=== PATIENT | female | born 1955 | race Caucasian/White ===

== ENCOUNTER 2017-07-09 14:01 | Emergency (ER) | payer OTHER ==
--- OUTSIDE RECORDS SUMMARY | 2017-07-09 14:03 | XMS REPORT | Clinical Summary ---
:1955 Author Organization [facility] Address [address] [place] [address] Phone Care Team Providers Name Role Phone Unavailable Primary Care Provider Unavailable Allergies Active Allergy Reactions Severity Noted Date Comments Cephalexin Other (See Comments) 07/28/2008 Cyclobenzaprine Hcl Other (See Comments) 07/28/2008 Loss of feeling in extremities Current Medications Prescription Sig. Disp. Refills Start Date End Date Status magnesium oxide Take 1 tablet 60 tablet 0 02/13/2017 Active (MAG-OX) 400 mg (400 mg total) by 8 tablet mouth 2 (two) times daily. blood-glucose Use as 1 each 0 02/13/2017 Active meter kit instructed. 8 metFORMIN Take 1 tablet 60 tablet 0 02/14/2017 Active (GLUCOPHAGE) 500 (500 mg total) by 8 MG tablet mouth 2 (two) times daily with breakfast and dinner. arformoterol Take 2 mLs (15 120 mL 0 02/13/2017 (BROVANA) 15 mcg total) by 8 mcg/2 mL nebulization 2 nebulizer (two) times daily solution for 30 days. budesonide Take 2 mLs (0.5 120 mL 0 02/13/2017 (PULMICORT) 0.5 mg total) by 8 mg/2 mL nebulizer nebulization 2 solution (two) times daily for 30 days. aspirin 81 MG EC Take 1 tablet (81 30 tablet 0 02/14/2017 tablet mg total) by 8 mouth daily for 30 days. furosemide Take 1 tablet (20 30 tablet 0 02/14/2017 (LASIX) 20 MG mg total) by 8 tablet mouth daily for 30 days. ipratropium-albut Take 3 mLs by 540 mL 0 02/13/2017 patricia (DUO-NEB) nebulization 8 0.5 mg-3 mg(2.5 every 4 (four) mg base)/3 mL hours for 30 nebulizer days. solution predniSONE Take 4 tablets 120 tablet 0 02/14/2017 (DELTASONE) 10 MG (40 mg total) by 8 tablet mouth daily for 30 days. insulin detemir 10 units every morning 4.5 mL 0 02/13/2017 Discontinued (LEVEMIR 5 units every evening. 7 FLEXTOUCH) 100 unit/mL (3 mL) InPn injection levoFLOXacin Take 1 tablet 10 tablet 0 02/14/2017 (LEVAQUIN) 500 MG (500 mg total) by 7 tablet mouth daily for 10 days. metoprolol Take 0.5 tablets 15 tablet 0 02/15/2017 (LOPRESSOR) 25 MG (12.5 mg total) 8 tablet by mouth daily for 30 days. Active Problems Problem Noted Date Acute hypercapnic respiratory failure ([facility]) 02/04/2017 Acute exacerbation of chronic obstructive pulmonary disease (COPD) ([facility]) 02/04 Acute diastolic CHF (congestive heart failure), NYHA class 4 ([facility]) 02/04/2017 Pleural effusion, right 02/04/2017 Community acquired pneumonia of right lower lobe of lung ([facility]) 02/04/2017 Severe protein-calorie malnutrition (Moe: less than 60% of standard 2016 weight) ([facility]) Encounters Date Type Specialty Care Team Description 02/04/2017 - Hospital Encounter Cardiology Duarte, Acute diastolic CHF 02/17/2017 Sander (congestive heart MD Aleta failure), NYHA class Arif, Sahar, 4 ([facility]);Acute MD exacerbation of josefa Alarcon MD pulmonary disease (COPD) ([facility]);Acute hypercapnic respiratory failure ([facility]);Community acquired pneumonia of right lower lobe of lung ([facility]);Pleural effusion, right;Severe protein-calorie malnutrition (Moe: less than 60% of standard weight) ([facility]) 02/04/2017 Orders Only General Internal Medicine after 07/08/2016 Social History Tobacco Use Types Packs/Day Years Used Date Never Assessed Sex Assigned at Date Recorded Not on file Last Filed Vital Signs Vital Sign Reading Time Taken Blood Pressure 111/66 02/17/2017 8:30 PM LIBRARIAN Pulse 80 02/17/2017 8:59 PM LIBRARIAN Temperature 36.8 C (98.2 F) 02/17/2017 8:30 PM LIBRARIAN Respiratory Rate 20 02/17/2017 8:59 PM LIBRARIAN Oxygen Saturation 97% 02/17/2017 8:59 PM LIBRARIAN Inhaled Oxygen Concentration - - Weight 37.1 kg (81 lb 14.4 oz) 02/17/2017 12:00 PM LIBRARIAN Height 165.1 cm (5' 5") 02/04/2017 6:00 PM LIBRARIAN Body Mass Index 13.63 02/17/2017 12:00 PM LIBRARIAN Plan of Treatment Not on file Results RHYTHM STRIP - SCAN (03/03/2017 2:01 PM)Only the most recent of2 resultswithin the time period is included.POC-Glucose meter (02/17/2017 8:29 PM)Only the most recent of37 resultswithin the time period is included. Component Value Ref Range POC-Glucose Meter 175 (H)Comment: TESTED AT [address] 70 - 110 mg/[place] [address] Specimen Performing Laboratory Blood [facility] [address] [address] CBC with platelet count + automated diff (02/17/2017 6:11 AM)Only the most recent of14 resultswithin the time period is included. Component Value Ref Range WBC 17.1 (H) 3.5 - 10.5 K/L RBC 3.96 3.93 - 5.22 M/L Hemoglobin 10.7 (L) 11.2 - 15.7 GM/DL Hematocrit 34.8 34.1 - 44.9 % MCV 87.9 79.4 - 94.8 fL MCH 27.0 25.6 - 32.2 pg MCHC 30.7 (L) 32.2 - 35.5 GM/DL RDW 15.6 (H) 11.7 - 14.4 % Platelets 334 150 - 450 K/CU MM MPV 11.1 9.4 - 12.3 fL nRBC 0 0 - 0 /100 WBC % Neutros 84 % % Lymphs 8 % % Monos 7 % % Eos 0 % % Baso 0 % # Neutros 14.26 (H) 1.56 - 6.13 K/L # Lymphs 1.43 1.18 - 3.74 K/L # Monos 1.10 (H) 0.24 - 0.36 K/L # Eos 0.05 0.04 - 0.36 K/L # Baso 0.01 0.01 - 0.08 K/L Immature Granulocytes-Relative 1 0 - 1 % Specimen Performing Laboratory Blood - Arm, [address] [address] CBC with platelet count + automated diff (02/17/2017 6:11 AM)Only the most recent of14 resultswithin the time period is included. Specimen Performing Laboratory Blood Narrative The following orders were created for panel order CBC with platelet count + automated diff. Procedure Abnormality Status --------- ------ CBC with platelet count ...[[id number]]AbnormalFinal result Please view results for these tests on the individual orders. Magnesium (02/17/2017 6:11 AM)Only the most recent of10 resultswithin the time period is included. Component Value Ref Range Magnesium 2.2 1.6 - 2.6 mg/dL Specimen Performing Laboratory Blood - Arm, [address] [address] Basic Metabolic Panel (02/17/2017 6:11 AM)Only the most recent of9 resultswithin the time period is included. Component Value Ref Range Sodium 133 (L) 136 - 145 meq/L Potassium 4.3 3.5 - 5.1 meq/L Chloride 91 (L) 98 - 107 meq/L CO2 34 (H) 22 - 29 meq/L BUN 19 7 - 21 mg/dL Creatinine 0.61 0.57 - 1.25 mg/dL Glucose 61 (L) 70 - 105 mg/dL Calcium 8.9 8.4 - 10.2 mg/dL EGFR 100Comment: ESTIMATED GFR IS NOT ACCURATE mL/min/1.73 sq m CREATININE CLEARANCE IN PREDICTING GLOMERULAR FILTRATION RATE. ESTIMATED GFR IS NOT APPLICABLE FOR DIALYSIS PATIENTS. Specimen Performing Laboratory Blood - Arm, Left [facility] [address] ECG 12 lead (02/15/2017 12:09 PM)Only the most recent of3 resultswithin the time period is included. Specimen Performing Laboratory GE MUSE Narrative Ventricular Rate 91 BPM Atrial Rate 91 BPM P-R Interval 94 ms QRS Duration 86 ms Q-T Interval 348 ms QTC Calculation(Bazett) 428 ms P [place] 39 degrees R [place] 21 degrees T [place] 65 degrees Sinus rhythm with short DE Moderate voltage criteria for LVH, may be normal variant When compared with ECG of 04-FEB-2017 21:46, Amplitude of the T waves has increased Confirmed by Julieta FREEMAN, KEVYN ([id number]) on 02/16/2017 8:24:59 AM Procedure Note Interface, External Ris In - 02/16/2017 8:25 AM LIBRARIAN Ventricular Rate 91 BPM Atrial Rate 91 BPM P-R Interval 94 ms QRS Duration 86 ms Q-T Interval 348 ms QTC Calculation(Bazett) 428 ms P [place] 39 degrees R [place] 21 degrees T [place] 65 degrees Sinus rhythm with short DE Moderate voltage criteria for LVH, may be normal variant When compared with ECG of 04-FEB-2017 21:46, Amplitude of the T waves has increased Confirmed by Julieta FREEMAN, KEVYN ([id number]) on 02/16/2017 8:24:59 AM Blood gas, arterial (02/13/2017 12:31 PM)Only the most recent of6 resultswithin the time period is included. Component Value Ref Range pH, Arterial 7.47 (H) 7.35 - 7.45 pCO2, Arterial 60 (H) 35 - 45 mmHg pO2, Arterial 79 (L) 80 - 90 mmHg O2 Sat, Arterial 96.2 96.0 - 97.0 % HCO3, Arterial 42 (HH) 21 - 29 mmol/L Base Excess, Arterial 15.6 (H) -2.0 - 3.0 mmol/L Patient Temperature 36.7 C FIO2 32.0 % Specimen Performing Laboratory Blood, Arterial - Arm, Left [facility] [address] [address] XR chest 1 view portable / bedside (02/11/2017 8:50 AM)Only the most recent of4 resultswithin the time period is included. Specimen Performing Laboratory GE RIS Narrative FINAL REPORT Chest one view INDICATION: Shortness of breath COMPARISON: 02/09/2017 IMPRESSION: There are low lung volumes with pulmonary vascular congestion and grossly stable perihilar and basilar opacities which could indicate atelectasis and mild edema. Pneumonitis should be excluded clinically. There is stable costophrenic angle blunting. The cardiomediastinal contours are stable. Postoperative, degenerative, and posttraumatic osseous changes are stable. No pneumothorax is seen. Signed: Reginald Mcclendon MD Report Verified Date/Time:02/11/2017 08:47:53 Reading Location: [facility] C0[facility] Neuro Reading Room Procedure Note Interface, External Ris In - 02/11/2017 8:51 AM LIBRARIAN FINAL REPORT Chest one view INDICATION: Shortness of breath COMPARISON: 02/09/2017 IMPRESSION: There are low lung volumes with pulmonary vascular congestion and grossly stable perihilar and basilar opacities which could indicate atelectasis and mild edema. Pneumonitis should be excluded clinically. There is stable costophrenic angle blunting. The cardiomediastinal contours are stable. Postoperative, degenerative, and posttraumatic osseous changes are stable. No pneumothorax is seen. Signed: Reginald Mcclendon MD Report Verified Date/Time: 02/11/2017 08:47:53 Reading Location: [facility] C0[facility] Neuro Reading Room Sputum Culture + Gram Stain (02/10/2017 11:29 AM) Component Value Ref Range Result 4+ Normal respiratory paul present Gram Stain Result 2+ WBCs Gram Stain Result 0-5 epithelial cells Gram Stain Result 4+ gram negative rods Gram Stain Result 4+ gram positive cocci in clusters Gram Stain Result 1+ yeast with pseudohyphae Specimen Performing Laboratory Sputum - Expectorated [facility] [address] [address] Manual Differential (02/10/2017 10:22 AM) Component Value Ref Range % Neutros (manual) 89 % % Lymphs (manual) 2 % % Monos (manual) 6 % % Bands (manual) 3 0 - 10 % # Neutros (manual) 24.21 (H) 1.80 - 8.00 K/L # Lymphs (manual) 0.54 (L) 1.48 - 4.50 K/L # Monos (manual) 1.63 (H) 0.00 - 1.30 K/L # Bands (manual) 0.8 0.0 - 0.8 K/L Total Counted 100 Bands plus Segmented Neutrophils 25.02 WBC Morphology Normal Platelet Morphology Normal RBC Morphology Normal Specimen Performing Laboratory Blood [address] [address] Lactic acid, venous, whole blood (02/10/2017 10:14 AM) Component Value Ref Range Lactate, Venous 1.8 0.5 - 2.2 mmol/L Specimen Performing Laboratory Blood - Arm, Left [address] [address] Narrative Effective 07/15/2015: Units/Reference Range Change New: 0.5-2.2 mmol/LPrevious: 5-20 mg/dL Hemoglobin A1c (02/08/2017 5:07 AM) Component Value Ref Range Hemoglobin A1C 5.8 4.3 - 6.1 % Specimen Performing Laboratory Blood [address] [address] Comprehensive metabolic panel (02/08/2017 5:07 AM)Only the most recent of5 resultswithin the time period is included. Component Value Ref Range Protein, Total 6.0 6.0 - 8.3 gm/dL Albumin 3.2 (L) 3.5 - 5.0 g/dL Alkaline Phosphatase 97 40 - 150 U/L Total Bilirubin 0.3 0.2 - 1.2 mg/dL Sodium 139 136 - 145 meq/L Potassium 4.7 3.5 - 5.1 meq/L Chloride 96 (L) 98 - 107 meq/L CO2 37 (H) 22 - 29 meq/L BUN 12 7 - 21 mg/dL Creatinine 0.54 (L) 0.57 - 1.25 mg/dL Glucose 172 (H) 70 - 105 mg/dL Calcium 8.7 8.4 - 10.2 mg/dL AST 33 5 - 34 U/L ALT 33 6 - 55 U/L EGFR 115Comment: ESTIMATED GFR IS NOT ACCURATE mL/min/1.73 sq m CREATININE CLEARANCE IN PREDICTING GLOMERULAR FILTRATION RATE. ESTIMATED GFR IS NOT APPLICABLE FOR DIALYSIS PATIENTS. Specimen Performing Laboratory Blood [facility] [address] [place] [address], [place] [address] US thoracentesis (02/07/2017 5:40 PM) Specimen Performing Laboratory GE RIS Narrative FINAL REPORT Procedure: Ultrasound-guided right thoracentesis, 02/07/2017 HISTORY: Right pleural effusion Anesthesia: 1% lidocaine Modality: Ultrasound Approach: Right posterior lateral chest TECHNIQUE: After obtaining written informed consent this procedure was performed without untoward effect. The chest was scanned and the maximum pocket of fluid was identified in the posterolateral aspect right hemithorax. Only a small effusion was demonstrated. The skin overlying this site was prepped and anesthetized and a 5 Cuban needle/catheter was inserted into the right pleural space. Four 25 cc of yellowish fluid were removed. A chest x-ray was ordered. CONCLUSION: Ultrasound-guided thoracentesis Signed: Dell Pacheco MD Report Verified Date/Time:02/07/2017 18:23:13 Reading Location: [address] Ultrasound Reading Room Procedure Note Interface, External Ris In - 02/07/2017 6:25 PM LIBRARIAN FINAL REPORT Procedure: Ultrasound-guided right thoracentesis, 02/07/2017 HISTORY: Right pleural effusion Anesthesia: 1% lidocaine Modality: Ultrasound Approach: Right posterior lateral chest TECHNIQUE: After obtaining written informed consent this procedure was performed without untoward effect. The chest was scanned and the maximum pocket of fluid was identified in the posterolateral aspect right hemithorax. Only a small effusion was demonstrated. The skin overlying this site was prepped and anesthetized and a 5 Cuban needle/catheter was inserted into the right pleural space. Four 25 cc of yellowish fluid were removed. A chest x-ray was ordered. CONCLUSION: Ultrasound-guided thoracentesis Signed: Dell Pacheco MD Report Verified Date/Time: 02/07/2017 18:23:13 Reading Location: [facility] P006 Ultrasound Reading Room Body fluid culture + gram stain (02/07/2017 5:15 PM) Component Value Ref Range Result No growth Gram Stain Result <1+ WBCs Gram Stain Result No organisms seen Specimen Performing Laboratory Body Fluid - Pleural, [address] [address] Body fluid cell count with differential (02/07/2017 5:15 PM) Component Value Ref Range Appearance Slightly Cloudy (A) Clear Color Yellow (A) Colorless, Straw RBCs 1000 (H) <=1 /cu mm Adjusted WBC Count 620 (H) <=5 /cu mm Lining Cells 74 (H) <=1 /cu mm % Segs 21 % % Lymphs 30 % % Monos 49 % % Eos 0 % % Baso 0 % Container Body Fluid EDTA Tube Specimen Performing Laboratory Body Fluid - Pleural, [address] [address] Protein, body fluid (02/07/2017 5:15 PM) Component Value Ref Range Protein, Fluid 1.8 Light's criteria identifies effusions if one or more are present: Pleural to serum protein ratio of more than 0.5; Pleural to Serum LDH of more than 0.6; Pleural LDH of more than two third of upper serum reference limit g/dL Specimen Performing Laboratory Body Fluid - Pleural, [address] [address] Narrative Absence of reference range indicates that normals have not been defined. Assay performance has not been validated for this type of specimen. Lactate dehydrogenase (LDH), body fluid (02/07/2017 5:15 PM) Component Value Ref Range LDH, Fluid <90 Light's criteria identifies effusions if one or more are present: Pleural to serum protein ratio of more than 0.5; Pleural to serum LDH ratio of more than 0.6; Pleural LDH more than two third of upper serum reference limit U/L Specimen Performing Laboratory Body Fluid - Pleural, [address] [address] Narrative Absence of reference range indicates that normals have not been defined. Assay performance has not been validated for this type of specimen. PT/aPTT (02/07/2017 11:22 AM) Component Value Ref Range Protime 13.4 11.7 - 14.7 seconds INR 1.0 <=5.9 PTT 25.9 22.5 - 36.0 seconds Specimen Performing Laboratory Blood - Arm, [address] [address] Narrative RECOMMENDED COUMADIN/WARFARIN INR THERAPY RANGES STANDARD DOSE: 2.0 - 3.0 Includes: PROPHYLAXIS for venous thrombosis, systemic embolization; TREATMENT for venous thrombosis and/or pulmonary embolus. HIGH RISK: Target INR is 2.5-3.5 for patients with mechanical heart valves. Lactate dehydrogenase (LDH) (02/07/2017 11:22 AM) Component Value Ref Range LDH 296 (H) 125 - 220 U/L Specimen Performing Laboratory Blood - Arm, [address] [address] Lipid panel (02/07/2017 3:22 AM) Component Value Ref Range Triglycerides 101 mg/dL Cholesterol 134 mg/dL HDL 52 mg/dL LDL Calculated 62 mg/dL Specimen Performing Laboratory Blood - Arm, [address] [address] Narrative Triglyceride Reference Range: Low Risk <150 [id number] High Risk 200-499 Very High Risk>=500 Cholesterol Reference Range: Low Risk <200 [id number] High Risk>240 HDL Cholesterol Reference Range: Low Risk >=60 High Risk <40 LDL Cholesterol Reference Range: Optimal<100 Near [id number] [id number] [id number] Very High >=190 CT chest without IV contrast (02/06/2017 10:03 PM) Specimen Performing Laboratory GE RIS Narrative FINAL REPORT INDICATION: 62-year-old female with hypoxia. COMPARISON: Chest radiograph February 04, 2017 TECHNIQUE: Chest CT exam WITHOUT intravenous contrast. The exam was performed according to our department dose-optimization protocol, which includes automated exposure control, adjustments of mA and kV according to patient size. Iterative reconstructions are also sometimes employed. FINDINGS: There is a moderate low-density layering right pleural effusion with associated partial collapse of the right basilar segments. There is no pneumonia, pulmonary edema, or left pleural effusion. Central airways are clear. No mediastinal or hilar lymphadenopathy is demonstrated. Mildly patulous esophagus is noted. Thyroid gland unremarkable. There is mild enlargement of the left atrium. There is no coronary artery calcification and there is mild calcified plaque of the aortic arch. Main pulmonary artery and thoracic aorta are normal in caliber. No pericardial effusion. Partial imaging of the upper abdomen is notable for a IVC filter. Osseous structures are notable for scoliosis and several contiguous compression deformities of the thoracolumbar junction resulting in severe kyphosis. No suspicious osseous lesion demonstrated. IMPRESSION: Moderate right pleural effusion with partial collapse of the right basilar segments. No pneumonia, pulmonary edema, or left pleural effusion. Mild cardiomegaly. Scoliosis and severe kyphosis at the thoracolumbar junction. Signed: Jh Sepulveda MD Report Verified Date/Time:02/06/2017 23:24:50 Reading Location: [address] Consult Reading Room Procedure Note Interface, External Ris In - 02/06/2017 11:27 PM LIBRARIAN FINAL REPORT INDICATION: 62-year-old female with hypoxia. COMPARISON: Chest radiograph February 04, 2017 TECHNIQUE: Chest CT exam WITHOUT intravenous contrast. The exam was performed according to our department dose-optimization protocol, which includes automated exposure control, adjustments of mA and kV according to patient size. Iterative reconstructions are also sometimes employed. FINDINGS: There is a moderate low-density layering right pleural effusion with associated partial collapse of the right basilar segments. There is no pneumonia, pulmonary edema, or left pleural effusion. Central airways are clear. No mediastinal or hilar lymphadenopathy is demonstrated. Mildly patulous esophagus is noted. Thyroid gland unremarkable. There is mild enlargement of the left atrium. There is no coronary artery calcification and there is mild calcified plaque of the aortic arch. Main pulmonary artery and thoracic aorta are normal in caliber. No pericardial effusion. Partial imaging of the upper abdomen is notable for a IVC filter. Osseous structures are notable for scoliosis and several contiguous compression deformities of the thoracolumbar junction resulting in severe kyphosis. No suspicious osseous lesion demonstrated. IMPRESSION: Moderate right pleural effusion with partial collapse of the right basilar segments. No pneumonia, pulmonary edema, or left pleural effusion. Mild cardiomegaly. Scoliosis and severe kyphosis at the thoracolumbar junction. Signed: Jh Sepulveda MD Report Verified Date/Time: 02/06/2017 23:24:50 Reading Location: [address] Consult Reading Room /Free T4 If Indicated (02/06/2017 6:44 PM) Component Value Ref Range TSH 0.47 0.35 - 4.94 uIU/mL Specimen Performing Laboratory Blood - Arm, [address] [address] Troponin I (02/06/2017 12:50 PM)Only the most recent of4 resultswithin the time period is included. Component Value Ref Range Troponin I 0.08 (H) 0.00 - 0.03 ng/mL Specimen Performing Laboratory Blood [address] [address] Narrative Troponin I (TnI) levels must be interpreted in the context of the presenting symptoms and the clinical findings. Elevated TnI levels indicate myocardial damage, but are not specific for ischemic heart disease. Elevated TnI levels are seen in patients with other cardiac conditions (including myocarditis and congestive heart failure), and slight TnI elevations occur in patients with other conditions, including sepsis, renal failure, acidosis, acute neurological disease, and persistent tachyarrhythmia. Vancomycin level, trough (02/06/2017 8:41 AM) Component Value Ref Range Vancomycin Tr 8.6 (L) 10.0 - 20.0 ug/mL Specimen Performing Laboratory Blood [address] [address] Hepatitis C PCR, Quantitative (02/06/2017 5:45 AM) Component Value Ref Range HCV PCR, Quantitative HCV RNA not detected HCV RNA not detected Specimen Performing Laboratory Blood - Arm, [address] [address] Narrative This test uses a Real-Time Polymerase Chain Reaction (RT-PCR) methodology and was performed using ANN Ampliprep/ANN TaqMan HCV test kit version 2.0 ( [employer]). Reportable range for this assay is 15 - 100,000,000 IU per mL (1.18 - 8.00 Log IU/mL). This test uses a Real-Time Polymerase Chain Reaction (RT-PCR) methodology and was performed using ANN Ampliprep/ANN TaqMan HCV test kit version 2.0 ( [employer] Reportable range for this assay is 15 - 100,000,000 IU per mL (1.18 - 8.00 Log IU/mL). ECHOCARDIOGRAM REPORT - SCAN (02/05/2017 5:20 PM)2D Echo W/Doppler(CW/PW/Color ) (02/05/2017 10:40 AM) Component Value Ref Range Ejection Fraction Specimen Performing Laboratory [facility] ECHO HEARTLAB S[facility]NEY CPACS Narrative Transthoracic Echocardiography Report (TTE) Demographics Patient Name ALEE KOO Date of Study 02/05/2017 Cailin [id number] GenderFemale Visit Number [id number] Race Unknown [id number] Number [id number] Number Date of Birth1955 Referring Physician Age62 year(s) Director Of Outpatient Services Freddy Fowler [facility] AnalystIzomary Casper InterpretingPhysician [place] Procedure Type of Study TTE procedure:2DECHO W DOPPLER(CW/PW/COLOR) (JES) Indications:Shortness of breath. Clinical History HGB 10.1 HCT 32.9 % COPD Congestive Heart Failure Pleural effusion Pneumonia Height: 65 inches Weight: 42.64 kg (94 lbs) BSA: 1.44 m^2 BMI: 15.64 kg/m^2 HR: 90 bpm BP: 114/73 mmHg Summary 1. All of the LV segments contract normally . LVEF by Nichole's method of disk assessment is normal (>60%) 2. Estimated peak systolic PA pressure is 35-40 mmHg . 3. The right ventricular chamber size and systolic function are within normal limits. 4. Normal LA pressure at rest but LA volume is dilated. Previous Study No prior exam available for comparison. Signature Findings Left Ventricle No evidence of LV hypertrophy. Increased ( cardiac index 3.5-4.0 L/min/m2) cardiac output state at rest is noted. All of the LV segments contract normally . Global LV systolic function normal . LVEF by Nichole's method of disk assessment is normal (>60%) . The LVEF was measured using Nichole's bi-plane method of disk . The left ventricle is chamber size (by vol index) is normal (female - LVED vol - 29-61ml/m2 ). Normal diastolic function. Left AtriumLA size is severely enlarged (>48 ml/m2 ) . Right VentricleThe right ventricular chamber size and systolic function are within normal limits. Right Atrium RA cavity size is normal . Aortic Valve Normal AoV structure and function. No evidence of aortic regurgitation. Mitral Valve Mild MV leaflet thickening. No evidence of mitral regurgitation. Tricuspid ValveMild TV leaflet thickening. Mild tricuspid regurgitation. Estimated peak systolic PA pressure is 35-40 mmHg . Pulmonic Valve Normal PV structure and function. AortaAortic root size (SInus of Valsalva diameter) is normal . PericardiumA trivial pericardial effusion is present . IVC/SVC/PA/PV/PleuralThe estimated RA pressure by IVC dynamics 5-10mmHg . Chambers/Structures Left Atrium LA Volume: 79.52 ml LA Area: 24.32 cm^ 2 LA Vol. Index: 55 ml/m^2 Left Ventricle LV Septum Diastolic: 0.93 cm LV PW Diastolic: 0.75 cm LVEDV Nichole's:79.93 ml LVESV Nichole's:27.68 ml LVEF Nichole's: 65.4 % LVEDVI: 56 ml/m^2 LVOT Diameter: 1.7 cm LVESVI: 19 ml/m^2 Right Atrium RA Vol. (Sngl Plane): 35.34 ml Right Ventricle TAPSE: 2.4 cm Aorta Ao Root S of Fatimah.: 2.83 cm Doppler/Quantitative Measurements Mitral Valve MV Peak E-Wave: 0.82 m/sMV Peak A-Wave: 0.55 m /s E/A Ratio: 1.5 Peak Gradient: 2.69 mmHg Deceleration Time: 162 msec MV Alfredo. Peak: Tissue Doppler E' Lateral Velocity: 0.16 m/s E/E': 5.05 LVOT Peak Velocity: 1.41 m/s Peak Gradient: 7.96 mmHg Mean Velocity: 1.02 m/s Mean Gradient: 4.65 mmHg LVOT Diameter: 1.7 cm LVOT VTI: 27.63 cm LVOT Area: 2.27 cm^2LVOT SV:62.68 ml LVOT CO: 5.64 l/min LVOT CI: 3.92 l/min/m^2 Tricuspid Valve TR Velocity: 2.84 m/s TR Gradient: 32.24 mmHg Procedure Note Interface, External Ris In - 02/05/2017 4:54 PM LIBRARIAN Transthoracic Echocardiography Report (TTE) Demographics Patient Name ALEE KOO Date of Study 02/05/2017 L Gender Female Visit Number [id number] Race Unknown Room Number 1051 Number Date of 1955 Referring Physician Age 62 year(s) Director Of Outpatient Services Freddy Fowler [facility] Line [employer] Tower Juan Casper Interpreting Physician S[place] Oliver[place] Procedure Type of Study TTE procedure:2DECHO W DOPPLER(CW/PW/COLOR) (JES) Indications:Shortness of breath. Clinical History HGB 10.1 HCT 32.9 % COPD Congestive Heart Failure Pleural effusion Pneumonia Height: 65 inches Weight: 42.64 kg (94 lbs) BSA: 1.44 m^2 BMI: 15.64 kg/m^2 HR: 90 bpm BP: 114/73 mmHg Summary 1. All of the LV segments contract normally . LVEF by Nichole's method of disk assessment is normal (>60%) 2. Estimated peak systolic PA pressure is 35-40 mmHg . 3. The right ventricular chamber size and systolic function are within normal limits. 4. Normal LA pressure at rest but LA volume is dilated. Previous Study No prior exam available for comparison. Signature Findings Left Ventricle No evidence of LV hypertrophy. Increased (cardiac index 3.5-4.0 L/min/m2) cardiac output state at rest is noted. All of the LV segments contract normally . Global LV systolic function normal . LVEF by Nichole's method of disk assessment is normal (>60%) . The LVEF was measured using Nichole's bi-plane method of disk . The left ventricle is chamber size (by vol index) is normal (female - LVED vol - 29-61ml/m2). Normal diastolic function. Left Atrium LA size is severely enlarged (>48 ml/m2) . Right Ventricle The right ventricular chamber size and systolic function are within normal limits. Right Atrium RA cavity size is normal . Aortic Valve Normal AoV structure and function. No evidence of aortic regurgitation. Mitral Valve Mild MV leaflet thickening. No evidence of mitral regurgitation. Tricuspid Valve Mild TV leaflet thickening. Mild tricuspid regurgitation. Estimated peak systolic PA pressure is 35-40 mmHg . Pulmonic Valve Normal PV structure and function. Aorta Aortic root size (SInus of Valsalva diameter) is normal . Pericardium A trivial pericardial effusion is present . IVC/SVC/PA/PV/Pleural The estimated RA pressure by IVC dynamics 5-10mmHg . Chambers/Structures Left Atrium LA Volume: 79.52 ml LA Area: 24.32 cm^2 LA Vol. Index: 55 ml/m^2 Left Ventricle LV Septum Diastolic: 0.93 cm LV PW Diastolic: 0.75 cm LVEDV Nichole's:79.93 ml LVESV Nichole's:27.68 ml LVEF Nichole's: 65.4 % LVEDVI: 56 ml/m^2 LVOT Diameter: 1.7 cm LVESVI: 19 ml/m^2 Right Atrium RA Vol. (Sngl Plane): 35.34 ml Right Ventricle TAPSE: 2.4 cm Aorta Ao Root S of Fatimah.: 2.83 cm Doppler/Quantitative Measurements Mitral Valve MV Peak E-Wave: 0.82 m/s MV Peak A-Wave: 0.55 m/s E/A Ratio: 1.5 Peak Gradient: 2.69 mmHg Deceleration Time: 162 msec MV Alfredo. Peak: Tissue Doppler E' Lateral Velocity: 0.16 m/s E/E': 5.05 LVOT Peak Velocity: 1.41 m/s Peak Gradient: 7.96 mmHg Mean Velocity: 1.02 m/s Mean Gradient: 4.65 mmHg LVOT Diameter: 1.7 cm LVOT VTI: 27.63 cm LVOT Area: 2.27 cm^2 LVOT SV:62.68 ml LVOT CO: 5.64 l/min LVOT CI: 3.92 l/min/m^2 Tricuspid Valve TR Velocity: 2.84 m/s TR Gradient: 32.24 mmHg PERIPHERAL VASCULAR REPORT - SCAN (02/05/2017 7:20 AM)Procalcitonin (2016 4:34 AM) Component Value Ref Range Procalcitonin 0.26 (H) <0.05 ng/mL Specimen Performing Laboratory Blood - Arm, [facility] [address] [place] [address] Narrative SEPSIS RISK (ng/mL) Low:0.05-0.50 Intermediate: 0.51-2.00 High: >=2.01 Blood culture (02/05/2017 4:33 AM)Only the most recent of2 resultswithin the time period is included. Component Value Ref Range Result No growth in 5 days Specimen Performing Laboratory Blood - Arm, [facility] [address] [place] [address] Venous doppler legs bilateral (02/04/2017 10:30 PM) Component Value Ref Range Ejection Fraction Specimen Performing Laboratory [facility] Imp[facility] Right Impression 1. There is no deep venous obstruction in the common femoral, profunda femoral, femoral, popliteal, posterior tibial or peroneal veins where visualized. 2. There is no superficial venous obstruction in the great saphenous vein where visualized. Left Impression 1. There is no deep venous obstruction in the common femoral, profunda femoral, femoral, popliteal, posterior tibial or peroneal veins where visualized. 2. There is no superficial venous obstruction in the great saphenous vein where visualized. Conclusions Summary Venous duplex imaging and compression of the bilateral lower extremities were performed. The veins were technically difficult to visualize due to edema and patient body habitus. The bilateral venous systems were patent and compressible with no evidence of thrombus where visualized. The venous Doppler waveforms were pulsatile indicating possible elevated right heart filling pressure. Signature Velocities are measured in cm/s ; Diameters are measured in cm Narrative PV LAB - Lower Extremities DVT Study Demographics Patient ALEE Bazzi Date of Study 02/04/2017 Age 62 Visit [id number] Gender Female Date of 01/30 Number Referring Sander Room Number 7104 Physician Aleta Duarte Director Of Outpatient Services Kasandra Aden T InterpretingAdam Schmid Physician , BRENDA Procedure Type of Study: Veins: Lower Extremities DVT Study, VENOUS DOPPLER LEG, BILATERAL. Indications for Study:History of deep vein thrombosis and Leg Edema. Patient Status:JES. Study Location:Portable. Technical Quality:Adequate visualization. Risk Factors History of Disease + +----+ + !Diagnosis !Date!Comments ! + +----+ + !History/Risk Factors: !!CHF, COPD, pancreatitis and smoker. ! + +----+ + Procedure Note Interface, External Ris In - 02/05/2017 5:52 AM LIBRARIAN PV LAB - Lower Extremities DVT Study Demographics Patient Name ALEE KOO Date of Study 02/04/2017 Age 62 Visit Number [id number] Gender Female Date of 1955 Number Referring Sander Room Number [id number] Physician Aleta Duarte Director Of Outpatient Services Kasandra Aden T Interpreting Adam Schmid, Physician , RPVI Procedure Type of Study: Veins: Lower Extremities DVT Study, VENOUS DOPPLER LEG, BILATERAL. Indications for Study:History of deep vein thrombosis and Leg Edema. Patient Status:JES. Study Location:Portable. Technical Quality:Adequate visualization. Risk Factors History of Disease + +----+ + !Diagnosis !Date!Comments ! + +----+ + !History/Risk Factors: ! !CHF, COPD, pancreatitis and smoker. ! + +----+ + Impressions Right Impression 1. There is no deep venous obstruction in the common femoral, profunda femoral, femoral, popliteal, posterior tibial or peroneal veins where visualized. 2. There is no superficial venous obstruction in the great saphenous vein where visualized. Left Impression 1. There is no deep venous obstruction in the common femoral, profunda femoral, femoral, popliteal, posterior tibial or peroneal veins where visualized. 2. There is no superficial venous obstruction in the great saphenous vein where visualized. Conclusions Summary Venous duplex imaging and compression of the bilateral lower extremities were performed. The veins were technically difficult to visualize due to edema and patient body habitus. The bilateral venous systems were patent and compressible with no evidence of thrombus where visualized. The venous Doppler waveforms were pulsatile indicating possible elevated right heart filling pressure. Signature Velocities are measured in cm/s ; Diameters are measured in cm Rapid Influenza A&B Screen (02/04/2017 10:09 PM) Component Value Ref Range Rapid Influenza A Antigen Negative Negative, Inconclusive Rapid influenza B Antigen Negative Negative, Inconclusive Specimen Performing Laboratory Nasal - Nasopharyngeal Swab [address] [address] Respiratory Panel [facility] (02/04/2017 10:07 PM) Component Value Ref Range Human Metapneumovirus Not detected Not detected, Inconclusive Rhinovirus Not detected Not detected, Inconclusive Influenza A Not detected Not detected, Inconclusive Influenza A subtype H1 Not detected Not detected, Inconclusive Influenza A Subtype H3 Not detected Not detected, Inconclusive Influenza A Subtype H1-2009 Not detected Not detected, Inconclusive Influenza B Not detected Not detected, Inconclusive Respiratory Syncytial Virus Not detected Not detected, Inconclusive Parainfluenza Virus 1 Not detected Not detected, Inconclusive Parainfluenza Virus 2 Not detected Not detected, Inconclusive Parainfluenza virus 3 Not detected Not detected, Inconclusive Parainfluenza Virus 4 Not detected Not detected, Inconclusive Adenovirus Not detected Not detected, Inconclusive Coronavirus 229E Not detected Not detected, Inconclusive Coronavirus HKU1 Not detected Not detected, Inconclusive Coronavirus NL63 Not detected Not detected, Inconclusive Coronavirus OC43 Not detected Not detected, Inconclusive Bordetella Pertussis Not detected Not detected, Inconclusive Chlamydophila Pneumoniae Not detected Not detected, Inconclusive Mycoplasma Pneumoniae Not detected Not detected, Inconclusive Specimen Performing Laboratory Nasopharyngeal - Nasopharynx, [address] [address] HIV-1 Antigen with HIV-1/2 Antibody (02/04/2017 9:40 PM) Component Value Ref Range HIV-1 Antigen with HIV 1&2 Antibody Nonreactive Nonreactive Specimen Performing Laboratory Blood - Arm, [address] [address] Hepatitis C antibody (02/04/2017 9:40 PM) Component Value Ref Range Hepatitis C Ab Equivocal (A) Nonreactive Specimen Performing Laboratory Blood - Arm, [address] [address] Hepatitis B core antibody, total (02/04/2017 9:40 PM) Component Value Ref Range Hep B Core Total Ab Nonreactive Nonreactive Specimen Performing Laboratory Blood - Arm, [address] [address] Prothrombin time/INR (02/04/2017 9:33 PM) Component Value Ref Range Protime 14.3 11.7 - 14.7 seconds INR 1.1 <=5.9 Specimen Performing Laboratory Blood - Arm, [address] [address] Narrative RECOMMENDED COUMADIN/WARFARIN INR THERAPY RANGES STANDARD DOSE: 2.0 - 3.0 Includes: PROPHYLAXIS for venous thrombosis, systemic embolization; TREATMENT for venous thrombosis and/or pulmonary embolus. HIGH RISK: Target INR is 2.5-3.5 for patients with mechanical heart valves. Phosphorus (02/04/2017 9:33 PM) Component Value Ref Range Phosphorus 3.4 2.3 - 4.7 mg/dL Specimen Performing Laboratory Blood - Arm, [address] [address] B-type Natriuretic Factor (BNP) (02/04/2017 9:33 PM) Component Value Ref Range BNP 364 (H) 0 - 100 pg/mL Specimen Performing Laboratory Blood - Arm, [address] [address] Urine culture (02/04/2017 9:13 PM) Component Value Ref Range Result Result >100,000 col/mL Susan glabrata (A) Specimen Performing Laboratory Urine - Urine, [address] [address] Urinalysis w/Microscopic (02/04/2017 9:12 PM) Component Value Ref Range Color, UA Yellow Clarity, UA Clear Specific [place], UA 1.019 1.001 - 1.035 pH, UA 5.0 5.0 - 8.0 Protein, UA 10 mg/dL (A) Negative Glucose, UA Negative Negative Ketones, UA 80 mg/dL (A) Negative Bilirubin, UA Negative Negative Blood, UA Negative Negative Nitrite, UA Negative Negative Leukocytes, UA Small (A) Negative Urobilinogen, UA 0.2 0.2 - 1.0 mg/dL RBC, UA 1 /HPF WBC, UA 9 /HPF Bacteria, UA Rare Mucus Rare Squam Epithel, UA 1 /HPF Casts 2 /LPF Crystals, Urine Rare Specimen Source Urine, [place] Specimen Performing Laboratory Urine - Urine, [address] [address] after 07/08/2016
--- OUTSIDE RECORDS SUMMARY | 2017-07-09 14:05 | XMS REPORT ---
:1955 [facility] [address] [place] [id number] Care Team Providers Name Role Phone LINO ROSALESGENEVALICHA Unavailable Unavailable Problems This patient has no known problems. Allergies, Adverse Reactions, Alerts This patient has no known allergies or adverse reactions. Medications This patient has no known medications. Results Test Description Test Time Test Comments Text Results Atomic Results Result Comments POCT-GLUCOSE METER 2017-02-17 20:48:00 Test Item Value Reference Range Comments POC-GLUCOSE METER (BEAKER) (test 175 mg/dL 70-110 TESTED AT [facility] [address] [place] [address] znhq=1393) [facility] [address] POCT-GLUCOSE [id number] 08:27:00 Test Item Value Reference Range Comments POC-GLUCOSE METER (BEAKER) 83 mg/dL 70-110 TESTED AT [address] (test kgum=4767) [facility] [address] CBC W/PLT COUNT & AUTO [id number] 07:16:00 Test Item Value Reference Range Comments WHITE BLOOD CELL COUNT (BEAKER) (test fjmn=919) 17.1 K/ L 3.5-10.5 RED BLOOD CELL COUNT (BEAKER) (test cqxe=406) 3.96 M/ L 3.93-5.22 HEMOGLOBIN (BEAKER) (test lpac=077) 10.7 GM/DL 11.2-15.7 HEMATOCRIT (BEAKER) (test ytti=426) 34.8 % 34.1-44.9 MEAN CORPUSCULAR VOLUME (BEAKER) (test wcjc=974) 87.9 fL 79.4-94.8 MEAN CORPUSCULAR HEMOGLOBIN (BEAKER) (test 27.0 pg 25.6-32.2 tqdm=883) MEAN CORPUSCULAR HEMOGLOBIN CONC (BEAKER) (test 30.7 GM/DL 32.2-35.5 ceez=789) RED CELL DISTRIBUTION WIDTH (BEAKER) (test 15.6 % 11.7-14.4 hzjz=215) PLATELET COUNT (BEAKER) (test dakj=419) 334 K/CU MM 150-450 MEAN PLATELET VOLUME (BEAKER) (test ouqq=845) 11.1 fL 9.4-12.3 NUCLEATED RED BLOOD CELLS (BEAKER) (test 0 /100 WBC 0-0 bvmu=987) NEUTROPHILS RELATIVE PERCENT (BEAKER) (test 84 % fmhn=945) LYMPHOCYTES RELATIVE PERCENT (BEAKER) (test 8 % uesh=300) MONOCYTES RELATIVE PERCENT (BEAKER) (test 7 % jfif=328) EOSINOPHILS RELATIVE PERCENT (BEAKER) (test 0 % zhtr=362) BASOPHILS RELATIVE PERCENT (BEAKER) (test 0 % lbum=574) NEUTROPHILS ABSOLUTE COUNT (BEAKER) (test 14.26 K/ L 1.56-6.13 zewp=206) LYMPHOCYTES ABSOLUTE COUNT (BEAKER) (test 1.43 K/ L 1.18-3.74 gifx=118) MONOCYTES ABSOLUTE COUNT (BEAKER) (test 1.10 K/ L 0.24-0.36 lwck=693) EOSINOPHILS ABSOLUTE COUNT (BEAKER) (test 0.05 K/ L 0.04-0.36 hmqq=271) BASOPHILS ABSOLUTE COUNT (BEAKER) (test 0.01 K/ L 0.01-0.08 ysso=579) IMMATURE GRANULOCYTES-RELATIVE PERCENT (BEAKER) 1 % 0-1 (test gdch=6988) [id number] 07:00:00 Test Item Value Reference Range Comments MAGNESIUM (BEAKER) (test toxb=018) 2.2 mg/dL 1.6-2.6 BASIC METABOLIC [id number] 07:00:00 Test Item Value Reference Range Comments SODIUM (BEAKER) (test 133 meq/L 136-145 wbbi=525) POTASSIUM (BEAKER) (test 4.3 meq/L 3.5-5.1 jqkn=787) CHLORIDE (BEAKER) (test 91 meq/L 98-107 kild=779) CO2 (BEAKER) (test 34 meq/L 22-29 qfta=179) BLOOD UREA NITROGEN 19 mg/dL 7-21 (BEAKER) (test dkwc=495) CREATININE (BEAKER) (test 0.61 mg/dL 0.57-1.25 asan=090) GLUCOSE RANDOM (BEAKER) 61 mg/dL 70-105 (test wdsw=526) CALCIUM (BEAKER) (test 8.9 mg/dL 8.4-10.2 cgcp=998) EGFR (BEAKER) (test 100 mL/min/1.73 sq m ESTIMATED GFR IS NOT evue=4444) ACCURATE CREATININE CLEARANCE IN PREDICTING GLOMERULAR FILTRATION RATE. ESTIMATED GFR IS NOT APPLICABLE FOR DIALYSIS PATIENTS. POCT-GLUCOSE [id number] 20:42:00 Test Item Value Reference Range Comments POC-GLUCOSE METER (BEAKER) 183 mg/dL 70-110 TESTED AT [address] (test rrkf=1534) [facility] [address] POCT-GLUCOSE [id number] 11:38:00 Test Item Value Reference Range Comments POC-GLUCOSE METER (BEAKER) 130 mg/dL 70-110 TESTED AT [address] (test calx=6948) [place] [id number] POCT-GLUCOSE [id number] 08:08:00 Test Item Value Reference Range Comments POC-GLUCOSE METER (BEAKER) 67 mg/dL 70-110 Will Repeat Test/TESTED AT (test risq=8334) [address] [address] [id number] 06:51:00 Test Item Value Reference Range Comments MAGNESIUM (BEAKER) (test kyov=866) 2.0 mg/dL 1.6-2.6 BASIC METABOLIC [id number] 06:51:00 Test Item Value Reference Range Comments SODIUM (BEAKER) (test 134 meq/L 136-145 vomd=256) POTASSIUM (BEAKER) (test 4.4 meq/L 3.5-5.1 wdou=781) CHLORIDE (BEAKER) (test 92 meq/L 98-107 ewpx=285) CO2 (BEAKER) (test 34 meq/L 22-29 rbof=366) BLOOD UREA NITROGEN 17 mg/dL 7-21 (BEAKER) (test snyp=065) CREATININE (BEAKER) (test 0.56 mg/dL 0.57-1.25 alsz=602) GLUCOSE RANDOM (BEAKER) 66 mg/dL 70-105 (test xhfc=515) CALCIUM (BEAKER) (test 8.8 mg/dL 8.4-10.2 sfib=649) EGFR (BEAKER) (test 110 mL/min/1.73 sq m ESTIMATED GFR IS NOT mskq=4377) ACCURATE CREATININE CLEARANCE IN PREDICTING GLOMERULAR FILTRATION RATE. ESTIMATED GFR IS NOT APPLICABLE FOR DIALYSIS PATIENTS. CBC W/PLT COUNT & AUTO [id number] 06:00:00 Test Item Value Reference Range Comments WHITE BLOOD CELL COUNT (BEAKER) (test rbps=437) 17.0 K/ L 3.5-10.5 RED BLOOD CELL COUNT (BEAKER) (test qzqh=814) 4.16 M/ L 3.93-5.22 HEMOGLOBIN (BEAKER) (test wtaj=530) 11.1 GM/DL 11.2-15.7 HEMATOCRIT (BEAKER) (test zedo=015) 36.3 % 34.1-44.9 MEAN CORPUSCULAR VOLUME (BEAKER) (test flml=054) 87.3 fL 79.4-94.8 MEAN CORPUSCULAR HEMOGLOBIN (BEAKER) (test 26.7 pg 25.6-32.2 fasi=579) MEAN CORPUSCULAR HEMOGLOBIN CONC (BEAKER) (test 30.6 GM/DL 32.2-35.5 fsjg=280) RED CELL DISTRIBUTION WIDTH (BEAKER) (test 15.6 % 11.7-14.4 zvcd=312) PLATELET COUNT (BEAKER) (test ffxs=171) 293 K/CU MM 150-450 MEAN PLATELET VOLUME (BEAKER) (test lidx=960) 11.7 fL 9.4-12.3 NUCLEATED RED BLOOD CELLS (BEAKER) (test 0 /100 WBC 0-0 ssvk=821) NEUTROPHILS RELATIVE PERCENT (BEAKER) (test 81 % kxdw=188) LYMPHOCYTES RELATIVE PERCENT (BEAKER) (test 9 % qsie=173) MONOCYTES RELATIVE PERCENT (BEAKER) (test 8 % wemu=876) EOSINOPHILS RELATIVE PERCENT (BEAKER) (test 1 % sbed=490) BASOPHILS RELATIVE PERCENT (BEAKER) (test 0 % jrfl=312) NEUTROPHILS ABSOLUTE COUNT (BEAKER) (test 13.77 K/ L 1.56-6.13 zrtq=731) LYMPHOCYTES ABSOLUTE COUNT (BEAKER) (test 1.51 K/ L 1.18-3.74 egmt=442) MONOCYTES ABSOLUTE COUNT (BEAKER) (test 1.35 K/ L 0.24-0.36 qfzd=859) EOSINOPHILS ABSOLUTE COUNT (BEAKER) (test 0.08 K/ L 0.04-0.36 fwok=814) BASOPHILS ABSOLUTE COUNT (BEAKER) (test 0.04 K/ L 0.01-0.08 lghc=044) IMMATURE GRANULOCYTES-RELATIVE PERCENT (BEAKER) 1 % 0-1 (test ievx=8985) POCT-GLUCOSE [id number] 21:21:00 Test Item Value Reference Range Comments POC-GLUCOSE METER (BEAKER) 177 mg/dL 70-110 TESTED AT [address] (test ovwf=9928) [facility] [address] POCT-GLUCOSE [id number] 17:52:00 Test Item Value Reference Range Comments POC-GLUCOSE METER (BEAKER) 191 mg/dL 70-110 TESTED AT [address] (test hiyr=6669) [facility] [address] POCT-GLUCOSE [id number] 11:46:00 Test Item Value Reference Range Comments POC-GLUCOSE METER (BEAKER) 145 mg/dL 70-110 TESTED AT [address] (test ehtf=8358) [facility] [address] POCT-GLUCOSE [id number] 07:59:00 Test Item Value Reference Range Comments POC-GLUCOSE METER (BEAKER) 89 mg/dL 70-110 TESTED AT [address] (test iwrq=4185) [facility] [address] [id number] 04:29:00 Test Item Value Reference Range Comments MAGNESIUM (BEAKER) (test mcpf=115) 2.1 mg/dL 1.6-2.6 BASIC METABOLIC [id number] 04:29:00 Test Item Value Reference Range Comments SODIUM (BEAKER) (test 134 meq/L 136-145 rkvi=039) POTASSIUM (BEAKER) (test 4.7 meq/L 3.5-5.1 geei=584) CHLORIDE (BEAKER) (test 91 meq/L 98-107 vbpo=989) CO2 (BEAKER) (test 36 meq/L 22-29 cmdv=456) BLOOD UREA NITROGEN 14 mg/dL 7-21 (BEAKER) (test kegt=488) CREATININE (BEAKER) (test 0.56 mg/dL 0.57-1.25 ydjv=400) GLUCOSE RANDOM (BEAKER) 138 mg/dL 70-105 (test stdu=528) CALCIUM (BEAKER) (test 8.3 mg/dL 8.4-10.2 hbzo=723) EGFR (BEAKER) (test 110 mL/min/1.73 sq m ESTIMATED GFR IS NOT ucce=7311) ACCURATE CREATININE CLEARANCE IN PREDICTING GLOMERULAR FILTRATION RATE. ESTIMATED GFR IS NOT APPLICABLE FOR DIALYSIS PATIENTS. CBC W/PLT COUNT & AUTO [id number] 04:18:00 Test Item Value Reference Range Comments WHITE BLOOD CELL COUNT (BEAKER) (test ahgj=475) 14.1 K/ L 3.5-10.5 RED BLOOD CELL COUNT (BEAKER) (test yodl=235) 4.06 M/ L 3.93-5.22 HEMOGLOBIN (BEAKER) (test ozkm=499) 11.1 GM/DL 11.2-15.7 HEMATOCRIT (BEAKER) (test klsv=795) 35.9 % 34.1-44.9 MEAN CORPUSCULAR VOLUME (BEAKER) (test fohd=415) 88.4 fL 79.4-94.8 MEAN CORPUSCULAR HEMOGLOBIN (BEAKER) (test 27.3 pg 25.6-32.2 czrs=250) MEAN CORPUSCULAR HEMOGLOBIN CONC (BEAKER) (test 30.9 GM/DL 32.2-35.5 twow=030) RED CELL DISTRIBUTION WIDTH (BEAKER) (test 15.5 % 11.7-14.4 wbjo=543) PLATELET COUNT (BEAKER) (test ovep=863) 309 K/CU MM 150-450 MEAN PLATELET VOLUME (BEAKER) (test keba=050) 10.7 fL 9.4-12.3 NUCLEATED RED BLOOD CELLS (BEAKER) (test 0 /100 WBC 0-0 qhwg=440) NEUTROPHILS RELATIVE PERCENT (BEAKER) (test 89 % rtys=871) LYMPHOCYTES RELATIVE PERCENT (BEAKER) (test 5 % xfxs=124) MONOCYTES RELATIVE PERCENT (BEAKER) (test 5 % dcdw=268) EOSINOPHILS RELATIVE PERCENT (BEAKER) (test 0 % lkoh=568) BASOPHILS RELATIVE PERCENT (BEAKER) (test 0 % tdtp=473) NEUTROPHILS ABSOLUTE COUNT (BEAKER) (test 12.50 K/ L 1.56-6.13 xycn=689) LYMPHOCYTES ABSOLUTE COUNT (BEAKER) (test 0.68 K/ L 1.18-3.74 eltv=390) MONOCYTES ABSOLUTE COUNT (BEAKER) (test 0.74 K/ L 0.24-0.36 qzxl=404) EOSINOPHILS ABSOLUTE COUNT (BEAKER) (test 0.00 K/ L 0.04-0.36 gvpq=534) BASOPHILS ABSOLUTE COUNT (BEAKER) (test 0.01 K/ L 0.01-0.08 jwfn=312) IMMATURE GRANULOCYTES-RELATIVE PERCENT (BEAKER) 1 % 0-1 (test xgec=4166) POCT-GLUCOSE [id number] 21:24:00 Test Item Value Reference Range Comments POC-GLUCOSE METER (BEAKER) 257 mg/dL 70-110 TESTED AT [address] (test nmij=0445) [place] [address] POCT-GLUCOSE [id number] 17:18:00 Test Item Value Reference Range Comments POC-GLUCOSE METER (BEAKER) 171 mg/dL 70-110 TESTED AT [address] (test gemr=3662) [place] [id number] POCT-GLUCOSE [id number] 12:43:00 Test Item Value Reference Range Comments POC-GLUCOSE METER (BEAKER) 178 mg/dL 70-110 TESTED AT [address] (test tvzy=4555) [place] [id number] CBC W/PLT COUNT & AUTO [id number] 09:33:00 Test Item Value Reference Range Comments WHITE BLOOD CELL COUNT (BEAKER) (test ynan=198) 15.2 K/ L 3.5-10.5 RED BLOOD CELL COUNT (BEAKER) (test pove=894) 4.36 M/ L 3.93-5.22 HEMOGLOBIN (BEAKER) (test lmlh=876) 11.8 GM/DL 11.2-15.7 HEMATOCRIT (BEAKER) (test lubx=926) 37.6 % 34.1-44.9 MEAN CORPUSCULAR VOLUME (BEAKER) (test ztro=263) 86.2 fL 79.4-94.8 MEAN CORPUSCULAR HEMOGLOBIN (BEAKER) (test 27.1 pg 25.6-32.2 lbpz=148) MEAN CORPUSCULAR HEMOGLOBIN CONC (BEAKER) (test 31.4 GM/DL 32.2-35.5 grvy=999) RED CELL DISTRIBUTION WIDTH (BEAKER) (test 15.6 % 11.7-14.4 ooep=567) PLATELET COUNT (BEAKER) (test iukq=006) 289 K/CU MM 150-450 MEAN PLATELET VOLUME (BEAKER) (test ldas=258) 12.1 fL 9.4-12.3 NUCLEATED RED BLOOD CELLS (BEAKER) (test 0 /100 WBC 0-0 ucnu=627) NEUTROPHILS RELATIVE PERCENT (BEAKER) (test 78 % vrji=486) LYMPHOCYTES RELATIVE PERCENT (BEAKER) (test 10 % zqer=904) MONOCYTES RELATIVE PERCENT (BEAKER) (test 10 % wzzo=248) EOSINOPHILS RELATIVE PERCENT (BEAKER) (test 1 % qftf=519) BASOPHILS RELATIVE PERCENT (BEAKER) (test 0 % uymv=425) NEUTROPHILS ABSOLUTE COUNT (BEAKER) (test 11.75 K/ L 1.56-6.13 ufur=090) LYMPHOCYTES ABSOLUTE COUNT (BEAKER) (test 1.54 K/ L 1.18-3.74 gpdw=946) MONOCYTES ABSOLUTE COUNT (BEAKER) (test 1.56 K/ L 0.24-0.36 mswv=722) EOSINOPHILS ABSOLUTE COUNT (BEAKER) (test 0.08 K/ L 0.04-0.36 ieou=531) BASOPHILS ABSOLUTE COUNT (BEAKER) (test 0.03 K/ L 0.01-0.08 gkmd=397) IMMATURE GRANULOCYTES-RELATIVE PERCENT (BEAKER) 1 % 0-1 (test nhoc=8059) POCT-GLUCOSE [id number] 07:00:00 Test Item Value Reference Range Comments POC-GLUCOSE METER (BEAKER) 101 mg/dL 70-110 TESTED AT [facility] [address] [facility] (test yivm=1704) [facility] [address] [id number] 05:09:00 Test Item Value Reference Range Comments MAGNESIUM (BEAKER) (test 2.3 mg/dL 1.6-2.6 Specimen slightly hemolyzed wwcb=248) BASIC METABOLIC [id number] 05:09:00 Test Item Value Reference Range Comments SODIUM (BEAKER) (test 134 meq/L 136-145 akyy=048) POTASSIUM (BEAKER) (test 5.1 meq/L 3.5-5.1 Specimen slightly ynni=574) hemolyzed CHLORIDE (BEAKER) (test 96 meq/L 98-107 wvcn=416) CO2 (BEAKER) (test 33 meq/L 22-29 pcew=945) BLOOD UREA NITROGEN 13 mg/dL 7-21 (BEAKER) (test xaxr=169) CREATININE (BEAKER) (test 0.48 mg/dL 0.57-1.25 Specimen slightly ueyc=449) hemolyzed GLUCOSE RANDOM (BEAKER) 73 mg/dL 70-105 (test unem=083) CALCIUM (BEAKER) (test 8.3 mg/dL 8.4-10.2 jvrp=125) EGFR (BEAKER) (test 131 mL/min/1.73 sq m ESTIMATED GFR IS NOT dymk=4351) ACCURATE CREATININE CLEARANCE IN PREDICTING GLOMERULAR FILTRATION RATE. ESTIMATED GFR IS NOT APPLICABLE FOR DIALYSIS PATIENTS. POCT-GLUCOSE [id number] 21:25:00 Test Item Value Reference Range Comments POC-GLUCOSE METER (BEAKER) 334 mg/dL 70-110 Will Repeat Test/TESTED AT (test iccs=6909) [address] [address] BLOOD GAS, [id number] 12:45:00 Test Item Value Reference Range Comments PH ARTERIAL (BEAKER) (test vbvq=526) 7.47 7.35-7.45 PCO2 ARTERIAL (BEAKER) (test qpgv=129) 60 mmHg 35-45 PO2 ARTERIAL (BEAKER) (test jubh=601) 79 mmHg 80-90 O2 SATURATION ARTERIAL (BEAKER) (test czkn=914) 96.2 % 96.0-97.0 HCO3 ARTERIAL (BEAKER) (test ndqs=104) 42 mmol/L 21-29 BASE EXCESS ARTERIAL (BEAKER) (test oqpg=410) 15.6 mmol/L -2.0-3.0 PATIENT TEMPERATURE (BEAKER) (test nucq=7695) 36.7 C FIO2 (BEAKER) (test rhal=2395) 32.0 % POCT-GLUCOSE [id number] 11:48:00 Test Item Value Reference Range Comments POC-GLUCOSE METER (BEAKER) 140 mg/dL 70-110 TESTED AT [address] (test lkyd=1477) [facility] [address] BASIC METABOLIC [id number] 09:02:00 Test Item Value Reference Range Comments SODIUM (BEAKER) (test 135 meq/L 136-145 mjms=077) POTASSIUM (BEAKER) (test 3.4 meq/L 3.5-5.1 hfuz=370) CHLORIDE (BEAKER) (test 89 meq/L 98-107 edrc=945) CO2 (BEAKER) (test 43 meq/L 22-29 defc=871) BLOOD UREA NITROGEN 15 mg/dL 7-21 (BEAKER) (test imwn=433) CREATININE (BEAKER) (test 0.48 mg/dL 0.57-1.25 dxyl=694) GLUCOSE RANDOM (BEAKER) 77 mg/dL 70-105 (test ymzr=626) CALCIUM (BEAKER) (test 8.1 mg/dL 8.4-10.2 kwgd=997) EGFR (BEAKER) (test 131 mL/min/1.73 sq m ESTIMATED GFR IS NOT ogcd=2944) ACCURATE CREATININE CLEARANCE IN PREDICTING GLOMERULAR FILTRATION RATE. ESTIMATED GFR IS NOT APPLICABLE FOR DIALYSIS PATIENTS. POCT-GLUCOSE [id number] 06:50:00 Test Item Value Reference Range Comments POC-GLUCOSE METER (BEAKER) 92 mg/dL 70-110 TESTED AT [facility] [address] [facility] (test ecwv=9507) [facility] [address] CBC W/PLT COUNT & AUTO [id number] 04:12:00 Test Item Value Reference Range Comments WHITE BLOOD CELL COUNT (BEAKER) (test tkle=221) 11.7 K/ L 3.5-10.5 RED BLOOD CELL COUNT (BEAKER) (test kjqu=818) 3.67 M/ L 3.93-5.22 HEMOGLOBIN (BEAKER) (test vttw=381) 9.9 GM/DL 11.2-15.7 HEMATOCRIT (BEAKER) (test dtfu=443) 32.5 % 34.1-44.9 MEAN CORPUSCULAR VOLUME (BEAKER) (test fsin=850) 88.6 fL 79.4-94.8 MEAN CORPUSCULAR HEMOGLOBIN (BEAKER) (test 27.0 pg 25.6-32.2 ymfn=405) MEAN CORPUSCULAR HEMOGLOBIN CONC (BEAKER) (test 30.5 GM/DL 32.2-35.5 wpwr=082) RED CELL DISTRIBUTION WIDTH (BEAKER) (test 15.2 % 11.7-14.4 zywb=947) PLATELET COUNT (BEAKER) (test tcnc=339) 263 K/CU MM 150-450 MEAN PLATELET VOLUME (BEAKER) (test vpkb=444) 10.4 fL 9.4-12.3 NUCLEATED RED BLOOD CELLS (BEAKER) (test 0 /100 WBC 0-0 vnxa=774) NEUTROPHILS RELATIVE PERCENT (BEAKER) (test 78 % gfcj=106) LYMPHOCYTES RELATIVE PERCENT (BEAKER) (test 11 % jqux=935) MONOCYTES RELATIVE PERCENT (BEAKER) (test 10 % zeni=743) EOSINOPHILS RELATIVE PERCENT (BEAKER) (test 0 % bxnj=495) BASOPHILS RELATIVE PERCENT (BEAKER) (test 0 % tkwu=553) NEUTROPHILS ABSOLUTE COUNT (BEAKER) (test 9.19 K/ L 1.56-6.13 tant=414) LYMPHOCYTES ABSOLUTE COUNT (BEAKER) (test 1.26 K/ L 1.18-3.74 elte=394) MONOCYTES ABSOLUTE COUNT (BEAKER) (test 1.15 K/ L 0.24-0.36 ezds=592) EOSINOPHILS ABSOLUTE COUNT (BEAKER) (test 0.02 K/ L 0.04-0.36 ismu=442) BASOPHILS ABSOLUTE COUNT (BEAKER) (test 0.01 K/ L 0.01-0.08 tzmi=880) IMMATURE GRANULOCYTES-RELATIVE PERCENT (BEAKER) 1 % 0-1 (test rsok=5328) POCT-GLUCOSE [id number] 21:22:00 Test Item Value Reference Range Comments POC-GLUCOSE METER (BEAKER) 198 mg/dL 70-110 TESTED AT [address] (test brgg=0998) [place] [address] POCT-GLUCOSE [id number] 16:57:00 Test Item Value Reference Range Comments POC-GLUCOSE METER (BEAKER) 297 mg/dL 70-110 TESTED AT [facility] [address] [facility] (test haew=0362) [place] [id number] SPUTUM CULTURE + GRAM [id number] 13:17:00 Test Item Value Reference Range Comments CULTURE (BEAKER) (test 4+ Normal respiratory paul pjep=2551) present GRAM STAIN RESULT (BEAKER) 2+ WBCs (test ovzg=5058) GRAM STAIN RESULT (BEAKER) 0-5 epithelial cells (test qwty=48388) GRAM STAIN RESULT (BEAKER) 4+ gram negative rods (test xczt=13656) GRAM STAIN RESULT (BEAKER) 4+ gram positive cocci in (test ihlr=609039) clusters GRAM STAIN RESULT (BEAKER) 1+ yeast with pseudohyphae (test iyjt=797016) CBC W/PLT COUNT & AUTO [id number] 12:07:00 Test Item Value Reference Range Comments WHITE BLOOD CELL COUNT (BEAKER) (test uygb=177) 16.8 K/ L 3.5-10.5 RED BLOOD CELL COUNT (BEAKER) (test lmbd=696) 4.39 M/ L 3.93-5.22 HEMOGLOBIN (BEAKER) (test jtxp=931) 12.0 GM/DL 11.2-15.7 HEMATOCRIT (BEAKER) (test koey=625) 39.3 % 34.1-44.9 MEAN CORPUSCULAR VOLUME (BEAKER) (test eras=414) 89.5 fL 79.4-94.8 MEAN CORPUSCULAR HEMOGLOBIN (BEAKER) (test 27.3 pg 25.6-32.2 vrzs=617) MEAN CORPUSCULAR HEMOGLOBIN CONC (BEAKER) (test 30.5 GM/DL 32.2-35.5 ktmd=592) RED CELL DISTRIBUTION WIDTH (BEAKER) (test 15.3 % 11.7-14.4 wsln=339) PLATELET COUNT (BEAKER) (test jpde=152) 312 K/CU MM 150-450 MEAN PLATELET VOLUME (BEAKER) (test yamt=462) 10.9 fL 9.4-12.3 NUCLEATED RED BLOOD CELLS (BEAKER) (test 0 /100 WBC 0-0 zfbx=774) NEUTROPHILS RELATIVE PERCENT (BEAKER) (test 89 % psxp=325) LYMPHOCYTES RELATIVE PERCENT (BEAKER) (test 3 % swct=147) MONOCYTES RELATIVE PERCENT (BEAKER) (test 7 % skpy=552) EOSINOPHILS RELATIVE PERCENT (BEAKER) (test 0 % niaj=236) BASOPHILS RELATIVE PERCENT (BEAKER) (test 0 % kxqz=094) NEUTROPHILS ABSOLUTE COUNT (BEAKER) (test 15.01 K/ L 1.56-6.13 ijvf=384) LYMPHOCYTES ABSOLUTE COUNT (BEAKER) (test 0.56 K/ L 1.18-3.74 mcum=224) MONOCYTES ABSOLUTE COUNT (BEAKER) (test 1.11 K/ L 0.24-0.36 ncbt=348) EOSINOPHILS ABSOLUTE COUNT (BEAKER) (test 0.00 K/ L 0.04-0.36 vrto=560) BASOPHILS ABSOLUTE COUNT (BEAKER) (test 0.02 K/ L 0.01-0.08 ynuv=504) IMMATURE GRANULOCYTES-RELATIVE PERCENT (BEAKER) 1 % 0-1 (test wuzb=9931) POCT-GLUCOSE [id number] 11:54:00 Test Item Value Reference Range Comments POC-GLUCOSE METER (BEAKER) 179 mg/dL 70-110 TESTED AT [address] (test lmao=0474) [place] [address] BASIC METABOLIC [id number] 04:52:00 Test Item Value Reference Range Comments SODIUM (BEAKER) (test 137 meq/L 136-145 qxtd=112) POTASSIUM (BEAKER) (test 3.8 meq/L 3.5-5.1 ugie=262) CHLORIDE (BEAKER) (test 93 meq/L 98-107 ewsi=558) CO2 (BEAKER) (test 36 meq/L 22-29 jzlg=133) BLOOD UREA NITROGEN 17 mg/dL 7-21 (BEAKER) (test opgb=281) CREATININE (BEAKER) (test 0.54 mg/dL 0.57-1.25 ishd=512) GLUCOSE RANDOM (BEAKER) 103 mg/dL 70-105 (test gjnc=553) CALCIUM (BEAKER) (test 8.5 mg/dL 8.4-10.2 ypkc=006) EGFR (BEAKER) (test 115 mL/min/1.73 sq m ESTIMATED GFR IS NOT tbac=6395) ACCURATE CREATININE CLEARANCE IN PREDICTING GLOMERULAR FILTRATION RATE. ESTIMATED GFR IS NOT APPLICABLE FOR DIALYSIS PATIENTS. POCT-GLUCOSE [id number] 21:10:00 Test Item Value Reference Range Comments POC-GLUCOSE METER (BEAKER) 289 mg/dL 70-110 TESTED AT [address] (test qjay=2865) [place] [address] CBC W/PLT COUNT & AUTO [id number] 15:29:00 Test Item Value Reference Range Comments WHITE BLOOD CELL COUNT (BEAKER) (test krwz=445) 20.2 K/ L 3.5-10.5 RED BLOOD CELL COUNT (BEAKER) (test jses=017) 4.70 M/ L 3.93-5.22 HEMOGLOBIN (BEAKER) (test rasd=072) 12.6 GM/DL 11.2-15.7 HEMATOCRIT (BEAKER) (test rmmf=521) 43.3 % 34.1-44.9 MEAN CORPUSCULAR VOLUME (BEAKER) (test wyne=904) 92.1 fL 79.4-94.8 MEAN CORPUSCULAR HEMOGLOBIN (BEAKER) (test 26.8 pg 25.6-32.2 vciz=288) MEAN CORPUSCULAR HEMOGLOBIN CONC (BEAKER) (test 29.1 GM/DL 32.2-35.5 hipk=620) RED CELL DISTRIBUTION WIDTH (BEAKER) (test 15.2 % 11.7-14.4 uzta=677) PLATELET COUNT (BEAKER) (test jwgw=139) 301 K/CU MM 150-450 MEAN PLATELET VOLUME (BEAKER) (test ejrg=155) 11.0 fL 9.4-12.3 NUCLEATED RED BLOOD CELLS (BEAKER) (test 0 /100 WBC 0-0 cqje=026) NEUTROPHILS RELATIVE PERCENT (BEAKER) (test 95 % lyms=033) LYMPHOCYTES RELATIVE PERCENT (BEAKER) (test 2 % xflk=999) MONOCYTES RELATIVE PERCENT (BEAKER) (test 2 % sbqy=291) EOSINOPHILS RELATIVE PERCENT (BEAKER) (test 0 % tucf=852) BASOPHILS RELATIVE PERCENT (BEAKER) (test 0 % xsui=082) NEUTROPHILS ABSOLUTE COUNT (BEAKER) (test 19.18 K/ L 1.56-6.13 aweb=467) LYMPHOCYTES ABSOLUTE COUNT (BEAKER) (test 0.40 K/ L 1.18-3.74 tdtm=905) MONOCYTES ABSOLUTE COUNT (BEAKER) (test 0.37 K/ L 0.24-0.36 dkbd=497) EOSINOPHILS ABSOLUTE COUNT (BEAKER) (test 0.00 K/ L 0.04-0.36 ywjk=798) BASOPHILS ABSOLUTE COUNT (BEAKER) (test 0.04 K/ L 0.01-0.08 sgbz=095) IMMATURE GRANULOCYTES-RELATIVE PERCENT (BEAKER) 1 % 0-1 (test mwag=9232) POCT-GLUCOSE [id number] 13:19:00 Test Item Value Reference Range Comments POC-GLUCOSE METER (BEAKER) 198 mg/dL 70-110 TESTED AT [facility] [address] (test binz=9247) [facility] [address] BODY FLUID CULTURE + GRAM [id number] 11:22:00 Test Item Value Reference Range Comments CULTURE (BEAKER) (test lhwk=3279) No growth GRAM STAIN RESULT (BEAKER) (test <1+ WBCs uvvt=6198) GRAM STAIN RESULT (BEAKER) (test No organisms seen yfot=20176) RAD, CHEST, 1 VIEW, NON [id number] 08:47:00Reason for exam:->sobShould this be performed at the bedside?->YesFINAL REPORT Chest one view INDICATION: Shortness of breath COMPARISON: 02/09/2017 IMPRESSION : There are low lung volumes with pulmonary vascular congestion and grossly stable perihilar and basilar opacities which could indicate atelectasis and mild edema. Pneumonitis should be excluded clinically. There is stable costophrenic angle blunting. The cardiomediastinal contours are stable. Postoperative, degenerative, and posttraumatic osseous changes are stable. No pneumothorax isseen. Signed: Reginald Mcclendon MDReport Verified Date/Time: 02/11/2017 08:47:53 Reading Location: [address] Neuro Reading Room BASIC METABOLIC [id number] 07:36:00 Test Item Value Reference Range Comments SODIUM (BEAKER) (test 138 meq/L 136-145 rmvm=307) POTASSIUM (BEAKER) (test 3.7 meq/L 3.5-5.1 kkef=018) CHLORIDE (BEAKER) (test 96 meq/L 98-107 bpes=517) CO2 (BEAKER) (test 33 meq/L 22-29 zmds=495) BLOOD UREA NITROGEN 18 mg/dL 7-21 (BEAKER) (test knrc=005) CREATININE (BEAKER) (test 0.61 mg/dL 0.57-1.25 xygl=455) GLUCOSE RANDOM (BEAKER) 247 mg/dL 70-105 (test hvtx=235) CALCIUM (BEAKER) (test 8.4 mg/dL 8.4-10.2 ejev=022) EGFR (BEAKER) (test 100 mL/min/1.73 sq m ESTIMATED GFR IS NOT hkdm=4551) ACCURATE CREATININE CLEARANCE IN PREDICTING GLOMERULAR FILTRATION RATE. ESTIMATED GFR IS NOT APPLICABLE FOR DIALYSIS PATIENTS. POCT-GLUCOSE [id number] 22:00:00 Test Item Value Reference Range Comments POC-GLUCOSE METER (BEAKER) 366 mg/dL 70-110 Will Repeat Test/TESTED AT (test eoya=8674) [facility] [address] [facility] [address] (MANUAL DIFFERENTIAL)2017-02-10 19:58:00 Test Item Value Reference Range Comments NEUTROPHILS - REL (DIFF) (BEAKER) (test 89 % vbvh=8436) LYMPHOCYTES - REL (DIFF) (BEAKER) (test 2 % fgmq=7375) MONOCYTES - REL (DIFF) (BEAKER) (test opzb=7979) 6 % BANDS - REL (DIFF) (BEAKER) (test cjvd=2105) 3 % 0-10 NEUTROPHILS - ABS (DIFF) (BEAKER) (test 24.21 K/ L 1.80-8.00 olrl=4584) LYMPHOCYTES - ABS (DIFF) (BEAKER) (test 0.54 K/ L 1.48-4.50 niea=5986) MONOCYTES - ABS (DIFF) (BEAKER) (test ljzk=5144) 1.63 K/ L 0.00-1.30 BANDS-ABS (DIFF) (BEAKER) (test nmst=1415) 0.8 K/ L 0.0-0.8 TOTAL COUNTED (BEAKER) (test ocut=5296) 100 BANDS + SEGMENTED NEUTROPHILS (BEAKER) (test 25.02 kecd=7215) WBC MORPHOLOGY (BEAKER) (test irqm=698) Normal PLT MORPHOLOGY (BEAKER) (test rblx=597) Normal RBC MORPHOLOGY (BEAKER) (test voen=540) Normal CBC W/PLT COUNT & AUTO [id number] 19:57:00 Test Item Value Reference Range Comments WHITE BLOOD CELL COUNT (BEAKER) (test ucjk=741) 27.2 K/ L 3.5-10.5 RED BLOOD CELL COUNT (BEAKER) (test vnbj=455) 4.46 M/ L 3.93-5.22 HEMOGLOBIN (BEAKER) (test iuln=613) 12.1 GM/DL 11.2-15.7 HEMATOCRIT (BEAKER) (test nvov=962) 42.9 % 34.1-44.9 MEAN CORPUSCULAR VOLUME (BEAKER) (test trke=566) 96.2 fL 79.4-94.8 MEAN CORPUSCULAR HEMOGLOBIN (BEAKER) (test 27.1 pg 25.6-32.2 utuy=488) MEAN CORPUSCULAR HEMOGLOBIN CONC (BEAKER) (test 28.2 GM/DL 32.2-35.5 klbn=124) RED CELL DISTRIBUTION WIDTH (BEAKER) (test 15.6 % 11.7-14.4 ldus=900) PLATELET COUNT (BEAKER) (test dkyk=086) 318 K/CU MM 150-450 MEAN PLATELET VOLUME (BEAKER) (test nhdf=211) 11.0 fL 9.4-12.3 NUCLEATED RED BLOOD CELLS (BEAKER) (test 0 /100 WBC 0-0 iapj=641) IMMATURE GRANULOCYTES-RELATIVE PERCENT (BEAKER) 1 % 0-1 (test qxnc=2257) POCT-GLUCOSE [id number] 17:32:00 Test Item Value Reference Range Comments POC-GLUCOSE METER (BEAKER) 213 mg/dL 70-110 TESTED AT [facility] [address] [facility] (test gdyg=5366) [facility] [address] BLOOD GAS, [id number] 14:31:00 Test Item Value Reference Range Comments PH ARTERIAL (BEAKER) (test yvtk=599) 7.31 7.35-7.45 PCO2 ARTERIAL (BEAKER) (test zwhs=519) 70 mmHg 35-45 PO2 ARTERIAL (BEAKER) (test gadd=219) 50 mmHg 80-90 O2 SATURATION ARTERIAL (BEAKER) (test bexg=464) 78.5 % 96.0-97.0 HCO3 ARTERIAL (BEAKER) (test qios=785) 34 mmol/L 21-29 BASE EXCESS ARTERIAL (BEAKER) (test cazk=613) 6.2 mmol/L -2.0-3.0 PATIENT TEMPERATURE (BEAKER) (test znyb=4166) 37.5 C FIO2 (BEAKER) (test yvuz=3286) 21.0 % BLOOD GAS, [id number] 12:37:00 Test Item Value Reference Range Comments PH ARTERIAL (BEAKER) (test java=903) 7.27 7.35-7.45 PCO2 ARTERIAL (BEAKER) (test ftmv=909) 76 mmHg 35-45 PO2 ARTERIAL (BEAKER) (test tvev=912) 123 mmHg 80-90 O2 SATURATION ARTERIAL (BEAKER) (test ebcm=089) 97.7 % 96.0-97.0 HCO3 ARTERIAL (BEAKER) (test dkhr=813) 34 mmol/L 21-29 BASE EXCESS ARTERIAL (BEAKER) (test utrj=973) 5.2 mmol/L -2.0-3.0 PATIENT TEMPERATURE (BEAKER) (test zhgg=6668) 37.5 C FIO2 (BEAKER) (test orug=6781) 36.0 % LACTIC ACID, VENOUS, WHOLE [id number] 10:45:00 Test Item Value Reference Range Comments LACTATE BLOOD VENOUS (2) (BEAKER) (test 1.8 mmol/L 0.5-2.2 qjqs=9557) Effective 07/15/2015: Units/Reference Range ChangeNew: 0.5-2.2 mmol/L Previous: 5 -20 mg/dLBLOOD GAS, [id number] 10:40:00 Test Item Value Reference Range Comments PH ARTERIAL (BEAKER) (test vswk=468) 7.19 7.35-7.45 PCO2 ARTERIAL (BEAKER) (test ydlu=368) 93 mmHg 35-45 PO2 ARTERIAL (BEAKER) (test mkpg=167) 56 mmHg 80-90 O2 SATURATION ARTERIAL (BEAKER) (test racy=577) 78.6 % 96.0-97.0 HCO3 ARTERIAL (BEAKER) (test ztef=452) 34 mmol/L 21-29 BASE EXCESS ARTERIAL (BEAKER) (test snki=286) 3.8 mmol/L -2.0-3.0 PATIENT TEMPERATURE (BEAKER) (test bauk=3362) 37.5 C FIO2 (BEAKER) (test ujqo=9092) 21.0 % BLOOD [id number] 10:00:00 Test Item Value Reference Range Comments CULTURE (BEAKER) (test rkhr=4776) No growth in 5 days POCT-GLUCOSE [id number] 08:06:00 Test Item Value Reference Range Comments POC-GLUCOSE METER (BEAKER) 297 mg/dL 70-110 TESTED AT [address] (test ptvu=5939) [place] [id number] BASIC METABOLIC [id number] 05:28:00 Test Item Value Reference Range Comments SODIUM (BEAKER) (test 136 meq/L 136-145 ajnu=825) POTASSIUM (BEAKER) (test 4.4 meq/L 3.5-5.1 gkpe=003) CHLORIDE (BEAKER) (test 98 meq/L 98-107 tzwk=530) CO2 (BEAKER) (test 30 meq/L 22-29 orxn=130) BLOOD UREA NITROGEN 23 mg/dL 7-21 (BEAKER) (test pjyp=601) CREATININE (BEAKER) (test 0.82 mg/dL 0.57-1.25 mitj=602) GLUCOSE RANDOM (BEAKER) 388 mg/dL 70-105 (test wtev=114) CALCIUM (BEAKER) (test 8.6 mg/dL 8.4-10.2 ovuv=909) EGFR (BEAKER) (test 71 mL/min/1.73 sq m ESTIMATED GFR IS NOT eoxc=8880) ACCURATE CREATININE CLEARANCE IN PREDICTING GLOMERULAR FILTRATION RATE. ESTIMATED GFR IS NOT APPLICABLE FOR DIALYSIS PATIENTS. BLOOD [id number] 05:02:00 Test Item Value Reference Range Comments CULTURE (BEAKER) (test rxos=3553) No growth in 5 days POCT-GLUCOSE [id number] 21:15:00 Test Item Value Reference Range Comments POC-GLUCOSE METER (BEAKER) 174 mg/dL 70-110 TESTED AT [address] (test qhvu=8293) [place] [id number] POCT-GLUCOSE [id number] 18:38:00 Test Item Value Reference Range Comments POC-GLUCOSE METER (BEAKER) 202 mg/dL 70-110 TESTED AT [address] (test tlmy=9762) [facility] [address] RAD, CHEST, 1 VIEW, NON [id number] 15:27:00Reason for exam:->CoughShould this be performed at the bedside?->YesFINAL REPORT TECHNIQUE: Frontal chest radiograph dated 02/09/2017 CLINICAL HISTORY: Cough COMPARISON STUDY: Chest radiograph dated 02/07/2017 IMPRESSION:Lung volumes are low. There are bilateral pleural effusions with compressive atelectasis. Focal lucency seen in the region ofthe right paratracheal stripe is secondary to projection. No pneumothorax. Cardiac silhouette cannotbe properly due to projection. Orthopedic hardware is seen in the lower thoracic/lumbar spine. Multiple old bilateral rib fractures are present. Signed: Cindy Valdovinos MDReport Verified Date/Time:02/09/2017 15:27:55 Reading Location: [facility] Radiology Reading Room POCT-GLUCOSE [id number] 12:21:00 Test Item Value Reference Range Comments POC-GLUCOSE METER (BEAKER) 185 mg/dL 70-110 TESTED AT [facility] [address] [facility] (test ngfi=5041) [facility] [address] POCT-GLUCOSE [id number] 07:52:00 Test Item Value Reference Range Comments POC-GLUCOSE METER (BEAKER) 176 mg/dL 70-110 TESTED AT [address] (test nyyv=5702) [place] [id number] BASIC METABOLIC [id number] 05:59:00 Test Item Value Reference Range Comments SODIUM (BEAKER) (test 137 meq/L 136-145 vrif=292) POTASSIUM (BEAKER) (test 4.4 meq/L 3.5-5.1 imuq=711) CHLORIDE (BEAKER) (test 93 meq/L 98-107 zluc=575) CO2 (BEAKER) (test 40 meq/L 22-29 arsv=436) BLOOD UREA NITROGEN 16 mg/dL 7-21 (BEAKER) (test unye=287) CREATININE (BEAKER) (test 0.50 mg/dL 0.57-1.25 nyea=414) GLUCOSE RANDOM (BEAKER) 181 mg/dL 70-105 (test dzju=105) CALCIUM (BEAKER) (test 8.1 mg/dL 8.4-10.2 bgdi=848) EGFR (BEAKER) (test 125 mL/min/1.73 sq m ESTIMATED GFR IS NOT kuhg=5651) ACCURATE CREATININE CLEARANCE IN PREDICTING GLOMERULAR FILTRATION RATE. ESTIMATED GFR IS NOT APPLICABLE FOR DIALYSIS PATIENTS. [id number] 05:04:00 Test Item Value Reference Range Comments MAGNESIUM (BEAKER) (test eslg=489) 2.1 mg/dL 1.6-2.6 CBC W/PLT COUNT & AUTO [id number] 04:50:00 Test Item Value Reference Range Comments WHITE BLOOD CELL COUNT (BEAKER) (test vgqc=581) 10.6 K/ L 3.5-10.5 RED BLOOD CELL COUNT (BEAKER) (test eyuy=176) 3.44 M/ L 3.93-5.22 HEMOGLOBIN (BEAKER) (test ankx=560) 9.3 GM/DL 11.2-15.7 HEMATOCRIT (BEAKER) (test qixv=955) 31.9 % 34.1-44.9 MEAN CORPUSCULAR VOLUME (BEAKER) (test losx=453) 92.7 fL 79.4-94.8 MEAN CORPUSCULAR HEMOGLOBIN (BEAKER) (test 27.0 pg 25.6-32.2 eptb=617) MEAN CORPUSCULAR HEMOGLOBIN CONC (BEAKER) (test 29.2 GM/DL 32.2-35.5 akoo=229) RED CELL DISTRIBUTION WIDTH (BEAKER) (test 15.4 % 11.7-14.4 ncpe=782) PLATELET COUNT (BEAKER) (test ljuk=721) 156 K/CU MM 150-450 MEAN PLATELET VOLUME (BEAKER) (test phvw=932) 12.0 fL 9.4-12.3 NUCLEATED RED BLOOD CELLS (BEAKER) (test 0 /100 WBC 0-0 kzdf=016) NEUTROPHILS RELATIVE PERCENT (BEAKER) (test 90 % rjwd=839) LYMPHOCYTES RELATIVE PERCENT (BEAKER) (test 5 % xoeu=286) MONOCYTES RELATIVE PERCENT (BEAKER) (test 4 % arjd=481) EOSINOPHILS RELATIVE PERCENT (BEAKER) (test 0 % zzxb=797) BASOPHILS RELATIVE PERCENT (BEAKER) (test 0 % lxff=119) NEUTROPHILS ABSOLUTE COUNT (BEAKER) (test 9.52 K/ L 1.56-6.13 hgpw=828) LYMPHOCYTES ABSOLUTE COUNT (BEAKER) (test 0.48 K/ L 1.18-3.74 ttrf=218) MONOCYTES ABSOLUTE COUNT (BEAKER) (test 0.46 K/ L 0.24-0.36 muzg=849) EOSINOPHILS ABSOLUTE COUNT (BEAKER) (test 0.00 K/ L 0.04-0.36 whfg=131) BASOPHILS ABSOLUTE COUNT (BEAKER) (test 0.01 K/ L 0.01-0.08 xidp=875) IMMATURE GRANULOCYTES-RELATIVE PERCENT (BEAKER) 1 % 0-1 (test lhgm=4576) POCT-GLUCOSE [id number] 20:33:00 Test Item Value Reference Range Comments POC-GLUCOSE METER (BEAKER) 200 mg/dL 70-110 TESTED AT [address] (test sphn=2495) [place] [address] POCT-GLUCOSE [id number] 19:24:00 Test Item Value Reference Range Comments POC-GLUCOSE METER (BEAKER) 237 mg/dL 70-110 TESTED AT [address] (test jcgb=2502) [place] [address] POCT-GLUCOSE [id number] 11:09:00 Test Item Value Reference Range Comments POC-GLUCOSE METER (BEAKER) 301 mg/dL 70-110 TESTED AT [address] (test ltgb=4321) [place] [address] HEMOGLOBIN [id number] 10:56:00 Test Item Value Reference Range Comments HEMOGLOBIN A1C (BEAKER) (test ksqm=681) 5.8 % 4.3-6.1 POCT-GLUCOSE [id number] 07:55:00 Test Item Value Reference Range Comments POC-GLUCOSE METER (BEAKER) 216 mg/dL 70-110 TESTED AT [address] (test gtuc=3234) [place] [address] HEPATITIS C PCR, [id number] 05:55:00 Test Item Value Reference Range Comments HCV RESULT COMPONENT (AKER) HCV RNA not detected HCV RNA not detected (test vsxp=7509) This test uses a Real-Time Polymerase Chain Reaction (RT-PCR) methodology and was performed using ANN Ampliprep/ANN TaqMan HCV test kit version 2.0 ( [employer]).Reportable range for this assay is 15 - 100,000, 000 IU per mL (1.18 - 8.00 Log IU/mL).This test uses a Real-Time Polymerase Chain Reaction (RT-PCR) methodology and was performed using ANN Ampliprep/ ANN TaqMan HCV test kit version 2.0 ([employer]) .Reportable range for this assay is 15 - 100,000,000 IU per mL (1.18 - 8.00 Log IU/mL).[id number] 05:50:00 Test Item Value Reference Range Comments MAGNESIUM (BEAKER) (test szpg=557) 2.0 mg/dL 1.6-2.6 COMPREHENSIVE METABOLIC [id number] 05:50:00 Test Item Value Reference Range Comments TOTAL PROTEIN (BEAKER) 6.0 gm/dL 6.0-8.3 (test nkpx=651) ALBUMIN (BEAKER) (test 3.2 g/dL 3.5-5.0 soab=2246) ALKALINE PHOSPHATASE 97 U/L 40-150 (BEAKER) (test fyzn=722) BILIRUBIN TOTAL (BEAKER) 0.3 mg/dL 0.2-1.2 (test irlt=497) SODIUM (BEAKER) (test 139 meq/L 136-145 jcds=272) POTASSIUM (BEAKER) (test 4.7 meq/L 3.5-5.1 tnqi=939) CHLORIDE (BEAKER) (test 96 meq/L 98-107 vxoh=854) CO2 (BEAKER) (test 37 meq/L 22-29 iqzf=200) BLOOD UREA NITROGEN 12 mg/dL 7-21 (BEAKER) (test bemq=304) CREATININE (BEAKER) (test 0.54 mg/dL 0.57-1.25 sdha=517) GLUCOSE RANDOM (BEAKER) 172 mg/dL 70-105 (test wwhj=656) CALCIUM (BEAKER) (test 8.7 mg/dL 8.4-10.2 grrz=839) AST (SGOT) (BEAKER) (test 33 U/L 5-34 dzsx=636) ALT (SGPT) (BEAKER) (test 33 U/L 6-55 eoku=305) EGFR (BEAKER) (test 115 mL/min/1.73 sq ESTIMATED GFR IS NOT upaq=6507) m ACCURATE CREATININE CLEARANCE IN PREDICTING GLOMERULAR FILTRATION RATE. ESTIMATED GFR IS NOT APPLICABLE FOR DIALYSIS PATIENTS. CBC W/PLT COUNT & AUTO [id number] 05:32:00 Test Item Value Reference Range Comments WHITE BLOOD CELL COUNT (BEAKER) (test zlwp=634) 17.0 K/ L 3.5-10.5 RED BLOOD CELL COUNT (BEAKER) (test zqph=606) 3.42 M/ L 3.93-5.22 HEMOGLOBIN (BEAKER) (test kqgq=876) 9.4 GM/DL 11.2-15.7 HEMATOCRIT (BEAKER) (test rxsi=820) 32.0 % 34.1-44.9 MEAN CORPUSCULAR VOLUME (BEAKER) (test fqnu=203) 93.6 fL 79.4-94.8 MEAN CORPUSCULAR HEMOGLOBIN (BEAKER) (test 27.5 pg 25.6-32.2 qpsg=067) MEAN CORPUSCULAR HEMOGLOBIN CONC (BEAKER) (test 29.4 GM/DL 32.2-35.5 kqkk=620) RED CELL DISTRIBUTION WIDTH (BEAKER) (test 15.6 % 11.7-14.4 kxlo=365) PLATELET COUNT (BEAKER) (test zcbz=246) 169 K/CU MM 150-450 MEAN PLATELET VOLUME (BEAKER) (test wdia=211) 11.0 fL 9.4-12.3 NUCLEATED RED BLOOD CELLS (BEAKER) (test 0 /100 WBC 0-0 pyrc=350) NEUTROPHILS RELATIVE PERCENT (BEAKER) (test 91 % kqsx=256) LYMPHOCYTES RELATIVE PERCENT (BEAKER) (test 4 % qcpc=374) MONOCYTES RELATIVE PERCENT (BEAKER) (test 5 % wfnb=990) EOSINOPHILS RELATIVE PERCENT (BEAKER) (test 0 % feyi=455) BASOPHILS RELATIVE PERCENT (BEAKER) (test 0 % ucnx=458) NEUTROPHILS ABSOLUTE COUNT (BEAKER) (test 15.41 K/ L 1.56-6.13 euas=886) LYMPHOCYTES ABSOLUTE COUNT (BEAKER) (test 0.60 K/ L 1.18-3.74 foke=974) MONOCYTES ABSOLUTE COUNT (BEAKER) (test 0.78 K/ L 0.24-0.36 yjyx=190) EOSINOPHILS ABSOLUTE COUNT (BEAKER) (test 0.00 K/ L 0.04-0.36 uslq=066) BASOPHILS ABSOLUTE COUNT (BEAKER) (test 0.01 K/ L 0.01-0.08 fxfm=622) IMMATURE GRANULOCYTES-RELATIVE PERCENT (BEAKER) 1 % 0-1 (test cqea=3818) POCT-GLUCOSE [id number] 22:20:00 Test Item Value Reference Range Comments POC-GLUCOSE METER (BEAKER) 323 mg/dL 70-110 Notified GUS PRATT/TESTED AT [facility] (test qlbo=7912) [address] [facility] [address] BODY FLUID CELL COUNT WITH [id number] 21:00:00 Test Item Value Reference Range Comments APPEARANCE FLUID (BEAKER) (test qfjc=523) Slightly Cloudy Clear COLOR FLUID (BEAKER) (test qttq=010) Yellow Colorless, Straw RBC FLUID (BEAKER) (test hcky=208) 1000 /cu mm <=1 ADJUSTED WBC FLUID (BEAKER) (test 620 /cu mm <=5 qixl=3193) LINING CELLS (BEAKER) (test fpci=2627) 74 /cu mm <=1 NEUTROPHILS FLUID (BEAKER) (test eaxw=9059) 21 % LYMPHS FLUID (BEAKER) (test eiai=333) 30 % MONO/MACROPHAGE FLUID (BEAKER) (test 49 % evuf=956) EOSINOPHILS FLUID (BEAKER) (test zqyw=228) 0 % BASO FLUID (BEAKER) (test vaue=145) 0 % CONTAINER BODY FLUID (BEAKER) (test EDTA Tube miur=7531) POCT-GLUCOSE [id number] 20:51:00 Test Item Value Reference Range Comments POC-GLUCOSE METER (BEAKER) 343 mg/dL 70-110 Notified GUS PRATT/TESTED AT [facility] (test rifv=6759) [address] [facility] [address] RAD, CHEST, 1 VIEW, NON [id number] 20:12:00Reason for exam:->right pleural effusion s/p thoracentesis Should this be performed at the bedside?-> YesFINAL REPORT History: Status post right thoracentesis. Comparison: 02/04/2017 Findings: A single view of the chest is submitted. The examination is limited by low lung volumes. There is no evidence of post thoracentesis pneumothorax. A right pleural effusion has decreased in size. The cardiac silhouette is within normal limits for size. The aorta is elongated. There is central pulmonary vascular congestion. Bilateral pulmonary opacities may reflect accommodation of atelectasis and edema but pneumonitis should be excluded clinically. There is no acute bony abnormality. Cervical fusion hardware is in place. Signed: Jalen Simms MDReport Verified Date/Time: 02/07/2017 20:12:46 Reading Location: [address] Reading Room LACTATE DEHYDROGENASE (LDH), BODY [id number] 19:12:00 Test Item Value Reference Range Comments LACTATE DEHYDROGENASE FLUID < U/L Light's criteria identifies (BEAKER) (test vlrz=486) effusions if one or more are pre Absence of reference range indicates that normals have not been defined.Assay performance has not been validated for this type of specimen.PROTEIN, BODY [id number] 19:12:00 Test Item Value Reference Range Comments PROTEIN FLUID (BEAKER) (test 1.8 g/dL Light's criteria identifies ftlb=721) effusions if one or more are pre Absence of reference range indicates that normals have not been defined.Assay performance has not been validated for this type of specimen.POCT-GLUCOSE [id number] 18:28:00 Test Item Value Reference Range Comments POC-GLUCOSE METER (BEAKER) 272 mg/dL 70-110 TESTED AT [address] (test gfwg=5956) [place] [address] U/S, [id number] 18:23:00Laterality?->RightReason for exam:-> Diagnostic and therapeutic thorcaentesisFINAL REPORT Procedure: Ultrasound-guided right thoracentesis, 02/07/2017 HISTORY: [...] was prepped and anesthetized and a 5 Burmese needle/catheter was inserted into the right pleural space. Four 25 cc of yellowish fluid were removed. A chest x-ray was ordered. CONCLUSION: Ultrasound-guided thoracentesis Signed: Dell Pacheco [facility] Verified Date/Time: 02/07/2017 18:23:13 Reading Location : [facility] [id number] Ultrasound Reading Room URINE [id number] 15:17:00 Test Item Value Reference Range Comments CULTURE (BEAKER) (test >100,000 col/mL Susan jkar=7637) glabrata LACTATE DEHYDROGENASE (LDH)2017-02-07 14:18:00 Test Item Value Reference Range Comments LACTATE DEHYDROGENASE (BEAKER) (test iuuj=354) 296 U/L 125-220 [id number] 11:54:00 Test Item Value Reference Range Comments PROTIME (BEAKER) (test ojzl=989) 13.4 seconds 11.7-14.7 INR (BEAKER) (test tmqm=537) 1.0 <=5.9 PARTIAL THROMBOPLASTIN TIME (BEAKER) (test 25.9 seconds 22.5-36.0 qlvo=614) RECOMMENDED COUMADIN/WARFARIN INR THERAPY RANGESSTANDARD DOSE: 2.0 - 3.0 Includes: PROPHYLAXIS forvenous thrombosis, systemic embolization; TREATMENT for venous thrombosis and/or pulmonary embolus.HIGH RISK: Target INR is 2.5-3.5 for patients with mechanical heart valves.[id number] 05:39:00 Test Item Value Reference Range Comments MAGNESIUM (BEAKER) (test ddes=527) 1.9 mg/dL 1.6-2.6 COMPREHENSIVE METABOLIC [id number] 05:39:00 Test Item Value Reference Range Comments TOTAL PROTEIN (BEAKER) 6.6 gm/dL 6.0-8.3 (test bxsy=043) ALBUMIN (BEAKER) (test 3.5 g/dL 3.5-5.0 oytd=4088) ALKALINE PHOSPHATASE 111 U/L 40-150 (BEAKER) (test wbex=215) BILIRUBIN TOTAL (BEAKER) < mg/dL 0.2-1.2 (test atwf=053) SODIUM (BEAKER) (test 137 meq/L 136-145 pvom=009) POTASSIUM (BEAKER) (test 3.8 meq/L 3.5-5.1 ultu=937) CHLORIDE (BEAKER) (test 99 meq/L 98-107 tzin=664) CO2 (BEAKER) (test 31 meq/L 22-29 vkpf=992) BLOOD UREA NITROGEN 11 mg/dL 7-21 (BEAKER) (test zyik=222) CREATININE (BEAKER) (test 0.61 mg/dL 0.57-1.25 adjb=075) GLUCOSE RANDOM (BEAKER) 221 mg/dL 70-105 (test lmos=924) CALCIUM (BEAKER) (test 8.5 mg/dL 8.4-10.2 ytnd=819) AST (SGOT) (BEAKER) (test 12 U/L 5-34 qqcu=761) ALT (SGPT) (BEAKER) (test 24 U/L 6-55 zifx=064) EGFR (BEAKER) (test 100 mL/min/1.73 sq ESTIMATED GFR IS NOT cnkc=2037) m ACCURATE CREATININE CLEARANCE IN PREDICTING GLOMERULAR FILTRATION RATE. ESTIMATED GFR IS NOT APPLICABLE FOR DIALYSIS PATIENTS. LIPID [id number] 05:39:00 Test Item Value Reference Range Comments TRIGLYCERIDES (BEAKER) (test phyg=550) 101 mg/dL CHOLESTEROL (BEAKER) (test tpib=746) 134 mg/dL HDL CHOLESTEROL (BEAKER) (test lkww=336) 52 mg/dL LDL CHOLESTEROL CALCULATED (BEAKER) (test 62 mg/dL miyv=423) Triglyceride Reference Range: Low Risk <150 Borderline 150- 199 High Risk 200-499 Very High Risk >=500Cholesterol Reference Range: Low Risk <200 Borderline 200-239 High Risk > 240HDL Cholesterol Reference Range: Low Risk >=60 High Risk <40LDL Cholesterol Reference Range: Optimal <100 Near Optimal 100-129 Borderline 130-159 High 160-189 Very High >=190CBC W/PLT COUNT & AUTO [id number] 04:29:00 Test Item Value Reference Range Comments WHITE BLOOD CELL COUNT (BEAKER) (test ouzq=342) 11.2 K/ L 3.5-10.5 RED BLOOD CELL COUNT (BEAKER) (test pwaq=984) 3.72 M/ L 3.93-5.22 HEMOGLOBIN (BEAKER) (test tles=257) 10.1 GM/DL 11.2-15.7 HEMATOCRIT (BEAKER) (test iyga=638) 33.8 % 34.1-44.9 MEAN CORPUSCULAR VOLUME (BEAKER) (test lwrr=304) 90.9 fL 79.4-94.8 MEAN CORPUSCULAR HEMOGLOBIN (BEAKER) (test 27.2 pg 25.6-32.2 xsry=738) MEAN CORPUSCULAR HEMOGLOBIN CONC (BEAKER) (test 29.9 GM/DL 32.2-35.5 bwuc=528) RED CELL DISTRIBUTION WIDTH (BEAKER) (test 15.7 % 11.7-14.4 dabf=691) PLATELET COUNT (BEAKER) (test qrkf=721) 238 K/CU MM 150-450 MEAN PLATELET VOLUME (BEAKER) (test lnba=379) 11.1 fL 9.4-12.3 NUCLEATED RED BLOOD CELLS (BEAKER) (test 0 /100 WBC 0-0 uunf=230) NEUTROPHILS RELATIVE PERCENT (BEAKER) (test 87 % ohtr=160) LYMPHOCYTES RELATIVE PERCENT (BEAKER) (test 6 % wkqz=785) MONOCYTES RELATIVE PERCENT (BEAKER) (test 5 % buwz=764) EOSINOPHILS RELATIVE PERCENT (BEAKER) (test 0 % plks=936) BASOPHILS RELATIVE PERCENT (BEAKER) (test 0 % boix=863) NEUTROPHILS ABSOLUTE COUNT (BEAKER) (test 9.80 K/ L 1.56-6.13 deau=555) LYMPHOCYTES ABSOLUTE COUNT (BEAKER) (test 0.72 K/ L 1.18-3.74 rmnz=704) MONOCYTES ABSOLUTE COUNT (BEAKER) (test 0.57 K/ L 0.24-0.36 niqf=154) EOSINOPHILS ABSOLUTE COUNT (BEAKER) (test 0.00 K/ L 0.04-0.36 ytoo=561) BASOPHILS ABSOLUTE COUNT (BEAKER) (test 0.00 K/ L 0.01-0.08 uarb=566) IMMATURE GRANULOCYTES-RELATIVE PERCENT (BEAKER) 1 % 0-1 (test prxi=4604) CT, CHEST, WITHOUT [id number] 23:24:00FINAL REPORT INDICATION: 62-year-old female with hypoxia. COMPARISON:Chest radiograph February 04, 2017 TECHNIQUE: Chest CT exam WITHOUT intravenous contrast. The exam was performed according to our department dose-optimization protocol, which includes automated exposure control, adjustments of mA and kV according to patient size. Iterative reconstructions are also sometimes employed. FINDINGS:There is a moderate low-density layering right pleural effusion with associated partial collapse of the right basilar segments. There is no pneumonia, pulmonary edema, or left pleural effusion. Central airways are clear. No mediastinal or hilar lymphadenopathy is demonstrated. Mildly patulous esophagus is noted. Thyroid gland unremarkable. There is mild enlargement of the left atrium.There is no coronary artery calcification and there is mild calcified plaque of the aortic arch. Main pulmonary artery and thoracic aorta are normal in caliber. No pericardial effusion. Partial imagingof the upper abdomen is notable for a IVC filter. Osseous structures are notable for scoliosis and several contiguous compression deformities of the thoracolumbar junction resulting in severe kyphosis.No suspicious osseous lesion demonstrated. IMPRESSION: Moderate right pleural effusion with partial collapse of the right basilar segments. No pneumonia, pulmonary edema, or left pleural effusion. Mildcardiomegaly. Scoliosis and severe kyphosis at the thoracolumbar junction. Signed: Jh Galicia MDReport Verified Date/Time: 02/06/2017 23: 24:50 Reading Location: [id number] Consult Reading Room TSH/FREE T4 IF [id number] 19:48:00 Test Item Value Reference Range Comments THYROID STIMULATING HORMONE (BEAKER) (test 0.47 uIU/mL 0.35-4.94 cbgt=828) RESPIRATORY PANEL [id number] 14:57:00 Test Item Value Reference Range Comments HUMAN METAPNEUMOVIRUS (BEAKER) (test Not detected Not detected, Inconclusive porj=8089) RHINOVIRUS (BEAKER) (test sset=2539) Not detected Not detected, Inconclusive INFLUENZA A (BEAKER) (test Not detected Not detected, Inconclusive unul=0439) INFLUENZA A SUBTYPE H1 (BEAKER) Not detected Not detected, Inconclusive (test tksx=8133) INFLUENZA A SUBTYPE H3 (BEAKER) Not detected Not detected, Inconclusive (test ykcb=9441) INFLUENZA A SUBTYPE H1-2009 (BEAKER) Not detected Not detected, Inconclusive (test wgqi=9964) INFLUENZA B (BEAKER) (test Not detected Not detected, Inconclusive jiby=7388) RESPIRATORY SYNCYTIAL VIRUS (BEAKER) Not detected Not detected, Inconclusive (test swzz=4441) PARAINFLUENZA VIRUS 1 (BEAKER) (test Not detected Not detected, Inconclusive jwwv=3001) PARAINFLUENZA VIRUS 2 (BEAKER) (test Not detected Not detected, Inconclusive xeha=9654) PARAINFLUENZA VIRUS 3 (BEAKER) (test Not detected Not detected, Inconclusive boql=6878) PARAINFLUENZA VIRUS 4 (BEAKER) (test Not detected Not detected, Inconclusive wjlv=9602) ADENOVIRUS (BEAKER) (test liqi=9215) Not detected Not detected, Inconclusive CORONAVIRUS 229E (BEAKER) (test Not detected Not detected, Inconclusive ydpx=1967) CORONAVIRUS HKU1 (BEAKER) (test Not detected Not detected, Inconclusive wpwn=5791) CORONAVIRUS NL63 (BEAKER) (test Not detected Not detected, Inconclusive wpsy=7174) CORONAVIRUS OC43 (BEAKER) (test Not detected Not detected, Inconclusive hgwe=9966) BORDETELLA PERTUSSIS (BEAKER) (test Not detected Not detected, Inconclusive oqtb=2478) CHLAMYDOPHILA PNEUMONIAE (BEAKER) Not detected Not detected, Inconclusive (test rehw=7127) MYCOPLASMA PNEUMONIAE (BEAKER) (test Not detected Not detected, Inconclusive pltk=3004) TROPONIN [id number] 13:31:00 Test Item Value Reference Range Comments TROPONIN I (BEAKER) (test tdst=527) 0.08 ng/mL 0.00-0.03 Troponin I (TnI) levels must be interpreted [...] failure, acidosis, acute neurological disease, and persistent tachyarrhythmia.VANCOMYCIN LEVEL, [id number] 09:30 :00 Test Item Value Reference Range Comments VANCOMYCIN TROUGH (BEAKER) (test glzq=135) 8.6 ug/mL 10.0-20.0 [id number] 07:03:00 Test Item Value Reference Range Comments MAGNESIUM (BEAKER) (test jnqz=381) 1.7 mg/dL 1.6-2.6 COMPREHENSIVE METABOLIC [id number] 07:03:00 Test Item Value Reference Range Comments TOTAL PROTEIN (BEAKER) 5.6 gm/dL 6.0-8.3 (test ejpc=532) ALBUMIN (BEAKER) (test 3.0 g/dL 3.5-5.0 cqmo=7940) ALKALINE PHOSPHATASE 106 U/L 40-150 (BEAKER) (test zxdw=266) BILIRUBIN TOTAL (BEAKER) < mg/dL 0.2-1.2 (test wabw=677) SODIUM (BEAKER) (test 136 meq/L 136-145 cuao=620) POTASSIUM (BEAKER) (test 3.8 meq/L 3.5-5.1 enhb=163) CHLORIDE (BEAKER) (test 96 meq/L 98-107 lnsc=260) CO2 (BEAKER) (test 33 meq/L 22-29 pfny=170) BLOOD UREA NITROGEN 13 mg/dL 7-21 (BEAKER) (test jidi=742) CREATININE (BEAKER) (test 0.56 mg/dL 0.57-1.25 fqle=229) GLUCOSE RANDOM (BEAKER) 250 mg/dL 70-105 (test yyxt=192) CALCIUM (BEAKER) (test 8.3 mg/dL 8.4-10.2 xewc=156) AST (SGOT) (BEAKER) (test 12 U/L 5-34 zbxf=719) ALT (SGPT) (BEAKER) (test 24 U/L 6-55 zwrq=951) EGFR (BEAKER) (test 110 mL/min/1.73 sq ESTIMATED GFR IS NOT bfsu=5772) m ACCURATE CREATININE CLEARANCE IN PREDICTING GLOMERULAR FILTRATION RATE. ESTIMATED GFR IS NOT APPLICABLE FOR DIALYSIS PATIENTS. TROPONIN [id number] 07:00:00 Test Item Value Reference Range Comments TROPONIN I (BEAKER) (test shot=030) 0.10 ng/mL 0.00-0.03 Troponin I (TnI) levels must be interpreted [...] failure, acidosis, acute neurological disease, and persistent tachyarrhythmia.TROPONIN [id number] 07:00:00 Test Item Value Reference Range Comments TROPONIN I (BEAKER) (test nczl=550) 0.09 ng/mL 0.00-0.03 Troponin I (TnI) levels must be interpreted [...] failure, acidosis, acute neurological disease, and persistent tachyarrhythmia.CBC W/PLT COUNT & AUTO [id number] 06:20:00 Test Item Value Reference Range Comments WHITE BLOOD CELL COUNT (BEAKER) (test kyke=242) 10.2 K/ L 3.5-10.5 RED BLOOD CELL COUNT (BEAKER) (test zewx=228) 3.35 M/ L 3.93-5.22 HEMOGLOBIN (BEAKER) (test tamc=814) 9.2 GM/DL 11.2-15.7 HEMATOCRIT (BEAKER) (test ejbj=679) 29.6 % 34.1-44.9 MEAN CORPUSCULAR VOLUME (BEAKER) (test skzm=968) 88.4 fL 79.4-94.8 MEAN CORPUSCULAR HEMOGLOBIN (BEAKER) (test 27.5 pg 25.6-32.2 hqlx=170) MEAN CORPUSCULAR HEMOGLOBIN CONC (BEAKER) (test 31.1 GM/DL 32.2-35.5 wwdi=327) RED CELL DISTRIBUTION WIDTH (BEAKER) (test 16.1 % 11.7-14.4 npiw=010) PLATELET COUNT (BEAKER) (test umot=601) 185 K/CU MM 150-450 MEAN PLATELET VOLUME (BEAKER) (test hzac=664) 11.0 fL 9.4-12.3 NUCLEATED RED BLOOD CELLS (BEAKER) (test 0 /100 WBC 0-0 vpnh=834) NEUTROPHILS RELATIVE PERCENT (BEAKER) (test 91 % omhg=930) LYMPHOCYTES RELATIVE PERCENT (BEAKER) (test 4 % sogf=204) MONOCYTES RELATIVE PERCENT (BEAKER) (test 4 % yabl=071) EOSINOPHILS RELATIVE PERCENT (BEAKER) (test 0 % xdzt=055) BASOPHILS RELATIVE PERCENT (BEAKER) (test 0 % ujjw=528) NEUTROPHILS ABSOLUTE COUNT (BEAKER) (test 9.34 K/ L 1.56-6.13 acjz=681) LYMPHOCYTES ABSOLUTE COUNT (BEAKER) (test 0.37 K/ L 1.18-3.74 glsm=707) MONOCYTES ABSOLUTE COUNT (BEAKER) (test 0.45 K/ L 0.24-0.36 tzhg=511) EOSINOPHILS ABSOLUTE COUNT (BEAKER) (test 0.00 K/ L 0.04-0.36 ewpy=493) BASOPHILS ABSOLUTE COUNT (BEAKER) (test 0.01 K/ L 0.01-0.08 awyc=132) IMMATURE GRANULOCYTES-RELATIVE PERCENT (BEAKER) 1 % 0-1 (test rdfh=4988) [id number] 13:17:00 Test Item Value Reference Range Comments PROCALCITONIN (BEAKER) (test atpb=4461) 0.26 ng/mL <0.05 SEPSIS RISK (ng/mL)Low: 0.05-0.50Intermediate: 0.51-2.00High: & gt;=2.01POCT-GLUCOSE [id number] 11:40:00 Test Item Value Reference Range Comments POC-GLUCOSE METER (BEAKER) 162 mg/dL 70-110 TESTED AT [address] (test ygpo=4023) [place] [id number] POCT-GLUCOSE [id number] 07:20:00 Test Item Value Reference Range Comments POC-GLUCOSE METER (BEAKER) 97 mg/dL 70-110 TESTED AT [address] (test twht=4077) [facility] [id number] CBC W/PLT COUNT & AUTO [id number] 06:11:00 Test Item Value Reference Range Comments WHITE BLOOD CELL COUNT (BEAKER) (test ggcg=581) 7.2 K/ L 3.5-10.5 RED BLOOD CELL COUNT (BEAKER) (test bhwg=602) 3.77 M/ L 3.93-5.22 HEMOGLOBIN (BEAKER) (test egob=042) 10.1 GM/DL 11.2-15.7 HEMATOCRIT (BEAKER) (test yrcl=439) 32.9 % 34.1-44.9 MEAN CORPUSCULAR VOLUME (BEAKER) (test dpek=231) 87.3 fL 79.4-94.8 MEAN CORPUSCULAR HEMOGLOBIN (BEAKER) (test 26.8 pg 25.6-32.2 fcwd=612) MEAN CORPUSCULAR HEMOGLOBIN CONC (BEAKER) (test 30.7 GM/DL 32.2-35.5 vokp=469) RED CELL DISTRIBUTION WIDTH (BEAKER) (test 16.2 % 11.7-14.4 ndac=819) PLATELET COUNT (BEAKER) (test chdx=426) 222 K/CU MM 150-450 MEAN PLATELET VOLUME (BEAKER) (test wfpa=637) 11.1 fL 9.4-12.3 NUCLEATED RED BLOOD CELLS (BEAKER) (test 0 /100 WBC 0-0 jglg=448) NEUTROPHILS RELATIVE PERCENT (BEAKER) (test 90 % hatq=826) LYMPHOCYTES RELATIVE PERCENT (BEAKER) (test 7 % gyzy=786) MONOCYTES RELATIVE PERCENT (BEAKER) (test 2 % aljo=548) EOSINOPHILS RELATIVE PERCENT (BEAKER) (test 0 % jvep=059) BASOPHILS RELATIVE PERCENT (BEAKER) (test 0 % itpi=082) NEUTROPHILS ABSOLUTE COUNT (BEAKER) (test 6.45 K/ L 1.56-6.13 fhjh=435) LYMPHOCYTES ABSOLUTE COUNT (BEAKER) (test 0.53 K/ L 1.18-3.74 vlaj=389) MONOCYTES ABSOLUTE COUNT (BEAKER) (test 0.16 K/ L 0.24-0.36 vljo=594) EOSINOPHILS ABSOLUTE COUNT (BEAKER) (test 0.00 K/ L 0.04-0.36 pcrs=679) BASOPHILS ABSOLUTE COUNT (BEAKER) (test 0.01 K/ L 0.01-0.08 tygm=277) IMMATURE GRANULOCYTES-RELATIVE PERCENT (BEAKER) 1 % 0-1 (test mojr=8602) [id number] 05:50:00 Test Item Value Reference Range Comments MAGNESIUM (BEAKER) (test xygh=328) 1.4 mg/dL 1.6-2.6 COMPREHENSIVE METABOLIC [id number] 05:50:00 Test Item Value Reference Range Comments TOTAL PROTEIN (BEAKER) 5.8 gm/dL 6.0-8.3 (test zvhe=655) ALBUMIN (BEAKER) (test 2.9 g/dL 3.5-5.0 ocft=8035) ALKALINE PHOSPHATASE 130 U/L 40-150 (BEAKER) (test usbz=354) BILIRUBIN TOTAL (BEAKER) 0.4 mg/dL 0.2-1.2 (test zjag=019) SODIUM (BEAKER) (test 138 meq/L 136-145 bcnq=994) POTASSIUM (BEAKER) (test 3.0 meq/L 3.5-5.1 frug=407) CHLORIDE (BEAKER) (test 93 meq/L 98-107 nhif=604) CO2 (BEAKER) (test 32 meq/L 22-29 wbrd=827) BLOOD UREA NITROGEN 19 mg/dL 7-21 (BEAKER) (test yswc=430) CREATININE (BEAKER) (test 0.63 mg/dL 0.57-1.25 luih=614) GLUCOSE RANDOM (BEAKER) 104 mg/dL 70-105 (test rfvo=873) CALCIUM (BEAKER) (test 8.3 mg/dL 8.4-10.2 lhrj=425) AST (SGOT) (BEAKER) (test 25 U/L 5-34 ukgz=091) ALT (SGPT) (BEAKER) (test 29 U/L 6-55 bwpa=698) EGFR (BEAKER) (test 96 mL/min/1.73 sq m ESTIMATED GFR IS NOT puae=6749) ACCURATE CREATININE CLEARANCE IN PREDICTING GLOMERULAR FILTRATION RATE. ESTIMATED GFR IS NOT APPLICABLE FOR DIALYSIS PATIENTS. BLOOD GAS, [id number] 05:06:00 Test Item Value Reference Range Comments PH ARTERIAL (BEAKER) (test qkbr=459) 7.48 7.35-7.45 PCO2 ARTERIAL (BEAKER) (test rrdr=180) 49 mmHg 35-45 PO2 ARTERIAL (BEAKER) (test rpmo=285) 77 mmHg 80-90 O2 SATURATION ARTERIAL (BEAKER) (test cadk=691) 96.0 % 96.0-97.0 HCO3 ARTERIAL (BEAKER) (test yjtv=143) 36 mmol/L 21-29 BASE EXCESS ARTERIAL (BEAKER) (test gpjy=695) 10.7 mmol/L -2.0-3.0 PATIENT TEMPERATURE (BEAKER) (test ymvi=2131) 37.0 C FIO2 (BEAKER) (test imub=8958) 24.0 % HEPATITIS C [id number] 01:28:00 Test Item Value Reference Range Comments HEPATITIS C ANTIBODY (BEAKER) (test yuse=012) Equivocal Nonreactive RAPID INFLUENZA A&B [id number] 22:53:00 Test Item Value Reference Range Comments RAPID INFLUENZA A AG (BEAKER) (test Negative Negative, Inconclusive osby=5711) RAPID INFLUENZA B AG (BEAKER) (test Negative Negative, Inconclusive nrvy=5581) URINALYSIS W/ [id number] 22:38:00 Test Item Value Reference Range Comments COLOR (BEAKER) (test lmrr=121) Yellow CLARITY (BEAKER) (test dtij=723) Clear SPECIFIC GRAVITY UA (BEAKER) (test vhep=506) 1.019 1.001-1.035 PH UA (BEAKER) (test dllg=935) 5.0 5.0-8.0 PROTEIN UA (BEAKER) (test zqmv=761) 10 mg/dL Negative GLUCOSE UA (BEAKER) (test qftc=715) Negative Negative KETONES UA (BEAKER) (test hwkt=438) 80 mg/dL Negative BILIRUBIN UA (BEAKER) (test fklc=588) Negative Negative BLOOD UA (BEAKER) (test qivw=292) Negative Negative NITRITE UA (BEAKER) (test anfd=422) Negative Negative LEUKOCYTE ESTERASE UA (BEAKER) (test uhvw=866) Small Negative UROBILINOGEN UA (BEAKER) (test scbi=682) 0.2 mg/dL 0.2-1.0 RBC UA (BEAKER) (test hwpu=515) 1 /HPF WBC UA (BEAKER) (test bqof=075) 9 /HPF BACTERIA (BEAKER) (test zvcy=890) Rare MUCUS (BEAKER) (test ilna=6061) Rare SQUAMOUS EPITHELIAL (BEAKER) (test qivk=417) 1 /HPF CASTS (BEAKER) (test uknf=8121) 2 /LPF CRYSTALS, URINE (BEAKER) (test bdsa=5453) Rare SOURCE(BEAKER) (test fssa=2705) Urine, [place] HEPATITIS B CORE ANTIBODY, [id number] 22:36:00 Test Item Value Reference Range Comments HEPATITIS B CORE TOTAL ANTIBODY (BEAKER) (test Nonreactive Nonreactive mapf=458) HIV-1 ANTIGEN WITH HIV-1/2 [id number] 22:36:00 Test Item Value Reference Range Comments HIV-1 ANTIGEN WITH HIV 1\T\2 ANTIBODY (2) Nonreactive Nonreactive (BEAKER) (test euik=3827) PROTHROMBIN [id number] 22:34:00 Test Item Value Reference Range Comments PROTIME (BEAKER) (test xitv=425) 14.3 seconds 11.7-14.7 INR (BEAKER) (test ckbd=115) 1.1 <=5.9 RECOMMENDED COUMADIN/WARFARIN INR THERAPY RANGESSTANDARD DOSE: 2.0 - 3.0 Includes: PROPHYLAXIS forvenous thrombosis, systemic embolization; TREATMENT for venous thrombosis and/or pulmonary embolus.HIGH RISK: Target INR is 2.5-3.5 for patients with mechanical heart valves.TROPONIN [id number] 22:24:00 Test Item Value Reference Range Comments TROPONIN I (BEAKER) (test yfes=107) 0.19 ng/mL 0.00-0.03 Troponin I (TnI) levels must be interpreted [...] failure, acidosis, acute neurological disease, and persistent tachyarrhythmia.B-TYPE NATRIURETIC FACTOR (BNP) 22:21:00 Test Item Value Reference Range Comments B-TYPE NATRIURETIC PEPTIDE (BEAKER) (test 364 pg/mL 0-100 adtb=336) [id number] 22:14:00 Test Item Value Reference Range Comments PHOSPHORUS (BEAKER) (test fskc=179) 3.4 mg/dL 2.3-4.7 [id number] 22:14:00 Test Item Value Reference Range Comments MAGNESIUM (BEAKER) (test angf=742) 1.7 mg/dL 1.6-2.6 COMPREHENSIVE METABOLIC [id number] 22:14:00 Test Item Value Reference Range Comments TOTAL PROTEIN (BEAKER) 5.5 gm/dL 6.0-8.3 (test qajt=025) ALBUMIN (BEAKER) (test 2.9 g/dL 3.5-5.0 jrsj=0814) ALKALINE PHOSPHATASE 134 U/L 40-150 (BEAKER) (test qrsc=458) BILIRUBIN TOTAL (BEAKER) 0.4 mg/dL 0.2-1.2 (test gsua=179) SODIUM (BEAKER) (test 138 meq/L 136-145 akkc=958) POTASSIUM (BEAKER) (test 3.6 meq/L 3.5-5.1 qvba=975) CHLORIDE (BEAKER) (test 97 meq/L 98-107 aoja=261) CO2 (BEAKER) (test 31 meq/L 22-29 xafn=595) BLOOD UREA NITROGEN 20 mg/dL 7-21 (BEAKER) (test wvlv=781) CREATININE (BEAKER) (test 0.58 mg/dL 0.57-1.25 rdst=382) GLUCOSE RANDOM (BEAKER) 75 mg/dL 70-105 (test pqfa=751) CALCIUM (BEAKER) (test 8.3 mg/dL 8.4-10.2 ctuy=609) AST (SGOT) (BEAKER) (test 31 U/L 5-34 bmhv=961) ALT (SGPT) (BEAKER) (test 30 U/L 6-55 xhbm=140) EGFR (BEAKER) (test 106 mL/min/1.73 sq ESTIMATED GFR IS NOT shov=9462) m ACCURATE CREATININE CLEARANCE IN PREDICTING GLOMERULAR FILTRATION RATE. ESTIMATED GFR IS NOT APPLICABLE FOR DIALYSIS PATIENTS. CBC W/PLT COUNT & AUTO [id number] 22:11:00 Test Item Value Reference Range Comments WHITE BLOOD CELL COUNT (BEAKER) (test zbuc=030) 6.6 K/ L 3.5-10.5 RED BLOOD CELL COUNT (BEAKER) (test tbqz=126) 3.51 M/ L 3.93-5.22 HEMOGLOBIN (BEAKER) (test wtbm=764) 9.7 GM/DL 11.2-15.7 HEMATOCRIT (BEAKER) (test vlpz=825) 31.6 % 34.1-44.9 MEAN CORPUSCULAR VOLUME (BEAKER) (test mcne=596) 90.0 fL 79.4-94.8 MEAN CORPUSCULAR HEMOGLOBIN (BEAKER) (test 27.6 pg 25.6-32.2 xqdc=350) MEAN CORPUSCULAR HEMOGLOBIN CONC (BEAKER) (test 30.7 GM/DL 32.2-35.5 shbs=976) RED CELL DISTRIBUTION WIDTH (BEAKER) (test 16.0 % 11.7-14.4 gaca=630) PLATELET COUNT (BEAKER) (test hbro=679) 197 K/CU MM 150-450 MEAN PLATELET VOLUME (BEAKER) (test kedp=852) 11.0 fL 9.4-12.3 NUCLEATED RED BLOOD CELLS (BEAKER) (test 0 /100 WBC 0-0 ijze=177) NEUTROPHILS RELATIVE PERCENT (BEAKER) (test 92 % puar=769) LYMPHOCYTES RELATIVE PERCENT (BEAKER) (test 6 % pmps=918) MONOCYTES RELATIVE PERCENT (BEAKER) (test 1 % ikth=806) EOSINOPHILS RELATIVE PERCENT (BEAKER) (test 0 % ecfk=088) BASOPHILS RELATIVE PERCENT (BEAKER) (test 0 % ipgp=079) NEUTROPHILS ABSOLUTE COUNT (BEAKER) (test 6.08 K/ L 1.56-6.13 opsx=897) LYMPHOCYTES ABSOLUTE COUNT (BEAKER) (test 0.40 K/ L 1.18-3.74 hpfj=924) MONOCYTES ABSOLUTE COUNT (BEAKER) (test 0.08 K/ L 0.24-0.36 zjhp=832) EOSINOPHILS ABSOLUTE COUNT (BEAKER) (test 0.00 K/ L 0.04-0.36 mhvb=884) BASOPHILS ABSOLUTE COUNT (BEAKER) (test 0.01 K/ L 0.01-0.08 wxfb=265) IMMATURE GRANULOCYTES-RELATIVE PERCENT (BEAKER) 1 % 0-1 (test ivwm=8528) BLOOD GAS, [id number] 20:15:00 Test Item Value Reference Range Comments PH ARTERIAL (BEAKER) (test rwqt=301) 7.40 7.35-7.45 PCO2 ARTERIAL (BEAKER) (test mkil=526) 58 mmHg 35-45 PO2 ARTERIAL (BEAKER) (test zkit=828) 89 mmHg 80-90 O2 SATURATION ARTERIAL (BEAKER) (test gjgg=598) 96.6 % 96.0-97.0 HCO3 ARTERIAL (BEAKER) (test gtch=159) 35 mmol/L 21-29 BASE EXCESS ARTERIAL (BEAKER) (test jobx=612) 8.7 mmol/L -2.0-3.0 PATIENT TEMPERATURE (BEAKER) (test yxzx=2392) 37.0 C FIO2 (BEAKER) (test psej=9608) 24.0 % RAD, CHEST, 1 VIEW, NON [id number] 19:30:00Post-intubationReason for exam:-& gt;transfer from OSH, intubated/respiratory failureShould this be performed at the bedside?->YesFINAL REPORT History: Intubated, respiratory failure, transferred from outside hospital. Comparison: 04/22/2010 Findings: A single view of the chest is submitted. No endotrachealtube is identified on the examination. The above given history suggests the patient has been intubated. Please correlate. The cardiac silhouette is within normal limits for size. There is central pulmonary vascular congestion and bilateral interstitial opacification is centered on the perihilar lungsand is consistent with pulmonary edema. A moderate right pleural effusion is present. Bibasilar pulmonary opacities may reflect a combination of atelectasis, effusion and edema but pneumonitis should be excluded clinically. There is no pneumothorax or acute bony abnormality. An IVC filter is in place. Hardware is noted in the cervical and lumbar spine. There are several chronic right rib fracture deformities. Signed: Jalen Simms MDReport Verified Date/Time: 02/04/2017 19: 30:53 Reading Location:[address] Reading Room
--- NOTE | 2017-07-09 16:13 | ER ---
Nurse's Notes [facility] Name: Alee Humphrey Age: 62 yrs Sex: Female : 1955 Arrival Date: 07/09/2017 Time: 14:04 Bed 23 Private MD: Carmen Ahuja Diagnosis: Unspecified systolic (congestive) heart failure Presentation: 07/09 14:24 Presenting complaint: Patient states: Bilateral lower leg pain and swelling x 5 days, hb worse today. Transition of care: patient was not received from another setting of care. Onset of symptoms is unknown. Initial Sepsis Screen: Does the patient meet any 2 criteria? No. Patient's initial sepsis screen is negative. Does the patient have a suspected source of infection? No. Patient's initial sepsis screen is negative. Care prior to arrival: None. 14:24 Method Of Arrival: Wheelchair hb 14:24 Acuity: FARHAT 3 hb Triage Assessment: 15:09 General: Appears in no apparent distress. slender, Behavior is calm, cooperative. Pain: rk2 Complains of pain in right leg. Neuro: Level of Consciousness is alert, obeys commands, Oriented to person, place, time, situation. Respiratory: Airway is patent Respiratory effort is even, unlabored, Respiratory pattern is regular, symmetrical, Breath sounds are clear in left posterior upper lobe, right posterior upper lobe and right posterior middle lobe Breath sounds are diminished in left posterior lower lobe and right posterior lower lobe. GI: No deficits noted. No signs and/or symptoms were reported involving the gastrointestinal system. Derm: Skin is pink, warm \T\ dry. Musculoskeletal: Mild swelling noted right foot. Historical: - Allergies: 14:26 Cephalexin Monohydrate; hb 14:26 cyclobenzaprine HCl (Vomiting); hb 14:26 Keflex (Vomiting); hb - Home Meds: 14:26 Albuterol Inhl for Chronic Obstructive Pulmonary Disease [Active]; baclofen 10 mg Oral hb tab 1 tab every 6 hrs PRN for pain [Active]; clonazepam 1 mg Oral tab at bedtime [Active]; collagenase clostridium histolyticum (bulk) miscellaneous [Active]; cyanocobalamin (vitamin B-12) Oral [Active]; zexicc-czrlfrli-funvehb Oral [Active]; methadone 10 mg Oral tab 4 times a day PRN for pain [Active]; tiotropium bromide inhalation [Active]; - PMHx: 14:26 Anxiety; CHF; chronic back pain; COPD; Depression; Pancreatitis; hb - Immunization history:: Adult Immunizations up to date. - Social history:: Smoking status: Patient uses tobacco products, smokes one-half pack cigarettes per day. Screenin:08 Abuse screen: Denies threats or abuse. Nutritional screening: No deficits noted. rk2 Tuberculosis screening: No symptoms or risk factors identified. Fall Risk None identified. Assessment: 16:02 General: Appears in no apparent distress. uncomfortable, slender, well groomed, well tl3 developed, well nourished, Behavior is calm, cooperative, appropriate for age. Pain: Complains of pain in right posterior lower lobe and left posterior lower lobe and right posterior middle lobe and right posterior upper lobe and left posterior upper lobe and right leg. Neuro: Level of Consciousness is awake, alert, obeys commands, Oriented to person, place, time, situation, Appropriate for age. Cardiovascular: Heart tones S1 S2 present Capillary refill is > 3 seconds in bilateral toes. Respiratory: Airway is patent Trachea midline Respiratory effort is even, unlabored, Respiratory pattern is regular, symmetrical, Breath sounds are clear bilaterally. GI: No signs and/or symptoms were reported involving the gastrointestinal system. : No signs and/or symptoms were reported regarding the genitourinary system. EENT: No signs and/or symptoms were reported regarding the EENT system. Derm: Skin is fragile, with poor turgor Skin is dusky, red, Skin temperature is warm to bilateral legs. Vital Signs: 14:23 BP 138 / 83; Pulse 91; Resp 20; Temp 99(TE); Pulse Ox 96% on R/A; Weight 40.37 kg; hb Height 5 ft. 5 in. (165.10 cm); Pain 6/10; 14:58 BP 126 / 86; Pulse 89; Resp 20; Temp 99; Pulse Ox 92% ; Pain 6/10; tt1 16:19 BP 102 / 67; Pulse 87; Resp 20; Pulse Ox 98% ; Pain 0/10; tt1 14:23 Body Mass Index 14.81 (40.37 kg, 165.10 cm) hb ED Course: 14:04 Patient arrived in ED. mr 14:04 Carmen Ahuja MD is Private Physician. mr 14:24 Triage completed. hb 14:26 Arm band placed on right wrist. hb 14:45 [facility] snw 14:45 Julio Cesar Arevalo MD is Attending Physician. snw 15:08 Patient has correct armband on for positive identification. Bed in low position. Call rk2 light in reach. Pulse ox on. 15:36 X-ray completed. Patient tolerated procedure well. jr1 15:36 Loly Marin, RN is Primary Nurse. tl3 15:37 Chest Pa And Lat (2 Views) XRAY In Process Unspecified. EDMS 15:37 Patient moved to radiology via wheelchair. tl3 16:02 No provider procedures requiring assistance completed. Patient did not have IV access tl3 during this emergency room visit. 16:12 Carmen Ahuja MD is Referral Physician. snw Administered Medications: 16:35 Drug: LaSIX 20 mg Route: PO; tl3 17:00 Follow up: Response: No adverse reaction; Medication administered at discharge. tl3 Outcome: 16:12 Discharge ordered by MD. snw 16:57 Discharged to home ambulatory. tl3 16:57 Condition: good 16:57 Discharge instructions given to patient, Instructed on discharge instructions, follow up and referral plans. medication usage, Demonstrated understanding of instructions, follow-up care, medications, Prescriptions given X 1. 16:58 Patient left the ED. tl3 Signatures: Dispatcher [employer] [facility] Crista Dixon FNP-C [employer]-Csn Bety Segura Jennifer jr1 Leydi Bhakta tt1 Caroline Schwarz RN RN Laura Burr RN RN rk2 Loly Marin, RN RN tl3
--- NOTE | 2017-07-09 16:13 | EDPHYS ---
Physician Documentation [facility] Name: Alee Humphrey Age: 62 yrs Sex: Female : 1955 Arrival Date: 07/09/2017 Time: 14:04 Bed 23 Private MD: Carmen Ahuja ED Physician Julio Cesar Arevalo HPI: 07/09 15:07 This 62 yrs old Female presents to ER via Wheelchair with complaints of Leg snw Swelling. 15:07 Pt states bilateral legs (right greater than left) have been swelling x 4 days. Feel snw tight today. Onset: The symptoms/episode began/occurred gradually, 4 day(s) ago, and became worse and became persistent. Severity of symptoms: At their worst the symptoms were moderate. The patient has not experienced similar symptoms in the past. It is unknown whether or not the patient has recently seen a physician. Historical: - Allergies: 14:26 Cephalexin Monohydrate; hb 14:26 cyclobenzaprine HCl (Vomiting); hb 14:26 Keflex (Vomiting); hb - Home Meds: 14:26 Albuterol Inhl for Chronic Obstructive Pulmonary Disease [Active]; baclofen 10 mg Oral hb tab 1 tab every 6 hrs PRN for pain [Active]; clonazepam 1 mg Oral tab at bedtime [Active]; collagenase clostridium histolyticum (bulk) miscellaneous [Active]; cyanocobalamin (vitamin B-12) Oral [Active]; smunnd-macbxopb-cybdota Oral [Active]; methadone 10 mg Oral tab 4 times a day PRN for pain [Active]; tiotropium bromide inhalation [Active]; - PMHx: 14:26 Anxiety; CHF; chronic back pain; COPD; Depression; Pancreatitis; hb - Immunization history:: Adult Immunizations up to date. - Social history:: Smoking status: Patient uses tobacco products, smokes one-half pack cigarettes per day. ROS: 15:07 Constitutional: Negative for fever, chills, and weight loss, Eyes: Negative for injury, snw pain, redness, and discharge, ENT: Negative for injury, pain, and discharge, Neck: Negative for injury, pain, and swelling, Cardiovascular: Negative for chest pain, palpitations, and edema, Respiratory: Negative for shortness of breath, cough, wheezing, and pleuritic chest pain, Abdomen/GI: Negative for abdominal pain, nausea, vomiting, diarrhea, and constipation, Back: Negative for injury and pain, : Negative for injury, bleeding, discharge, and swelling, MS/Extremity: Negative for injury and deformity, + bilateral leg swelling Skin: Negative for injury, rash, and discoloration, Neuro: Negative for headache, weakness, numbness, tingling, and seizure. Exam: 15:07 Head/Face: Normocephalic, atraumatic. Eyes: Pupils equal round and reactive to light, snw extra-ocular motions intact. Lids and lashes normal. Conjunctiva and sclera are non-icteric and not injected. Cornea within normal limits. Periorbital areas with no swelling, redness, or edema. ENT: Nares patent. No nasal discharge, no septal abnormalities noted. Tympanic membranes are normal and external auditory canals are clear. Oropharynx with no redness, swelling, or masses, exudates, or evidence of obstruction, uvula midline. Mucous membranes moist. Neck: Trachea midline, no thyromegaly or masses palpated, and no cervical lymphadenopathy. Supple, full range of motion without nuchal rigidity, or vertebral point tenderness. No Meningismus. Chest/axilla: Normal chest wall appearance and motion. Nontender with no deformity. No lesions are appreciated. Cardiovascular: Regular rate and rhythm with a normal S1 and S2. No gallops, murmurs, or rubs. Normal PMI, no JVD. No pulse deficits. Respiratory: Lungs have equal breath sounds bilaterally, clear to auscultation and percussion. No rales, rhonchi or wheezes noted. No increased work of breathing, no retractions or nasal flaring. Abdomen/GI: Soft, non-tender, with normal bowel sounds. No distension or tympany. No guarding or rebound. No evidence of tenderness throughout. Back: No spinal tenderness. No costovertebral tenderness. Full range of motion. 15:07 MS/ Extremity: Pulses equal, no cyanosis. Neurovascular intact. Full, normal range of motion. Neuro: Awake and alert, GCS 15, oriented to person, place, time, and situation. Cranial nerves II-XII grossly intact. Motor strength 5/5 in all extremities. Sensory grossly intact. Cerebellar exam normal. Normal gait. 15:07 Constitutional: The patient appears alert, awake. 15:07 Constitutional: The patient appears comfortable, well hydrated, Syndromic, possibly Arellano's type habitus 15:07 Skin: lower legs with sclerotic, tight skin. Vital Signs: 14:23 BP 138 / 83; Pulse 91; Resp 20; Temp 99(TE); Pulse Ox 96% on R/A; Weight 40.37 kg; hb Height 5 ft. 5 in. (165.10 cm); Pain 6/10; 14:58 BP 126 / 86; Pulse 89; Resp 20; Temp 99; Pulse Ox 92% ; Pain 6/10; tt1 16:19 BP 102 / 67; Pulse 87; Resp 20; Pulse Ox 98% ; Pain 0/10; tt1 14:23 Body Mass Index 14.81 (40.37 kg, 165.10 cm) hb MDM: 14:52 Patient medically screened. snw 16:14 Data reviewed: vital signs, EMS record. Data interpreted: Pulse oximetry: on room air snw is 92 %. Interpretation: acceptable. Counseling: I had a detailed discussion with the patient and/or guardian regarding: the historical points, exam findings, and any diagnostic results supporting the discharge/admit diagnosis, radiology results, the need for outpatient follow up, to return to the emergency department if symptoms worsen or persist or if there are any questions or concerns that arise at home. Special discussion: Based on the history and exam findings, there is no indication for further emergent testing or inpatient evaluation. I discussed with the patient/guardian the need to see the primary care provider for further evaluation of the symptoms. 07/09 14:53 Order name: Chest Pa And Lat (2 Views) XRAY; Complete Time: 16:38 snw Administered Medications: 16:35 Drug: LaSIX 20 mg Route: PO; tl3 17:00 Follow up: Response: No adverse reaction; Medication administered at discharge. tl3 Disposition: 07/10 12:45 Co-signature as Attending Physician, Julio Cesar Arevalo MD. Disposition: 07/09/17 16:12 Discharged to Home. Impression: Unspecified systolic (congestive) heart failure. - Condition is Stable. - Discharge Instructions: Heart Failure, Form - Daily Weight Record. - Prescriptions for Hydrochlorothiazide 12.5 mg Oral Tablet - take 1 tablet by ORAL route once daily; 30 tablet. - Medication Reconciliation Form, Thank You Letter, Antibiotic Education, Prescription Opioid Use form. - Follow up: Carmen Ahuja MD; When: Tomorrow; Reason: Recheck today's complaints, Continuance of care, Re-evaluation by your physician. Follow up: Emergency Department; When: As needed; Reason: Worsening of condition. Signatures: Dispatcher [employer] EDMS Crista Dixon, BAG PATCHER-C BAG PATCHER-Csnw Caroline Schwarz, RN RN Julio Cesar Arevalo MD MD Loly Marin RN RN tl3
[2017-07-09] MEDS ORDERED: FUROSEMIDE 20 MG TABLET ONE (16:32)
--- NOTE | 2017-07-09 16:34 | RAD REPORT ---
EXAM DESCRIPTION: RAD - Chest Pa And Lat (2 Views) - 07/09/2017 3:39 pm CLINICAL HISTORY: COPD, leg pain and swelling COMPARISON: March 2017 TECHNIQUE: PA and lateral views of the chest were obtained. FINDINGS: The lungs are fibrotic as a baseline. The fibrotic pattern is stable with no peripheral ma ss, consolidation or failure. Heart size is normal and central vasculature is within normal limits. No pleural effusion or pneumothorax seen. Extensive postsurgical changes are noted in the lumbar s pine. Patient has a very pronounced kyphosis at the thoracolumbar junction with diffuse osteopenia as well as a 50% wedge compression deformity. A lateral view from 2014 shows is to be a stable presenta tion. No aortic abnormality. IMPRESSION: Fibrotic lung change not substantially different from comparison. The above detailed findings are not substantially different from comparison study.
[2017-07-09 17:10] VITALS: TEMP 99
[2017-07-09 17:13] VITALS: BP 102/67; O2SAT 98
== END 2017-07-09 16:58 | disposition home or self-care (01) ==
LOC: ER 14:01
DX: I50.20 Unspecified systolic (congestive) heart failure (principal); J44.9 Chronic obstructive pulmonary disease, unspecified; F32.9 Major depressive disorder, single episode, unspecified; F17.210 Nicotine dependence, cigarettes, uncomplicated; Z88.1 Allergy status to other antibiotic agents; Z88.3 Allergy status to other anti-infective agents; Z88.8 Allergy status to other drugs, medicaments and biological substances
CPT/HCPCS: 71046; 99284

== ENCOUNTER 2017-09-05 22:00 | Emergency (ER) | payer OTHER ==
--- OUTSIDE RECORDS SUMMARY | 2017-09-05 22:03 | XMS REPORT | Clinical Summary ---
:1955 Author Organization [facility] Address [address] [place] [address] Phone Care Team Providers Name Role Phone [...] Problem Noted Date Acute hypercapnic respiratory failure ([facility]) 02/04/2017 Acute exacerbation of chronic obstructive pulmonary disease (COPD) ([facility]) 02/04 Acute diastolic CHF (congestive heart failure), NYHA class 4 ([facility]) 02/04/2017 Pleural effusion, right 02/04/2017 Community acquired pneumonia of right lower lobe of lung ([facility]) 02/04/2017 Severe protein-calorie malnutrition (Moe: less than 60% of standard 2016 weight) ([facility]) Encounters Date Type Specialty Care Team Description 02/04/2017 - Hospital Encounter Cardiology Minal [place] Acute diastolic CHF 02/17/2017 Stacey River MD (congestive heart AriSamuel rodríguez MD failure), NYHA class Bety Alarcon, 4 ([facility]);Acute MD exacerbation of chronic obstructive pulmonary disease (COPD) ([facility]);Acute hypercapnic respiratory failure ([facility]);Community acquired pneumonia of right lower lobe of lung ([facility]);Pleural effusion, right;Severe protein-calorie malnutrition (Moe: less than 60% of standard weight) ([facility]) 02/04/2017 Orders Only General Internal Medicine after 09/04/2016 Social History Tobacco Use Types Packs/Day Years Used Date Never Assessed Sex Assigned at Date Recorded Not on file Last Filed Vital Signs Vital Sign Reading Time Taken Blood Pressure 111/66 02/17/2017 8:30 PM SKIN FITTER Pulse 80 02/17/2017 8:59 PM SKIN FITTER Temperature 36.8 C (98.2 F) 02/17/2017 8:30 PM SKIN FITTER Respiratory Rate 20 02/17/2017 8:59 PM SKIN FITTER Oxygen Saturation 97% 02/17/2017 8:59 PM SKIN FITTER Inhaled Oxygen Concentration - - Weight 37.1 kg (81 lb 14.4 oz) 02/17/2017 12:00 PM SKIN FITTER Height 165.1 cm (5' 5") 02/04/2017 6:00 PM SKIN FITTER Body Mass Index 13.63 02/17/2017 12:00 PM SKIN FITTER Plan of Treatment Not on file Results RHYTHM STRIP - SCAN (03/03/2017 2:01 PM)Only the most recent of2 resultswithin the time period is included.POC-Glucose meter (02/17/2017 8:29 PM)Only the most recent of37 resultswithin the time period is included. Component Value Ref Range POC-Glucose Meter 175 (H)Comment: TESTED AT [address] 70 - 110 mg/[place] [address] Specimen Performing Laboratory Blood [facility] [address] [address] CBC with platelet count + automated diff [...] % Specimen Performing Laboratory Blood - Arm, [address] [address] CBC with platelet count + automated diff (02/17/2017 6:11 AM)Only the most recent of14 resultswithin the time period is included. Specimen Performing Laboratory Blood Narrative The following orders were created for panel order CBC with platelet count + automated diff. Procedure Abnormality Status --------- ------ CBC with platelet count ...[[id number]]AbnormalFinal result Please view results for these tests on the individual orders. Magnesium (02/17/2017 6:11 AM)Only the most recent of10 resultswithin the time period is included. Component Value Ref Range Magnesium 2.2 1.6 - 2.6 mg/dL Specimen Performing Laboratory Blood - Arm, [address] [address] Basic Metabolic Panel (02/17/2017 6:11 AM)Only the [...] PATIENTS. Specimen Performing Laboratory Blood - Arm, [address] [place] [address] ECG 12 lead (02/15/2017 12:09 PM)Only the most recent of3 resultswithin the time period is included. Specimen Performing Laboratory GE MUSE Narrative Ventricular Rate 91 BPM Atrial Rate 91 BPM P-R Interval 94 ms QRS Duration 86 ms Q-T Interval 348 ms QTC Calculation(Bazett) 428 ms P Wever 39 degrees R Wever 21 degrees T Wever 65 degrees Sinus rhythm with short AK Moderate voltage criteria for LVH, may be normal variant When compared with ECG of 04-FEB-2017 21:46, Amplitude of the T waves has increased Confirmed by Julieta FREEMAN, KEVYN ([id number]) on 02/16/2017 8:24:59 AM Procedure Note Interface, External Ris In - 02/16/2017 8:25 AM SKIN FITTER Ventricular Rate 91 BPM Atrial Rate 91 BPM P-R Interval 94 ms QRS Duration 86 ms Q-T Interval 348 ms QTC Calculation(Bazett) 428 ms P Wever 39 degrees R Wever 21 degrees T Wever 65 degrees Sinus rhythm with short AK Moderate voltage criteria for LVH, may be [...] Laboratory Blood, Arterial - Arm, Left [facility] [address] [address] XR chest 1 view portable / bedside [...] MD Report Verified Date/Time:02/11/2017 08:47:53 Reading [facility] Neuro Reading Room Procedure Note Interface, External Ris In - 02/11/2017 8:51 AM SKIN FITTER FINAL REPORT Chest one view INDICATION: Shortness [...] Report Verified Date/Time: 02/11/2017 08:47:53 Reading Location: [facility] Neuro Reading Room Sputum Culture + Gram Stain (02/10/2017 11:29 AM) Component Value Ref Range Result 4+ Normal respiratory paul present Gram Stain Result 2+ WBCs Gram Stain Result 0-5 epithelial cells Gram Stain Result 4+ gram negative rods Gram Stain Result 4+ gram positive cocci in clusters Gram Stain Result 1+ yeast with pseudohyphae Specimen Performing Laboratory Sputum - Expectorated [facility] [address] [address] Manual Differential (02/10/2017 10:22 AM) Component Value [...] RBC Morphology Normal Specimen Performing Laboratory Blood [address] [address] Lactic acid, venous, whole blood (02/10/2017 10:14 AM) Component Value Ref Range Lactate, Venous 1.8 0.5 - 2.2 mmol/L Specimen Performing Laboratory Blood - Arm, Left [address] [address] Narrative Effective 07/15/2015: Units/Reference Range Change New: 0.5-2.2 mmol/LPrevious: 5-20 mg/dL Hemoglobin A1c (02/08/2017 5:07 AM) Component Value Ref Range Hemoglobin A1C 5.8 4.3 - 6.1 % Specimen Performing Laboratory Blood [address] [address] Comprehensive metabolic panel (02/08/2017 5:07 AM)Only the [...] DIALYSIS PATIENTS. Specimen Performing Laboratory Blood [facility] [address] [place] [address] US thoracentesis (02/07/2017 5:40 PM) Specimen Performing [...] was prepped and anesthetized and a 5 Bermudian needle/catheter was inserted into the right pleural space. Four 25 cc of yellowish fluid were removed. A chest x-ray was ordered. CONCLUSION: Ultrasound-guided thoracentesis Signed: Dell Pacheco MD Report Verified Date/Time:02/07/2017 18:23:13 Reading Location: [address] Ultrasound Reading Room Procedure Note Interface, External Ris In - 02/07/2017 6:25 PM SKIN FITTER FINAL REPORT Procedure: Ultrasound-guided right thoracentesis, 02/07/2017 [...] was prepped and anesthetized and a 5 Bermudian needle/catheter was inserted into the right pleural space. Four 25 cc of yellowish fluid were removed. A chest x-ray was ordered. CONCLUSION: Ultrasound-guided thoracentesis Signed: Dell Pacheco MD Report Verified Date/Time: 02/07/2017 18:23:13 Reading Location: [facility] B1 P006 Ultrasound Reading Room Body fluid culture + gram stain (02/07/2017 5:15 PM) Component Value Ref Range Result No growth Gram Stain Result <1+ WBCs Gram Stain Result No organisms seen Specimen Performing Laboratory Body Fluid - Pleural, [address] [address] Body fluid cell count with differential (02/07/2017 [...] Specimen Performing Laboratory Body Fluid - Pleural, [address] [address] Protein, body fluid (02/07/2017 5:15 PM) Component Value Ref Range Protein, Fluid 1.8 Light's criteria identifies effusions if one or more are present: Pleural to serum protein ratio of more than 0.5; Pleural to Serum LDH of more than 0.6; Pleural LDH of more than two third of upper serum reference limit g/dL Specimen Performing Laboratory Body Fluid - Pleural, [address] [address] Narrative Absence of reference range indicates that [...] Specimen Performing Laboratory Body Fluid - Pleural, [address] [address] Narrative Absence of reference range indicates that normals have not been defined. Assay performance has not been validated for this type of specimen. PT/aPTT (02/07/2017 11:22 AM) Component Value Ref Range Protime 13.4 11.7 - 14.7 seconds INR 1.0 <=5.9 PTT 25.9 22.5 - 36.0 seconds Specimen Performing Laboratory Blood - Arm, [address] [address] Narrative RECOMMENDED COUMADIN/WARFARIN INR THERAPY RANGES STANDARD DOSE: 2.0 - 3.0 Includes: PROPHYLAXIS for venous thrombosis, systemic embolization; TREATMENT for venous thrombosis and/or pulmonary embolus. HIGH RISK: Target INR is 2.5-3.5 for patients with mechanical heart valves. Lactate dehydrogenase (LDH) (02/07/2017 11:22 AM) Component Value Ref Range LDH 296 (H) 125 - 220 U/L Specimen Performing Laboratory Blood - Arm, [address] [address] Lipid panel (02/07/2017 3:22 AM) Component Value Ref Range Triglycerides 101 mg/dL Cholesterol 134 mg/dL HDL 52 mg/dL LDL Calculated 62 mg/dL Specimen Performing Laboratory Blood - Arm, [address] [address] Narrative Triglyceride Reference Range: Low Risk <150 [id number] High Risk 200-499 Very High Risk>=500 Cholesterol Reference Range: Low Risk <200 [id number] High Risk>240 HDL Cholesterol Reference Range: Low Risk >=60 High Risk <40 LDL Cholesterol Reference Range: Optimal<100 Near [id number] Kppyrffgmh094-099 Etge034-910 Very High >=190 CT chest without IV contrast (02/06/2017 10:03 PM) Specimen Performing Laboratory [place] Narrative FINAL REPORT INDICATION: 62-year-old female with [...] MD Report Verified Date/Time:02/06/2017 23:24:50 Reading Location: [address] Consult Reading Room Procedure Note Interface, External Ris In - 02/06/2017 11:27 PM SKIN FITTER FINAL REPORT INDICATION: 62-year-old female with hypoxia. [...] Report Verified Date/Time: 02/06/2017 23:24:50 Reading Location: [facility] B1 [id number] Consult Reading Room /Free T4 If Indicated (02/06/2017 6:44 PM) Component Value Ref Range TSH 0.47 0.35 - 4.94 uIU/mL Specimen Performing Laboratory Blood - Arm, [address] [address] Troponin I (02/06/2017 12:50 PM)Only the most recent of4 resultswithin the time period is included. Component Value Ref Range Troponin I 0.08 (H) 0.00 - 0.03 ng/mL Specimen [place] [address] Narrative Troponin I (TnI) levels must be [...] - 20.0 ug/mL Specimen Performing Laboratory Blood [address] [address] Hepatitis C PCR, Quantitative (02/06/2017 5:45 AM) Component Value Ref Range HCV PCR, Quantitative HCV RNA not detected HCV RNA not detected Specimen Performing Laboratory Blood - Arm, [address] [address] Narrative This test uses a Real-Time Polymerase Chain Reaction (RT-PCR) methodology and was performed using ANN Ampliprep/ANN TaqMan HCV test kit version 2.0 ( [employer] Reportable range for this assay is 15 - 100,000,000 IU per mL (1.18 - 8.00 Log IU/mL). This test uses a Real-Time Polymerase Chain Reaction (RT-PCR) methodology and was performed using ANN Ampliprep/ANN TaqMan HCV test kit version 2.0 ( [employer] Reportable range for this assay is 15 - 100,000,000 IU per mL (1.18 - 8.00 Log IU/mL). ECHOCARDIOGRAM REPORT - SCAN (02/05/2017 5:20 PM)2D Echo W/Doppler(CW/PW/Color ) (02/05/2017 10:40 AM) Component Value Ref Range Ejection Fraction Specimen Performing Laboratory [facility] ECHO HEARTLAB [facility] Narrative Transthoracic Echocardiography Report (TTE) Demographics Patient Name ALEE KOO Date of Study 02/05/2017 Cailin [id number] GenderFemale Visit Number [id number] Race Unknown [id number] Number 1051 Number Date of Birth1955 Referring Physician Age62 year(s) Transportation Security Officer Freddy Fowler [facility] AnalystIzomary Casper InterpretingPhysician SANTA Olivera Procedure [...] Left AtriumLA size is severely enlarged (>48 ml/m2) . 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 Component Value Ref Range Result No growth in 5 days Specimen Performing Laboratory Blood - Arm, [facility] [address] [place] [address] Venous doppler legs bilateral (02/04/2017 10:30 PM) Component Value Ref Range Ejection Fraction Specimen Performing Laboratory [facility] ECHO HE[facility]LAB [facility] Impressions Right Impression 1. There is no [...] Date of Study 02/04/2017 Age 62 Visit [id number] Gender Female Date of 01/30 Number [facility] Number 7104 Physician Aleta [place] Transportation Security Officer Kasandra Aden T InterpretingAdam Schmid Physician , [...] External Ris In - 02/05/2017 5:52 AM SKIN FITTER PV LAB - Lower Extremities DVT Study Demographics Patient Name ALEE KOO Date of Study 02/04/2017 Age 62 Visit Number [id number] Gender Female Date of 1955 Number Referring Sander Room Number 7104 Physician Aleta [place] Transportation Security Officer Kasandra Aden RVT Interpreting Adam Schmid, Physician , RPVI Procedure [...] Specimen Performing Laboratory Nasal - Nasopharyngeal Swab [address] [address] Respiratory Panel [facility] (02/04/2017 10:07 PM) Component Value Ref [...] Inconclusive Specimen Performing Laboratory Nasopharyngeal - Nasopharynx, [address] [address] HIV-1 Antigen with HIV-1/2 Antibody (02/04/2017 9:40 PM) Component Value Ref Range HIV-1 Antigen with HIV 1&2 Antibody Nonreactive Nonreactive Specimen Performing Laboratory Blood - Arm, [address] [address] Hepatitis C antibody (02/04/2017 9:40 PM) Component Value Ref Range Hepatitis C Ab Equivocal (A) Nonreactive Specimen Performing Laboratory Blood - Arm, [address] [address] Hepatitis B core antibody, total (02/04/2017 9:40 PM) Component Value Ref Range Hep B Core Total Ab Nonreactive Nonreactive Specimen Performing Laboratory Blood - Arm, [address] [address] Prothrombin time/INR (02/04/2017 9:33 PM) Component Value Ref Range Protime 14.3 11.7 - 14.7 seconds INR 1.1 <=5.9 Specimen Performing Laboratory Blood - Arm, [address] [address] Narrative RECOMMENDED COUMADIN/WARFARIN INR THERAPY RANGES STANDARD DOSE: 2.0 - 3.0 Includes: PROPHYLAXIS for venous thrombosis, systemic embolization; TREATMENT for venous thrombosis and/or pulmonary embolus. HIGH RISK: Target INR is 2.5-3.5 for patients with mechanical heart valves. Phosphorus (02/04/2017 9:33 PM) Component Value Ref Range Phosphorus 3.4 2.3 - 4.7 mg/dL Specimen Performing Laboratory Blood - Arm, [address] [address] B-type Natriuretic Factor (BNP) (02/04/2017 9:33 PM) Component Value Ref Range BNP 364 (H) 0 - 100 pg/mL Specimen Performing Laboratory Blood - Arm, [address] [address] Urine culture (02/04/2017 9:13 PM) Component Value Ref Range Result Result >100,000 col/mL Susan glabrata (A) Specimen Performing Laboratory Urine - Urine, [address] [address] Urinalysis w/Microscopic (02/04/2017 9:12 PM) Component Value Ref Range Color, UA Yellow Clarity, UA Clear Specific [place], UA 1.019 1.001 - 1.035 pH, UA [...] Solorio Specimen Performing Laboratory Urine - Urine, [address] [address] after 09/04/2016
--- OUTSIDE RECORDS SUMMARY | 2017-09-05 22:04 | XMS REPORT ---
:1955 [facility] Wiliam Gotti [address] [place] [id number] Care Team Providers Name Role Phone LYNN ROSALESVannaLISA HUYNH Unavailable Unavailable Problems This patient has no known problems. Allergies, Adverse Reactions, Alerts This patient has no known allergies or adverse reactions. Medications This patient has no known medications. Results Test Description Test Time Test Comments Text Results Atomic Results Result Comments POCT-GLUCOSE METER 2017-02-17 20:48:00 Test Item Value Reference Range Comments POC-GLUCOSE METER (BEAKER) (test 175 mg/dL 70-110 TESTED AT [facility] [address] [place] [address] sjmb=5003) [facility] [address] POCT-GLUCOSE [id number] 08:27:00 Test Item Value Reference Range Comments POC-GLUCOSE METER (BEAKER) 83 mg/dL 70-110 TESTED AT [address] (test fgpi=8281) [facility] [address] CBC W/PLT COUNT & AUTO [id number] 07:16:00 Test Item Value Reference Range Comments WHITE BLOOD CELL COUNT (BEAKER) (test rcvo=805) 17.1 K/ L 3.5-10.5 RED BLOOD CELL COUNT (BEAKER) (test embh=673) 3.96 M/ L 3.93-5.22 HEMOGLOBIN (BEAKER) (test xpky=469) 10.7 GM/DL 11.2-15.7 HEMATOCRIT (BEAKER) (test nkwq=592) 34.8 % 34.1-44.9 MEAN CORPUSCULAR VOLUME (BEAKER) (test okaj=708) 87.9 fL 79.4-94.8 MEAN CORPUSCULAR HEMOGLOBIN (BEAKER) (test 27.0 pg 25.6-32.2 gzim=441) MEAN CORPUSCULAR HEMOGLOBIN CONC (BEAKER) (test 30.7 GM/DL 32.2-35.5 huhd=675) RED CELL DISTRIBUTION WIDTH (BEAKER) (test 15.6 % 11.7-14.4 sofa=922) PLATELET COUNT (BEAKER) (test idaj=741) 334 K/CU MM 150-450 MEAN PLATELET VOLUME (BEAKER) (test hbpa=364) 11.1 fL 9.4-12.3 NUCLEATED RED BLOOD CELLS (BEAKER) (test 0 /100 WBC 0-0 zzle=191) NEUTROPHILS RELATIVE PERCENT (BEAKER) (test 84 % taje=211) LYMPHOCYTES RELATIVE PERCENT (BEAKER) (test 8 % pkue=661) MONOCYTES RELATIVE PERCENT (BEAKER) (test 7 % dfjq=916) EOSINOPHILS RELATIVE PERCENT (BEAKER) (test 0 % fhny=057) BASOPHILS RELATIVE PERCENT (BEAKER) (test 0 % fjlq=720) NEUTROPHILS ABSOLUTE COUNT (BEAKER) (test 14.26 K/ L 1.56-6.13 eyhr=502) LYMPHOCYTES ABSOLUTE COUNT (BEAKER) (test 1.43 K/ L 1.18-3.74 hwxm=204) MONOCYTES ABSOLUTE COUNT (BEAKER) (test 1.10 K/ L 0.24-0.36 aqmh=865) EOSINOPHILS ABSOLUTE COUNT (BEAKER) (test 0.05 K/ L 0.04-0.36 vdnx=878) BASOPHILS ABSOLUTE COUNT (BEAKER) (test 0.01 K/ L 0.01-0.08 snpn=879) IMMATURE GRANULOCYTES-RELATIVE PERCENT (BEAKER) 1 % 0-1 (test zpxd=4251) [id number] 07:00:00 Test Item Value Reference Range Comments MAGNESIUM (BEAKER) (test samj=391) 2.2 mg/dL 1.6-2.6 BASIC METABOLIC [id number] 07:00:00 Test Item Value Reference Range Comments SODIUM (BEAKER) (test 133 meq/L 136-145 vysu=308) POTASSIUM (BEAKER) (test 4.3 meq/L 3.5-5.1 xpso=542) CHLORIDE (BEAKER) (test 91 meq/L 98-107 kfon=216) CO2 (BEAKER) (test 34 meq/L 22-29 aksu=811) BLOOD UREA NITROGEN 19 mg/dL 7-21 (BEAKER) (test rpsw=819) CREATININE (BEAKER) (test 0.61 mg/dL 0.57-1.25 bbpr=751) GLUCOSE RANDOM (BEAKER) 61 mg/dL 70-105 (test moim=797) CALCIUM (BEAKER) (test 8.9 mg/dL 8.4-10.2 rkqp=448) EGFR (BEAKER) (test 100 mL/min/1.73 sq m ESTIMATED GFR IS NOT sqdo=8902) ACCURATE CREATININE CLEARANCE IN PREDICTING GLOMERULAR FILTRATION RATE. ESTIMATED GFR IS NOT APPLICABLE FOR DIALYSIS PATIENTS. POCT-GLUCOSE [id number] 20:42:00 Test Item Value Reference Range Comments POC-GLUCOSE METER (BEAKER) 183 mg/dL 70-110 TESTED AT [address] (test cpdj=0109) [facility] [address] POCT-GLUCOSE [id number] 11:38:00 Test Item Value Reference Range Comments POC-GLUCOSE METER (BEAKER) 130 mg/dL 70-110 TESTED AT [address] (test oyoe=1839) [place] [id number] POCT-GLUCOSE [id number] 08:08:00 Test Item Value Reference Range Comments POC-GLUCOSE METER (BEAKER) 67 mg/dL 70-110 Will Repeat Test/TESTED AT (test wsjr=2940) [address] [address] [id number] 06:51:00 Test Item Value Reference Range Comments MAGNESIUM (BEAKER) (test ddyl=533) 2.0 mg/dL 1.6-2.6 BASIC METABOLIC [id number] 06:51:00 Test Item Value Reference Range Comments SODIUM (BEAKER) (test 134 meq/L 136-145 xukc=157) POTASSIUM (BEAKER) (test 4.4 meq/L 3.5-5.1 pvmk=321) CHLORIDE (BEAKER) (test 92 meq/L 98-107 cxjm=971) CO2 (BEAKER) (test 34 meq/L 22-29 ubyk=641) BLOOD UREA NITROGEN 17 mg/dL 7-21 (BEAKER) (test ofhs=820) CREATININE (BEAKER) (test 0.56 mg/dL 0.57-1.25 madr=321) GLUCOSE RANDOM (BEAKER) 66 mg/dL 70-105 (test nrlo=553) CALCIUM (BEAKER) (test 8.8 mg/dL 8.4-10.2 zhlu=535) EGFR (BEAKER) (test 110 mL/min/1.73 sq m ESTIMATED GFR IS NOT sgov=0224) ACCURATE CREATININE CLEARANCE IN PREDICTING GLOMERULAR FILTRATION RATE. ESTIMATED GFR IS NOT APPLICABLE FOR DIALYSIS PATIENTS. CBC W/PLT COUNT & AUTO [id number] 06:00:00 Test Item Value Reference Range Comments WHITE BLOOD CELL COUNT (BEAKER) (test xhbh=922) 17.0 K/ L 3.5-10.5 RED BLOOD CELL COUNT (BEAKER) (test ezpk=701) 4.16 M/ L 3.93-5.22 HEMOGLOBIN (BEAKER) (test rlwp=421) 11.1 GM/DL 11.2-15.7 HEMATOCRIT (BEAKER) (test gcym=333) 36.3 % 34.1-44.9 MEAN CORPUSCULAR VOLUME (BEAKER) (test tzlg=064) 87.3 fL 79.4-94.8 MEAN CORPUSCULAR HEMOGLOBIN (BEAKER) (test 26.7 pg 25.6-32.2 gknw=427) MEAN CORPUSCULAR HEMOGLOBIN CONC (BEAKER) (test 30.6 GM/DL 32.2-35.5 wzaf=481) RED CELL DISTRIBUTION WIDTH (BEAKER) (test 15.6 % 11.7-14.4 eazr=073) PLATELET COUNT (BEAKER) (test tlty=144) 293 K/CU MM 150-450 MEAN PLATELET VOLUME (BEAKER) (test wkst=048) 11.7 fL 9.4-12.3 NUCLEATED RED BLOOD CELLS (BEAKER) (test 0 /100 WBC 0-0 fvep=800) NEUTROPHILS RELATIVE PERCENT (BEAKER) (test 81 % nwye=950) LYMPHOCYTES RELATIVE PERCENT (BEAKER) (test 9 % jhoo=879) MONOCYTES RELATIVE PERCENT (BEAKER) (test 8 % zssq=597) EOSINOPHILS RELATIVE PERCENT (BEAKER) (test 1 % jmph=441) BASOPHILS RELATIVE PERCENT (BEAKER) (test 0 % ypat=265) NEUTROPHILS ABSOLUTE COUNT (BEAKER) (test 13.77 K/ L 1.56-6.13 dsnr=997) LYMPHOCYTES ABSOLUTE COUNT (BEAKER) (test 1.51 K/ L 1.18-3.74 uans=388) MONOCYTES ABSOLUTE COUNT (BEAKER) (test 1.35 K/ L 0.24-0.36 dpee=154) EOSINOPHILS ABSOLUTE COUNT (BEAKER) (test 0.08 K/ L 0.04-0.36 svbu=042) BASOPHILS ABSOLUTE COUNT (BEAKER) (test 0.04 K/ L 0.01-0.08 hopm=721) IMMATURE GRANULOCYTES-RELATIVE PERCENT (BEAKER) 1 % 0-1 (test wrnd=4976) POCT-GLUCOSE [id number] 21:21:00 Test Item Value Reference Range Comments POC-GLUCOSE METER (BEAKER) 177 mg/dL 70-110 TESTED AT [address] (test yals=7915) [facility] [address] POCT-GLUCOSE [id number] 17:52:00 Test Item Value Reference Range Comments POC-GLUCOSE METER (BEAKER) 191 mg/dL 70-110 TESTED AT [address] (test yiyb=2588) [facility] [address] POCT-GLUCOSE [id number] 11:46:00 Test Item Value Reference Range Comments POC-GLUCOSE METER (BEAKER) 145 mg/dL 70-110 TESTED AT [address] (test cquy=8248) [facility] [address] POCT-GLUCOSE [id number] 07:59:00 Test Item Value Reference Range Comments POC-GLUCOSE METER (BEAKER) 89 mg/dL 70-110 TESTED AT [address] (test nwtm=3554) [facility] [address] [id number] 04:29:00 Test Item Value Reference Range Comments MAGNESIUM (BEAKER) (test jgxy=961) 2.1 mg/dL 1.6-2.6 BASIC METABOLIC [id number] 04:29:00 Test Item Value Reference Range Comments SODIUM (BEAKER) (test 134 meq/L 136-145 llgp=069) POTASSIUM (BEAKER) (test 4.7 meq/L 3.5-5.1 zine=093) CHLORIDE (BEAKER) (test 91 meq/L 98-107 ejcx=650) CO2 (BEAKER) (test 36 meq/L 22-29 ulfo=309) BLOOD UREA NITROGEN 14 mg/dL 7-21 (BEAKER) (test zxse=686) CREATININE (BEAKER) (test 0.56 mg/dL 0.57-1.25 fvaj=414) GLUCOSE RANDOM (BEAKER) 138 mg/dL 70-105 (test ewtg=779) CALCIUM (BEAKER) (test 8.3 mg/dL 8.4-10.2 jhxd=022) EGFR (BEAKER) (test 110 mL/min/1.73 sq m ESTIMATED GFR IS NOT fgeq=5719) ACCURATE CREATININE CLEARANCE IN PREDICTING GLOMERULAR FILTRATION RATE. ESTIMATED GFR IS NOT APPLICABLE FOR DIALYSIS PATIENTS. CBC W/PLT COUNT & AUTO [id number] 04:18:00 Test Item Value Reference Range Comments WHITE BLOOD CELL COUNT (BEAKER) (test jryw=670) 14.1 K/ L 3.5-10.5 RED BLOOD CELL COUNT (BEAKER) (test yqzz=011) 4.06 M/ L 3.93-5.22 HEMOGLOBIN (BEAKER) (test fzuq=611) 11.1 GM/DL 11.2-15.7 HEMATOCRIT (BEAKER) (test hecm=166) 35.9 % 34.1-44.9 MEAN CORPUSCULAR VOLUME (BEAKER) (test qsli=243) 88.4 fL 79.4-94.8 MEAN CORPUSCULAR HEMOGLOBIN (BEAKER) (test 27.3 pg 25.6-32.2 sfma=674) MEAN CORPUSCULAR HEMOGLOBIN CONC (BEAKER) (test 30.9 GM/DL 32.2-35.5 ammn=921) RED CELL DISTRIBUTION WIDTH (BEAKER) (test 15.5 % 11.7-14.4 cqtn=136) PLATELET COUNT (BEAKER) (test ngti=825) 309 K/CU MM 150-450 MEAN PLATELET VOLUME (BEAKER) (test mswt=049) 10.7 fL 9.4-12.3 NUCLEATED RED BLOOD CELLS (BEAKER) (test 0 /100 WBC 0-0 cfgn=874) NEUTROPHILS RELATIVE PERCENT (BEAKER) (test 89 % rupj=991) LYMPHOCYTES RELATIVE PERCENT (BEAKER) (test 5 % iboc=964) MONOCYTES RELATIVE PERCENT (BEAKER) (test 5 % vooy=194) EOSINOPHILS RELATIVE PERCENT (BEAKER) (test 0 % kqpu=123) BASOPHILS RELATIVE PERCENT (BEAKER) (test 0 % qekj=224) NEUTROPHILS ABSOLUTE COUNT (BEAKER) (test 12.50 K/ L 1.56-6.13 avxk=159) LYMPHOCYTES ABSOLUTE COUNT (BEAKER) (test 0.68 K/ L 1.18-3.74 wksm=251) MONOCYTES ABSOLUTE COUNT (BEAKER) (test 0.74 K/ L 0.24-0.36 xtmq=875) EOSINOPHILS ABSOLUTE COUNT (BEAKER) (test 0.00 K/ L 0.04-0.36 bujg=228) BASOPHILS ABSOLUTE COUNT (BEAKER) (test 0.01 K/ L 0.01-0.08 ouvl=424) IMMATURE GRANULOCYTES-RELATIVE PERCENT (BEAKER) 1 % 0-1 (test yedp=4209) POCT-GLUCOSE [id number] 21:24:00 Test Item Value Reference Range Comments POC-GLUCOSE METER (BEAKER) 257 mg/dL 70-110 TESTED AT [address] (test uhji=5889) [place] [address] POCT-GLUCOSE [id number] 17:18:00 Test Item Value Reference Range Comments POC-GLUCOSE METER (BEAKER) 171 mg/dL 70-110 TESTED AT [address] (test qrli=9878) [place] [address] POCT-GLUCOSE [id number] 12:43:00 Test Item Value Reference Range Comments POC-GLUCOSE METER (BEAKER) 178 mg/dL 70-110 TESTED AT [address] (test lzei=1827) [place] [address] CBC W/PLT COUNT & AUTO [id number] 09:33:00 Test Item Value Reference Range Comments WHITE BLOOD CELL COUNT (BEAKER) (test dzzd=615) 15.2 K/ L 3.5-10.5 RED BLOOD CELL COUNT (BEAKER) (test fenr=398) 4.36 M/ L 3.93-5.22 HEMOGLOBIN (BEAKER) (test khcs=616) 11.8 GM/DL 11.2-15.7 HEMATOCRIT (BEAKER) (test eyxe=460) 37.6 % 34.1-44.9 MEAN CORPUSCULAR VOLUME (BEAKER) (test ieyn=268) 86.2 fL 79.4-94.8 MEAN CORPUSCULAR HEMOGLOBIN (BEAKER) (test 27.1 pg 25.6-32.2 hukj=276) MEAN CORPUSCULAR HEMOGLOBIN CONC (BEAKER) (test 31.4 GM/DL 32.2-35.5 afzu=327) RED CELL DISTRIBUTION WIDTH (BEAKER) (test 15.6 % 11.7-14.4 dxby=736) PLATELET COUNT (BEAKER) (test suhw=420) 289 K/CU MM 150-450 MEAN PLATELET VOLUME (BEAKER) (test btgl=120) 12.1 fL 9.4-12.3 NUCLEATED RED BLOOD CELLS (BEAKER) (test 0 /100 WBC 0-0 wycr=687) NEUTROPHILS RELATIVE PERCENT (BEAKER) (test 78 % etxk=393) LYMPHOCYTES RELATIVE PERCENT (BEAKER) (test 10 % ykmc=236) MONOCYTES RELATIVE PERCENT (BEAKER) (test 10 % kobb=294) EOSINOPHILS RELATIVE PERCENT (BEAKER) (test 1 % zsoc=573) BASOPHILS RELATIVE PERCENT (BEAKER) (test 0 % dstb=491) NEUTROPHILS ABSOLUTE COUNT (BEAKER) (test 11.75 K/ L 1.56-6.13 axtg=421) LYMPHOCYTES ABSOLUTE COUNT (BEAKER) (test 1.54 K/ L 1.18-3.74 zygb=165) MONOCYTES ABSOLUTE COUNT (BEAKER) (test 1.56 K/ L 0.24-0.36 speu=958) EOSINOPHILS ABSOLUTE COUNT (BEAKER) (test 0.08 K/ L 0.04-0.36 fwoc=896) BASOPHILS ABSOLUTE COUNT (BEAKER) (test 0.03 K/ L 0.01-0.08 rrix=567) IMMATURE GRANULOCYTES-RELATIVE PERCENT (BEAKER) 1 % 0-1 (test bxmx=5228) POCT-GLUCOSE [id number] 07:00:00 Test Item Value Reference Range Comments POC-GLUCOSE METER (BEAKER) 101 mg/dL 70-110 TESTED AT [facility] [address] [facility] (test tfqv=2374) [facility] [address] [id number] 05:09:00 Test Item Value Reference Range Comments MAGNESIUM (BEAKER) (test 2.3 mg/dL 1.6-2.6 Specimen slightly hemolyzed bdxn=946) BASIC METABOLIC [id number] 05:09:00 Test Item Value Reference Range Comments SODIUM (BEAKER) (test 134 meq/L 136-145 cmmj=958) POTASSIUM (BEAKER) (test 5.1 meq/L 3.5-5.1 Specimen slightly fzzp=805) hemolyzed CHLORIDE (BEAKER) (test 96 meq/L 98-107 gjzc=820) CO2 (BEAKER) (test 33 meq/L 22-29 wqph=870) BLOOD UREA NITROGEN 13 mg/dL 7-21 (BEAKER) (test lvtk=422) CREATININE (BEAKER) (test 0.48 mg/dL 0.57-1.25 Specimen slightly jxxr=700) hemolyzed GLUCOSE RANDOM (BEAKER) 73 mg/dL 70-105 (test uuvb=958) CALCIUM (BEAKER) (test 8.3 mg/dL 8.4-10.2 xyee=946) EGFR (BEAKER) (test 131 mL/min/1.73 sq m ESTIMATED GFR IS NOT npxe=6251) ACCURATE CREATININE CLEARANCE IN PREDICTING GLOMERULAR FILTRATION RATE. ESTIMATED GFR IS NOT APPLICABLE FOR DIALYSIS PATIENTS. POCT-GLUCOSE [id number] 21:25:00 Test Item Value Reference Range Comments POC-GLUCOSE METER (BEAKER) 334 mg/dL 70-110 Will Repeat Test/TESTED AT (test tmsb=3658) [address] [address] BLOOD GAS, [id number] 12:45:00 Test Item Value Reference Range Comments PH ARTERIAL (BEAKER) (test jxih=968) 7.47 7.35-7.45 PCO2 ARTERIAL (BEAKER) (test qtsu=301) 60 mmHg 35-45 PO2 ARTERIAL (BEAKER) (test pmhy=959) 79 mmHg 80-90 O2 SATURATION ARTERIAL (BEAKER) (test gtgt=693) 96.2 % 96.0-97.0 HCO3 ARTERIAL (BEAKER) (test wous=643) 42 mmol/L 21-29 BASE EXCESS ARTERIAL (BEAKER) (test hjfd=370) 15.6 mmol/L -2.0-3.0 PATIENT TEMPERATURE (BEAKER) (test aohr=4522) 36.7 C FIO2 (BEAKER) (test scpc=7935) 32.0 % POCT-GLUCOSE [id number] 11:48:00 Test Item Value Reference Range Comments POC-GLUCOSE METER (BEAKER) 140 mg/dL 70-110 TESTED AT [address] (test ixwy=9431) [facility] [address] BASIC METABOLIC [id number] 09:02:00 Test Item Value Reference Range Comments SODIUM (BEAKER) (test 135 meq/L 136-145 oqgs=763) POTASSIUM (BEAKER) (test 3.4 meq/L 3.5-5.1 jvqx=448) CHLORIDE (BEAKER) (test 89 meq/L 98-107 ezbg=815) CO2 (BEAKER) (test 43 meq/L 22-29 jzrm=749) BLOOD UREA NITROGEN 15 mg/dL 7-21 (BEAKER) (test sdif=536) CREATININE (BEAKER) (test 0.48 mg/dL 0.57-1.25 xzst=950) GLUCOSE RANDOM (BEAKER) 77 mg/dL 70-105 (test rnxh=485) CALCIUM (BEAKER) (test 8.1 mg/dL 8.4-10.2 pyhr=036) EGFR (BEAKER) (test 131 mL/min/1.73 sq m ESTIMATED GFR IS NOT ztos=5965) ACCURATE CREATININE CLEARANCE IN PREDICTING GLOMERULAR FILTRATION RATE. ESTIMATED GFR IS NOT APPLICABLE FOR DIALYSIS PATIENTS. POCT-GLUCOSE [id number] 06:50:00 Test Item Value Reference Range Comments POC-GLUCOSE METER (BEAKER) 92 mg/dL 70-110 TESTED AT [facility] [address] [facility] (test zjfz=0172) [facility] [address] CBC W/PLT COUNT & AUTO [id number] 04:12:00 Test Item Value Reference Range Comments WHITE BLOOD CELL COUNT (BEAKER) (test evui=780) 11.7 K/ L 3.5-10.5 RED BLOOD CELL COUNT (BEAKER) (test qgyp=324) 3.67 M/ L 3.93-5.22 HEMOGLOBIN (BEAKER) (test apdn=375) 9.9 GM/DL 11.2-15.7 HEMATOCRIT (BEAKER) (test jkre=718) 32.5 % 34.1-44.9 MEAN CORPUSCULAR VOLUME (BEAKER) (test eewg=571) 88.6 fL 79.4-94.8 MEAN CORPUSCULAR HEMOGLOBIN (BEAKER) (test 27.0 pg 25.6-32.2 vwvn=298) MEAN CORPUSCULAR HEMOGLOBIN CONC (BEAKER) (test 30.5 GM/DL 32.2-35.5 voti=092) RED CELL DISTRIBUTION WIDTH (BEAKER) (test 15.2 % 11.7-14.4 cksq=098) PLATELET COUNT (BEAKER) (test qaxb=562) 263 K/CU MM 150-450 MEAN PLATELET VOLUME (BEAKER) (test zxaj=533) 10.4 fL 9.4-12.3 NUCLEATED RED BLOOD CELLS (BEAKER) (test 0 /100 WBC 0-0 pwlr=633) NEUTROPHILS RELATIVE PERCENT (BEAKER) (test 78 % hgke=384) LYMPHOCYTES RELATIVE PERCENT (BEAKER) (test 11 % whib=598) MONOCYTES RELATIVE PERCENT (BEAKER) (test 10 % akeo=537) EOSINOPHILS RELATIVE PERCENT (BEAKER) (test 0 % cvih=310) BASOPHILS RELATIVE PERCENT (BEAKER) (test 0 % lvee=716) NEUTROPHILS ABSOLUTE COUNT (BEAKER) (test 9.19 K/ L 1.56-6.13 ggay=228) LYMPHOCYTES ABSOLUTE COUNT (BEAKER) (test 1.26 K/ L 1.18-3.74 zrmx=793) MONOCYTES ABSOLUTE COUNT (BEAKER) (test 1.15 K/ L 0.24-0.36 wqbd=179) EOSINOPHILS ABSOLUTE COUNT (BEAKER) (test 0.02 K/ L 0.04-0.36 dnok=517) BASOPHILS ABSOLUTE COUNT (BEAKER) (test 0.01 K/ L 0.01-0.08 zqlp=962) IMMATURE GRANULOCYTES-RELATIVE PERCENT (BEAKER) 1 % 0-1 (test hmry=8639) POCT-GLUCOSE [id number] 21:22:00 Test Item Value Reference Range Comments POC-GLUCOSE METER (BEAKER) 198 mg/dL 70-110 TESTED AT [address] (test wjhn=5219) [place] [address] POCT-GLUCOSE [id number] 16:57:00 Test Item Value Reference Range Comments POC-GLUCOSE METER (BEAKER) 297 mg/dL 70-110 TESTED AT [facility] [address] [facility] (test yyit=3978) [place] [id number] SPUTUM CULTURE + GRAM [id number] 13:17:00 Test Item Value Reference Range Comments CULTURE (BEAKER) (test 4+ Normal respiratory paul llvo=0214) present GRAM STAIN RESULT (BEAKER) 2+ WBCs (test kwnp=4949) GRAM STAIN RESULT (BEAKER) 0-5 epithelial cells (test bgxv=36210) GRAM STAIN RESULT (BEAKER) 4+ gram negative rods (test zhbb=41257) GRAM STAIN RESULT (BEAKER) 4+ gram positive cocci in (test zkrq=103754) clusters GRAM STAIN RESULT (BEAKER) 1+ yeast with pseudohyphae (test rxgy=537178) CBC W/PLT COUNT & AUTO [id number] 12:07:00 Test Item Value Reference Range Comments WHITE BLOOD CELL COUNT (BEAKER) (test ynmj=350) 16.8 K/ L 3.5-10.5 RED BLOOD CELL COUNT (BEAKER) (test oivz=837) 4.39 M/ L 3.93-5.22 HEMOGLOBIN (BEAKER) (test cosp=138) 12.0 GM/DL 11.2-15.7 HEMATOCRIT (BEAKER) (test nskk=684) 39.3 % 34.1-44.9 MEAN CORPUSCULAR VOLUME (BEAKER) (test ppdi=388) 89.5 fL 79.4-94.8 MEAN CORPUSCULAR HEMOGLOBIN (BEAKER) (test 27.3 pg 25.6-32.2 vmwp=073) MEAN CORPUSCULAR HEMOGLOBIN CONC (BEAKER) (test 30.5 GM/DL 32.2-35.5 nals=271) RED CELL DISTRIBUTION WIDTH (BEAKER) (test 15.3 % 11.7-14.4 szwa=496) PLATELET COUNT (BEAKER) (test hzlt=799) 312 K/CU MM 150-450 MEAN PLATELET VOLUME (BEAKER) (test fdez=943) 10.9 fL 9.4-12.3 NUCLEATED RED BLOOD CELLS (BEAKER) (test 0 /100 WBC 0-0 nssj=714) NEUTROPHILS RELATIVE PERCENT (BEAKER) (test 89 % ocak=878) LYMPHOCYTES RELATIVE PERCENT (BEAKER) (test 3 % qjdt=228) MONOCYTES RELATIVE PERCENT (BEAKER) (test 7 % xwcr=995) EOSINOPHILS RELATIVE PERCENT (BEAKER) (test 0 % mcvi=807) BASOPHILS RELATIVE PERCENT (BEAKER) (test 0 % hcqr=327) NEUTROPHILS ABSOLUTE COUNT (BEAKER) (test 15.01 K/ L 1.56-6.13 sklf=999) LYMPHOCYTES ABSOLUTE COUNT (BEAKER) (test 0.56 K/ L 1.18-3.74 ipat=134) MONOCYTES ABSOLUTE COUNT (BEAKER) (test 1.11 K/ L 0.24-0.36 ahpi=872) EOSINOPHILS ABSOLUTE COUNT (BEAKER) (test 0.00 K/ L 0.04-0.36 xxyl=240) BASOPHILS ABSOLUTE COUNT (BEAKER) (test 0.02 K/ L 0.01-0.08 oalr=972) IMMATURE GRANULOCYTES-RELATIVE PERCENT (BEAKER) 1 % 0-1 (test gtce=8243) POCT-GLUCOSE [id number] 11:54:00 Test Item Value Reference Range Comments POC-GLUCOSE METER (BEAKER) 179 mg/dL 70-110 TESTED AT [address] (test cbuf=8967) [place] [address] BASIC METABOLIC [id number] 04:52:00 Test Item Value Reference Range Comments SODIUM (BEAKER) (test 137 meq/L 136-145 zyqh=180) POTASSIUM (BEAKER) (test 3.8 meq/L 3.5-5.1 mngz=677) CHLORIDE (BEAKER) (test 93 meq/L 98-107 dthb=704) CO2 (BEAKER) (test 36 meq/L 22-29 ddzh=396) BLOOD UREA NITROGEN 17 mg/dL 7-21 (BEAKER) (test xrkn=298) CREATININE (BEAKER) (test 0.54 mg/dL 0.57-1.25 eagi=243) GLUCOSE RANDOM (BEAKER) 103 mg/dL 70-105 (test cyci=081) CALCIUM (BEAKER) (test 8.5 mg/dL 8.4-10.2 epsg=291) EGFR (BEAKER) (test 115 mL/min/1.73 sq m ESTIMATED GFR IS NOT cthy=6592) ACCURATE CREATININE CLEARANCE IN PREDICTING GLOMERULAR FILTRATION RATE. ESTIMATED GFR IS NOT APPLICABLE FOR DIALYSIS PATIENTS. POCT-GLUCOSE [id number] 21:10:00 Test Item Value Reference Range Comments POC-GLUCOSE METER (BEAKER) 289 mg/dL 70-110 TESTED AT [address] (test itry=4111) [place] [address] CBC W/PLT COUNT & AUTO [id number] 15:29:00 Test Item Value Reference Range Comments WHITE BLOOD CELL COUNT (BEAKER) (test shwe=232) 20.2 K/ L 3.5-10.5 RED BLOOD CELL COUNT (BEAKER) (test mpbi=461) 4.70 M/ L 3.93-5.22 HEMOGLOBIN (BEAKER) (test wbwd=320) 12.6 GM/DL 11.2-15.7 HEMATOCRIT (BEAKER) (test vamg=269) 43.3 % 34.1-44.9 MEAN CORPUSCULAR VOLUME (BEAKER) (test mauv=758) 92.1 fL 79.4-94.8 MEAN CORPUSCULAR HEMOGLOBIN (BEAKER) (test 26.8 pg 25.6-32.2 ynsr=427) MEAN CORPUSCULAR HEMOGLOBIN CONC (BEAKER) (test 29.1 GM/DL 32.2-35.5 bxyl=772) RED CELL DISTRIBUTION WIDTH (BEAKER) (test 15.2 % 11.7-14.4 litr=769) PLATELET COUNT (BEAKER) (test xumt=735) 301 K/CU MM 150-450 MEAN PLATELET VOLUME (BEAKER) (test dohq=065) 11.0 fL 9.4-12.3 NUCLEATED RED BLOOD CELLS (BEAKER) (test 0 /100 WBC 0-0 vygd=796) NEUTROPHILS RELATIVE PERCENT (BEAKER) (test 95 % flet=429) LYMPHOCYTES RELATIVE PERCENT (BEAKER) (test 2 % hbsq=499) MONOCYTES RELATIVE PERCENT (BEAKER) (test 2 % cavk=090) EOSINOPHILS RELATIVE PERCENT (BEAKER) (test 0 % ptrk=255) BASOPHILS RELATIVE PERCENT (BEAKER) (test 0 % ddhw=228) NEUTROPHILS ABSOLUTE COUNT (BEAKER) (test 19.18 K/ L 1.56-6.13 tjne=323) LYMPHOCYTES ABSOLUTE COUNT (BEAKER) (test 0.40 K/ L 1.18-3.74 cinn=391) MONOCYTES ABSOLUTE COUNT (BEAKER) (test 0.37 K/ L 0.24-0.36 rwlp=410) EOSINOPHILS ABSOLUTE COUNT (BEAKER) (test 0.00 K/ L 0.04-0.36 mqhv=000) BASOPHILS ABSOLUTE COUNT (BEAKER) (test 0.04 K/ L 0.01-0.08 rhoq=558) IMMATURE GRANULOCYTES-RELATIVE PERCENT (BEAKER) 1 % 0-1 (test fywg=3006) POCT-GLUCOSE [id number] 13:19:00 Test Item Value Reference Range Comments POC-GLUCOSE METER (BEAKER) 198 mg/dL 70-110 TESTED AT [facility] [address] (test jhsp=2750) [facility] [address] BODY FLUID CULTURE + GRAM [id number] 11:22:00 Test Item Value Reference Range Comments CULTURE (BEAKER) (test qkla=7211) No growth GRAM STAIN RESULT (BEAKER) (test <1+ WBCs ahnm=1326) GRAM STAIN RESULT (BEAKER) (test No organisms seen nhat=11182) RAD, CHEST, 1 VIEW, NON [id number] 08:47:00Reason for exam:->sobShould this be performed at [...] MDReport Verified Date/Time: 02/11/2017 08:47:53 Reading Location: [address] Neuro Reading Room BASIC METABOLIC [id number] 07:36:00 Test Item Value Reference Range Comments SODIUM (BEAKER) (test 138 meq/L 136-145 xnzl=313) POTASSIUM (BEAKER) (test 3.7 meq/L 3.5-5.1 jxcd=701) CHLORIDE (BEAKER) (test 96 meq/L 98-107 htvu=026) CO2 (BEAKER) (test 33 meq/L 22-29 kgip=390) BLOOD UREA NITROGEN 18 mg/dL 7-21 (BEAKER) (test xjdl=367) CREATININE (BEAKER) (test 0.61 mg/dL 0.57-1.25 klkb=134) GLUCOSE RANDOM (BEAKER) 247 mg/dL 70-105 (test qymz=247) CALCIUM (BEAKER) (test 8.4 mg/dL 8.4-10.2 fkrj=733) EGFR (BEAKER) (test 100 mL/min/1.73 sq m ESTIMATED GFR IS NOT ddcr=1954) ACCURATE CREATININE CLEARANCE IN PREDICTING GLOMERULAR FILTRATION RATE. ESTIMATED GFR IS NOT APPLICABLE FOR DIALYSIS PATIENTS. POCT-GLUCOSE [id number] 22:00:00 Test Item Value Reference Range Comments POC-GLUCOSE METER (BEAKER) 366 mg/dL 70-110 Will Repeat Test/TESTED AT (test nxyi=2299) [facility] [address] [facility] [id number] (MANUAL DIFFERENTIAL)2017-02-10 19:58:00 Test Item Value Reference Range Comments NEUTROPHILS - REL (DIFF) (BEAKER) (test 89 % aerq=1094) LYMPHOCYTES - REL (DIFF) (BEAKER) (test 2 % ntzg=1902) MONOCYTES - REL (DIFF) (BEAKER) (test vwqp=8914) 6 % BANDS - REL (DIFF) (BEAKER) (test mvmm=3870) 3 % 0-10 NEUTROPHILS - ABS (DIFF) (BEAKER) (test 24.21 K/ L 1.80-8.00 hgqo=5463) LYMPHOCYTES - ABS (DIFF) (BEAKER) (test 0.54 K/ L 1.48-4.50 ymgb=6881) MONOCYTES - ABS (DIFF) (BEAKER) (test fexa=6281) 1.63 K/ L 0.00-1.30 BANDS-ABS (DIFF) (BEAKER) (test zqzf=2856) 0.8 K/ L 0.0-0.8 TOTAL COUNTED (BEAKER) (test wmex=3807) 100 BANDS + SEGMENTED NEUTROPHILS (BEAKER) (test 25.02 jeaz=1055) WBC MORPHOLOGY (BEAKER) (test lskt=774) Normal PLT MORPHOLOGY (BEAKER) (test yksz=496) Normal RBC MORPHOLOGY (BEAKER) (test rmpe=116) Normal CBC W/PLT COUNT & AUTO [id number] 19:57:00 Test Item Value Reference Range Comments WHITE BLOOD CELL COUNT (BEAKER) (test zmhn=337) 27.2 K/ L 3.5-10.5 RED BLOOD CELL COUNT (BEAKER) (test adgy=255) 4.46 M/ L 3.93-5.22 HEMOGLOBIN (BEAKER) (test dhmn=223) 12.1 GM/DL 11.2-15.7 HEMATOCRIT (BEAKER) (test hovq=896) 42.9 % 34.1-44.9 MEAN CORPUSCULAR VOLUME (BEAKER) (test occi=590) 96.2 fL 79.4-94.8 MEAN CORPUSCULAR HEMOGLOBIN (BEAKER) (test 27.1 pg 25.6-32.2 kjvg=317) MEAN CORPUSCULAR HEMOGLOBIN CONC (BEAKER) (test 28.2 GM/DL 32.2-35.5 yefh=380) RED CELL DISTRIBUTION WIDTH (BEAKER) (test 15.6 % 11.7-14.4 gjec=181) PLATELET COUNT (BEAKER) (test anpn=312) 318 K/CU MM 150-450 MEAN PLATELET VOLUME (BEAKER) (test sqso=887) 11.0 fL 9.4-12.3 NUCLEATED RED BLOOD CELLS (BEAKER) (test 0 /100 WBC 0-0 fvbg=583) IMMATURE GRANULOCYTES-RELATIVE PERCENT (BEAKER) 1 % 0-1 (test fpoc=9208) POCT-GLUCOSE [id number] 17:32:00 Test Item Value Reference Range Comments POC-GLUCOSE METER (BEAKER) 213 mg/dL 70-110 TESTED AT [place] [id number] [facility] (test rvad=6870) [facility] [address] BLOOD GAS, [id number] 14:31:00 Test Item Value Reference Range Comments PH ARTERIAL (BEAKER) (test hrpa=417) 7.31 7.35-7.45 PCO2 ARTERIAL (BEAKER) (test eaye=263) 70 mmHg 35-45 PO2 ARTERIAL (BEAKER) (test fnob=881) 50 mmHg 80-90 O2 SATURATION ARTERIAL (BEAKER) (test vpbr=855) 78.5 % 96.0-97.0 HCO3 ARTERIAL (BEAKER) (test xndu=124) 34 mmol/L 21-29 BASE EXCESS ARTERIAL (BEAKER) (test yyni=345) 6.2 mmol/L -2.0-3.0 PATIENT TEMPERATURE (BEAKER) (test fkhp=5157) 37.5 C FIO2 (BEAKER) (test chps=3217) 21.0 % BLOOD GAS, [id number] 12:37:00 Test Item Value Reference Range Comments PH ARTERIAL (BEAKER) (test wqrm=675) 7.27 7.35-7.45 PCO2 ARTERIAL (BEAKER) (test pavw=687) 76 mmHg 35-45 PO2 ARTERIAL (BEAKER) (test hjxz=591) 123 mmHg 80-90 O2 SATURATION ARTERIAL (BEAKER) (test ssng=606) 97.7 % 96.0-97.0 HCO3 ARTERIAL (BEAKER) (test bhpo=575) 34 mmol/L 21-29 BASE EXCESS ARTERIAL (BEAKER) (test afsh=727) 5.2 mmol/L -2.0-3.0 PATIENT TEMPERATURE (BEAKER) (test uptp=0993) 37.5 C FIO2 (BEAKER) (test uewm=2674) 36.0 % LACTIC ACID, VENOUS, WHOLE [id number] 10:45:00 Test Item Value Reference Range Comments LACTATE BLOOD VENOUS (2) (BEAKER) (test 1.8 mmol/L 0.5-2.2 ohjk=8746) Effective 07/15/2015: Units/Reference Range ChangeNew: 0.5-2.2 mmol/L Previous: 5 -20 mg/dLBLOOD GAS, [id number] 10:40:00 Test Item Value Reference Range Comments PH ARTERIAL (BEAKER) (test wvyb=293) 7.19 7.35-7.45 PCO2 ARTERIAL (BEAKER) (test cvim=776) 93 mmHg 35-45 PO2 ARTERIAL (BEAKER) (test bvdb=231) 56 mmHg 80-90 O2 SATURATION ARTERIAL (BEAKER) (test viqx=845) 78.6 % 96.0-97.0 HCO3 ARTERIAL (BEAKER) (test oqjm=479) 34 mmol/L 21-29 BASE EXCESS ARTERIAL (BEAKER) (test gxmf=331) 3.8 mmol/L -2.0-3.0 PATIENT TEMPERATURE (BEAKER) (test qige=7822) 37.5 C FIO2 (BEAKER) (test tlfd=0545) 21.0 % BLOOD [id number] 10:00:00 Test Item Value Reference Range Comments CULTURE (BEAKER) (test ienf=5485) No growth in 5 days POCT-GLUCOSE [id number] 08:06:00 Test Item Value Reference Range Comments POC-GLUCOSE METER (BEAKER) 297 mg/dL 70-110 TESTED AT [address] (test uzzy=5001) [place] [id number] BASIC METABOLIC [id number] 05:28:00 Test Item Value Reference Range Comments SODIUM (BEAKER) (test 136 meq/L 136-145 dvkv=778) POTASSIUM (BEAKER) (test 4.4 meq/L 3.5-5.1 xxqj=430) CHLORIDE (BEAKER) (test 98 meq/L 98-107 wqit=376) CO2 (BEAKER) (test 30 meq/L 22-29 twtd=407) BLOOD UREA NITROGEN 23 mg/dL 7-21 (BEAKER) (test wnzh=706) CREATININE (BEAKER) (test 0.82 mg/dL 0.57-1.25 nemq=991) GLUCOSE RANDOM (BEAKER) 388 mg/dL 70-105 (test myjb=837) CALCIUM (BEAKER) (test 8.6 mg/dL 8.4-10.2 oxxm=281) EGFR (BEAKER) (test 71 mL/min/1.73 sq m ESTIMATED GFR IS NOT olcw=6250) ACCURATE CREATININE CLEARANCE IN PREDICTING GLOMERULAR FILTRATION RATE. ESTIMATED GFR IS NOT APPLICABLE FOR DIALYSIS PATIENTS. BLOOD [id number] 05:02:00 Test Item Value Reference Range Comments CULTURE (BEAKER) (test tcal=3041) No growth in 5 days POCT-GLUCOSE [id number] 21:15:00 Test Item Value Reference Range Comments POC-GLUCOSE METER (BEAKER) 174 mg/dL 70-110 TESTED AT [place] [id number] [facility] (test jbhk=5333) [place] [id number] POCT-GLUCOSE [id number] 18:38:00 Test Item Value Reference Range Comments POC-GLUCOSE METER (BEAKER) 202 mg/dL 70-110 TESTED AT [address] (test lqyy=8962) [facility] [address] RAD, CHEST, 1 VIEW, NON [id number] 15:27:00Reason for exam:->CoughShould this be performed at [...] Valdovinos MDReport Verified Date/Time:02/09/2017 15:27:55 Reading Location: [facility] Radiology Reading Room POCT-GLUCOSE [id number] 12:21:00 Test Item Value Reference Range Comments POC-GLUCOSE METER (BEAKER) 185 mg/dL 70-110 TESTED AT [facility] [address] [facility] (test evdz=7895) [facility] [address] POCT-GLUCOSE [id number] 07:52:00 Test Item Value Reference Range Comments POC-GLUCOSE METER (BEAKER) 176 mg/dL 70-110 TESTED AT [address] (test bcbm=7636) [place] [id number] BASIC METABOLIC [id number] 05:59:00 Test Item Value Reference Range Comments SODIUM (BEAKER) (test 137 meq/L 136-145 rubj=654) POTASSIUM (BEAKER) (test 4.4 meq/L 3.5-5.1 omxo=202) CHLORIDE (BEAKER) (test 93 meq/L 98-107 nlih=984) CO2 (BEAKER) (test 40 meq/L 22-29 xiit=158) BLOOD UREA NITROGEN 16 mg/dL 7-21 (BEAKER) (test amga=488) CREATININE (BEAKER) (test 0.50 mg/dL 0.57-1.25 zddf=538) GLUCOSE RANDOM (BEAKER) 181 mg/dL 70-105 (test qgci=116) CALCIUM (BEAKER) (test 8.1 mg/dL 8.4-10.2 cmcv=779) EGFR (BEAKER) (test 125 mL/min/1.73 sq m ESTIMATED GFR IS NOT hevw=0268) ACCURATE CREATININE CLEARANCE IN PREDICTING GLOMERULAR FILTRATION RATE. ESTIMATED GFR IS NOT APPLICABLE FOR DIALYSIS PATIENTS. [id number] 05:04:00 Test Item Value Reference Range Comments MAGNESIUM (BEAKER) (test ifqj=658) 2.1 mg/dL 1.6-2.6 CBC W/PLT COUNT & AUTO [id number] 04:50:00 Test Item Value Reference Range Comments WHITE BLOOD CELL COUNT (BEAKER) (test lmte=964) 10.6 K/ L 3.5-10.5 RED BLOOD CELL COUNT (BEAKER) (test ayaq=738) 3.44 M/ L 3.93-5.22 HEMOGLOBIN (BEAKER) (test pwti=551) 9.3 GM/DL 11.2-15.7 HEMATOCRIT (BEAKER) (test njpr=435) 31.9 % 34.1-44.9 MEAN CORPUSCULAR VOLUME (BEAKER) (test rffm=385) 92.7 fL 79.4-94.8 MEAN CORPUSCULAR HEMOGLOBIN (BEAKER) (test 27.0 pg 25.6-32.2 jvku=131) MEAN CORPUSCULAR HEMOGLOBIN CONC (BEAKER) (test 29.2 GM/DL 32.2-35.5 ngfj=841) RED CELL DISTRIBUTION WIDTH (BEAKER) (test 15.4 % 11.7-14.4 nitc=087) PLATELET COUNT (BEAKER) (test qfwg=130) 156 K/CU MM 150-450 MEAN PLATELET VOLUME (BEAKER) (test eqew=802) 12.0 fL 9.4-12.3 NUCLEATED RED BLOOD CELLS (BEAKER) (test 0 /100 WBC 0-0 gvjy=430) NEUTROPHILS RELATIVE PERCENT (BEAKER) (test 90 % sgxq=901) LYMPHOCYTES RELATIVE PERCENT (BEAKER) (test 5 % lwdp=107) MONOCYTES RELATIVE PERCENT (BEAKER) (test 4 % whau=735) EOSINOPHILS RELATIVE PERCENT (BEAKER) (test 0 % sico=758) BASOPHILS RELATIVE PERCENT (BEAKER) (test 0 % ecvi=137) NEUTROPHILS ABSOLUTE COUNT (BEAKER) (test 9.52 K/ L 1.56-6.13 zrqe=322) LYMPHOCYTES ABSOLUTE COUNT (BEAKER) (test 0.48 K/ L 1.18-3.74 yfvk=933) MONOCYTES ABSOLUTE COUNT (BEAKER) (test 0.46 K/ L 0.24-0.36 gies=776) EOSINOPHILS ABSOLUTE COUNT (BEAKER) (test 0.00 K/ L 0.04-0.36 sahw=726) BASOPHILS ABSOLUTE COUNT (BEAKER) (test 0.01 K/ L 0.01-0.08 buuy=569) IMMATURE GRANULOCYTES-RELATIVE PERCENT (BEAKER) 1 % 0-1 (test ymts=7412) POCT-GLUCOSE [id number] 20:33:00 Test Item Value Reference Range Comments POC-GLUCOSE METER (BEAKER) 200 mg/dL 70-110 TESTED AT [address] (test yany=1976) [place] [address] POCT-GLUCOSE [id number] 19:24:00 Test Item Value Reference Range Comments POC-GLUCOSE METER (BEAKER) 237 mg/dL 70-110 TESTED AT [address] (test ztkf=4185) [place] [address] POCT-GLUCOSE [id number] 11:09:00 Test Item Value Reference Range Comments POC-GLUCOSE METER (BEAKER) 301 mg/dL 70-110 TESTED AT [address] (test brtk=9702) [place] [address] HEMOGLOBIN [id number] 10:56:00 Test Item Value Reference Range Comments HEMOGLOBIN A1C (BEAKER) (test zuor=367) 5.8 % 4.3-6.1 POCT-GLUCOSE [id number] 07:55:00 Test Item Value Reference Range Comments POC-GLUCOSE METER (BEAKER) 216 mg/dL 70-110 TESTED AT [address] (test cuqs=4981) [place] [address] HEPATITIS C PCR, [id number] 05:55:00 Test Item Value Reference Range Comments HCV RESULT COMPONENT (BEAKER) HCV RNA not detected HCV RNA not detected (test yyho=4333) This test uses a Real-Time Polymerase Chain Reaction (RT-PCR) methodology and was performed using ANN Ampliprep/ANN TaqMan HCV test kit version 2.0 ( [employer]).Reportable range for this assay is 15 - 100,000, 000 IU per mL (1.18 - 8.00 Log IU/mL).This test uses a Real-Time Polymerase Chain Reaction (RT-PCR) methodology and was performed using ANN Ampliprep/ ANN TaqMan HCV test kit version 2.0 ([employer]) .Reportable range for this assay is 15 - 100,000,000 IU per mL (1.18 - 8.00 Log IU/mL).[id number] 05:50:00 Test Item Value Reference Range Comments MAGNESIUM (BEAKER) (test laoc=007) 2.0 mg/dL 1.6-2.6 COMPREHENSIVE METABOLIC [id number] 05:50:00 Test Item Value Reference Range Comments TOTAL PROTEIN (BEAKER) 6.0 gm/dL 6.0-8.3 (test ryeg=126) ALBUMIN (BEAKER) (test 3.2 g/dL 3.5-5.0 jiin=3979) ALKALINE PHOSPHATASE 97 U/L 40-150 (BEAKER) (test oatt=040) BILIRUBIN TOTAL (BEAKER) 0.3 mg/dL 0.2-1.2 (test qnar=778) SODIUM (BEAKER) (test 139 meq/L 136-145 qecb=752) POTASSIUM (BEAKER) (test 4.7 meq/L 3.5-5.1 enxs=285) CHLORIDE (BEAKER) (test 96 meq/L 98-107 dngd=631) CO2 (BEAKER) (test 37 meq/L 22-29 poap=361) BLOOD UREA NITROGEN 12 mg/dL 7-21 (BEAKER) (test slbf=032) CREATININE (BEAKER) (test 0.54 mg/dL 0.57-1.25 cnre=332) GLUCOSE RANDOM (BEAKER) 172 mg/dL 70-105 (test ogpe=826) CALCIUM (BEAKER) (test 8.7 mg/dL 8.4-10.2 nymo=795) AST (SGOT) (BEAKER) (test 33 U/L 5-34 ngot=720) ALT (SGPT) (BEAKER) (test 33 U/L 6-55 muto=218) EGFR (BEAKER) (test 115 mL/min/1.73 sq ESTIMATED GFR IS NOT vwys=7117) m ACCURATE CREATININE CLEARANCE IN PREDICTING GLOMERULAR FILTRATION RATE. ESTIMATED GFR IS NOT APPLICABLE FOR DIALYSIS PATIENTS. CBC W/PLT COUNT & AUTO [id number] 05:32:00 Test Item Value Reference Range Comments WHITE BLOOD CELL COUNT (BEAKER) (test sisb=363) 17.0 K/ L 3.5-10.5 RED BLOOD CELL COUNT (BEAKER) (test bicg=285) 3.42 M/ L 3.93-5.22 HEMOGLOBIN (BEAKER) (test vbya=927) 9.4 GM/DL 11.2-15.7 HEMATOCRIT (BEAKER) (test unns=668) 32.0 % 34.1-44.9 MEAN CORPUSCULAR VOLUME (BEAKER) (test asxt=823) 93.6 fL 79.4-94.8 MEAN CORPUSCULAR HEMOGLOBIN (BEAKER) (test 27.5 pg 25.6-32.2 uphs=255) MEAN CORPUSCULAR HEMOGLOBIN CONC (BEAKER) (test 29.4 GM/DL 32.2-35.5 tnhn=713) RED CELL DISTRIBUTION WIDTH (BEAKER) (test 15.6 % 11.7-14.4 cmdx=148) PLATELET COUNT (BEAKER) (test sfsl=843) 169 K/CU MM 150-450 MEAN PLATELET VOLUME (BEAKER) (test dcml=707) 11.0 fL 9.4-12.3 NUCLEATED RED BLOOD CELLS (BEAKER) (test 0 /100 WBC 0-0 djnt=142) NEUTROPHILS RELATIVE PERCENT (BEAKER) (test 91 % htle=657) LYMPHOCYTES RELATIVE PERCENT (BEAKER) (test 4 % yciv=403) MONOCYTES RELATIVE PERCENT (BEAKER) (test 5 % nrkx=701) EOSINOPHILS RELATIVE PERCENT (BEAKER) (test 0 % psbw=606) BASOPHILS RELATIVE PERCENT (BEAKER) (test 0 % cnes=711) NEUTROPHILS ABSOLUTE COUNT (BEAKER) (test 15.41 K/ L 1.56-6.13 cabz=412) LYMPHOCYTES ABSOLUTE COUNT (BEAKER) (test 0.60 K/ L 1.18-3.74 kqhq=201) MONOCYTES ABSOLUTE COUNT (BEAKER) (test 0.78 K/ L 0.24-0.36 tzea=697) EOSINOPHILS ABSOLUTE COUNT (BEAKER) (test 0.00 K/ L 0.04-0.36 ciba=277) BASOPHILS ABSOLUTE COUNT (BEAKER) (test 0.01 K/ L 0.01-0.08 hlcr=874) IMMATURE GRANULOCYTES-RELATIVE PERCENT (BEAKER) 1 % 0-1 (test nbgc=0921) POCT-GLUCOSE [id number] 22:20:00 Test Item Value Reference Range Comments POC-GLUCOSE METER (BEAKER) 323 mg/dL 70-110 Notified GUS PRATT/TESTED AT [facility] (test shrs=5566) [address] [facility] [address] BODY FLUID CELL COUNT WITH [id number] 21:00:00 Test Item Value Reference Range Comments APPEARANCE FLUID (BEAKER) (test hstj=808) Slightly Cloudy Clear COLOR FLUID (BEAKER) (test ykut=819) Yellow Colorless, Straw RBC FLUID (BEAKER) (test aaci=976) 1000 /cu mm <=1 ADJUSTED WBC FLUID (BEAKER) (test 620 /cu mm <=5 ueyp=0911) LINING CELLS (BEAKER) (test exlt=1338) 74 /cu mm <=1 NEUTROPHILS FLUID (BEAKER) (test xoon=2326) 21 % LYMPHS FLUID (BEAKER) (test yqjc=639) 30 % MONO/MACROPHAGE FLUID (BEAKER) (test 49 % gfmi=879) EOSINOPHILS FLUID (BEAKER) (test jcla=914) 0 % BASO FLUID (BEAKER) (test jvsk=879) 0 % CONTAINER BODY FLUID (BEAKER) (test EDTA Tube lejg=5010) POCT-GLUCOSE [id number] 20:51:00 Test Item Value Reference Range Comments POC-GLUCOSE METER (BEAKER) 343 mg/dL 70-110 Notified GUS PRATT/TESTED AT [facility] (test rfqq=5824) [address] [facility] [address] RAD, CHEST, 1 VIEW, NON [id number] 20:12:00Reason for exam:->right pleural effusion s/p thoracentesis [...] MDReport Verified Date/Time: 02/07/2017 20:12:46 Reading Location: [address] Reading Room LACTATE DEHYDROGENASE (LDH), BODY [id number] 19:12:00 Test Item Value Reference Range Comments LACTATE DEHYDROGENASE FLUID (BEAKER) < U/L Light's criteria identifies (test ajjs=211) effusions if one or more are pre Absence of reference range indicates that normals have not been defined.Assay performance has not been validated for this type of specimen.PROTEIN, BODY [id number] 19:12:00 Test Item Value Reference Range Comments PROTEIN FLUID (BEAKER) (test 1.8 g/dL Light's criteria identifies byfa=192) effusions if one or more are pre Absence of reference range indicates that normals have not been defined.Assay performance has not been validated for this type of specimen.POCT-GLUCOSE [id number] 18:28:00 Test Item Value Reference Range Comments POC-GLUCOSE METER (BEAKER) 272 mg/dL 70-110 TESTED AT [address] (test phqf=4093) [place] [address] U/S, [id number] 18:23:00Laterality?->RightReason for exam:-> Diagnostic and therapeutic thorcaentesisFINAL [...] was prepped and anesthetized and a 5 Czech needle/catheter was inserted into the right pleural space. Four 25 cc of yellowish fluid were removed. A chest x-ray was ordered. CONCLUSION: Ultrasound-guided thoracentesis Signed: Dell Pacheco MDRepcit[facility] Verified Date/Time: 02/07/2017 18:23:13 Reading Location : [facility] [id number] Ultrasound Reading Room URINE [id number] 15:17:00 Test Item Value Reference Range Comments CULTURE (BEAKER) (test >100,000 col/mL Susan glabrata fazn=1535) LACTATE DEHYDROGENASE (LDH)2017-02-07 14:18:00 Test Item Value Reference Range Comments LACTATE DEHYDROGENASE (BEAKER) (test adyc=737) 296 U/L 125-220 [id number] 11:54:00 Test Item Value Reference Range Comments PROTIME (BEAKER) (test bfzd=403) 13.4 seconds 11.7-14.7 INR (BEAKER) (test sieh=566) 1.0 <=5.9 PARTIAL THROMBOPLASTIN TIME (BEAKER) (test 25.9 seconds 22.5-36.0 sfxs=107) RECOMMENDED COUMADIN/WARFARIN INR THERAPY RANGESSTANDARD DOSE: 2.0 - 3.0 Includes: PROPHYLAXIS forvenous thrombosis, systemic embolization; TREATMENT for venous thrombosis and/or pulmonary embolus.HIGH RISK: Target INR is 2.5-3.5 for patients with mechanical heart valves.[id number] 05:39:00 Test Item Value Reference Range Comments MAGNESIUM (BEAKER) (test tpvq=546) 1.9 mg/dL 1.6-2.6 COMPREHENSIVE METABOLIC [id number] 05:39:00 Test Item Value Reference Range Comments TOTAL PROTEIN (BEAKER) 6.6 gm/dL 6.0-8.3 (test tlzl=898) ALBUMIN (BEAKER) (test 3.5 g/dL 3.5-5.0 dekl=2680) ALKALINE PHOSPHATASE 111 U/L 40-150 (BEAKER) (test hafm=182) BILIRUBIN TOTAL (BEAKER) < mg/dL 0.2-1.2 (test vxgv=243) SODIUM (BEAKER) (test 137 meq/L 136-145 ewvx=484) POTASSIUM (BEAKER) (test 3.8 meq/L 3.5-5.1 brhe=306) CHLORIDE (BEAKER) (test 99 meq/L 98-107 sbsa=851) CO2 (BEAKER) (test 31 meq/L 22-29 pkdx=445) BLOOD UREA NITROGEN 11 mg/dL 7-21 (BEAKER) (test knfc=131) CREATININE (BEAKER) (test 0.61 mg/dL 0.57-1.25 dosh=929) GLUCOSE RANDOM (BEAKER) 221 mg/dL 70-105 (test rnpn=134) CALCIUM (BEAKER) (test 8.5 mg/dL 8.4-10.2 qcor=760) AST (SGOT) (BEAKER) (test 12 U/L 5-34 gqhs=036) ALT (SGPT) (BEAKER) (test 24 U/L 6-55 meho=648) EGFR (BEAKER) (test 100 mL/min/1.73 sq ESTIMATED GFR IS NOT nhdx=9110) m ACCURATE CREATININE CLEARANCE IN PREDICTING GLOMERULAR FILTRATION RATE. ESTIMATED GFR IS NOT APPLICABLE FOR DIALYSIS PATIENTS. LIPID [id number] 05:39:00 Test Item Value Reference Range Comments TRIGLYCERIDES (BEAKER) (test oqcg=246) 101 mg/dL CHOLESTEROL (BEAKER) (test aola=533) 134 mg/dL HDL CHOLESTEROL (BEAKER) (test amaz=567) 52 mg/dL LDL CHOLESTEROL CALCULATED (BEAKER) (test 62 mg/dL iegt=928) Triglyceride Reference Range: Low Risk <150 Borderline 150- 199 High Risk 200-499 Very High Risk >=500Cholesterol Reference Range: Low Risk <200 Borderline 200-239 High Risk > 240HDL Cholesterol Reference Range: Low Risk >=60 High Risk <40LDL Cholesterol Reference Range: Optimal <100 Near Optimal 100-129 Borderline 130-159 High 160-189 Very High >=190CBC W/PLT COUNT & AUTO [id number] 04:29:00 Test Item Value Reference Range Comments WHITE BLOOD CELL COUNT (BEAKER) (test vhfx=497) 11.2 K/ L 3.5-10.5 RED BLOOD CELL COUNT (BEAKER) (test wljh=629) 3.72 M/ L 3.93-5.22 HEMOGLOBIN (BEAKER) (test wpuy=455) 10.1 GM/DL 11.2-15.7 HEMATOCRIT (BEAKER) (test jpdb=710) 33.8 % 34.1-44.9 MEAN CORPUSCULAR VOLUME (BEAKER) (test nolc=656) 90.9 fL 79.4-94.8 MEAN CORPUSCULAR HEMOGLOBIN (BEAKER) (test 27.2 pg 25.6-32.2 sdhg=526) MEAN CORPUSCULAR HEMOGLOBIN CONC (BEAKER) (test 29.9 GM/DL 32.2-35.5 eqyx=176) RED CELL DISTRIBUTION WIDTH (BEAKER) (test 15.7 % 11.7-14.4 jbqi=937) PLATELET COUNT (BEAKER) (test zdtx=500) 238 K/CU MM 150-450 MEAN PLATELET VOLUME (BEAKER) (test dkeo=633) 11.1 fL 9.4-12.3 NUCLEATED RED BLOOD CELLS (BEAKER) (test 0 /100 WBC 0-0 cqdx=345) NEUTROPHILS RELATIVE PERCENT (BEAKER) (test 87 % hhku=528) LYMPHOCYTES RELATIVE PERCENT (BEAKER) (test 6 % dogv=569) MONOCYTES RELATIVE PERCENT (BEAKER) (test 5 % hhuy=402) EOSINOPHILS RELATIVE PERCENT (BEAKER) (test 0 % tuxb=101) BASOPHILS RELATIVE PERCENT (BEAKER) (test 0 % iyfm=675) NEUTROPHILS ABSOLUTE COUNT (BEAKER) (test 9.80 K/ L 1.56-6.13 emtz=437) LYMPHOCYTES ABSOLUTE COUNT (BEAKER) (test 0.72 K/ L 1.18-3.74 klfe=118) MONOCYTES ABSOLUTE COUNT (BEAKER) (test 0.57 K/ L 0.24-0.36 wxot=648) EOSINOPHILS ABSOLUTE COUNT (BEAKER) (test 0.00 K/ L 0.04-0.36 epsz=808) BASOPHILS ABSOLUTE COUNT (BEAKER) (test 0.00 K/ L 0.01-0.08 osji=295) IMMATURE GRANULOCYTES-RELATIVE PERCENT (BEAKER) 1 % 0-1 (test ttik=2075) CT, CHEST, WITHOUT [id number] 23:24:00FINAL REPORT INDICATION: 62-year-old female with hypoxia. [...] Verified Date/Time: 02/06/2017 23: 24:50 Reading Location: [facility] C013 Consult Reading Room TSH/FREE T4 IF [id number] 19:48:00 Test Item Value Reference Range Comments THYROID STIMULATING HORMONE (BEAKER) (test 0.47 uIU/mL 0.35-4.94 wfyo=960) RESPIRATORY PANEL [id number] 14:57:00 Test Item Value Reference Range Comments HUMAN METAPNEUMOVIRUS (BEAKER) (test Not detected Not detected, Inconclusive dsyf=5989) RHINOVIRUS (BEAKER) (test wtwn=9335) Not detected Not detected, Inconclusive INFLUENZA A (BEAKER) (test Not detected Not detected, Inconclusive ugqp=2583) INFLUENZA A SUBTYPE H1 (BEAKER) Not detected Not detected, Inconclusive (test mfld=4814) INFLUENZA A SUBTYPE H3 (BEAKER) Not detected Not detected, Inconclusive (test fkec=3624) INFLUENZA A SUBTYPE H1-2009 (BEAKER) Not detected Not detected, Inconclusive (test iivf=3185) INFLUENZA B (BEAKER) (test Not detected Not detected, Inconclusive dosb=9881) RESPIRATORY SYNCYTIAL VIRUS (BEAKER) Not detected Not detected, Inconclusive (test dkrc=9644) PARAINFLUENZA VIRUS 1 (BEAKER) (test Not detected Not detected, Inconclusive imtv=0025) PARAINFLUENZA VIRUS 2 (BEAKER) (test Not detected Not detected, Inconclusive sddr=3752) PARAINFLUENZA VIRUS 3 (BEAKER) (test Not detected Not detected, Inconclusive muaz=3104) PARAINFLUENZA VIRUS 4 (BEAKER) (test Not detected Not detected, Inconclusive lcpx=2063) ADENOVIRUS (BEAKER) (test uxgo=9890) Not detected Not detected, Inconclusive CORONAVIRUS 229E (BEAKER) (test Not detected Not detected, Inconclusive wnmz=3189) CORONAVIRUS HKU1 (BEAKER) (test Not detected Not detected, Inconclusive klsx=3470) CORONAVIRUS NL63 (BEAKER) (test Not detected Not detected, Inconclusive ofhx=6607) CORONAVIRUS OC43 (BEAKER) (test Not detected Not detected, Inconclusive fqlb=8491) BORDETELLA PERTUSSIS (BEAKER) (test Not detected Not detected, Inconclusive ejig=6254) CHLAMYDOPHILA PNEUMONIAE (BEAKER) Not detected Not detected, Inconclusive (test iyzw=8060) MYCOPLASMA PNEUMONIAE (BEAKER) (test Not detected Not detected, Inconclusive vniw=4347) TROPONIN [id number] 13:31:00 Test Item Value Reference Range Comments TROPONIN I (BEAKER) (test tpwn=216) 0.08 ng/mL 0.00-0.03 Troponin I (TnI) levels [...] acute neurological disease, and persistent tachyarrhythmia.VANCOMYCIN LEVEL, [id number] 09:30 :00 Test Item Value Reference Range Comments VANCOMYCIN TROUGH (BEAKER) (test hjsr=302) 8.6 ug/mL 10.0-20.0 [id number] 07:03:00 Test Item Value Reference Range Comments MAGNESIUM (BEAKER) (test ggzw=432) 1.7 mg/dL 1.6-2.6 COMPREHENSIVE METABOLIC [id number] 07:03:00 Test Item Value Reference Range Comments TOTAL PROTEIN (BEAKER) 5.6 gm/dL 6.0-8.3 (test uabl=356) ALBUMIN (BEAKER) (test 3.0 g/dL 3.5-5.0 clfe=0475) ALKALINE PHOSPHATASE 106 U/L 40-150 (BEAKER) (test dqmy=217) BILIRUBIN TOTAL (BEAKER) < mg/dL 0.2-1.2 (test vqbr=635) SODIUM (BEAKER) (test 136 meq/L 136-145 wgxx=691) POTASSIUM (BEAKER) (test 3.8 meq/L 3.5-5.1 amjc=125) CHLORIDE (BEAKER) (test 96 meq/L 98-107 vdpm=690) CO2 (BEAKER) (test 33 meq/L 22-29 ejrj=621) BLOOD UREA NITROGEN 13 mg/dL 7-21 (BEAKER) (test mbbr=219) CREATININE (BEAKER) (test 0.56 mg/dL 0.57-1.25 fwgm=365) GLUCOSE RANDOM (BEAKER) 250 mg/dL 70-105 (test ogge=865) CALCIUM (BEAKER) (test 8.3 mg/dL 8.4-10.2 ecpr=571) AST (SGOT) (BEAKER) (test 12 U/L 5-34 lkfz=267) ALT (SGPT) (BEAKER) (test 24 U/L 6-55 ukma=353) EGFR (BEAKER) (test 110 mL/min/1.73 sq ESTIMATED GFR IS NOT ogjz=1665) m ACCURATE CREATININE CLEARANCE IN PREDICTING GLOMERULAR FILTRATION RATE. ESTIMATED GFR IS NOT APPLICABLE FOR DIALYSIS PATIENTS. TROPONIN [id number] 07:00:00 Test Item Value Reference Range Comments TROPONIN I (BEAKER) (test lgwn=442) 0.10 ng/mL 0.00-0.03 Troponin I (TnI) levels [...] acidosis, acute neurological disease, and persistent tachyarrhythmia.TROPONIN [id number] 07:00:00 Test Item Value Reference Range Comments TROPONIN I (BEAKER) (test rcfi=598) 0.09 ng/mL 0.00-0.03 Troponin I (TnI) levels [...] and persistent tachyarrhythmia.CBC W/PLT COUNT & AUTO [id number] 06:20:00 Test Item Value Reference Range Comments WHITE BLOOD CELL COUNT (BEAKER) (test jkgw=722) 10.2 K/ L 3.5-10.5 RED BLOOD CELL COUNT (BEAKER) (test hpvc=159) 3.35 M/ L 3.93-5.22 HEMOGLOBIN (BEAKER) (test nbgx=190) 9.2 GM/DL 11.2-15.7 HEMATOCRIT (BEAKER) (test emjk=853) 29.6 % 34.1-44.9 MEAN CORPUSCULAR VOLUME (BEAKER) (test jnjf=679) 88.4 fL 79.4-94.8 MEAN CORPUSCULAR HEMOGLOBIN (BEAKER) (test 27.5 pg 25.6-32.2 qipd=607) MEAN CORPUSCULAR HEMOGLOBIN CONC (BEAKER) (test 31.1 GM/DL 32.2-35.5 alyu=619) RED CELL DISTRIBUTION WIDTH (BEAKER) (test 16.1 % 11.7-14.4 kdxq=999) PLATELET COUNT (BEAKER) (test qtcn=233) 185 K/CU MM 150-450 MEAN PLATELET VOLUME (BEAKER) (test ycmy=196) 11.0 fL 9.4-12.3 NUCLEATED RED BLOOD CELLS (BEAKER) (test 0 /100 WBC 0-0 pmle=758) NEUTROPHILS RELATIVE PERCENT (BEAKER) (test 91 % tuti=818) LYMPHOCYTES RELATIVE PERCENT (BEAKER) (test 4 % skjr=568) MONOCYTES RELATIVE PERCENT (BEAKER) (test 4 % ulim=285) EOSINOPHILS RELATIVE PERCENT (BEAKER) (test 0 % akjq=213) BASOPHILS RELATIVE PERCENT (BEAKER) (test 0 % mmse=154) NEUTROPHILS ABSOLUTE COUNT (BEAKER) (test 9.34 K/ L 1.56-6.13 kxqh=912) LYMPHOCYTES ABSOLUTE COUNT (BEAKER) (test 0.37 K/ L 1.18-3.74 bvdr=590) MONOCYTES ABSOLUTE COUNT (BEAKER) (test 0.45 K/ L 0.24-0.36 ukbs=528) EOSINOPHILS ABSOLUTE COUNT (BEAKER) (test 0.00 K/ L 0.04-0.36 pvki=198) BASOPHILS ABSOLUTE COUNT (BEAKER) (test 0.01 K/ L 0.01-0.08 phsd=562) IMMATURE GRANULOCYTES-RELATIVE PERCENT (BEAKER) 1 % 0-1 (test zvqv=4061) [id number] 13:17:00 Test Item Value Reference Range Comments PROCALCITONIN (BEAKER) (test uipo=6941) 0.26 ng/mL <0.05 SEPSIS RISK (ng/mL)Low: 0.05-0.50Intermediate: 0.51-2.00High: & gt;=2.01POCT-GLUCOSE [id number] 11:40:00 Test Item Value Reference Range Comments POC-GLUCOSE METER (BEAKER) 162 mg/dL 70-110 TESTED AT [address] (test zctj=6659) [place] [id number] POCT-GLUCOSE [id number] 07:20:00 Test Item Value Reference Range Comments POC-GLUCOSE METER (BEAKER) 97 mg/dL 70-110 TESTED AT [address] (test skjc=4840) [facility] [address] CBC W/PLT COUNT & AUTO [id number] 06:11:00 Test Item Value Reference Range Comments WHITE BLOOD CELL COUNT (BEAKER) (test afmr=893) 7.2 K/ L 3.5-10.5 RED BLOOD CELL COUNT (BEAKER) (test zhqs=689) 3.77 M/ L 3.93-5.22 HEMOGLOBIN (BEAKER) (test zsnd=130) 10.1 GM/DL 11.2-15.7 HEMATOCRIT (BEAKER) (test zuxo=714) 32.9 % 34.1-44.9 MEAN CORPUSCULAR VOLUME (BEAKER) (test mrlg=469) 87.3 fL 79.4-94.8 MEAN CORPUSCULAR HEMOGLOBIN (BEAKER) (test 26.8 pg 25.6-32.2 uvdr=747) MEAN CORPUSCULAR HEMOGLOBIN CONC (BEAKER) (test 30.7 GM/DL 32.2-35.5 sqpr=935) RED CELL DISTRIBUTION WIDTH (BEAKER) (test 16.2 % 11.7-14.4 utbi=853) PLATELET COUNT (BEAKER) (test xohp=537) 222 K/CU MM 150-450 MEAN PLATELET VOLUME (BEAKER) (test xrnc=271) 11.1 fL 9.4-12.3 NUCLEATED RED BLOOD CELLS (BEAKER) (test 0 /100 WBC 0-0 wtpc=115) NEUTROPHILS RELATIVE PERCENT (BEAKER) (test 90 % juyj=471) LYMPHOCYTES RELATIVE PERCENT (BEAKER) (test 7 % syci=984) MONOCYTES RELATIVE PERCENT (BEAKER) (test 2 % exeg=627) EOSINOPHILS RELATIVE PERCENT (BEAKER) (test 0 % dalq=518) BASOPHILS RELATIVE PERCENT (BEAKER) (test 0 % npjz=971) NEUTROPHILS ABSOLUTE COUNT (BEAKER) (test 6.45 K/ L 1.56-6.13 jpdi=815) LYMPHOCYTES ABSOLUTE COUNT (BEAKER) (test 0.53 K/ L 1.18-3.74 ghwa=137) MONOCYTES ABSOLUTE COUNT (BEAKER) (test 0.16 K/ L 0.24-0.36 foxw=136) EOSINOPHILS ABSOLUTE COUNT (BEAKER) (test 0.00 K/ L 0.04-0.36 iphm=819) BASOPHILS ABSOLUTE COUNT (BEAKER) (test 0.01 K/ L 0.01-0.08 cajo=440) IMMATURE GRANULOCYTES-RELATIVE PERCENT (BEAKER) 1 % 0-1 (test ozvz=8495) [id number] 05:50:00 Test Item Value Reference Range Comments MAGNESIUM (BEAKER) (test arfe=771) 1.4 mg/dL 1.6-2.6 COMPREHENSIVE METABOLIC [id number] 05:50:00 Test Item Value Reference Range Comments TOTAL PROTEIN (BEAKER) 5.8 gm/dL 6.0-8.3 (test rusc=194) ALBUMIN (BEAKER) (test 2.9 g/dL 3.5-5.0 kaso=0657) ALKALINE PHOSPHATASE 130 U/L 40-150 (BEAKER) (test qzby=818) BILIRUBIN TOTAL (BEAKER) 0.4 mg/dL 0.2-1.2 (test pspy=563) SODIUM (BEAKER) (test 138 meq/L 136-145 qpbi=127) POTASSIUM (BEAKER) (test 3.0 meq/L 3.5-5.1 dkxb=461) CHLORIDE (BEAKER) (test 93 meq/L 98-107 kdjv=279) CO2 (BEAKER) (test 32 meq/L 22-29 tucv=110) BLOOD UREA NITROGEN 19 mg/dL 7-21 (BEAKER) (test ahcx=268) CREATININE (BEAKER) (test 0.63 mg/dL 0.57-1.25 xulq=697) GLUCOSE RANDOM (BEAKER) 104 mg/dL 70-105 (test gftf=729) CALCIUM (BEAKER) (test 8.3 mg/dL 8.4-10.2 emdt=281) AST (SGOT) (BEAKER) (test 25 U/L 5-34 asvl=674) ALT (SGPT) (BEAKER) (test 29 U/L 6-55 ddty=550) EGFR (BEAKER) (test 96 mL/min/1.73 sq m ESTIMATED GFR IS NOT vbtv=9680) ACCURATE CREATININE CLEARANCE IN PREDICTING GLOMERULAR FILTRATION RATE. ESTIMATED GFR IS NOT APPLICABLE FOR DIALYSIS PATIENTS. BLOOD GAS, [id number] 05:06:00 Test Item Value Reference Range Comments PH ARTERIAL (BEAKER) (test kzwf=686) 7.48 7.35-7.45 PCO2 ARTERIAL (BEAKER) (test wonp=523) 49 mmHg 35-45 PO2 ARTERIAL (BEAKER) (test vmfk=999) 77 mmHg 80-90 O2 SATURATION ARTERIAL (BEAKER) (test rhux=568) 96.0 % 96.0-97.0 HCO3 ARTERIAL (BEAKER) (test rqfn=662) 36 mmol/L 21-29 BASE EXCESS ARTERIAL (BEAKER) (test xlqu=466) 10.7 mmol/L -2.0-3.0 PATIENT TEMPERATURE (BEAKER) (test cpsl=9538) 37.0 C FIO2 (BEAKER) (test idwa=1704) 24.0 % HEPATITIS C [id number] 01:28:00 Test Item Value Reference Range Comments HEPATITIS C ANTIBODY (BEAKER) (test dzqt=793) Equivocal Nonreactive RAPID INFLUENZA A&B [id number] 22:53:00 Test Item Value Reference Range Comments RAPID INFLUENZA A AG (BEAKER) (test Negative Negative, Inconclusive mtnd=1284) RAPID INFLUENZA B AG (BEAKER) (test Negative Negative, Inconclusive irtv=0999) URINALYSIS W/ [id number] 22:38:00 Test Item Value Reference Range Comments COLOR (BEAKER) (test gnkb=601) Yellow CLARITY (BEAKER) (test odmj=970) Clear SPECIFIC GRAVITY UA (BEAKER) (test vkmm=880) 1.019 1.001-1.035 PH UA (BEAKER) (test clar=762) 5.0 5.0-8.0 PROTEIN UA (BEAKER) (test fnnu=789) 10 mg/dL Negative GLUCOSE UA (BEAKER) (test qdfy=838) Negative Negative KETONES UA (BEAKER) (test pbbe=822) 80 mg/dL Negative BILIRUBIN UA (BEAKER) (test udjk=361) Negative Negative BLOOD UA (BEAKER) (test pgfy=403) Negative Negative NITRITE UA (BEAKER) (test hqcx=054) Negative Negative LEUKOCYTE ESTERASE UA (BEAKER) (test atab=032) Small Negative UROBILINOGEN UA (BEAKER) (test spef=317) 0.2 mg/dL 0.2-1.0 RBC UA (BEAKER) (test slvk=835) 1 /HPF WBC UA (BEAKER) (test gjoi=317) 9 /HPF BACTERIA (BEAKER) (test kwkv=775) Rare MUCUS (BEAKER) (test tyvl=1717) Rare SQUAMOUS EPITHELIAL (BEAKER) (test zzvc=528) 1 /HPF CASTS (BEAKER) (test jwuf=5341) 2 /LPF CRYSTALS, URINE (BEAKER) (test crmj=8710) Rare SOURCE(BEAKER) (test paec=5820) Urine, [place] HEPATITIS B CORE ANTIBODY, [id number] 22:36:00 Test Item Value Reference Range Comments HEPATITIS B CORE TOTAL ANTIBODY (BEAKER) (test Nonreactive Nonreactive qkwc=889) HIV-1 ANTIGEN WITH HIV-1/2 [id number] 22:36:00 Test Item Value Reference Range Comments HIV-1 ANTIGEN WITH HIV 1\T\2 ANTIBODY (2) Nonreactive Nonreactive (BEAKER) (test inpj=5092) PROTHROMBIN [id number] 22:34:00 Test Item Value Reference Range Comments PROTIME (BEAKER) (test afmw=172) 14.3 seconds 11.7-14.7 INR (BEAKER) (test vdze=327) 1.1 <=5.9 RECOMMENDED COUMADIN/WARFARIN INR THERAPY RANGESSTANDARD DOSE: 2.0 - 3.0 Includes: PROPHYLAXIS forvenous thrombosis, systemic embolization; TREATMENT for venous thrombosis and/or pulmonary embolus.HIGH RISK: Target INR is 2.5-3.5 for patients with mechanical heart valves.TROPONIN [id number] 22:24:00 Test Item Value Reference Range Comments TROPONIN I (BEAKER) (test jspk=902) 0.19 ng/mL 0.00-0.03 Troponin I (TnI) levels [...] NATRIURETIC PEPTIDE (BEAKER) (test 364 pg/mL 0-100 qoot=277) [id number] 22:14:00 Test Item Value Reference Range Comments PHOSPHORUS (BEAKER) (test rwno=304) 3.4 mg/dL 2.3-4.7 [id number] 22:14:00 Test Item Value Reference Range Comments MAGNESIUM (BEAKER) (test drkt=212) 1.7 mg/dL 1.6-2.6 COMPREHENSIVE METABOLIC [id number] 22:14:00 Test Item Value Reference Range Comments TOTAL PROTEIN (BEAKER) 5.5 gm/dL 6.0-8.3 (test yvvt=910) ALBUMIN (BEAKER) (test 2.9 g/dL 3.5-5.0 ltug=3080) ALKALINE PHOSPHATASE 134 U/L 40-150 (BEAKER) (test gsya=999) BILIRUBIN TOTAL (BEAKER) 0.4 mg/dL 0.2-1.2 (test gmag=142) SODIUM (BEAKER) (test 138 meq/L 136-145 frvg=264) POTASSIUM (BEAKER) (test 3.6 meq/L 3.5-5.1 hmqa=628) CHLORIDE (BEAKER) (test 97 meq/L 98-107 iuse=023) CO2 (BEAKER) (test 31 meq/L 22-29 gzhg=660) BLOOD UREA NITROGEN 20 mg/dL 7-21 (BEAKER) (test wjdh=476) CREATININE (BEAKER) (test 0.58 mg/dL 0.57-1.25 exyz=376) GLUCOSE RANDOM (BEAKER) 75 mg/dL 70-105 (test ijar=555) CALCIUM (BEAKER) (test 8.3 mg/dL 8.4-10.2 ckjz=044) AST (SGOT) (BEAKER) (test 31 U/L 5-34 lbnb=551) ALT (SGPT) (BEAKER) (test 30 U/L 6-55 cvbe=821) EGFR (BEAKER) (test 106 mL/min/1.73 sq ESTIMATED GFR IS NOT fnah=2445) m ACCURATE CREATININE CLEARANCE IN PREDICTING GLOMERULAR FILTRATION RATE. ESTIMATED GFR IS NOT APPLICABLE FOR DIALYSIS PATIENTS. CBC W/PLT COUNT & AUTO [id number] 22:11:00 Test Item Value Reference Range Comments WHITE BLOOD CELL COUNT (BEAKER) (test ukuc=239) 6.6 K/ L 3.5-10.5 RED BLOOD CELL COUNT (BEAKER) (test faqq=104) 3.51 M/ L 3.93-5.22 HEMOGLOBIN (BEAKER) (test erxe=018) 9.7 GM/DL 11.2-15.7 HEMATOCRIT (BEAKER) (test gmss=283) 31.6 % 34.1-44.9 MEAN CORPUSCULAR VOLUME (BEAKER) (test nwdv=973) 90.0 fL 79.4-94.8 MEAN CORPUSCULAR HEMOGLOBIN (BEAKER) (test 27.6 pg 25.6-32.2 xidy=567) MEAN CORPUSCULAR HEMOGLOBIN CONC (BEAKER) (test 30.7 GM/DL 32.2-35.5 xtfj=844) RED CELL DISTRIBUTION WIDTH (BEAKER) (test 16.0 % 11.7-14.4 crge=257) PLATELET COUNT (BEAKER) (test utva=747) 197 K/CU MM 150-450 MEAN PLATELET VOLUME (BEAKER) (test tung=237) 11.0 fL 9.4-12.3 NUCLEATED RED BLOOD CELLS (BEAKER) (test 0 /100 WBC 0-0 ywdd=610) NEUTROPHILS RELATIVE PERCENT (BEAKER) (test 92 % zatv=181) LYMPHOCYTES RELATIVE PERCENT (BEAKER) (test 6 % vjyu=544) MONOCYTES RELATIVE PERCENT (BEAKER) (test 1 % txqu=325) EOSINOPHILS RELATIVE PERCENT (BEAKER) (test 0 % snkz=578) BASOPHILS RELATIVE PERCENT (BEAKER) (test 0 % udma=674) NEUTROPHILS ABSOLUTE COUNT (BEAKER) (test 6.08 K/ L 1.56-6.13 wmsy=424) LYMPHOCYTES ABSOLUTE COUNT (BEAKER) (test 0.40 K/ L 1.18-3.74 pwts=267) MONOCYTES ABSOLUTE COUNT (BEAKER) (test 0.08 K/ L 0.24-0.36 vflk=232) EOSINOPHILS ABSOLUTE COUNT (BEAKER) (test 0.00 K/ L 0.04-0.36 ntln=331) BASOPHILS ABSOLUTE COUNT (BEAKER) (test 0.01 K/ L 0.01-0.08 mdwz=915) IMMATURE GRANULOCYTES-RELATIVE PERCENT (BEAKER) 1 % 0-1 (test nmos=2480) BLOOD GAS, [id number] 20:15:00 Test Item Value Reference Range Comments PH ARTERIAL (BEAKER) (test afxd=536) 7.40 7.35-7.45 PCO2 ARTERIAL (BEAKER) (test hbay=974) 58 mmHg 35-45 PO2 ARTERIAL (BEAKER) (test fcxb=804) 89 mmHg 80-90 O2 SATURATION ARTERIAL (BEAKER) (test sznj=189) 96.6 % 96.0-97.0 HCO3 ARTERIAL (BEAKER) (test pnjb=307) 35 mmol/L 21-29 BASE EXCESS ARTERIAL (BEAKER) (test hops=654) 8.7 mmol/L -2.0-3.0 PATIENT TEMPERATURE (BEAKER) (test rcrw=8770) 37.0 C FIO2 (BEAKER) (test fism=8167) 24.0 % RAD, CHEST, 1 VIEW, NON [id number] 19:30:00Post-intubationReason for exam:-& gt;transfer from OSH, intubated/respiratory [...] MDReport Verified Date/Time: 02/04/2017 19: 30:53 Reading Location:[address] Reading Room
--- OUTSIDE RECORDS SUMMARY | 2017-09-05 22:05 | XMS REPORT ---
:1955 Author Organization e[employer] Care Team Providers Name Role Phone Ahuja, Na Provider Role Unavailable Allergies, Adverse Reactions, Alerts Substance Reaction Event Type Keflex Info Not Available Drug Allergy Cyclobenzaprine HCl Info Not Available Drug Allergy Problems Problem Type Condition Code Onset Dates Condition Status Problem Lower extremity edema R60.0 Active Problem DJD (degenerative joint disease) M19.90 Active Problem Chronic pancreatitis K86.1 Active Problem GERD (gastroesophageal reflux K21.9 Active disease) Problem Osteoporosis M81.0 Active Problem COPD (chronic obstructive pulmonary J44.9 Active disease) Problem Lymphedema I89.0 Active Problem Constipation K59.00 Active Problem Insomnia G47.00 Active Problem Back pain M54.9 Active Assessment Poison hayden dermatitis 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 90627901942 1 MG Orally Active 1 tablet Once a day Creon [facility] 78696835385 23916-56235 Active not defined UNIT Orally Triamcinolone ND 71435437896 0.5 % August Active 1 application Acetonide Externally 11, to affected Twice a day 2017 area Metoprolol ND 66769841255 25 MG Orally Active 1 tablet with Tartrate Twice a day food Albuterol-Ipratro ND 0 2.5-0.5 MG/3ML Active 3 ml pium Inhalation every 6 hrs ProAir RespiClick [facility] [id number] 108 (90 Base) Active 2 puffs as MCG/ACT needed Inhalation every 6 hrs Brovana [facility] 93690811031 15 MCG/2ML Active 2 ml Inhalation Twice a day Protonix [facility] 62024035139 40 MG Active 1 EACH ONCE A DAY ORALLY Metformin HCl [facility] 56254271485 500 MG Orally Active 1 tablet with Twice a day meals Magnesium Oxide [facility] 82156680958 400 MG Orally Active 1 tablet as Once a day needed Pantoprazole [facility] 53629668257 40 MG Orally May Active 1 tablet Sodium Once a day 2017 Methadone HCl [facility] 85721617986 10 MG Orally Active 1 tablet Once a day Lasix [facility] 90599718183 20 MG Orally Active 1 tablet Once a day Medrol [facility] 45358926759 4 MG Orally August Active as directed 2017 Prolia [facility] 66260558549 60 MG/ML Active not defined Subcutaneous MiraLax [facility] 64361436348 - Orally Once Active 1 packet a day mixed with 8 ounces of fluid Ergocalciferol [facility] 94532423713 [address]1748 UNIT Active 1 capsule Orally Results No Known Results Summary Purpose eClinicalWorks Submission
[2017-09-05] MEDS ORDERED: FENTANYL CITR 100 MCG/2 ML ONE (22:25)
--- NOTE | 2017-09-05 23:04 | EDPHYS ---
Physician Documentation [facility] Name: Alee Humphrey Age: 62 yrs Sex: Female : 1955 Arrival Date: 09/05/2017 Time: 22:03 Bed 17 Private MD: ED Physician Hal Andre HPI: 09/05 22:22 This 62 yrs old Female presents to ER via EMS with complaints of Knee Pain. snw 22:22 The patient presents with pain, that is acute, tenderness. The complaints affect the snw right knee. Context: The problem was sustained at home, resulted from pt stood to go to the bathroom and felt and heard an loud pop. Pt's home health provider was with her. Denies fall. Onset: The symptoms/episode began/occurred suddenly, today. Associated signs and symptoms: The patient has no apparent associated signs or symptoms. Severity of symptoms: At their worst the symptoms were moderate. The patient has not experienced similar symptoms in the past. The patient has not recently seen a physician. pt has multiple musculoskeletal problems with short stature and small frame. Historical: - Allergies: 22:16 Keflex (Vomiting); bp 22:16 cyclobenzaprine HCl (Vomiting); bp 22:16 Cephalexin Monohydrate; bp - Home Meds: 22:16 methadone 10 mg Oral tab 4 times a day PRN for pain [Active]; baclofen 10 mg Oral tab 1 bp tab every 6 hrs PRN for pain [Active]; clonazepam 1 mg Oral tab at bedtime [Active]; tiotropium bromide inhalation [Active]; Hydrochlorothiazide Oral [Active]; - PMHx: 22:16 Anxiety; CHF; chronic back pain; Depression; COPD; bp - Immunization history:: Adult Immunizations up to date. - Social history:: Smoking status: Patient/guardian denies using tobacco. - Ebola Screening: : Patient negative for fever greater than or equal to 101.5 degrees Fahrenheit, and additional compatible Ebola Virus Disease symptoms Patient denies exposure to infectious person Patient denies travel to an Ebola-affected area in the 21 days before illness onset No symptoms or risks identified at this time. ROS: 22:21 Constitutional: Negative for fever, chills, and weight loss, Eyes: Negative for injury, snw pain, redness, and discharge, ENT: Negative for injury, pain, and discharge, Neck: Negative for injury, pain, and swelling, Cardiovascular: Negative for chest pain, palpitations, and edema, Respiratory: Negative for shortness of breath, cough, wheezing, and pleuritic chest pain, Abdomen/GI: Negative for abdominal pain, nausea, vomiting, diarrhea, and constipation, Back: Negative for injury and pain, : Negative for injury, bleeding, discharge, and swelling, Skin: Negative for injury, rash, and discoloration, Neuro: Negative for headache, weakness, numbness, tingling, and seizure. 22:21 MS/extremity: Positive for injury or acute deformity, decreased range of motion, pain, of the right knee. Exam: 22:18 Head/Face: Normocephalic, atraumatic. Eyes: Pupils equal round and reactive to light, snw extra-ocular motions intact. Lids and lashes normal. Conjunctiva and sclera are non-icteric and not injected. Cornea within normal limits. Periorbital areas with no swelling, redness, or edema. ENT: Nares patent. No nasal discharge, no septal abnormalities noted. Tympanic membranes are normal and external auditory canals are clear. Oropharynx with no redness, swelling, or masses, exudates, or evidence of obstruction, uvula midline. Mucous membranes moist. Neck: Trachea midline, no thyromegaly or masses palpated, and no cervical lymphadenopathy. Supple, full range of motion without nuchal rigidity, or vertebral point tenderness. No Meningismus. Chest/axilla: Normal chest wall appearance and motion. Nontender with no deformity. No lesions are appreciated. Cardiovascular: Regular rate and rhythm with a normal S1 and S2. No gallops, murmurs, or rubs. Normal PMI, no JVD. No pulse deficits. Respiratory: Lungs have equal breath sounds bilaterally, clear to auscultation and percussion. No rales, rhonchi or wheezes noted. No increased work of breathing, no retractions or nasal flaring. Abdomen/GI: Soft, non-tender, with normal bowel sounds. No distension or tympany. No guarding or rebound. No evidence of tenderness throughout. Back: No spinal tenderness. No costovertebral tenderness. Full range of motion. Neuro: Awake and alert, GCS 15, oriented to person, place, time, and situation. Cranial nerves II-XII grossly intact. Motor strength 5/5 in all extremities. Sensory grossly intact. Cerebellar exam normal. Normal gait. Psych: Awake, alert, with orientation to person, place and time. Behavior, mood, and affect are within normal limits. 22:18 Constitutional: The patient appears alert, awake, uncomfortable. 22:18 Musculoskeletal/extremity: ROM: limited active range of motion due to pain, in the right knee, limited passive range of motion due to pain, generally poor circulation, no recent changes. right knee pain with some bilateral ankle tenderness 22:18 Skin: Appearance: Color: dusky, Temperature: cool. Vital Signs: 22:16 BP 118 / 77; Pulse 80; Resp 16; Temp 97.9; Pulse Ox 96% ; Weight 44.45 kg; bp 23:28 BP 104 / 72; Pulse 70; Resp 18; Pulse Ox 95% ; bp MDM: 22:14 Patient medically screened. snw 23:04 Data reviewed: vital signs, nurses notes. Data interpreted: Pulse oximetry: on room air snw is 96 %. Interpretation: acceptable. Counseling: I had a detailed discussion with the patient and/or guardian regarding: the historical points, exam findings, and any diagnostic results supporting the discharge/admit diagnosis, radiology results, the need for outpatient follow up, to return to the emergency department if symptoms worsen or persist or if there are any questions or concerns that arise at home. Special discussion: Based on the history and exam findings, there is no indication for further emergent testing or inpatient evaluation. I discussed with the patient/guardian the need to see the orthopedic surgeon for further evaluation of the symptoms. I discussed with the patient/guardian the need to see the primary care provider for further evaluation of the symptoms. 09/05 22:13 Order name: Knee Right 3 View XRAY snw 09/05 23:02 Order name: Jorge wrap-joint; Complete Time: 23:07 snw Administered Medications: 22:28 Drug: fentaNYL (PF) 25 mcg Route: IM; Site: right deltoid; rv 23:30 Follow up: Response: Pain is decreased bp 23:36 Follow up: Response: Medication administered at discharge. rv Disposition: 23:33 Co-signature as Attending Physician, Hal Andre MD. rn Disposition: 09/05/17 23:03 Discharged to Home. Impression: Pain in right knee, Internal derangement of knee. - Condition is Stable. - Discharge Instructions: Arthralgia, Knee Bracing, Knee Sprain, Musculoskeletal Pain, Knee Pain, Cryotherapy, Heat Therapy. - Medication Reconciliation Form, Thank You Letter, Antibiotic Education, Prescription Opioid Use form. - Follow up: Private Physician; When: 2 - 3 days; Reason: Recheck today's complaints, Continuance of care, Re-evaluation by your physician. Follow up: Emergency Department; When: As needed; Reason: Worsening of condition. Follow up: Ivan Dexter MD; When: 2 - 3 days; Reason: Recheck today's complaints, Continuance of care. Signatures: Dispatcher [employer] EDMS Crista Dixon, ADVERTISING ACCOUNT EXECUTIVE-C ADVERTISING ACCOUNT EXECUTIVE-Csnw Hal Andre MD MD rn Yon Quiros, RN RN Stanford Morrissey RN RN rv Corrections: (The following items were deleted from the chart) 23:04 23:03 09/05/2017 23:03 Discharged to Home. Impression: Pain in right knee. Condition is snw Stable. Forms are Medication Reconciliation Form, Thank You Letter, Antibiotic Education, Prescription Opioid Use. Follow up: Private Physician; When: 2 - 3 days; Reason: Recheck today's complaints, Continuance of care, Re-evaluation by your physician. Follow up: Emergency Department; When: As needed; Reason: Worsening of condition. Follow up: Ivan Dexter; When: 2 - 3 days; Reason: Recheck today's complaints, Continuance of care. snw 23:32 23:04 09/05/2017 23:03 Discharged to Home. Impression: Pain in right knee; Internal bp derangement of knee. Condition is Stable. Forms are Medication Reconciliation Form, Thank You Letter, Antibiotic Education, Prescription Opioid Use. Follow up: Private Physician; When: 2 - 3 days; Reason: Recheck today's complaints, Continuance of care, Re-evaluation by your physician. Follow up: Emergency Department; When: As needed; Reason: Worsening of condition. Follow up: Ivan Dexter; When: 2 - 3 days; Reason: Recheck today's complaints, Continuance of care. snw
--- NOTE | 2017-09-05 23:04 | ER ---
Nurse's Notes [facility] Name: Alee Humphrey Age: 62 yrs Sex: Female : 1955 Arrival Date: 09/05/2017 Time: 22:03 Bed 17 Private MD: Diagnosis: Pain in right knee;Internal derangement of knee Presentation: 09/05 22:04 Presenting complaint: EMS states: SHE STOOD UP AND FELT HER RIGHT KNEE POP. Transition bp of care: patient was not received from another setting of care. Onset of symptoms was September 05, 2017 at 11:00. Risk Assessment: Do you want to hurt yourself or someone else? Patient reports no desire to harm self or others. Initial Sepsis Screen: Does the patient meet any 2 criteria? No. Patient's initial sepsis screen is negative. Does the patient have a suspected source of infection? No. Patient's initial sepsis screen is negative. Care prior to arrival: IV initiated. 20 GA. 22:04 Acuity: FARHAT 4 bp 22:04 Method Of Arrival: EMS: [facility] bp Triage Assessment: 22:16 General: Appears in no apparent distress. comfortable, Behavior is cooperative, bp appropriate for age, anxious. Pain: Complains of pain in right knee. Historical: - Allergies: 22:16 Keflex (Vomiting); bp 22:16 cyclobenzaprine HCl (Vomiting); bp 22:16 Cephalexin Monohydrate; bp - Home Meds: 22:16 methadone 10 mg Oral tab 4 times a day PRN for pain [Active]; baclofen 10 mg Oral tab 1 bp tab every 6 hrs PRN for pain [Active]; clonazepam 1 mg Oral tab at bedtime [Active]; tiotropium bromide inhalation [Active]; Hydrochlorothiazide Oral [Active]; - PMHx: 22:16 Anxiety; CHF; chronic back pain; Depression; COPD; bp - Immunization history:: Adult Immunizations up to date. - Social history:: Smoking status: Patient/guardian denies using tobacco. - Ebola Screening: : Patient negative for fever greater than or equal to 101.5 degrees Fahrenheit, and additional compatible Ebola Virus Disease symptoms Patient denies exposure to infectious person Patient denies travel to an Ebola-affected area in the 21 days before illness onset No symptoms or risks identified at this time. Screenin:23 Abuse screen: Denies threats or abuse. Denies injuries from another. Nutritional bp screening: No deficits noted. Tuberculosis screening: No symptoms or risk factors identified. Fall Risk No fall in past 12 months (0 pts). No secondary diagnosis (0 pts). Assessment: 22:17 General: Appears in no apparent distress. comfortable, Behavior is calm, cooperative. rv Pain: Complains of pain in right knee Pain began 1100 today. Neuro: Level of Consciousness is awake, alert, obeys commands, Oriented to person, place, time, situation. Cardiovascular: Heart tones S1 S2 present Capillary refill < 3 seconds. Respiratory: Airway is patent. GI: No signs and/or symptoms were reported involving the gastrointestinal system. : No signs and/or symptoms were reported regarding the genitourinary system. EENT: No signs and/or symptoms were reported regarding the EENT system. Derm: Skin is intact. 22:32 Reassessment: Patient appears in no apparent distress at this time. Patient and/or rv family updated on plan of care and expected duration. Pain level reassessed. Patient is alert, oriented x 3, equal unlabored respirations, skin warm/dry/pink. XRAY of the knee done. awaiting result. 23:28 Reassessment: PT D/C HOME WITH FAMILY VIA W/C, DX WITH KNEE PAIN. bp Vital Signs: 22:16 BP 118 / 77; Pulse 80; Resp 16; Temp 97.9; Pulse Ox 96% ; Weight 44.45 kg; bp 23:28 BP 104 / 72; Pulse 70; Resp 18; Pulse Ox 95% ; bp ED Course: 22:03 Patient arrived in ED. bp 22:08 Triage completed. bp 22:13 Crista Dixon FNP-C is PHCP. snw 22:13 Hal Andre MD is Attending Physician. snw 22:16 Arm band placed on. bp 22:23 Patient has correct armband on for positive identification. Bed in low position. Call bp light in reach. Side rails up X2. 22:32 X-ray completed. Portable x-ray completed in exam room. Patient tolerated procedure kc2 well. 22:33 Knee Right 3 View XRAY In Process Unspecified. EDMS 23:03 Ivan Dexter MD is Referral Physician. snw 23:28 Yon Quiros, RN is Primary Nurse. bp 23:31 No provider procedures requiring assistance completed. IV discontinued, intact, bp bleeding controlled, No redness/swelling at site. Pressure dressing applied. Administered Medications: 22:28 Drug: fentaNYL (PF) 25 mcg Route: IM; Site: right deltoid; rv 23:30 Follow up: Response: Pain is decreased bp 23:36 Follow up: Response: Medication administered at discharge. rv Outcome: 23:03 Discharge ordered by . kaushik 23:31 Discharged to home via wheelchair, with family. bp 23:31 Condition: stable 23:31 Discharge instructions given to patient, Instructed on discharge instructions, follow up and referral plans. Demonstrated understanding of instructions, follow-up care. 23:32 Patient left the ED. bp Signatures: Dispatcher [employer] EDMS Crista Dixon FNP-C FNP-Jackie Perrin2 Yon Quiros, RN RN bp Stanford Bustos RN RN rv
[2017-09-05 23:37] VITALS: TEMP 97.9
[2017-09-05 23:38] VITALS: BP 104/72; O2SAT 95
--- NOTE | 2017-09-06 08:06 | RAD REPORT ---
EXAM DESCRIPTION: RAD - Knee Right 3 View - 09/05/2017 10:36 pm CLINICAL HISTORY: Right knee pain FINDINGS: No fracture or dislocation is seen. The bones are osteoporotic. Chondrocalcinosis is seen. There appears to be a small joint effusion present. If the patient continues have symptoms to suggest an occult fracture, ligamentous or meniscal injury then an MRI would be recommended.
== END 2017-09-05 23:32 | disposition home or self-care (01) ==
LOC: ER 22:00
DX: M25.561 Pain in right knee (principal); M23.8X1 Other internal derangements of right knee; Z88.1 Allergy status to other antibiotic agents; Z88.8 Allergy status to other drugs, medicaments and biological substances
CPT/HCPCS: 73562; 96372; 99283; J3010

== ENCOUNTER 2017-11-07 15:59 | Emergency (ER) | payer OTHER ==
--- OUTSIDE RECORDS SUMMARY | 2017-11-07 16:02 | XMS REPORT | Clinical Summary ---
:1955 Author Organization [facility] Address [address] [place] [address] Phone Care Team Providers Name Role Phone [...] Problem Noted Date Acute hypercapnic respiratory failure ([facility]) 02/04/2017 Acute exacerbation of chronic obstructive pulmonary disease (COPD) ([facility]) 02/04 Acute diastolic CHF (congestive heart failure), NYHA class 4 ([facility]) 02/04/2017 Pleural effusion, right 02/04/2017 Community acquired pneumonia of right lower lobe of lung ([facility]) 02/04/2017 Severe protein-calorie malnutrition (Moe: less than 60% of standard 2016 weight) ([facility]) Encounters Date Type Specialty Care Team Description 02/04/2017 - Hospital Encounter Cardiology Minal Duarte Acute diastolic CHF 02/17/2017 Stacey River MD (congestive heart AriSamuel rodríguez MD failure), NYHA class Bety Alarcon, 4 ([facility]);Acute MD exacerbation of chronic obstructive pulmonary disease (COPD) ([facility]);Acute hypercapnic respiratory failure ([facility]);Community acquired pneumonia of right lower lobe of lung ([facility]);Pleural effusion, right;Severe protein-calorie malnutrition (Moe: less than 60% of standard weight) ([facility]) 02/04/2017 Orders Only General Internal Medicine after 11/06/2016 Social History Tobacco Use Types Packs/Day Years Used Date Never Assessed Sex Assigned at Date Recorded Not on file Last Filed Vital Signs Vital Sign Reading Time Taken Blood Pressure 111/66 02/17/2017 8:30 PM CALENDERER Pulse 80 02/17/2017 8:59 PM CALENDERER Temperature 36.8 C (98.2 F) 02/17/2017 8:30 PM CALENDERER Respiratory Rate 20 02/17/2017 8:59 PM CALENDERER Oxygen Saturation 97% 02/17/2017 8:59 PM CALENDERER Inhaled Oxygen Concentration - - Weight 37.1 kg (81 lb 14.4 oz) 02/17/2017 12:00 PM CALENDERER Height 165.1 cm (5' 5") 02/04/2017 6:00 PM CALENDERER Body Mass Index 13.63 02/17/2017 12:00 PM CALENDERER Plan of Treatment Not on file Results RHYTHM STRIP - SCAN (03/03/2017 2:01 PM)Only the most recent of2 resultswithin the time period is included.POC-Glucose meter (02/17/2017 8:29 PM)Only the most recent of37 resultswithin the time period is included. Component Value Ref Range POC-Glucose Meter 175 (H)Comment: TESTED AT [address] 70 - 110 mg/[place] [address] Specimen Performing Laboratory Blood [facility] [address] [address] CBC with platelet count + automated diff [...] % Specimen Performing Laboratory Blood - Arm, [address] [address] CBC with platelet count + automated diff (02/17/2017 6:11 AM)Only the most recent of14 resultswithin the time period is included. Specimen Performing Laboratory Blood Narrative The following orders were created for panel order CBC with platelet count + automated diff. Procedure Abnormality Status --------- ------ CBC with platelet count ...[[id number]]AbnormalFinal result Please view results for these tests on the individual orders. Magnesium (02/17/2017 6:11 AM)Only the most recent of10 resultswithin the time period is included. Component Value Ref Range Magnesium 2.2 1.6 - 2.6 mg/dL Specimen Performing Laboratory Blood - Arm, [address] [address] Basic Metabolic Panel (02/17/2017 6:11 AM)Only the [...] PATIENTS. Specimen Performing Laboratory Blood - Arm, [address] [place] [address] ECG 12 lead (02/15/2017 12:09 PM)Only the most recent of3 resultswithin the time period is included. Specimen Performing Laboratory GE MUSE Narrative Ventricular Rate 91 BPM Atrial Rate 91 BPM P-R Interval 94 ms QRS Duration 86 ms Q-T Interval 348 ms QTC Calculation(Bazett) 428 ms P [place] 39 degrees R [place] 21 degrees T [place] 65 degrees Sinus rhythm with short FL Moderate voltage criteria for LVH, may be normal variant When compared with ECG of 04-FEB-2017 21:46, Amplitude of the T waves has increased Confirmed by Julieta FREEMAN, KEVYN ([id number]) on 02/16/2017 8:24:59 AM Procedure Note Interface, External Ris In - 02/16/2017 8:25 AM CALENDERER Ventricular Rate 91 BPM Atrial Rate 91 BPM P-R Interval 94 ms QRS Duration 86 ms Q-T Interval 348 ms QTC Calculation(Bazett) 428 ms P [place] 39 degrees R [place] 21 degrees T [place] 65 degrees Sinus rhythm with short FL Moderate voltage criteria for LVH, may be [...] Laboratory Blood, Arterial - Arm, Left [facility] [address] [address] XR chest 1 view portable / bedside [...] MD Report Verified Date/Time:02/11/2017 08:47:53 Reading Location: [facility] C0[facility] Neuro Reading Room Procedure Note Interface, External Ris In - 02/11/2017 8:51 AM CALENDERER FINAL REPORT Chest one view INDICATION: Shortness [...] Report Verified Date/Time: 02/11/2017 08:47:53 Reading Location: [facility] C0[facility] Neuro Reading Room Sputum Culture + Gram Stain (02/10/2017 11:29 AM) Component Value Ref Range Result 4+ Normal respiratory paul present Gram Stain Result 2+ WBCs Gram Stain Result 0-5 epithelial cells Gram Stain Result 4+ gram negative rods Gram Stain Result 4+ gram positive cocci in clusters Gram Stain Result 1+ yeast with pseudohyphae Specimen Performing Laboratory Sputum - Expectorated [facility] [address] [address] Manual Differential (02/10/2017 10:22 AM) Component Value [...] RBC Morphology Normal Specimen Performing Laboratory Blood [address] [address] Lactic acid, venous, whole blood (02/10/2017 10:14 AM) Component Value Ref Range Lactate, Venous 1.8 0.5 - 2.2 mmol/L Specimen Performing Laboratory Blood - Arm, Left [address] [address] Narrative Effective 07/15/2015: Units/Reference Range Change New: 0.5-2.2 mmol/LPrevious: 5-20 mg/dL Hemoglobin A1c (02/08/2017 5:07 AM) Component Value Ref Range Hemoglobin A1C 5.8 4.3 - 6.1 % Specimen Performing Laboratory Blood [address] [address] Comprehensive metabolic panel (02/08/2017 5:07 AM)Only the [...] Specimen Performing Laboratory Blood [facility] [address] [place] [address] US thoracentesis (02/07/2017 5:40 PM) Specimen Performing [...] was prepped and anesthetized and a 5 Honduran needle/catheter was inserted into the right pleural space. Four 25 cc of yellowish fluid were removed. A chest x-ray was ordered. CONCLUSION: Ultrasound-guided thoracentesis Signed: Dell Pacheco MD Report Verified Date/Time:02/07/2017 18:23:13 Reading Location: [address] Ultrasound Reading Room Procedure Note Interface, External Ris In - 02/07/2017 6:25 PM CALENDERER FINAL REPORT Procedure: Ultrasound-guided right thoracentesis, 02/07/2017 [...] was prepped and anesthetized and a 5 Honduran needle/catheter was inserted into the right pleural space. Four 25 cc of yellowish fluid were removed. A chest x-ray was ordered. CONCLUSION: Ultrasound-guided thoracentesis Signed: Dell Pacheco MD Report Verified Date/Time: 02/07/2017 18:23:13 Reading Location: [facility] B1 P006 Ultrasound Reading Room Body fluid culture + gram stain (02/07/2017 5:15 PM) Component Value Ref Range Result No growth Gram Stain Result <1+ WBCs Gram Stain Result No organisms seen Specimen Performing Laboratory Body Fluid - Pleural, [address] [address] Body fluid cell count with differential (02/07/2017 [...] Specimen Performing Laboratory Body Fluid - Pleural, [address] [address] Protein, body fluid (02/07/2017 5:15 PM) Component Value Ref Range Protein, Fluid 1.8 Light's criteria identifies effusions if one or more are present: Pleural to serum protein ratio of more than 0.5; Pleural to Serum LDH of more than 0.6; Pleural LDH of more than two third of upper serum reference limit g/dL Specimen Performing Laboratory Body Fluid - Pleural, [address] [address] Narrative Absence of reference range indicates that [...] Specimen Performing Laboratory Body Fluid - Pleural, [address] [address] Narrative Absence of reference range indicates that normals have not been defined. Assay performance has not been validated for this type of specimen. PT/aPTT (02/07/2017 11:22 AM) Component Value Ref Range Protime 13.4 11.7 - 14.7 seconds INR 1.0 <=5.9 PTT 25.9 22.5 - 36.0 seconds Specimen Performing Laboratory Blood - Arm, [address] [address] Narrative RECOMMENDED COUMADIN/WARFARIN INR THERAPY RANGES STANDARD DOSE: 2.0 - 3.0 Includes: PROPHYLAXIS for venous thrombosis, systemic embolization; TREATMENT for venous thrombosis and/or pulmonary embolus. HIGH RISK: Target INR is 2.5-3.5 for patients with mechanical heart valves. Lactate dehydrogenase (LDH) (02/07/2017 11:22 AM) Component Value Ref Range LDH 296 (H) 125 - 220 U/L Specimen Performing Laboratory Blood - Arm, [address] [address] Lipid panel (02/07/2017 3:22 AM) Component Value Ref Range Triglycerides 101 mg/dL Cholesterol 134 mg/dL HDL 52 mg/dL LDL Calculated 62 mg/dL Specimen Performing Laboratory Blood - Arm, [address] [address] Narrative Triglyceride Reference Range: Low Risk <150 [id number] High Risk 200-499 Very High Risk>=500 Cholesterol Reference Range: Low Risk <200 [id number] High Risk>240 HDL Cholesterol Reference Range: Low Risk >=60 High Risk <40 LDL Cholesterol Reference Range: Optimal<100 Near [id number] Very High >=190 CT chest without IV contrast (02/06/2017 10:03 PM) Specimen Performing Laboratory [employer] Narrative FINAL REPORT INDICATION: 62-year-old female with [...] MD Report Verified Date/Time:02/06/2017 23:24:50 Reading Location: [address] Consult Reading Room Procedure Note Interface, External Ris In - 02/06/2017 11:27 PM CALENDERER FINAL REPORT INDICATION: 62-year-old female with hypoxia. [...] Report Verified Date/Time: 02/06/2017 23:24:50 Reading Location: [facility] B1 C013W Consult Reading Room /Free T4 If Indicated (02/06/2017 6:44 PM) Component Value Ref Range TSH 0.47 0.35 - 4.94 uIU/mL Specimen Performing Laboratory Blood - Arm, [address] [address] Troponin I (02/06/2017 12:50 PM)Only the most recent of4 resultswithin the time period is included. Component Value Ref Range Troponin I 0.08 (H) 0.00 - 0.03 ng/mL Specimen Performing [place] [address] Narrative Troponin I (TnI) levels must be [...] - 20.0 ug/mL Specimen Performing Laboratory Blood [address] [address] Hepatitis C PCR, Quantitative (02/06/2017 5:45 AM) Component Value Ref Range HCV PCR, Quantitative HCV RNA not detected HCV RNA not detected Specimen Performing Laboratory Blood - Arm, [address] [address] Narrative This test uses a Real-Time Polymerase Chain Reaction (RT-PCR) methodology and was performed using ANN Ampliprep/ANN TaqMan HCV test kit version 2.0 ( [employer]). Reportable range for this assay is 15 - 100,000,000 IU per mL (1.18 - 8.00 Log IU/mL). This test uses a Real-Time Polymerase Chain Reaction (RT-PCR) methodology and was performed using ANN Ampliprep/ANN TaqMan HCV test kit version 2.0 ( [employer] Reportable range for this assay is 15 - 100,000,000 IU per mL (1.18 - 8.00 Log IU/mL). 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 Paper Folding Machine Operator Juan Casper Interpreting Physician SANTA Olivera Procedure [...] ng/mL Specimen Performing Laboratory Blood - Arm, [facility] LABORATORY [address] [place] [address] Narrative SEPSIS RISK (ng/mL) Low:0.05-0.50 Intermediate: 0.51-2.00 High: >=2.01 Blood culture (02/05/2017 4:33 AM)Only the most recent of2 resultswithin the time period is included. Component Value Ref Range Result No growth in 5 days Specimen Performing Laboratory Blood - Arm, [facility] [address] [place] [address] Venous doppler legs bilateral (02/04/2017 10:30 PM) Component Value Ref Range Ejection Fraction Specimen Performing Laboratory [facility] ECHO HEARTLAB [facility] Impressions Right Impression 1. There is no [...] Date of Study 02/04/2017 Age 62 Visit [id number] Gender Female Date of 01/30 Number [facility] 7104 Physician Aleta Duatre Chicken Picker Kasandra Aden T InterpretingAdam Schmid Physician , [...] External Ris In - 02/05/2017 5:52 AM CALENDERER PV LAB - Lower Extremities DVT Study Demographics Patient Name ALEE KOO Date of Study 02/04/2017 Age 62 Visit Number [id number] Gender Female Date of 1955 Number Referring Sander Room Number 7104 Physician Aleta Duarte Chicken Picker Kasandra Aden RVT Interpreting Adam Schmid, Physician [...] Specimen Performing Laboratory Nasal - Nasopharyngeal Swab [address] [facility] (02/04/2017 10:07 PM) Component Value Ref Range [...] Inconclusive Specimen Performing Laboratory Nasopharyngeal - Nasopharynx, [address] [address] HIV-1 Antigen with HIV-1/2 Antibody (02/04/2017 9:40 PM) Component Value Ref Range HIV-1 Antigen with HIV 1&2 Antibody Nonreactive Nonreactive Specimen Performing Laboratory Blood - Arm, [address] [address] Hepatitis C antibody (02/04/2017 9:40 PM) Component Value Ref Range Hepatitis C Ab Equivocal (A) Nonreactive Specimen Performing Laboratory Blood - Arm, [address] [address] Hepatitis B core antibody, total (02/04/2017 9:40 PM) Component Value Ref Range Hep B Core Total Ab Nonreactive Nonreactive Specimen Performing Laboratory Blood - Arm, [address] [address] Prothrombin time/INR (02/04/2017 9:33 PM) Component Value Ref Range Protime 14.3 11.7 - 14.7 seconds INR 1.1 <=5.9 Specimen Performing Laboratory Blood - Arm, [address] [address] Narrative RECOMMENDED COUMADIN/WARFARIN INR THERAPY RANGES STANDARD DOSE: 2.0 - 3.0 Includes: PROPHYLAXIS for venous thrombosis, systemic embolization; TREATMENT for venous thrombosis and/or pulmonary embolus. HIGH RISK: Target INR is 2.5-3.5 for patients with mechanical heart valves. Phosphorus (02/04/2017 9:33 PM) Component Value Ref Range Phosphorus 3.4 2.3 - 4.7 mg/dL Specimen Performing Laboratory Blood - Arm, [address] [address] B-type Natriuretic Factor (BNP) (02/04/2017 9:33 PM) Component Value Ref Range BNP 364 (H) 0 - 100 pg/mL Specimen Performing Laboratory Blood - Arm, [address] [address] Urine culture (02/04/2017 9:13 PM) Component Value Ref Range Result Result >100,000 col/mL Susan glabrata (A) Specimen Performing Laboratory Urine - Urine, [address] [address] Urinalysis w/Microscopic (02/04/2017 9:12 PM) Component Value Ref Range Color, UA Yellow Clarity, UA Clear Specific [place], UA 1.019 1.001 - 1.035 pH, UA [...] Solorio Specimen Performing Laboratory Urine - Urine, [address] [address] after 11/06/2016
--- OUTSIDE RECORDS SUMMARY | 2017-11-07 16:04 | XMS REPORT ---
:1955 [facility] Organization [facility] Address [facility]3 Wiliam Gotti [address] [place] [id number] Care Team Providers Name Role Phone LYNN [...] (BEAKER) (test 175 mg/dL 70-110 TESTED AT [facility] [address] [place] [address] pars=4613) [facility] [address] POCT-GLUCOSE [id number] 08:27:00 Test Item Value Reference Range Comments POC-GLUCOSE METER (BEAKER) 83 mg/dL 70-110 TESTED AT [address] (test wjea=1966) [facility] [address] CBC W/PLT COUNT & AUTO [id number] 07:16:00 Test Item Value Reference Range Comments WHITE BLOOD CELL COUNT (BEAKER) (test nirf=905) 17.1 K/ L 3.5-10.5 RED BLOOD CELL COUNT (BEAKER) (test avky=301) 3.96 M/ L 3.93-5.22 HEMOGLOBIN (BEAKER) (test scrl=461) 10.7 GM/DL 11.2-15.7 HEMATOCRIT (BEAKER) (test cazu=897) 34.8 % 34.1-44.9 MEAN CORPUSCULAR VOLUME (BEAKER) (test vcxa=353) 87.9 fL 79.4-94.8 MEAN CORPUSCULAR HEMOGLOBIN (BEAKER) (test 27.0 pg 25.6-32.2 rdzn=828) MEAN CORPUSCULAR HEMOGLOBIN CONC (BEAKER) (test 30.7 GM/DL 32.2-35.5 cvth=462) RED CELL DISTRIBUTION WIDTH (BEAKER) (test 15.6 % 11.7-14.4 etkm=817) PLATELET COUNT (BEAKER) (test cvgb=046) 334 K/CU MM 150-450 MEAN PLATELET VOLUME (BEAKER) (test znel=981) 11.1 fL 9.4-12.3 NUCLEATED RED BLOOD CELLS (BEAKER) (test 0 /100 WBC 0-0 orht=015) NEUTROPHILS RELATIVE PERCENT (BEAKER) (test 84 % hjlm=954) LYMPHOCYTES RELATIVE PERCENT (BEAKER) (test 8 % pvdq=984) MONOCYTES RELATIVE PERCENT (BEAKER) (test 7 % ixjt=469) EOSINOPHILS RELATIVE PERCENT (BEAKER) (test 0 % difd=889) BASOPHILS RELATIVE PERCENT (BEAKER) (test 0 % exjj=731) NEUTROPHILS ABSOLUTE COUNT (BEAKER) (test 14.26 K/ L 1.56-6.13 lixe=289) LYMPHOCYTES ABSOLUTE COUNT (BEAKER) (test 1.43 K/ L 1.18-3.74 sfrm=154) MONOCYTES ABSOLUTE COUNT (BEAKER) (test 1.10 K/ L 0.24-0.36 yczx=053) EOSINOPHILS ABSOLUTE COUNT (BEAKER) (test 0.05 K/ L 0.04-0.36 pjfp=494) BASOPHILS ABSOLUTE COUNT (BEAKER) (test 0.01 K/ L 0.01-0.08 zsib=754) IMMATURE GRANULOCYTES-RELATIVE PERCENT (BEAKER) 1 % 0-1 (test gybu=2806) [id number] 07:00:00 Test Item Value Reference Range Comments MAGNESIUM (BEAKER) (test bggg=972) 2.2 mg/dL 1.6-2.6 BASIC METABOLIC [id number] 07:00:00 Test Item Value Reference Range Comments SODIUM (BEAKER) (test 133 meq/L 136-145 yscw=882) POTASSIUM (BEAKER) (test 4.3 meq/L 3.5-5.1 viez=799) CHLORIDE (BEAKER) (test 91 meq/L 98-107 pjyw=752) CO2 (BEAKER) (test 34 meq/L 22-29 sxnv=620) BLOOD UREA NITROGEN 19 mg/dL 7-21 (BEAKER) (test hfcb=957) CREATININE (BEAKER) (test 0.61 mg/dL 0.57-1.25 thpk=512) GLUCOSE RANDOM (BEAKER) 61 mg/dL 70-105 (test qqdc=201) CALCIUM (BEAKER) (test 8.9 mg/dL 8.4-10.2 qufk=719) EGFR (BEAKER) (test 100 mL/min/1.73 sq m ESTIMATED GFR IS NOT qhbo=5144) ACCURATE CREATININE CLEARANCE IN PREDICTING GLOMERULAR FILTRATION RATE. ESTIMATED GFR IS NOT APPLICABLE FOR DIALYSIS PATIENTS. POCT-GLUCOSE [id number] 20:42:00 Test Item Value Reference Range Comments POC-GLUCOSE METER (BEAKER) 183 mg/dL 70-110 TESTED AT [address] (test szvj=3287) [facility] [address] POCT-GLUCOSE [id number] 11:38:00 Test Item Value Reference Range Comments POC-GLUCOSE METER (BEAKER) 130 mg/dL 70-110 TESTED AT [address] (test dgsn=9756) [place] [id number] POCT-GLUCOSE [id number] 08:08:00 Test Item Value Reference Range Comments POC-GLUCOSE METER (BEAKER) 67 mg/dL 70-110 Will Repeat Test/TESTED AT (test itfd=2993) [address] [address] [id number] 06:51:00 Test Item Value Reference Range Comments MAGNESIUM (BEAKER) (test vemw=307) 2.0 mg/dL 1.6-2.6 BASIC METABOLIC [id number] 06:51:00 Test Item Value Reference Range Comments SODIUM (BEAKER) (test 134 meq/L 136-145 viti=623) POTASSIUM (BEAKER) (test 4.4 meq/L 3.5-5.1 czvq=861) CHLORIDE (BEAKER) (test 92 meq/L 98-107 hfwh=268) CO2 (BEAKER) (test 34 meq/L 22-29 alwd=034) BLOOD UREA NITROGEN 17 mg/dL 7-21 (BEAKER) (test fyhq=820) CREATININE (BEAKER) (test 0.56 mg/dL 0.57-1.25 rago=660) GLUCOSE RANDOM (BEAKER) 66 mg/dL 70-105 (test xfaj=716) CALCIUM (BEAKER) (test 8.8 mg/dL 8.4-10.2 nyut=867) EGFR (BEAKER) (test 110 mL/min/1.73 sq m ESTIMATED GFR IS NOT dxpg=4834) ACCURATE CREATININE CLEARANCE IN PREDICTING GLOMERULAR FILTRATION RATE. ESTIMATED GFR IS NOT APPLICABLE FOR DIALYSIS PATIENTS. CBC W/PLT COUNT & AUTO [id number] 06:00:00 Test Item Value Reference Range Comments WHITE BLOOD CELL COUNT (BEAKER) (test uqij=856) 17.0 K/ L 3.5-10.5 RED BLOOD CELL COUNT (BEAKER) (test zgqb=938) 4.16 M/ L 3.93-5.22 HEMOGLOBIN (BEAKER) (test zstt=548) 11.1 GM/DL 11.2-15.7 HEMATOCRIT (BEAKER) (test fffg=285) 36.3 % 34.1-44.9 MEAN CORPUSCULAR VOLUME (BEAKER) (test xiam=664) 87.3 fL 79.4-94.8 MEAN CORPUSCULAR HEMOGLOBIN (BEAKER) (test 26.7 pg 25.6-32.2 qhtd=393) MEAN CORPUSCULAR HEMOGLOBIN CONC (BEAKER) (test 30.6 GM/DL 32.2-35.5 ygsb=269) RED CELL DISTRIBUTION WIDTH (BEAKER) (test 15.6 % 11.7-14.4 uapy=081) PLATELET COUNT (BEAKER) (test llcz=659) 293 K/CU MM 150-450 MEAN PLATELET VOLUME (BEAKER) (test bruu=883) 11.7 fL 9.4-12.3 NUCLEATED RED BLOOD CELLS (BEAKER) (test 0 /100 WBC 0-0 xvsk=044) NEUTROPHILS RELATIVE PERCENT (BEAKER) (test 81 % hbgo=075) LYMPHOCYTES RELATIVE PERCENT (BEAKER) (test 9 % wkmz=996) MONOCYTES RELATIVE PERCENT (BEAKER) (test 8 % dptw=276) EOSINOPHILS RELATIVE PERCENT (BEAKER) (test 1 % rrlq=217) BASOPHILS RELATIVE PERCENT (BEAKER) (test 0 % jbvk=378) NEUTROPHILS ABSOLUTE COUNT (BEAKER) (test 13.77 K/ L 1.56-6.13 rarr=670) LYMPHOCYTES ABSOLUTE COUNT (BEAKER) (test 1.51 K/ L 1.18-3.74 lbvx=137) MONOCYTES ABSOLUTE COUNT (BEAKER) (test 1.35 K/ L 0.24-0.36 adgu=017) EOSINOPHILS ABSOLUTE COUNT (BEAKER) (test 0.08 K/ L 0.04-0.36 ilgt=925) BASOPHILS ABSOLUTE COUNT (BEAKER) (test 0.04 K/ L 0.01-0.08 yekr=946) IMMATURE GRANULOCYTES-RELATIVE PERCENT (BEAKER) 1 % 0-1 (test zcsn=0168) POCT-GLUCOSE [id number] 21:21:00 Test Item Value Reference Range Comments POC-GLUCOSE METER (BEAKER) 177 mg/dL 70-110 TESTED AT [address] (test friq=0186) [facility] [address] POCT-GLUCOSE [id number] 17:52:00 Test Item Value Reference Range Comments POC-GLUCOSE METER (BEAKER) 191 mg/dL 70-110 TESTED AT [address] (test yrzy=6233) [facility] [address] POCT-GLUCOSE [id number] 11:46:00 Test Item Value Reference Range Comments POC-GLUCOSE METER (BEAKER) 145 mg/dL 70-110 TESTED AT [address] (test wxly=0196) [facility] [address] POCT-GLUCOSE [id number] 07:59:00 Test Item Value Reference Range Comments POC-GLUCOSE METER (BEAKER) 89 mg/dL 70-110 TESTED AT [address] (test jkzr=2494) [facility] [address] [id number] 04:29:00 Test Item Value Reference Range Comments MAGNESIUM (BEAKER) (test fkpf=216) 2.1 mg/dL 1.6-2.6 BASIC METABOLIC [id number] 04:29:00 Test Item Value Reference Range Comments SODIUM (BEAKER) (test 134 meq/L 136-145 lyfo=034) POTASSIUM (BEAKER) (test 4.7 meq/L 3.5-5.1 rqpy=152) CHLORIDE (BEAKER) (test 91 meq/L 98-107 xzdo=417) CO2 (BEAKER) (test 36 meq/L 22-29 kacz=740) BLOOD UREA NITROGEN 14 mg/dL 7-21 (BEAKER) (test ayys=210) CREATININE (BEAKER) (test 0.56 mg/dL 0.57-1.25 xavh=764) GLUCOSE RANDOM (BEAKER) 138 mg/dL 70-105 (test whct=559) CALCIUM (BEAKER) (test 8.3 mg/dL 8.4-10.2 vqir=296) EGFR (BEAKER) (test 110 mL/min/1.73 sq m ESTIMATED GFR IS NOT uluh=3201) ACCURATE CREATININE CLEARANCE IN PREDICTING GLOMERULAR FILTRATION RATE. ESTIMATED GFR IS NOT APPLICABLE FOR DIALYSIS PATIENTS. CBC W/PLT COUNT & AUTO [id number] 04:18:00 Test Item Value Reference Range Comments WHITE BLOOD CELL COUNT (BEAKER) (test kksc=204) 14.1 K/ L 3.5-10.5 RED BLOOD CELL COUNT (BEAKER) (test zybn=501) 4.06 M/ L 3.93-5.22 HEMOGLOBIN (BEAKER) (test hqtf=103) 11.1 GM/DL 11.2-15.7 HEMATOCRIT (BEAKER) (test chde=787) 35.9 % 34.1-44.9 MEAN CORPUSCULAR VOLUME (BEAKER) (test zpui=754) 88.4 fL 79.4-94.8 MEAN CORPUSCULAR HEMOGLOBIN (BEAKER) (test 27.3 pg 25.6-32.2 pqqa=585) MEAN CORPUSCULAR HEMOGLOBIN CONC (BEAKER) (test 30.9 GM/DL 32.2-35.5 lqcb=907) RED CELL DISTRIBUTION WIDTH (BEAKER) (test 15.5 % 11.7-14.4 jdoq=388) PLATELET COUNT (BEAKER) (test anja=596) 309 K/CU MM 150-450 MEAN PLATELET VOLUME (BEAKER) (test cbsw=607) 10.7 fL 9.4-12.3 NUCLEATED RED BLOOD CELLS (BEAKER) (test 0 /100 WBC 0-0 zgqs=554) NEUTROPHILS RELATIVE PERCENT (BEAKER) (test 89 % duzx=977) LYMPHOCYTES RELATIVE PERCENT (BEAKER) (test 5 % pdev=552) MONOCYTES RELATIVE PERCENT (BEAKER) (test 5 % djzy=053) EOSINOPHILS RELATIVE PERCENT (BEAKER) (test 0 % hhmn=161) BASOPHILS RELATIVE PERCENT (BEAKER) (test 0 % gzuq=020) NEUTROPHILS ABSOLUTE COUNT (BEAKER) (test 12.50 K/ L 1.56-6.13 scfw=786) LYMPHOCYTES ABSOLUTE COUNT (BEAKER) (test 0.68 K/ L 1.18-3.74 krmx=460) MONOCYTES ABSOLUTE COUNT (BEAKER) (test 0.74 K/ L 0.24-0.36 wpxm=337) EOSINOPHILS ABSOLUTE COUNT (BEAKER) (test 0.00 K/ L 0.04-0.36 ecnt=360) BASOPHILS ABSOLUTE COUNT (BEAKER) (test 0.01 K/ L 0.01-0.08 rktf=099) IMMATURE GRANULOCYTES-RELATIVE PERCENT (BEAKER) 1 % 0-1 (test zqbq=3990) POCT-GLUCOSE [id number] 21:24:00 Test Item Value Reference Range Comments POC-GLUCOSE METER (BEAKER) 257 mg/dL 70-110 TESTED AT [address] (test wmuu=2428) [place] [address] POCT-GLUCOSE [id number] 17:18:00 Test Item Value Reference Range Comments POC-GLUCOSE METER (BEAKER) 171 mg/dL 70-110 TESTED AT [address] (test xegn=8828) [place] [id number] POCT-GLUCOSE [id number] 12:43:00 Test Item Value Reference Range Comments POC-GLUCOSE METER (BEAKER) 178 mg/dL 70-110 TESTED AT [address] (test ilic=1595) [place] [id number] CBC W/PLT COUNT & AUTO [id number] 09:33:00 Test Item Value Reference Range Comments WHITE BLOOD CELL COUNT (BEAKER) (test srvk=648) 15.2 K/ L 3.5-10.5 RED BLOOD CELL COUNT (BEAKER) (test kqco=993) 4.36 M/ L 3.93-5.22 HEMOGLOBIN (BEAKER) (test doxd=301) 11.8 GM/DL 11.2-15.7 HEMATOCRIT (BEAKER) (test uele=962) 37.6 % 34.1-44.9 MEAN CORPUSCULAR VOLUME (BEAKER) (test lgug=177) 86.2 fL 79.4-94.8 MEAN CORPUSCULAR HEMOGLOBIN (BEAKER) (test 27.1 pg 25.6-32.2 zhds=521) MEAN CORPUSCULAR HEMOGLOBIN CONC (BEAKER) (test 31.4 GM/DL 32.2-35.5 lilx=091) RED CELL DISTRIBUTION WIDTH (BEAKER) (test 15.6 % 11.7-14.4 lyxf=128) PLATELET COUNT (BEAKER) (test uhgh=556) 289 K/CU MM 150-450 MEAN PLATELET VOLUME (BEAKER) (test fllo=275) 12.1 fL 9.4-12.3 NUCLEATED RED BLOOD CELLS (BEAKER) (test 0 /100 WBC 0-0 gaiw=269) NEUTROPHILS RELATIVE PERCENT (BEAKER) (test 78 % rvfz=806) LYMPHOCYTES RELATIVE PERCENT (BEAKER) (test 10 % yhju=984) MONOCYTES RELATIVE PERCENT (BEAKER) (test 10 % muls=099) EOSINOPHILS RELATIVE PERCENT (BEAKER) (test 1 % rieb=917) BASOPHILS RELATIVE PERCENT (BEAKER) (test 0 % yzuv=810) NEUTROPHILS ABSOLUTE COUNT (BEAKER) (test 11.75 K/ L 1.56-6.13 uock=410) LYMPHOCYTES ABSOLUTE COUNT (BEAKER) (test 1.54 K/ L 1.18-3.74 uspz=932) MONOCYTES ABSOLUTE COUNT (BEAKER) (test 1.56 K/ L 0.24-0.36 uhqx=281) EOSINOPHILS ABSOLUTE COUNT (BEAKER) (test 0.08 K/ L 0.04-0.36 wout=353) BASOPHILS ABSOLUTE COUNT (BEAKER) (test 0.03 K/ L 0.01-0.08 apoy=317) IMMATURE GRANULOCYTES-RELATIVE PERCENT (BEAKER) 1 % 0-1 (test usli=5545) POCT-GLUCOSE [id number] 07:00:00 Test Item Value Reference Range Comments POC-GLUCOSE METER (BEAKER) 101 mg/dL 70-110 TESTED AT [facility] [address] [facility] (test nnth=5563) [facility] [address] [id number] 05:09:00 Test Item Value Reference Range Comments MAGNESIUM (BEAKER) (test 2.3 mg/dL 1.6-2.6 Specimen slightly hemolyzed nfzb=657) BASIC METABOLIC [id number] 05:09:00 Test Item Value Reference Range Comments SODIUM (BEAKER) (test 134 meq/L 136-145 yvhy=582) POTASSIUM (BEAKER) (test 5.1 meq/L 3.5-5.1 Specimen slightly hqaa=282) hemolyzed CHLORIDE (BEAKER) (test 96 meq/L 98-107 pzdx=384) CO2 (BEAKER) (test 33 meq/L 22-29 atma=446) BLOOD UREA NITROGEN 13 mg/dL 7-21 (BEAKER) (test aevh=555) CREATININE (BEAKER) (test 0.48 mg/dL 0.57-1.25 Specimen slightly xope=135) hemolyzed GLUCOSE RANDOM (BEAKER) 73 mg/dL 70-105 (test uhcm=150) CALCIUM (BEAKER) (test 8.3 mg/dL 8.4-10.2 lkof=200) EGFR (BEAKER) (test 131 mL/min/1.73 sq m ESTIMATED GFR IS NOT awzl=4692) ACCURATE CREATININE CLEARANCE IN PREDICTING GLOMERULAR FILTRATION RATE. ESTIMATED GFR IS NOT APPLICABLE FOR DIALYSIS PATIENTS. POCT-GLUCOSE [id number] 21:25:00 Test Item Value Reference Range Comments POC-GLUCOSE METER (BEAKER) 334 mg/dL 70-110 Will Repeat Test/TESTED AT (test hbmw=7167) [address] [address] BLOOD GAS, [id number] 12:45:00 Test Item Value Reference Range Comments PH ARTERIAL (BEAKER) (test indj=880) 7.47 7.35-7.45 PCO2 ARTERIAL (BEAKER) (test adsc=558) 60 mmHg 35-45 PO2 ARTERIAL (BEAKER) (test ppdz=548) 79 mmHg 80-90 O2 SATURATION ARTERIAL (BEAKER) (test vqox=911) 96.2 % 96.0-97.0 HCO3 ARTERIAL (BEAKER) (test oegb=839) 42 mmol/L 21-29 BASE EXCESS ARTERIAL (BEAKER) (test elxm=861) 15.6 mmol/L -2.0-3.0 PATIENT TEMPERATURE (BEAKER) (test bofb=6315) 36.7 C FIO2 (BEAKER) (test lssx=9920) 32.0 % POCT-GLUCOSE [id number] 11:48:00 Test Item Value Reference Range Comments POC-GLUCOSE METER (BEAKER) 140 mg/dL 70-110 TESTED AT [address] (test vaqn=5173) [facility] [address] BASIC METABOLIC [id number] 09:02:00 Test Item Value Reference Range Comments SODIUM (BEAKER) (test 135 meq/L 136-145 bfik=226) POTASSIUM (BEAKER) (test 3.4 meq/L 3.5-5.1 wkir=260) CHLORIDE (BEAKER) (test 89 meq/L 98-107 yvzm=918) CO2 (BEAKER) (test 43 meq/L 22-29 stmj=353) BLOOD UREA NITROGEN 15 mg/dL 7-21 (BEAKER) (test tyuf=249) CREATININE (BEAKER) (test 0.48 mg/dL 0.57-1.25 aduf=284) GLUCOSE RANDOM (BEAKER) 77 mg/dL 70-105 (test fcor=189) CALCIUM (BEAKER) (test 8.1 mg/dL 8.4-10.2 zqws=449) EGFR (BEAKER) (test 131 mL/min/1.73 sq m ESTIMATED GFR IS NOT uqvy=0498) ACCURATE CREATININE CLEARANCE IN PREDICTING GLOMERULAR FILTRATION RATE. ESTIMATED GFR IS NOT APPLICABLE FOR DIALYSIS PATIENTS. POCT-GLUCOSE [id number] 06:50:00 Test Item Value Reference Range Comments POC-GLUCOSE METER (BEAKER) 92 mg/dL 70-110 TESTED AT [facility] [address] [facility] (test zgej=1469) [facility] [address] CBC W/PLT COUNT & AUTO [id number] 04:12:00 Test Item Value Reference Range Comments WHITE BLOOD CELL COUNT (BEAKER) (test voia=079) 11.7 K/ L 3.5-10.5 RED BLOOD CELL COUNT (BEAKER) (test xykr=926) 3.67 M/ L 3.93-5.22 HEMOGLOBIN (BEAKER) (test gxpw=430) 9.9 GM/DL 11.2-15.7 HEMATOCRIT (BEAKER) (test vcxb=320) 32.5 % 34.1-44.9 MEAN CORPUSCULAR VOLUME (BEAKER) (test svkk=015) 88.6 fL 79.4-94.8 MEAN CORPUSCULAR HEMOGLOBIN (BEAKER) (test 27.0 pg 25.6-32.2 hqoq=965) MEAN CORPUSCULAR HEMOGLOBIN CONC (BEAKER) (test 30.5 GM/DL 32.2-35.5 qpzl=947) RED CELL DISTRIBUTION WIDTH (BEAKER) (test 15.2 % 11.7-14.4 kosp=597) PLATELET COUNT (BEAKER) (test rciz=321) 263 K/CU MM 150-450 MEAN PLATELET VOLUME (BEAKER) (test scbg=729) 10.4 fL 9.4-12.3 NUCLEATED RED BLOOD CELLS (BEAKER) (test 0 /100 WBC 0-0 rykz=393) NEUTROPHILS RELATIVE PERCENT (BEAKER) (test 78 % opfi=858) LYMPHOCYTES RELATIVE PERCENT (BEAKER) (test 11 % umiv=449) MONOCYTES RELATIVE PERCENT (BEAKER) (test 10 % wmnh=987) EOSINOPHILS RELATIVE PERCENT (BEAKER) (test 0 % hnax=599) BASOPHILS RELATIVE PERCENT (BEAKER) (test 0 % axdi=455) NEUTROPHILS ABSOLUTE COUNT (BEAKER) (test 9.19 K/ L 1.56-6.13 gkfk=724) LYMPHOCYTES ABSOLUTE COUNT (BEAKER) (test 1.26 K/ L 1.18-3.74 apap=965) MONOCYTES ABSOLUTE COUNT (BEAKER) (test 1.15 K/ L 0.24-0.36 zmqv=560) EOSINOPHILS ABSOLUTE COUNT (BEAKER) (test 0.02 K/ L 0.04-0.36 gyom=771) BASOPHILS ABSOLUTE COUNT (BEAKER) (test 0.01 K/ L 0.01-0.08 kmfe=151) IMMATURE GRANULOCYTES-RELATIVE PERCENT (BEAKER) 1 % 0-1 (test xthw=2444) POCT-GLUCOSE [id number] 21:22:00 Test Item Value Reference Range Comments POC-GLUCOSE METER (BEAKER) 198 mg/dL 70-110 TESTED AT [address] (test ikit=6223) [place] [address] POCT-GLUCOSE [id number] 16:57:00 Test Item Value Reference Range Comments POC-GLUCOSE METER (BEAKER) 297 mg/dL 70-110 TESTED AT [facility] [address] [facility] (test alwa=7058) [place] [id number] SPUTUM CULTURE + GRAM [id number] 13:17:00 Test Item Value Reference Range Comments CULTURE (BEAKER) (test 4+ Normal respiratory paul tfan=1437) present GRAM STAIN RESULT (BEAKER) 2+ WBCs (test cqap=1211) GRAM STAIN RESULT (BEAKER) 0-5 epithelial cells (test cymn=26517) GRAM STAIN RESULT (BEAKER) 4+ gram negative rods (test wrba=37035) GRAM STAIN RESULT (BEAKER) 4+ gram positive cocci in (test ztna=858683) clusters GRAM STAIN RESULT (BEAKER) 1+ yeast with pseudohyphae (test qeio=571600) CBC W/PLT COUNT & AUTO [id number] 12:07:00 Test Item Value Reference Range Comments WHITE BLOOD CELL COUNT (BEAKER) (test gcbo=597) 16.8 K/ L 3.5-10.5 RED BLOOD CELL COUNT (BEAKER) (test kmzt=213) 4.39 M/ L 3.93-5.22 HEMOGLOBIN (BEAKER) (test rshj=081) 12.0 GM/DL 11.2-15.7 HEMATOCRIT (BEAKER) (test dfny=126) 39.3 % 34.1-44.9 MEAN CORPUSCULAR VOLUME (BEAKER) (test srnv=602) 89.5 fL 79.4-94.8 MEAN CORPUSCULAR HEMOGLOBIN (BEAKER) (test 27.3 pg 25.6-32.2 kxbb=427) MEAN CORPUSCULAR HEMOGLOBIN CONC (BEAKER) (test 30.5 GM/DL 32.2-35.5 rrbi=407) RED CELL DISTRIBUTION WIDTH (BEAKER) (test 15.3 % 11.7-14.4 tavs=503) PLATELET COUNT (BEAKER) (test buea=277) 312 K/CU MM 150-450 MEAN PLATELET VOLUME (BEAKER) (test bdrl=471) 10.9 fL 9.4-12.3 NUCLEATED RED BLOOD CELLS (BEAKER) (test 0 /100 WBC 0-0 opwa=508) NEUTROPHILS RELATIVE PERCENT (BEAKER) (test 89 % lpjh=415) LYMPHOCYTES RELATIVE PERCENT (BEAKER) (test 3 % mmxt=901) MONOCYTES RELATIVE PERCENT (BEAKER) (test 7 % iriu=273) EOSINOPHILS RELATIVE PERCENT (BEAKER) (test 0 % rdwm=122) BASOPHILS RELATIVE PERCENT (BEAKER) (test 0 % boxp=387) NEUTROPHILS ABSOLUTE COUNT (BEAKER) (test 15.01 K/ L 1.56-6.13 qrgh=523) LYMPHOCYTES ABSOLUTE COUNT (BEAKER) (test 0.56 K/ L 1.18-3.74 hsto=626) MONOCYTES ABSOLUTE COUNT (BEAKER) (test 1.11 K/ L 0.24-0.36 amza=480) EOSINOPHILS ABSOLUTE COUNT (BEAKER) (test 0.00 K/ L 0.04-0.36 uini=429) BASOPHILS ABSOLUTE COUNT (BEAKER) (test 0.02 K/ L 0.01-0.08 dape=843) IMMATURE GRANULOCYTES-RELATIVE PERCENT (BEAKER) 1 % 0-1 (test wqqn=5852) POCT-GLUCOSE [id number] 11:54:00 Test Item Value Reference Range Comments POC-GLUCOSE METER (BEAKER) 179 mg/dL 70-110 TESTED AT [address] (test hnlo=5671) [place] [address] BASIC METABOLIC [id number] 04:52:00 Test Item Value Reference Range Comments SODIUM (BEAKER) (test 137 meq/L 136-145 kqvn=416) POTASSIUM (BEAKER) (test 3.8 meq/L 3.5-5.1 shwm=264) CHLORIDE (BEAKER) (test 93 meq/L 98-107 xakl=477) CO2 (BEAKER) (test 36 meq/L 22-29 jrvd=058) BLOOD UREA NITROGEN 17 mg/dL 7-21 (BEAKER) (test iiun=724) CREATININE (BEAKER) (test 0.54 mg/dL 0.57-1.25 ehrc=612) GLUCOSE RANDOM (BEAKER) 103 mg/dL 70-105 (test efmm=027) CALCIUM (BEAKER) (test 8.5 mg/dL 8.4-10.2 uilp=853) EGFR (BEAKER) (test 115 mL/min/1.73 sq m ESTIMATED GFR IS NOT xwsb=3820) ACCURATE CREATININE CLEARANCE IN PREDICTING GLOMERULAR FILTRATION RATE. ESTIMATED GFR IS NOT APPLICABLE FOR DIALYSIS PATIENTS. POCT-GLUCOSE [id number] 21:10:00 Test Item Value Reference Range Comments POC-GLUCOSE METER (BEAKER) 289 mg/dL 70-110 TESTED AT [address] (test eric=1479) [place] [address] CBC W/PLT COUNT & AUTO [id number] 15:29:00 Test Item Value Reference Range Comments WHITE BLOOD CELL COUNT (BEAKER) (test voqp=468) 20.2 K/ L 3.5-10.5 RED BLOOD CELL COUNT (BEAKER) (test ggcc=434) 4.70 M/ L 3.93-5.22 HEMOGLOBIN (BEAKER) (test ltaf=882) 12.6 GM/DL 11.2-15.7 HEMATOCRIT (BEAKER) (test fuxj=399) 43.3 % 34.1-44.9 MEAN CORPUSCULAR VOLUME (BEAKER) (test njmg=857) 92.1 fL 79.4-94.8 MEAN CORPUSCULAR HEMOGLOBIN (BEAKER) (test 26.8 pg 25.6-32.2 hodr=968) MEAN CORPUSCULAR HEMOGLOBIN CONC (BEAKER) (test 29.1 GM/DL 32.2-35.5 dnik=994) RED CELL DISTRIBUTION WIDTH (BEAKER) (test 15.2 % 11.7-14.4 ggom=435) PLATELET COUNT (BEAKER) (test zgkr=847) 301 K/CU MM 150-450 MEAN PLATELET VOLUME (BEAKER) (test dhhp=705) 11.0 fL 9.4-12.3 NUCLEATED RED BLOOD CELLS (BEAKER) (test 0 /100 WBC 0-0 uccu=993) NEUTROPHILS RELATIVE PERCENT (BEAKER) (test 95 % pold=729) LYMPHOCYTES RELATIVE PERCENT (BEAKER) (test 2 % qsxj=466) MONOCYTES RELATIVE PERCENT (BEAKER) (test 2 % cmji=516) EOSINOPHILS RELATIVE PERCENT (BEAKER) (test 0 % agqc=435) BASOPHILS RELATIVE PERCENT (BEAKER) (test 0 % xyqo=621) NEUTROPHILS ABSOLUTE COUNT (BEAKER) (test 19.18 K/ L 1.56-6.13 dfkd=702) LYMPHOCYTES ABSOLUTE COUNT (BEAKER) (test 0.40 K/ L 1.18-3.74 sajm=513) MONOCYTES ABSOLUTE COUNT (BEAKER) (test 0.37 K/ L 0.24-0.36 enqj=496) EOSINOPHILS ABSOLUTE COUNT (BEAKER) (test 0.00 K/ L 0.04-0.36 tqhg=567) BASOPHILS ABSOLUTE COUNT (BEAKER) (test 0.04 K/ L 0.01-0.08 ylgn=725) IMMATURE GRANULOCYTES-RELATIVE PERCENT (BEAKER) 1 % 0-1 (test pagp=7665) POCT-GLUCOSE [id number] 13:19:00 Test Item Value Reference Range Comments POC-GLUCOSE METER (BEAKER) 198 mg/dL 70-110 TESTED AT [facility] [address] (test nzjz=6762) [facility] [address] BODY FLUID CULTURE + GRAM [id number] 11:22:00 Test Item Value Reference Range Comments CULTURE (BEAKER) (test mdgf=2294) No growth GRAM STAIN RESULT (BEAKER) (test <1+ WBCs qkez=1178) GRAM STAIN RESULT (BEAKER) (test No organisms seen tvkf=88488) RAD, CHEST, 1 VIEW, NON [id number] 08:47:00Reason for exam:->sobShould this be performed at [...] MDReport Verified Date/Time: 02/11/2017 08:47:53 Reading Location: [address] Neuro Reading Room BASIC METABOLIC [id number] 07:36:00 Test Item Value Reference Range Comments SODIUM (BEAKER) (test 138 meq/L 136-145 xjln=133) POTASSIUM (BEAKER) (test 3.7 meq/L 3.5-5.1 jeyb=591) CHLORIDE (BEAKER) (test 96 meq/L 98-107 ykwv=794) CO2 (BEAKER) (test 33 meq/L 22-29 kglr=982) BLOOD UREA NITROGEN 18 mg/dL 7-21 (BEAKER) (test sucy=365) CREATININE (BEAKER) (test 0.61 mg/dL 0.57-1.25 bqoj=940) GLUCOSE RANDOM (BEAKER) 247 mg/dL 70-105 (test mkaa=050) CALCIUM (BEAKER) (test 8.4 mg/dL 8.4-10.2 rvpa=551) EGFR (BEAKER) (test 100 mL/min/1.73 sq m ESTIMATED GFR IS NOT myey=6972) ACCURATE CREATININE CLEARANCE IN PREDICTING GLOMERULAR FILTRATION RATE. ESTIMATED GFR IS NOT APPLICABLE FOR DIALYSIS PATIENTS. POCT-GLUCOSE [id number] 22:00:00 Test Item Value Reference Range Comments POC-GLUCOSE METER (BEAKER) 366 mg/dL 70-110 Will Repeat Test/TESTED AT (test lbfx=2872) [facility] [address] [facility] [address] (MANUAL DIFFERENTIAL)2017-02-10 19:58:00 Test Item Value Reference Range Comments NEUTROPHILS - REL (DIFF) (BEAKER) (test 89 % bbzx=5429) LYMPHOCYTES - REL (DIFF) (BEAKER) (test 2 % glza=3746) MONOCYTES - REL (DIFF) (BEAKER) (test ddke=4915) 6 % BANDS - REL (DIFF) (BEAKER) (test dpit=0966) 3 % 0-10 NEUTROPHILS - ABS (DIFF) (BEAKER) (test 24.21 K/ L 1.80-8.00 sjdg=0581) LYMPHOCYTES - ABS (DIFF) (BEAKER) (test 0.54 K/ L 1.48-4.50 mgoz=1891) MONOCYTES - ABS (DIFF) (BEAKER) (test ycty=8444) 1.63 K/ L 0.00-1.30 BANDS-ABS (DIFF) (BEAKER) (test ycyl=3423) 0.8 K/ L 0.0-0.8 TOTAL COUNTED (BEAKER) (test cxyg=3644) 100 BANDS + SEGMENTED NEUTROPHILS (BEAKER) (test 25.02 yocl=7096) WBC MORPHOLOGY (BEAKER) (test xpkc=150) Normal PLT MORPHOLOGY (BEAKER) (test mbgb=976) Normal RBC MORPHOLOGY (BEAKER) (test oeht=584) Normal CBC W/PLT COUNT & AUTO [id number] 19:57:00 Test Item Value Reference Range Comments WHITE BLOOD CELL COUNT (BEAKER) (test vwsa=730) 27.2 K/ L 3.5-10.5 RED BLOOD CELL COUNT (BEAKER) (test ebpn=378) 4.46 M/ L 3.93-5.22 HEMOGLOBIN (BEAKER) (test ohem=015) 12.1 GM/DL 11.2-15.7 HEMATOCRIT (BEAKER) (test pdyl=143) 42.9 % 34.1-44.9 MEAN CORPUSCULAR VOLUME (BEAKER) (test qryc=404) 96.2 fL 79.4-94.8 MEAN CORPUSCULAR HEMOGLOBIN (BEAKER) (test 27.1 pg 25.6-32.2 iorl=533) MEAN CORPUSCULAR HEMOGLOBIN CONC (BEAKER) (test 28.2 GM/DL 32.2-35.5 yimn=184) RED CELL DISTRIBUTION WIDTH (BEAKER) (test 15.6 % 11.7-14.4 oadk=650) PLATELET COUNT (BEAKER) (test tfkr=080) 318 K/CU MM 150-450 MEAN PLATELET VOLUME (BEAKER) (test kmdb=299) 11.0 fL 9.4-12.3 NUCLEATED RED BLOOD CELLS (BEAKER) (test 0 /100 WBC 0-0 ahec=384) IMMATURE GRANULOCYTES-RELATIVE PERCENT (BEAKER) 1 % 0-1 (test ldnh=2883) POCT-GLUCOSE [id number] 17:32:00 Test Item Value Reference Range Comments POC-GLUCOSE METER (BEAKER) 213 mg/dL 70-110 TESTED AT [place] [id number] [facility] (test xzdm=0740) [facility] [address] BLOOD GAS, [id number] 14:31:00 Test Item Value Reference Range Comments PH ARTERIAL (BEAKER) (test objn=019) 7.31 7.35-7.45 PCO2 ARTERIAL (BEAKER) (test gtxu=223) 70 mmHg 35-45 PO2 ARTERIAL (BEAKER) (test eypi=576) 50 mmHg 80-90 O2 SATURATION ARTERIAL (BEAKER) (test dsrk=033) 78.5 % 96.0-97.0 HCO3 ARTERIAL (BEAKER) (test nplb=580) 34 mmol/L 21-29 BASE EXCESS ARTERIAL (BEAKER) (test vatq=078) 6.2 mmol/L -2.0-3.0 PATIENT TEMPERATURE (BEAKER) (test jsqd=3258) 37.5 C FIO2 (BEAKER) (test aesx=1653) 21.0 % BLOOD GAS, [id number] 12:37:00 Test Item Value Reference Range Comments PH ARTERIAL (BEAKER) (test ydxk=054) 7.27 7.35-7.45 PCO2 ARTERIAL (BEAKER) (test zzio=266) 76 mmHg 35-45 PO2 ARTERIAL (BEAKER) (test llvg=059) 123 mmHg 80-90 O2 SATURATION ARTERIAL (BEAKER) (test cgjp=984) 97.7 % 96.0-97.0 HCO3 ARTERIAL (BEAKER) (test pihv=729) 34 mmol/L 21-29 BASE EXCESS ARTERIAL (BEAKER) (test yfnw=462) 5.2 mmol/L -2.0-3.0 PATIENT TEMPERATURE (BEAKER) (test gzwf=2200) 37.5 C FIO2 (BEAKER) (test rhqe=1150) 36.0 % LACTIC ACID, VENOUS, WHOLE [id number] 10:45:00 Test Item Value Reference Range Comments LACTATE BLOOD VENOUS (2) (BEAKER) (test 1.8 mmol/L 0.5-2.2 ihzo=9028) Effective 07/15/2015: Units/Reference Range ChangeNew: 0.5-2.2 mmol/L Previous: 5 -20 mg/dLBLOOD GAS, [id number] 10:40:00 Test Item Value Reference Range Comments PH ARTERIAL (BEAKER) (test nuwq=067) 7.19 7.35-7.45 PCO2 ARTERIAL (BEAKER) (test nvvc=806) 93 mmHg 35-45 PO2 ARTERIAL (BEAKER) (test yhbk=611) 56 mmHg 80-90 O2 SATURATION ARTERIAL (BEAKER) (test pzfk=650) 78.6 % 96.0-97.0 HCO3 ARTERIAL (BEAKER) (test mhah=533) 34 mmol/L 21-29 BASE EXCESS ARTERIAL (BEAKER) (test pyld=440) 3.8 mmol/L -2.0-3.0 PATIENT TEMPERATURE (BEAKER) (test tdfo=5747) 37.5 C FIO2 (BEAKER) (test pjbs=8269) 21.0 % BLOOD [id number] 10:00:00 Test Item Value Reference Range Comments CULTURE (BEAKER) (test ipyk=7629) No growth in 5 days POCT-GLUCOSE [id number] 08:06:00 Test Item Value Reference Range Comments POC-GLUCOSE METER (BEAKER) 297 mg/dL 70-110 TESTED AT [address] (test qflh=5530) [place] [id number] BASIC METABOLIC [id number] 05:28:00 Test Item Value Reference Range Comments SODIUM (BEAKER) (test 136 meq/L 136-145 wqzh=653) POTASSIUM (BEAKER) (test 4.4 meq/L 3.5-5.1 zujn=502) CHLORIDE (BEAKER) (test 98 meq/L 98-107 wgqs=547) CO2 (BEAKER) (test 30 meq/L 22-29 kxih=644) BLOOD UREA NITROGEN 23 mg/dL 7-21 (BEAKER) (test tnfx=089) CREATININE (BEAKER) (test 0.82 mg/dL 0.57-1.25 suyk=967) GLUCOSE RANDOM (BEAKER) 388 mg/dL 70-105 (test ppxa=663) CALCIUM (BEAKER) (test 8.6 mg/dL 8.4-10.2 vjrj=193) EGFR (BEAKER) (test 71 mL/min/1.73 sq m ESTIMATED GFR IS NOT olnq=4221) ACCURATE CREATININE CLEARANCE IN PREDICTING GLOMERULAR FILTRATION RATE. ESTIMATED GFR IS NOT APPLICABLE FOR DIALYSIS PATIENTS. BLOOD [id number] 05:02:00 Test Item Value Reference Range Comments CULTURE (BEAKER) (test hwiu=5854) No growth in 5 days POCT-GLUCOSE [id number] 21:15:00 Test Item Value Reference Range Comments POC-GLUCOSE METER (BEAKER) 174 mg/dL 70-110 TESTED AT [place] [id number] [facility] (test muhy=6650) [place] [id number] POCT-GLUCOSE [id number] 18:38:00 Test Item Value Reference Range Comments POC-GLUCOSE METER (BEAKER) 202 mg/dL 70-110 TESTED AT [address] (test srrr=4904) [facility] [address] RAD, CHEST, 1 VIEW, NON [id number] 15:27:00Reason for exam:->CoughShould this be performed at [...] Valdovinos MDReport Verified Date/Time:02/09/2017 15:27:55 Reading Location: [facility] Radiology Reading Room POCT-GLUCOSE [id number] 12:21:00 Test Item Value Reference Range Comments POC-GLUCOSE METER (BEAKER) 185 mg/dL 70-110 TESTED AT [facility] [address] [facility] (test ewhh=6956) [facility] [address] POCT-GLUCOSE [id number] 07:52:00 Test Item Value Reference Range Comments POC-GLUCOSE METER (BEAKER) 176 mg/dL 70-110 TESTED AT [address] (test uhhb=2283) [place] [id number] BASIC METABOLIC [id number] 05:59:00 Test Item Value Reference Range Comments SODIUM (BEAKER) (test 137 meq/L 136-145 lrpd=014) POTASSIUM (BEAKER) (test 4.4 meq/L 3.5-5.1 gpxt=109) CHLORIDE (BEAKER) (test 93 meq/L 98-107 jspc=809) CO2 (BEAKER) (test 40 meq/L 22-29 bxdd=387) BLOOD UREA NITROGEN 16 mg/dL 7-21 (BEAKER) (test zlxl=385) CREATININE (BEAKER) (test 0.50 mg/dL 0.57-1.25 tkrq=597) GLUCOSE RANDOM (BEAKER) 181 mg/dL 70-105 (test fiiq=488) CALCIUM (BEAKER) (test 8.1 mg/dL 8.4-10.2 rqio=252) EGFR (BEAKER) (test 125 mL/min/1.73 sq m ESTIMATED GFR IS NOT ipbs=4721) ACCURATE CREATININE CLEARANCE IN PREDICTING GLOMERULAR FILTRATION RATE. ESTIMATED GFR IS NOT APPLICABLE FOR DIALYSIS PATIENTS. [id number] 05:04:00 Test Item Value Reference Range Comments MAGNESIUM (BEAKER) (test rvoz=767) 2.1 mg/dL 1.6-2.6 CBC W/PLT COUNT & AUTO [id number] 04:50:00 Test Item Value Reference Range Comments WHITE BLOOD CELL COUNT (BEAKER) (test ihne=076) 10.6 K/ L 3.5-10.5 RED BLOOD CELL COUNT (BEAKER) (test zhtr=734) 3.44 M/ L 3.93-5.22 HEMOGLOBIN (BEAKER) (test vfbi=899) 9.3 GM/DL 11.2-15.7 HEMATOCRIT (BEAKER) (test oolc=186) 31.9 % 34.1-44.9 MEAN CORPUSCULAR VOLUME (BEAKER) (test nait=028) 92.7 fL 79.4-94.8 MEAN CORPUSCULAR HEMOGLOBIN (BEAKER) (test 27.0 pg 25.6-32.2 aqeh=189) MEAN CORPUSCULAR HEMOGLOBIN CONC (BEAKER) (test 29.2 GM/DL 32.2-35.5 extm=694) RED CELL DISTRIBUTION WIDTH (BEAKER) (test 15.4 % 11.7-14.4 lqjk=419) PLATELET COUNT (BEAKER) (test fgki=196) 156 K/CU MM 150-450 MEAN PLATELET VOLUME (BEAKER) (test jdaz=698) 12.0 fL 9.4-12.3 NUCLEATED RED BLOOD CELLS (BEAKER) (test 0 /100 WBC 0-0 obge=935) NEUTROPHILS RELATIVE PERCENT (BEAKER) (test 90 % zlge=832) LYMPHOCYTES RELATIVE PERCENT (BEAKER) (test 5 % xlue=474) MONOCYTES RELATIVE PERCENT (BEAKER) (test 4 % pzat=759) EOSINOPHILS RELATIVE PERCENT (BEAKER) (test 0 % qefo=285) BASOPHILS RELATIVE PERCENT (BEAKER) (test 0 % iffi=056) NEUTROPHILS ABSOLUTE COUNT (BEAKER) (test 9.52 K/ L 1.56-6.13 hhsj=983) LYMPHOCYTES ABSOLUTE COUNT (BEAKER) (test 0.48 K/ L 1.18-3.74 icqw=049) MONOCYTES ABSOLUTE COUNT (BEAKER) (test 0.46 K/ L 0.24-0.36 xjrz=888) EOSINOPHILS ABSOLUTE COUNT (BEAKER) (test 0.00 K/ L 0.04-0.36 gcsj=592) BASOPHILS ABSOLUTE COUNT (BEAKER) (test 0.01 K/ L 0.01-0.08 iaix=356) IMMATURE GRANULOCYTES-RELATIVE PERCENT (BEAKER) 1 % 0-1 (test kxpu=5479) POCT-GLUCOSE [id number] 20:33:00 Test Item Value Reference Range Comments POC-GLUCOSE METER (BEAKER) 200 mg/dL 70-110 TESTED AT [address] (test juwx=5369) [place] [address] POCT-GLUCOSE [id number] 19:24:00 Test Item Value Reference Range Comments POC-GLUCOSE METER (BEAKER) 237 mg/dL 70-110 TESTED AT [address] (test cbmy=5618) [place] [address] POCT-GLUCOSE [id number] 11:09:00 Test Item Value Reference Range Comments POC-GLUCOSE METER (BEAKER) 301 mg/dL 70-110 TESTED AT [address] (test xmzk=3049) [place] [address] HEMOGLOBIN [id number] 10:56:00 Test Item Value Reference Range Comments HEMOGLOBIN A1C (BEAKER) (test mhjs=291) 5.8 % 4.3-6.1 POCT-GLUCOSE [id number] 07:55:00 Test Item Value Reference Range Comments POC-GLUCOSE METER (BEAKER) 216 mg/dL 70-110 TESTED AT [address] (test xuwc=7248) [place] [address] HEPATITIS C PCR, [id number] 05:55:00 Test Item Value Reference Range Comments HCV RESULT COMPONENT (BEAKER) HCV RNA not detected HCV RNA not detected (test iosj=3682) This test uses a Real-Time Polymerase Chain Reaction (RT-PCR) methodology and was performed using ANN Ampliprep/ANN TaqMan HCV test kit version 2.0 ( [employer]).Reportable range for this assay is 15 - 100,000, 000 IU per mL (1.18 - 8.00 Log IU/mL).This test uses a Real-Time Polymerase Chain Reaction (RT-PCR) methodology and was performed using ANN Ampliprep/ ANN TaqMan HCV test kit version 2.0 ([employer]) .Reportable range for this assay is 15 - 100,000,000 IU per mL (1.18 - 8.00 Log IU/mL).[id number] 05:50:00 Test Item Value Reference Range Comments MAGNESIUM (BEAKER) (test owcf=540) 2.0 mg/dL 1.6-2.6 COMPREHENSIVE METABOLIC [id number] 05:50:00 Test Item Value Reference Range Comments TOTAL PROTEIN (BEAKER) 6.0 gm/dL 6.0-8.3 (test occq=430) ALBUMIN (BEAKER) (test 3.2 g/dL 3.5-5.0 pmfb=8922) ALKALINE PHOSPHATASE 97 U/L 40-150 (BEAKER) (test gnne=464) BILIRUBIN TOTAL (BEAKER) 0.3 mg/dL 0.2-1.2 (test rxit=532) SODIUM (BEAKER) (test 139 meq/L 136-145 qqiu=043) POTASSIUM (BEAKER) (test 4.7 meq/L 3.5-5.1 yndm=514) CHLORIDE (BEAKER) (test 96 meq/L 98-107 bqim=190) CO2 (BEAKER) (test 37 meq/L 22-29 skbs=549) BLOOD UREA NITROGEN 12 mg/dL 7-21 (BEAKER) (test kasv=854) CREATININE (BEAKER) (test 0.54 mg/dL 0.57-1.25 mfrx=892) GLUCOSE RANDOM (BEAKER) 172 mg/dL 70-105 (test gpfk=495) CALCIUM (BEAKER) (test 8.7 mg/dL 8.4-10.2 vsya=440) AST (SGOT) (BEAKER) (test 33 U/L 5-34 pzhp=623) ALT (SGPT) (BEAKER) (test 33 U/L 6-55 tsme=027) EGFR (BEAKER) (test 115 mL/min/1.73 sq ESTIMATED GFR IS NOT ehao=7567) m ACCURATE CREATININE CLEARANCE IN PREDICTING GLOMERULAR FILTRATION RATE. ESTIMATED GFR IS NOT APPLICABLE FOR DIALYSIS PATIENTS. CBC W/PLT COUNT & AUTO [id number] 05:32:00 Test Item Value Reference Range Comments WHITE BLOOD CELL COUNT (BEAKER) (test cnzr=991) 17.0 K/ L 3.5-10.5 RED BLOOD CELL COUNT (BEAKER) (test qpeh=178) 3.42 M/ L 3.93-5.22 HEMOGLOBIN (BEAKER) (test klhr=206) 9.4 GM/DL 11.2-15.7 HEMATOCRIT (BEAKER) (test hayw=887) 32.0 % 34.1-44.9 MEAN CORPUSCULAR VOLUME (BEAKER) (test cfqb=446) 93.6 fL 79.4-94.8 MEAN CORPUSCULAR HEMOGLOBIN (BEAKER) (test 27.5 pg 25.6-32.2 wfee=185) MEAN CORPUSCULAR HEMOGLOBIN CONC (BEAKER) (test 29.4 GM/DL 32.2-35.5 tpzn=938) RED CELL DISTRIBUTION WIDTH (BEAKER) (test 15.6 % 11.7-14.4 imvn=746) PLATELET COUNT (BEAKER) (test kdul=801) 169 K/CU MM 150-450 MEAN PLATELET VOLUME (BEAKER) (test drtf=681) 11.0 fL 9.4-12.3 NUCLEATED RED BLOOD CELLS (BEAKER) (test 0 /100 WBC 0-0 xuba=116) NEUTROPHILS RELATIVE PERCENT (BEAKER) (test 91 % zfgc=090) LYMPHOCYTES RELATIVE PERCENT (BEAKER) (test 4 % czhu=240) MONOCYTES RELATIVE PERCENT (BEAKER) (test 5 % pncv=867) EOSINOPHILS RELATIVE PERCENT (BEAKER) (test 0 % osgy=230) BASOPHILS RELATIVE PERCENT (BEAKER) (test 0 % kohi=646) NEUTROPHILS ABSOLUTE COUNT (BEAKER) (test 15.41 K/ L 1.56-6.13 uaqz=960) LYMPHOCYTES ABSOLUTE COUNT (BEAKER) (test 0.60 K/ L 1.18-3.74 ntqn=072) MONOCYTES ABSOLUTE COUNT (BEAKER) (test 0.78 K/ L 0.24-0.36 bkkw=231) EOSINOPHILS ABSOLUTE COUNT (BEAKER) (test 0.00 K/ L 0.04-0.36 gxux=476) BASOPHILS ABSOLUTE COUNT (BEAKER) (test 0.01 K/ L 0.01-0.08 ysmb=259) IMMATURE GRANULOCYTES-RELATIVE PERCENT (BEAKER) 1 % 0-1 (test wuze=0391) POCT-GLUCOSE [id number] 22:20:00 Test Item Value Reference Range Comments POC-GLUCOSE METER (BEAKER) 323 mg/dL 70-110 Notified GUS PRATT/TESTED AT [facility] (test yvot=5259) [address] [facility] [address] BODY FLUID CELL COUNT WITH [id number] 21:00:00 Test Item Value Reference Range Comments APPEARANCE FLUID (BEAKER) (test qcev=853) Slightly Cloudy Clear COLOR FLUID (BEAKER) (test ishr=606) Yellow Colorless, Straw RBC FLUID (BEAKER) (test yyxv=522) 1000 /cu mm <=1 ADJUSTED WBC FLUID (BEAKER) (test 620 /cu mm <=5 ofyz=8959) LINING CELLS (BEAKER) (test efvs=9425) 74 /cu mm <=1 NEUTROPHILS FLUID (BEAKER) (test sycp=0596) 21 % LYMPHS FLUID (BEAKER) (test hvop=808) 30 % MONO/MACROPHAGE FLUID (BEAKER) (test 49 % qukg=886) EOSINOPHILS FLUID (BEAKER) (test edlp=577) 0 % BASO FLUID (BEAKER) (test efit=537) 0 % CONTAINER BODY FLUID (BEAKER) (test EDTA Tube mxfb=2644) POCT-GLUCOSE [id number] 20:51:00 Test Item Value Reference Range Comments POC-GLUCOSE METER (BEAKER) 343 mg/dL 70-110 Notified GUS PRATT/TESTED AT [facility] (test blpt=4438) [address] [facility] [address] RAD, CHEST, 1 VIEW, NON [id number] 20:12:00Reason for exam:->right pleural effusion s/p thoracentesis [...] MDReport Verified Date/Time: 02/07/2017 20:12:46 Reading Location: [address] Reading Room LACTATE DEHYDROGENASE (LDH), BODY [id number] 19:12:00 Test Item Value Reference Range Comments LACTATE DEHYDROGENASE FLUID (BEAKER) < U/L Light's criteria identifies (test fdmi=658) effusions if one or more are pre Absence of reference range indicates that normals have not been defined.Assay performance has not been validated for this type of specimen.PROTEIN, BODY [id number] 19:12:00 Test Item Value Reference Range Comments PROTEIN FLUID (BEAKER) (test 1.8 g/dL Light's criteria identifies lmch=034) effusions if one or more are pre Absence of reference range indicates that normals have not been defined.Assay performance has not been validated for this type of specimen.POCT-GLUCOSE [id number] 18:28:00 Test Item Value Reference Range Comments POC-GLUCOSE METER (BEAKER) 272 mg/dL 70-110 TESTED AT [address] (test woqn=0486) [place] [address] U/S, [id number] 18:23:00Laterality?->RightReason for exam:-> Diagnostic and therapeutic thorcaentesisFINAL [...] was prepped and anesthetized and a 5 Mosotho needle/catheter was inserted into the right pleural space. Four 25 cc of yellowish fluid were removed. A chest x-ray was ordered. CONCLUSION: Ultrasound-guided thoracentesis Signed: Dell Pacheco [facility] Verified Date/Time: 02/07/2017 18:23:13 Reading Location : [facility] [id number] Ultrasound Reading Room URINE [id number] 15:17:00 Test Item Value Reference Range Comments CULTURE (BEAKER) (test >100,000 col/mL Susan glabrata fqyl=3055) LACTATE DEHYDROGENASE (LDH)2017-02-07 14:18:00 Test Item Value Reference Range Comments LACTATE DEHYDROGENASE (BEAKER) (test ycxs=650) 296 U/L 125-220 [id number] 11:54:00 Test Item Value Reference Range Comments PROTIME (BEAKER) (test evoi=262) 13.4 seconds 11.7-14.7 INR (BEAKER) (test azxy=110) 1.0 <=5.9 PARTIAL THROMBOPLASTIN TIME (BEAKER) (test 25.9 seconds 22.5-36.0 shqv=365) RECOMMENDED COUMADIN/WARFARIN INR THERAPY RANGESSTANDARD DOSE: 2.0 - 3.0 Includes: PROPHYLAXIS forvenous thrombosis, systemic embolization; TREATMENT for venous thrombosis and/or pulmonary embolus.HIGH RISK: Target INR is 2.5-3.5 for patients with mechanical heart valves.[id number] 05:39:00 Test Item Value Reference Range Comments MAGNESIUM (BEAKER) (test cwgw=522) 1.9 mg/dL 1.6-2.6 COMPREHENSIVE METABOLIC [id number] 05:39:00 Test Item Value Reference Range Comments TOTAL PROTEIN (BEAKER) 6.6 gm/dL 6.0-8.3 (test tdzz=565) ALBUMIN (BEAKER) (test 3.5 g/dL 3.5-5.0 dvfm=5416) ALKALINE PHOSPHATASE 111 U/L 40-150 (BEAKER) (test wesj=625) BILIRUBIN TOTAL (BEAKER) < mg/dL 0.2-1.2 (test rhuk=764) SODIUM (BEAKER) (test 137 meq/L 136-145 purb=178) POTASSIUM (BEAKER) (test 3.8 meq/L 3.5-5.1 ghpm=143) CHLORIDE (BEAKER) (test 99 meq/L 98-107 vjbd=061) CO2 (BEAKER) (test 31 meq/L 22-29 ypad=500) BLOOD UREA NITROGEN 11 mg/dL 7-21 (BEAKER) (test zodz=542) CREATININE (BEAKER) (test 0.61 mg/dL 0.57-1.25 esbv=574) GLUCOSE RANDOM (BEAKER) 221 mg/dL 70-105 (test kcaf=345) CALCIUM (BEAKER) (test 8.5 mg/dL 8.4-10.2 yobm=819) AST (SGOT) (BEAKER) (test 12 U/L 5-34 adqv=872) ALT (SGPT) (BEAKER) (test 24 U/L 6-55 pybe=238) EGFR (BEAKER) (test 100 mL/min/1.73 sq ESTIMATED GFR IS NOT hvsa=4142) m ACCURATE CREATININE CLEARANCE IN PREDICTING GLOMERULAR FILTRATION RATE. ESTIMATED GFR IS NOT APPLICABLE FOR DIALYSIS PATIENTS. LIPID [id number] 05:39:00 Test Item Value Reference Range Comments TRIGLYCERIDES (BEAKER) (test jkwf=354) 101 mg/dL CHOLESTEROL (BEAKER) (test xdun=020) 134 mg/dL HDL CHOLESTEROL (BEAKER) (test phtj=918) 52 mg/dL LDL CHOLESTEROL CALCULATED (BEAKER) (test 62 mg/dL ivsw=008) Triglyceride Reference Range: Low Risk <150 Borderline 150- 199 High Risk 200-499 Very High Risk >=500Cholesterol Reference Range: Low Risk <200 Borderline 200-239 High Risk > 240HDL Cholesterol Reference Range: Low Risk >=60 High Risk <40LDL Cholesterol Reference Range: Optimal <100 Near Optimal 100-129 Borderline 130-159 High 160-189 Very High >=190CBC W/PLT COUNT & AUTO [id number] 04:29:00 Test Item Value Reference Range Comments WHITE BLOOD CELL COUNT (BEAKER) (test zmaw=237) 11.2 K/ L 3.5-10.5 RED BLOOD CELL COUNT (BEAKER) (test bnek=584) 3.72 M/ L 3.93-5.22 HEMOGLOBIN (BEAKER) (test ylib=632) 10.1 GM/DL 11.2-15.7 HEMATOCRIT (BEAKER) (test huhl=946) 33.8 % 34.1-44.9 MEAN CORPUSCULAR VOLUME (BEAKER) (test ttdn=558) 90.9 fL 79.4-94.8 MEAN CORPUSCULAR HEMOGLOBIN (BEAKER) (test 27.2 pg 25.6-32.2 dyyw=735) MEAN CORPUSCULAR HEMOGLOBIN CONC (BEAKER) (test 29.9 GM/DL 32.2-35.5 ovam=222) RED CELL DISTRIBUTION WIDTH (BEAKER) (test 15.7 % 11.7-14.4 xikn=358) PLATELET COUNT (BEAKER) (test qtub=620) 238 K/CU MM 150-450 MEAN PLATELET VOLUME (BEAKER) (test diqu=832) 11.1 fL 9.4-12.3 NUCLEATED RED BLOOD CELLS (BEAKER) (test 0 /100 WBC 0-0 llxo=355) NEUTROPHILS RELATIVE PERCENT (BEAKER) (test 87 % sbpm=150) LYMPHOCYTES RELATIVE PERCENT (BEAKER) (test 6 % cygz=534) MONOCYTES RELATIVE PERCENT (BEAKER) (test 5 % rhtr=580) EOSINOPHILS RELATIVE PERCENT (BEAKER) (test 0 % htti=073) BASOPHILS RELATIVE PERCENT (BEAKER) (test 0 % qnbe=754) NEUTROPHILS ABSOLUTE COUNT (BEAKER) (test 9.80 K/ L 1.56-6.13 pkcl=736) LYMPHOCYTES ABSOLUTE COUNT (BEAKER) (test 0.72 K/ L 1.18-3.74 xsjj=382) MONOCYTES ABSOLUTE COUNT (BEAKER) (test 0.57 K/ L 0.24-0.36 eeny=082) EOSINOPHILS ABSOLUTE COUNT (BEAKER) (test 0.00 K/ L 0.04-0.36 cfef=274) BASOPHILS ABSOLUTE COUNT (BEAKER) (test 0.00 K/ L 0.01-0.08 ypqk=078) IMMATURE GRANULOCYTES-RELATIVE PERCENT (BEAKER) 1 % 0-1 (test feqk=1821) CT, CHEST, WITHOUT [id number] 23:24:00FINAL REPORT INDICATION: 62-year-old female with hypoxia. [...] Verified Date/Time: 02/06/2017 23: 24:50 Reading Location: [facility] C013 Consult Reading Room TSH/FREE T4 IF [id number] 19:48:00 Test Item Value Reference Range Comments THYROID STIMULATING HORMONE (BEAKER) (test 0.47 uIU/mL 0.35-4.94 lepd=354) RESPIRATORY PANEL [id number] 14:57:00 Test Item Value Reference Range Comments HUMAN METAPNEUMOVIRUS (BEAKER) (test Not detected Not detected, Inconclusive ovxy=3663) RHINOVIRUS (BEAKER) (test tegp=4587) Not detected Not detected, Inconclusive INFLUENZA A (BEAKER) (test Not detected Not detected, Inconclusive duts=2709) INFLUENZA A SUBTYPE H1 (BEAKER) Not detected Not detected, Inconclusive (test oyej=1555) INFLUENZA A SUBTYPE H3 (BEAKER) Not detected Not detected, Inconclusive (test qpgo=9581) INFLUENZA A SUBTYPE H1-2009 (BEAKER) Not detected Not detected, Inconclusive (test sdax=5090) INFLUENZA B (BEAKER) (test Not detected Not detected, Inconclusive ziwv=7209) RESPIRATORY SYNCYTIAL VIRUS (BEAKER) Not detected Not detected, Inconclusive (test pdty=4410) PARAINFLUENZA VIRUS 1 (BEAKER) (test Not detected Not detected, Inconclusive necc=9053) PARAINFLUENZA VIRUS 2 (BEAKER) (test Not detected Not detected, Inconclusive jdnj=2003) PARAINFLUENZA VIRUS 3 (BEAKER) (test Not detected Not detected, Inconclusive ioao=9429) PARAINFLUENZA VIRUS 4 (BEAKER) (test Not detected Not detected, Inconclusive rngc=6459) ADENOVIRUS (BEAKER) (test zcdw=5282) Not detected Not detected, Inconclusive CORONAVIRUS 229E (BEAKER) (test Not detected Not detected, Inconclusive rhip=4391) CORONAVIRUS HKU1 (BEAKER) (test Not detected Not detected, Inconclusive dlgi=0937) CORONAVIRUS NL63 (BEAKER) (test Not detected Not detected, Inconclusive vvsb=4126) CORONAVIRUS OC43 (BEAKER) (test Not detected Not detected, Inconclusive nxzr=9595) BORDETELLA PERTUSSIS (BEAKER) (test Not detected Not detected, Inconclusive ngcl=9240) CHLAMYDOPHILA PNEUMONIAE (BEAKER) Not detected Not detected, Inconclusive (test kkrs=8876) MYCOPLASMA PNEUMONIAE (BEAKER) (test Not detected Not detected, Inconclusive eqze=4209) TROPONIN [id number] 13:31:00 Test Item Value Reference Range Comments TROPONIN I (BEAKER) (test ebgy=588) 0.08 ng/mL 0.00-0.03 Troponin I (TnI) levels [...] acute neurological disease, and persistent tachyarrhythmia.VANCOMYCIN LEVEL, [id number] 09:30 :00 Test Item Value Reference Range Comments VANCOMYCIN TROUGH (BEAKER) (test djce=878) 8.6 ug/mL 10.0-20.0 [id number] 07:03:00 Test Item Value Reference Range Comments MAGNESIUM (BEAKER) (test vxvu=425) 1.7 mg/dL 1.6-2.6 COMPREHENSIVE METABOLIC [id number] 07:03:00 Test Item Value Reference Range Comments TOTAL PROTEIN (BEAKER) 5.6 gm/dL 6.0-8.3 (test tssc=535) ALBUMIN (BEAKER) (test 3.0 g/dL 3.5-5.0 pqqb=0739) ALKALINE PHOSPHATASE 106 U/L 40-150 (BEAKER) (test ruxz=116) BILIRUBIN TOTAL (BEAKER) < mg/dL 0.2-1.2 (test dfxp=222) SODIUM (BEAKER) (test 136 meq/L 136-145 fnky=834) POTASSIUM (BEAKER) (test 3.8 meq/L 3.5-5.1 jguv=501) CHLORIDE (BEAKER) (test 96 meq/L 98-107 dmii=711) CO2 (BEAKER) (test 33 meq/L 22-29 heoy=702) BLOOD UREA NITROGEN 13 mg/dL 7-21 (BEAKER) (test suxw=129) CREATININE (BEAKER) (test 0.56 mg/dL 0.57-1.25 rlce=614) GLUCOSE RANDOM (BEAKER) 250 mg/dL 70-105 (test zxtc=821) CALCIUM (BEAKER) (test 8.3 mg/dL 8.4-10.2 hcgd=548) AST (SGOT) (BEAKER) (test 12 U/L 5-34 ozas=776) ALT (SGPT) (BEAKER) (test 24 U/L 6-55 dhor=984) EGFR (BEAKER) (test 110 mL/min/1.73 sq ESTIMATED GFR IS NOT inwx=0507) m ACCURATE CREATININE CLEARANCE IN PREDICTING GLOMERULAR FILTRATION RATE. ESTIMATED GFR IS NOT APPLICABLE FOR DIALYSIS PATIENTS. TROPONIN [id number] 07:00:00 Test Item Value Reference Range Comments TROPONIN I (BEAKER) (test szvt=429) 0.10 ng/mL 0.00-0.03 Troponin I (TnI) levels [...] acidosis, acute neurological disease, and persistent tachyarrhythmia.TROPONIN [id number] 07:00:00 Test Item Value Reference Range Comments TROPONIN I (BEAKER) (test lvom=451) 0.09 ng/mL 0.00-0.03 Troponin I (TnI) levels [...] and persistent tachyarrhythmia.CBC W/PLT COUNT & AUTO [id number] 06:20:00 Test Item Value Reference Range Comments WHITE BLOOD CELL COUNT (BEAKER) (test sdfq=938) 10.2 K/ L 3.5-10.5 RED BLOOD CELL COUNT (BEAKER) (test ljja=909) 3.35 M/ L 3.93-5.22 HEMOGLOBIN (BEAKER) (test bksy=486) 9.2 GM/DL 11.2-15.7 HEMATOCRIT (BEAKER) (test lbkv=537) 29.6 % 34.1-44.9 MEAN CORPUSCULAR VOLUME (BEAKER) (test oqqv=082) 88.4 fL 79.4-94.8 MEAN CORPUSCULAR HEMOGLOBIN (BEAKER) (test 27.5 pg 25.6-32.2 nrwb=017) MEAN CORPUSCULAR HEMOGLOBIN CONC (BEAKER) (test 31.1 GM/DL 32.2-35.5 wikj=765) RED CELL DISTRIBUTION WIDTH (BEAKER) (test 16.1 % 11.7-14.4 mqzb=639) PLATELET COUNT (BEAKER) (test iguy=222) 185 K/CU MM 150-450 MEAN PLATELET VOLUME (BEAKER) (test bxdx=125) 11.0 fL 9.4-12.3 NUCLEATED RED BLOOD CELLS (BEAKER) (test 0 /100 WBC 0-0 idwm=051) NEUTROPHILS RELATIVE PERCENT (BEAKER) (test 91 % dsls=602) LYMPHOCYTES RELATIVE PERCENT (BEAKER) (test 4 % zzua=955) MONOCYTES RELATIVE PERCENT (BEAKER) (test 4 % lqrs=371) EOSINOPHILS RELATIVE PERCENT (BEAKER) (test 0 % niun=806) BASOPHILS RELATIVE PERCENT (BEAKER) (test 0 % bdji=627) NEUTROPHILS ABSOLUTE COUNT (BEAKER) (test 9.34 K/ L 1.56-6.13 fxsq=603) LYMPHOCYTES ABSOLUTE COUNT (BEAKER) (test 0.37 K/ L 1.18-3.74 doih=236) MONOCYTES ABSOLUTE COUNT (BEAKER) (test 0.45 K/ L 0.24-0.36 vqte=408) EOSINOPHILS ABSOLUTE COUNT (BEAKER) (test 0.00 K/ L 0.04-0.36 vict=186) BASOPHILS ABSOLUTE COUNT (BEAKER) (test 0.01 K/ L 0.01-0.08 ecjh=380) IMMATURE GRANULOCYTES-RELATIVE PERCENT (BEAKER) 1 % 0-1 (test ssfe=5543) [id number] 13:17:00 Test Item Value Reference Range Comments PROCALCITONIN (BEAKER) (test lxcy=3608) 0.26 ng/mL <0.05 SEPSIS RISK (ng/mL)Low: 0.05-0.50Intermediate: 0.51-2.00High: & gt;=2.01POCT-GLUCOSE [id number] 11:40:00 Test Item Value Reference Range Comments POC-GLUCOSE METER (BEAKER) 162 mg/dL 70-110 TESTED [address] (test ybue=2730) [place] [id number] POCT-GLUCOSE [id number] 07:20:00 Test Item Value Reference Range Comments POC-GLUCOSE METER (BEAKER) 97 mg/dL 70-110 TESTED AT [address] (test pbov=1228) [facility] [id number] CBC W/PLT COUNT & AUTO [id number] 06:11:00 Test Item Value Reference Range Comments WHITE BLOOD CELL COUNT (BEAKER) (test szkf=135) 7.2 K/ L 3.5-10.5 RED BLOOD CELL COUNT (BEAKER) (test crnn=202) 3.77 M/ L 3.93-5.22 HEMOGLOBIN (BEAKER) (test jpuu=782) 10.1 GM/DL 11.2-15.7 HEMATOCRIT (BEAKER) (test znzl=083) 32.9 % 34.1-44.9 MEAN CORPUSCULAR VOLUME (BEAKER) (test awhq=951) 87.3 fL 79.4-94.8 MEAN CORPUSCULAR HEMOGLOBIN (BEAKER) (test 26.8 pg 25.6-32.2 gdbs=493) MEAN CORPUSCULAR HEMOGLOBIN CONC (BEAKER) (test 30.7 GM/DL 32.2-35.5 bjvv=688) RED CELL DISTRIBUTION WIDTH (BEAKER) (test 16.2 % 11.7-14.4 cjwy=985) PLATELET COUNT (BEAKER) (test fmtj=713) 222 K/CU MM 150-450 MEAN PLATELET VOLUME (BEAKER) (test lpjd=599) 11.1 fL 9.4-12.3 NUCLEATED RED BLOOD CELLS (BEAKER) (test 0 /100 WBC 0-0 nuhm=888) NEUTROPHILS RELATIVE PERCENT (BEAKER) (test 90 % rsin=614) LYMPHOCYTES RELATIVE PERCENT (BEAKER) (test 7 % vvyw=415) MONOCYTES RELATIVE PERCENT (BEAKER) (test 2 % kxos=324) EOSINOPHILS RELATIVE PERCENT (BEAKER) (test 0 % lwln=884) BASOPHILS RELATIVE PERCENT (BEAKER) (test 0 % mdgp=939) NEUTROPHILS ABSOLUTE COUNT (BEAKER) (test 6.45 K/ L 1.56-6.13 sxyj=537) LYMPHOCYTES ABSOLUTE COUNT (BEAKER) (test 0.53 K/ L 1.18-3.74 ogbg=555) MONOCYTES ABSOLUTE COUNT (BEAKER) (test 0.16 K/ L 0.24-0.36 ahys=550) EOSINOPHILS ABSOLUTE COUNT (BEAKER) (test 0.00 K/ L 0.04-0.36 denj=588) BASOPHILS ABSOLUTE COUNT (BEAKER) (test 0.01 K/ L 0.01-0.08 wkkn=457) IMMATURE GRANULOCYTES-RELATIVE PERCENT (BEAKER) 1 % 0-1 (test vtux=4966) [id number] 05:50:00 Test Item Value Reference Range Comments MAGNESIUM (BEAKER) (test sbsw=296) 1.4 mg/dL 1.6-2.6 COMPREHENSIVE METABOLIC [id number] 05:50:00 Test Item Value Reference Range Comments TOTAL PROTEIN (BEAKER) 5.8 gm/dL 6.0-8.3 (test xnbj=419) ALBUMIN (BEAKER) (test 2.9 g/dL 3.5-5.0 vvco=1306) ALKALINE PHOSPHATASE 130 U/L 40-150 (BEAKER) (test kedi=228) BILIRUBIN TOTAL (BEAKER) 0.4 mg/dL 0.2-1.2 (test ovnp=092) SODIUM (BEAKER) (test 138 meq/L 136-145 mufr=270) POTASSIUM (BEAKER) (test 3.0 meq/L 3.5-5.1 liqr=368) CHLORIDE (BEAKER) (test 93 meq/L 98-107 dnkb=141) CO2 (BEAKER) (test 32 meq/L 22-29 vqio=207) BLOOD UREA NITROGEN 19 mg/dL 7-21 (BEAKER) (test qlwx=631) CREATININE (BEAKER) (test 0.63 mg/dL 0.57-1.25 lemi=067) GLUCOSE RANDOM (BEAKER) 104 mg/dL 70-105 (test zcbu=156) CALCIUM (BEAKER) (test 8.3 mg/dL 8.4-10.2 sztn=343) AST (SGOT) (BEAKER) (test 25 U/L 5-34 rggx=537) ALT (SGPT) (BEAKER) (test 29 U/L 6-55 bvon=947) EGFR (BEAKER) (test 96 mL/min/1.73 sq m ESTIMATED GFR IS NOT vaac=5423) ACCURATE CREATININE CLEARANCE IN PREDICTING GLOMERULAR FILTRATION RATE. ESTIMATED GFR IS NOT APPLICABLE FOR DIALYSIS PATIENTS. BLOOD GAS, [id number] 05:06:00 Test Item Value Reference Range Comments PH ARTERIAL (BEAKER) (test etbt=478) 7.48 7.35-7.45 PCO2 ARTERIAL (BEAKER) (test cfkb=168) 49 mmHg 35-45 PO2 ARTERIAL (BEAKER) (test icba=967) 77 mmHg 80-90 O2 SATURATION ARTERIAL (BEAKER) (test akcr=763) 96.0 % 96.0-97.0 HCO3 ARTERIAL (BEAKER) (test rbat=802) 36 mmol/L 21-29 BASE EXCESS ARTERIAL (BEAKER) (test lqwp=805) 10.7 mmol/L -2.0-3.0 PATIENT TEMPERATURE (BEAKER) (test dsnr=1648) 37.0 C FIO2 (BEAKER) (test khqu=1422) 24.0 % HEPATITIS C [id number] 01:28:00 Test Item Value Reference Range Comments HEPATITIS C ANTIBODY (BEAKER) (test lsgu=454) Equivocal Nonreactive RAPID INFLUENZA A&B [id number] 22:53:00 Test Item Value Reference Range Comments RAPID INFLUENZA A AG (BEAKER) (test Negative Negative, Inconclusive ynsp=1689) RAPID INFLUENZA B AG (BEAKER) (test Negative Negative, Inconclusive wvah=0291) URINALYSIS W/ [id number] 22:38:00 Test Item Value Reference Range Comments COLOR (BEAKER) (test xtzl=666) Yellow CLARITY (BEAKER) (test npnv=784) Clear SPECIFIC GRAVITY UA (BEAKER) (test zcen=006) 1.019 1.001-1.035 PH UA (BEAKER) (test fnrp=399) 5.0 5.0-8.0 PROTEIN UA (BEAKER) (test ijrt=657) 10 mg/dL Negative GLUCOSE UA (BEAKER) (test vccc=740) Negative Negative KETONES UA (BEAKER) (test wjoa=926) 80 mg/dL Negative BILIRUBIN UA (BEAKER) (test ccnl=324) Negative Negative BLOOD UA (BEAKER) (test lcjm=103) Negative Negative NITRITE UA (BEAKER) (test kefr=402) Negative Negative LEUKOCYTE ESTERASE UA (BEAKER) (test tqcl=866) Small Negative UROBILINOGEN UA (BEAKER) (test uqun=576) 0.2 mg/dL 0.2-1.0 RBC UA (BEAKER) (test gdci=985) 1 /HPF WBC UA (BEAKER) (test qctb=976) 9 /HPF BACTERIA (BEAKER) (test ubln=642) Rare MUCUS (BEAKER) (test lkam=9617) Rare SQUAMOUS EPITHELIAL (BEAKER) (test pjly=923) 1 /HPF CASTS (BEAKER) (test gvvh=0927) 2 /LPF CRYSTALS, URINE (BEAKER) (test cmku=8174) Rare SOURCE(BEAKER) (test vcbt=6285) Urine, [place] HEPATITIS B CORE ANTIBODY, [id number] 22:36:00 Test Item Value Reference Range Comments HEPATITIS B CORE TOTAL ANTIBODY (BEAKER) (test Nonreactive Nonreactive jlvq=754) HIV-1 ANTIGEN WITH HIV-1/2 [id number] 22:36:00 Test Item Value Reference Range Comments HIV-1 ANTIGEN WITH HIV 1\T\2 ANTIBODY (2) Nonreactive Nonreactive (BEAKER) (test oapl=6948) PROTHROMBIN [id number] 22:34:00 Test Item Value Reference Range Comments PROTIME (BEAKER) (test swwn=551) 14.3 seconds 11.7-14.7 INR (BEAKER) (test quwn=117) 1.1 <=5.9 RECOMMENDED COUMADIN/WARFARIN INR THERAPY RANGESSTANDARD DOSE: 2.0 - 3.0 Includes: PROPHYLAXIS forvenous thrombosis, systemic embolization; TREATMENT for venous thrombosis and/or pulmonary embolus.HIGH RISK: Target INR is 2.5-3.5 for patients with mechanical heart valves.TROPONIN [id number] 22:24:00 Test Item Value Reference Range Comments TROPONIN I (BEAKER) (test tmzi=636) 0.19 ng/mL 0.00-0.03 Troponin I (TnI) levels [...] NATRIURETIC PEPTIDE (BEAKER) (test 364 pg/mL 0-100 uzrd=646) [id number] 22:14:00 Test Item Value Reference Range Comments PHOSPHORUS (BEAKER) (test vfui=554) 3.4 mg/dL 2.3-4.7 [id number] 22:14:00 Test Item Value Reference Range Comments MAGNESIUM (BEAKER) (test iery=392) 1.7 mg/dL 1.6-2.6 COMPREHENSIVE METABOLIC [id number] 22:14:00 Test Item Value Reference Range Comments TOTAL PROTEIN (BEAKER) 5.5 gm/dL 6.0-8.3 (test kvpg=881) ALBUMIN (BEAKER) (test 2.9 g/dL 3.5-5.0 jqxd=0866) ALKALINE PHOSPHATASE 134 U/L 40-150 (BEAKER) (test hlvx=178) BILIRUBIN TOTAL (BEAKER) 0.4 mg/dL 0.2-1.2 (test pbxv=667) SODIUM (BEAKER) (test 138 meq/L 136-145 kugf=398) POTASSIUM (BEAKER) (test 3.6 meq/L 3.5-5.1 rlao=430) CHLORIDE (BEAKER) (test 97 meq/L 98-107 shzx=320) CO2 (BEAKER) (test 31 meq/L 22-29 lfdb=799) BLOOD UREA NITROGEN 20 mg/dL 7-21 (BEAKER) (test wtwg=279) CREATININE (BEAKER) (test 0.58 mg/dL 0.57-1.25 yymq=498) GLUCOSE RANDOM (BEAKER) 75 mg/dL 70-105 (test cdol=526) CALCIUM (BEAKER) (test 8.3 mg/dL 8.4-10.2 adra=589) AST (SGOT) (BEAKER) (test 31 U/L 5-34 yqni=844) ALT (SGPT) (BEAKER) (test 30 U/L 6-55 arul=445) EGFR (BEAKER) (test 106 mL/min/1.73 sq ESTIMATED GFR IS NOT rawv=1549) m ACCURATE CREATININE CLEARANCE IN PREDICTING GLOMERULAR FILTRATION RATE. ESTIMATED GFR IS NOT APPLICABLE FOR DIALYSIS PATIENTS. CBC W/PLT COUNT & AUTO [id number] 22:11:00 Test Item Value Reference Range Comments WHITE BLOOD CELL COUNT (BEAKER) (test ruki=523) 6.6 K/ L 3.5-10.5 RED BLOOD CELL COUNT (BEAKER) (test mctm=006) 3.51 M/ L 3.93-5.22 HEMOGLOBIN (BEAKER) (test qwrw=440) 9.7 GM/DL 11.2-15.7 HEMATOCRIT (BEAKER) (test sxez=421) 31.6 % 34.1-44.9 MEAN CORPUSCULAR VOLUME (BEAKER) (test fhvx=663) 90.0 fL 79.4-94.8 MEAN CORPUSCULAR HEMOGLOBIN (BEAKER) (test 27.6 pg 25.6-32.2 scgq=302) MEAN CORPUSCULAR HEMOGLOBIN CONC (BEAKER) (test 30.7 GM/DL 32.2-35.5 mcxs=324) RED CELL DISTRIBUTION WIDTH (BEAKER) (test 16.0 % 11.7-14.4 fswr=638) PLATELET COUNT (BEAKER) (test ejli=660) 197 K/CU MM 150-450 MEAN PLATELET VOLUME (BEAKER) (test cqzv=617) 11.0 fL 9.4-12.3 NUCLEATED RED BLOOD CELLS (BEAKER) (test 0 /100 WBC 0-0 zsdj=769) NEUTROPHILS RELATIVE PERCENT (BEAKER) (test 92 % oens=608) LYMPHOCYTES RELATIVE PERCENT (BEAKER) (test 6 % mjvq=151) MONOCYTES RELATIVE PERCENT (BEAKER) (test 1 % ciff=633) EOSINOPHILS RELATIVE PERCENT (BEAKER) (test 0 % ngza=598) BASOPHILS RELATIVE PERCENT (BEAKER) (test 0 % udzy=883) NEUTROPHILS ABSOLUTE COUNT (BEAKER) (test 6.08 K/ L 1.56-6.13 hrqn=600) LYMPHOCYTES ABSOLUTE COUNT (BEAKER) (test 0.40 K/ L 1.18-3.74 bfew=060) MONOCYTES ABSOLUTE COUNT (BEAKER) (test 0.08 K/ L 0.24-0.36 eecl=474) EOSINOPHILS ABSOLUTE COUNT (BEAKER) (test 0.00 K/ L 0.04-0.36 ylzb=861) BASOPHILS ABSOLUTE COUNT (BEAKER) (test 0.01 K/ L 0.01-0.08 drhx=343) IMMATURE GRANULOCYTES-RELATIVE PERCENT (BEAKER) 1 % 0-1 (test xotz=3825) BLOOD GAS, [id number] 20:15:00 Test Item Value Reference Range Comments PH ARTERIAL (BEAKER) (test smbk=742) 7.40 7.35-7.45 PCO2 ARTERIAL (BEAKER) (test dxgx=274) 58 mmHg 35-45 PO2 ARTERIAL (BEAKER) (test wrth=576) 89 mmHg 80-90 O2 SATURATION ARTERIAL (BEAKER) (test zppy=333) 96.6 % 96.0-97.0 HCO3 ARTERIAL (BEAKER) (test mhvr=455) 35 mmol/L 21-29 BASE EXCESS ARTERIAL (BEAKER) (test knud=205) 8.7 mmol/L -2.0-3.0 PATIENT TEMPERATURE (BEAKER) (test xghp=8747) 37.0 C FIO2 (BEAKER) (test lqcd=3095) 24.0 % RAD, CHEST, 1 VIEW, NON [id number] 19:30:00Post-intubationReason for exam:-& gt;transfer from OSH, intubated/respiratory [...] MDReport Verified Date/Time: 02/04/2017 19: 30:53 Reading Location:[address] Reading Room
--- OUTSIDE RECORDS SUMMARY | 2017-11-07 16:04 | XMS REPORT ---
[...] End Status Dosage System Date Date Clonazepam [facility] 76391143726 1 MG Orally Active 1 tablet Once a day Creon [facility] 22325316891 [address]-74918 Active not defined UNIT Orally Triamcinolone ND 46321585510 0.5 % August Active 1 application Acetonide Externally 11, to affected Twice a day 2017 area Metoprolol ND 23511048595 25 MG Orally Active 1 tablet with Tartrate Twice a day food Albuterol-Ipratro ND 0 2.5-0.5 MG/3ML Active 3 ml pium Inhalation every 6 hrs ProAir RespiClick [facility] 18459705790 108 (90 Base) Active 2 puffs as MCG/ACT needed Inhalation every 6 hrs Brovana [facility] 70624210306 15 MCG/2ML Active 2 ml Inhalation Twice a day Protonix [facility] 46729633723 40 MG Active 1 EACH ONCE A DAY ORALLY Metformin HCl [facility] 78747728311 500 MG Orally Active 1 tablet with Twice a day meals Magnesium Oxide [facility] 04417501691 400 MG Orally Active 1 tablet as Once a day needed Pantoprazole [facility] 81891677542 40 MG Orally May Active 1 tablet Sodium Once a day 2017 Methadone HCl [facility] 07445697557 10 MG Orally Active 1 tablet Once a day Lasix [facility] 60982873805 20 MG Orally Active 1 tablet Once a day Medrol [facility] 54950721710 4 MG Orally August Active as directed 2017 Prolia [facility] 47430478352 60 MG/ML Active not defined Subcutaneous MiraLax [facility] 98595974984 - Orally Once Active 1 packet a day mixed with 8 ounces of fluid Ergocalciferol [facility] 54310256442 57486 UNIT Active 1 capsule Orally Results No Known Results Summary Purpose eClinicalWorks Submission
--- OUTSIDE RECORDS SUMMARY | 2017-11-07 16:04 | XMS REPORT ---
[...] G47.00 Active Problem Back pain M54.9 Active Problem Degeneration of lumbosacral M51.37 Active intervertebral disc Assessment Medicare annual wellness visit, Z00.00 Active initial Problem Other chronic pain G89.29 Active Problem Depression with anxiety F41.8 Active Problem Nicotine dependence F17.200 Active Problem Iron deficiency anemia D50.9 Active Problem Rotator cuff tear arthropathy of M12.811 Active right shoulder Problem Kyphosis M40.209 Active Medications Medication Code Code Instructions Start End Status Dosage System Date Date Methadone HCl ND 78615485732 10 MG Orally Active 1 tablet Once a day Protonix [facility] 47515193994 40 MG Active 1 EACH ONCE A DAY ORALLY Brovana ND 19145466744 15 MCG/2ML Active 2 ml Inhalation Twice a day ProAir RespiClick [facility] 24063095177 108 (90 Base) Active 2 puffs as MCG/ACT needed Inhalation every 6 hrs Metoprolol ND 98835983728 25 MG Orally Active 1 tablet Tartrate Twice a day with food Pantoprazole ND 55176091837 40 MG Orally March Active 1 tablet Sodium Once a day 2017 Albuterol-Ipratro ND 0 2.5-0.5 MG/3ML Active 3 ml pium Inhalation every 6 hrs Magnesium Oxide ND 66078455397 400 MG Orally Active 1 tablet Once a day as needed Prolia [facility] 03498684201 60 MG/ML Active not Subcutaneous defined MiraLax [facility] 46007568616 - Orally Once a Active 1 packet day mixed with 8 ounces of fluid Ergocalciferol [facility] 75808908451 62554 UNIT Active 1 capsule Orally Metformin HCl [facility] 06452279478 500 MG Orally Active 1 tablet Twice a day with meals Clonazepam [facility] 29689746417 1 MG Orally Active 1 tablet Once a day Creon [facility] 49169947204 57838-34708 Active not UNIT Orally defined Lasix [facility] 01644026929 20 MG Orally Active 1 tablet Once a day Results No Known Results Summary Purpose eClinicalWorks Submission
--- NOTE | 2017-11-07 17:13 | RAD REPORT ---
EXAM DESCRIPTION: RAD - Foot Right 3 View - 11/07/2017 4:53 pm CLINICAL HISTORY: PAIN<Reason For Exam>PAIN Trip and fall, foot pain COMPARISON: No comparisons<Comparisons> FINDINGS: No acute fracture changes confirmed. Bones do appear to be quite osteoporotic given the pa tient's age. IP joint degenerative changes are present. There is mild degenerative change at the firs t MTP joint. First distal phalanx tuft shows cortical irregularity that is probably old trauma. Site of patient pain was not further detailed. There is evidence for old trauma to the distal shaft third metatarsal. No air or foreign body in the soft tissues. IMPRESSION: Prominent osteoporotic changes to the foot with no acute fracture identifiable. Degree of osteopenic change could potentially mask a subtle fracture. Repeat imaging in 7 days could be performed if the patient remains symptomatic.
--- NOTE | 2017-11-07 17:17 | EDPHYS ---
Physician Documentation [facility] Name: Alee Humphrey Age: 62 yrs Sex: Female : 1955 Arrival Date: 11/07/2017 Time: 16:04 Bed Treatment Private MD: ED Physician Adan Orozco HPI: 11/07 16:19 This 62 yrs old Female presents to ER via EMS with complaints of Foot Pain. jr8 16:19 The patient presents with pain. The complaints affect the right foot. Context: The jr8 problem was sustained at home, resulted from the patient falling. Onset: The symptoms/episode began/occurred acutely, today. Modifying factors: The symptoms are alleviated by nothing. the symptoms are aggravated by movement. Associated signs and symptoms: The patient has no apparent associated signs or symptoms. Severity of symptoms: At their worst the symptoms were mild, in the emergency department the symptoms are unchanged. The patient has not experienced similar symptoms in the past. The patient has not recently seen a physician. Historical: - Allergies: 16:07 Cephalexin Monohydrate; aj 16:07 cyclobenzaprine HCl (Vomiting); aj 16:07 Keflex (Vomiting); aj - Home Meds: 16:07 baclofen 10 mg Oral tab 1 tab every 6 hrs PRN for pain [Active]; clonazepam 1 mg Oral aj tab at bedtime [Active]; Hydrochlorothiazide Oral [Active]; methadone 10 mg Oral tab 4 times a day PRN for pain [Active]; tiotropium bromide inhalation [Active]; - PMHx: 16:07 Anxiety; CHF; chronic back pain; COPD; Depression; aj - Immunization history:: Adult Immunizations up to date. - Social history:: Smoking status: Patient uses tobacco products, smokes one-half pack cigarettes per day. - Ebola Screening: : Patient negative for fever greater than or equal to 101.5 degrees Fahrenheit, and additional compatible Ebola Virus Disease symptoms Patient denies exposure to infectious person Patient denies travel to an Ebola-affected area in the 21 days before illness onset No symptoms or risks identified at this time. ROS: 16:19 Eyes: Negative for injury, pain, redness, and discharge, ENT: Negative for injury, jr8 pain, and discharge, Neck: Negative for injury, pain, and swelling, Cardiovascular: Negative for chest pain, palpitations, and edema, Respiratory: Negative for shortness of breath, cough, wheezing, and pleuritic chest pain, Abdomen/GI: Negative for abdominal pain, nausea, vomiting, diarrhea, and constipation, Back: Negative for injury and pain, Skin: Negative for injury, rash, and discoloration, Neuro: Negative for headache, weakness, numbness, tingling, and seizure. 16:19 MS/extremity: Positive for pain, tenderness, of the right foot. Exam: 16:19 Head/Face: Normocephalic, atraumatic. Eyes: Pupils equal round and reactive to light, jr8 extra-ocular motions intact. Lids and lashes normal. Conjunctiva and sclera are non-icteric and not injected. Cornea within normal limits. Periorbital areas with no swelling, redness, or edema. ENT: Nares patent. No nasal discharge, no septal abnormalities noted. Tympanic membranes are normal and external auditory canals are clear. Oropharynx with no redness, swelling, or masses, exudates, or evidence of obstruction, uvula midline. Mucous membranes moist. Neck: Trachea midline, no thyromegaly or masses palpated, and no cervical lymphadenopathy. Supple, full range of motion without nuchal rigidity, or vertebral point tenderness. No Meningismus. Chest/axilla: Normal chest wall appearance and motion. Nontender with no deformity. No lesions are appreciated. Cardiovascular: Regular rate and rhythm with a normal S1 and S2. No gallops, murmurs, or rubs. Normal PMI, no JVD. No pulse deficits. Respiratory: Lungs have equal breath sounds bilaterally, clear to auscultation and percussion. No rales, rhonchi or wheezes noted. No increased work of breathing, no retractions or nasal flaring. Abdomen/GI: Soft, non-tender, with normal bowel sounds. No distension or tympany. No guarding or rebound. No evidence of tenderness throughout. Back: No spinal tenderness. No costovertebral tenderness. Full range of motion. Skin: Warm, dry with normal turgor. Normal color with no rashes, no lesions, and no evidence of cellulitis. Neuro: Awake and alert, GCS 15, oriented to person, place, time, and situation. Cranial nerves II-XII grossly intact. Motor strength 5/5 in all extremities. Sensory grossly intact. Cerebellar exam normal. Normal gait. 16:19 Musculoskeletal/extremity: Extremities: grossly normal except: noted in the right foot: pain, tenderness, ROM: intact in all extremities, full active range of motion, full passive range of motion, limited active range of motion due to pain, limited passive range of motion due to pain, Circulation is intact in all extremities. Sensation intact. Vital Signs: 16:07 BP 118 / 64; Pulse 78; Resp 15; Temp 98.1; Pulse Ox 95% on R/A; Weight 40.37 kg; Height aj 5 ft. 2 in. (157.48 cm); Pain 10/10; 17:35 BP 93 / 74; Pulse 69; Resp 14; Pulse Ox 96% on R/A; aj 16:07 Body Mass Index 16.28 (40.37 kg, 157.48 cm) aj MDM: 16:15 Patient medically screened. jr8 17:15 Data reviewed: vital signs, nurses notes, radiologic studies, plain films, and as a jr8 result, I will discharge patient. Data interpreted: Pulse oximetry: on room air is 95 %. Interpretation: normal. Counseling: I had a detailed discussion with the patient and/or guardian regarding: the historical points, exam findings, and any diagnostic results supporting the discharge/admit diagnosis, radiology results, the need for outpatient follow up, a family practitioner, to return to the emergency department if symptoms worsen or persist or if there are any questions or concerns that arise at home. 11/07 16:09 Order name: XRAY Foot RIGHT 3 View; Complete Time: 17:14 aj Administered Medications: 16:37 Not Given (Physician Discretion): [place] (7.5 mg-325 mg) 1 tabs PO once aj Disposition: 18:14 Co-signature as Attending Physician, Adan Orozco MD. kdr 18:14 I agree with the assessment and plan of care. kdr Disposition: 11/07/17 17:16 Discharged to Home. Impression: Contusion of right foot. - Condition is Stable. - Discharge Instructions: Foot Contusion. - Medication Reconciliation Form, Thank You Letter, Antibiotic Education, Prescription Opioid Use form. - Follow up: Private Physician; When: 2 - 3 days; Reason: Recheck today's complaints, Continuance of care, Re-evaluation by your physician. - Problem is new. - Symptoms have improved. Signatures: Dispatcher [employer] EDMS Joaquin, Makenzie, RN RN Adan Thomson MD MD kdr Roszak, Josh, PA PA jr8 Corrections: (The following items were deleted from the chart) 17:45 17:16 11/07/2017 17:16 Discharged to Home. Impression: Contusion of right foot. aj Condition is Stable. Forms are Medication Reconciliation Form, Thank You Letter, Antibiotic Education, Prescription Opioid Use. Follow up: Private Physician; When: 2 - 3 days; Reason: Recheck today's complaints, Continuance of care, Re-evaluation by your physician. Problem is new. Symptoms have improved. jr8
--- NOTE | 2017-11-07 17:17 | ER ---
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 Minimal swelling noted to top of right foot, good cap refill. Patient reports taking hydrocodone today PERSONAL INVESTMENT ADVISER. Transition of care: patient was not received from another setting of care. Onset of symptoms was November 07, 2017. Risk Assessment: Do you want to hurt yourself or someone else? Patient reports no desire to harm self or others. Initial Sepsis Screen: Does the patient meet any 2 criteria? No. Patient's initial sepsis screen is negative. Does the patient have a suspected source of infection? No. Patient's initial sepsis screen is negative. Care prior to arrival: None. 16:05 Method Of Arrival: EMS: [facility] 16:05 Acuity: FARHAT 4 aj Triage Assessment: 16:07 General: Appears in no apparent distress. comfortable, Behavior is calm, cooperative, aj appropriate for age. Pain: Complains of pain in dorsum of right foot. Neuro: Level of Consciousness is awake, alert, obeys commands, Oriented to person, place, time, situation, Appropriate for age. Respiratory: Airway is patent Respiratory effort is even, unlabored, Respiratory pattern is regular, symmetrical. GI: Abdomen is flat, non-distended. Derm: Skin is intact, is fragile, is thin, Skin is pink, warm \T\ dry. Musculoskeletal: Circulation, motion, and sensation intact. Swelling present in dorsum of right foot Reports pain in dorsum of right foot. Historical: - Allergies: 16:07 Cephalexin Monohydrate; aj 16:07 cyclobenzaprine HCl (Vomiting); aj 16:07 Keflex (Vomiting); aj - Home Meds: 16:07 baclofen 10 mg Oral tab 1 tab every 6 hrs PRN for pain [Active]; clonazepam 1 mg Oral aj tab at bedtime [Active]; Hydrochlorothiazide Oral [Active]; methadone 10 mg Oral tab 4 times a day PRN for pain [Active]; tiotropium bromide inhalation [Active]; - PMHx: 16:07 Anxiety; CHF; chronic back pain; COPD; Depression; aj - Immunization history:: Adult Immunizations up to date. - Social history:: Smoking status: Patient uses tobacco products, smokes one-half pack cigarettes per day. - Ebola Screening: : Patient negative for fever greater than or equal to 101.5 degrees Fahrenheit, and additional compatible Ebola Virus Disease symptoms Patient denies exposure to infectious person Patient denies travel to an Ebola-affected area in the 21 days before illness onset No symptoms or risks identified at this time. Screenin:35 Abuse screen: Denies threats or abuse. Denies injuries from another. Nutritional aj screening: No deficits noted. Tuberculosis screening: No symptoms or risk factors identified. Fall Risk None identified. Assessment: 17:35 Reassessment: Patient appears in no apparent distress at this time. No changes from aj previously documented assessment. Patient and/or family updated on plan of care and expected duration. Pain level reassessed. Patient is alert, oriented x 3, equal unlabored respirations, skin warm/dry/pink. Entered room to find patient resting comfortably with eye closed. Caregiver at bedside. Patient expressed concern about pain and not being able to control pain with methadone at home. Provider notified. Vital Signs: 16:07 BP 118 / 64; Pulse 78; Resp 15; Temp 98.1; Pulse Ox 95% on R/A; Weight 40.37 kg; Height aj 5 ft. 2 in. (157.48 cm); Pain 10/10; 17:35 BP 93 / 74; Pulse 69; Resp 14; Pulse Ox 96% on R/A; aj 16:07 Body Mass Index 16.28 (40.37 kg, 157.48 cm) ED Course: 16:04 Patient arrived in ED. aj 16:05 Makenzie Joaquin, RN is Primary Nurse. aj 16:05 Eduardo Can PA is PHCP. aj 16:06 Triage completed. aj 16:07 Arm band placed on left wrist. Patient placed in the treatment room, on a stretcher, on pulse oximetry. 16:07 Patient has correct armband on for positive identification. Bed in low position. Side aj rails up X2. Adult w/ patient. Pulse ox on. NIBP on. 16:07 No provider procedures requiring assistance completed. Patient did not have IV access aj during this emergency room visit. 16:20 Adan Orozco MD is Attending Physician. jr8 16:48 X-ray completed. Portable x-ray completed in exam room. Patient tolerated procedure ml well. 16:49 XRAY Foot RIGHT 3 View In Process Unspecified. EDMS Administered Medications: 16:37 Not Given (Physician Discretion): [place] (7.5 mg-325 mg) 1 tabs PO once aj Outcome: 17:16 Discharge ordered by . 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 Demonstrated understanding of instructions, follow-up care. 17:44 Discharged to home via wheelchair, With caregiver aj 17:44 Condition: good 17:45 Patient left the ED. aj Signatures: Dispatcher [employer] Makenzie Roberson, RN RN Maye Pritchett Josh, PA PA jr8
[2017-11-07 17:55] VITALS: TEMP 98.1
[2017-11-07 17:56] VITALS: BP 93/74; O2SAT 96
== END 2017-11-07 17:45 | disposition home or self-care (01) ==
LOC: ER 15:59
DX: S90.31XA Contusion of right foot, initial encounter (principal); W19.XXXA Unspecified fall, initial encounter; Y93.9 Activity, unspecified; Y92.009 Unspecified place in unspecified non-institutional (private) residence as the place of occurrence of the external cause; Z88.1 Allergy status to other antibiotic agents; Z88.8 Allergy status to other drugs, medicaments and biological substances; F17.210 Nicotine dependence, cigarettes, uncomplicated; J44.9 Chronic obstructive pulmonary disease, unspecified; I50.9 Heart failure, unspecified; F41.9 Anxiety disorder, unspecified; F32.9 Major depressive disorder, single episode, unspecified
CPT/HCPCS: 99283

== ENCOUNTER 2018-02-15 09:24 | Emergency (ER) | payer OTHER ==
--- OUTSIDE RECORDS SUMMARY | 2018-02-15 09:26 | XMS REPORT | Clinical Summary ---
:1955 Author Organization [facility] Address [address] [place] [address] Care Team Providers Name Role Phone Manuel Foley MD Primary Care Provider Unavailable Blair Adams Unavailable Allergies Active Allergy Reactions Severity Noted Date Comments Cephalexin Other (See Comments) 07/28/2008 Cyclobenzaprine Hcl Other (See Comments) 07/28/2008 Loss of feeling in extremities Medications Medication Sig Dispensed Refills Start Date End Date Status arformoterol Take 2 mLs (15 120 mL [...] 3 mLs by 540 mL 0 02/13/2017 patrciia (DUO-NEB) nebulization 8 0.5 mg-3 mg(2.5 every 4 (four) mg base)/3 mL hours for 30 nebulizer days. solution magnesium oxide Take 1 tablet 60 tablet 0 02/13/2017 (MAG-OX) 400 mg (400 mg total) by 8 tablet mouth 2 (two) times daily. predniSONE Take 4 tablets 120 tablet 0 02/14/2017 (DELTASONE) 10 MG (40 mg total) by 8 tablet mouth daily for 30 days. insulin detemir 10 units every morning 4.5 mL 0 02/13/2017 Discontinued (LEVEMIR 5 units every evening. 7 FLEXTOUCH) 100 unit/mL (3 mL) InPn injection blood-glucose Use as 1 each 0 02/13/2017 meter kit instructed. 8 metFORMIN Take 1 tablet 60 tablet 0 02/14/2017 (GLUCOPHAGE) 500 (500 mg total) by 8 MG tablet mouth 2 (two) times daily with breakfast and dinner. levoFLOXacin Take 1 tablet 10 tablet 0 02/14/2017 (LEVAQUIN) 500 MG (500 mg total) by 7 tablet mouth daily for 10 days. metoprolol Take 0.5 tablets 15 tablet 0 02/15/2017 (LOPRESSOR) 25 MG (12.5 mg total) 8 tablet by mouth daily for 30 days. Active Problems Problem Noted Date Acute hypercapnic respiratory failure 02/04/2017 Acute exacerbation of chronic obstructive pulmonary disease (COPD) 02/04/2017 Acute diastolic CHF (congestive heart failure), NYHA class 4 02/04/2017 Pleural effusion, right 02/04/2017 Community acquired pneumonia of right lower lobe of lung 02/04/2017 Severe protein-calorie malnutrition (Moe: less than 60% of standard 2016 weight) Encounters Date Type Specialty Care Team Description 02/04/2017 - Hospital Encounter Cardiology Minal Duarte Acute diastolic CHF (congestive heart failure), NYHA class 4 ([facility]); 02/17/2017 Stacey River MD Acute exacerbation of chronic obstructive pulmonary disease (COPD) ([facility]); Samuel Rico MD Acute hypercapnic respiratory failure ([facility]); Bety Alarcon MD Community acquired pneumonia of right lower lobe of lung ([facility]); Pleural effusion, right; Severe protein-calorie malnutrition (Moe: less than 60% of standard weight) ([facility]) after 02/14/2017 Social History Tobacco Use Types Packs/Day Years Used Date Never Assessed Sex Assigned at Date Recorded Not on file Job Start Date Occupation Industry Not on file Not on file Not on file Travel History Travel Start Travel End No recent travel history available. Last Filed Vital Signs Vital Sign Reading Time Taken Blood Pressure 111/66 02/17/2017 8:30 PM WOMEN SPECIALIST Pulse 80 02/17/2017 8:59 PM WOMEN SPECIALIST Temperature 36.8 C (98.2 F) 02/17/2017 8:30 PM WOMEN SPECIALIST Respiratory Rate 20 02/17/2017 8:59 PM WOMEN SPECIALIST Oxygen Saturation 97% 02/17/2017 8:59 PM WOMEN SPECIALIST Inhaled Oxygen Concentration - - Weight 37.1 kg (81 lb 14.4 oz) 02/17/2017 12:00 PM WOMEN SPECIALIST Height - - Body Mass Index 13.63 02/17/2017 12:00 PM WOMEN SPECIALIST Plan of Treatment Not on file Procedures Procedure Name Priority Date/Time Associated Comments Diagnosis RHYTHM STRIP - SCAN 03/03/2017 2:01 PM WOMEN SPECIALIST RHYTHM STRIP - SCAN 02/20/2017 1:40 PM WOMEN SPECIALIST POCT-GLUCOSE METER Routine 02/17/2017 8:29 Results for this PM WOMEN SPECIALIST procedure are in the results section. POCT-GLUCOSE METER Routine 02/17/2017 8:02 Results for this AM WOMEN SPECIALIST procedure are in the results section. CBC W/PLT COUNT & Routine 02/17/2017 6:11 Results for this AUTO DIFFERENTIAL AM WOMEN SPECIALIST procedure are in the results section. MAGNESIUM Routine 02/17/2017 6:11 Results for this AM WOMEN SPECIALIST procedure are in the results section. CBC W/PLT COUNT & Routine 02/17/2017 6:11 Results for this AUTO DIFFERENTIAL AM WOMEN SPECIALIST procedure are in the results section. BASIC METABOLIC PANEL Routine 02/17/2017 6:11 Results for this (7) AM WOMEN SPECIALIST procedure are in the results section. POCT-GLUCOSE METER Routine 02/16/2017 8:32 Results for this PM WOMEN SPECIALIST procedure are in the results section. POCT-GLUCOSE METER Routine 02/16/2017 11:05 Results for this AM WOMEN SPECIALIST procedure are in the results section. POCT-GLUCOSE METER Routine 02/16/2017 7:37 Results for this AM WOMEN SPECIALIST procedure are in the results section. MAGNESIUM Routine 02/16/2017 6:03 Results for this AM WOMEN SPECIALIST procedure are in the results section. BASIC METABOLIC PANEL Routine 02/16/2017 6:03 Results for this (7) AM WOMEN SPECIALIST procedure are in the results section. CBC W/PLT COUNT & Routine 02/16/2017 4:06 Results for this AUTO DIFFERENTIAL AM WOMEN SPECIALIST procedure are in the results section. CBC W/PLT COUNT & Routine 02/16/2017 4:06 Results for this AUTO DIFFERENTIAL AM WOMEN SPECIALIST procedure are in the results section. POCT-GLUCOSE METER Routine 02/15/2017 9:18 Results for this PM WOMEN SPECIALIST procedure are in the results section. POCT-GLUCOSE METER Routine 02/15/2017 5:50 Results for this PM WOMEN SPECIALIST procedure are in the results section. ECG 12-LEAD Routine 02/15/2017 12:09 PM WOMEN SPECIALIST Procedure Note - Interface, External Ris In - 02/15/2017 12:17 PM WOMEN SPECIALIST Ventricular Rate 91 BPM Atrial Rate 91 BPM P-R Interval 94 ms QRS Duration 86 ms Q-T Interval 348 ms QTC Calculation(Bazett) 428 ms P Zoar 39 degrees R Zoar 21 degrees T Zoar 65 degrees Sinus rhythm with short MD Moderate voltage criteria for LVH, may be normal variant Borderline ECG When compared with ECG of 04-FEB-2017 21:46, T wave inversion no longer evident in Inferior leads T wave inversion no longer evident in Anterior leads ECG 12-LEAD Routine 02/15/2017 12:09 PM WOMEN SPECIALIST POCT-GLUCOSE METER Routine 02/15/2017 11:45 AM WOMEN SPECIALIST POCT-GLUCOSE METER Routine 02/15/2017 7:30 AM WOMEN SPECIALIST CBC W/PLT COUNT & AUTO Routine 02/15/2017 3:47 AM WOMEN SPECIALIST Results for this DIFFERENTIAL procedure are in the results section. MAGNESIUM Routine 02/15/2017 3:47 AM WOMEN SPECIALIST CBC W/PLT COUNT & AUTO Routine 02/15/2017 3:47 AM WOMEN SPECIALIST Results for this DIFFERENTIAL procedure are in the results section. BASIC METABOLIC PANEL (7) Routine 02/15/2017 3:47 AM WOMEN SPECIALIST POCT-GLUCOSE METER Routine 02/14/2017 9:13 PM WOMEN SPECIALIST POCT-GLUCOSE METER Routine 02/14/2017 4:51 PM WOMEN SPECIALIST POCT-GLUCOSE METER Routine 02/14/2017 12:36 PM WOMEN SPECIALIST POCT-GLUCOSE METER Routine 02/14/2017 6:44 AM WOMEN SPECIALIST CBC W/PLT COUNT & AUTO Routine 02/14/2017 4:14 AM WOMEN SPECIALIST Results for this DIFFERENTIAL procedure are in the results section. MAGNESIUM Routine 02/14/2017 4:14 AM WOMEN SPECIALIST CBC W/PLT COUNT & AUTO Routine 02/14/2017 4:14 AM WOMEN SPECIALIST Results for this DIFFERENTIAL procedure are in the results section. BASIC METABOLIC PANEL (7) Routine 02/14/2017 4:14 AM WOMEN SPECIALIST after 02/14/2017 Results RHYTHM STRIP - SCAN (03/03/2017 2:01 PM WOMEN SPECIALIST)Only the most recent of2 resultswithin the time period is included. Narrative Performed At POC-Glucose meter (02/17/2017 8:29 PM WOMEN SPECIALIST)Only the most recent of13 resultswithin the time period is included. POC-Glucose Meter 175 (H)Comment: TESTED AT 70 - 110 mg/dL [address] [address] Specimen Blood Performing Organization Address City/State/Zipcode Phone Number [address] [address] [phone] CENTER CBC with platelet count + automated diff (02/17/2017 6:11 AM WOMEN SPECIALIST)Only the most recent of4 resultswithin the time period is included. WBC 17.1 (H) 3.5 - 10.5 K/L [facility] RBC 3.96 3.93 - 5.22 M/L [facility] Hemoglobin 10.7 (L) 11.2 - 15.7 GM/DL [facility] Hematocrit 34.8 34.1 - 44.9 % [facility] MCV 87.9 79.4 - 94.8 fL [facility] MCH 27.0 25.6 - 32.2 pg [facility] MCHC 30.7 (L) 32.2 - 35.5 GM/DL [facility] RDW 15.6 (H) 11.7 - 14.4 % [facility] Platelets 334 150 - 450 K/CU MM [facility] MPV 11.1 9.4 - 12.3 fL [facility] nRBC 0 0 - 0 /100 WBC [facility] % Neutros 84 % [facility] % Lymphs 8 % [facility] % Monos 7 % [facility] % Eos 0 % [facility] % Baso 0 % [facility] # Neutros 14.26 (H) 1.56 - 6.13 K/L [facility] # Lymphs 1.43 1.18 - 3.74 K/L [facility] # Monos 1.10 (H) 0.24 - 0.36 K/L [facility] # Eos 0.05 0.04 - 0.36 K/L [facility] # Baso 0.01 0.01 - 0.08 K/L [facility] Immature 1 0 - 1 % [facility] Granulocytes-[facility] Specimen Blood - Arm, Left Performing Organization Address City/[facility] Phone Number [address] [address] [phone] CENTER Magnesium (02/17/2017 6:11 AM WOMEN SPECIALIST)Only the most recent of4 resultswithin the time period is included. Magnesium 2.2 1.6 - 2.6 mg/dL [facility] Specimen Blood - Arm, Left Performing Organization Address City/[facility] Phone Number [address] [address] CENTER Basic Metabolic Panel (02/17/2017 6:11 AM WOMEN SPECIALIST)Only the most recent of4 resultswithin the time period is included. Sodium 133 (L) 136 - 145 meq/L [facility] Potassium 4.3 3.5 - 5.1 meq/L [facility] Chloride 91 (L) 98 - 107 meq/L [facility] CO2 34 (H) 22 - 29 meq/L [facility] BUN 19 7 - 21 mg/dL [facility] Creatinine 0.61 0.57 - 1.25 mg/dL [facility] Glucose 61 (L) 70 - 105 mg/dL [facility] Calcium 8.9 8.4 - 10.2 mg/dL [facility] EGFR 100Comment: ESTIMATED GFR IS mL/min/1.73 sq m [facility] NOT ACCURATE CREATININE [facility] CENTER CLEARANCE IN PREDICTING GLOMERULAR FILTRATION RATE. ESTIMATED GFR IS NOT APPLICABLE FOR DIALYSIS PATIENTS. Specimen Blood - Arm, Left Performing Organization Address City/State/Zipcode Phone Number [facility] [address] [place] [address] [place] ECG 12 lead (02/15/2017 12:09 PM WOMEN SPECIALIST) Narrative Performed At Ventricular Rate 91 BPM GE MUSE Atrial Rate 91 BPM P-R Interval 94 ms QRS Duration 86 ms Q-T Interval 348 ms QTC Calculation(Bazett) 428 ms P Zoar 39 degrees R Zoar 21 degrees T Zoar 65 degrees Sinus rhythm with short MD Moderate voltage criteria for LVH, may be normal variant When compared with ECG of 04-FEB-2017 21:46, Amplitude of the T waves has increased Confirmed by Julieta FREEMAN, KEVYN ([id number]) on 02/16/2017 8:24:59 AM Procedure Note Interface, External Ris In - 02/16/2017 8:25 AM WOMEN SPECIALIST Ventricular Rate 91 BPM Atrial Rate 91 BPM P-R Interval 94 ms QRS Duration 86 ms Q-T Interval 348 ms QTC Calculation(Bazett) 428 ms P Zo[place] 39 degrees R Zoar 21 degrees T [place]ar 65 degrees Sinus rhythm with short MD Moderate voltage criteria for LVH, may be normal variant When compared with ECG of 04-FEB-2017 21:46, Amplitude of the T waves has increased Confirmed by Julieta FREEMAN BASANT ([id number]) on 02/16/2017 8:24:59 AM Performing Organization Address City/State/Zipcode Phone Number GE MUSE after 02/14/2017 Insurance Payer Benefit Plan / Group Subscriber ID Type Phone Address MEDICARE MEDICARE A B xxxxxxxxxx Medicare MEDICAID [place] xxxxxxxxx Medicaid Advance Directives For more information, please contact:[address] [phone] Code Status Date Activated Date Inactivated Comments Full Code 02/04/2017 6:02 PM 02/18/2017 1:43 AM This code status was determined by: Patient
--- OUTSIDE RECORDS SUMMARY | 2018-02-15 09:28 | XMS REPORT ---
:1955 Author Organization [facility] Address Formerly [facility]3 Wiliam Gotti [address] [id number] Care Team Providers Name Role Phone LYNN [...] (BEAKER) (test 175 mg/dL 70-110 TESTED AT [facility] [address] [place] [address] nuns=[id number]) [facility] [address] POCT-GLUCOSE [id number] 08:27:00 Test Item Value Reference Range Comments POC-GLUCOSE METER (BEAKER) 83 mg/dL 70-110 TESTED AT [address] (test hogp=8645) [facility] [address] CBC W/PLT COUNT & AUTO [id number] 07:16:00 Test Item Value Reference Range Comments WHITE BLOOD CELL COUNT (BEAKER) (test xslm=810) 17.1 K/ L 3.5-10.5 RED BLOOD CELL COUNT (BEAKER) (test iovc=134) 3.96 M/ L 3.93-5.22 HEMOGLOBIN (BEAKER) (test ekql=324) 10.7 GM/DL 11.2-15.7 HEMATOCRIT (BEAKER) (test qlwi=176) 34.8 % 34.1-44.9 MEAN CORPUSCULAR VOLUME (BEAKER) (test dprk=813) 87.9 fL 79.4-94.8 MEAN CORPUSCULAR HEMOGLOBIN (BEAKER) (test 27.0 pg 25.6-32.2 gsmf=190) MEAN CORPUSCULAR HEMOGLOBIN CONC (BEAKER) (test 30.7 GM/DL 32.2-35.5 kaqv=526) RED CELL DISTRIBUTION WIDTH (BEAKER) (test 15.6 % 11.7-14.4 rfiu=280) PLATELET COUNT (BEAKER) (test wotk=786) 334 K/CU MM 150-450 MEAN PLATELET VOLUME (BEAKER) (test rkkz=325) 11.1 fL 9.4-12.3 NUCLEATED RED BLOOD CELLS (BEAKER) (test 0 /100 WBC 0-0 ywcy=911) NEUTROPHILS RELATIVE PERCENT (BEAKER) (test 84 % iefu=300) LYMPHOCYTES RELATIVE PERCENT (BEAKER) (test 8 % zhtl=382) MONOCYTES RELATIVE PERCENT (BEAKER) (test 7 % vktn=813) EOSINOPHILS RELATIVE PERCENT (BEAKER) (test 0 % xmbw=608) BASOPHILS RELATIVE PERCENT (BEAKER) (test 0 % hrpu=918) NEUTROPHILS ABSOLUTE COUNT (BEAKER) (test 14.26 K/ L 1.56-6.13 mzeq=580) LYMPHOCYTES ABSOLUTE COUNT (BEAKER) (test 1.43 K/ L 1.18-3.74 dint=203) MONOCYTES ABSOLUTE COUNT (BEAKER) (test 1.10 K/ L 0.24-0.36 okso=282) EOSINOPHILS ABSOLUTE COUNT (BEAKER) (test 0.05 K/ L 0.04-0.36 ecnk=616) BASOPHILS ABSOLUTE COUNT (BEAKER) (test 0.01 K/ L 0.01-0.08 eyao=672) IMMATURE GRANULOCYTES-RELATIVE PERCENT (BEAKER) 1 % 0-1 (test fwgf=7170) [id number] 07:00:00 Test Item Value Reference Range Comments MAGNESIUM (BEAKER) (test xyzl=547) 2.2 mg/dL 1.6-2.6 BASIC METABOLIC [id number] 07:00:00 Test Item Value Reference Range Comments SODIUM (BEAKER) (test 133 meq/L 136-145 tqbn=332) POTASSIUM (BEAKER) (test 4.3 meq/L 3.5-5.1 kpwm=919) CHLORIDE (BEAKER) (test 91 meq/L 98-107 jrup=356) CO2 (BEAKER) (test 34 meq/L 22-29 akts=460) BLOOD UREA NITROGEN 19 mg/dL 7-21 (BEAKER) (test zvpm=798) CREATININE (BEAKER) (test 0.61 mg/dL 0.57-1.25 kqrm=080) GLUCOSE RANDOM (BEAKER) 61 mg/dL 70-105 (test viva=106) CALCIUM (BEAKER) (test 8.9 mg/dL 8.4-10.2 xxna=273) EGFR (BEAKER) (test 100 mL/min/1.73 sq m ESTIMATED GFR IS NOT wxyj=9410) ACCURATE CREATININE CLEARANCE IN PREDICTING GLOMERULAR FILTRATION RATE. ESTIMATED GFR IS NOT APPLICABLE FOR DIALYSIS PATIENTS. POCT-GLUCOSE [id number] 20:42:00 Test Item Value Reference Range Comments POC-GLUCOSE METER (BEAKER) 183 mg/dL 70-110 TESTED AT [address] (test ezta=7849) [facility] [address] POCT-GLUCOSE [id number] 11:38:00 Test Item Value Reference Range Comments POC-GLUCOSE METER (BEAKER) 130 mg/dL 70-110 TESTED AT [address] (test tdla=8400) [place] [id number] POCT-GLUCOSE [id number] 08:08:00 Test Item Value Reference Range Comments POC-GLUCOSE METER (BEAKER) 67 mg/dL 70-110 Will Repeat Test/TESTED AT (test hhya=7643) [address] [address] [id number] 06:51:00 Test Item Value Reference Range Comments MAGNESIUM (BEAKER) (test utxx=710) 2.0 mg/dL 1.6-2.6 BASIC METABOLIC [id number] 06:51:00 Test Item Value Reference Range Comments SODIUM (BEAKER) (test 134 meq/L 136-145 dvvu=568) POTASSIUM (BEAKER) (test 4.4 meq/L 3.5-5.1 yxhh=719) CHLORIDE (BEAKER) (test 92 meq/L 98-107 aybh=939) CO2 (BEAKER) (test 34 meq/L 22-29 anqp=200) BLOOD UREA NITROGEN 17 mg/dL 7-21 (BEAKER) (test kuwj=533) CREATININE (BEAKER) (test 0.56 mg/dL 0.57-1.25 qzds=214) GLUCOSE RANDOM (BEAKER) 66 mg/dL 70-105 (test ebfd=619) CALCIUM (BEAKER) (test 8.8 mg/dL 8.4-10.2 pcxl=746) EGFR (BEAKER) (test 110 mL/min/1.73 sq m ESTIMATED GFR IS NOT gist=6714) ACCURATE CREATININE CLEARANCE IN PREDICTING GLOMERULAR FILTRATION RATE. ESTIMATED GFR IS NOT APPLICABLE FOR DIALYSIS PATIENTS. CBC W/PLT COUNT & AUTO [id number] 06:00:00 Test Item Value Reference Range Comments WHITE BLOOD CELL COUNT (BEAKER) (test abbi=385) 17.0 K/ L 3.5-10.5 RED BLOOD CELL COUNT (BEAKER) (test jftn=697) 4.16 M/ L 3.93-5.22 HEMOGLOBIN (BEAKER) (test yopf=116) 11.1 GM/DL 11.2-15.7 HEMATOCRIT (BEAKER) (test akes=016) 36.3 % 34.1-44.9 MEAN CORPUSCULAR VOLUME (BEAKER) (test tgln=180) 87.3 fL 79.4-94.8 MEAN CORPUSCULAR HEMOGLOBIN (BEAKER) (test 26.7 pg 25.6-32.2 dsac=415) MEAN CORPUSCULAR HEMOGLOBIN CONC (BEAKER) (test 30.6 GM/DL 32.2-35.5 nslq=890) RED CELL DISTRIBUTION WIDTH (BEAKER) (test 15.6 % 11.7-14.4 uhuk=947) PLATELET COUNT (BEAKER) (test cama=377) 293 K/CU MM 150-450 MEAN PLATELET VOLUME (BEAKER) (test jbjw=047) 11.7 fL 9.4-12.3 NUCLEATED RED BLOOD CELLS (BEAKER) (test 0 /100 WBC 0-0 aqjg=358) NEUTROPHILS RELATIVE PERCENT (BEAKER) (test 81 % qpwp=420) LYMPHOCYTES RELATIVE PERCENT (BEAKER) (test 9 % wecg=067) MONOCYTES RELATIVE PERCENT (BEAKER) (test 8 % ovmq=930) EOSINOPHILS RELATIVE PERCENT (BEAKER) (test 1 % gsfq=961) BASOPHILS RELATIVE PERCENT (BEAKER) (test 0 % necx=448) NEUTROPHILS ABSOLUTE COUNT (BEAKER) (test 13.77 K/ L 1.56-6.13 bovx=640) LYMPHOCYTES ABSOLUTE COUNT (BEAKER) (test 1.51 K/ L 1.18-3.74 dfai=192) MONOCYTES ABSOLUTE COUNT (BEAKER) (test 1.35 K/ L 0.24-0.36 jbbr=308) EOSINOPHILS ABSOLUTE COUNT (BEAKER) (test 0.08 K/ L 0.04-0.36 qsxo=458) BASOPHILS ABSOLUTE COUNT (BEAKER) (test 0.04 K/ L 0.01-0.08 pmui=591) IMMATURE GRANULOCYTES-RELATIVE PERCENT (BEAKER) 1 % 0-1 (test eovn=7223) POCT-GLUCOSE [id number] 21:21:00 Test Item Value Reference Range Comments POC-GLUCOSE METER (BEAKER) 177 mg/dL 70-110 TESTED AT [address] (test csqz=9070) [facility] [address] POCT-GLUCOSE [id number] 17:52:00 Test Item Value Reference Range Comments POC-GLUCOSE METER (BEAKER) 191 mg/dL 70-110 TESTED AT [address] (test mtlb=5955) [facility] [address] POCT-GLUCOSE [id number] 11:46:00 Test Item Value Reference Range Comments POC-GLUCOSE METER (BEAKER) 145 mg/dL 70-110 TESTED AT [address] (test nihr=3967) [facility] [address] POCT-GLUCOSE [id number] 07:59:00 Test Item Value Reference Range Comments POC-GLUCOSE METER (BEAKER) 89 mg/dL 70-110 TESTED AT [address] (test wwfr=2773) [facility] [address] [id number] 04:29:00 Test Item Value Reference Range Comments MAGNESIUM (BEAKER) (test wiqt=901) 2.1 mg/dL 1.6-2.6 BASIC METABOLIC [id number] 04:29:00 Test Item Value Reference Range Comments SODIUM (BEAKER) (test 134 meq/L 136-145 ryrn=386) POTASSIUM (BEAKER) (test 4.7 meq/L 3.5-5.1 alzl=676) CHLORIDE (BEAKER) (test 91 meq/L 98-107 wjhu=127) CO2 (BEAKER) (test 36 meq/L 22-29 sgxf=973) BLOOD UREA NITROGEN 14 mg/dL 7-21 (BEAKER) (test laac=669) CREATININE (BEAKER) (test 0.56 mg/dL 0.57-1.25 gcfi=301) GLUCOSE RANDOM (BEAKER) 138 mg/dL 70-105 (test iqql=107) CALCIUM (BEAKER) (test 8.3 mg/dL 8.4-10.2 qosk=080) EGFR (BEAKER) (test 110 mL/min/1.73 sq m ESTIMATED GFR IS NOT tfji=7935) ACCURATE CREATININE CLEARANCE IN PREDICTING GLOMERULAR FILTRATION RATE. ESTIMATED GFR IS NOT APPLICABLE FOR DIALYSIS PATIENTS. CBC W/PLT COUNT & AUTO [id number] 04:18:00 Test Item Value Reference Range Comments WHITE BLOOD CELL COUNT (BEAKER) (test amsf=751) 14.1 K/ L 3.5-10.5 RED BLOOD CELL COUNT (BEAKER) (test pwxo=815) 4.06 M/ L 3.93-5.22 HEMOGLOBIN (BEAKER) (test ggpw=059) 11.1 GM/DL 11.2-15.7 HEMATOCRIT (BEAKER) (test hsho=323) 35.9 % 34.1-44.9 MEAN CORPUSCULAR VOLUME (BEAKER) (test thiq=768) 88.4 fL 79.4-94.8 MEAN CORPUSCULAR HEMOGLOBIN (BEAKER) (test 27.3 pg 25.6-32.2 jaxp=565) MEAN CORPUSCULAR HEMOGLOBIN CONC (BEAKER) (test 30.9 GM/DL 32.2-35.5 zhbr=431) RED CELL DISTRIBUTION WIDTH (BEAKER) (test 15.5 % 11.7-14.4 htwc=226) PLATELET COUNT (BEAKER) (test yyam=509) 309 K/CU MM 150-450 MEAN PLATELET VOLUME (BEAKER) (test ycco=073) 10.7 fL 9.4-12.3 NUCLEATED RED BLOOD CELLS (BEAKER) (test 0 /100 WBC 0-0 jmjx=308) NEUTROPHILS RELATIVE PERCENT (BEAKER) (test 89 % qgyt=370) LYMPHOCYTES RELATIVE PERCENT (BEAKER) (test 5 % kahf=095) MONOCYTES RELATIVE PERCENT (BEAKER) (test 5 % lesh=927) EOSINOPHILS RELATIVE PERCENT (BEAKER) (test 0 % dojd=621) BASOPHILS RELATIVE PERCENT (BEAKER) (test 0 % hzrh=274) NEUTROPHILS ABSOLUTE COUNT (BEAKER) (test 12.50 K/ L 1.56-6.13 lgty=700) LYMPHOCYTES ABSOLUTE COUNT (BEAKER) (test 0.68 K/ L 1.18-3.74 qcfj=847) MONOCYTES ABSOLUTE COUNT (BEAKER) (test 0.74 K/ L 0.24-0.36 anld=657) EOSINOPHILS ABSOLUTE COUNT (BEAKER) (test 0.00 K/ L 0.04-0.36 pqsl=545) BASOPHILS ABSOLUTE COUNT (BEAKER) (test 0.01 K/ L 0.01-0.08 gmar=423) IMMATURE GRANULOCYTES-RELATIVE PERCENT (BEAKER) 1 % 0-1 (test klnd=6899) POCT-GLUCOSE [id number] 21:24:00 Test Item Value Reference Range Comments POC-GLUCOSE METER (BEAKER) 257 mg/dL 70-110 TESTED AT [address] (test odsi=1432) [place] [address] POCT-GLUCOSE [id number] 17:18:00 Test Item Value Reference Range Comments POC-GLUCOSE METER (BEAKER) 171 mg/dL 70-110 TESTED AT [address] (test ussq=9143) [place] [id number] POCT-GLUCOSE [id number] 12:43:00 Test Item Value Reference Range Comments POC-GLUCOSE METER (BEAKER) 178 mg/dL 70-110 TESTED AT [address] (test gkpv=5498) [place] [id number] CBC W/PLT COUNT & AUTO [id number] 09:33:00 Test Item Value Reference Range Comments WHITE BLOOD CELL COUNT (BEAKER) (test axsv=670) 15.2 K/ L 3.5-10.5 RED BLOOD CELL COUNT (BEAKER) (test ntbj=572) 4.36 M/ L 3.93-5.22 HEMOGLOBIN (BEAKER) (test eryy=877) 11.8 GM/DL 11.2-15.7 HEMATOCRIT (BEAKER) (test cdhi=410) 37.6 % 34.1-44.9 MEAN CORPUSCULAR VOLUME (BEAKER) (test rdin=332) 86.2 fL 79.4-94.8 MEAN CORPUSCULAR HEMOGLOBIN (BEAKER) (test 27.1 pg 25.6-32.2 gxcj=543) MEAN CORPUSCULAR HEMOGLOBIN CONC (BEAKER) (test 31.4 GM/DL 32.2-35.5 kphw=760) RED CELL DISTRIBUTION WIDTH (BEAKER) (test 15.6 % 11.7-14.4 uqei=728) PLATELET COUNT (BEAKER) (test ncnt=634) 289 K/CU MM 150-450 MEAN PLATELET VOLUME (BEAKER) (test bykh=533) 12.1 fL 9.4-12.3 NUCLEATED RED BLOOD CELLS (BEAKER) (test 0 /100 WBC 0-0 qtqm=941) NEUTROPHILS RELATIVE PERCENT (BEAKER) (test 78 % pnlc=804) LYMPHOCYTES RELATIVE PERCENT (BEAKER) (test 10 % ekca=934) MONOCYTES RELATIVE PERCENT (BEAKER) (test 10 % hyuv=759) EOSINOPHILS RELATIVE PERCENT (BEAKER) (test 1 % ibwb=504) BASOPHILS RELATIVE PERCENT (BEAKER) (test 0 % xvki=587) NEUTROPHILS ABSOLUTE COUNT (BEAKER) (test 11.75 K/ L 1.56-6.13 csch=018) LYMPHOCYTES ABSOLUTE COUNT (BEAKER) (test 1.54 K/ L 1.18-3.74 mrnu=277) MONOCYTES ABSOLUTE COUNT (BEAKER) (test 1.56 K/ L 0.24-0.36 eulg=587) EOSINOPHILS ABSOLUTE COUNT (BEAKER) (test 0.08 K/ L 0.04-0.36 akhp=713) BASOPHILS ABSOLUTE COUNT (BEAKER) (test 0.03 K/ L 0.01-0.08 ujmv=960) IMMATURE GRANULOCYTES-RELATIVE PERCENT (BEAKER) 1 % 0-1 (test fdgj=2320) POCT-GLUCOSE [id number] 07:00:00 Test Item Value Reference Range Comments POC-GLUCOSE METER (BEAKER) 101 mg/dL 70-110 TESTED AT [facility] [address] [facility] (test kkpp=6614) [facility] [address] [id number] 05:09:00 Test Item Value Reference Range Comments MAGNESIUM (BEAKER) (test 2.3 mg/dL 1.6-2.6 Specimen slightly hemolyzed pglb=348) BASIC METABOLIC [id number] 05:09:00 Test Item Value Reference Range Comments SODIUM (BEAKER) (test 134 meq/L 136-145 mrxx=699) POTASSIUM (BEAKER) (test 5.1 meq/L 3.5-5.1 Specimen slightly fnae=108) hemolyzed CHLORIDE (BEAKER) (test 96 meq/L 98-107 xtfe=879) CO2 (BEAKER) (test 33 meq/L 22-29 urmx=684) BLOOD UREA NITROGEN 13 mg/dL 7-21 (BEAKER) (test xsgn=977) CREATININE (BEAKER) (test 0.48 mg/dL 0.57-1.25 Specimen slightly egyy=192) hemolyzed GLUCOSE RANDOM (BEAKER) 73 mg/dL 70-105 (test sisj=539) CALCIUM (BEAKER) (test 8.3 mg/dL 8.4-10.2 hlgp=342) EGFR (BEAKER) (test 131 mL/min/1.73 sq m ESTIMATED GFR IS NOT ulyt=9765) ACCURATE CREATININE CLEARANCE IN PREDICTING GLOMERULAR FILTRATION RATE. ESTIMATED GFR IS NOT APPLICABLE FOR DIALYSIS PATIENTS. POCT-GLUCOSE [id number] 21:25:00 Test Item Value Reference Range Comments POC-GLUCOSE METER (BEAKER) 334 mg/dL 70-110 Will Repeat Test/TESTED AT (test rkkd=0975) [address] [address] BLOOD GAS, [id number] 12:45:00 Test Item Value Reference Range Comments PH ARTERIAL (BEAKER) (test crdg=219) 7.47 7.35-7.45 PCO2 ARTERIAL (BEAKER) (test vjgw=851) 60 mmHg 35-45 PO2 ARTERIAL (BEAKER) (test jnag=750) 79 mmHg 80-90 O2 SATURATION ARTERIAL (BEAKER) (test fydn=954) 96.2 % 96.0-97.0 HCO3 ARTERIAL (BEAKER) (test grkt=881) 42 mmol/L 21-29 BASE EXCESS ARTERIAL (BEAKER) (test zesj=227) 15.6 mmol/L -2.0-3.0 PATIENT TEMPERATURE (BEAKER) (test kqgf=6025) 36.7 C FIO2 (BEAKER) (test espl=3346) 32.0 % POCT-GLUCOSE [id number] 11:48:00 Test Item Value Reference Range Comments POC-GLUCOSE METER (BEAKER) 140 mg/dL 70-110 TESTED AT [address] (test qhtw=8469) [facility] [address] BASIC METABOLIC [id number] 09:02:00 Test Item Value Reference Range Comments SODIUM (BEAKER) (test 135 meq/L 136-145 gqke=943) POTASSIUM (BEAKER) (test 3.4 meq/L 3.5-5.1 taov=867) CHLORIDE (BEAKER) (test 89 meq/L 98-107 uheq=408) CO2 (BEAKER) (test 43 meq/L 22-29 wvoh=134) BLOOD UREA NITROGEN 15 mg/dL 7-21 (BEAKER) (test bzfe=842) CREATININE (BEAKER) (test 0.48 mg/dL 0.57-1.25 ldwh=492) GLUCOSE RANDOM (BEAKER) 77 mg/dL 70-105 (test hgvn=356) CALCIUM (BEAKER) (test 8.1 mg/dL 8.4-10.2 lfnv=634) EGFR (BEAKER) (test 131 mL/min/1.73 sq m ESTIMATED GFR IS NOT qyyp=6370) ACCURATE CREATININE CLEARANCE IN PREDICTING GLOMERULAR FILTRATION RATE. ESTIMATED GFR IS NOT APPLICABLE FOR DIALYSIS PATIENTS. POCT-GLUCOSE [id number] 06:50:00 Test Item Value Reference Range Comments POC-GLUCOSE METER (BEAKER) 92 mg/dL 70-110 TESTED AT [facility] [address] [facility] (test duwa=9348) [facility] [address] CBC W/PLT COUNT & AUTO [id number] 04:12:00 Test Item Value Reference Range Comments WHITE BLOOD CELL COUNT (BEAKER) (test oeen=237) 11.7 K/ L 3.5-10.5 RED BLOOD CELL COUNT (BEAKER) (test fjby=372) 3.67 M/ L 3.93-5.22 HEMOGLOBIN (BEAKER) (test nvzk=588) 9.9 GM/DL 11.2-15.7 HEMATOCRIT (BEAKER) (test spul=743) 32.5 % 34.1-44.9 MEAN CORPUSCULAR VOLUME (BEAKER) (test fsoh=471) 88.6 fL 79.4-94.8 MEAN CORPUSCULAR HEMOGLOBIN (BEAKER) (test 27.0 pg 25.6-32.2 erzz=045) MEAN CORPUSCULAR HEMOGLOBIN CONC (BEAKER) (test 30.5 GM/DL 32.2-35.5 orrj=946) RED CELL DISTRIBUTION WIDTH (BEAKER) (test 15.2 % 11.7-14.4 olkh=034) PLATELET COUNT (BEAKER) (test bmmh=800) 263 K/CU MM 150-450 MEAN PLATELET VOLUME (BEAKER) (test pxou=842) 10.4 fL 9.4-12.3 NUCLEATED RED BLOOD CELLS (BEAKER) (test 0 /100 WBC 0-0 odwl=673) NEUTROPHILS RELATIVE PERCENT (BEAKER) (test 78 % naca=402) LYMPHOCYTES RELATIVE PERCENT (BEAKER) (test 11 % tftq=323) MONOCYTES RELATIVE PERCENT (BEAKER) (test 10 % axhx=267) EOSINOPHILS RELATIVE PERCENT (BEAKER) (test 0 % iube=191) BASOPHILS RELATIVE PERCENT (BEAKER) (test 0 % onqd=259) NEUTROPHILS ABSOLUTE COUNT (BEAKER) (test 9.19 K/ L 1.56-6.13 aste=692) LYMPHOCYTES ABSOLUTE COUNT (BEAKER) (test 1.26 K/ L 1.18-3.74 amcu=835) MONOCYTES ABSOLUTE COUNT (BEAKER) (test 1.15 K/ L 0.24-0.36 qguw=887) EOSINOPHILS ABSOLUTE COUNT (BEAKER) (test 0.02 K/ L 0.04-0.36 dnqn=485) BASOPHILS ABSOLUTE COUNT (BEAKER) (test 0.01 K/ L 0.01-0.08 wzhx=524) IMMATURE GRANULOCYTES-RELATIVE PERCENT (BEAKER) 1 % 0-1 (test zdgn=1754) POCT-GLUCOSE [id number] 21:22:00 Test Item Value Reference Range Comments POC-GLUCOSE METER (BEAKER) 198 mg/dL 70-110 TESTED AT [address] (test yzet=0885) [place] [address] POCT-GLUCOSE [id number] 16:57:00 Test Item Value Reference Range Comments POC-GLUCOSE METER (BEAKER) 297 mg/dL 70-110 TESTED AT [facility] [address] [facility] (test pshz=7444) [place] [id number] SPUTUM CULTURE + GRAM [id number] 13:17:00 Test Item Value Reference Range Comments CULTURE (BEAKER) (test 4+ Normal respiratory paul axnb=6184) present GRAM STAIN RESULT (BEAKER) 2+ WBCs (test onod=9217) GRAM STAIN RESULT (BEAKER) 0-5 epithelial cells (test bgmf=91956) GRAM STAIN RESULT (BEAKER) 4+ gram negative rods (test bcta=33590) GRAM STAIN RESULT (BEAKER) 4+ gram positive cocci in (test goit=816831) clusters GRAM STAIN RESULT (BEAKER) 1+ yeast with pseudohyphae (test kzxc=257994) CBC W/PLT COUNT & AUTO [id number] 12:07:00 Test Item Value Reference Range Comments WHITE BLOOD CELL COUNT (BEAKER) (test rfay=470) 16.8 K/ L 3.5-10.5 RED BLOOD CELL COUNT (BEAKER) (test yfvm=649) 4.39 M/ L 3.93-5.22 HEMOGLOBIN (BEAKER) (test eyep=606) 12.0 GM/DL 11.2-15.7 HEMATOCRIT (BEAKER) (test dmsf=338) 39.3 % 34.1-44.9 MEAN CORPUSCULAR VOLUME (BEAKER) (test uswi=134) 89.5 fL 79.4-94.8 MEAN CORPUSCULAR HEMOGLOBIN (BEAKER) (test 27.3 pg 25.6-32.2 xbsr=723) MEAN CORPUSCULAR HEMOGLOBIN CONC (BEAKER) (test 30.5 GM/DL 32.2-35.5 jbzj=038) RED CELL DISTRIBUTION WIDTH (BEAKER) (test 15.3 % 11.7-14.4 alkw=390) PLATELET COUNT (BEAKER) (test wadf=818) 312 K/CU MM 150-450 MEAN PLATELET VOLUME (BEAKER) (test ssic=081) 10.9 fL 9.4-12.3 NUCLEATED RED BLOOD CELLS (BEAKER) (test 0 /100 WBC 0-0 cnru=297) NEUTROPHILS RELATIVE PERCENT (BEAKER) (test 89 % wsnx=729) LYMPHOCYTES RELATIVE PERCENT (BEAKER) (test 3 % ggds=062) MONOCYTES RELATIVE PERCENT (BEAKER) (test 7 % jjcf=720) EOSINOPHILS RELATIVE PERCENT (BEAKER) (test 0 % myoe=288) BASOPHILS RELATIVE PERCENT (BEAKER) (test 0 % kmxp=886) NEUTROPHILS ABSOLUTE COUNT (BEAKER) (test 15.01 K/ L 1.56-6.13 rchz=537) LYMPHOCYTES ABSOLUTE COUNT (BEAKER) (test 0.56 K/ L 1.18-3.74 whxb=185) MONOCYTES ABSOLUTE COUNT (BEAKER) (test 1.11 K/ L 0.24-0.36 djwr=721) EOSINOPHILS ABSOLUTE COUNT (BEAKER) (test 0.00 K/ L 0.04-0.36 naca=707) BASOPHILS ABSOLUTE COUNT (BEAKER) (test 0.02 K/ L 0.01-0.08 rlzv=813) IMMATURE GRANULOCYTES-RELATIVE PERCENT (BEAKER) 1 % 0-1 (test iwxo=8463) POCT-GLUCOSE [id number] 11:54:00 Test Item Value Reference Range Comments POC-GLUCOSE METER (BEAKER) 179 mg/dL 70-110 TESTED AT [address] (test gigs=2061) [place] [address] BASIC METABOLIC [id number] 04:52:00 Test Item Value Reference Range Comments SODIUM (BEAKER) (test 137 meq/L 136-145 qblx=279) POTASSIUM (BEAKER) (test 3.8 meq/L 3.5-5.1 wqrh=691) CHLORIDE (BEAKER) (test 93 meq/L 98-107 nmfa=730) CO2 (BEAKER) (test 36 meq/L 22-29 soyx=212) BLOOD UREA NITROGEN 17 mg/dL 7-21 (BEAKER) (test dnrs=147) CREATININE (BEAKER) (test 0.54 mg/dL 0.57-1.25 iwpm=004) GLUCOSE RANDOM (BEAKER) 103 mg/dL 70-105 (test kelt=635) CALCIUM (BEAKER) (test 8.5 mg/dL 8.4-10.2 kpcg=213) EGFR (BEAKER) (test 115 mL/min/1.73 sq m ESTIMATED GFR IS NOT tuvj=2582) ACCURATE CREATININE CLEARANCE IN PREDICTING GLOMERULAR FILTRATION RATE. ESTIMATED GFR IS NOT APPLICABLE FOR DIALYSIS PATIENTS. POCT-GLUCOSE [id number] 21:10:00 Test Item Value Reference Range Comments POC-GLUCOSE METER (BEAKER) 289 mg/dL 70-110 TESTED AT [address] (test gsfh=3106) [place] [address] CBC W/PLT COUNT & AUTO [id number] 15:29:00 Test Item Value Reference Range Comments WHITE BLOOD CELL COUNT (BEAKER) (test uhga=574) 20.2 K/ L 3.5-10.5 RED BLOOD CELL COUNT (BEAKER) (test aifr=566) 4.70 M/ L 3.93-5.22 HEMOGLOBIN (BEAKER) (test dogs=156) 12.6 GM/DL 11.2-15.7 HEMATOCRIT (BEAKER) (test ecey=740) 43.3 % 34.1-44.9 MEAN CORPUSCULAR VOLUME (BEAKER) (test mldq=555) 92.1 fL 79.4-94.8 MEAN CORPUSCULAR HEMOGLOBIN (BEAKER) (test 26.8 pg 25.6-32.2 rgdt=381) MEAN CORPUSCULAR HEMOGLOBIN CONC (BEAKER) (test 29.1 GM/DL 32.2-35.5 luvp=720) RED CELL DISTRIBUTION WIDTH (BEAKER) (test 15.2 % 11.7-14.4 fimm=528) PLATELET COUNT (BEAKER) (test tibl=266) 301 K/CU MM 150-450 MEAN PLATELET VOLUME (BEAKER) (test rdih=609) 11.0 fL 9.4-12.3 NUCLEATED RED BLOOD CELLS (BEAKER) (test 0 /100 WBC 0-0 albf=172) NEUTROPHILS RELATIVE PERCENT (BEAKER) (test 95 % wxxi=331) LYMPHOCYTES RELATIVE PERCENT (BEAKER) (test 2 % bzpk=312) MONOCYTES RELATIVE PERCENT (BEAKER) (test 2 % sxkl=425) EOSINOPHILS RELATIVE PERCENT (BEAKER) (test 0 % szef=132) BASOPHILS RELATIVE PERCENT (BEAKER) (test 0 % txgc=556) NEUTROPHILS ABSOLUTE COUNT (BEAKER) (test 19.18 K/ L 1.56-6.13 zafd=799) LYMPHOCYTES ABSOLUTE COUNT (BEAKER) (test 0.40 K/ L 1.18-3.74 zlso=417) MONOCYTES ABSOLUTE COUNT (BEAKER) (test 0.37 K/ L 0.24-0.36 hncz=416) EOSINOPHILS ABSOLUTE COUNT (BEAKER) (test 0.00 K/ L 0.04-0.36 noll=073) BASOPHILS ABSOLUTE COUNT (BEAKER) (test 0.04 K/ L 0.01-0.08 iqpx=031) IMMATURE GRANULOCYTES-RELATIVE PERCENT (BEAKER) 1 % 0-1 (test cqfw=5594) POCT-GLUCOSE [id number] 13:19:00 Test Item Value Reference Range Comments POC-GLUCOSE METER (BEAKER) 198 mg/dL 70-110 TESTED AT [facility] [address] (test peox=4925) [facility] [address] BODY FLUID CULTURE + GRAM [id number] 11:22:00 Test Item Value Reference Range Comments CULTURE (BEAKER) (test fgsd=1778) No growth GRAM STAIN RESULT (BEAKER) (test <1+ WBCs unrh=2213) GRAM STAIN RESULT (BEAKER) (test No organisms seen fgau=05682) RAD, CHEST, 1 VIEW, NON [id number] 08:47:00Reason for exam:->sobShould this be performed at [...] MDReport Verified Date/Time: 02/11/2017 08:47:53 Reading Location: [address] Neuro Reading Room BASIC METABOLIC [id number] 07:36:00 Test Item Value Reference Range Comments SODIUM (BEAKER) (test 138 meq/L 136-145 svnj=340) POTASSIUM (BEAKER) (test 3.7 meq/L 3.5-5.1 hgqn=382) CHLORIDE (BEAKER) (test 96 meq/L 98-107 uxef=951) CO2 (BEAKER) (test 33 meq/L 22-29 aeun=829) BLOOD UREA NITROGEN 18 mg/dL 7-21 (BEAKER) (test htmk=201) CREATININE (BEAKER) (test 0.61 mg/dL 0.57-1.25 bweo=157) GLUCOSE RANDOM (BEAKER) 247 mg/dL 70-105 (test ebgo=550) CALCIUM (BEAKER) (test 8.4 mg/dL 8.4-10.2 ceao=193) EGFR (BEAKER) (test 100 mL/min/1.73 sq m ESTIMATED GFR IS NOT dkhu=2544) ACCURATE CREATININE CLEARANCE IN PREDICTING GLOMERULAR FILTRATION RATE. ESTIMATED GFR IS NOT APPLICABLE FOR DIALYSIS PATIENTS. POCT-GLUCOSE [id number] 22:00:00 Test Item Value Reference Range Comments POC-GLUCOSE METER (BEAKER) 366 mg/dL 70-110 Will Repeat Test/TESTED AT (test rbwp=8205) [facility] [address] [facility] [address] (MANUAL DIFFERENTIAL)2017-02-10 19:58:00 Test Item Value Reference Range Comments NEUTROPHILS - REL (DIFF) (BEAKER) (test 89 % pmcs=1988) LYMPHOCYTES - REL (DIFF) (BEAKER) (test 2 % quqx=2323) MONOCYTES - REL (DIFF) (BEAKER) (test tepa=9651) 6 % BANDS - REL (DIFF) (BEAKER) (test bgqp=7815) 3 % 0-10 NEUTROPHILS - ABS (DIFF) (BEAKER) (test 24.21 K/ L 1.80-8.00 dxsi=5793) LYMPHOCYTES - ABS (DIFF) (BEAKER) (test 0.54 K/ L 1.48-4.50 tvpg=7058) MONOCYTES - ABS (DIFF) (BEAKER) (test nyuc=4595) 1.63 K/ L 0.00-1.30 BANDS-ABS (DIFF) (BEAKER) (test qlnx=1234) 0.8 K/ L 0.0-0.8 TOTAL COUNTED (BEAKER) (test qzky=6420) 100 BANDS + SEGMENTED NEUTROPHILS (BEAKER) (test 25.02 gkmz=5052) WBC MORPHOLOGY (BEAKER) (test rmcd=613) Normal PLT MORPHOLOGY (BEAKER) (test jpgv=505) Normal RBC MORPHOLOGY (BEAKER) (test sjlr=318) Normal CBC W/PLT COUNT & AUTO [id number] 19:57:00 Test Item Value Reference Range Comments WHITE BLOOD CELL COUNT (BEAKER) (test xhay=934) 27.2 K/ L 3.5-10.5 RED BLOOD CELL COUNT (BEAKER) (test tvxg=126) 4.46 M/ L 3.93-5.22 HEMOGLOBIN (BEAKER) (test qkvi=444) 12.1 GM/DL 11.2-15.7 HEMATOCRIT (BEAKER) (test guke=090) 42.9 % 34.1-44.9 MEAN CORPUSCULAR VOLUME (BEAKER) (test glab=610) 96.2 fL 79.4-94.8 MEAN CORPUSCULAR HEMOGLOBIN (BEAKER) (test 27.1 pg 25.6-32.2 lvwz=601) MEAN CORPUSCULAR HEMOGLOBIN CONC (BEAKER) (test 28.2 GM/DL 32.2-35.5 buff=655) RED CELL DISTRIBUTION WIDTH (BEAKER) (test 15.6 % 11.7-14.4 orpr=064) PLATELET COUNT (BEAKER) (test tclt=432) 318 K/CU MM 150-450 MEAN PLATELET VOLUME (BEAKER) (test favc=730) 11.0 fL 9.4-12.3 NUCLEATED RED BLOOD CELLS (BEAKER) (test 0 /100 WBC 0-0 czpt=598) IMMATURE GRANULOCYTES-RELATIVE PERCENT (BEAKER) 1 % 0-1 (test nrde=4140) POCT-GLUCOSE [id number] 17:32:00 Test Item Value Reference Range Comments POC-GLUCOSE METER (BEAKER) 213 mg/dL 70-110 TESTED AT [place] [id number] [facility] (test hrmy=8225) [facility] [address] BLOOD GAS, [id number] 14:31:00 Test Item Value Reference Range Comments PH ARTERIAL (BEAKER) (test grne=873) 7.31 7.35-7.45 PCO2 ARTERIAL (BEAKER) (test nmfl=796) 70 mmHg 35-45 PO2 ARTERIAL (BEAKER) (test ammb=698) 50 mmHg 80-90 O2 SATURATION ARTERIAL (BEAKER) (test onat=841) 78.5 % 96.0-97.0 HCO3 ARTERIAL (BEAKER) (test jdqv=070) 34 mmol/L 21-29 BASE EXCESS ARTERIAL (BEAKER) (test rgjm=000) 6.2 mmol/L -2.0-3.0 PATIENT TEMPERATURE (BEAKER) (test ypfx=1841) 37.5 C FIO2 (BEAKER) (test show=0165) 21.0 % BLOOD GAS, [id number] 12:37:00 Test Item Value Reference Range Comments PH ARTERIAL (BEAKER) (test kbym=212) 7.27 7.35-7.45 PCO2 ARTERIAL (BEAKER) (test jrxo=011) 76 mmHg 35-45 PO2 ARTERIAL (BEAKER) (test ibap=349) 123 mmHg 80-90 O2 SATURATION ARTERIAL (BEAKER) (test vtor=977) 97.7 % 96.0-97.0 HCO3 ARTERIAL (BEAKER) (test gqpm=819) 34 mmol/L 21-29 BASE EXCESS ARTERIAL (BEAKER) (test mdlf=042) 5.2 mmol/L -2.0-3.0 PATIENT TEMPERATURE (BEAKER) (test xnld=4777) 37.5 C FIO2 (BEAKER) (test jtfo=0298) 36.0 % LACTIC ACID, VENOUS, WHOLE [id number] 10:45:00 Test Item Value Reference Range Comments LACTATE BLOOD VENOUS (2) (BEAKER) (test 1.8 mmol/L 0.5-2.2 xtfp=8892) Effective 07/15/2015: Units/Reference Range ChangeNew: 0.5-2.2 mmol/L Previous: 5 -20 mg/dLBLOOD GAS, [id number] 10:40:00 Test Item Value Reference Range Comments PH ARTERIAL (BEAKER) (test opsa=088) 7.19 7.35-7.45 PCO2 ARTERIAL (BEAKER) (test rnoh=265) 93 mmHg 35-45 PO2 ARTERIAL (BEAKER) (test tfvn=418) 56 mmHg 80-90 O2 SATURATION ARTERIAL (BEAKER) (test bagp=308) 78.6 % 96.0-97.0 HCO3 ARTERIAL (BEAKER) (test ghgu=270) 34 mmol/L 21-29 BASE EXCESS ARTERIAL (BEAKER) (test mltm=709) 3.8 mmol/L -2.0-3.0 PATIENT TEMPERATURE (BEAKER) (test jqdn=8859) 37.5 C FIO2 (BEAKER) (test hctu=1301) 21.0 % BLOOD [id number] 10:00:00 Test Item Value Reference Range Comments CULTURE (BEAKER) (test kfnt=5092) No growth in 5 days POCT-GLUCOSE [id number] 08:06:00 Test Item Value Reference Range Comments POC-GLUCOSE METER (BEAKER) 297 mg/dL 70-110 TESTED AT [address] (test fwbo=0820) [place] [id number] BASIC METABOLIC [id number] 05:28:00 Test Item Value Reference Range Comments SODIUM (BEAKER) (test 136 meq/L 136-145 sdvv=953) POTASSIUM (BEAKER) (test 4.4 meq/L 3.5-5.1 hbba=995) CHLORIDE (BEAKER) (test 98 meq/L 98-107 wwar=851) CO2 (BEAKER) (test 30 meq/L 22-29 quvn=798) BLOOD UREA NITROGEN 23 mg/dL 7-21 (BEAKER) (test mhqo=383) CREATININE (BEAKER) (test 0.82 mg/dL 0.57-1.25 sdev=291) GLUCOSE RANDOM (BEAKER) 388 mg/dL 70-105 (test gnvr=470) CALCIUM (BEAKER) (test 8.6 mg/dL 8.4-10.2 dccp=548) EGFR (BEAKER) (test 71 mL/min/1.73 sq m ESTIMATED GFR IS NOT sxeq=4144) ACCURATE CREATININE CLEARANCE IN PREDICTING GLOMERULAR FILTRATION RATE. ESTIMATED GFR IS NOT APPLICABLE FOR DIALYSIS PATIENTS. BLOOD [id number] 05:02:00 Test Item Value Reference Range Comments CULTURE (BEAKER) (test shjg=6549) No growth in 5 days POCT-GLUCOSE [id number] 21:15:00 Test Item Value Reference Range Comments POC-GLUCOSE METER (BEAKER) 174 mg/dL 70-110 TESTED AT [place] [id number] [facility] (test hylm=1855) [place] [id number] POCT-GLUCOSE [id number] 18:38:00 Test Item Value Reference Range Comments POC-GLUCOSE METER (BEAKER) 202 mg/dL 70-110 TESTED AT [address] (test quzo=6271) [facility] [address] RAD, CHEST, 1 VIEW, NON [id number] 15:27:00Reason for exam:->CoughShould this be performed at [...] Valdovinos MDReport Verified Date/Time:02/09/2017 15:27:55 Reading Location: [facility] Radiology Reading Room POCT-GLUCOSE [id number] 12:21:00 Test Item Value Reference Range Comments POC-GLUCOSE METER (BEAKER) 185 mg/dL 70-110 TESTED AT [facility] [address] [facility] (test hrzg=3696) [facility] [address] POCT-GLUCOSE [id number] 07:52:00 Test Item Value Reference Range Comments POC-GLUCOSE METER (BEAKER) 176 mg/dL 70-110 TESTED AT [address] (test syjl=9554) [place] [id number] BASIC METABOLIC [id number] 05:59:00 Test Item Value Reference Range Comments SODIUM (BEAKER) (test 137 meq/L 136-145 frea=265) POTASSIUM (BEAKER) (test 4.4 meq/L 3.5-5.1 ykwn=372) CHLORIDE (BEAKER) (test 93 meq/L 98-107 test=124) CO2 (BEAKER) (test 40 meq/L 22-29 ivuf=393) BLOOD UREA NITROGEN 16 mg/dL 7-21 (BEAKER) (test cdcd=362) CREATININE (BEAKER) (test 0.50 mg/dL 0.57-1.25 ediw=062) GLUCOSE RANDOM (BEAKER) 181 mg/dL 70-105 (test sllx=781) CALCIUM (BEAKER) (test 8.1 mg/dL 8.4-10.2 ixqy=534) EGFR (BEAKER) (test 125 mL/min/1.73 sq m ESTIMATED GFR IS NOT smbz=2902) ACCURATE CREATININE CLEARANCE IN PREDICTING GLOMERULAR FILTRATION RATE. ESTIMATED GFR IS NOT APPLICABLE FOR DIALYSIS PATIENTS. [id number] 05:04:00 Test Item Value Reference Range Comments MAGNESIUM (BEAKER) (test epvu=743) 2.1 mg/dL 1.6-2.6 CBC W/PLT COUNT & AUTO [id number] 04:50:00 Test Item Value Reference Range Comments WHITE BLOOD CELL COUNT (BEAKER) (test bell=261) 10.6 K/ L 3.5-10.5 RED BLOOD CELL COUNT (BEAKER) (test ooau=702) 3.44 M/ L 3.93-5.22 HEMOGLOBIN (BEAKER) (test veyl=860) 9.3 GM/DL 11.2-15.7 HEMATOCRIT (BEAKER) (test psop=693) 31.9 % 34.1-44.9 MEAN CORPUSCULAR VOLUME (BEAKER) (test jhru=056) 92.7 fL 79.4-94.8 MEAN CORPUSCULAR HEMOGLOBIN (BEAKER) (test 27.0 pg 25.6-32.2 ygen=944) MEAN CORPUSCULAR HEMOGLOBIN CONC (BEAKER) (test 29.2 GM/DL 32.2-35.5 kdrl=011) RED CELL DISTRIBUTION WIDTH (BEAKER) (test 15.4 % 11.7-14.4 wtlf=653) PLATELET COUNT (BEAKER) (test aiph=503) 156 K/CU MM 150-450 MEAN PLATELET VOLUME (BEAKER) (test nlpd=815) 12.0 fL 9.4-12.3 NUCLEATED RED BLOOD CELLS (BEAKER) (test 0 /100 WBC 0-0 pihg=637) NEUTROPHILS RELATIVE PERCENT (BEAKER) (test 90 % kekx=702) LYMPHOCYTES RELATIVE PERCENT (BEAKER) (test 5 % stxq=977) MONOCYTES RELATIVE PERCENT (BEAKER) (test 4 % gmhu=518) EOSINOPHILS RELATIVE PERCENT (BEAKER) (test 0 % hjzs=327) BASOPHILS RELATIVE PERCENT (BEAKER) (test 0 % mygu=382) NEUTROPHILS ABSOLUTE COUNT (BEAKER) (test 9.52 K/ L 1.56-6.13 gbby=777) LYMPHOCYTES ABSOLUTE COUNT (BEAKER) (test 0.48 K/ L 1.18-3.74 llxr=506) MONOCYTES ABSOLUTE COUNT (BEAKER) (test 0.46 K/ L 0.24-0.36 iwfn=826) EOSINOPHILS ABSOLUTE COUNT (BEAKER) (test 0.00 K/ L 0.04-0.36 qjez=357) BASOPHILS ABSOLUTE COUNT (BEAKER) (test 0.01 K/ L 0.01-0.08 blbl=634) IMMATURE GRANULOCYTES-RELATIVE PERCENT (BEAKER) 1 % 0-1 (test eksv=4362) POCT-GLUCOSE [id number] 20:33:00 Test Item Value Reference Range Comments POC-GLUCOSE METER (BEAKER) 200 mg/dL 70-110 TESTED AT [address] (test cnju=4224) [place] [address] POCT-GLUCOSE [id number] 19:24:00 Test Item Value Reference Range Comments POC-GLUCOSE METER (BEAKER) 237 mg/dL 70-110 TESTED AT [address] (test vlev=0146) [place] [address] POCT-GLUCOSE [id number] 11:09:00 Test Item Value Reference Range Comments POC-GLUCOSE METER (BEAKER) 301 mg/dL 70-110 TESTED AT [address] (test ldor=1821) [place] [address] HEMOGLOBIN [id number] 10:56:00 Test Item Value Reference Range Comments HEMOGLOBIN A1C (BEAKER) (test nmvv=110) 5.8 % 4.3-6.1 POCT-GLUCOSE [id number] 07:55:00 Test Item Value Reference Range Comments POC-GLUCOSE METER (BEAKER) 216 mg/dL 70-110 TESTED AT [address] (test lgxt=2254) [place] [address] HEPATITIS C PCR, [id number] 05:55:00 Test Item Value Reference Range Comments HCV RESULT COMPONENT (BEAKER) HCV RNA not detected HCV RNA not detected (test ajcr=2795) This test uses a Real-Time Polymerase Chain Reaction (RT-PCR) methodology and was performed using ANN Ampliprep/ANN TaqMan HCV test kit version 2.0 ( [employer]Reportable range for this assay is 15 - 100,000, 000 IU per mL (1.18 - 8.00 Log IU/mL).This test uses a Real-Time Polymerase Chain Reaction (RT-PCR) methodology and was performed using ANN Ampliprep/ ANN TaqMan HCV test kit version 2.0 ([employer]) .Reportable range for this assay is 15 - 100,000,000 IU per mL (1.18 - 8.00 Log IU/mL).[id number] 05:50:00 Test Item Value Reference Range Comments MAGNESIUM (BEAKER) (test fost=020) 2.0 mg/dL 1.6-2.6 COMPREHENSIVE METABOLIC [id number] 05:50:00 Test Item Value Reference Range Comments TOTAL PROTEIN (BEAKER) 6.0 gm/dL 6.0-8.3 (test uisi=553) ALBUMIN (BEAKER) (test 3.2 g/dL 3.5-5.0 silx=6162) ALKALINE PHOSPHATASE 97 U/L 40-150 (BEAKER) (test plni=291) BILIRUBIN TOTAL (BEAKER) 0.3 mg/dL 0.2-1.2 (test bxlw=949) SODIUM (BEAKER) (test 139 meq/L 136-145 ozic=729) POTASSIUM (BEAKER) (test 4.7 meq/L 3.5-5.1 ggrx=103) CHLORIDE (BEAKER) (test 96 meq/L 98-107 dapb=928) CO2 (BEAKER) (test 37 meq/L 22-29 vnwa=698) BLOOD UREA NITROGEN 12 mg/dL 7-21 (BEAKER) (test nzdi=442) CREATININE (BEAKER) (test 0.54 mg/dL 0.57-1.25 rsti=906) GLUCOSE RANDOM (BEAKER) 172 mg/dL 70-105 (test vxwy=008) CALCIUM (BEAKER) (test 8.7 mg/dL 8.4-10.2 voaz=520) AST (SGOT) (BEAKER) (test 33 U/L 5-34 vlyl=464) ALT (SGPT) (BEAKER) (test 33 U/L 6-55 opeu=205) EGFR (BEAKER) (test 115 mL/min/1.73 sq ESTIMATED GFR IS NOT srtw=9596) m ACCURATE CREATININE CLEARANCE IN PREDICTING GLOMERULAR FILTRATION RATE. ESTIMATED GFR IS NOT APPLICABLE FOR DIALYSIS PATIENTS. CBC W/PLT COUNT & AUTO [id number] 05:32:00 Test Item Value Reference Range Comments WHITE BLOOD CELL COUNT (BEAKER) (test psaa=317) 17.0 K/ L 3.5-10.5 RED BLOOD CELL COUNT (BEAKER) (test wogg=851) 3.42 M/ L 3.93-5.22 HEMOGLOBIN (BEAKER) (test vusw=739) 9.4 GM/DL 11.2-15.7 HEMATOCRIT (BEAKER) (test syxp=153) 32.0 % 34.1-44.9 MEAN CORPUSCULAR VOLUME (BEAKER) (test vbsn=313) 93.6 fL 79.4-94.8 MEAN CORPUSCULAR HEMOGLOBIN (BEAKER) (test 27.5 pg 25.6-32.2 iolm=431) MEAN CORPUSCULAR HEMOGLOBIN CONC (BEAKER) (test 29.4 GM/DL 32.2-35.5 qovf=661) RED CELL DISTRIBUTION WIDTH (BEAKER) (test 15.6 % 11.7-14.4 aavp=188) PLATELET COUNT (BEAKER) (test povm=677) 169 K/CU MM 150-450 MEAN PLATELET VOLUME (BEAKER) (test ezlx=754) 11.0 fL 9.4-12.3 NUCLEATED RED BLOOD CELLS (BEAKER) (test 0 /100 WBC 0-0 xyeg=877) NEUTROPHILS RELATIVE PERCENT (BEAKER) (test 91 % hmen=075) LYMPHOCYTES RELATIVE PERCENT (BEAKER) (test 4 % xpxa=999) MONOCYTES RELATIVE PERCENT (BEAKER) (test 5 % ezuv=952) EOSINOPHILS RELATIVE PERCENT (BEAKER) (test 0 % xben=023) BASOPHILS RELATIVE PERCENT (BEAKER) (test 0 % nerm=335) NEUTROPHILS ABSOLUTE COUNT (BEAKER) (test 15.41 K/ L 1.56-6.13 ydnq=387) LYMPHOCYTES ABSOLUTE COUNT (BEAKER) (test 0.60 K/ L 1.18-3.74 bhtv=719) MONOCYTES ABSOLUTE COUNT (BEAKER) (test 0.78 K/ L 0.24-0.36 twug=987) EOSINOPHILS ABSOLUTE COUNT (BEAKER) (test 0.00 K/ L 0.04-0.36 xmpt=360) BASOPHILS ABSOLUTE COUNT (BEAKER) (test 0.01 K/ L 0.01-0.08 rnzq=895) IMMATURE GRANULOCYTES-RELATIVE PERCENT (BEAKER) 1 % 0-1 (test wfkb=7269) POCT-GLUCOSE [id number] 22:20:00 Test Item Value Reference Range Comments POC-GLUCOSE METER (BEAKER) 323 mg/dL 70-110 Notified GUS PRATT/TESTED AT [facility] (test pvkr=5390) [address] [facility] [address] BODY FLUID CELL COUNT WITH [id number] 21:00:00 Test Item Value Reference Range Comments APPEARANCE FLUID (BEAKER) (test deya=154) Slightly Cloudy Clear COLOR FLUID (BEAKER) (test czqo=627) Yellow Colorless, Straw RBC FLUID (BEAKER) (test ecya=640) 1000 /cu mm <=1 ADJUSTED WBC FLUID (BEAKER) (test 620 /cu mm <=5 yhlf=7944) LINING CELLS (BEAKER) (test dyvv=6144) 74 /cu mm <=1 NEUTROPHILS FLUID (BEAKER) (test bood=2127) 21 % LYMPHS FLUID (BEAKER) (test muff=121) 30 % MONO/MACROPHAGE FLUID (BEAKER) (test 49 % urkv=486) EOSINOPHILS FLUID (BEAKER) (test cmwi=896) 0 % BASO FLUID (BEAKER) (test ruug=889) 0 % CONTAINER BODY FLUID (BEAKER) (test EDTA Tube ytnq=0031) POCT-GLUCOSE [id number] 20:51:00 Test Item Value Reference Range Comments POC-GLUCOSE METER (BEAKER) 343 mg/dL 70-110 Notified GUS PRATT/TESTED AT [facility] (test tvil=2999) [address] [facility] [address] RAD, CHEST, 1 VIEW, NON [id number] 20:12:00Reason for exam:->right pleural effusion s/p thoracentesis [...] MDReport Verified Date/Time: 02/07/2017 20:12:46 Reading Location: [address] Reading Room LACTATE DEHYDROGENASE (LDH), BODY [id number] 19:12:00 Test Item Value Reference Range Comments LACTATE DEHYDROGENASE FLUID (BEAKER) < U/L Light's criteria identifies (test rizl=138) effusions if one or more are pre Absence of reference range indicates that normals have not been defined.Assay performance has not been validated for this type of specimen.PROTEIN, BODY [id number] 19:12:00 Test Item Value Reference Range Comments PROTEIN FLUID (BEAKER) (test 1.8 g/dL Light's criteria identifies ionj=243) effusions if one or more are pre Absence of reference range indicates that normals have not been defined.Assay performance has not been validated for this type of specimen.POCT-GLUCOSE [id number] 18:28:00 Test Item Value Reference Range Comments POC-GLUCOSE METER (BEAKER) 272 mg/dL 70-110 TESTED AT [address] (test cstz=6232) [place] [address] U/S, [id number] 18:23:00Laterality?->RightReason for exam:-> Diagnostic and therapeutic thorcaentesisFINAL [...] was prepped and anesthetized and a 5 Singaporean needle/catheter was inserted into the right pleural space. Four 25 cc of yellowish fluid were removed. A chest x-ray was ordered. CONCLUSION: Ultrasound-guided thoracentesis Signed: Dell Pacheco MDRepst. [facility] Verified Date/Time: 02/07/2017 18:23:13 Reading Location : [facility] [id number] Ultrasound Reading Room URINE [id number] 15:17:00 Test Item Value Reference Range Comments CULTURE (BEAKER) (test >100,000 col/mL Susan glabrata sggi=9930) LACTATE DEHYDROGENASE (LDH)2017-02-07 14:18:00 Test Item Value Reference Range Comments LACTATE DEHYDROGENASE (BEAKER) (test mhre=019) 296 U/L 125-220 [id number] 11:54:00 Test Item Value Reference Range Comments PROTIME (BEAKER) (test ybdw=594) 13.4 seconds 11.7-14.7 INR (BEAKER) (test pqla=151) 1.0 <=5.9 PARTIAL THROMBOPLASTIN TIME (BEAKER) (test 25.9 seconds 22.5-36.0 uoic=437) RECOMMENDED COUMADIN/WARFARIN INR THERAPY RANGESSTANDARD DOSE: 2.0 - 3.0 Includes: PROPHYLAXIS forvenous thrombosis, systemic embolization; TREATMENT for venous thrombosis and/or pulmonary embolus.HIGH RISK: Target INR is 2.5-3.5 for patients with mechanical heart valves.[id number] 05:39:00 Test Item Value Reference Range Comments MAGNESIUM (BEAKER) (test yvcy=213) 1.9 mg/dL 1.6-2.6 COMPREHENSIVE METABOLIC [id number] 05:39:00 Test Item Value Reference Range Comments TOTAL PROTEIN (BEAKER) 6.6 gm/dL 6.0-8.3 (test nayo=695) ALBUMIN (BEAKER) (test 3.5 g/dL 3.5-5.0 suxo=1244) ALKALINE PHOSPHATASE 111 U/L 40-150 (BEAKER) (test qlcm=319) BILIRUBIN TOTAL (BEAKER) < mg/dL 0.2-1.2 (test caly=461) SODIUM (BEAKER) (test 137 meq/L 136-145 jmxs=912) POTASSIUM (BEAKER) (test 3.8 meq/L 3.5-5.1 mdaw=980) CHLORIDE (BEAKER) (test 99 meq/L 98-107 wyzn=840) CO2 (BEAKER) (test 31 meq/L 22-29 jyrh=173) BLOOD UREA NITROGEN 11 mg/dL 7-21 (BEAKER) (test vvpv=525) CREATININE (BEAKER) (test 0.61 mg/dL 0.57-1.25 kfbv=001) GLUCOSE RANDOM (BEAKER) 221 mg/dL 70-105 (test dymz=777) CALCIUM (BEAKER) (test 8.5 mg/dL 8.4-10.2 tqqj=263) AST (SGOT) (BEAKER) (test 12 U/L 5-34 miwh=266) ALT (SGPT) (BEAKER) (test 24 U/L 6-55 dtdu=559) EGFR (BEAKER) (test 100 mL/min/1.73 sq ESTIMATED GFR IS NOT mqzz=0310) m ACCURATE CREATININE CLEARANCE IN PREDICTING GLOMERULAR FILTRATION RATE. ESTIMATED GFR IS NOT APPLICABLE FOR DIALYSIS PATIENTS. LIPID [id number] 05:39:00 Test Item Value Reference Range Comments TRIGLYCERIDES (BEAKER) (test ndlz=967) 101 mg/dL CHOLESTEROL (BEAKER) (test xmwz=252) 134 mg/dL HDL CHOLESTEROL (BEAKER) (test zfce=882) 52 mg/dL LDL CHOLESTEROL CALCULATED (BEAKER) (test 62 mg/dL pgus=324) Triglyceride Reference Range: Low Risk <150 Borderline 150- 199 High Risk 200-499 Very High Risk >=500Cholesterol Reference Range: Low Risk <200 Borderline 200-239 High Risk > 240HDL Cholesterol Reference Range: Low Risk >=60 High Risk <40LDL Cholesterol Reference Range: Optimal <100 Near Optimal 100-129 Borderline 130-159 High 160-189 Very High >=190CBC W/PLT COUNT & AUTO [id number] 04:29:00 Test Item Value Reference Range Comments WHITE BLOOD CELL COUNT (BEAKER) (test datm=139) 11.2 K/ L 3.5-10.5 RED BLOOD CELL COUNT (BEAKER) (test ovar=624) 3.72 M/ L 3.93-5.22 HEMOGLOBIN (BEAKER) (test cydg=207) 10.1 GM/DL 11.2-15.7 HEMATOCRIT (BEAKER) (test jejd=561) 33.8 % 34.1-44.9 MEAN CORPUSCULAR VOLUME (BEAKER) (test tiug=506) 90.9 fL 79.4-94.8 MEAN CORPUSCULAR HEMOGLOBIN (BEAKER) (test 27.2 pg 25.6-32.2 bliz=660) MEAN CORPUSCULAR HEMOGLOBIN CONC (BEAKER) (test 29.9 GM/DL 32.2-35.5 nhgr=456) RED CELL DISTRIBUTION WIDTH (BEAKER) (test 15.7 % 11.7-14.4 gehb=323) PLATELET COUNT (BEAKER) (test kugm=352) 238 K/CU MM 150-450 MEAN PLATELET VOLUME (BEAKER) (test zdin=574) 11.1 fL 9.4-12.3 NUCLEATED RED BLOOD CELLS (BEAKER) (test 0 /100 WBC 0-0 hver=389) NEUTROPHILS RELATIVE PERCENT (BEAKER) (test 87 % wsph=179) LYMPHOCYTES RELATIVE PERCENT (BEAKER) (test 6 % hhfc=408) MONOCYTES RELATIVE PERCENT (BEAKER) (test 5 % unse=819) EOSINOPHILS RELATIVE PERCENT (BEAKER) (test 0 % lgyn=079) BASOPHILS RELATIVE PERCENT (BEAKER) (test 0 % vitt=507) NEUTROPHILS ABSOLUTE COUNT (BEAKER) (test 9.80 K/ L 1.56-6.13 mcxl=338) LYMPHOCYTES ABSOLUTE COUNT (BEAKER) (test 0.72 K/ L 1.18-3.74 asit=034) MONOCYTES ABSOLUTE COUNT (BEAKER) (test 0.57 K/ L 0.24-0.36 jfgy=365) EOSINOPHILS ABSOLUTE COUNT (BEAKER) (test 0.00 K/ L 0.04-0.36 ybju=018) BASOPHILS ABSOLUTE COUNT (BEAKER) (test 0.00 K/ L 0.01-0.08 bhwf=736) IMMATURE GRANULOCYTES-RELATIVE PERCENT (BEAKER) 1 % 0-1 (test ruon=3055) CT, CHEST, WITHOUT [id number] 23:24:00FINAL REPORT INDICATION: 62-year-old female with hypoxia. [...] Verified Date/Time: 02/06/2017 23: 24:50 Reading Location: [facility] C013 Consult Reading Room TSH/FREE T4 IF [id number] 19:48:00 Test Item Value Reference Range Comments THYROID STIMULATING HORMONE (BEAKER) (test 0.47 uIU/mL 0.35-4.94 epgt=672) RESPIRATORY PANEL [id number] 14:57:00 Test Item Value Reference Range Comments HUMAN METAPNEUMOVIRUS (BEAKER) (test Not detected Not detected, Inconclusive pfdw=5082) RHINOVIRUS (BEAKER) (test zank=4662) Not detected Not detected, Inconclusive INFLUENZA A (BEAKER) (test Not detected Not detected, Inconclusive vuaj=9643) INFLUENZA A SUBTYPE H1 (BEAKER) Not detected Not detected, Inconclusive (test xzdi=0960) INFLUENZA A SUBTYPE H3 (BEAKER) Not detected Not detected, Inconclusive (test ghfu=1357) INFLUENZA A SUBTYPE H1-2009 (BEAKER) Not detected Not detected, Inconclusive (test bqwa=2053) INFLUENZA B (BEAKER) (test Not detected Not detected, Inconclusive jypf=9260) RESPIRATORY SYNCYTIAL VIRUS (BEAKER) Not detected Not detected, Inconclusive (test jnek=0880) PARAINFLUENZA VIRUS 1 (BEAKER) (test Not detected Not detected, Inconclusive cawd=4234) PARAINFLUENZA VIRUS 2 (BEAKER) (test Not detected Not detected, Inconclusive witw=9662) PARAINFLUENZA VIRUS 3 (BEAKER) (test Not detected Not detected, Inconclusive jxvv=0533) PARAINFLUENZA VIRUS 4 (BEAKER) (test Not detected Not detected, Inconclusive iwzb=2104) ADENOVIRUS (BEAKER) (test rayj=8458) Not detected Not detected, Inconclusive CORONAVIRUS 229E (BEAKER) (test Not detected Not detected, Inconclusive yexq=2854) CORONAVIRUS HKU1 (BEAKER) (test Not detected Not detected, Inconclusive srgc=9781) CORONAVIRUS NL63 (BEAKER) (test Not detected Not detected, Inconclusive ylig=0699) CORONAVIRUS OC43 (BEAKER) (test Not detected Not detected, Inconclusive hqlc=4272) BORDETELLA PERTUSSIS (BEAKER) (test Not detected Not detected, Inconclusive rirp=0734) CHLAMYDOPHILA PNEUMONIAE (BEAKER) Not detected Not detected, Inconclusive (test afjb=9413) MYCOPLASMA PNEUMONIAE (BEAKER) (test Not detected Not detected, Inconclusive aulr=5240) TROPONIN [id number] 13:31:00 Test Item Value Reference Range Comments TROPONIN I (BEAKER) (test kmul=559) 0.08 ng/mL 0.00-0.03 Troponin I (TnI) levels [...] acute neurological disease, and persistent tachyarrhythmia.VANCOMYCIN LEVEL, [id number] 09:30 :00 Test Item Value Reference Range Comments VANCOMYCIN TROUGH (BEAKER) (test ejhv=328) 8.6 ug/mL 10.0-20.0 [id number] 07:03:00 Test Item Value Reference Range Comments MAGNESIUM (BEAKER) (test igqe=907) 1.7 mg/dL 1.6-2.6 COMPREHENSIVE METABOLIC [id number] 07:03:00 Test Item Value Reference Range Comments TOTAL PROTEIN (BEAKER) 5.6 gm/dL 6.0-8.3 (test xwix=207) ALBUMIN (BEAKER) (test 3.0 g/dL 3.5-5.0 prbk=9415) ALKALINE PHOSPHATASE 106 U/L 40-150 (BEAKER) (test bewo=955) BILIRUBIN TOTAL (BEAKER) < mg/dL 0.2-1.2 (test lvlk=329) SODIUM (BEAKER) (test 136 meq/L 136-145 waxi=899) POTASSIUM (BEAKER) (test 3.8 meq/L 3.5-5.1 peqc=735) CHLORIDE (BEAKER) (test 96 meq/L 98-107 zlht=157) CO2 (BEAKER) (test 33 meq/L 22-29 oaay=464) BLOOD UREA NITROGEN 13 mg/dL 7-21 (BEAKER) (test ugsf=649) CREATININE (BEAKER) (test 0.56 mg/dL 0.57-1.25 jqzh=905) GLUCOSE RANDOM (BEAKER) 250 mg/dL 70-105 (test ocrz=723) CALCIUM (BEAKER) (test 8.3 mg/dL 8.4-10.2 igkw=828) AST (SGOT) (BEAKER) (test 12 U/L 5-34 eyah=488) ALT (SGPT) (BEAKER) (test 24 U/L 6-55 akzt=228) EGFR (BEAKER) (test 110 mL/min/1.73 sq ESTIMATED GFR IS NOT pbkp=7911) m ACCURATE CREATININE CLEARANCE IN PREDICTING GLOMERULAR FILTRATION RATE. ESTIMATED GFR IS NOT APPLICABLE FOR DIALYSIS PATIENTS. TROPONIN [id number] 07:00:00 Test Item Value Reference Range Comments TROPONIN I (BEAKER) (test dtwq=389) 0.10 ng/mL 0.00-0.03 Troponin I (TnI) levels [...] acidosis, acute neurological disease, and persistent tachyarrhythmia.TROPONIN [id number] 07:00:00 Test Item Value Reference Range Comments TROPONIN I (BEAKER) (test liaq=605) 0.09 ng/mL 0.00-0.03 Troponin I (TnI) levels [...] and persistent tachyarrhythmia.CBC W/PLT COUNT & AUTO [id number] 06:20:00 Test Item Value Reference Range Comments WHITE BLOOD CELL COUNT (BEAKER) (test vpoo=155) 10.2 K/ L 3.5-10.5 RED BLOOD CELL COUNT (BEAKER) (test viws=502) 3.35 M/ L 3.93-5.22 HEMOGLOBIN (BEAKER) (test dqxf=325) 9.2 GM/DL 11.2-15.7 HEMATOCRIT (BEAKER) (test wmcc=568) 29.6 % 34.1-44.9 MEAN CORPUSCULAR VOLUME (BEAKER) (test fvfz=659) 88.4 fL 79.4-94.8 MEAN CORPUSCULAR HEMOGLOBIN (BEAKER) (test 27.5 pg 25.6-32.2 yocl=512) MEAN CORPUSCULAR HEMOGLOBIN CONC (BEAKER) (test 31.1 GM/DL 32.2-35.5 womv=173) RED CELL DISTRIBUTION WIDTH (BEAKER) (test 16.1 % 11.7-14.4 tfpn=859) PLATELET COUNT (BEAKER) (test etln=992) 185 K/CU MM 150-450 MEAN PLATELET VOLUME (BEAKER) (test fajj=581) 11.0 fL 9.4-12.3 NUCLEATED RED BLOOD CELLS (BEAKER) (test 0 /100 WBC 0-0 eoxj=369) NEUTROPHILS RELATIVE PERCENT (BEAKER) (test 91 % zifv=703) LYMPHOCYTES RELATIVE PERCENT (BEAKER) (test 4 % sqtc=731) MONOCYTES RELATIVE PERCENT (BEAKER) (test 4 % ydsm=429) EOSINOPHILS RELATIVE PERCENT (BEAKER) (test 0 % atjq=276) BASOPHILS RELATIVE PERCENT (BEAKER) (test 0 % dfwy=695) NEUTROPHILS ABSOLUTE COUNT (BEAKER) (test 9.34 K/ L 1.56-6.13 gleo=849) LYMPHOCYTES ABSOLUTE COUNT (BEAKER) (test 0.37 K/ L 1.18-3.74 peqg=811) MONOCYTES ABSOLUTE COUNT (BEAKER) (test 0.45 K/ L 0.24-0.36 zrmb=516) EOSINOPHILS ABSOLUTE COUNT (BEAKER) (test 0.00 K/ L 0.04-0.36 wbgu=427) BASOPHILS ABSOLUTE COUNT (BEAKER) (test 0.01 K/ L 0.01-0.08 lcvc=878) IMMATURE GRANULOCYTES-RELATIVE PERCENT (BEAKER) 1 % 0-1 (test vkwx=5483) [id number] 13:17:00 Test Item Value Reference Range Comments PROCALCITONIN (BEAKER) (test shbp=6292) 0.26 ng/mL <0.05 SEPSIS RISK (ng/mL)Low: 0.05-0.50Intermediate: 0.51-2.00High: & gt;=2.01POCT-GLUCOSE [id number] 11:40:00 Test Item Value Reference Range Comments POC-GLUCOSE METER (BEAKER) 162 mg/dL 70-110 TESTED AT [address] (test pbkj=2034) [place] [id number] POCT-GLUCOSE [id number] 07:20:00 Test Item Value Reference Range Comments POC-GLUCOSE METER (BEAKER) 97 mg/dL 70-110 TESTED AT [address] (test wxzp=5425) [facility] [address] CBC W/PLT COUNT & AUTO [id number] 06:11:00 Test Item Value Reference Range Comments WHITE BLOOD CELL COUNT (BEAKER) (test jwud=050) 7.2 K/ L 3.5-10.5 RED BLOOD CELL COUNT (BEAKER) (test odka=405) 3.77 M/ L 3.93-5.22 HEMOGLOBIN (BEAKER) (test iavb=050) 10.1 GM/DL 11.2-15.7 HEMATOCRIT (BEAKER) (test vaax=676) 32.9 % 34.1-44.9 MEAN CORPUSCULAR VOLUME (BEAKER) (test ccgw=089) 87.3 fL 79.4-94.8 MEAN CORPUSCULAR HEMOGLOBIN (BEAKER) (test 26.8 pg 25.6-32.2 hqfb=343) MEAN CORPUSCULAR HEMOGLOBIN CONC (BEAKER) (test 30.7 GM/DL 32.2-35.5 dwpa=553) RED CELL DISTRIBUTION WIDTH (BEAKER) (test 16.2 % 11.7-14.4 pdga=207) PLATELET COUNT (BEAKER) (test ocjd=553) 222 K/CU MM 150-450 MEAN PLATELET VOLUME (BEAKER) (test zeda=383) 11.1 fL 9.4-12.3 NUCLEATED RED BLOOD CELLS (BEAKER) (test 0 /100 WBC 0-0 ldgi=758) NEUTROPHILS RELATIVE PERCENT (BEAKER) (test 90 % khfc=741) LYMPHOCYTES RELATIVE PERCENT (BEAKER) (test 7 % yqpq=143) MONOCYTES RELATIVE PERCENT (BEAKER) (test 2 % fsei=234) EOSINOPHILS RELATIVE PERCENT (BEAKER) (test 0 % xapq=534) BASOPHILS RELATIVE PERCENT (BEAKER) (test 0 % reld=191) NEUTROPHILS ABSOLUTE COUNT (BEAKER) (test 6.45 K/ L 1.56-6.13 rcck=394) LYMPHOCYTES ABSOLUTE COUNT (BEAKER) (test 0.53 K/ L 1.18-3.74 rxbj=555) MONOCYTES ABSOLUTE COUNT (BEAKER) (test 0.16 K/ L 0.24-0.36 psmn=396) EOSINOPHILS ABSOLUTE COUNT (BEAKER) (test 0.00 K/ L 0.04-0.36 bufn=298) BASOPHILS ABSOLUTE COUNT (BEAKER) (test 0.01 K/ L 0.01-0.08 yxib=849) IMMATURE GRANULOCYTES-RELATIVE PERCENT (BEAKER) 1 % 0-1 (test rknz=7963) [id number] 05:50:00 Test Item Value Reference Range Comments MAGNESIUM (BEAKER) (test jxya=008) 1.4 mg/dL 1.6-2.6 COMPREHENSIVE METABOLIC [id number] 05:50:00 Test Item Value Reference Range Comments TOTAL PROTEIN (BEAKER) 5.8 gm/dL 6.0-8.3 (test kkkt=363) ALBUMIN (BEAKER) (test 2.9 g/dL 3.5-5.0 yjun=8213) ALKALINE PHOSPHATASE 130 U/L 40-150 (BEAKER) (test mqpl=929) BILIRUBIN TOTAL (BEAKER) 0.4 mg/dL 0.2-1.2 (test pfhv=256) SODIUM (BEAKER) (test 138 meq/L 136-145 xtdv=234) POTASSIUM (BEAKER) (test 3.0 meq/L 3.5-5.1 gvzl=137) CHLORIDE (BEAKER) (test 93 meq/L 98-107 uscb=250) CO2 (BEAKER) (test 32 meq/L 22-29 nzrs=196) BLOOD UREA NITROGEN 19 mg/dL 7-21 (BEAKER) (test ttqi=009) CREATININE (BEAKER) (test 0.63 mg/dL 0.57-1.25 jnzu=295) GLUCOSE RANDOM (BEAKER) 104 mg/dL 70-105 (test wjgm=829) CALCIUM (BEAKER) (test 8.3 mg/dL 8.4-10.2 qduy=847) AST (SGOT) (BEAKER) (test 25 U/L 5-34 egmz=646) ALT (SGPT) (BEAKER) (test 29 U/L 6-55 olit=198) EGFR (BEAKER) (test 96 mL/min/1.73 sq m ESTIMATED GFR IS NOT bktz=0832) ACCURATE CREATININE CLEARANCE IN PREDICTING GLOMERULAR FILTRATION RATE. ESTIMATED GFR IS NOT APPLICABLE FOR DIALYSIS PATIENTS. BLOOD GAS, [id number] 05:06:00 Test Item Value Reference Range Comments PH ARTERIAL (BEAKER) (test dhpz=810) 7.48 7.35-7.45 PCO2 ARTERIAL (BEAKER) (test llqp=529) 49 mmHg 35-45 PO2 ARTERIAL (BEAKER) (test dmti=408) 77 mmHg 80-90 O2 SATURATION ARTERIAL (BEAKER) (test uqow=167) 96.0 % 96.0-97.0 HCO3 ARTERIAL (BEAKER) (test yyvw=171) 36 mmol/L 21-29 BASE EXCESS ARTERIAL (BEAKER) (test ehav=142) 10.7 mmol/L -2.0-3.0 PATIENT TEMPERATURE (BEAKER) (test ixyx=1345) 37.0 C FIO2 (BEAKER) (test zuyf=8413) 24.0 % HEPATITIS C [id number] 01:28:00 Test Item Value Reference Range Comments HEPATITIS C ANTIBODY (BEAKER) (test icfj=727) Equivocal Nonreactive RAPID INFLUENZA A&B [id number] 22:53:00 Test Item Value Reference Range Comments RAPID INFLUENZA A AG (BEAKER) (test Negative Negative, Inconclusive vuyd=0377) RAPID INFLUENZA B AG (BEAKER) (test Negative Negative, Inconclusive rtzr=0411) URINALYSIS W/ [id number] 22:38:00 Test Item Value Reference Range Comments COLOR (BEAKER) (test tfzz=334) Yellow CLARITY (BEAKER) (test arko=470) Clear SPECIFIC GRAVITY UA (BEAKER) (test fhce=718) 1.019 1.001-1.035 PH UA (BEAKER) (test zbbt=403) 5.0 5.0-8.0 PROTEIN UA (BEAKER) (test mxmg=108) 10 mg/dL Negative GLUCOSE UA (BEAKER) (test rzst=999) Negative Negative KETONES UA (BEAKER) (test knqv=632) 80 mg/dL Negative BILIRUBIN UA (BEAKER) (test mcnb=090) Negative Negative BLOOD UA (BEAKER) (test pdbf=123) Negative Negative NITRITE UA (BEAKER) (test kukx=056) Negative Negative LEUKOCYTE ESTERASE UA (BEAKER) (test rqyh=937) Small Negative UROBILINOGEN UA (BEAKER) (test wtns=087) 0.2 mg/dL 0.2-1.0 RBC UA (BEAKER) (test bfra=175) 1 /HPF WBC UA (BEAKER) (test qoby=250) 9 /HPF BACTERIA (BEAKER) (test srzc=530) Rare MUCUS (BEAKER) (test xinl=8954) Rare SQUAMOUS EPITHELIAL (BEAKER) (test tlsf=222) 1 /HPF CASTS (BEAKER) (test xxap=4175) 2 /LPF CRYSTALS, URINE (BEAKER) (test rikg=6897) Rare SOURCE(BEAKER) (test yaab=1611) Urine, [place] HEPATITIS B CORE ANTIBODY, [id number] 22:36:00 Test Item Value Reference Range Comments HEPATITIS B CORE TOTAL ANTIBODY (BEAKER) (test Nonreactive Nonreactive njyd=924) HIV-1 ANTIGEN WITH HIV-1/2 [id number] 22:36:00 Test Item Value Reference Range Comments HIV-1 ANTIGEN WITH HIV 1\T\2 ANTIBODY (2) Nonreactive Nonreactive (BEAKER) (test kvag=5729) PROTHROMBIN [id number] 22:34:00 Test Item Value Reference Range Comments PROTIME (BEAKER) (test icul=646) 14.3 seconds 11.7-14.7 INR (BEAKER) (test hrtb=541) 1.1 <=5.9 RECOMMENDED COUMADIN/WARFARIN INR THERAPY RANGESSTANDARD DOSE: 2.0 - 3.0 Includes: PROPHYLAXIS forvenous thrombosis, systemic embolization; TREATMENT for venous thrombosis and/or pulmonary embolus.HIGH RISK: Target INR is 2.5-3.5 for patients with mechanical heart valves.TROPONIN [id number] 22:24:00 Test Item Value Reference Range Comments TROPONIN I (BEAKER) (test gpat=405) 0.19 ng/mL 0.00-0.03 Troponin I (TnI) levels [...] NATRIURETIC PEPTIDE (BEAKER) (test 364 pg/mL 0-100 uppr=166) [id number] 22:14:00 Test Item Value Reference Range Comments PHOSPHORUS (BEAKER) (test wevr=181) 3.4 mg/dL 2.3-4.7 [id number] 22:14:00 Test Item Value Reference Range Comments MAGNESIUM (BEAKER) (test kmkv=440) 1.7 mg/dL 1.6-2.6 COMPREHENSIVE METABOLIC [id number] 22:14:00 Test Item Value Reference Range Comments TOTAL PROTEIN (BEAKER) 5.5 gm/dL 6.0-8.3 (test yweo=384) ALBUMIN (BEAKER) (test 2.9 g/dL 3.5-5.0 ssdy=7917) ALKALINE PHOSPHATASE 134 U/L 40-150 (BEAKER) (test wfiy=588) BILIRUBIN TOTAL (BEAKER) 0.4 mg/dL 0.2-1.2 (test kkhl=174) SODIUM (BEAKER) (test 138 meq/L 136-145 tpgz=537) POTASSIUM (BEAKER) (test 3.6 meq/L 3.5-5.1 jdfp=749) CHLORIDE (BEAKER) (test 97 meq/L 98-107 nrqt=311) CO2 (BEAKER) (test 31 meq/L 22-29 wbpv=506) BLOOD UREA NITROGEN 20 mg/dL 7-21 (BEAKER) (test tvhh=549) CREATININE (BEAKER) (test 0.58 mg/dL 0.57-1.25 coqs=425) GLUCOSE RANDOM (BEAKER) 75 mg/dL 70-105 (test iggt=879) CALCIUM (BEAKER) (test 8.3 mg/dL 8.4-10.2 ebke=481) AST (SGOT) (BEAKER) (test 31 U/L 5-34 efjn=996) ALT (SGPT) (BEAKER) (test 30 U/L 6-55 seyx=041) EGFR (BEAKER) (test 106 mL/min/1.73 sq ESTIMATED GFR IS NOT jwln=1566) m ACCURATE CREATININE CLEARANCE IN PREDICTING GLOMERULAR FILTRATION RATE. ESTIMATED GFR IS NOT APPLICABLE FOR DIALYSIS PATIENTS. CBC W/PLT COUNT & AUTO [id number] 22:11:00 Test Item Value Reference Range Comments WHITE BLOOD CELL COUNT (BEAKER) (test tdie=340) 6.6 K/ L 3.5-10.5 RED BLOOD CELL COUNT (BEAKER) (test baqq=865) 3.51 M/ L 3.93-5.22 HEMOGLOBIN (BEAKER) (test qbyb=881) 9.7 GM/DL 11.2-15.7 HEMATOCRIT (BEAKER) (test olfy=951) 31.6 % 34.1-44.9 MEAN CORPUSCULAR VOLUME (BEAKER) (test drqa=472) 90.0 fL 79.4-94.8 MEAN CORPUSCULAR HEMOGLOBIN (BEAKER) (test 27.6 pg 25.6-32.2 rstx=556) MEAN CORPUSCULAR HEMOGLOBIN CONC (BEAKER) (test 30.7 GM/DL 32.2-35.5 qtbb=251) RED CELL DISTRIBUTION WIDTH (BEAKER) (test 16.0 % 11.7-14.4 bmyf=218) PLATELET COUNT (BEAKER) (test qlad=016) 197 K/CU MM 150-450 MEAN PLATELET VOLUME (BEAKER) (test ehys=934) 11.0 fL 9.4-12.3 NUCLEATED RED BLOOD CELLS (BEAKER) (test 0 /100 WBC 0-0 tcax=164) NEUTROPHILS RELATIVE PERCENT (BEAKER) (test 92 % yuev=856) LYMPHOCYTES RELATIVE PERCENT (BEAKER) (test 6 % majc=397) MONOCYTES RELATIVE PERCENT (BEAKER) (test 1 % ptye=414) EOSINOPHILS RELATIVE PERCENT (BEAKER) (test 0 % vvcx=093) BASOPHILS RELATIVE PERCENT (BEAKER) (test 0 % hwhm=308) NEUTROPHILS ABSOLUTE COUNT (BEAKER) (test 6.08 K/ L 1.56-6.13 ghlj=871) LYMPHOCYTES ABSOLUTE COUNT (BEAKER) (test 0.40 K/ L 1.18-3.74 bffm=416) MONOCYTES ABSOLUTE COUNT (BEAKER) (test 0.08 K/ L 0.24-0.36 hgjv=250) EOSINOPHILS ABSOLUTE COUNT (BEAKER) (test 0.00 K/ L 0.04-0.36 unvm=588) BASOPHILS ABSOLUTE COUNT (BEAKER) (test 0.01 K/ L 0.01-0.08 rpoc=959) IMMATURE GRANULOCYTES-RELATIVE PERCENT (BEAKER) 1 % 0-1 (test agxq=3213) BLOOD GAS, [id number] 20:15:00 Test Item Value Reference Range Comments PH ARTERIAL (BEAKER) (test vhvs=308) 7.40 7.35-7.45 PCO2 ARTERIAL (BEAKER) (test mqhe=660) 58 mmHg 35-45 PO2 ARTERIAL (BEAKER) (test fvvv=248) 89 mmHg 80-90 O2 SATURATION ARTERIAL (BEAKER) (test wciy=970) 96.6 % 96.0-97.0 HCO3 ARTERIAL (BEAKER) (test nvmr=492) 35 mmol/L 21-29 BASE EXCESS ARTERIAL (BEAKER) (test syhv=557) 8.7 mmol/L -2.0-3.0 PATIENT TEMPERATURE (BEAKER) (test mert=6349) 37.0 C FIO2 (BEAKER) (test lqxw=7629) 24.0 % RAD, CHEST, 1 VIEW, NON [id number] 19:30:00Post-intubationReason for exam:-& gt;transfer from OSH, intubated/respiratory [...] MDReport Verified Date/Time: 02/04/2017 19: 30:53 Reading Location:[address] Reading Room
--- OUTSIDE RECORDS SUMMARY | 2018-02-15 09:29 | XMS REPORT ---
[...] End Status Dosage System Date Date Clonazepam [facility][NOTE 3] 45830547677 1 MG Orally Active 1 tablet Once a day Creon [facility][NOTE 3] 28245220639 12242-05156 Active not defined UNIT Orally Triamcinolone ND 86676100863 0.5 % August Active 1 application Acetonide Externally 11, to affected Twice a day 2017 area Metoprolol ND 61140041867 25 MG Orally Active 1 tablet with Tartrate Twice a day food Albuterol-Ipratro ND 0 2.5-0.5 MG/3ML Active 3 ml pium Inhalation every 6 hrs ProAir RespiClick [facility][NOTE 3] 41778259757 108 (90 Base) Active 2 puffs as MCG/ACT needed Inhalation every 6 hrs Brovana [facility][NOTE 3] 63600998253 15 MCG/2ML Active 2 ml Inhalation Twice a day Protonix [facility][NOTE 3] 06728505753 40 MG Active 1 EACH ONCE A DAY ORALLY Metformin HCl [facility][NOTE 3] 15431641408 500 MG Orally Active 1 tablet with Twice a day meals Magnesium Oxide [facility][NOTE 3] 57339973636 400 MG Orally Active 1 tablet as Once a day needed Pantoprazole [facility][NOTE 3] 64252824787 40 MG Orally May Active 1 tablet Sodium Once a day 2017 Methadone HCl [facility][NOTE 3] 08296745666 10 MG Orally Active 1 tablet Once a day Lasix [facility][NOTE 3] 85343083792 20 MG Orally Active 1 tablet Once a day Medrol [facility][NOTE 3] 57495460492 4 MG Orally August Active as directed 2017 Prolia [facility][NOTE 3] 63217300524 60 MG/ML Active not defined Subcutaneous MiraLax [facility][NOTE 3] 97990251359 - Orally Once Active 1 packet a day mixed with 8 ounces of fluid Ergocalciferol [facility][NOTE 3] 11237292120 13357 UNIT Active 1 capsule Orally Results No Known Results Summary Purpose eClinicalWorks Submission
--- OUTSIDE RECORDS SUMMARY | 2018-02-15 09:29 | XMS REPORT ---
[...] Dosage System Date Date Methadone HCl ND 24307121649 10 MG Orally Active 1 tablet Once a day Protonix [facility] 30647124795 40 MG Active 1 EACH ONCE A DAY ORALLY Brovana ND 91010334842 15 MCG/2ML Active 2 ml Inhalation Twice a day ProAir RespiClick [facility] 47795665967 108 (90 Base) Active 2 puffs as MCG/ACT needed Inhalation every 6 hrs Metoprolol ND 26295283636 25 MG Orally Active 1 tablet Tartrate Twice a day with food Pantoprazole ND 15156964626 40 MG Orally March Active 1 tablet Sodium Once a day 2017 Albuterol-Ipratro ND 0 2.5-0.5 MG/3ML Active 3 ml pium Inhalation every 6 hrs Magnesium Oxide ND 31801310331 400 MG Orally Active 1 tablet Once a day as needed Prolia [facility] 97129064090 60 MG/ML Active not Subcutaneous defined MiraLax [facility] 90979067062 - Orally Once a Active 1 packet day mixed with 8 ounces of fluid Ergocalciferol [facility] 93479509490 14807 UNIT Active 1 capsule Orally Metformin HCl [facility] 52893401422 500 MG Orally Active 1 tablet Twice a day with meals Clonazepam [facility] 49057153318 1 MG Orally Active 1 tablet Once a day Creon [facility] 32636995313 25463-40100 Active not UNIT Orally defined Lasix [facility] 26103995705 20 MG Orally Active 1 tablet Once a day Results No Known Results Summary Purpose eClinicalWorks Submission
[2018-02-15] MEDS ORDERED: HYDROCODONE/APAP 5/325 MG TAB ONE (10:01)
[2018-02-15] MEDS ORDERED: CLINDAMYCIN 600MG/D5W 600 MG/50 ML BAG IV ONE (10:01)
--- NOTE | 2018-02-15 10:25 | RAD REPORT ---
EXAM DESCRIPTION: US - Extremity Venous Uni Ltd - 02/15/2018 10:12 am CLINICAL HISTORY: Pain;Swelling Leg swelling and edema. COMPARISON: Extrem Venous W Compress Suraj dated 03/30/2017 FINDINGS: Left lower extremity venous system was interrogated with Doppler technique. Normal flow, c ompressibility and augmentation was noted. There is no DVT present. IMPRESSION: No evidence of left lower extremity deep venous thrombosis.
[2018-02-15 10:47] LABS: Absolute Lymphocytes (CBC) 0.9 K/uL (0.7-4.9); Absolute Monocytes 0.8 K/uL (0.1-1.3); Absolute Neutrophil 5.9 K/uL (1.8-8.0); Basophils % 0.8 % (0-1.3); Eosinophils % 0.9 % (0-4.4); Lymphocytes % 11.4 % (15.3-44.8); MCH 26.5 pg (27.0-35.0); MCV 83.1 fL (80-100); MPV 9.7 fL (7.6-11.3); Monocytes % 9.9 % (3.3-12.3); RBC Red Blood Cell Count 4.57 M/uL (3.86-4.86)
[2018-02-15 11:28] LABS: BUN Blood Urea Nitrogen 12 mg/dL (7-18); Bicarbonate 34 mmol/L (21-32); Glucose Level 76 mg/dL (74-106); Sodium Level 139 mmol/L (136-145)
--- NOTE | 2018-02-15 11:42 | ER ---
Nurse's Notes [facility] Name: Alee Humphrey Age: 63 yrs Sex: Female : 1955 Arrival Date: 02/15/2018 Time: 09:28 Bed 19 Private MD: Carmen Ahuja Diagnosis: Cellulitis of left lower limb-left foot Presentation: 02/15 09:40 Presenting complaint: Patient states: redness and swelling to top of left foot since iw last night. Transition of care: patient was not received from another setting of care. Onset of symptoms was February 15, 2018. Risk Assessment: Do you want to hurt yourself or someone else? Patient reports no desire to harm self or others. Initial Sepsis Screen: Does the patient meet any 2 criteria? No. Patient's initial sepsis screen is negative. Does the patient have a suspected source of infection? No. Patient's initial sepsis screen is negative. Care prior to arrival: None. 09:40 Method Of Arrival: Wheelchair iw 09:40 Acuity: FARHAT 3 iw Historical: - Allergies: 09:43 Cephalexin Monohydrate; iw 09:43 cyclobenzaprine HCl (Vomiting); iw 09:43 Keflex (Vomiting); iw - Home Meds: 09:43 baclofen 10 mg Oral tab 1 tab every 6 hrs PRN for pain [Active]; clonazepam 1 mg Oral iw tab at bedtime [Active]; 09:40 methadone 10 mg Oral tab 4 times a day PRN for pain [Active]; rb1 - PMHx: 09:43 Anxiety; CHF; chronic back pain; COPD; Depression; iw - PSHx: 09:43 multiple back surgeries; iw 09:40 abdomen; rb1 - Immunization history:: Adult Immunizations not up to date. - Social history:: Smoking status: Patient uses tobacco products, smokes one-half pack cigarettes per day. - Ebola Screening: : Patient negative for fever greater than or equal to 101.5 degrees Fahrenheit, and additional compatible Ebola Virus Disease symptoms Patient denies exposure to infectious person Patient denies travel to an Ebola-affected area in the 21 days before illness onset No symptoms or risks identified at this time. Screenin:40 Abuse screen: Denies threats or abuse. Nutritional screening: No deficits noted. rb1 Tuberculosis screening: No symptoms or risk factors identified. Fall Risk None identified. Assessment: 09:40 General: Appears uncomfortable, Behavior is calm, cooperative, Denies fever. Pain: rb1 Complains of pain in dorsum of left foot Pain currently is 8 out of 10 on a pain scale. Pain began Last night. Neuro: Level of Consciousness is awake, alert, obeys commands, Oriented to person, place, time, situation. Cardiovascular: Capillary refill < 3 seconds is brisk in bilateral fingers. Respiratory: Airway is patent Respiratory effort is even, unlabored, Respiratory pattern is regular, symmetrical. GI: No signs and/or symptoms were reported involving the gastrointestinal system. : No signs and/or symptoms were reported regarding the genitourinary system. Derm: Skin is dry, Skin is normal, Skin temperature is warm. Musculoskeletal: Range of motion: intact in all extremities, Swelling present in left foot redness noted to dorsum of left foot. 10:40 Reassessment: Patient appears in no apparent distress at this time. Patient and/or rb1 family updated on plan of care and expected duration. Pain level reassessed. Patient is alert, oriented x 3, equal unlabored respirations, skin warm/dry/pink. 11:44 Reassessment: Patient appears in no apparent distress at this time. No changes from rb1 previously documented assessment. Discharge pending due to clindamycin infusing. 12:01 Reassessment: discharge pending due to NS 1000 ml bolus infusing. rb1 13:09 Reassessment: Patient appears in no apparent distress at this time. Patient and/or ch family updated on plan of care and expected duration. Pain level reassessed. Patient is alert, oriented x 3, equal unlabored respirations, skin warm/dry/pink. Patient states feeling better. Patient states symptoms have improved. Vital Signs: 09:43 BP 102 / 73; Pulse 94; Resp 16; Temp 98.3; Pulse Ox 95% on R/A; Weight 47.63 kg; Pain iw 8/10; 10:43 BP 93 / 62; Pulse 65; Resp 16; Pulse Ox 98% on R/A; dh3 11:30 BP 88 / 66; Pulse 60; Resp 17; Pulse Ox 90% on R/A; rb1 11:44 BP 84 / 62; Pulse 73; Resp 19; Pulse Ox 96% on R/A; rb1 11:44 rb1 12:44 BP 110 / 62; Pulse 71; Resp 18; Pulse Ox 98% on R/A; rb1 13:09 BP 102 / 74; Pulse 78; Resp 18; Temp 98.2; Pulse Ox 96% on R/A; Pain 5/10; ch 11:44 provider notified; received order for NS 1000 ml bolus x 1. rb1 ED Course: 09:28 Patient arrived in ED. sb2 09:28 Carmen Ahuja MD is Private Physician. sb2 09:30 [facility] kb 09:30 Hal Andre MD is Attending Physician. kb 09:33 Sommer Eason, GUS is Primary Nurse. rb1 09:40 Patient has correct armband on for positive identification. Bed in low position. Call rb1 light in reach. Side rails up X 1. Pulse ox on. NIBP on. 09:42 Triage completed. iw 09:43 Arm band placed on. iw 10:12 Ultrasound completed. Patient moved back from ultrasound. aa4 10:13 US Extremity Venous Unilateral Ltd In Process Unspecified. EDMS 11:03 Lab(s) recollected, by me, sent to lab. dh3 11:22 Second set of blood cultures drawn by me, by venipuncture 23G to left ac. dh3 13:11 No provider procedures requiring assistance completed. IV discontinued, intact, rb1 bleeding controlled, No redness/swelling at site. Pressure dressing applied. Administered Medications: 10:25 Drug: Kevin 5 mg-325 mg 1 tabs Route: PO; rb1 11:00 Follow up: Response: No adverse reaction; Pain is decreased rb1 11:30 Drug: Clindamycin 600 mg Route: IVPB; Infused Over: 30 mins; Site: right forearm; rb1 11:56 Follow up: Response: No adverse reaction; IV Status: Completed infusion rb1 11:57 Drug: NS 0.9% 1000 ml Route: IV; Rate: 1000 ml; Site: right forearm; rb1 13:10 Follow up: IV Status: Completed infusion; IV Intake: 1000ml ch Intake: 13:10 IV: 1000ml; Total: 1000ml. ch Outcome: 11:41 Discharge ordered by . kb 13:11 Discharged to home via wheelchair. ch 13:11 Condition: improved 13:11 Discharge instructions given to patient, Instructed on discharge instructions, follow up and referral plans. medication usage, Demonstrated understanding of instructions, follow-up care, medications, Prescriptions given X 1. 13:11 Patient left the ED. Signatures: Dispatcher [employer] EDAna Mcclure, CHRIS-Sarah PEREZ-Shahida Jacobo, RN RN Ratna Lynn RN RN Makenzie Delgado aa4 Sommer Eason RN RN [facility] Geovanna Mulligan 3 Ariane Saez 2
--- NOTE | 2018-02-15 11:42 | EDPHYS ---
Physician Documentation [facility] Name: Alee Humphrey Age: 63 yrs Sex: Female : 1955 Arrival Date: 02/15/2018 Time: 09:28 Bed 19 Private MD: Carmen Ahuja ED Physician Hal Andre HPI: 02/15 10:15 This 63 yrs old Female presents to ER via Wheelchair with complaints of Foot kb Pain. 10:16 The patient presents with cellulitis of the dorsum of left foot. Description: kb erythematous, hot, swollen. Onset: The symptoms/episode began/occurred yesterday. Possible cause(s): unknown. Associated signs and symptoms: Pertinent positives: erythema, swelling, Pertinent negatives: discharge, drainage, foreign body sensation, fever, headache, nausea, shortness of breath, vomiting. Modifying factors: the symptoms are alleviated by nothing, the symptoms are aggravated by nothing. Severity of symptoms: At their worst the symptoms were moderate, in the emergency department the symptoms are unchanged. The patient has not experienced similar symptoms in the past. The patient has not recently seen a physician. Historical: - Allergies: 09:43 Cephalexin Monohydrate; iw 09:43 cyclobenzaprine HCl (Vomiting); iw 09:43 Keflex (Vomiting); iw - Home Meds: 09:43 baclofen 10 mg Oral tab 1 tab every 6 hrs PRN for pain [Active]; clonazepam 1 mg Oral iw tab at bedtime [Active]; 09:40 methadone 10 mg Oral tab 4 times a day PRN for pain [Active]; rb1 - PMHx: 09:43 Anxiety; CHF; chronic back pain; COPD; Depression; iw - PSHx: 09:43 multiple back surgeries; iw 09:40 abdomen; rb1 - Immunization history:: Adult Immunizations not up to date. - Social history:: Smoking status: Patient uses tobacco products, smokes one-half pack cigarettes per day. - Ebola Screening: : Patient negative for fever greater than or equal to 101.5 degrees Fahrenheit, and additional compatible Ebola Virus Disease symptoms Patient denies exposure to infectious person Patient denies travel to an Ebola-affected area in the 21 days before illness onset No symptoms or risks identified at this time. ROS: 10:14 Constitutional: Negative for fever, chills, and weight loss, Neck: Negative for injury, kb pain, and swelling, Cardiovascular: Negative for chest pain, palpitations, and edema, Respiratory: Negative for shortness of breath, cough, wheezing, and pleuritic chest pain, Abdomen/GI: Negative for abdominal pain, nausea, vomiting, diarrhea, and constipation, Back: Negative for injury and pain, : Negative for injury, bleeding, discharge, and swelling, Neuro: Negative for headache, weakness, numbness, tingling, and seizure. 10:14 Skin: Positive for cellulitis, erythema, swelling, of the dorsum of left foot. Exam: 10:14 Constitutional: This is a well developed, well nourished patient who is awake, alert, kb and in no acute distress. Head/Face: Normocephalic, atraumatic. Chest/axilla: Normal chest wall appearance and motion. Nontender with no deformity. No lesions are appreciated. Cardiovascular: Regular rate and rhythm with a normal S1 and S2. No gallops, murmurs, or rubs. Normal PMI, no JVD. No pulse deficits. Respiratory: Lungs have equal breath sounds bilaterally, clear to auscultation and percussion. No rales, rhonchi or wheezes noted. No increased work of breathing, no retractions or nasal flaring. Abdomen/GI: Soft, non-tender, with normal bowel sounds. No distension or tympany. No guarding or rebound. No evidence of tenderness throughout. Neuro: Awake and alert, GCS 15, oriented to person, place, time, and situation. Cranial nerves II-XII grossly intact. Motor strength 5/5 in all extremities. Sensory grossly intact. Cerebellar exam normal. Normal gait. 10:14 Musculoskeletal/extremity: Extremities: grossly normal except: noted in the left ritter and anterior aspect of left ankle: pain. 10:14 Skin: cellulitis, that is moderate, on the dorsum of left foot. Vital Signs: 09:43 BP 102 / 73; Pulse 94; Resp 16; Temp 98.3; Pulse Ox 95% on R/A; Weight 47.63 kg; Pain iw 8/10; 10:43 BP 93 / 62; Pulse 65; Resp 16; Pulse Ox 98% on R/A; dh3 11:30 BP 88 / 66; Pulse 60; Resp 17; Pulse Ox 90% on R/A; rb1 11:44 BP 84 / 62; Pulse 73; Resp 19; Pulse Ox 96% on R/A; rb1 11:44 rb1 12:44 BP 110 / 62; Pulse 71; Resp 18; Pulse Ox 98% on R/A; rb1 13:09 BP 102 / 74; Pulse 78; Resp 18; Temp 98.2; Pulse Ox 96% on R/A; Pain 5/10; ch 11:44 provider notified; received order for NS 1000 ml bolus x 1. rb1 MDM: 09:31 Patient medically screened. kb 10:14 Data reviewed: vital signs, nurses notes. Data interpreted: Pulse oximetry: on room air kb is 95 %. Interpretation: normal. 11:35 Counseling: I had a detailed discussion with the patient and/or guardian regarding: the kb historical points, exam findings, and any diagnostic results supporting the discharge/admit diagnosis, lab results, radiology results, the need for outpatient follow up, a family practitioner, to return to the emergency department if symptoms worsen or persist or if there are any questions or concerns that arise at home. 02/15 09:44 Order name: CBC with Diff; Complete Time: 10:55 kb 02/15 09:44 Order name: Basic Metabolic Panel; Complete Time: 11:35 kb 12 09:44 Order name: Blood Culture Adult (2) kb 02/15 09:44 Order name: US Extremity Venous Unilateral Ltd; Complete Time: 10:28 kb 12 10:51 Order name: Labs - recollect needed; Complete Time: 11:04 eb Administered Medications: 10:25 Drug: [place] 5 mg-325 mg 1 tabs Route: PO; rb1 11:00 Follow up: Response: No adverse reaction; Pain is decreased rb1 11:30 Drug: Clindamycin 600 mg Route: IVPB; Infused Over: 30 mins; Site: right forearm; rb1 11:56 Follow up: Response: No adverse reaction; IV Status: Completed infusion rb1 11:57 Drug: NS 0.9% 1000 ml Route: IV; Rate: 1000 ml; Site: right forearm; rb1 13:10 Follow up: IV Status: Completed infusion; IV Intake: 1000ml ch Disposition: 17:59 Co-signature as Attending Physician, Hal Andre MD. rn Disposition: 02/15/18 11:41 Discharged to Home. Impression: Cellulitis of left lower limb - left foot. - Condition is Stable. - Discharge Instructions: Cellulitis, Adult, Vmpw-[id number]. - Prescriptions for Clindamycin HCl 300 mg Oral Capsule - take 1 capsule by ORAL route every 6 hours for 10 days; 40 capsule. - Medication Reconciliation Form, Thank You Letter, Antibiotic Education, Prescription Opioid Use form. - Follow up: Emergency Department; When: As needed; Reason: Worsening of condition. Follow up: Private Physician; When: 2 - 3 days; Reason: Recheck today's complaints, Continuance of care, Re-evaluation by your physician. Signatures: Dispatcher [employer] EDMS Ana Perry, TEST DRIVER-C TEST DRIVER-Ckb Shahida Lopes, RN RN ch Ratna Lynn RN RN Hal Andre MD MD rn Barber, Rebecca, RN RN Serene Elias Corrections: (The following items were deleted from the chart) 13:11 11:41 02/15/2018 11:41 Discharged to Home. Impression: Cellulitis of left lower limb - ch left foot. Condition is Stable. Discharge Instructions: Cellulitis, Adult, Qrxc-sn-Rpsy. Prescriptions for Clindamycin HCl 300 mg Oral Capsule - take 1 capsule by ORAL route every 6 hours for 10 days; 40 capsule. and Forms are Medication Reconciliation Form, Thank You Letter, Antibiotic Education, Prescription Opioid Use. Follow up: Emergency Department; When: As needed; Reason: Worsening of condition. Follow up: Private Physician; When: 2 - 3 days; Reason: Recheck today's complaints, Continuance of care, Re-evaluation by your physician. kb
[2018-02-15] MEDS ORDERED: NA CHLORIDE 0.9% 1,000 ML ONE (12:01)
[2018-02-15 14:57] VITALS: BP 102/74; TEMP 98.2; O2SAT 96
== END 2018-02-15 13:11 | disposition home or self-care (01) ==
LOC: ER 09:24
DX: L03.116 Cellulitis of left lower limb (principal); F17.210 Nicotine dependence, cigarettes, uncomplicated; I50.9 Heart failure, unspecified; J44.9 Chronic obstructive pulmonary disease, unspecified; F32.9 Major depressive disorder, single episode, unspecified; Z88.1 Allergy status to other antibiotic agents; Z88.8 Allergy status to other drugs, medicaments and biological substances
CPT/HCPCS: 36415; 80048; 85025; 87040 ×2; 93971; 96361; 96365; 99284; J7030

== ENCOUNTER 2018-05-01 10:20 | Emergency (ER) | payer OTHER ==
--- OUTSIDE RECORDS SUMMARY | 2018-05-01 10:25 | XMS REPORT | Clinical Summary ---
:1955 Author Organization [facility] Address [address] [place] [address] Care Team Providers Name Role Phone Manuel Foley MD Primary Care Provider Unavailable Blair Adams Unavailable Allergies Active Allergy Reactions Severity Noted Date Comments Cephalexin Other (See Comments) 07/28/2008 Cyclobenzaprine Hcl Other (See Comments) 07/28/2008 Loss of feeling in extremities Medications Medication Sig Dispensed Refills Start Date End Date Status magnesium oxide Take 1 tablet (400 60 tablet 0 02/13/2017 02/13/2018 (MAG-OX) 400 mg mg total) by mouth tablet 2 (two) times daily. blood-glucose meter Use as instructed. 1 each 0 02/13/2017 02/13/2018 kit metFORMIN Take 1 tablet (500 60 tablet 0 02/14/2017 02/14/2018 (GLUCOPHAGE) 500 MG mg total) by mouth tablet 2 (two) times daily with breakfast and dinner. Active Problems Problem Noted Date Acute hypercapnic respiratory failure 02/04/2017 Acute exacerbation of chronic obstructive pulmonary disease (COPD) 02/04/2017 Acute diastolic CHF (congestive heart failure), NYHA class 4 02/04/2017 Pleural effusion, right 02/04/2017 Community acquired pneumonia of right lower lobe of lung 02/04/2017 Severe protein-calorie malnutrition (Moe: less than 60% of standard 2016 weight) Social History Tobacco Use Types Packs/Day Years Used Date Never Assessed Sex Assigned at Date Recorded Not on file Job Start Date Occupation Industry Not on file Not on file Not on file Travel History Travel Start Travel End No recent travel history available. Last Filed Vital Signs Not on file Plan of Treatment Not on file Results Not on fileafter 04/30/2017 Insurance Payer Benefit Plan / Group Subscriber ID Type Phone Address MEDICARE MEDICARE A B xxxxxxxxxx Medicare MEDICAID MEDICAID [facility] xxxxxxxxx Medicaid Advance Directives For more information, please contact:[id number] [place], [place] [phone] Code Status Date Activated Date Inactivated Comments Full Code 02/04/2017 6:02 PM 02/18/2017 1:43 AM This code status was determined by: Patient
--- OUTSIDE RECORDS SUMMARY | 2018-05-01 10:28 | XMS REPORT ---
[...] End Status Dosage System Date Date Clonazepam [facility] 09554750279 1 MG Orally Active 1 tablet Once a day Creon [facility] 47657094469 72329-89005 Active not defined UNIT Orally Triamcinolone [place] 49078190119 0.5 % August Active 1 application Acetonide Externally 11, to affected Twice a day 2017 area Metoprolol ND 93476710779 25 MG Orally Active 1 tablet with Tartrate Twice a day food Albuterol-Ipratro ND 0 2.5-0.5 MG/3ML Active 3 ml pium Inhalation every 6 hrs ProAir RespiClick [facility] 21733619867 108 (90 Base) Active 2 puffs as MCG/ACT needed Inhalation every 6 hrs Brovana [facility] 84919579112 15 MCG/2ML Active 2 ml Inhalation Twice a day Protonix [facility] 24593610272 40 MG Active 1 EACH ONCE A DAY ORALLY Metformin HCl [facility] 85207025498 500 MG Orally Active 1 tablet with Twice a day meals Magnesium Oxide [facility] 69818753424 400 MG Orally Active 1 tablet as Once a day needed Pantoprazole [facility] 00175748955 40 MG Orally May Active 1 tablet Sodium Once a day 2017 Methadone HCl [facility] 66036874664 10 MG Orally Active 1 tablet Once a day Lasix [facility] 13895593289 20 MG Orally Active 1 tablet Once a day Medrol [facility] 77318669724 4 MG Orally August Active as directed 2017 Prolia [facility] 22540983262 60 MG/ML Active not defined Subcutaneous MiraLax [facility] 56884250672 - Orally Once Active 1 packet a day mixed with 8 ounces of fluid Ergocalciferol [facility] 30372917182 28549 UNIT Active 1 capsule Orally Results No Known Results Summary Purpose eClinicalWorks Submission
--- OUTSIDE RECORDS SUMMARY | 2018-05-01 10:28 | XMS REPORT ---
[...] Dosage System Date Date Methadone HCl ND 91528376033 10 MG Orally Active 1 tablet Once a day Protonix [facility] 08005032346 40 MG Active 1 EACH ONCE A DAY ORALLY Brovana ND 62749120642 15 MCG/2ML Active 2 ml Inhalation Twice a day ProAir RespiClick [facility] 02550864600 108 (90 Base) Active 2 puffs as MCG/ACT needed Inhalation every 6 hrs Metoprolol ND 21322115213 25 MG Orally Active 1 tablet Tartrate Twice a day with food Pantoprazole ND 62164229888 40 MG Orally March Active 1 tablet Sodium Once a day 2017 Albuterol-Ipratro ND 0 2.5-0.5 MG/3ML Active 3 ml pium Inhalation every 6 hrs Magnesium Oxide ND 11092997777 400 MG Orally Active 1 tablet Once a day as needed Prolia [facility] 79448937671 60 MG/ML Active not Subcutaneous defined MiraLax [facility] 58523813947 - Orally Once a Active 1 packet day mixed with 8 ounces of fluid Ergocalciferol [facility] 09732778090 90559 UNIT Active 1 capsule Orally Metformin HCl [facility] 05522911133 500 MG Orally Active 1 tablet Twice a day with meals Clonazepam [facility] 59988048302 1 MG Orally Active 1 tablet Once a day Creon [facility] 42123446305 55389-89089 Active not UNIT Orally defined Lasix [facility] 18143878440 20 MG Orally Active 1 tablet Once a day Results No Known Results Summary Purpose eClinicalWorks Submission
--- OUTSIDE RECORDS SUMMARY | 2018-05-01 10:28 | XMS REPORT ---
:1955 [facility] Wiliam Gotti [address] [place] [id number] Care Team Providers Name Role Phone LYNN [...] (BEAKER) (test 175 mg/dL 70-[address] [facility] [address] [place] [address] mirq=[id number]) [facility] [address] POCT-GLUCOSE [id number] 08:27:00 Test Item Value Reference Range Comments POC-GLUCOSE METER (BEAKER) 83 mg/dL 70-110 TESTED AT [address] (test dmar=1317) [facility] [address] CBC W/PLT COUNT & AUTO [id number] 07:16:00 Test Item Value Reference Range Comments WHITE BLOOD CELL COUNT (BEAKER) (test dgki=670) 17.1 K/ L 3.5-10.5 RED BLOOD CELL COUNT (BEAKER) (test igae=074) 3.96 M/ L 3.93-5.22 HEMOGLOBIN (BEAKER) (test anwr=924) 10.7 GM/DL 11.2-15.7 HEMATOCRIT (BEAKER) (test buqx=652) 34.8 % 34.1-44.9 MEAN CORPUSCULAR VOLUME (BEAKER) (test pyuf=298) 87.9 fL 79.4-94.8 MEAN CORPUSCULAR HEMOGLOBIN (BEAKER) (test 27.0 pg 25.6-32.2 dskf=585) MEAN CORPUSCULAR HEMOGLOBIN CONC (BEAKER) (test 30.7 GM/DL 32.2-35.5 byzz=209) RED CELL DISTRIBUTION WIDTH (BEAKER) (test 15.6 % 11.7-14.4 iezx=834) PLATELET COUNT (BEAKER) (test teky=806) 334 K/CU MM 150-450 MEAN PLATELET VOLUME (BEAKER) (test thlu=077) 11.1 fL 9.4-12.3 NUCLEATED RED BLOOD CELLS (BEAKER) (test 0 /100 WBC 0-0 hnvd=495) NEUTROPHILS RELATIVE PERCENT (BEAKER) (test 84 % xgnu=931) LYMPHOCYTES RELATIVE PERCENT (BEAKER) (test 8 % coil=971) MONOCYTES RELATIVE PERCENT (BEAKER) (test 7 % dvsu=532) EOSINOPHILS RELATIVE PERCENT (BEAKER) (test 0 % jeiw=839) BASOPHILS RELATIVE PERCENT (BEAKER) (test 0 % span=316) NEUTROPHILS ABSOLUTE COUNT (BEAKER) (test 14.26 K/ L 1.56-6.13 akec=411) LYMPHOCYTES ABSOLUTE COUNT (BEAKER) (test 1.43 K/ L 1.18-3.74 zhxe=114) MONOCYTES ABSOLUTE COUNT (BEAKER) (test 1.10 K/ L 0.24-0.36 bain=722) EOSINOPHILS ABSOLUTE COUNT (BEAKER) (test 0.05 K/ L 0.04-0.36 oduo=805) BASOPHILS ABSOLUTE COUNT (BEAKER) (test 0.01 K/ L 0.01-0.08 iwvx=937) IMMATURE GRANULOCYTES-RELATIVE PERCENT (BEAKER) 1 % 0-1 (test ypjg=9497) [id number] 07:00:00 Test Item Value Reference Range Comments MAGNESIUM (BEAKER) (test bvup=940) 2.2 mg/dL 1.6-2.6 BASIC METABOLIC [id number] 07:00:00 Test Item Value Reference Range Comments SODIUM (BEAKER) (test 133 meq/L 136-145 esnn=347) POTASSIUM (BEAKER) (test 4.3 meq/L 3.5-5.1 adus=355) CHLORIDE (BEAKER) (test 91 meq/L 98-107 qouv=650) CO2 (BEAKER) (test 34 meq/L 22-29 xolm=064) BLOOD UREA NITROGEN 19 mg/dL 7-21 (BEAKER) (test praf=487) CREATININE (BEAKER) (test 0.61 mg/dL 0.57-1.25 qzrl=750) GLUCOSE RANDOM (BEAKER) 61 mg/dL 70-105 (test hlqt=002) CALCIUM (BEAKER) (test 8.9 mg/dL 8.4-10.2 imqv=118) EGFR (BEAKER) (test 100 mL/min/1.73 sq m ESTIMATED GFR IS NOT xwcn=8299) ACCURATE CREATININE CLEARANCE IN PREDICTING GLOMERULAR FILTRATION RATE. ESTIMATED GFR IS NOT APPLICABLE FOR DIALYSIS PATIENTS. POCT-GLUCOSE [id number] 20:42:00 Test Item Value Reference Range Comments POC-GLUCOSE METER (BEAKER) 183 mg/dL 70-110 TESTED AT [address] (test hxuk=1158) [facility] [address] POCT-GLUCOSE [id number] 11:38:00 Test Item Value Reference Range Comments POC-GLUCOSE METER (BEAKER) 130 mg/dL 70-110 TESTED AT [address] (test qsho=7801) [place] [id number] POCT-GLUCOSE [id number] 08:08:00 Test Item Value Reference Range Comments POC-GLUCOSE METER (BEAKER) 67 mg/dL 70-110 Will Repeat Test/TESTED AT (test boac=1754) [address] [address] [id number] 06:51:00 Test Item Value Reference Range Comments MAGNESIUM (BEAKER) (test mdmu=255) 2.0 mg/dL 1.6-2.6 BASIC METABOLIC [id number] 06:51:00 Test Item Value Reference Range Comments SODIUM (BEAKER) (test 134 meq/L 136-145 cwob=088) POTASSIUM (BEAKER) (test 4.4 meq/L 3.5-5.1 ancl=090) CHLORIDE (BEAKER) (test 92 meq/L 98-107 rcnx=022) CO2 (BEAKER) (test 34 meq/L 22-29 twqo=333) BLOOD UREA NITROGEN 17 mg/dL 7-21 (BEAKER) (test bkzr=742) CREATININE (BEAKER) (test 0.56 mg/dL 0.57-1.25 hads=497) GLUCOSE RANDOM (BEAKER) 66 mg/dL 70-105 (test xpwg=211) CALCIUM (BEAKER) (test 8.8 mg/dL 8.4-10.2 ezgv=187) EGFR (BEAKER) (test 110 mL/min/1.73 sq m ESTIMATED GFR IS NOT hdff=2059) ACCURATE CREATININE CLEARANCE IN PREDICTING GLOMERULAR FILTRATION RATE. ESTIMATED GFR IS NOT APPLICABLE FOR DIALYSIS PATIENTS. CBC W/PLT COUNT & AUTO [id number] 06:00:00 Test Item Value Reference Range Comments WHITE BLOOD CELL COUNT (BEAKER) (test igke=275) 17.0 K/ L 3.5-10.5 RED BLOOD CELL COUNT (BEAKER) (test szzm=840) 4.16 M/ L 3.93-5.22 HEMOGLOBIN (BEAKER) (test nldg=644) 11.1 GM/DL 11.2-15.7 HEMATOCRIT (BEAKER) (test lhdz=508) 36.3 % 34.1-44.9 MEAN CORPUSCULAR VOLUME (BEAKER) (test rcrw=291) 87.3 fL 79.4-94.8 MEAN CORPUSCULAR HEMOGLOBIN (BEAKER) (test 26.7 pg 25.6-32.2 vxio=858) MEAN CORPUSCULAR HEMOGLOBIN CONC (BEAKER) (test 30.6 GM/DL 32.2-35.5 yfhc=104) RED CELL DISTRIBUTION WIDTH (BEAKER) (test 15.6 % 11.7-14.4 qeav=609) PLATELET COUNT (BEAKER) (test cueg=056) 293 K/CU MM 150-450 MEAN PLATELET VOLUME (BEAKER) (test xxdl=654) 11.7 fL 9.4-12.3 NUCLEATED RED BLOOD CELLS (BEAKER) (test 0 /100 WBC 0-0 ptbo=770) NEUTROPHILS RELATIVE PERCENT (BEAKER) (test 81 % fiqa=777) LYMPHOCYTES RELATIVE PERCENT (BEAKER) (test 9 % bwpi=603) MONOCYTES RELATIVE PERCENT (BEAKER) (test 8 % kcmt=307) EOSINOPHILS RELATIVE PERCENT (BEAKER) (test 1 % hwec=511) BASOPHILS RELATIVE PERCENT (BEAKER) (test 0 % pyap=239) NEUTROPHILS ABSOLUTE COUNT (BEAKER) (test 13.77 K/ L 1.56-6.13 cvwu=333) LYMPHOCYTES ABSOLUTE COUNT (BEAKER) (test 1.51 K/ L 1.18-3.74 afjl=947) MONOCYTES ABSOLUTE COUNT (BEAKER) (test 1.35 K/ L 0.24-0.36 hcns=308) EOSINOPHILS ABSOLUTE COUNT (BEAKER) (test 0.08 K/ L 0.04-0.36 sfgk=809) BASOPHILS ABSOLUTE COUNT (BEAKER) (test 0.04 K/ L 0.01-0.08 dcjt=806) IMMATURE GRANULOCYTES-RELATIVE PERCENT (BEAKER) 1 % 0-1 (test arvo=1053) POCT-GLUCOSE [id number] 21:21:00 Test Item Value Reference Range Comments POC-GLUCOSE METER (BEAKER) 177 mg/dL 70-110 TESTED AT [address] (test zcen=1438) [facility] [address] POCT-GLUCOSE [id number] 17:52:00 Test Item Value Reference Range Comments POC-GLUCOSE METER (BEAKER) 191 mg/dL 70-110 TESTED AT [address] (test asxm=1823) [facility] [address] POCT-GLUCOSE [id number] 11:46:00 Test Item Value Reference Range Comments POC-GLUCOSE METER (BEAKER) 145 mg/dL 70-110 TESTED AT [address] (test hhvd=7215) [facility] [address] POCT-GLUCOSE [id number] 07:59:00 Test Item Value Reference Range Comments POC-GLUCOSE METER (BEAKER) 89 mg/dL 70-110 TESTED AT [address] (test ttwi=1156) [facility] [address] [id number] 04:29:00 Test Item Value Reference Range Comments MAGNESIUM (BEAKER) (test izmi=023) 2.1 mg/dL 1.6-2.6 BASIC METABOLIC [id number] 04:29:00 Test Item Value Reference Range Comments SODIUM (BEAKER) (test 134 meq/L 136-145 fypa=320) POTASSIUM (BEAKER) (test 4.7 meq/L 3.5-5.1 onbh=556) CHLORIDE (BEAKER) (test 91 meq/L 98-107 mnny=328) CO2 (BEAKER) (test 36 meq/L 22-29 toox=062) BLOOD UREA NITROGEN 14 mg/dL 7-21 (BEAKER) (test gznu=775) CREATININE (BEAKER) (test 0.56 mg/dL 0.57-1.25 noba=221) GLUCOSE RANDOM (BEAKER) 138 mg/dL 70-105 (test jsbc=447) CALCIUM (BEAKER) (test 8.3 mg/dL 8.4-10.2 kipe=107) EGFR (BEAKER) (test 110 mL/min/1.73 sq m ESTIMATED GFR IS NOT evku=4377) ACCURATE CREATININE CLEARANCE IN PREDICTING GLOMERULAR FILTRATION RATE. ESTIMATED GFR IS NOT APPLICABLE FOR DIALYSIS PATIENTS. CBC W/PLT COUNT & AUTO [id number] 04:18:00 Test Item Value Reference Range Comments WHITE BLOOD CELL COUNT (BEAKER) (test ulhv=169) 14.1 K/ L 3.5-10.5 RED BLOOD CELL COUNT (BEAKER) (test azju=668) 4.06 M/ L 3.93-5.22 HEMOGLOBIN (BEAKER) (test stmd=758) 11.1 GM/DL 11.2-15.7 HEMATOCRIT (BEAKER) (test hgyh=059) 35.9 % 34.1-44.9 MEAN CORPUSCULAR VOLUME (BEAKER) (test zobd=133) 88.4 fL 79.4-94.8 MEAN CORPUSCULAR HEMOGLOBIN (BEAKER) (test 27.3 pg 25.6-32.2 aczv=766) MEAN CORPUSCULAR HEMOGLOBIN CONC (BEAKER) (test 30.9 GM/DL 32.2-35.5 bagv=215) RED CELL DISTRIBUTION WIDTH (BEAKER) (test 15.5 % 11.7-14.4 esoo=511) PLATELET COUNT (BEAKER) (test lvll=015) 309 K/CU MM 150-450 MEAN PLATELET VOLUME (BEAKER) (test wewm=776) 10.7 fL 9.4-12.3 NUCLEATED RED BLOOD CELLS (BEAKER) (test 0 /100 WBC 0-0 yird=059) NEUTROPHILS RELATIVE PERCENT (BEAKER) (test 89 % oqqw=536) LYMPHOCYTES RELATIVE PERCENT (BEAKER) (test 5 % kcrb=032) MONOCYTES RELATIVE PERCENT (BEAKER) (test 5 % qoxa=161) EOSINOPHILS RELATIVE PERCENT (BEAKER) (test 0 % oxmn=737) BASOPHILS RELATIVE PERCENT (BEAKER) (test 0 % dsvp=887) NEUTROPHILS ABSOLUTE COUNT (BEAKER) (test 12.50 K/ L 1.56-6.13 vkhz=997) LYMPHOCYTES ABSOLUTE COUNT (BEAKER) (test 0.68 K/ L 1.18-3.74 zyhv=161) MONOCYTES ABSOLUTE COUNT (BEAKER) (test 0.74 K/ L 0.24-0.36 civa=619) EOSINOPHILS ABSOLUTE COUNT (BEAKER) (test 0.00 K/ L 0.04-0.36 oihi=778) BASOPHILS ABSOLUTE COUNT (BEAKER) (test 0.01 K/ L 0.01-0.08 qhkq=531) IMMATURE GRANULOCYTES-RELATIVE PERCENT (BEAKER) 1 % 0-1 (test rdov=0327) POCT-GLUCOSE [id number] 21:24:00 Test Item Value Reference Range Comments POC-GLUCOSE METER (BEAKER) 257 mg/dL 70-110 TESTED AT [address] (test beoo=9148) [place] [address] POCT-GLUCOSE [id number] 17:18:00 Test Item Value Reference Range Comments POC-GLUCOSE METER (BEAKER) 171 mg/dL 70-110 TESTED AT [address] (test batz=2932) [place] [address] POCT-GLUCOSE [id number] 12:43:00 Test Item Value Reference Range Comments POC-GLUCOSE METER (BEAKER) 178 mg/dL 70-110 TESTED AT [address] (test ifiv=2858) [place] [id number] CBC W/PLT COUNT & AUTO [id number] 09:33:00 Test Item Value Reference Range Comments WHITE BLOOD CELL COUNT (BEAKER) (test acko=394) 15.2 K/ L 3.5-10.5 RED BLOOD CELL COUNT (BEAKER) (test rqjx=222) 4.36 M/ L 3.93-5.22 HEMOGLOBIN (BEAKER) (test zmoe=932) 11.8 GM/DL 11.2-15.7 HEMATOCRIT (BEAKER) (test rlaz=846) 37.6 % 34.1-44.9 MEAN CORPUSCULAR VOLUME (BEAKER) (test ecnw=249) 86.2 fL 79.4-94.8 MEAN CORPUSCULAR HEMOGLOBIN (BEAKER) (test 27.1 pg 25.6-32.2 hwtw=578) MEAN CORPUSCULAR HEMOGLOBIN CONC (BEAKER) (test 31.4 GM/DL 32.2-35.5 uhlv=358) RED CELL DISTRIBUTION WIDTH (BEAKER) (test 15.6 % 11.7-14.4 kqpp=888) PLATELET COUNT (BEAKER) (test zyxx=208) 289 K/CU MM 150-450 MEAN PLATELET VOLUME (BEAKER) (test kohs=023) 12.1 fL 9.4-12.3 NUCLEATED RED BLOOD CELLS (BEAKER) (test 0 /100 WBC 0-0 bibg=829) NEUTROPHILS RELATIVE PERCENT (BEAKER) (test 78 % tewe=021) LYMPHOCYTES RELATIVE PERCENT (BEAKER) (test 10 % iinh=133) MONOCYTES RELATIVE PERCENT (BEAKER) (test 10 % gzhy=454) EOSINOPHILS RELATIVE PERCENT (BEAKER) (test 1 % nbzm=588) BASOPHILS RELATIVE PERCENT (BEAKER) (test 0 % uoel=721) NEUTROPHILS ABSOLUTE COUNT (BEAKER) (test 11.75 K/ L 1.56-6.13 lknx=066) LYMPHOCYTES ABSOLUTE COUNT (BEAKER) (test 1.54 K/ L 1.18-3.74 pgos=593) MONOCYTES ABSOLUTE COUNT (BEAKER) (test 1.56 K/ L 0.24-0.36 triq=777) EOSINOPHILS ABSOLUTE COUNT (BEAKER) (test 0.08 K/ L 0.04-0.36 ldut=293) BASOPHILS ABSOLUTE COUNT (BEAKER) (test 0.03 K/ L 0.01-0.08 uvuv=792) IMMATURE GRANULOCYTES-RELATIVE PERCENT (BEAKER) 1 % 0-1 (test cstc=9885) POCT-GLUCOSE [id number] 07:00:00 Test Item Value Reference Range Comments POC-GLUCOSE METER (BEAKER) 101 mg/dL 70-[address] [facility] [address] [facility] (test dgda=8851) [facility] [address] [id number] 05:09:00 Test Item Value Reference Range Comments MAGNESIUM (BEAKER) (test 2.3 mg/dL 1.6-2.6 Specimen slightly hemolyzed dgyi=359) BASIC METABOLIC [id number] 05:09:00 Test Item Value Reference Range Comments SODIUM (BEAKER) (test 134 meq/L 136-145 ngsx=327) POTASSIUM (BEAKER) (test 5.1 meq/L 3.5-5.1 Specimen slightly hhzx=661) hemolyzed CHLORIDE (BEAKER) (test 96 meq/L 98-107 xkfn=112) CO2 (BEAKER) (test 33 meq/L 22-29 jutg=130) BLOOD UREA NITROGEN 13 mg/dL 7-21 (BEAKER) (test wbpe=463) CREATININE (BEAKER) (test 0.48 mg/dL 0.57-1.25 Specimen slightly aduv=393) hemolyzed GLUCOSE RANDOM (BEAKER) 73 mg/dL 70-105 (test rucw=894) CALCIUM (BEAKER) (test 8.3 mg/dL 8.4-10.2 lyxm=955) EGFR (BEAKER) (test 131 mL/min/1.73 sq m ESTIMATED GFR IS NOT yedu=2463) ACCURATE CREATININE CLEARANCE IN PREDICTING GLOMERULAR FILTRATION RATE. ESTIMATED GFR IS NOT APPLICABLE FOR DIALYSIS PATIENTS. POCT-GLUCOSE [id number] 21:25:00 Test Item Value Reference Range Comments POC-GLUCOSE METER (BEAKER) 334 mg/dL 70-110 Will Repeat Test/TESTED AT (test uypp=2663) [address] [address] BLOOD GAS, [id number] 12:45:00 Test Item Value Reference Range Comments PH ARTERIAL (BEAKER) (test xlfm=812) 7.47 7.35-7.45 PCO2 ARTERIAL (BEAKER) (test gruy=114) 60 mmHg 35-45 PO2 ARTERIAL (BEAKER) (test rgdr=942) 79 mmHg 80-90 O2 SATURATION ARTERIAL (BEAKER) (test fxcl=620) 96.2 % 96.0-97.0 HCO3 ARTERIAL (BEAKER) (test cmzg=712) 42 mmol/L 21-29 BASE EXCESS ARTERIAL (BEAKER) (test mhnc=581) 15.6 mmol/L -2.0-3.0 PATIENT TEMPERATURE (BEAKER) (test rcom=2929) 36.7 C FIO2 (BEAKER) (test dxre=9414) 32.0 % POCT-GLUCOSE [id number] 11:48:00 Test Item Value Reference Range Comments POC-GLUCOSE METER (BEAKER) 140 mg/dL 70-110 TESTED AT [address] (test ytoq=6844) [facility] [address] BASIC METABOLIC [id number] 09:02:00 Test Item Value Reference Range Comments SODIUM (BEAKER) (test 135 meq/L 136-145 jeew=481) POTASSIUM (BEAKER) (test 3.4 meq/L 3.5-5.1 vgfi=044) CHLORIDE (BEAKER) (test 89 meq/L 98-107 zjzm=669) CO2 (BEAKER) (test 43 meq/L 22-29 ptfr=008) BLOOD UREA NITROGEN 15 mg/dL 7-21 (BEAKER) (test ghcw=251) CREATININE (BEAKER) (test 0.48 mg/dL 0.57-1.25 yacq=034) GLUCOSE RANDOM (BEAKER) 77 mg/dL 70-105 (test moax=144) CALCIUM (BEAKER) (test 8.1 mg/dL 8.4-10.2 qpoo=486) EGFR (BEAKER) (test 131 mL/min/1.73 sq m ESTIMATED GFR IS NOT ipms=4982) ACCURATE CREATININE CLEARANCE IN PREDICTING GLOMERULAR FILTRATION RATE. ESTIMATED GFR IS NOT APPLICABLE FOR DIALYSIS PATIENTS. POCT-GLUCOSE [id number] 06:50:00 Test Item Value Reference Range Comments POC-GLUCOSE METER (BEAKER) 92 mg/dL 70-[address] [facility] [address] [facility] (test mqfc=5594) [facility] [address] CBC W/PLT COUNT & AUTO [id number] 04:12:00 Test Item Value Reference Range Comments WHITE BLOOD CELL COUNT (BEAKER) (test pndy=720) 11.7 K/ L 3.5-10.5 RED BLOOD CELL COUNT (BEAKER) (test fgkc=539) 3.67 M/ L 3.93-5.22 HEMOGLOBIN (BEAKER) (test tatp=267) 9.9 GM/DL 11.2-15.7 HEMATOCRIT (BEAKER) (test ffyb=959) 32.5 % 34.1-44.9 MEAN CORPUSCULAR VOLUME (BEAKER) (test aarf=595) 88.6 fL 79.4-94.8 MEAN CORPUSCULAR HEMOGLOBIN (BEAKER) (test 27.0 pg 25.6-32.2 unxa=647) MEAN CORPUSCULAR HEMOGLOBIN CONC (BEAKER) (test 30.5 GM/DL 32.2-35.5 cgrs=548) RED CELL DISTRIBUTION WIDTH (BEAKER) (test 15.2 % 11.7-14.4 gizr=597) PLATELET COUNT (BEAKER) (test ubtv=614) 263 K/CU MM 150-450 MEAN PLATELET VOLUME (BEAKER) (test zizq=818) 10.4 fL 9.4-12.3 NUCLEATED RED BLOOD CELLS (BEAKER) (test 0 /100 WBC 0-0 fwhx=484) NEUTROPHILS RELATIVE PERCENT (BEAKER) (test 78 % kpla=376) LYMPHOCYTES RELATIVE PERCENT (BEAKER) (test 11 % tzot=485) MONOCYTES RELATIVE PERCENT (BEAKER) (test 10 % rlxk=330) EOSINOPHILS RELATIVE PERCENT (BEAKER) (test 0 % pskr=768) BASOPHILS RELATIVE PERCENT (BEAKER) (test 0 % xrtq=651) NEUTROPHILS ABSOLUTE COUNT (BEAKER) (test 9.19 K/ L 1.56-6.13 loit=820) LYMPHOCYTES ABSOLUTE COUNT (BEAKER) (test 1.26 K/ L 1.18-3.74 mvgf=546) MONOCYTES ABSOLUTE COUNT (BEAKER) (test 1.15 K/ L 0.24-0.36 gqvz=999) EOSINOPHILS ABSOLUTE COUNT (BEAKER) (test 0.02 K/ L 0.04-0.36 ezqu=455) BASOPHILS ABSOLUTE COUNT (BEAKER) (test 0.01 K/ L 0.01-0.08 vlxv=941) IMMATURE GRANULOCYTES-RELATIVE PERCENT (BEAKER) 1 % 0-1 (test mmww=1179) POCT-GLUCOSE [id number] 21:22:00 Test Item Value Reference Range Comments POC-GLUCOSE METER (BEAKER) 198 mg/dL 70-110 TESTED AT [address] (test yriw=9084) [place] [address] POCT-GLUCOSE [id number] 16:57:00 Test Item Value Reference Range Comments POC-GLUCOSE METER (BEAKER) 297 mg/dL 70-[address] [facility] [address] [facility] (test njeg=3967) [place] [id number] SPUTUM CULTURE + GRAM [id number] 13:17:00 Test Item Value Reference Range Comments CULTURE (BEAKER) (test 4+ Normal respiratory paul tlxb=8236) present GRAM STAIN RESULT (BEAKER) 2+ WBCs (test zepe=8794) GRAM STAIN RESULT (BEAKER) 0-5 epithelial cells (test tpvg=34251) GRAM STAIN RESULT (BEAKER) 4+ gram negative rods (test xqlu=96858) GRAM STAIN RESULT (BEAKER) 4+ gram positive cocci in (test wwjv=211008) clusters GRAM STAIN RESULT (BEAKER) 1+ yeast with pseudohyphae (test oesr=048164) CBC W/PLT COUNT & AUTO [id number] 12:07:00 Test Item Value Reference Range Comments WHITE BLOOD CELL COUNT (BEAKER) (test fmtl=656) 16.8 K/ L 3.5-10.5 RED BLOOD CELL COUNT (BEAKER) (test jrko=917) 4.39 M/ L 3.93-5.22 HEMOGLOBIN (BEAKER) (test tbhe=239) 12.0 GM/DL 11.2-15.7 HEMATOCRIT (BEAKER) (test mfvn=443) 39.3 % 34.1-44.9 MEAN CORPUSCULAR VOLUME (BEAKER) (test umqz=581) 89.5 fL 79.4-94.8 MEAN CORPUSCULAR HEMOGLOBIN (BEAKER) (test 27.3 pg 25.6-32.2 hcde=392) MEAN CORPUSCULAR HEMOGLOBIN CONC (BEAKER) (test 30.5 GM/DL 32.2-35.5 zytz=084) RED CELL DISTRIBUTION WIDTH (BEAKER) (test 15.3 % 11.7-14.4 gegm=608) PLATELET COUNT (BEAKER) (test eyro=193) 312 K/CU MM 150-450 MEAN PLATELET VOLUME (BEAKER) (test fxop=868) 10.9 fL 9.4-12.3 NUCLEATED RED BLOOD CELLS (BEAKER) (test 0 /100 WBC 0-0 qkeo=382) NEUTROPHILS RELATIVE PERCENT (BEAKER) (test 89 % safm=465) LYMPHOCYTES RELATIVE PERCENT (BEAKER) (test 3 % vbdl=790) MONOCYTES RELATIVE PERCENT (BEAKER) (test 7 % imre=107) EOSINOPHILS RELATIVE PERCENT (BEAKER) (test 0 % jyqp=313) BASOPHILS RELATIVE PERCENT (BEAKER) (test 0 % mdwv=364) NEUTROPHILS ABSOLUTE COUNT (BEAKER) (test 15.01 K/ L 1.56-6.13 jigr=258) LYMPHOCYTES ABSOLUTE COUNT (BEAKER) (test 0.56 K/ L 1.18-3.74 vdbl=095) MONOCYTES ABSOLUTE COUNT (BEAKER) (test 1.11 K/ L 0.24-0.36 lhhe=388) EOSINOPHILS ABSOLUTE COUNT (BEAKER) (test 0.00 K/ L 0.04-0.36 tvml=877) BASOPHILS ABSOLUTE COUNT (BEAKER) (test 0.02 K/ L 0.01-0.08 hqaf=660) IMMATURE GRANULOCYTES-RELATIVE PERCENT (BEAKER) 1 % 0-1 (test hjce=0751) POCT-GLUCOSE [id number] 11:54:00 Test Item Value Reference Range Comments POC-GLUCOSE METER (BEAKER) 179 mg/dL 70-110 TESTED AT [address] (test atak=7078) [place] [address] BASIC METABOLIC [id number] 04:52:00 Test Item Value Reference Range Comments SODIUM (BEAKER) (test 137 meq/L 136-145 hrgx=164) POTASSIUM (BEAKER) (test 3.8 meq/L 3.5-5.1 zfmq=956) CHLORIDE (BEAKER) (test 93 meq/L 98-107 mdui=629) CO2 (BEAKER) (test 36 meq/L 22-29 tmhd=532) BLOOD UREA NITROGEN 17 mg/dL 7-21 (BEAKER) (test xnqj=512) CREATININE (BEAKER) (test 0.54 mg/dL 0.57-1.25 gdpp=935) GLUCOSE RANDOM (BEAKER) 103 mg/dL 70-105 (test ukez=825) CALCIUM (BEAKER) (test 8.5 mg/dL 8.4-10.2 nzwf=886) EGFR (BEAKER) (test 115 mL/min/1.73 sq m ESTIMATED GFR IS NOT sbxu=3102) ACCURATE CREATININE CLEARANCE IN PREDICTING GLOMERULAR FILTRATION RATE. ESTIMATED GFR IS NOT APPLICABLE FOR DIALYSIS PATIENTS. POCT-GLUCOSE [id number] 21:10:00 Test Item Value Reference Range Comments POC-GLUCOSE METER (BEAKER) 289 mg/dL 70-110 TESTED AT [address] (test uuhi=1571) [place] [address] CBC W/PLT COUNT & AUTO [id number] 15:29:00 Test Item Value Reference Range Comments WHITE BLOOD CELL COUNT (BEAKER) (test ecph=557) 20.2 K/ L 3.5-10.5 RED BLOOD CELL COUNT (BEAKER) (test gyua=436) 4.70 M/ L 3.93-5.22 HEMOGLOBIN (BEAKER) (test zwal=877) 12.6 GM/DL 11.2-15.7 HEMATOCRIT (BEAKER) (test qvqz=299) 43.3 % 34.1-44.9 MEAN CORPUSCULAR VOLUME (BEAKER) (test dabm=700) 92.1 fL 79.4-94.8 MEAN CORPUSCULAR HEMOGLOBIN (BEAKER) (test 26.8 pg 25.6-32.2 unaq=459) MEAN CORPUSCULAR HEMOGLOBIN CONC (BEAKER) (test 29.1 GM/DL 32.2-35.5 jrhs=440) RED CELL DISTRIBUTION WIDTH (BEAKER) (test 15.2 % 11.7-14.4 uwuz=105) PLATELET COUNT (BEAKER) (test vwmn=414) 301 K/CU MM 150-450 MEAN PLATELET VOLUME (BEAKER) (test gxdb=930) 11.0 fL 9.4-12.3 NUCLEATED RED BLOOD CELLS (BEAKER) (test 0 /100 WBC 0-0 gazd=500) NEUTROPHILS RELATIVE PERCENT (BEAKER) (test 95 % eptn=015) LYMPHOCYTES RELATIVE PERCENT (BEAKER) (test 2 % xckq=494) MONOCYTES RELATIVE PERCENT (BEAKER) (test 2 % ijtx=707) EOSINOPHILS RELATIVE PERCENT (BEAKER) (test 0 % ydjw=138) BASOPHILS RELATIVE PERCENT (BEAKER) (test 0 % hyus=630) NEUTROPHILS ABSOLUTE COUNT (BEAKER) (test 19.18 K/ L 1.56-6.13 hwwn=157) LYMPHOCYTES ABSOLUTE COUNT (BEAKER) (test 0.40 K/ L 1.18-3.74 lqaq=262) MONOCYTES ABSOLUTE COUNT (BEAKER) (test 0.37 K/ L 0.24-0.36 qqih=881) EOSINOPHILS ABSOLUTE COUNT (BEAKER) (test 0.00 K/ L 0.04-0.36 xaae=401) BASOPHILS ABSOLUTE COUNT (BEAKER) (test 0.04 K/ L 0.01-0.08 ndtm=965) IMMATURE GRANULOCYTES-RELATIVE PERCENT (BEAKER) 1 % 0-1 (test kwnx=8981) POCT-GLUCOSE [id number] 13:19:00 Test Item Value Reference Range Comments POC-GLUCOSE METER (BEAKER) 198 mg/dL 70-[address] [facility] [address] (test nhcv=6825) [facility] [address] BODY FLUID CULTURE + GRAM [id number] 11:22:00 Test Item Value Reference Range Comments CULTURE (BEAKER) (test dpng=7868) No growth GRAM STAIN RESULT (BEAKER) (test <1+ WBCs ygpu=2006) GRAM STAIN RESULT (BEAKER) (test No organisms seen hpll=40980) RAD, CHEST, 1 VIEW, NON [id number] 08:47:00Reason for exam:->sobShould this be performed at [...] MDReport Verified Date/Time: 02/11/2017 08:47:53 Reading Location: [address] Neuro Reading Room BASIC METABOLIC [id number] 07:36:00 Test Item Value Reference Range Comments SODIUM (BEAKER) (test 138 meq/L 136-145 olnw=563) POTASSIUM (BEAKER) (test 3.7 meq/L 3.5-5.1 yltg=133) CHLORIDE (BEAKER) (test 96 meq/L 98-107 ofrq=274) CO2 (BEAKER) (test 33 meq/L 22-29 fpiv=405) BLOOD UREA NITROGEN 18 mg/dL 7-21 (BEAKER) (test qcuv=130) CREATININE (BEAKER) (test 0.61 mg/dL 0.57-1.25 njjb=758) GLUCOSE RANDOM (BEAKER) 247 mg/dL 70-105 (test hrre=581) CALCIUM (BEAKER) (test 8.4 mg/dL 8.4-10.2 pdgn=943) EGFR (BEAKER) (test 100 mL/min/1.73 sq m ESTIMATED GFR IS NOT cvys=8862) ACCURATE CREATININE CLEARANCE IN PREDICTING GLOMERULAR FILTRATION RATE. ESTIMATED GFR IS NOT APPLICABLE FOR DIALYSIS PATIENTS. POCT-GLUCOSE [id number] 22:00:00 Test Item Value Reference Range Comments POC-GLUCOSE METER (BEAKER) 366 mg/dL 70-110 Will Repeat Test/TESTED AT (test jwpa=8465) [facility] [address] [facility] [address] (MANUAL DIFFERENTIAL)2017-02-10 19:58:00 Test Item Value Reference Range Comments NEUTROPHILS - REL (DIFF) (BEAKER) (test 89 % qowd=4821) LYMPHOCYTES - REL (DIFF) (BEAKER) (test 2 % pdfd=5738) MONOCYTES - REL (DIFF) (BEAKER) (test ckua=5089) 6 % BANDS - REL (DIFF) (BEAKER) (test eynl=5072) 3 % 0-10 NEUTROPHILS - ABS (DIFF) (BEAKER) (test 24.21 K/ L 1.80-8.00 upeq=2528) LYMPHOCYTES - ABS (DIFF) (BEAKER) (test 0.54 K/ L 1.48-4.50 lzjr=4904) MONOCYTES - ABS (DIFF) (BEAKER) (test fkud=1294) 1.63 K/ L 0.00-1.30 BANDS-ABS (DIFF) (BEAKER) (test ggiy=5378) 0.8 K/ L 0.0-0.8 TOTAL COUNTED (BEAKER) (test tues=3620) 100 BANDS + SEGMENTED NEUTROPHILS (BEAKER) (test 25.02 uclb=4004) WBC MORPHOLOGY (BEAKER) (test mvoh=549) Normal PLT MORPHOLOGY (BEAKER) (test siyx=308) Normal RBC MORPHOLOGY (BEAKER) (test xlhl=697) Normal CBC W/PLT COUNT & AUTO [id number] 19:57:00 Test Item Value Reference Range Comments WHITE BLOOD CELL COUNT (BEAKER) (test kzld=941) 27.2 K/ L 3.5-10.5 RED BLOOD CELL COUNT (BEAKER) (test bmvr=484) 4.46 M/ L 3.93-5.22 HEMOGLOBIN (BEAKER) (test tvhx=546) 12.1 GM/DL 11.2-15.7 HEMATOCRIT (BEAKER) (test cxzk=149) 42.9 % 34.1-44.9 MEAN CORPUSCULAR VOLUME (BEAKER) (test rhea=369) 96.2 fL 79.4-94.8 MEAN CORPUSCULAR HEMOGLOBIN (BEAKER) (test 27.1 pg 25.6-32.2 ahtu=783) MEAN CORPUSCULAR HEMOGLOBIN CONC (BEAKER) (test 28.2 GM/DL 32.2-35.5 qyxb=777) RED CELL DISTRIBUTION WIDTH (BEAKER) (test 15.6 % 11.7-14.4 mufp=430) PLATELET COUNT (BEAKER) (test kcve=195) 318 K/CU MM 150-450 MEAN PLATELET VOLUME (BEAKER) (test qgzl=238) 11.0 fL 9.4-12.3 NUCLEATED RED BLOOD CELLS (BEAKER) (test 0 /100 WBC 0-0 hrsd=698) IMMATURE GRANULOCYTES-RELATIVE PERCENT (BEAKER) 1 % 0-1 (test cycf=4120) POCT-GLUCOSE [id number] 17:32:00 Test Item Value Reference Range Comments POC-GLUCOSE METER (BEAKER) 213 mg/dL 70-110 TESTED AT [place] [id number] [facility] (test poba=7235) [facility] [address] BLOOD GAS, [id number] 14:31:00 Test Item Value Reference Range Comments PH ARTERIAL (BEAKER) (test jbuy=781) 7.31 7.35-7.45 PCO2 ARTERIAL (BEAKER) (test ctwr=533) 70 mmHg 35-45 PO2 ARTERIAL (BEAKER) (test hvli=700) 50 mmHg 80-90 O2 SATURATION ARTERIAL (BEAKER) (test gxwr=779) 78.5 % 96.0-97.0 HCO3 ARTERIAL (BEAKER) (test flpa=494) 34 mmol/L 21-29 BASE EXCESS ARTERIAL (BEAKER) (test qiqs=712) 6.2 mmol/L -2.0-3.0 PATIENT TEMPERATURE (BEAKER) (test puwn=5990) 37.5 C FIO2 (BEAKER) (test uexy=6553) 21.0 % BLOOD GAS, [id number] 12:37:00 Test Item Value Reference Range Comments PH ARTERIAL (BEAKER) (test bblb=109) 7.27 7.35-7.45 PCO2 ARTERIAL (BEAKER) (test aapp=009) 76 mmHg 35-45 PO2 ARTERIAL (BEAKER) (test jkid=290) 123 mmHg 80-90 O2 SATURATION ARTERIAL (BEAKER) (test yofh=897) 97.7 % 96.0-97.0 HCO3 ARTERIAL (BEAKER) (test ticu=366) 34 mmol/L 21-29 BASE EXCESS ARTERIAL (BEAKER) (test dalv=642) 5.2 mmol/L -2.0-3.0 PATIENT TEMPERATURE (BEAKER) (test wcwu=6902) 37.5 C FIO2 (BEAKER) (test ttmv=8461) 36.0 % LACTIC ACID, VENOUS, WHOLE [id number] 10:45:00 Test Item Value Reference Range Comments LACTATE BLOOD VENOUS (2) (BEAKER) (test 1.8 mmol/L 0.5-2.2 gubv=4737) Effective 07/15/2015: Units/Reference Range ChangeNew: 0.5-2.2 mmol/L Previous: 5 -20 mg/dLBLOOD GAS, [id number] 10:40:00 Test Item Value Reference Range Comments PH ARTERIAL (BEAKER) (test wfts=371) 7.19 7.35-7.45 PCO2 ARTERIAL (BEAKER) (test fbrt=984) 93 mmHg 35-45 PO2 ARTERIAL (BEAKER) (test asjr=975) 56 mmHg 80-90 O2 SATURATION ARTERIAL (BEAKER) (test szug=587) 78.6 % 96.0-97.0 HCO3 ARTERIAL (BEAKER) (test ngjv=376) 34 mmol/L 21-29 BASE EXCESS ARTERIAL (BEAKER) (test dbxx=481) 3.8 mmol/L -2.0-3.0 PATIENT TEMPERATURE (BEAKER) (test pcjg=5895) 37.5 C FIO2 (BEAKER) (test pqzq=4569) 21.0 % BLOOD [id number] 10:00:00 Test Item Value Reference Range Comments CULTURE (BEAKER) (test wqdl=2290) No growth in 5 days POCT-GLUCOSE [id number] 08:06:00 Test Item Value Reference Range Comments POC-GLUCOSE METER (BEAKER) 297 mg/dL 70-110 TESTED AT [address] (test dzrn=1925) [place] [id number] BASIC METABOLIC [id number] 05:28:00 Test Item Value Reference Range Comments SODIUM (BEAKER) (test 136 meq/L 136-145 bbbf=086) POTASSIUM (BEAKER) (test 4.4 meq/L 3.5-5.1 vhdd=350) CHLORIDE (BEAKER) (test 98 meq/L 98-107 axjg=756) CO2 (BEAKER) (test 30 meq/L 22-29 jhqj=016) BLOOD UREA NITROGEN 23 mg/dL 7-21 (BEAKER) (test sdft=418) CREATININE (BEAKER) (test 0.82 mg/dL 0.57-1.25 bgqt=690) GLUCOSE RANDOM (BEAKER) 388 mg/dL 70-105 (test xlzl=065) CALCIUM (BEAKER) (test 8.6 mg/dL 8.4-10.2 stmb=616) EGFR (BEAKER) (test 71 mL/min/1.73 sq m ESTIMATED GFR IS NOT nyji=6349) ACCURATE CREATININE CLEARANCE IN PREDICTING GLOMERULAR FILTRATION RATE. ESTIMATED GFR IS NOT APPLICABLE FOR DIALYSIS PATIENTS. BLOOD [id number] 05:02:00 Test Item Value Reference Range Comments CULTURE (BEAKER) (test rrqd=4086) No growth in 5 days POCT-GLUCOSE [id number] 21:15:00 Test Item Value Reference Range Comments POC-GLUCOSE METER (BEAKER) 174 mg/dL 70-110 TESTED AT [place] [id number] [facility] (test vteh=8361) [place] [id number] POCT-GLUCOSE [id number] 18:38:00 Test Item Value Reference Range Comments POC-GLUCOSE METER (BEAKER) 202 mg/dL 70-110 TESTED AT [address] (test rhqr=8695) [facility] [address] RAD, CHEST, 1 VIEW, NON [id number] 15:27:00Reason for exam:->CoughShould this be performed at [...] Valdovinos MDReport Verified Date/Time:02/09/2017 15:27:55 Reading Location: [facility] Radiology Reading Room POCT-GLUCOSE [id number] 12:21:00 Test Item Value Reference Range Comments POC-GLUCOSE METER (BEAKER) 185 mg/dL 70-[address] [facility] [address] [facility] (test csoe=6064) [facility] [address] POCT-GLUCOSE [id number] 07:52:00 Test Item Value Reference Range Comments POC-GLUCOSE METER (BEAKER) 176 mg/dL 70-110 TESTED AT [address] (test aqjy=5341) [place] [id number] BASIC METABOLIC [id number] 05:59:00 Test Item Value Reference Range Comments SODIUM (BEAKER) (test 137 meq/L 136-145 lrvl=803) POTASSIUM (BEAKER) (test 4.4 meq/L 3.5-5.1 rjyl=722) CHLORIDE (BEAKER) (test 93 meq/L 98-107 sywd=235) CO2 (BEAKER) (test 40 meq/L 22-29 yvfy=978) BLOOD UREA NITROGEN 16 mg/dL 7-21 (BEAKER) (test sahh=107) CREATININE (BEAKER) (test 0.50 mg/dL 0.57-1.25 edxz=956) GLUCOSE RANDOM (BEAKER) 181 mg/dL 70-105 (test rlqt=648) CALCIUM (BEAKER) (test 8.1 mg/dL 8.4-10.2 bfol=979) EGFR (BEAKER) (test 125 mL/min/1.73 sq m ESTIMATED GFR IS NOT zugi=2604) ACCURATE CREATININE CLEARANCE IN PREDICTING GLOMERULAR FILTRATION RATE. ESTIMATED GFR IS NOT APPLICABLE FOR DIALYSIS PATIENTS. [id number] 05:04:00 Test Item Value Reference Range Comments MAGNESIUM (BEAKER) (test mkry=443) 2.1 mg/dL 1.6-2.6 CBC W/PLT COUNT & AUTO [id number] 04:50:00 Test Item Value Reference Range Comments WHITE BLOOD CELL COUNT (BEAKER) (test ygdm=813) 10.6 K/ L 3.5-10.5 RED BLOOD CELL COUNT (BEAKER) (test lgnv=376) 3.44 M/ L 3.93-5.22 HEMOGLOBIN (BEAKER) (test igai=998) 9.3 GM/DL 11.2-15.7 HEMATOCRIT (BEAKER) (test awxa=649) 31.9 % 34.1-44.9 MEAN CORPUSCULAR VOLUME (BEAKER) (test gjug=786) 92.7 fL 79.4-94.8 MEAN CORPUSCULAR HEMOGLOBIN (BEAKER) (test 27.0 pg 25.6-32.2 slhz=316) MEAN CORPUSCULAR HEMOGLOBIN CONC (BEAKER) (test 29.2 GM/DL 32.2-35.5 acgk=526) RED CELL DISTRIBUTION WIDTH (BEAKER) (test 15.4 % 11.7-14.4 flkc=732) PLATELET COUNT (BEAKER) (test npit=929) 156 K/CU MM 150-450 MEAN PLATELET VOLUME (BEAKER) (test eotc=807) 12.0 fL 9.4-12.3 NUCLEATED RED BLOOD CELLS (BEAKER) (test 0 /100 WBC 0-0 ggqz=099) NEUTROPHILS RELATIVE PERCENT (BEAKER) (test 90 % jgvh=085) LYMPHOCYTES RELATIVE PERCENT (BEAKER) (test 5 % sojw=749) MONOCYTES RELATIVE PERCENT (BEAKER) (test 4 % aaha=586) EOSINOPHILS RELATIVE PERCENT (BEAKER) (test 0 % kodd=731) BASOPHILS RELATIVE PERCENT (BEAKER) (test 0 % luaw=242) NEUTROPHILS ABSOLUTE COUNT (BEAKER) (test 9.52 K/ L 1.56-6.13 zxte=101) LYMPHOCYTES ABSOLUTE COUNT (BEAKER) (test 0.48 K/ L 1.18-3.74 kfrx=097) MONOCYTES ABSOLUTE COUNT (BEAKER) (test 0.46 K/ L 0.24-0.36 ehri=840) EOSINOPHILS ABSOLUTE COUNT (BEAKER) (test 0.00 K/ L 0.04-0.36 mhym=177) BASOPHILS ABSOLUTE COUNT (BEAKER) (test 0.01 K/ L 0.01-0.08 fruw=979) IMMATURE GRANULOCYTES-RELATIVE PERCENT (BEAKER) 1 % 0-1 (test mfoz=6391) POCT-GLUCOSE [id number] 20:33:00 Test Item Value Reference Range Comments POC-GLUCOSE METER (BEAKER) 200 mg/dL 70-110 TESTED AT [address] (test hsir=2334) [place] [address] POCT-GLUCOSE [id number] 19:24:00 Test Item Value Reference Range Comments POC-GLUCOSE METER (BEAKER) 237 mg/dL 70-110 TESTED AT [address] (test hhmw=9787) [place] [address] POCT-GLUCOSE [id number] 11:09:00 Test Item Value Reference Range Comments POC-GLUCOSE METER (BEAKER) 301 mg/dL 70-110 TESTED AT [address] (test oufb=3692) [place] [address] HEMOGLOBIN [id number] 10:56:00 Test Item Value Reference Range Comments HEMOGLOBIN A1C (BEAKER) (test zgkf=331) 5.8 % 4.3-6.1 POCT-GLUCOSE [id number] 07:55:00 Test Item Value Reference Range Comments POC-GLUCOSE METER (BEAKER) 216 mg/dL 70-110 TESTED AT [address] (test dles=7453) [place] [address] HEPATITIS C PCR, [id number] 05:55:00 Test Item Value Reference Range Comments HCV RESULT COMPONENT (BEAKER) HCV RNA not detected HCV RNA not detected (test cxjf=4247) This test uses a Real-Time Polymerase Chain Reaction (RT-PCR) methodology and was performed using ANN Ampliprep/ANN TaqMan HCV test kit version 2.0 ( [employer]).Reportable range for this assay is 15 - 100,000, 000 IU per mL (1.18 - 8.00 Log IU/mL).This test uses a Real-Time Polymerase Chain Reaction (RT-PCR) methodology and was performed using ANN Ampliprep/ ANN TaqMan HCV test kit version 2.0 ([employer]) .Reportable range for this assay is 15 - 100,000,000 IU per mL (1.18 - 8.00 Log IU/mL).[id number] 05:50:00 Test Item Value Reference Range Comments MAGNESIUM (BEAKER) (test vaqe=144) 2.0 mg/dL 1.6-2.6 COMPREHENSIVE METABOLIC [id number] 05:50:00 Test Item Value Reference Range Comments TOTAL PROTEIN (BEAKER) 6.0 gm/dL 6.0-8.3 (test eyig=082) ALBUMIN (BEAKER) (test 3.2 g/dL 3.5-5.0 dodd=2517) ALKALINE PHOSPHATASE 97 U/L 40-150 (BEAKER) (test iedw=078) BILIRUBIN TOTAL (BEAKER) 0.3 mg/dL 0.2-1.2 (test evfo=162) SODIUM (BEAKER) (test 139 meq/L 136-145 qdqw=764) POTASSIUM (BEAKER) (test 4.7 meq/L 3.5-5.1 ziwu=320) CHLORIDE (BEAKER) (test 96 meq/L 98-107 vrmb=276) CO2 (BEAKER) (test 37 meq/L 22-29 wvnl=225) BLOOD UREA NITROGEN 12 mg/dL 7-21 (BEAKER) (test tcva=028) CREATININE (BEAKER) (test 0.54 mg/dL 0.57-1.25 vtgl=196) GLUCOSE RANDOM (BEAKER) 172 mg/dL 70-105 (test rwyu=609) CALCIUM (BEAKER) (test 8.7 mg/dL 8.4-10.2 ebbi=997) AST (SGOT) (BEAKER) (test 33 U/L 5-34 hvhq=493) ALT (SGPT) (BEAKER) (test 33 U/L 6-55 uqlc=829) EGFR (BEAKER) (test 115 mL/min/1.73 sq ESTIMATED GFR IS NOT wrtg=3608) m ACCURATE CREATININE CLEARANCE IN PREDICTING GLOMERULAR FILTRATION RATE. ESTIMATED GFR IS NOT APPLICABLE FOR DIALYSIS PATIENTS. CBC W/PLT COUNT & AUTO [id number] 05:32:00 Test Item Value Reference Range Comments WHITE BLOOD CELL COUNT (BEAKER) (test bztt=043) 17.0 K/ L 3.5-10.5 RED BLOOD CELL COUNT (BEAKER) (test iogf=270) 3.42 M/ L 3.93-5.22 HEMOGLOBIN (BEAKER) (test iuhm=600) 9.4 GM/DL 11.2-15.7 HEMATOCRIT (BEAKER) (test bzmq=844) 32.0 % 34.1-44.9 MEAN CORPUSCULAR VOLUME (BEAKER) (test rnaa=632) 93.6 fL 79.4-94.8 MEAN CORPUSCULAR HEMOGLOBIN (BEAKER) (test 27.5 pg 25.6-32.2 scti=067) MEAN CORPUSCULAR HEMOGLOBIN CONC (BEAKER) (test 29.4 GM/DL 32.2-35.5 yvqi=185) RED CELL DISTRIBUTION WIDTH (BEAKER) (test 15.6 % 11.7-14.4 npvy=880) PLATELET COUNT (BEAKER) (test gzus=771) 169 K/CU MM 150-450 MEAN PLATELET VOLUME (BEAKER) (test exfw=232) 11.0 fL 9.4-12.3 NUCLEATED RED BLOOD CELLS (BEAKER) (test 0 /100 WBC 0-0 nkra=368) NEUTROPHILS RELATIVE PERCENT (BEAKER) (test 91 % ztdl=675) LYMPHOCYTES RELATIVE PERCENT (BEAKER) (test 4 % unku=572) MONOCYTES RELATIVE PERCENT (BEAKER) (test 5 % lzvg=668) EOSINOPHILS RELATIVE PERCENT (BEAKER) (test 0 % tydm=972) BASOPHILS RELATIVE PERCENT (BEAKER) (test 0 % zbsg=841) NEUTROPHILS ABSOLUTE COUNT (BEAKER) (test 15.41 K/ L 1.56-6.13 vjfm=903) LYMPHOCYTES ABSOLUTE COUNT (BEAKER) (test 0.60 K/ L 1.18-3.74 elgz=829) MONOCYTES ABSOLUTE COUNT (BEAKER) (test 0.78 K/ L 0.24-0.36 uwgn=839) EOSINOPHILS ABSOLUTE COUNT (BEAKER) (test 0.00 K/ L 0.04-0.36 usmn=182) BASOPHILS ABSOLUTE COUNT (BEAKER) (test 0.01 K/ L 0.01-0.08 tonr=410) IMMATURE GRANULOCYTES-RELATIVE PERCENT (BEAKER) 1 % 0-1 (test szxo=5058) POCT-GLUCOSE [id number] 22:20:00 Test Item Value Reference Range Comments POC-GLUCOSE METER (BEAKER) 323 mg/dL 70-110 Notified GUS PRATT/TESTED AT [facility] (test sges=7020) [address] [facility] [address] BODY FLUID CELL COUNT WITH [id number] 21:00:00 Test Item Value Reference Range Comments APPEARANCE FLUID (BEAKER) (test tkes=982) Slightly Cloudy Clear COLOR FLUID (BEAKER) (test snqg=390) Yellow Colorless, Straw RBC FLUID (BEAKER) (test wilo=974) 1000 /cu mm <=1 ADJUSTED WBC FLUID (BEAKER) (test 620 /cu mm <=5 vigh=9389) LINING CELLS (BEAKER) (test prkm=6983) 74 /cu mm <=1 NEUTROPHILS FLUID (BEAKER) (test mvjb=2200) 21 % LYMPHS FLUID (BEAKER) (test rvmp=232) 30 % MONO/MACROPHAGE FLUID (BEAKER) (test 49 % idkj=609) EOSINOPHILS FLUID (BEAKER) (test uplk=232) 0 % BASO FLUID (BEAKER) (test uaeo=826) 0 % CONTAINER BODY FLUID (BEAKER) (test EDTA Tube frbb=5675) POCT-GLUCOSE [id number] 20:51:00 Test Item Value Reference Range Comments POC-GLUCOSE METER (BEAKER) 343 mg/dL 70-110 Notified GUS PRATT/TESTED AT [facility] (test ltcz=2565) [address] [facility] [address] RAD, CHEST, 1 VIEW, NON [id number] 20:12:00Reason for exam:->right pleural effusion s/p thoracentesis [...] MDReport Verified Date/Time: 02/07/2017 20:12:46 Reading Location: [address] Reading Room LACTATE DEHYDROGENASE (LDH), BODY [id number] 19:12:00 Test Item Value Reference Range Comments LACTATE DEHYDROGENASE FLUID (BEAKER) < U/L Light's criteria identifies (test nzjj=062) effusions if one or more are pre Absence of reference range indicates that normals have not been defined.Assay performance has not been validated for this type of specimen.PROTEIN, BODY [id number] 19:12:00 Test Item Value Reference Range Comments PROTEIN FLUID (BEAKER) (test 1.8 g/dL Light's criteria identifies rnoz=846) effusions if one or more are pre Absence of reference range indicates that normals have not been defined.Assay performance has not been validated for this type of specimen.POCT-GLUCOSE [id number] 18:28:00 Test Item Value Reference Range Comments POC-GLUCOSE METER (BEAKER) 272 mg/dL 70-110 TESTED AT [address] (test ukla=2034) [place] [address] U/S, [id number] 18:23:00Laterality?->RightReason for exam:-> Diagnostic and therapeutic thorcaentesisFINAL [...] was prepped and anesthetized and a 5 Tajik needle/catheter was inserted into the right pleural space. Four 25 cc of yellowish fluid were removed. A chest x-ray was ordered. CONCLUSION: Ultrasound-guided thoracentesis Signed: Dell Pacheco [facility]epb[facility] Verified Date/Time: 02/07/2017 18:23:13 Reading Location : [facility] [id number] Ultrasound Reading Room URINE [id number] 15:17:00 Test Item Value Reference Range Comments CULTURE (BEAKER) (test >100,000 col/mL Susan glabrata pxps=9217) LACTATE DEHYDROGENASE (LDH)2017-02-07 14:18:00 Test Item Value Reference Range Comments LACTATE DEHYDROGENASE (BEAKER) (test kcbq=415) 296 U/L 125-220 [id number] 11:54:00 Test Item Value Reference Range Comments PROTIME (BEAKER) (test aiui=190) 13.4 seconds 11.7-14.7 INR (BEAKER) (test ouku=087) 1.0 <=5.9 PARTIAL THROMBOPLASTIN TIME (BEAKER) (test 25.9 seconds 22.5-36.0 mzlr=375) RECOMMENDED COUMADIN/WARFARIN INR THERAPY RANGESSTANDARD DOSE: 2.0 - 3.0 Includes: PROPHYLAXIS forvenous thrombosis, systemic embolization; TREATMENT for venous thrombosis and/or pulmonary embolus.HIGH RISK: Target INR is 2.5-3.5 for patients with mechanical heart valves.[id number] 05:39:00 Test Item Value Reference Range Comments MAGNESIUM (BEAKER) (test wdfy=116) 1.9 mg/dL 1.6-2.6 COMPREHENSIVE METABOLIC [id number] 05:39:00 Test Item Value Reference Range Comments TOTAL PROTEIN (BEAKER) 6.6 gm/dL 6.0-8.3 (test oddr=067) ALBUMIN (BEAKER) (test 3.5 g/dL 3.5-5.0 fpuw=6258) ALKALINE PHOSPHATASE 111 U/L 40-150 (BEAKER) (test sxxu=727) BILIRUBIN TOTAL (BEAKER) < mg/dL 0.2-1.2 (test vxqo=206) SODIUM (BEAKER) (test 137 meq/L 136-145 nfrv=490) POTASSIUM (BEAKER) (test 3.8 meq/L 3.5-5.1 ljaj=512) CHLORIDE (BEAKER) (test 99 meq/L 98-107 tcqz=712) CO2 (BEAKER) (test 31 meq/L 22-29 lbkq=997) BLOOD UREA NITROGEN 11 mg/dL 7-21 (BEAKER) (test hngv=535) CREATININE (BEAKER) (test 0.61 mg/dL 0.57-1.25 gjqz=517) GLUCOSE RANDOM (BEAKER) 221 mg/dL 70-105 (test dxqt=199) CALCIUM (BEAKER) (test 8.5 mg/dL 8.4-10.2 hjpi=168) AST (SGOT) (BEAKER) (test 12 U/L 5-34 ipzz=037) ALT (SGPT) (BEAKER) (test 24 U/L 6-55 rbyk=047) EGFR (BEAKER) (test 100 mL/min/1.73 sq ESTIMATED GFR IS NOT mjgx=4989) m ACCURATE CREATININE CLEARANCE IN PREDICTING GLOMERULAR FILTRATION RATE. ESTIMATED GFR IS NOT APPLICABLE FOR DIALYSIS PATIENTS. LIPID [id number] 05:39:00 Test Item Value Reference Range Comments TRIGLYCERIDES (BEAKER) (test qsiv=481) 101 mg/dL CHOLESTEROL (BEAKER) (test jemh=561) 134 mg/dL HDL CHOLESTEROL (BEAKER) (test qvgz=871) 52 mg/dL LDL CHOLESTEROL CALCULATED (BEAKER) (test 62 mg/dL fisp=859) Triglyceride Reference Range: Low Risk <150 Borderline 150- 199 High Risk 200-499 Very High Risk >=500Cholesterol Reference Range: Low Risk <200 Borderline 200-239 High Risk > 240HDL Cholesterol Reference Range: Low Risk >=60 High Risk <40LDL Cholesterol Reference Range: Optimal <100 Near Optimal 100-129 Borderline 130-159 High 160-189 Very High >=190CBC W/PLT COUNT & AUTO [id number] 04:29:00 Test Item Value Reference Range Comments WHITE BLOOD CELL COUNT (BEAKER) (test dmks=620) 11.2 K/ L 3.5-10.5 RED BLOOD CELL COUNT (BEAKER) (test txhp=189) 3.72 M/ L 3.93-5.22 HEMOGLOBIN (BEAKER) (test wujr=190) 10.1 GM/DL 11.2-15.7 HEMATOCRIT (BEAKER) (test pctl=439) 33.8 % 34.1-44.9 MEAN CORPUSCULAR VOLUME (BEAKER) (test whve=526) 90.9 fL 79.4-94.8 MEAN CORPUSCULAR HEMOGLOBIN (BEAKER) (test 27.2 pg 25.6-32.2 kdrc=953) MEAN CORPUSCULAR HEMOGLOBIN CONC (BEAKER) (test 29.9 GM/DL 32.2-35.5 hvtj=361) RED CELL DISTRIBUTION WIDTH (BEAKER) (test 15.7 % 11.7-14.4 opix=356) PLATELET COUNT (BEAKER) (test hibx=279) 238 K/CU MM 150-450 MEAN PLATELET VOLUME (BEAKER) (test meae=683) 11.1 fL 9.4-12.3 NUCLEATED RED BLOOD CELLS (BEAKER) (test 0 /100 WBC 0-0 rbyw=109) NEUTROPHILS RELATIVE PERCENT (BEAKER) (test 87 % esak=405) LYMPHOCYTES RELATIVE PERCENT (BEAKER) (test 6 % befo=705) MONOCYTES RELATIVE PERCENT (BEAKER) (test 5 % enoj=961) EOSINOPHILS RELATIVE PERCENT (BEAKER) (test 0 % axtz=078) BASOPHILS RELATIVE PERCENT (BEAKER) (test 0 % lkoh=394) NEUTROPHILS ABSOLUTE COUNT (BEAKER) (test 9.80 K/ L 1.56-6.13 bukf=163) LYMPHOCYTES ABSOLUTE COUNT (BEAKER) (test 0.72 K/ L 1.18-3.74 kdep=981) MONOCYTES ABSOLUTE COUNT (BEAKER) (test 0.57 K/ L 0.24-0.36 uycz=558) EOSINOPHILS ABSOLUTE COUNT (BEAKER) (test 0.00 K/ L 0.04-0.36 hgja=994) BASOPHILS ABSOLUTE COUNT (BEAKER) (test 0.00 K/ L 0.01-0.08 bvwj=614) IMMATURE GRANULOCYTES-RELATIVE PERCENT (BEAKER) 1 % 0-1 (test feqi=3416) CT, CHEST, WITHOUT [id number] 23:24:00FINAL REPORT INDICATION: 62-year-old female with hypoxia. [...] Verified Date/Time: 02/06/2017 23: 24:50 Reading Location: [facility] C013 Consult Reading Room TSH/FREE T4 IF [id number] 19:48:00 Test Item Value Reference Range Comments THYROID STIMULATING HORMONE (BEAKER) (test 0.47 uIU/mL 0.35-4.94 ompf=094) RESPIRATORY PANEL [id number] 14:57:00 Test Item Value Reference Range Comments HUMAN METAPNEUMOVIRUS (BEAKER) (test Not detected Not detected, Inconclusive yukm=2051) RHINOVIRUS (BEAKER) (test ezuq=8097) Not detected Not detected, Inconclusive INFLUENZA A (BEAKER) (test Not detected Not detected, Inconclusive bukb=3455) INFLUENZA A SUBTYPE H1 (BEAKER) Not detected Not detected, Inconclusive (test aqrj=1276) INFLUENZA A SUBTYPE H3 (BEAKER) Not detected Not detected, Inconclusive (test zjkq=2957) INFLUENZA A SUBTYPE H1-2009 (BEAKER) Not detected Not detected, Inconclusive (test pazh=6873) INFLUENZA B (BEAKER) (test Not detected Not detected, Inconclusive qavu=3243) RESPIRATORY SYNCYTIAL VIRUS (BEAKER) Not detected Not detected, Inconclusive (test stba=6099) PARAINFLUENZA VIRUS 1 (BEAKER) (test Not detected Not detected, Inconclusive blrb=4101) PARAINFLUENZA VIRUS 2 (BEAKER) (test Not detected Not detected, Inconclusive cmjy=8590) PARAINFLUENZA VIRUS 3 (BEAKER) (test Not detected Not detected, Inconclusive ifdo=4155) PARAINFLUENZA VIRUS 4 (BEAKER) (test Not detected Not detected, Inconclusive svvu=2095) ADENOVIRUS (BEAKER) (test zwhq=4579) Not detected Not detected, Inconclusive CORONAVIRUS 229E (BEAKER) (test Not detected Not detected, Inconclusive mwrs=0196) CORONAVIRUS HKU1 (BEAKER) (test Not detected Not detected, Inconclusive mubi=8112) CORONAVIRUS NL63 (BEAKER) (test Not detected Not detected, Inconclusive fdtm=9007) CORONAVIRUS OC43 (BEAKER) (test Not detected Not detected, Inconclusive gwfh=8561) BORDETELLA PERTUSSIS (BEAKER) (test Not detected Not detected, Inconclusive wbxo=7276) CHLAMYDOPHILA PNEUMONIAE (BEAKER) Not detected Not detected, Inconclusive (test cmgl=6227) MYCOPLASMA PNEUMONIAE (BEAKER) (test Not detected Not detected, Inconclusive qkwu=6863) TROPONIN [id number] 13:31:00 Test Item Value Reference Range Comments TROPONIN I (BEAKER) (test krdj=727) 0.08 ng/mL 0.00-0.03 Troponin I (TnI) levels [...] acute neurological disease, and persistent tachyarrhythmia.VANCOMYCIN LEVEL, [id number] 09:30 :00 Test Item Value Reference Range Comments VANCOMYCIN TROUGH (BEAKER) (test puqj=849) 8.6 ug/mL 10.0-20.0 [id number] 07:03:00 Test Item Value Reference Range Comments MAGNESIUM (BEAKER) (test sgau=018) 1.7 mg/dL 1.6-2.6 COMPREHENSIVE METABOLIC [id number] 07:03:00 Test Item Value Reference Range Comments TOTAL PROTEIN (BEAKER) 5.6 gm/dL 6.0-8.3 (test uvpe=599) ALBUMIN (BEAKER) (test 3.0 g/dL 3.5-5.0 utrr=4171) ALKALINE PHOSPHATASE 106 U/L 40-150 (BEAKER) (test zcrm=265) BILIRUBIN TOTAL (BEAKER) < mg/dL 0.2-1.2 (test luyv=181) SODIUM (BEAKER) (test 136 meq/L 136-145 xvmf=059) POTASSIUM (BEAKER) (test 3.8 meq/L 3.5-5.1 iwtu=045) CHLORIDE (BEAKER) (test 96 meq/L 98-107 zfqn=359) CO2 (BEAKER) (test 33 meq/L 22-29 vpjn=479) BLOOD UREA NITROGEN 13 mg/dL 7-21 (BEAKER) (test qosk=928) CREATININE (BEAKER) (test 0.56 mg/dL 0.57-1.25 uzod=688) GLUCOSE RANDOM (BEAKER) 250 mg/dL 70-105 (test ovoa=889) CALCIUM (BEAKER) (test 8.3 mg/dL 8.4-10.2 tgzp=074) AST (SGOT) (BEAKER) (test 12 U/L 5-34 txsv=998) ALT (SGPT) (BEAKER) (test 24 U/L 6-55 ofbu=629) EGFR (BEAKER) (test 110 mL/min/1.73 sq ESTIMATED GFR IS NOT sdas=8889) m ACCURATE CREATININE CLEARANCE IN PREDICTING GLOMERULAR FILTRATION RATE. ESTIMATED GFR IS NOT APPLICABLE FOR DIALYSIS PATIENTS. TROPONIN [id number] 07:00:00 Test Item Value Reference Range Comments TROPONIN I (BEAKER) (test pjfn=264) 0.10 ng/mL 0.00-0.03 Troponin I (TnI) levels [...] acidosis, acute neurological disease, and persistent tachyarrhythmia.TROPONIN [id number] 07:00:00 Test Item Value Reference Range Comments TROPONIN I (BEAKER) (test enqd=133) 0.09 ng/mL 0.00-0.03 Troponin I (TnI) levels [...] and persistent tachyarrhythmia.CBC W/PLT COUNT & AUTO [id number] 06:20:00 Test Item Value Reference Range Comments WHITE BLOOD CELL COUNT (BEAKER) (test dqqb=906) 10.2 K/ L 3.5-10.5 RED BLOOD CELL COUNT (BEAKER) (test pvap=455) 3.35 M/ L 3.93-5.22 HEMOGLOBIN (BEAKER) (test tqse=817) 9.2 GM/DL 11.2-15.7 HEMATOCRIT (BEAKER) (test dzib=246) 29.6 % 34.1-44.9 MEAN CORPUSCULAR VOLUME (BEAKER) (test tdit=302) 88.4 fL 79.4-94.8 MEAN CORPUSCULAR HEMOGLOBIN (BEAKER) (test 27.5 pg 25.6-32.2 nwti=984) MEAN CORPUSCULAR HEMOGLOBIN CONC (BEAKER) (test 31.1 GM/DL 32.2-35.5 dbee=184) RED CELL DISTRIBUTION WIDTH (BEAKER) (test 16.1 % 11.7-14.4 ryrs=472) PLATELET COUNT (BEAKER) (test nfwd=863) 185 K/CU MM 150-450 MEAN PLATELET VOLUME (BEAKER) (test jaju=931) 11.0 fL 9.4-12.3 NUCLEATED RED BLOOD CELLS (BEAKER) (test 0 /100 WBC 0-0 mpeo=513) NEUTROPHILS RELATIVE PERCENT (BEAKER) (test 91 % zfqx=923) LYMPHOCYTES RELATIVE PERCENT (BEAKER) (test 4 % cavf=943) MONOCYTES RELATIVE PERCENT (BEAKER) (test 4 % arlt=341) EOSINOPHILS RELATIVE PERCENT (BEAKER) (test 0 % muko=803) BASOPHILS RELATIVE PERCENT (BEAKER) (test 0 % wcwf=680) NEUTROPHILS ABSOLUTE COUNT (BEAKER) (test 9.34 K/ L 1.56-6.13 mvqv=621) LYMPHOCYTES ABSOLUTE COUNT (BEAKER) (test 0.37 K/ L 1.18-3.74 gspj=901) MONOCYTES ABSOLUTE COUNT (BEAKER) (test 0.45 K/ L 0.24-0.36 ychb=902) EOSINOPHILS ABSOLUTE COUNT (BEAKER) (test 0.00 K/ L 0.04-0.36 imog=171) BASOPHILS ABSOLUTE COUNT (BEAKER) (test 0.01 K/ L 0.01-0.08 lyyt=549) IMMATURE GRANULOCYTES-RELATIVE PERCENT (BEAKER) 1 % 0-1 (test pjub=4074) [id number] 13:17:00 Test Item Value Reference Range Comments PROCALCITONIN (BEAKER) (test iaut=0945) 0.26 ng/mL <0.05 SEPSIS RISK (ng/mL)Low: 0.05-0.50Intermediate: 0.51-2.00High: & gt;=2.01POCT-GLUCOSE [id number] 11:40:00 Test Item Value Reference Range Comments POC-GLUCOSE METER (BEAKER) 162 mg/dL 70-110 TESTED AT [address] (test lrio=6793) [place] [id number] POCT-GLUCOSE [id number] 07:20:00 Test Item Value Reference Range Comments POC-GLUCOSE METER (BEAKER) 97 mg/dL 70-110 TESTED AT [address] (test ywnc=8661) [facility] [id number] CBC W/PLT COUNT & AUTO [id number] 06:11:00 Test Item Value Reference Range Comments WHITE BLOOD CELL COUNT (BEAKER) (test nkak=892) 7.2 K/ L 3.5-10.5 RED BLOOD CELL COUNT (BEAKER) (test pdjc=925) 3.77 M/ L 3.93-5.22 HEMOGLOBIN (BEAKER) (test ybot=225) 10.1 GM/DL 11.2-15.7 HEMATOCRIT (BEAKER) (test jhvu=976) 32.9 % 34.1-44.9 MEAN CORPUSCULAR VOLUME (BEAKER) (test tkud=244) 87.3 fL 79.4-94.8 MEAN CORPUSCULAR HEMOGLOBIN (BEAKER) (test 26.8 pg 25.6-32.2 ihfd=594) MEAN CORPUSCULAR HEMOGLOBIN CONC (BEAKER) (test 30.7 GM/DL 32.2-35.5 owwv=326) RED CELL DISTRIBUTION WIDTH (BEAKER) (test 16.2 % 11.7-14.4 cgdf=889) PLATELET COUNT (BEAKER) (test rstn=783) 222 K/CU MM 150-450 MEAN PLATELET VOLUME (BEAKER) (test ammi=378) 11.1 fL 9.4-12.3 NUCLEATED RED BLOOD CELLS (BEAKER) (test 0 /100 WBC 0-0 ihar=694) NEUTROPHILS RELATIVE PERCENT (BEAKER) (test 90 % aagj=621) LYMPHOCYTES RELATIVE PERCENT (BEAKER) (test 7 % uewq=985) MONOCYTES RELATIVE PERCENT (BEAKER) (test 2 % ynvl=493) EOSINOPHILS RELATIVE PERCENT (BEAKER) (test 0 % slax=393) BASOPHILS RELATIVE PERCENT (BEAKER) (test 0 % ehmq=903) NEUTROPHILS ABSOLUTE COUNT (BEAKER) (test 6.45 K/ L 1.56-6.13 rvve=999) LYMPHOCYTES ABSOLUTE COUNT (BEAKER) (test 0.53 K/ L 1.18-3.74 jomz=280) MONOCYTES ABSOLUTE COUNT (BEAKER) (test 0.16 K/ L 0.24-0.36 hnlb=935) EOSINOPHILS ABSOLUTE COUNT (BEAKER) (test 0.00 K/ L 0.04-0.36 ylby=299) BASOPHILS ABSOLUTE COUNT (BEAKER) (test 0.01 K/ L 0.01-0.08 czmk=629) IMMATURE GRANULOCYTES-RELATIVE PERCENT (BEAKER) 1 % 0-1 (test hogd=9848) [id number] 05:50:00 Test Item Value Reference Range Comments MAGNESIUM (BEAKER) (test qmcx=913) 1.4 mg/dL 1.6-2.6 COMPREHENSIVE METABOLIC [id number] 05:50:00 Test Item Value Reference Range Comments TOTAL PROTEIN (BEAKER) 5.8 gm/dL 6.0-8.3 (test vrdc=308) ALBUMIN (BEAKER) (test 2.9 g/dL 3.5-5.0 nmdu=6929) ALKALINE PHOSPHATASE 130 U/L 40-150 (BEAKER) (test mwnx=217) BILIRUBIN TOTAL (BEAKER) 0.4 mg/dL 0.2-1.2 (test umho=685) SODIUM (BEAKER) (test 138 meq/L 136-145 dvln=383) POTASSIUM (BEAKER) (test 3.0 meq/L 3.5-5.1 xhsc=724) CHLORIDE (BEAKER) (test 93 meq/L 98-107 rtmy=122) CO2 (BEAKER) (test 32 meq/L 22-29 leno=795) BLOOD UREA NITROGEN 19 mg/dL 7-21 (BEAKER) (test ohgv=326) CREATININE (BEAKER) (test 0.63 mg/dL 0.57-1.25 zxkf=367) GLUCOSE RANDOM (BEAKER) 104 mg/dL 70-105 (test yiac=965) CALCIUM (BEAKER) (test 8.3 mg/dL 8.4-10.2 jhiy=157) AST (SGOT) (BEAKER) (test 25 U/L 5-34 wdci=788) ALT (SGPT) (BEAKER) (test 29 U/L 6-55 msca=570) EGFR (BEAKER) (test 96 mL/min/1.73 sq m ESTIMATED GFR IS NOT wpss=5585) ACCURATE CREATININE CLEARANCE IN PREDICTING GLOMERULAR FILTRATION RATE. ESTIMATED GFR IS NOT APPLICABLE FOR DIALYSIS PATIENTS. BLOOD GAS, [id number] 05:06:00 Test Item Value Reference Range Comments PH ARTERIAL (BEAKER) (test piez=234) 7.48 7.35-7.45 PCO2 ARTERIAL (BEAKER) (test ijvq=535) 49 mmHg 35-45 PO2 ARTERIAL (BEAKER) (test psfe=558) 77 mmHg 80-90 O2 SATURATION ARTERIAL (BEAKER) (test yzyn=538) 96.0 % 96.0-97.0 HCO3 ARTERIAL (BEAKER) (test yzsq=149) 36 mmol/L 21-29 BASE EXCESS ARTERIAL (BEAKER) (test dnbi=095) 10.7 mmol/L -2.0-3.0 PATIENT TEMPERATURE (BEAKER) (test qarn=0627) 37.0 C FIO2 (BEAKER) (test ilnn=4224) 24.0 % HEPATITIS C [id number] 01:28:00 Test Item Value Reference Range Comments HEPATITIS C ANTIBODY (BEAKER) (test oija=801) Equivocal Nonreactive RAPID INFLUENZA A&B [id number] 22:53:00 Test Item Value Reference Range Comments RAPID INFLUENZA A AG (BEAKER) (test Negative Negative, Inconclusive aqye=9616) RAPID INFLUENZA B AG (BEAKER) (test Negative Negative, Inconclusive ifrx=9785) URINALYSIS W/ [id number] 22:38:00 Test Item Value Reference Range Comments COLOR (BEAKER) (test ceva=449) Yellow CLARITY (BEAKER) (test sdnu=651) Clear SPECIFIC GRAVITY UA (BEAKER) (test ofsh=658) 1.019 1.001-1.035 PH UA (BEAKER) (test xcli=885) 5.0 5.0-8.0 PROTEIN UA (BEAKER) (test rcdn=635) 10 mg/dL Negative GLUCOSE UA (BEAKER) (test oaxd=370) Negative Negative KETONES UA (BEAKER) (test cpeh=195) 80 mg/dL Negative BILIRUBIN UA (BEAKER) (test kbao=144) Negative Negative BLOOD UA (BEAKER) (test osws=693) Negative Negative NITRITE UA (BEAKER) (test xwxf=863) Negative Negative LEUKOCYTE ESTERASE UA (BEAKER) (test earq=671) Small Negative UROBILINOGEN UA (BEAKER) (test tzmk=276) 0.2 mg/dL 0.2-1.0 RBC UA (BEAKER) (test rfee=415) 1 /HPF WBC UA (BEAKER) (test luhd=285) 9 /HPF BACTERIA (BEAKER) (test iiik=584) Rare MUCUS (BEAKER) (test uwwy=3032) Rare SQUAMOUS EPITHELIAL (BEAKER) (test rwcn=187) 1 /HPF CASTS (BEAKER) (test jwvy=6001) 2 /LPF CRYSTALS, URINE (BEAKER) (test lrhm=4149) Rare SOURCE(BEAKER) (test rmtv=7343) Urine, [place] HEPATITIS B CORE ANTIBODY, [id number] 22:36:00 Test Item Value Reference Range Comments HEPATITIS B CORE TOTAL ANTIBODY (BEAKER) (test Nonreactive Nonreactive aboj=701) HIV-1 ANTIGEN WITH HIV-1/2 [id number] 22:36:00 Test Item Value Reference Range Comments HIV-1 ANTIGEN WITH HIV 1\T\2 ANTIBODY (2) Nonreactive Nonreactive (BEAKER) (test muby=2452) PROTHROMBIN [id number] 22:34:00 Test Item Value Reference Range Comments PROTIME (BEAKER) (test jxtz=699) 14.3 seconds 11.7-14.7 INR (BEAKER) (test qoex=050) 1.1 <=5.9 RECOMMENDED COUMADIN/WARFARIN INR THERAPY RANGESSTANDARD DOSE: 2.0 - 3.0 Includes: PROPHYLAXIS forvenous thrombosis, systemic embolization; TREATMENT for venous thrombosis and/or pulmonary embolus.HIGH RISK: Target INR is 2.5-3.5 for patients with mechanical heart valves.TROPONIN [id number] 22:24:00 Test Item Value Reference Range Comments TROPONIN I (BEAKER) (test ierv=752) 0.19 ng/mL 0.00-0.03 Troponin I (TnI) levels [...] NATRIURETIC PEPTIDE (BEAKER) (test 364 pg/mL 0-100 dpae=764) [id number] 22:14:00 Test Item Value Reference Range Comments PHOSPHORUS (BEAKER) (test cyvb=740) 3.4 mg/dL 2.3-4.7 [id number] 22:14:00 Test Item Value Reference Range Comments MAGNESIUM (BEAKER) (test wpyy=369) 1.7 mg/dL 1.6-2.6 COMPREHENSIVE METABOLIC [id number] 22:14:00 Test Item Value Reference Range Comments TOTAL PROTEIN (BEAKER) 5.5 gm/dL 6.0-8.3 (test tnak=169) ALBUMIN (BEAKER) (test 2.9 g/dL 3.5-5.0 muia=3102) ALKALINE PHOSPHATASE 134 U/L 40-150 (BEAKER) (test bspq=162) BILIRUBIN TOTAL (BEAKER) 0.4 mg/dL 0.2-1.2 (test hyqp=546) SODIUM (BEAKER) (test 138 meq/L 136-145 mxvp=422) POTASSIUM (BEAKER) (test 3.6 meq/L 3.5-5.1 kkfn=332) CHLORIDE (BEAKER) (test 97 meq/L 98-107 ogtc=050) CO2 (BEAKER) (test 31 meq/L 22-29 lxkb=612) BLOOD UREA NITROGEN 20 mg/dL 7-21 (BEAKER) (test xlsa=747) CREATININE (BEAKER) (test 0.58 mg/dL 0.57-1.25 ucrb=332) GLUCOSE RANDOM (BEAKER) 75 mg/dL 70-105 (test dfmr=180) CALCIUM (BEAKER) (test 8.3 mg/dL 8.4-10.2 vrzs=536) AST (SGOT) (BEAKER) (test 31 U/L 5-34 xxgs=751) ALT (SGPT) (BEAKER) (test 30 U/L 6-55 zubg=937) EGFR (BEAKER) (test 106 mL/min/1.73 sq ESTIMATED GFR IS NOT enjx=1631) m ACCURATE CREATININE CLEARANCE IN PREDICTING GLOMERULAR FILTRATION RATE. ESTIMATED GFR IS NOT APPLICABLE FOR DIALYSIS PATIENTS. CBC W/PLT COUNT & AUTO [id number] 22:11:00 Test Item Value Reference Range Comments WHITE BLOOD CELL COUNT (BEAKER) (test mhdo=423) 6.6 K/ L 3.5-10.5 RED BLOOD CELL COUNT (BEAKER) (test xlgw=769) 3.51 M/ L 3.93-5.22 HEMOGLOBIN (BEAKER) (test gezt=213) 9.7 GM/DL 11.2-15.7 HEMATOCRIT (BEAKER) (test wecw=886) 31.6 % 34.1-44.9 MEAN CORPUSCULAR VOLUME (BEAKER) (test hakm=979) 90.0 fL 79.4-94.8 MEAN CORPUSCULAR HEMOGLOBIN (BEAKER) (test 27.6 pg 25.6-32.2 wetz=153) MEAN CORPUSCULAR HEMOGLOBIN CONC (BEAKER) (test 30.7 GM/DL 32.2-35.5 gbwz=346) RED CELL DISTRIBUTION WIDTH (BEAKER) (test 16.0 % 11.7-14.4 fjyk=723) PLATELET COUNT (BEAKER) (test bxev=683) 197 K/CU MM 150-450 MEAN PLATELET VOLUME (BEAKER) (test vioy=844) 11.0 fL 9.4-12.3 NUCLEATED RED BLOOD CELLS (BEAKER) (test 0 /100 WBC 0-0 vfmp=468) NEUTROPHILS RELATIVE PERCENT (BEAKER) (test 92 % msjm=417) LYMPHOCYTES RELATIVE PERCENT (BEAKER) (test 6 % krjt=642) MONOCYTES RELATIVE PERCENT (BEAKER) (test 1 % tyru=120) EOSINOPHILS RELATIVE PERCENT (BEAKER) (test 0 % rire=029) BASOPHILS RELATIVE PERCENT (BEAKER) (test 0 % latp=644) NEUTROPHILS ABSOLUTE COUNT (BEAKER) (test 6.08 K/ L 1.56-6.13 qcwc=006) LYMPHOCYTES ABSOLUTE COUNT (BEAKER) (test 0.40 K/ L 1.18-3.74 jrvs=467) MONOCYTES ABSOLUTE COUNT (BEAKER) (test 0.08 K/ L 0.24-0.36 auer=859) EOSINOPHILS ABSOLUTE COUNT (BEAKER) (test 0.00 K/ L 0.04-0.36 dyse=969) BASOPHILS ABSOLUTE COUNT (BEAKER) (test 0.01 K/ L 0.01-0.08 dfna=225) IMMATURE GRANULOCYTES-RELATIVE PERCENT (BEAKER) 1 % 0-1 (test abih=5298) BLOOD GAS, [id number] 20:15:00 Test Item Value Reference Range Comments PH ARTERIAL (BEAKER) (test oohn=143) 7.40 7.35-7.45 PCO2 ARTERIAL (BEAKER) (test tkaa=212) 58 mmHg 35-45 PO2 ARTERIAL (BEAKER) (test cjvk=338) 89 mmHg 80-90 O2 SATURATION ARTERIAL (BEAKER) (test neji=106) 96.6 % 96.0-97.0 HCO3 ARTERIAL (BEAKER) (test mylq=680) 35 mmol/L 21-29 BASE EXCESS ARTERIAL (BEAKER) (test atbc=003) 8.7 mmol/L -2.0-3.0 PATIENT TEMPERATURE (BEAKER) (test bvpg=6931) 37.0 C FIO2 (BEAKER) (test ovqt=9798) 24.0 % RAD, CHEST, 1 VIEW, NON [id number] 19:30:00Post-intubationReason for exam:-& gt;transfer from OSH, intubated/respiratory [...] MDReport Verified Date/Time: 02/04/2017 19: 30:53 Reading Location:[address] Reading Room
[2018-05-01] MEDS ORDERED: HYDROCODONE/APAP 5/325 MG TAB ONE (11:04)
--- NOTE | 2018-05-01 13:20 | RAD REPORT ---
EXAM DESCRIPTION: RAD - Hip Right 1 View - 05/01/2018 1:01 pm CLINICAL HISTORY: hip pain, fall COMPARISON: Hip Right 2 View dated 08/21/2006; Pelvis dated 05/01/2018; Abdomen 1 View (KUB) dated FINDINGS: AP pelvis and right hip - multiple projections are submitted Intramedullary rods with proximal compression screws are present in both femurs. Mild heterotopic bon e is seen along the superior margin the right greater trochanter. No acute fracture is suspected.
--- NOTE | 2018-05-01 13:28 | RAD REPORT ---
EXAM DESCRIPTION: RAD - Pelvis - 05/01/2018 1:01 pm CLINICAL HISTORY: Hip pain, fall COMPARISON: Hip Right 2 View dated 08/21/2006; Pelvis dated 05/01/2018; Abdomen 1 View (KUB) dated FINDINGS: AP pelvis and right hip - multiple projections are submitted Intramedullary rods with proximal compression screws are present in both femurs. Mild heterotopic bon e is seen along the superior margin the right greater trochanter. Equivocal lucency is seen in the gr eater trochanter of the proximal right femur.
[2018-05-01] MEDS ORDERED: ONDANSETRON 4 MG/2 ML VIAL ONE (14:44)
[2018-05-01] MEDS ORDERED: MORPHINE 4 MG/ML SYR ONE (14:44)
--- NOTE | 2018-05-01 14:44 | RAD REPORT ---
EXAM DESCRIPTION: CT - Pelvis Wo Cont - 05/01/2018 2:35 pm CLINICAL HISTORY: right hip pain Fall, right hip pain COMPARISON: PELVIS W O CONTRAST dated 12/21/2006 TECHNIQUE: All CT scans are performed using dose optimization technique as appropriate and may inclu de automated exposure control or mA/KV adjustment according to patient size. FINDINGS: Intramedullary rods with multiple compression screws are present in both femurs. The bones are significantly osteopenic. Mild cortical discontinuity is seen involving the greater trochanter of the proximal right femur with adjacent soft tissue swelling compatible with a fracture. The fracture is not significantly displace d. Moderate stool is present in the rectum. IMPRESSION: Nondisplaced fracture involving the greater trochanter of the proximal right femur. Intr amedullary bryan with large dynamic compression screw is in place in the right femur without complicati on evident.
[2018-05-01] MEDS ORDERED: ONDANSETRON 4 MG (ODT) TAB ONE (15:07)
--- NOTE | 2018-05-01 15:22 | ER ---
Nurse's Notes [facility] Name: Alee Humphrey Age: 63 yrs Sex: Female : 1955 Arrival Date: 05/01/2018 Time: 10:29 Bed 16 Private MD: Diagnosis: Nondisplaced fracture of greater trochanter of right femur Presentation: 05/01 10:30 Presenting complaint: EMS states: 65 yr. old female, A \T\ O x 4, fell in her kitchen rb1 about an hour ago. Denies hitting head, LOC, chest pain, or shortness of breath. Does not take any blood thinners. No visible deformities, ROM intact. Vital signs are stable. When EMS arrived pt. was in the 80's on RA, they administered O2 2 L NC sat 96%. History of COPD. Transition of care: patient was not received from another setting of care. Onset of symptoms was May 01, 2018 at 09:30. Risk Assessment: Do you want to hurt yourself or someone else? Patient reports no desire to harm self or others. Care prior to arrival: None. 10:30 Method Of Arrival: EMS: [facility] rb1 10:30 Acuity: FARHAT 3 rb1 10:30 Initial Sepsis Screen: Does the patient meet any 2 criteria? No. Patient's initial rb1 sepsis screen is negative. Does the patient have a suspected source of infection? No. Patient's initial sepsis screen is negative. Triage Assessment: 10:30 General: Appears in no apparent distress. comfortable, slender, Behavior is calm, rb1 cooperative. Pain: Complains of pain in right hip Pain currently is 8 out of 10 on a pain scale. Pain began 1 hour ago. Neuro: Level of Consciousness is awake, alert, obeys commands, Oriented to person, place, time, situation. Cardiovascular: Capillary refill is > 3 seconds in bilateral toes pt. has history of poor circulation on the lower extremities.. Respiratory: Airway is patent Respiratory effort is even, unlabored, Respiratory pattern is regular, symmetrical. GI: No signs and/or symptoms were reported involving the gastrointestinal system. : No signs and/or symptoms were reported regarding the genitourinary system. Derm: Skin is purple discoloration noted to the lower extremities due to poor circulation per pt. report. Musculoskeletal: Range of motion: intact in all extremities. 10:30 Cardiovascular: Denies chest pain, shortness of breath. rb1 10:30 General: Pt. reports tripping on her [employer] bottoms and falling. Denies hitting head, rb1 LOC, chest pain, and shortness of breath.. Historical: - Allergies: 10:35 Cephalexin Monohydrate; rb1 10:35 cyclobenzaprine HCl (Vomiting); rb1 10:35 Keflex (Vomiting); rb1 10:35 Flexeril; rb1 - Home Meds: 10:35 baclofen 10 mg Oral tab 1 tab every 6 hrs PRN for pain [Active]; clonazepam 1 mg Oral rb1 tab at bedtime [Active]; Hydrochlorothiazide Oral [Active]; methadone 10 mg Oral tab 4 times a day PRN for pain [Active]; tiotropium bromide inhalation [Active]; - PMHx: 10:35 Anxiety; CHF; chronic back pain; COPD; Depression; rb1 - PSHx: 10:35 multiple back surgeries; abdomen; rb1 - Immunization history:: Adult Immunizations up to date. - Social history:: Smoking status: Patient uses tobacco products, smokes one-half pack cigarettes per day. - Ebola Screening: : Patient negative for fever greater than or equal to 101.5 degrees Fahrenheit, and additional compatible Ebola Virus Disease symptoms. Screenin:30 Abuse screen: Denies threats or abuse. Nutritional screening: No deficits noted. rb1 Tuberculosis screening: No symptoms or risk factors identified. Fall Risk Fall in past 12 months (25 points). No secondary diagnosis (0 pts). No IV (0 pts). Ambulatory Aid- None/Bed Rest/Nurse Assist (0 pts). Gait- Normal/Bed Rest/Wheelchair (0 pts) Mental Status- Oriented to own ability (0 pts). Total Drummond Fall Scale indicates Low Risk Score (25-44 pts). Fall prevention measures have been instituted. Side Rails Up X 2 Placed close to Nursing Station 1:1 attendant Assigned to Pt. Frequent Obs/Assesments occuring As available Patient and Family Educated on Fall Prevention Program and strategies. Assessment: 10:30 General: See triage assessment. rb1 11:30 Reassessment: Patient appears in no apparent distress at this time. Patient and/or rb1 family updated on plan of care and expected duration. Pain level reassessed. Patient is alert, oriented x 3, equal unlabored respirations, skin warm/dry/pink. 12:30 Reassessment: Patient appears in no apparent distress at this time. No changes from rb1 previously documented assessment. 13:30 Reassessment: Patient appears in no apparent distress at this time. Patient and/or rb1 family updated on plan of care and expected duration. Pain level reassessed. Patient is alert, oriented x 3, equal unlabored respirations, skin warm/dry/pink. pt. c/o pain 8/10. Provider notified. 13:55 Reassessment: Tried to ambulate the pt. but the pt. c/o of pain when bearing weight on rb1 her right leg. The pt is able to stand up and walk but not without discomfort. Provider notified. 14:50 Reassessment: Patient appears in no apparent distress at this time. Patient and/or rb1 family updated on plan of care and expected duration. Pain level reassessed. Patient is alert, oriented x 3, equal unlabored respirations, skin warm/dry/pink. 15:50 Reassessment: Patient appears in no apparent distress at this time. Patient and/or rb1 family updated on plan of care and expected duration. Pain level reassessed. Patient is alert, oriented x 3, equal unlabored respirations, skin warm/dry/pink. [employer] Porter at bedside. Vital Signs: 10:30 BP 112 / 82; Pulse 73; Resp 16; Temp 98.3(O); Pulse Ox 97% on 2 lpm NC; Weight 44.63 kg rb1 (R); Height 5 ft. 5 in. (165.10 cm) (R); Pain 8/10; 11:30 BP 104 / 74; Pulse 75; Resp 17; Pulse Ox 96% on 2 lpm NC; Pain 6/10; rb1 12:30 BP 103 / 67; Pulse 61; Resp 19; Pulse Ox 95% on 2 lpm NC; rb1 13:40 BP 104 / 75; Pulse 74; Resp 18; Pulse Ox 96% on 2 lpm NC; rb1 14:00 BP 109 / 72; Pulse 71; Resp 17; Pulse Ox 97% on 2 lpm NC; rb1 15:00 BP 112 / 78; Pulse 71; Resp 20; Pulse Ox 98% on 2 lpm NC; rb1 15:50 BP 119 / 84; Pulse 68; Resp 18; Pulse Ox 96% on 2 lpm NC; Pain 6/10; rb1 10:30 Body Mass Index 16.37 (44.63 kg, 165.10 cm) rb1 [place] Coma Score: 10:30 Eye Response: spontaneous(4). Verbal Response: oriented(5). Motor Response: obeys rb1 commands(6). Total: 15. Trauma Score (Adult): 10:30 Eye Response: spontaneous(1); Verbal Response: oriented(1); Motor Response: obeys rb1 commands(2); Systolic BP: > 89 mm Hg(4); Respiratory Rate: 10 to 29 per min(4); Rafaela Score: 15; Trauma Score: 12 ED Course: 10:29 Patient arrived in ED. rb1 10:30 Arm band placed on right wrist. rb1 10:30 Patient has correct armband on for positive identification. Bed in low position. Call rb1 light in reach. Side rails up X 1. Pulse ox on. NIBP on. 10:30 Warm blanket given. rb1 10:30 Oxygen administration via nasal cannula \T\ 2L/min. rb1 10:33 Triage completed. rb1 10:38 Ham Padilla PA is PHCP. jmm 10:38 Julio Cesar Arevalo MD is Attending Physician. jmm 13:03 Hip Right 1 View XRAY In Process Unspecified. EDMS 13:03 Pelvis XRAY In Process Unspecified. EDMS 13:08 Sommer Eason, RN is Primary Nurse. rb1 14:[address] via stretcher. sj 14:34 CT completed. Patient tolerated procedure well. Patient moved back from CT. vm2 14:35 CT Pelvis wo Cont In Process Unspecified. EDMS 15:50 No provider procedures requiring assistance completed. Patient did not have IV access rb1 during this emergency room visit. Administered Medications: 10:54 Drug: [place] 5 mg-325 mg 1 tabs Route: PO; rb1 11:30 Follow up: Response: No adverse reaction; Pain is decreased rb1 15:00 Drug: Zofran 4 mg Route: PO; rb1 15:30 Follow up: Response: No adverse reaction rb1 15:00 Drug: morphine 4 mg Route: IM; Site: left deltoid; rb1 15:15 Follow up: Response: No adverse reaction; Pain is decreased rb1 15:01 Not Given (provider changed order to IM): morphine 4 mg IVP once rb1 15:02 Not Given (Provider changed order to Sublingual): Zofran 4 mg IVP once; over 2 minutes rb1 Outcome: 15:20 Discharge ordered by MD. nance 15:50 Patient left the ED. rb1 15:50 Discharged to home via wheelchair, with executive vice president and chief operating officer rb1 15:50 Condition: stable 15:50 Discharge instructions given to patient, Instructed on discharge instructions, follow up and referral plans. medication usage, Demonstrated understanding of instructions, follow-up care, medications, Prescriptions given X 1. Signatures: Dispatcher [employer] EDMS Ham Padilla PA PA jmm Jones, Susan sj Barber, Rebecca, RN RN rb1 Daisha Fox 2 Corrections: (The following items were deleted from the chart) 16:12 16:00 Patient left the ED. rb1 rb1
--- NOTE | 2018-05-01 15:23 | EDPHYS ---
Physician Documentation [facility] Name: Alee Humphrey Age: 63 yrs Sex: Female : 1955 Arrival Date: 05/01/2018 Time: 10:29 Bed 16 Private MD: ED Physician Julio Cesar Arevalo HPI: 05/01 10:44 This 63 yrs old Female presents to ER via EMS with complaints of Fall Injury. jmm 10:44 Details of fall: The patient fell from an upright position, while walking. Onset: The [facility] symptoms/episode began/occurred acutely, just prior to arrival. Patient complains of right hip pain after tripping on her paXVionics bottom. Patient denies head injury, denies chest pain, denies weakness, denies shortness of breath. . Historical: - Allergies: 10:35 Cephalexin Monohydrate; rb1 10:35 cyclobenzaprine HCl (Vomiting); rb1 10:35 Keflex (Vomiting); rb1 10:35 Flexeril; rb1 - Home Meds: 10:35 baclofen 10 mg Oral tab 1 tab every 6 hrs PRN for pain [Active]; clonazepam 1 mg Oral rb1 tab at bedtime [Active]; Hydrochlorothiazide Oral [Active]; methadone 10 mg Oral tab 4 times a day PRN for pain [Active]; tiotropium bromide inhalation [Active]; - PMHx: 10:35 Anxiety; CHF; chronic back pain; COPD; Depression; rb1 - PSHx: 10:35 multiple back surgeries; abdomen; rb1 - Immunization history:: Adult Immunizations up to date. - Social history:: Smoking status: Patient uses tobacco products, smokes one-half pack cigarettes per day. - Ebola Screening: : Patient negative for fever greater than or equal to 101.5 degrees Fahrenheit, and additional compatible Ebola Virus Disease symptoms. ROS: 10:44 Constitutional: Negative for fever, chills, and weight loss, Cardiovascular: Negative jmm for chest pain, palpitations, and edema, Respiratory: Negative for shortness of breath, cough, wheezing, and pleuritic chest pain. 10:44 MS/extremity: Positive for injury or acute deformity, pain. 10:44 All other systems are negative. Exam: 10:44 Constitutional: This is a well developed, well nourished patient who is awake, alert, jmm and in no acute distress. Head/Face: atraumatic. Eyes: EOMI, no conjunctival erythema appreciated ENT: Moist Mucus Membranes Neck: Trachea midline, Supple Chest/axilla: Normal chest wall appearance and motion. Cardiovascular: Regular rate and rhythm. No edema appreciated Respiratory: Normal respirations, no respiratory distress appreciated Abdomen/GI: Non distended, soft 10:44 Musculoskeletal/extremity: right lateral hip is tender to palpation, painful flexion noted, compartments are soft, NVI. 10:44 Skin: Appearance: Color: normal in color. 10:44 Neuro: Orientation: is normal, Mentation: is normal, Memory: is normal. 10:44 Psych: Behavior/mood is pleasant, cooperative. Vital Signs: 10:30 BP 112 / 82; Pulse 73; Resp 16; Temp 98.3(O); Pulse Ox 97% on 2 lpm NC; Weight 44.63 kg rb1 (R); Height 5 ft. 5 in. (165.10 cm) (R); Pain 8/10; 11:30 BP 104 / 74; Pulse 75; Resp 17; Pulse Ox 96% on 2 lpm NC; Pain 6/10; rb1 12:30 BP 103 / 67; Pulse 61; Resp 19; Pulse Ox 95% on 2 lpm NC; rb1 13:40 BP 104 / 75; Pulse 74; Resp 18; Pulse Ox 96% on 2 lpm NC; rb1 14:00 BP 109 / 72; Pulse 71; Resp 17; Pulse Ox 97% on 2 lpm NC; rb1 15:00 BP 112 / 78; Pulse 71; Resp 20; Pulse Ox 98% on 2 lpm NC; rb1 15:50 BP 119 / 84; Pulse 68; Resp 18; Pulse Ox 96% on 2 lpm NC; Pain 6/10; rb1 10:30 Body Mass Index 16.37 (44.63 kg, 165.10 cm) rb1 Rafaela Coma Score: 10:30 Eye Response: spontaneous(4). Verbal Response: oriented(5). Motor Response: obeys rb1 commands(6). Total: 15. Trauma Score (Adult): 10:30 Eye Response: spontaneous(1); Verbal Response: oriented(1); Motor Response: obeys rb1 commands(2); Systolic BP: > 89 mm Hg(4); Respiratory Rate: 10 to 29 per min(4); [place] Score: 15; Trauma Score: 12 MDM: 10:44 Patient medically screened. [facility] 15:16 Data reviewed: vital signs, nurses notes. Counseling: I had a detailed discussion with [facility] the patient and/or guardian regarding: the historical points, exam findings, and any diagnostic results supporting the discharge/admit diagnosis, radiology results, the need for outpatient follow up, to return to the emergency department if symptoms worsen or persist or if there are any questions or concerns that arise at home. ED course: I discussed CT imaging findings with Dr. browne whom recommended touch down weight bearing with orthopedics follow up. I discussed this with the patient whom has a walker and will follow up with her orthopedic surgeon outpatient. . 05/01 10:45 Order name: Hip Right 1 View XRAY; Complete Time: 13:35 [facility] 05/01 10:45 Order name: Pelvis XRAY; Complete Time: 15:11 [facility] 05/01 13:55 Order name: CT Pelvis wo Cont; Complete Time: 14:48 [facility] 05/01 13:36 Order name: Misc. Order: ambulate patient; Complete Time: 13:54 [facility] Administered Medications: 10:54 Drug: [place] 5 mg-325 mg 1 tabs Route: PO; rb1 11:30 Follow up: Response: No adverse reaction; Pain is decreased rb1 15:00 Drug: Zofran 4 mg Route: PO; rb1 15:30 Follow up: Response: No adverse reaction rb1 15:00 Drug: morphine 4 mg Route: IM; Site: left deltoid; rb1 15:15 Follow up: Response: No adverse reaction; Pain is decreased rb1 15:01 Not Given (provider changed order to IM): morphine 4 mg IVP once rb1 15:02 Not Given (Provider changed order to Sublingual): Zofran 4 mg IVP once; over 2 minutes rb1 Disposition: 05/01/18 15:20 Discharged to Home. Impression: Nondisplaced fracture of greater trochanter of right femur. - Condition is Stable. - Prescriptions for Tylenol- Codeine #3 300-30 mg Oral Tablet - take 1 tablet by ORAL route every 6 hours As needed; 20 tablet. - Medication Reconciliation Form, Thank You Letter, Antibiotic Education, Prescription Opioid Use form. - Follow up: Private Physician; When: 2 - 3 days; Reason: Recheck today's complaints, Continuance of care, Re-evaluation by your physician. Addendum: 05/03/2018 21:01 Co-signature as Attending Physician, Julio Cesar Arevalo MD. g s Signatures: Dispatcher [employer] EDHam Barrientos PA PA jmm Barber, Rebecca, RN RN rb1 Julio Cesar Arevalo MD MD Corrections: (The following items were deleted from the chart) 05/01 15:14 13:58 IV Saline Lock ordered. goyo rb1 16:00 15:20 05/01/2018 15:20 Discharged to Home. Impression: Nondisplaced fracture of greater rb1 trochanter of right femur. Condition is Stable. Forms are Medication Reconciliation Form, Thank You Letter, Antibiotic Education, Prescription Opioid Use. Follow up: Private Physician; When: 2 - 3 days; Reason: Recheck today's complaints, Continuance of care, Re-evaluation by your physician. goyo
[2018-05-01 16:08] VITALS: TEMP 98.3
[2018-05-01 16:14] VITALS: BP 109/72; O2SAT 97
== END 2018-05-01 16:00 | disposition home or self-care (01) ==
LOC: ER 10:20
DX: S72.114A Nondisplaced fracture of greater trochanter of right femur, initial encounter for closed fracture (principal); W01.0XXA Fall on same level from slipping, tripping and stumbling without subsequent striking against object, initial encounter; Y93.01 Activity, walking, marching and hiking; F41.9 Anxiety disorder, unspecified; I50.9 Heart failure, unspecified; J44.9 Chronic obstructive pulmonary disease, unspecified; F32.9 Major depressive disorder, single episode, unspecified
CPT/HCPCS: 72170; 72192; 96372; 99285; J2405

== ENCOUNTER 2018-06-03 08:34 | Emergency (ER) | payer OTHER ==
--- OUTSIDE RECORDS SUMMARY | 2018-06-03 08:36 | XMS REPORT | Clinical Summary ---
:1955 Author Organization [facility] Address [address] [place] [address] Care Team Providers Name Role Phone Manuel [...] Not on file Results Not on fileafter 06/02/2017 Insurance Payer Benefit Plan / Group Subscriber ID Type Phone Address MEDICARE MEDICARE A B xxxxxxxxxx Medicare MEDICAID MEDICAID [facility] xxxxxxxxx Medicaid Advance Directives For more information, please contact:[place] [id number] [place], [place] [phone] Code Status Date Activated Date Inactivated Comments Full Code 02/04/2017 6:02 PM 02/18/2017 1:43 AM This code status was determined by: Patient
--- OUTSIDE RECORDS SUMMARY | 2018-06-03 08:39 | XMS REPORT ---
:1955 [facility] Wiliam Gotti [address] [place] [id number] Care Team Providers Name Role Phone LYNN [...] (BEAKER) (test 175 mg/dL 70-110 TESTED AT [facility] [address] [place] [address] zrim=6852) [facility] [address] POCT-GLUCOSE [id number] 08:27:00 Test Item Value Reference Range Comments POC-GLUCOSE METER (BEAKER) 83 mg/dL 70-110 TESTED AT [address] (test uhgc=4785) [facility] [address] CBC W/PLT COUNT & AUTO [id number] 07:16:00 Test Item Value Reference Range Comments WHITE BLOOD CELL COUNT (BEAKER) (test lbto=168) 17.1 K/ L 3.5-10.5 RED BLOOD CELL COUNT (BEAKER) (test zkya=600) 3.96 M/ L 3.93-5.22 HEMOGLOBIN (BEAKER) (test ehra=541) 10.7 GM/DL 11.2-15.7 HEMATOCRIT (BEAKER) (test kojo=357) 34.8 % 34.1-44.9 MEAN CORPUSCULAR VOLUME (BEAKER) (test gdqz=079) 87.9 fL 79.4-94.8 MEAN CORPUSCULAR HEMOGLOBIN (BEAKER) (test 27.0 pg 25.6-32.2 tvzb=750) MEAN CORPUSCULAR HEMOGLOBIN CONC (BEAKER) (test 30.7 GM/DL 32.2-35.5 tsga=769) RED CELL DISTRIBUTION WIDTH (BEAKER) (test 15.6 % 11.7-14.4 vxha=705) PLATELET COUNT (BEAKER) (test zlpq=151) 334 K/CU MM 150-450 MEAN PLATELET VOLUME (BEAKER) (test qygv=676) 11.1 fL 9.4-12.3 NUCLEATED RED BLOOD CELLS (BEAKER) (test 0 /100 WBC 0-0 rdpb=880) NEUTROPHILS RELATIVE PERCENT (BEAKER) (test 84 % lgvg=683) LYMPHOCYTES RELATIVE PERCENT (BEAKER) (test 8 % otiu=996) MONOCYTES RELATIVE PERCENT (BEAKER) (test 7 % poks=980) EOSINOPHILS RELATIVE PERCENT (BEAKER) (test 0 % bbdu=292) BASOPHILS RELATIVE PERCENT (BEAKER) (test 0 % xfnh=210) NEUTROPHILS ABSOLUTE COUNT (BEAKER) (test 14.26 K/ L 1.56-6.13 oaqq=468) LYMPHOCYTES ABSOLUTE COUNT (BEAKER) (test 1.43 K/ L 1.18-3.74 fqkt=569) MONOCYTES ABSOLUTE COUNT (BEAKER) (test 1.10 K/ L 0.24-0.36 afea=858) EOSINOPHILS ABSOLUTE COUNT (BEAKER) (test 0.05 K/ L 0.04-0.36 dbej=547) BASOPHILS ABSOLUTE COUNT (BEAKER) (test 0.01 K/ L 0.01-0.08 xvni=916) IMMATURE GRANULOCYTES-RELATIVE PERCENT (BEAKER) 1 % 0-1 (test etyh=0659) [id number] 07:00:00 Test Item Value Reference Range Comments MAGNESIUM (BEAKER) (test phad=538) 2.2 mg/dL 1.6-2.6 BASIC METABOLIC [id number] 07:00:00 Test Item Value Reference Range Comments SODIUM (BEAKER) (test 133 meq/L 136-145 brfm=129) POTASSIUM (BEAKER) (test 4.3 meq/L 3.5-5.1 ufop=448) CHLORIDE (BEAKER) (test 91 meq/L 98-107 krwz=149) CO2 (BEAKER) (test 34 meq/L 22-29 iuce=870) BLOOD UREA NITROGEN 19 mg/dL 7-21 (BEAKER) (test osyh=918) CREATININE (BEAKER) (test 0.61 mg/dL 0.57-1.25 pnjk=023) GLUCOSE RANDOM (BEAKER) 61 mg/dL 70-105 (test ezfd=283) CALCIUM (BEAKER) (test 8.9 mg/dL 8.4-10.2 ydus=062) EGFR (BEAKER) (test 100 mL/min/1.73 sq m ESTIMATED GFR IS NOT baxq=9021) ACCURATE CREATININE CLEARANCE IN PREDICTING GLOMERULAR FILTRATION RATE. ESTIMATED GFR IS NOT APPLICABLE FOR DIALYSIS PATIENTS. POCT-GLUCOSE [id number] 20:42:00 Test Item Value Reference Range Comments POC-GLUCOSE METER (BEAKER) 183 mg/dL 70-110 TESTED AT [address] (test brms=2422) [facility] [address] POCT-GLUCOSE [id number] 11:38:00 Test Item Value Reference Range Comments POC-GLUCOSE METER (BEAKER) 130 mg/dL 70-110 TESTED AT [address] (test roac=8670) [place] [id number] POCT-GLUCOSE [id number] 08:08:00 Test Item Value Reference Range Comments POC-GLUCOSE METER (BEAKER) 67 mg/dL 70-110 Will Repeat Test/TESTED AT (test hoas=2114) [address] [address] [id number] 06:51:00 Test Item Value Reference Range Comments MAGNESIUM (BEAKER) (test uhlo=804) 2.0 mg/dL 1.6-2.6 BASIC METABOLIC [id number] 06:51:00 Test Item Value Reference Range Comments SODIUM (BEAKER) (test 134 meq/L 136-145 gxxy=023) POTASSIUM (BEAKER) (test 4.4 meq/L 3.5-5.1 qtfl=647) CHLORIDE (BEAKER) (test 92 meq/L 98-107 mmiz=613) CO2 (BEAKER) (test 34 meq/L 22-29 fbqn=187) BLOOD UREA NITROGEN 17 mg/dL 7-21 (BEAKER) (test yfmu=966) CREATININE (BEAKER) (test 0.56 mg/dL 0.57-1.25 mcot=612) GLUCOSE RANDOM (BEAKER) 66 mg/dL 70-105 (test oqlv=266) CALCIUM (BEAKER) (test 8.8 mg/dL 8.4-10.2 qioc=500) EGFR (BEAKER) (test 110 mL/min/1.73 sq m ESTIMATED GFR IS NOT zxun=6294) ACCURATE CREATININE CLEARANCE IN PREDICTING GLOMERULAR FILTRATION RATE. ESTIMATED GFR IS NOT APPLICABLE FOR DIALYSIS PATIENTS. CBC W/PLT COUNT & AUTO [id number] 06:00:00 Test Item Value Reference Range Comments WHITE BLOOD CELL COUNT (BEAKER) (test mkua=677) 17.0 K/ L 3.5-10.5 RED BLOOD CELL COUNT (BEAKER) (test fnec=536) 4.16 M/ L 3.93-5.22 HEMOGLOBIN (BEAKER) (test owgr=932) 11.1 GM/DL 11.2-15.7 HEMATOCRIT (BEAKER) (test myyc=348) 36.3 % 34.1-44.9 MEAN CORPUSCULAR VOLUME (BEAKER) (test sfqp=114) 87.3 fL 79.4-94.8 MEAN CORPUSCULAR HEMOGLOBIN (BEAKER) (test 26.7 pg 25.6-32.2 smvf=541) MEAN CORPUSCULAR HEMOGLOBIN CONC (BEAKER) (test 30.6 GM/DL 32.2-35.5 lvks=239) RED CELL DISTRIBUTION WIDTH (BEAKER) (test 15.6 % 11.7-14.4 zhoo=551) PLATELET COUNT (BEAKER) (test dble=933) 293 K/CU MM 150-450 MEAN PLATELET VOLUME (BEAKER) (test lwdx=088) 11.7 fL 9.4-12.3 NUCLEATED RED BLOOD CELLS (BEAKER) (test 0 /100 WBC 0-0 uydz=455) NEUTROPHILS RELATIVE PERCENT (BEAKER) (test 81 % wohk=787) LYMPHOCYTES RELATIVE PERCENT (BEAKER) (test 9 % oart=972) MONOCYTES RELATIVE PERCENT (BEAKER) (test 8 % nvoi=109) EOSINOPHILS RELATIVE PERCENT (BEAKER) (test 1 % mlqe=958) BASOPHILS RELATIVE PERCENT (BEAKER) (test 0 % pfre=971) NEUTROPHILS ABSOLUTE COUNT (BEAKER) (test 13.77 K/ L 1.56-6.13 xkyr=032) LYMPHOCYTES ABSOLUTE COUNT (BEAKER) (test 1.51 K/ L 1.18-3.74 klap=315) MONOCYTES ABSOLUTE COUNT (BEAKER) (test 1.35 K/ L 0.24-0.36 idxg=472) EOSINOPHILS ABSOLUTE COUNT (BEAKER) (test 0.08 K/ L 0.04-0.36 bsym=748) BASOPHILS ABSOLUTE COUNT (BEAKER) (test 0.04 K/ L 0.01-0.08 ovtq=077) IMMATURE GRANULOCYTES-RELATIVE PERCENT (BEAKER) 1 % 0-1 (test qfeg=7295) POCT-GLUCOSE [id number] 21:21:00 Test Item Value Reference Range Comments POC-GLUCOSE METER (BEAKER) 177 mg/dL 70-110 TESTED AT [address] (test zusp=4173) [facility] [address] POCT-GLUCOSE [id number] 17:52:00 Test Item Value Reference Range Comments POC-GLUCOSE METER (BEAKER) 191 mg/dL 70-110 TESTED AT [address] (test uitr=3471) [facility] [address] POCT-GLUCOSE [id number] 11:46:00 Test Item Value Reference Range Comments POC-GLUCOSE METER (BEAKER) 145 mg/dL 70-110 TESTED AT [address] (test radc=3538) [facility] [address] POCT-GLUCOSE [id number] 07:59:00 Test Item Value Reference Range Comments POC-GLUCOSE METER (BEAKER) 89 mg/dL 70-110 TESTED AT [address] (test hadq=7562) [facility] [address] [id number] 04:29:00 Test Item Value Reference Range Comments MAGNESIUM (BEAKER) (test pswx=578) 2.1 mg/dL 1.6-2.6 BASIC METABOLIC [id number] 04:29:00 Test Item Value Reference Range Comments SODIUM (BEAKER) (test 134 meq/L 136-145 mxpj=541) POTASSIUM (BEAKER) (test 4.7 meq/L 3.5-5.1 lbcj=610) CHLORIDE (BEAKER) (test 91 meq/L 98-107 yonr=859) CO2 (BEAKER) (test 36 meq/L 22-29 fbmz=554) BLOOD UREA NITROGEN 14 mg/dL 7-21 (BEAKER) (test tmip=697) CREATININE (BEAKER) (test 0.56 mg/dL 0.57-1.25 tkep=526) GLUCOSE RANDOM (BEAKER) 138 mg/dL 70-105 (test tykw=877) CALCIUM (BEAKER) (test 8.3 mg/dL 8.4-10.2 fhtd=393) EGFR (BEAKER) (test 110 mL/min/1.73 sq m ESTIMATED GFR IS NOT bleq=0485) ACCURATE CREATININE CLEARANCE IN PREDICTING GLOMERULAR FILTRATION RATE. ESTIMATED GFR IS NOT APPLICABLE FOR DIALYSIS PATIENTS. CBC W/PLT COUNT & AUTO [id number] 04:18:00 Test Item Value Reference Range Comments WHITE BLOOD CELL COUNT (BEAKER) (test iyui=367) 14.1 K/ L 3.5-10.5 RED BLOOD CELL COUNT (BEAKER) (test wsiy=100) 4.06 M/ L 3.93-5.22 HEMOGLOBIN (BEAKER) (test yibg=716) 11.1 GM/DL 11.2-15.7 HEMATOCRIT (BEAKER) (test ynnu=765) 35.9 % 34.1-44.9 MEAN CORPUSCULAR VOLUME (BEAKER) (test ofwx=850) 88.4 fL 79.4-94.8 MEAN CORPUSCULAR HEMOGLOBIN (BEAKER) (test 27.3 pg 25.6-32.2 uozr=118) MEAN CORPUSCULAR HEMOGLOBIN CONC (BEAKER) (test 30.9 GM/DL 32.2-35.5 nhjg=155) RED CELL DISTRIBUTION WIDTH (BEAKER) (test 15.5 % 11.7-14.4 ancf=478) PLATELET COUNT (BEAKER) (test vkfb=182) 309 K/CU MM 150-450 MEAN PLATELET VOLUME (BEAKER) (test cxyw=295) 10.7 fL 9.4-12.3 NUCLEATED RED BLOOD CELLS (BEAKER) (test 0 /100 WBC 0-0 hnue=864) NEUTROPHILS RELATIVE PERCENT (BEAKER) (test 89 % ujxq=711) LYMPHOCYTES RELATIVE PERCENT (BEAKER) (test 5 % aepj=733) MONOCYTES RELATIVE PERCENT (BEAKER) (test 5 % urdk=977) EOSINOPHILS RELATIVE PERCENT (BEAKER) (test 0 % albu=468) BASOPHILS RELATIVE PERCENT (BEAKER) (test 0 % rbbe=855) NEUTROPHILS ABSOLUTE COUNT (BEAKER) (test 12.50 K/ L 1.56-6.13 zlpg=644) LYMPHOCYTES ABSOLUTE COUNT (BEAKER) (test 0.68 K/ L 1.18-3.74 ozyw=046) MONOCYTES ABSOLUTE COUNT (BEAKER) (test 0.74 K/ L 0.24-0.36 gcyr=824) EOSINOPHILS ABSOLUTE COUNT (BEAKER) (test 0.00 K/ L 0.04-0.36 snoh=268) BASOPHILS ABSOLUTE COUNT (BEAKER) (test 0.01 K/ L 0.01-0.08 gkss=293) IMMATURE GRANULOCYTES-RELATIVE PERCENT (BEAKER) 1 % 0-1 (test tfkl=7524) POCT-GLUCOSE [id number] 21:24:00 Test Item Value Reference Range Comments POC-GLUCOSE METER (BEAKER) 257 mg/dL 70-110 TESTED AT [address] (test wjrq=5245) [place] [address] POCT-GLUCOSE [id number] 17:18:00 Test Item Value Reference Range Comments POC-GLUCOSE METER (BEAKER) 171 mg/dL 70-110 TESTED AT [address] (test yamj=0683) [place] [id number] POCT-GLUCOSE [id number] 12:43:00 Test Item Value Reference Range Comments POC-GLUCOSE METER (BEAKER) 178 mg/dL 70-110 TESTED AT [address] (test vazm=3000) [place] [id number] CBC W/PLT COUNT & AUTO [id number] 09:33:00 Test Item Value Reference Range Comments WHITE BLOOD CELL COUNT (BEAKER) (test zrax=423) 15.2 K/ L 3.5-10.5 RED BLOOD CELL COUNT (BEAKER) (test xqjr=228) 4.36 M/ L 3.93-5.22 HEMOGLOBIN (BEAKER) (test zees=946) 11.8 GM/DL 11.2-15.7 HEMATOCRIT (BEAKER) (test xduv=208) 37.6 % 34.1-44.9 MEAN CORPUSCULAR VOLUME (BEAKER) (test vnqr=244) 86.2 fL 79.4-94.8 MEAN CORPUSCULAR HEMOGLOBIN (BEAKER) (test 27.1 pg 25.6-32.2 djzs=387) MEAN CORPUSCULAR HEMOGLOBIN CONC (BEAKER) (test 31.4 GM/DL 32.2-35.5 cltq=438) RED CELL DISTRIBUTION WIDTH (BEAKER) (test 15.6 % 11.7-14.4 zqmc=800) PLATELET COUNT (BEAKER) (test zasm=308) 289 K/CU MM 150-450 MEAN PLATELET VOLUME (BEAKER) (test wnuj=566) 12.1 fL 9.4-12.3 NUCLEATED RED BLOOD CELLS (BEAKER) (test 0 /100 WBC 0-0 qher=327) NEUTROPHILS RELATIVE PERCENT (BEAKER) (test 78 % ydes=627) LYMPHOCYTES RELATIVE PERCENT (BEAKER) (test 10 % jazp=192) MONOCYTES RELATIVE PERCENT (BEAKER) (test 10 % imeh=893) EOSINOPHILS RELATIVE PERCENT (BEAKER) (test 1 % qayj=124) BASOPHILS RELATIVE PERCENT (BEAKER) (test 0 % qesx=046) NEUTROPHILS ABSOLUTE COUNT (BEAKER) (test 11.75 K/ L 1.56-6.13 eqdp=509) LYMPHOCYTES ABSOLUTE COUNT (BEAKER) (test 1.54 K/ L 1.18-3.74 hrbf=319) MONOCYTES ABSOLUTE COUNT (BEAKER) (test 1.56 K/ L 0.24-0.36 uhon=959) EOSINOPHILS ABSOLUTE COUNT (BEAKER) (test 0.08 K/ L 0.04-0.36 wbig=996) BASOPHILS ABSOLUTE COUNT (BEAKER) (test 0.03 K/ L 0.01-0.08 sfsc=036) IMMATURE GRANULOCYTES-RELATIVE PERCENT (BEAKER) 1 % 0-1 (test oige=4917) POCT-GLUCOSE [id number] 07:00:00 Test Item Value Reference Range Comments POC-GLUCOSE METER (BEAKER) 101 mg/dL 70-110 TESTED AT [facility] [address] [facility] (test qppb=0788) [facility] [address] [id number] 05:09:00 Test Item Value Reference Range Comments MAGNESIUM (BEAKER) (test 2.3 mg/dL 1.6-2.6 Specimen slightly hemolyzed kgcu=024) BASIC METABOLIC [id number] 05:09:00 Test Item Value Reference Range Comments SODIUM (BEAKER) (test 134 meq/L 136-145 cklw=973) POTASSIUM (BEAKER) (test 5.1 meq/L 3.5-5.1 Specimen slightly tbxt=290) hemolyzed CHLORIDE (BEAKER) (test 96 meq/L 98-107 vrwy=079) CO2 (BEAKER) (test 33 meq/L 22-29 uugq=534) BLOOD UREA NITROGEN 13 mg/dL 7-21 (BEAKER) (test pcvs=474) CREATININE (BEAKER) (test 0.48 mg/dL 0.57-1.25 Specimen slightly gnti=219) hemolyzed GLUCOSE RANDOM (BEAKER) 73 mg/dL 70-105 (test qyzz=730) CALCIUM (BEAKER) (test 8.3 mg/dL 8.4-10.2 zyhl=567) EGFR (BEAKER) (test 131 mL/min/1.73 sq m ESTIMATED GFR IS NOT ssbg=8327) ACCURATE CREATININE CLEARANCE IN PREDICTING GLOMERULAR FILTRATION RATE. ESTIMATED GFR IS NOT APPLICABLE FOR DIALYSIS PATIENTS. POCT-GLUCOSE [id number] 21:25:00 Test Item Value Reference Range Comments POC-GLUCOSE METER (BEAKER) 334 mg/dL 70-110 Will Repeat Test/TESTED AT (test dvqg=7161) [address] [address] BLOOD GAS, [id number] 12:45:00 Test Item Value Reference Range Comments PH ARTERIAL (BEAKER) (test mlxn=512) 7.47 7.35-7.45 PCO2 ARTERIAL (BEAKER) (test jrfv=000) 60 mmHg 35-45 PO2 ARTERIAL (BEAKER) (test zmqi=692) 79 mmHg 80-90 O2 SATURATION ARTERIAL (BEAKER) (test welc=920) 96.2 % 96.0-97.0 HCO3 ARTERIAL (BEAKER) (test bgej=157) 42 mmol/L 21-29 BASE EXCESS ARTERIAL (BEAKER) (test vrge=696) 15.6 mmol/L -2.0-3.0 PATIENT TEMPERATURE (BEAKER) (test mati=7518) 36.7 C FIO2 (BEAKER) (test qbtn=4923) 32.0 % POCT-GLUCOSE [id number] 11:48:00 Test Item Value Reference Range Comments POC-GLUCOSE METER (BEAKER) 140 mg/dL 70-110 TESTED AT [address] (test obxz=3439) [facility] [address] BASIC METABOLIC [id number] 09:02:00 Test Item Value Reference Range Comments SODIUM (BEAKER) (test 135 meq/L 136-145 xtzm=416) POTASSIUM (BEAKER) (test 3.4 meq/L 3.5-5.1 jbiv=052) CHLORIDE (BEAKER) (test 89 meq/L 98-107 zlaj=187) CO2 (BEAKER) (test 43 meq/L 22-29 hjhl=713) BLOOD UREA NITROGEN 15 mg/dL 7-21 (BEAKER) (test iufb=676) CREATININE (BEAKER) (test 0.48 mg/dL 0.57-1.25 zznr=757) GLUCOSE RANDOM (BEAKER) 77 mg/dL 70-105 (test xkce=714) CALCIUM (BEAKER) (test 8.1 mg/dL 8.4-10.2 kbts=376) EGFR (BEAKER) (test 131 mL/min/1.73 sq m ESTIMATED GFR IS NOT izcz=1571) ACCURATE CREATININE CLEARANCE IN PREDICTING GLOMERULAR FILTRATION RATE. ESTIMATED GFR IS NOT APPLICABLE FOR DIALYSIS PATIENTS. POCT-GLUCOSE [id number] 06:50:00 Test Item Value Reference Range Comments POC-GLUCOSE METER (BEAKER) 92 mg/dL 70-110 TESTED AT [facility] [address] [facility] (test dttz=3417) [facility] [address] CBC W/PLT COUNT & AUTO [id number] 04:12:00 Test Item Value Reference Range Comments WHITE BLOOD CELL COUNT (BEAKER) (test gwpw=776) 11.7 K/ L 3.5-10.5 RED BLOOD CELL COUNT (BEAKER) (test htzu=727) 3.67 M/ L 3.93-5.22 HEMOGLOBIN (BEAKER) (test ccov=146) 9.9 GM/DL 11.2-15.7 HEMATOCRIT (BEAKER) (test cwah=373) 32.5 % 34.1-44.9 MEAN CORPUSCULAR VOLUME (BEAKER) (test eexh=179) 88.6 fL 79.4-94.8 MEAN CORPUSCULAR HEMOGLOBIN (BEAKER) (test 27.0 pg 25.6-32.2 jcbs=000) MEAN CORPUSCULAR HEMOGLOBIN CONC (BEAKER) (test 30.5 GM/DL 32.2-35.5 jafy=376) RED CELL DISTRIBUTION WIDTH (BEAKER) (test 15.2 % 11.7-14.4 onyq=161) PLATELET COUNT (BEAKER) (test qrqz=702) 263 K/CU MM 150-450 MEAN PLATELET VOLUME (BEAKER) (test qwwe=662) 10.4 fL 9.4-12.3 NUCLEATED RED BLOOD CELLS (BEAKER) (test 0 /100 WBC 0-0 pyiu=505) NEUTROPHILS RELATIVE PERCENT (BEAKER) (test 78 % hhfi=456) LYMPHOCYTES RELATIVE PERCENT (BEAKER) (test 11 % afod=292) MONOCYTES RELATIVE PERCENT (BEAKER) (test 10 % ibjt=751) EOSINOPHILS RELATIVE PERCENT (BEAKER) (test 0 % qhsm=221) BASOPHILS RELATIVE PERCENT (BEAKER) (test 0 % lfms=258) NEUTROPHILS ABSOLUTE COUNT (BEAKER) (test 9.19 K/ L 1.56-6.13 eizv=885) LYMPHOCYTES ABSOLUTE COUNT (BEAKER) (test 1.26 K/ L 1.18-3.74 zazv=081) MONOCYTES ABSOLUTE COUNT (BEAKER) (test 1.15 K/ L 0.24-0.36 orlp=684) EOSINOPHILS ABSOLUTE COUNT (BEAKER) (test 0.02 K/ L 0.04-0.36 oogk=608) BASOPHILS ABSOLUTE COUNT (BEAKER) (test 0.01 K/ L 0.01-0.08 hxtt=100) IMMATURE GRANULOCYTES-RELATIVE PERCENT (BEAKER) 1 % 0-1 (test ssfg=9559) POCT-GLUCOSE [id number] 21:22:00 Test Item Value Reference Range Comments POC-GLUCOSE METER (BEAKER) 198 mg/dL 70-110 TESTED AT [address] (test kbnl=4720) [place] [address] POCT-GLUCOSE [id number] 16:57:00 Test Item Value Reference Range Comments POC-GLUCOSE METER (BEAKER) 297 mg/dL 70-110 TESTED AT [facility] [address] [facility] (test ofld=1545) [place] [id number] SPUTUM CULTURE + GRAM [id number] 13:17:00 Test Item Value Reference Range Comments CULTURE (BEAKER) (test 4+ Normal respiratory paul rsgz=0091) present GRAM STAIN RESULT (BEAKER) 2+ WBCs (test tton=9778) GRAM STAIN RESULT (BEAKER) 0-5 epithelial cells (test khos=04628) GRAM STAIN RESULT (BEAKER) 4+ gram negative rods (test ervc=63595) GRAM STAIN RESULT (BEAKER) 4+ gram positive cocci in (test hyyc=883526) clusters GRAM STAIN RESULT (BEAKER) 1+ yeast with pseudohyphae (test zeuv=057515) CBC W/PLT COUNT & AUTO [id number] 12:07:00 Test Item Value Reference Range Comments WHITE BLOOD CELL COUNT (BEAKER) (test xiti=443) 16.8 K/ L 3.5-10.5 RED BLOOD CELL COUNT (BEAKER) (test lsiu=194) 4.39 M/ L 3.93-5.22 HEMOGLOBIN (BEAKER) (test soxm=815) 12.0 GM/DL 11.2-15.7 HEMATOCRIT (BEAKER) (test fthz=202) 39.3 % 34.1-44.9 MEAN CORPUSCULAR VOLUME (BEAKER) (test ktrj=666) 89.5 fL 79.4-94.8 MEAN CORPUSCULAR HEMOGLOBIN (BEAKER) (test 27.3 pg 25.6-32.2 nyhs=011) MEAN CORPUSCULAR HEMOGLOBIN CONC (BEAKER) (test 30.5 GM/DL 32.2-35.5 kvmd=876) RED CELL DISTRIBUTION WIDTH (BEAKER) (test 15.3 % 11.7-14.4 nqdf=907) PLATELET COUNT (BEAKER) (test rocb=058) 312 K/CU MM 150-450 MEAN PLATELET VOLUME (BEAKER) (test qflc=904) 10.9 fL 9.4-12.3 NUCLEATED RED BLOOD CELLS (BEAKER) (test 0 /100 WBC 0-0 dwkq=047) NEUTROPHILS RELATIVE PERCENT (BEAKER) (test 89 % ooki=784) LYMPHOCYTES RELATIVE PERCENT (BEAKER) (test 3 % pxxc=676) MONOCYTES RELATIVE PERCENT (BEAKER) (test 7 % nicj=080) EOSINOPHILS RELATIVE PERCENT (BEAKER) (test 0 % fvfr=875) BASOPHILS RELATIVE PERCENT (BEAKER) (test 0 % qtod=199) NEUTROPHILS ABSOLUTE COUNT (BEAKER) (test 15.01 K/ L 1.56-6.13 qxkx=198) LYMPHOCYTES ABSOLUTE COUNT (BEAKER) (test 0.56 K/ L 1.18-3.74 tjbm=554) MONOCYTES ABSOLUTE COUNT (BEAKER) (test 1.11 K/ L 0.24-0.36 vnxt=209) EOSINOPHILS ABSOLUTE COUNT (BEAKER) (test 0.00 K/ L 0.04-0.36 rymp=944) BASOPHILS ABSOLUTE COUNT (BEAKER) (test 0.02 K/ L 0.01-0.08 waog=787) IMMATURE GRANULOCYTES-RELATIVE PERCENT (BEAKER) 1 % 0-1 (test ahts=0587) POCT-GLUCOSE [id number] 11:54:00 Test Item Value Reference Range Comments POC-GLUCOSE METER (BEAKER) 179 mg/dL 70-110 TESTED AT [address] (test hwru=5314) [place] [address] BASIC METABOLIC [id number] 04:52:00 Test Item Value Reference Range Comments SODIUM (BEAKER) (test 137 meq/L 136-145 bolk=627) POTASSIUM (BEAKER) (test 3.8 meq/L 3.5-5.1 ncpk=843) CHLORIDE (BEAKER) (test 93 meq/L 98-107 aflr=519) CO2 (BEAKER) (test 36 meq/L 22-29 gtqk=068) BLOOD UREA NITROGEN 17 mg/dL 7-21 (BEAKER) (test hrsw=035) CREATININE (BEAKER) (test 0.54 mg/dL 0.57-1.25 htzx=953) GLUCOSE RANDOM (BEAKER) 103 mg/dL 70-105 (test arhu=518) CALCIUM (BEAKER) (test 8.5 mg/dL 8.4-10.2 ibmg=657) EGFR (BEAKER) (test 115 mL/min/1.73 sq m ESTIMATED GFR IS NOT mpjl=9887) ACCURATE CREATININE CLEARANCE IN PREDICTING GLOMERULAR FILTRATION RATE. ESTIMATED GFR IS NOT APPLICABLE FOR DIALYSIS PATIENTS. POCT-GLUCOSE [id number] 21:10:00 Test Item Value Reference Range Comments POC-GLUCOSE METER (BEAKER) 289 mg/dL 70-110 TESTED AT [address] (test czal=1991) [place] [address] CBC W/PLT COUNT & AUTO [id number] 15:29:00 Test Item Value Reference Range Comments WHITE BLOOD CELL COUNT (BEAKER) (test cmyp=491) 20.2 K/ L 3.5-10.5 RED BLOOD CELL COUNT (BEAKER) (test pmtb=554) 4.70 M/ L 3.93-5.22 HEMOGLOBIN (BEAKER) (test ixob=128) 12.6 GM/DL 11.2-15.7 HEMATOCRIT (BEAKER) (test ewle=894) 43.3 % 34.1-44.9 MEAN CORPUSCULAR VOLUME (BEAKER) (test novr=990) 92.1 fL 79.4-94.8 MEAN CORPUSCULAR HEMOGLOBIN (BEAKER) (test 26.8 pg 25.6-32.2 fphe=401) MEAN CORPUSCULAR HEMOGLOBIN CONC (BEAKER) (test 29.1 GM/DL 32.2-35.5 klit=480) RED CELL DISTRIBUTION WIDTH (BEAKER) (test 15.2 % 11.7-14.4 soio=315) PLATELET COUNT (BEAKER) (test rknz=103) 301 K/CU MM 150-450 MEAN PLATELET VOLUME (BEAKER) (test kpmt=014) 11.0 fL 9.4-12.3 NUCLEATED RED BLOOD CELLS (BEAKER) (test 0 /100 WBC 0-0 pmol=891) NEUTROPHILS RELATIVE PERCENT (BEAKER) (test 95 % mqnk=087) LYMPHOCYTES RELATIVE PERCENT (BEAKER) (test 2 % laye=526) MONOCYTES RELATIVE PERCENT (BEAKER) (test 2 % dgms=640) EOSINOPHILS RELATIVE PERCENT (BEAKER) (test 0 % txak=214) BASOPHILS RELATIVE PERCENT (BEAKER) (test 0 % fudj=059) NEUTROPHILS ABSOLUTE COUNT (BEAKER) (test 19.18 K/ L 1.56-6.13 zawi=139) LYMPHOCYTES ABSOLUTE COUNT (BEAKER) (test 0.40 K/ L 1.18-3.74 pbcw=623) MONOCYTES ABSOLUTE COUNT (BEAKER) (test 0.37 K/ L 0.24-0.36 tefh=052) EOSINOPHILS ABSOLUTE COUNT (BEAKER) (test 0.00 K/ L 0.04-0.36 xajy=211) BASOPHILS ABSOLUTE COUNT (BEAKER) (test 0.04 K/ L 0.01-0.08 dswd=039) IMMATURE GRANULOCYTES-RELATIVE PERCENT (BEAKER) 1 % 0-1 (test qsox=2354) POCT-GLUCOSE [id number] 13:19:00 Test Item Value Reference Range Comments POC-GLUCOSE METER (BEAKER) 198 mg/dL 70-110 TESTED AT [facility] [address] (test phvi=2404) [facility] [address] BODY FLUID CULTURE + GRAM [id number] 11:22:00 Test Item Value Reference Range Comments CULTURE (BEAKER) (test vpun=2265) No growth GRAM STAIN RESULT (BEAKER) (test <1+ WBCs srwe=0245) GRAM STAIN RESULT (BEAKER) (test No organisms seen njhw=41946) RAD, CHEST, 1 VIEW, NON [id number] 08:47:00Reason for exam:->sobShould this be performed at [...] MDReport Verified Date/Time: 02/11/2017 08:47:53 Reading Location: [address] Neuro Reading Room BASIC METABOLIC [id number] 07:36:00 Test Item Value Reference Range Comments SODIUM (BEAKER) (test 138 meq/L 136-145 qjhj=385) POTASSIUM (BEAKER) (test 3.7 meq/L 3.5-5.1 tgzj=848) CHLORIDE (BEAKER) (test 96 meq/L 98-107 rbmy=004) CO2 (BEAKER) (test 33 meq/L 22-29 frud=817) BLOOD UREA NITROGEN 18 mg/dL 7-21 (BEAKER) (test necy=853) CREATININE (BEAKER) (test 0.61 mg/dL 0.57-1.25 uzhl=548) GLUCOSE RANDOM (BEAKER) 247 mg/dL 70-105 (test jhbu=818) CALCIUM (BEAKER) (test 8.4 mg/dL 8.4-10.2 ahre=766) EGFR (BEAKER) (test 100 mL/min/1.73 sq m ESTIMATED GFR IS NOT bxyy=1539) ACCURATE CREATININE CLEARANCE IN PREDICTING GLOMERULAR FILTRATION RATE. ESTIMATED GFR IS NOT APPLICABLE FOR DIALYSIS PATIENTS. POCT-GLUCOSE [id number] 22:00:00 Test Item Value Reference Range Comments POC-GLUCOSE METER (BEAKER) 366 mg/dL 70-110 Will Repeat Test/TESTED AT (test dmrl=1825) [facility] [address] [facility] [address] (MANUAL DIFFERENTIAL)2017-02-10 19:58:00 Test Item Value Reference Range Comments NEUTROPHILS - REL (DIFF) (BEAKER) (test 89 % jukg=5344) LYMPHOCYTES - REL (DIFF) (BEAKER) (test 2 % kujt=4984) MONOCYTES - REL (DIFF) (BEAKER) (test dpkq=4277) 6 % BANDS - REL (DIFF) (BEAKER) (test bjei=2577) 3 % 0-10 NEUTROPHILS - ABS (DIFF) (BEAKER) (test 24.21 K/ L 1.80-8.00 anpq=5568) LYMPHOCYTES - ABS (DIFF) (BEAKER) (test 0.54 K/ L 1.48-4.50 tipw=4933) MONOCYTES - ABS (DIFF) (BEAKER) (test uuhn=4360) 1.63 K/ L 0.00-1.30 BANDS-ABS (DIFF) (BEAKER) (test tqfz=7575) 0.8 K/ L 0.0-0.8 TOTAL COUNTED (BEAKER) (test cuyi=3487) 100 BANDS + SEGMENTED NEUTROPHILS (BEAKER) (test 25.02 oacm=1899) WBC MORPHOLOGY (BEAKER) (test xzpz=616) Normal PLT MORPHOLOGY (BEAKER) (test tsnm=679) Normal RBC MORPHOLOGY (BEAKER) (test bstr=909) Normal CBC W/PLT COUNT & AUTO [id number] 19:57:00 Test Item Value Reference Range Comments WHITE BLOOD CELL COUNT (BEAKER) (test xopg=550) 27.2 K/ L 3.5-10.5 RED BLOOD CELL COUNT (BEAKER) (test rjub=436) 4.46 M/ L 3.93-5.22 HEMOGLOBIN (BEAKER) (test neyn=475) 12.1 GM/DL 11.2-15.7 HEMATOCRIT (BEAKER) (test knyb=472) 42.9 % 34.1-44.9 MEAN CORPUSCULAR VOLUME (BEAKER) (test msrt=658) 96.2 fL 79.4-94.8 MEAN CORPUSCULAR HEMOGLOBIN (BEAKER) (test 27.1 pg 25.6-32.2 fzlw=794) MEAN CORPUSCULAR HEMOGLOBIN CONC (BEAKER) (test 28.2 GM/DL 32.2-35.5 zeih=084) RED CELL DISTRIBUTION WIDTH (BEAKER) (test 15.6 % 11.7-14.4 rrvi=520) PLATELET COUNT (BEAKER) (test pbqd=015) 318 K/CU MM 150-450 MEAN PLATELET VOLUME (BEAKER) (test npot=655) 11.0 fL 9.4-12.3 NUCLEATED RED BLOOD CELLS (BEAKER) (test 0 /100 WBC 0-0 qxre=018) IMMATURE GRANULOCYTES-RELATIVE PERCENT (BEAKER) 1 % 0-1 (test hwfm=0912) POCT-GLUCOSE [id number] 17:32:00 Test Item Value Reference Range Comments POC-GLUCOSE METER (BEAKER) 213 mg/dL 70-110 TESTED AT [place] [id number] [facility] (test jmpb=2601) [facility] [address] BLOOD GAS, [id number] 14:31:00 Test Item Value Reference Range Comments PH ARTERIAL (BEAKER) (test wfgg=925) 7.31 7.35-7.45 PCO2 ARTERIAL (BEAKER) (test uelc=480) 70 mmHg 35-45 PO2 ARTERIAL (BEAKER) (test vzlh=235) 50 mmHg 80-90 O2 SATURATION ARTERIAL (BEAKER) (test pqop=478) 78.5 % 96.0-97.0 HCO3 ARTERIAL (BEAKER) (test gozd=663) 34 mmol/L 21-29 BASE EXCESS ARTERIAL (BEAKER) (test ccmv=277) 6.2 mmol/L -2.0-3.0 PATIENT TEMPERATURE (BEAKER) (test wkvq=3582) 37.5 C FIO2 (BEAKER) (test rybs=4559) 21.0 % BLOOD GAS, [id number] 12:37:00 Test Item Value Reference Range Comments PH ARTERIAL (BEAKER) (test thkq=175) 7.27 7.35-7.45 PCO2 ARTERIAL (BEAKER) (test uvbf=095) 76 mmHg 35-45 PO2 ARTERIAL (BEAKER) (test kbzl=768) 123 mmHg 80-90 O2 SATURATION ARTERIAL (BEAKER) (test vuuo=276) 97.7 % 96.0-97.0 HCO3 ARTERIAL (BEAKER) (test ubim=192) 34 mmol/L 21-29 BASE EXCESS ARTERIAL (BEAKER) (test tsvt=117) 5.2 mmol/L -2.0-3.0 PATIENT TEMPERATURE (BEAKER) (test inom=8781) 37.5 C FIO2 (BEAKER) (test bqft=9792) 36.0 % LACTIC ACID, VENOUS, WHOLE [id number] 10:45:00 Test Item Value Reference Range Comments LACTATE BLOOD VENOUS (2) (BEAKER) (test 1.8 mmol/L 0.5-2.2 kzlo=9898) Effective 07/15/2015: Units/Reference Range ChangeNew: 0.5-2.2 mmol/L Previous: 5 -20 mg/dLBLOOD GAS, [id number] 10:40:00 Test Item Value Reference Range Comments PH ARTERIAL (BEAKER) (test htyv=496) 7.19 7.35-7.45 PCO2 ARTERIAL (BEAKER) (test szbr=770) 93 mmHg 35-45 PO2 ARTERIAL (BEAKER) (test rksx=332) 56 mmHg 80-90 O2 SATURATION ARTERIAL (BEAKER) (test jclg=286) 78.6 % 96.0-97.0 HCO3 ARTERIAL (BEAKER) (test zvss=251) 34 mmol/L 21-29 BASE EXCESS ARTERIAL (BEAKER) (test nfma=091) 3.8 mmol/L -2.0-3.0 PATIENT TEMPERATURE (BEAKER) (test azqn=8838) 37.5 C FIO2 (BEAKER) (test ivfe=0637) 21.0 % BLOOD [id number] 10:00:00 Test Item Value Reference Range Comments CULTURE (BEAKER) (test stpu=0712) No growth in 5 days POCT-GLUCOSE [id number] 08:06:00 Test Item Value Reference Range Comments POC-GLUCOSE METER (BEAKER) 297 mg/dL 70-110 TESTED AT [address] (test saeq=4988) [place] [id number] BASIC METABOLIC [id number] 05:28:00 Test Item Value Reference Range Comments SODIUM (BEAKER) (test 136 meq/L 136-145 yiuy=276) POTASSIUM (BEAKER) (test 4.4 meq/L 3.5-5.1 aaay=494) CHLORIDE (BEAKER) (test 98 meq/L 98-107 xywb=335) CO2 (BEAKER) (test 30 meq/L 22-29 nkga=660) BLOOD UREA NITROGEN 23 mg/dL 7-21 (BEAKER) (test kfmd=790) CREATININE (BEAKER) (test 0.82 mg/dL 0.57-1.25 lkck=268) GLUCOSE RANDOM (BEAKER) 388 mg/dL 70-105 (test yeek=311) CALCIUM (BEAKER) (test 8.6 mg/dL 8.4-10.2 zxle=923) EGFR (BEAKER) (test 71 mL/min/1.73 sq m ESTIMATED GFR IS NOT dlsw=0867) ACCURATE CREATININE CLEARANCE IN PREDICTING GLOMERULAR FILTRATION RATE. ESTIMATED GFR IS NOT APPLICABLE FOR DIALYSIS PATIENTS. BLOOD [id number] 05:02:00 Test Item Value Reference Range Comments CULTURE (BEAKER) (test gvqt=0771) No growth in 5 days POCT-GLUCOSE [id number] 21:15:00 Test Item Value Reference Range Comments POC-GLUCOSE METER (BEAKER) 174 mg/dL 70-110 TESTED AT [place] [id number] [facility] (test erxl=4070) [place] [id number] POCT-GLUCOSE [id number] 18:38:00 Test Item Value Reference Range Comments POC-GLUCOSE METER (BEAKER) 202 mg/dL 70-110 TESTED AT [address] (test cedq=1727) [facility] [address] RAD, CHEST, 1 VIEW, NON [id number] 15:27:00Reason for exam:->CoughShould this be performed at [...] Valdovinos MDReport Verified Date/Time:02/09/2017 15:27:55 Reading Location: [facility] Radiology Reading Room POCT-GLUCOSE [id number] 12:21:00 Test Item Value Reference Range Comments POC-GLUCOSE METER (BEAKER) 185 mg/dL 70-110 TESTED AT [facility] [address] [facility] (test oxul=0916) [facility] [address] POCT-GLUCOSE [id number] 07:52:00 Test Item Value Reference Range Comments POC-GLUCOSE METER (BEAKER) 176 mg/dL 70-110 TESTED AT [address] (test ksth=6356) [place] [id number] BASIC METABOLIC [id number] 05:59:00 Test Item Value Reference Range Comments SODIUM (BEAKER) (test 137 meq/L 136-145 qpkr=682) POTASSIUM (BEAKER) (test 4.4 meq/L 3.5-5.1 fhht=333) CHLORIDE (BEAKER) (test 93 meq/L 98-107 hsna=542) CO2 (BEAKER) (test 40 meq/L 22-29 sahj=246) BLOOD UREA NITROGEN 16 mg/dL 7-21 (BEAKER) (test yrku=697) CREATININE (BEAKER) (test 0.50 mg/dL 0.57-1.25 bkov=727) GLUCOSE RANDOM (BEAKER) 181 mg/dL 70-105 (test gdkd=927) CALCIUM (BEAKER) (test 8.1 mg/dL 8.4-10.2 azxd=927) EGFR (BEAKER) (test 125 mL/min/1.73 sq m ESTIMATED GFR IS NOT zlup=0031) ACCURATE CREATININE CLEARANCE IN PREDICTING GLOMERULAR FILTRATION RATE. ESTIMATED GFR IS NOT APPLICABLE FOR DIALYSIS PATIENTS. [id number] 05:04:00 Test Item Value Reference Range Comments MAGNESIUM (BEAKER) (test gknm=342) 2.1 mg/dL 1.6-2.6 CBC W/PLT COUNT & AUTO [id number] 04:50:00 Test Item Value Reference Range Comments WHITE BLOOD CELL COUNT (BEAKER) (test atbj=963) 10.6 K/ L 3.5-10.5 RED BLOOD CELL COUNT (BEAKER) (test aqbl=879) 3.44 M/ L 3.93-5.22 HEMOGLOBIN (BEAKER) (test dzbz=721) 9.3 GM/DL 11.2-15.7 HEMATOCRIT (BEAKER) (test fcoa=094) 31.9 % 34.1-44.9 MEAN CORPUSCULAR VOLUME (BEAKER) (test kucb=279) 92.7 fL 79.4-94.8 MEAN CORPUSCULAR HEMOGLOBIN (BEAKER) (test 27.0 pg 25.6-32.2 iqsi=081) MEAN CORPUSCULAR HEMOGLOBIN CONC (BEAKER) (test 29.2 GM/DL 32.2-35.5 mngg=330) RED CELL DISTRIBUTION WIDTH (BEAKER) (test 15.4 % 11.7-14.4 otjy=909) PLATELET COUNT (BEAKER) (test iswg=519) 156 K/CU MM 150-450 MEAN PLATELET VOLUME (BEAKER) (test umlg=944) 12.0 fL 9.4-12.3 NUCLEATED RED BLOOD CELLS (BEAKER) (test 0 /100 WBC 0-0 olkl=624) NEUTROPHILS RELATIVE PERCENT (BEAKER) (test 90 % yuqs=336) LYMPHOCYTES RELATIVE PERCENT (BEAKER) (test 5 % kzbv=112) MONOCYTES RELATIVE PERCENT (BEAKER) (test 4 % ubsl=575) EOSINOPHILS RELATIVE PERCENT (BEAKER) (test 0 % rqmb=427) BASOPHILS RELATIVE PERCENT (BEAKER) (test 0 % kbpk=587) NEUTROPHILS ABSOLUTE COUNT (BEAKER) (test 9.52 K/ L 1.56-6.13 lrqk=218) LYMPHOCYTES ABSOLUTE COUNT (BEAKER) (test 0.48 K/ L 1.18-3.74 dwms=189) MONOCYTES ABSOLUTE COUNT (BEAKER) (test 0.46 K/ L 0.24-0.36 sfjg=246) EOSINOPHILS ABSOLUTE COUNT (BEAKER) (test 0.00 K/ L 0.04-0.36 luae=854) BASOPHILS ABSOLUTE COUNT (BEAKER) (test 0.01 K/ L 0.01-0.08 lewx=184) IMMATURE GRANULOCYTES-RELATIVE PERCENT (BEAKER) 1 % 0-1 (test vgqd=5805) POCT-GLUCOSE [id number] 20:33:00 Test Item Value Reference Range Comments POC-GLUCOSE METER (BEAKER) 200 mg/dL 70-110 TESTED AT [address] (test esgz=0718) [place] [address] POCT-GLUCOSE [id number] 19:24:00 Test Item Value Reference Range Comments POC-GLUCOSE METER (BEAKER) 237 mg/dL 70-110 TESTED AT [address] (test dfca=7054) [place] [address] POCT-GLUCOSE [id number] 11:09:00 Test Item Value Reference Range Comments POC-GLUCOSE METER (BEAKER) 301 mg/dL 70-110 TESTED AT [address] (test rtsc=8924) [place] [address] HEMOGLOBIN [id number] 10:56:00 Test Item Value Reference Range Comments HEMOGLOBIN A1C (BEAKER) (test hbtp=913) 5.8 % 4.3-6.1 POCT-GLUCOSE [id number] 07:55:00 Test Item Value Reference Range Comments POC-GLUCOSE METER (BEAKER) 216 mg/dL 70-110 TESTED AT [address] (test golb=3455) [place] [address] HEPATITIS C PCR, [id number] 05:55:00 Test Item Value Reference Range Comments HCV RESULT COMPONENT (BEAKER) HCV RNA not detected HCV RNA not detected (test wfhp=9698) This test uses a Real-Time Polymerase Chain Reaction (RT-PCR) methodology and was performed using ANN Ampliprep/ANN TaqMan HCV test kit version 2.0 ( [employer]).Reportable range for this assay is 15 - 100,000, 000 IU per mL (1.18 - 8.00 Log IU/mL).This test uses a Real-Time Polymerase Chain Reaction (RT-PCR) methodology and was performed using ANN Ampliprep/ ANN TaqMan HCV test kit version 2.0 ([employer]) .Reportable range for this assay is 15 - 100,000,000 IU per mL (1.18 - 8.00 Log IU/mL).[id number] 05:50:00 Test Item Value Reference Range Comments MAGNESIUM (BEAKER) (test oswg=014) 2.0 mg/dL 1.6-2.6 COMPREHENSIVE METABOLIC [id number] 05:50:00 Test Item Value Reference Range Comments TOTAL PROTEIN (BEAKER) 6.0 gm/dL 6.0-8.3 (test klbo=430) ALBUMIN (BEAKER) (test 3.2 g/dL 3.5-5.0 ytxd=0759) ALKALINE PHOSPHATASE 97 U/L 40-150 (BEAKER) (test qobc=282) BILIRUBIN TOTAL (BEAKER) 0.3 mg/dL 0.2-1.2 (test fvid=990) SODIUM (BEAKER) (test 139 meq/L 136-145 otcs=438) POTASSIUM (BEAKER) (test 4.7 meq/L 3.5-5.1 hmmc=312) CHLORIDE (BEAKER) (test 96 meq/L 98-107 wqql=772) CO2 (BEAKER) (test 37 meq/L 22-29 nvib=896) BLOOD UREA NITROGEN 12 mg/dL 7-21 (BEAKER) (test issx=083) CREATININE (BEAKER) (test 0.54 mg/dL 0.57-1.25 uoix=759) GLUCOSE RANDOM (BEAKER) 172 mg/dL 70-105 (test sudo=875) CALCIUM (BEAKER) (test 8.7 mg/dL 8.4-10.2 nmfp=456) AST (SGOT) (BEAKER) (test 33 U/L 5-34 jtyi=756) ALT (SGPT) (BEAKER) (test 33 U/L 6-55 sglh=928) EGFR (BEAKER) (test 115 mL/min/1.73 sq ESTIMATED GFR IS NOT kqyg=8138) m ACCURATE CREATININE CLEARANCE IN PREDICTING GLOMERULAR FILTRATION RATE. ESTIMATED GFR IS NOT APPLICABLE FOR DIALYSIS PATIENTS. CBC W/PLT COUNT & AUTO [id number] 05:32:00 Test Item Value Reference Range Comments WHITE BLOOD CELL COUNT (BEAKER) (test cdsy=545) 17.0 K/ L 3.5-10.5 RED BLOOD CELL COUNT (BEAKER) (test idjv=599) 3.42 M/ L 3.93-5.22 HEMOGLOBIN (BEAKER) (test blep=618) 9.4 GM/DL 11.2-15.7 HEMATOCRIT (BEAKER) (test wgxi=300) 32.0 % 34.1-44.9 MEAN CORPUSCULAR VOLUME (BEAKER) (test ewob=597) 93.6 fL 79.4-94.8 MEAN CORPUSCULAR HEMOGLOBIN (BEAKER) (test 27.5 pg 25.6-32.2 fdun=407) MEAN CORPUSCULAR HEMOGLOBIN CONC (BEAKER) (test 29.4 GM/DL 32.2-35.5 vetv=903) RED CELL DISTRIBUTION WIDTH (BEAKER) (test 15.6 % 11.7-14.4 osbl=293) PLATELET COUNT (BEAKER) (test mxgh=177) 169 K/CU MM 150-450 MEAN PLATELET VOLUME (BEAKER) (test nutd=493) 11.0 fL 9.4-12.3 NUCLEATED RED BLOOD CELLS (BEAKER) (test 0 /100 WBC 0-0 qicu=214) NEUTROPHILS RELATIVE PERCENT (BEAKER) (test 91 % umli=657) LYMPHOCYTES RELATIVE PERCENT (BEAKER) (test 4 % mmep=547) MONOCYTES RELATIVE PERCENT (BEAKER) (test 5 % daqr=076) EOSINOPHILS RELATIVE PERCENT (BEAKER) (test 0 % ikfp=719) BASOPHILS RELATIVE PERCENT (BEAKER) (test 0 % fevp=125) NEUTROPHILS ABSOLUTE COUNT (BEAKER) (test 15.41 K/ L 1.56-6.13 bozy=458) LYMPHOCYTES ABSOLUTE COUNT (BEAKER) (test 0.60 K/ L 1.18-3.74 aptk=811) MONOCYTES ABSOLUTE COUNT (BEAKER) (test 0.78 K/ L 0.24-0.36 xpxa=929) EOSINOPHILS ABSOLUTE COUNT (BEAKER) (test 0.00 K/ L 0.04-0.36 fhxd=061) BASOPHILS ABSOLUTE COUNT (BEAKER) (test 0.01 K/ L 0.01-0.08 jfwx=601) IMMATURE GRANULOCYTES-RELATIVE PERCENT (BEAKER) 1 % 0-1 (test teeg=1433) POCT-GLUCOSE [id number] 22:20:00 Test Item Value Reference Range Comments POC-GLUCOSE METER (BEAKER) 323 mg/dL 70-110 Notified GUS PRATT/TESTED AT [facility] (test mlxe=3186) [address] [facility] [address] BODY FLUID CELL COUNT WITH [id number] 21:00:00 Test Item Value Reference Range Comments APPEARANCE FLUID (BEAKER) (test ehlo=893) Slightly Cloudy Clear COLOR FLUID (BEAKER) (test bqmf=170) Yellow Colorless, Straw RBC FLUID (BEAKER) (test miby=391) 1000 /cu mm <=1 ADJUSTED WBC FLUID (BEAKER) (test 620 /cu mm <=5 ibra=4306) LINING CELLS (BEAKER) (test wjrp=8959) 74 /cu mm <=1 NEUTROPHILS FLUID (BEAKER) (test navf=3054) 21 % LYMPHS FLUID (BEAKER) (test hvpr=261) 30 % MONO/MACROPHAGE FLUID (BEAKER) (test 49 % qfsa=861) EOSINOPHILS FLUID (BEAKER) (test atwi=237) 0 % BASO FLUID (BEAKER) (test eaif=610) 0 % CONTAINER BODY FLUID (BEAKER) (test EDTA Tube qlhb=8234) POCT-GLUCOSE [id number] 20:51:00 Test Item Value Reference Range Comments POC-GLUCOSE METER (BEAKER) 343 mg/dL 70-110 Notified GUS PRATT/TESTED AT [facility] (test zxvi=4671) [address] [facility] [address] RAD, CHEST, 1 VIEW, NON [id number] 20:12:00Reason for exam:->right pleural effusion s/p thoracentesis [...] MDReport Verified Date/Time: 02/07/2017 20:12:46 Reading Location: [address] Reading Room LACTATE DEHYDROGENASE (LDH), BODY [id number] 19:12:00 Test Item Value Reference Range Comments LACTATE DEHYDROGENASE FLUID (BEAKER) < U/L Light's criteria identifies (test mnfa=648) effusions if one or more are pre Absence of reference range indicates that normals have not been defined.Assay performance has not been validated for this type of specimen.PROTEIN, BODY [id number] 19:12:00 Test Item Value Reference Range Comments PROTEIN FLUID (BEAKER) (test 1.8 g/dL Light's criteria identifies nbun=534) effusions if one or more are pre Absence of reference range indicates that normals have not been defined.Assay performance has not been validated for this type of specimen.POCT-GLUCOSE [id number] 18:28:00 Test Item Value Reference Range Comments POC-GLUCOSE METER (BEAKER) 272 mg/dL 70-110 TESTED AT [address] (test lolv=7100) [place] [address] U/S, [id number] 18:23:00Laterality?->RightReason for exam:-> Diagnostic and therapeutic thorcaentesisFINAL [...] was prepped and anesthetized and a 5 Macedonian needle/catheter was inserted into the right pleural space. Four 25 cc of yellowish fluid were removed. A chest x-ray was ordered. CONCLUSION: Ultrasound-guided thoracentesis Signed: Dell Pacheco [facility]epmer[facility] Verified Date/Time: 02/07/2017 18:23:13 Reading Location : [facility] [id number] Ultrasound Reading Room URINE [id number] 15:17:00 Test Item Value Reference Range Comments CULTURE (BEAKER) (test >100,000 col/mL Susan glabrata difw=5131) LACTATE DEHYDROGENASE (LDH)2017-02-07 14:18:00 Test Item Value Reference Range Comments LACTATE DEHYDROGENASE (BEAKER) (test gwyl=081) 296 U/L 125-220 [id number] 11:54:00 Test Item Value Reference Range Comments PROTIME (BEAKER) (test fxgj=836) 13.4 seconds 11.7-14.7 INR (BEAKER) (test bodm=338) 1.0 <=5.9 PARTIAL THROMBOPLASTIN TIME (BEAKER) (test 25.9 seconds 22.5-36.0 prfu=976) RECOMMENDED COUMADIN/WARFARIN INR THERAPY RANGESSTANDARD DOSE: 2.0 - 3.0 Includes: PROPHYLAXIS forvenous thrombosis, systemic embolization; TREATMENT for venous thrombosis and/or pulmonary embolus.HIGH RISK: Target INR is 2.5-3.5 for patients with mechanical heart valves.[id number] 05:39:00 Test Item Value Reference Range Comments MAGNESIUM (BEAKER) (test qwhy=518) 1.9 mg/dL 1.6-2.6 COMPREHENSIVE METABOLIC [id number] 05:39:00 Test Item Value Reference Range Comments TOTAL PROTEIN (BEAKER) 6.6 gm/dL 6.0-8.3 (test ansh=961) ALBUMIN (BEAKER) (test 3.5 g/dL 3.5-5.0 bucd=2510) ALKALINE PHOSPHATASE 111 U/L 40-150 (BEAKER) (test nohi=578) BILIRUBIN TOTAL (BEAKER) < mg/dL 0.2-1.2 (test tmho=054) SODIUM (BEAKER) (test 137 meq/L 136-145 vmpg=582) POTASSIUM (BEAKER) (test 3.8 meq/L 3.5-5.1 jsxn=877) CHLORIDE (BEAKER) (test 99 meq/L 98-107 xnyy=317) CO2 (BEAKER) (test 31 meq/L 22-29 serp=900) BLOOD UREA NITROGEN 11 mg/dL 7-21 (BEAKER) (test wiza=181) CREATININE (BEAKER) (test 0.61 mg/dL 0.57-1.25 dima=442) GLUCOSE RANDOM (BEAKER) 221 mg/dL 70-105 (test fjmq=547) CALCIUM (BEAKER) (test 8.5 mg/dL 8.4-10.2 osjz=419) AST (SGOT) (BEAKER) (test 12 U/L 5-34 pilu=668) ALT (SGPT) (BEAKER) (test 24 U/L 6-55 ygkj=850) EGFR (BEAKER) (test 100 mL/min/1.73 sq ESTIMATED GFR IS NOT pqna=3888) m ACCURATE CREATININE CLEARANCE IN PREDICTING GLOMERULAR FILTRATION RATE. ESTIMATED GFR IS NOT APPLICABLE FOR DIALYSIS PATIENTS. LIPID [id number] 05:39:00 Test Item Value Reference Range Comments TRIGLYCERIDES (BEAKER) (test kytv=097) 101 mg/dL CHOLESTEROL (BEAKER) (test aapl=454) 134 mg/dL HDL CHOLESTEROL (BEAKER) (test zlue=199) 52 mg/dL LDL CHOLESTEROL CALCULATED (BEAKER) (test 62 mg/dL exdb=858) Triglyceride Reference Range: Low Risk <150 Borderline 150- 199 High Risk 200-499 Very High Risk >=500Cholesterol Reference Range: Low Risk <200 Borderline 200-239 High Risk > 240HDL Cholesterol Reference Range: Low Risk >=60 High Risk <40LDL Cholesterol Reference Range: Optimal <100 Near Optimal 100-129 Borderline 130-159 High 160-189 Very High >=190CBC W/PLT COUNT & AUTO [id number] 04:29:00 Test Item Value Reference Range Comments WHITE BLOOD CELL COUNT (BEAKER) (test ojct=073) 11.2 K/ L 3.5-10.5 RED BLOOD CELL COUNT (BEAKER) (test wjxq=013) 3.72 M/ L 3.93-5.22 HEMOGLOBIN (BEAKER) (test vrgh=406) 10.1 GM/DL 11.2-15.7 HEMATOCRIT (BEAKER) (test dscb=584) 33.8 % 34.1-44.9 MEAN CORPUSCULAR VOLUME (BEAKER) (test byki=639) 90.9 fL 79.4-94.8 MEAN CORPUSCULAR HEMOGLOBIN (BEAKER) (test 27.2 pg 25.6-32.2 ehcq=447) MEAN CORPUSCULAR HEMOGLOBIN CONC (BEAKER) (test 29.9 GM/DL 32.2-35.5 vema=247) RED CELL DISTRIBUTION WIDTH (BEAKER) (test 15.7 % 11.7-14.4 byba=700) PLATELET COUNT (BEAKER) (test bmhj=719) 238 K/CU MM 150-450 MEAN PLATELET VOLUME (BEAKER) (test mhhk=855) 11.1 fL 9.4-12.3 NUCLEATED RED BLOOD CELLS (BEAKER) (test 0 /100 WBC 0-0 shay=834) NEUTROPHILS RELATIVE PERCENT (BEAKER) (test 87 % dzpo=854) LYMPHOCYTES RELATIVE PERCENT (BEAKER) (test 6 % zqmn=928) MONOCYTES RELATIVE PERCENT (BEAKER) (test 5 % ftek=643) EOSINOPHILS RELATIVE PERCENT (BEAKER) (test 0 % bbce=423) BASOPHILS RELATIVE PERCENT (BEAKER) (test 0 % afzn=141) NEUTROPHILS ABSOLUTE COUNT (BEAKER) (test 9.80 K/ L 1.56-6.13 kqgw=779) LYMPHOCYTES ABSOLUTE COUNT (BEAKER) (test 0.72 K/ L 1.18-3.74 dzaj=055) MONOCYTES ABSOLUTE COUNT (BEAKER) (test 0.57 K/ L 0.24-0.36 qiyv=390) EOSINOPHILS ABSOLUTE COUNT (BEAKER) (test 0.00 K/ L 0.04-0.36 nlyd=762) BASOPHILS ABSOLUTE COUNT (BEAKER) (test 0.00 K/ L 0.01-0.08 uvpw=332) IMMATURE GRANULOCYTES-RELATIVE PERCENT (BEAKER) 1 % 0-1 (test ltfh=0437) CT, CHEST, WITHOUT [id number] 23:24:00FINAL REPORT INDICATION: 62-year-old female with hypoxia. [...] Verified Date/Time: 02/06/2017 23: 24:50 Reading Location: [facility] C013 Consult Reading Room TSH/FREE T4 IF [id number] 19:48:00 Test Item Value Reference Range Comments THYROID STIMULATING HORMONE (BEAKER) (test 0.47 uIU/mL 0.35-4.94 bwlt=260) RESPIRATORY PANEL [id number] 14:57:00 Test Item Value Reference Range Comments HUMAN METAPNEUMOVIRUS (BEAKER) (test Not detected Not detected, Inconclusive eouh=0912) RHINOVIRUS (BEAKER) (test phpa=9299) Not detected Not detected, Inconclusive INFLUENZA A (BEAKER) (test Not detected Not detected, Inconclusive gnyy=6746) INFLUENZA A SUBTYPE H1 (BEAKER) Not detected Not detected, Inconclusive (test mmrh=5063) INFLUENZA A SUBTYPE H3 (BEAKER) Not detected Not detected, Inconclusive (test eara=9296) INFLUENZA A SUBTYPE H1-2009 (BEAKER) Not detected Not detected, Inconclusive (test wybd=1476) INFLUENZA B (BEAKER) (test Not detected Not detected, Inconclusive uiiy=1327) RESPIRATORY SYNCYTIAL VIRUS (BEAKER) Not detected Not detected, Inconclusive (test yphb=7867) PARAINFLUENZA VIRUS 1 (BEAKER) (test Not detected Not detected, Inconclusive jopa=2597) PARAINFLUENZA VIRUS 2 (BEAKER) (test Not detected Not detected, Inconclusive aecc=6357) PARAINFLUENZA VIRUS 3 (BEAKER) (test Not detected Not detected, Inconclusive ivwu=1212) PARAINFLUENZA VIRUS 4 (BEAKER) (test Not detected Not detected, Inconclusive nfgz=0078) ADENOVIRUS (BEAKER) (test dnfn=8268) Not detected Not detected, Inconclusive CORONAVIRUS 229E (BEAKER) (test Not detected Not detected, Inconclusive ilbu=3228) CORONAVIRUS HKU1 (BEAKER) (test Not detected Not detected, Inconclusive fxnj=6165) CORONAVIRUS NL63 (BEAKER) (test Not detected Not detected, Inconclusive bicq=0354) CORONAVIRUS OC43 (BEAKER) (test Not detected Not detected, Inconclusive ajbm=8243) BORDETELLA PERTUSSIS (BEAKER) (test Not detected Not detected, Inconclusive mine=0286) CHLAMYDOPHILA PNEUMONIAE (BEAKER) Not detected Not detected, Inconclusive (test klce=1917) MYCOPLASMA PNEUMONIAE (BEAKER) (test Not detected Not detected, Inconclusive jnqs=6014) TROPONIN [id number] 13:31:00 Test Item Value Reference Range Comments TROPONIN I (BEAKER) (test jgic=714) 0.08 ng/mL 0.00-0.03 Troponin I (TnI) levels [...] acute neurological disease, and persistent tachyarrhythmia.VANCOMYCIN LEVEL, [id number] 09:30 :00 Test Item Value Reference Range Comments VANCOMYCIN TROUGH (BEAKER) (test xjsu=437) 8.6 ug/mL 10.0-20.0 [id number] 07:03:00 Test Item Value Reference Range Comments MAGNESIUM (BEAKER) (test tnnn=568) 1.7 mg/dL 1.6-2.6 COMPREHENSIVE METABOLIC [id number] 07:03:00 Test Item Value Reference Range Comments TOTAL PROTEIN (BEAKER) 5.6 gm/dL 6.0-8.3 (test kfng=734) ALBUMIN (BEAKER) (test 3.0 g/dL 3.5-5.0 namk=0924) ALKALINE PHOSPHATASE 106 U/L 40-150 (BEAKER) (test oqad=875) BILIRUBIN TOTAL (BEAKER) < mg/dL 0.2-1.2 (test vvwy=532) SODIUM (BEAKER) (test 136 meq/L 136-145 lmyr=482) POTASSIUM (BEAKER) (test 3.8 meq/L 3.5-5.1 txtc=043) CHLORIDE (BEAKER) (test 96 meq/L 98-107 klqu=594) CO2 (BEAKER) (test 33 meq/L 22-29 uwmb=552) BLOOD UREA NITROGEN 13 mg/dL 7-21 (BEAKER) (test ninr=189) CREATININE (BEAKER) (test 0.56 mg/dL 0.57-1.25 bpxs=075) GLUCOSE RANDOM (BEAKER) 250 mg/dL 70-105 (test gszg=286) CALCIUM (BEAKER) (test 8.3 mg/dL 8.4-10.2 syzt=027) AST (SGOT) (BEAKER) (test 12 U/L 5-34 fyhh=139) ALT (SGPT) (BEAKER) (test 24 U/L 6-55 mwtc=285) EGFR (BEAKER) (test 110 mL/min/1.73 sq ESTIMATED GFR IS NOT acav=2165) m ACCURATE CREATININE CLEARANCE IN PREDICTING GLOMERULAR FILTRATION RATE. ESTIMATED GFR IS NOT APPLICABLE FOR DIALYSIS PATIENTS. TROPONIN [id number] 07:00:00 Test Item Value Reference Range Comments TROPONIN I (BEAKER) (test tvqr=242) 0.10 ng/mL 0.00-0.03 Troponin I (TnI) levels [...] acidosis, acute neurological disease, and persistent tachyarrhythmia.TROPONIN [id number] 07:00:00 Test Item Value Reference Range Comments TROPONIN I (BEAKER) (test euzw=313) 0.09 ng/mL 0.00-0.03 Troponin I (TnI) levels [...] and persistent tachyarrhythmia.CBC W/PLT COUNT & AUTO [id number] 06:20:00 Test Item Value Reference Range Comments WHITE BLOOD CELL COUNT (BEAKER) (test qcjz=472) 10.2 K/ L 3.5-10.5 RED BLOOD CELL COUNT (BEAKER) (test aeja=227) 3.35 M/ L 3.93-5.22 HEMOGLOBIN (BEAKER) (test iwxr=690) 9.2 GM/DL 11.2-15.7 HEMATOCRIT (BEAKER) (test eddg=998) 29.6 % 34.1-44.9 MEAN CORPUSCULAR VOLUME (BEAKER) (test wvxr=520) 88.4 fL 79.4-94.8 MEAN CORPUSCULAR HEMOGLOBIN (BEAKER) (test 27.5 pg 25.6-32.2 acpz=921) MEAN CORPUSCULAR HEMOGLOBIN CONC (BEAKER) (test 31.1 GM/DL 32.2-35.5 uzgw=479) RED CELL DISTRIBUTION WIDTH (BEAKER) (test 16.1 % 11.7-14.4 rgeo=639) PLATELET COUNT (BEAKER) (test duhf=363) 185 K/CU MM 150-450 MEAN PLATELET VOLUME (BEAKER) (test yvxu=336) 11.0 fL 9.4-12.3 NUCLEATED RED BLOOD CELLS (BEAKER) (test 0 /100 WBC 0-0 aluk=601) NEUTROPHILS RELATIVE PERCENT (BEAKER) (test 91 % fxbc=337) LYMPHOCYTES RELATIVE PERCENT (BEAKER) (test 4 % xost=079) MONOCYTES RELATIVE PERCENT (BEAKER) (test 4 % imwe=762) EOSINOPHILS RELATIVE PERCENT (BEAKER) (test 0 % vmqt=013) BASOPHILS RELATIVE PERCENT (BEAKER) (test 0 % heqv=217) NEUTROPHILS ABSOLUTE COUNT (BEAKER) (test 9.34 K/ L 1.56-6.13 laag=034) LYMPHOCYTES ABSOLUTE COUNT (BEAKER) (test 0.37 K/ L 1.18-3.74 tfxg=681) MONOCYTES ABSOLUTE COUNT (BEAKER) (test 0.45 K/ L 0.24-0.36 louy=001) EOSINOPHILS ABSOLUTE COUNT (BEAKER) (test 0.00 K/ L 0.04-0.36 zbvx=478) BASOPHILS ABSOLUTE COUNT (BEAKER) (test 0.01 K/ L 0.01-0.08 atbp=582) IMMATURE GRANULOCYTES-RELATIVE PERCENT (BEAKER) 1 % 0-1 (test gsqg=3644) [id number] 13:17:00 Test Item Value Reference Range Comments PROCALCITONIN (BEAKER) (test wdwn=8813) 0.26 ng/mL <0.05 SEPSIS RISK (ng/mL)Low: 0.05-0.50Intermediate: 0.51-2.00High: & gt;=2.01POCT-GLUCOSE [id number] 11:40:00 Test Item Value Reference Range Comments POC-GLUCOSE METER (BEAKER) 162 mg/dL 70-110 TESTED AT [address] (test kqlv=0438) [place] [id number] POCT-GLUCOSE [id number] 07:20:00 Test Item Value Reference Range Comments POC-GLUCOSE METER (BEAKER) 97 mg/dL 70-110 TESTED AT [address] (test blat=0769) [facility] [address] CBC W/PLT COUNT & AUTO [id number] 06:11:00 Test Item Value Reference Range Comments WHITE BLOOD CELL COUNT (BEAKER) (test somd=148) 7.2 K/ L 3.5-10.5 RED BLOOD CELL COUNT (BEAKER) (test znay=970) 3.77 M/ L 3.93-5.22 HEMOGLOBIN (BEAKER) (test gbpa=952) 10.1 GM/DL 11.2-15.7 HEMATOCRIT (BEAKER) (test yqhv=790) 32.9 % 34.1-44.9 MEAN CORPUSCULAR VOLUME (BEAKER) (test pkjk=804) 87.3 fL 79.4-94.8 MEAN CORPUSCULAR HEMOGLOBIN (BEAKER) (test 26.8 pg 25.6-32.2 buic=952) MEAN CORPUSCULAR HEMOGLOBIN CONC (BEAKER) (test 30.7 GM/DL 32.2-35.5 tlia=142) RED CELL DISTRIBUTION WIDTH (BEAKER) (test 16.2 % 11.7-14.4 dbnc=256) PLATELET COUNT (BEAKER) (test gebs=727) 222 K/CU MM 150-450 MEAN PLATELET VOLUME (BEAKER) (test ozhq=264) 11.1 fL 9.4-12.3 NUCLEATED RED BLOOD CELLS (BEAKER) (test 0 /100 WBC 0-0 zvhy=199) NEUTROPHILS RELATIVE PERCENT (BEAKER) (test 90 % phpr=947) LYMPHOCYTES RELATIVE PERCENT (BEAKER) (test 7 % ljxa=075) MONOCYTES RELATIVE PERCENT (BEAKER) (test 2 % cila=755) EOSINOPHILS RELATIVE PERCENT (BEAKER) (test 0 % bmlf=528) BASOPHILS RELATIVE PERCENT (BEAKER) (test 0 % stdt=856) NEUTROPHILS ABSOLUTE COUNT (BEAKER) (test 6.45 K/ L 1.56-6.13 vanr=742) LYMPHOCYTES ABSOLUTE COUNT (BEAKER) (test 0.53 K/ L 1.18-3.74 ifhk=628) MONOCYTES ABSOLUTE COUNT (BEAKER) (test 0.16 K/ L 0.24-0.36 vpfn=261) EOSINOPHILS ABSOLUTE COUNT (BEAKER) (test 0.00 K/ L 0.04-0.36 vnpp=821) BASOPHILS ABSOLUTE COUNT (BEAKER) (test 0.01 K/ L 0.01-0.08 xnxl=823) IMMATURE GRANULOCYTES-RELATIVE PERCENT (BEAKER) 1 % 0-1 (test lwmv=2831) [id number] 05:50:00 Test Item Value Reference Range Comments MAGNESIUM (BEAKER) (test ewbv=621) 1.4 mg/dL 1.6-2.6 COMPREHENSIVE METABOLIC [id number] 05:50:00 Test Item Value Reference Range Comments TOTAL PROTEIN (BEAKER) 5.8 gm/dL 6.0-8.3 (test fsqe=597) ALBUMIN (BEAKER) (test 2.9 g/dL 3.5-5.0 rhbi=1390) ALKALINE PHOSPHATASE 130 U/L 40-150 (BEAKER) (test zhln=615) BILIRUBIN TOTAL (BEAKER) 0.4 mg/dL 0.2-1.2 (test gvqb=921) SODIUM (BEAKER) (test 138 meq/L 136-145 iyki=963) POTASSIUM (BEAKER) (test 3.0 meq/L 3.5-5.1 ydof=315) CHLORIDE (BEAKER) (test 93 meq/L 98-107 aeln=537) CO2 (BEAKER) (test 32 meq/L 22-29 oiac=458) BLOOD UREA NITROGEN 19 mg/dL 7-21 (BEAKER) (test dodh=665) CREATININE (BEAKER) (test 0.63 mg/dL 0.57-1.25 gjvx=456) GLUCOSE RANDOM (BEAKER) 104 mg/dL 70-105 (test befx=126) CALCIUM (BEAKER) (test 8.3 mg/dL 8.4-10.2 qxuv=977) AST (SGOT) (BEAKER) (test 25 U/L 5-34 cksx=637) ALT (SGPT) (BEAKER) (test 29 U/L 6-55 cdbj=377) EGFR (BEAKER) (test 96 mL/min/1.73 sq m ESTIMATED GFR IS NOT gjsf=5765) ACCURATE CREATININE CLEARANCE IN PREDICTING GLOMERULAR FILTRATION RATE. ESTIMATED GFR IS NOT APPLICABLE FOR DIALYSIS PATIENTS. BLOOD GAS, [id number] 05:06:00 Test Item Value Reference Range Comments PH ARTERIAL (BEAKER) (test qdio=505) 7.48 7.35-7.45 PCO2 ARTERIAL (BEAKER) (test dhut=382) 49 mmHg 35-45 PO2 ARTERIAL (BEAKER) (test gnii=955) 77 mmHg 80-90 O2 SATURATION ARTERIAL (BEAKER) (test jfmg=416) 96.0 % 96.0-97.0 HCO3 ARTERIAL (BEAKER) (test umdu=025) 36 mmol/L 21-29 BASE EXCESS ARTERIAL (BEAKER) (test mgtv=911) 10.7 mmol/L -2.0-3.0 PATIENT TEMPERATURE (BEAKER) (test hbzv=3012) 37.0 C FIO2 (BEAKER) (test xufc=7217) 24.0 % HEPATITIS C [id number] 01:28:00 Test Item Value Reference Range Comments HEPATITIS C ANTIBODY (BEAKER) (test aioc=290) Equivocal Nonreactive RAPID INFLUENZA A&B [id number] 22:53:00 Test Item Value Reference Range Comments RAPID INFLUENZA A AG (BEAKER) (test Negative Negative, Inconclusive ifyt=5813) RAPID INFLUENZA B AG (BEAKER) (test Negative Negative, Inconclusive fknf=1953) URINALYSIS W/ [id number] 22:38:00 Test Item Value Reference Range Comments COLOR (BEAKER) (test ocoa=719) Yellow CLARITY (BEAKER) (test csnr=687) Clear SPECIFIC GRAVITY UA (BEAKER) (test gmsr=723) 1.019 1.001-1.035 PH UA (BEAKER) (test thar=350) 5.0 5.0-8.0 PROTEIN UA (BEAKER) (test gcty=831) 10 mg/dL Negative GLUCOSE UA (BEAKER) (test hwyu=824) Negative Negative KETONES UA (BEAKER) (test hool=731) 80 mg/dL Negative BILIRUBIN UA (BEAKER) (test hkty=752) Negative Negative BLOOD UA (BEAKER) (test fghd=375) Negative Negative NITRITE UA (BEAKER) (test fotu=987) Negative Negative LEUKOCYTE ESTERASE UA (BEAKER) (test fdqs=647) Small Negative UROBILINOGEN UA (BEAKER) (test pcar=851) 0.2 mg/dL 0.2-1.0 RBC UA (BEAKER) (test rpyu=509) 1 /HPF WBC UA (BEAKER) (test peis=582) 9 /HPF BACTERIA (BEAKER) (test xsap=301) Rare MUCUS (BEAKER) (test uugw=3180) Rare SQUAMOUS EPITHELIAL (BEAKER) (test hobh=008) 1 /HPF CASTS (BEAKER) (test ctbu=2518) 2 /LPF CRYSTALS, URINE (BEAKER) (test crvf=1473) Rare SOURCE(BEAKER) (test qhtd=5660) Urine, [place] HEPATITIS B CORE ANTIBODY, [id number] 22:36:00 Test Item Value Reference Range Comments HEPATITIS B CORE TOTAL ANTIBODY (BEAKER) (test Nonreactive Nonreactive sfgr=605) HIV-1 ANTIGEN WITH HIV-1/2 [id number] 22:36:00 Test Item Value Reference Range Comments HIV-1 ANTIGEN WITH HIV 1\T\2 ANTIBODY (2) Nonreactive Nonreactive (BEAKER) (test duvp=6753) PROTHROMBIN [id number] 22:34:00 Test Item Value Reference Range Comments PROTIME (BEAKER) (test tonl=819) 14.3 seconds 11.7-14.7 INR (BEAKER) (test vedq=909) 1.1 <=5.9 RECOMMENDED COUMADIN/WARFARIN INR THERAPY RANGESSTANDARD DOSE: 2.0 - 3.0 Includes: PROPHYLAXIS forvenous thrombosis, systemic embolization; TREATMENT for venous thrombosis and/or pulmonary embolus.HIGH RISK: Target INR is 2.5-3.5 for patients with mechanical heart valves.TROPONIN [id number] 22:24:00 Test Item Value Reference Range Comments TROPONIN I (BEAKER) (test vuyn=909) 0.19 ng/mL 0.00-0.03 Troponin I (TnI) levels [...] NATRIURETIC PEPTIDE (BEAKER) (test 364 pg/mL 0-100 eblv=022) [id number] 22:14:00 Test Item Value Reference Range Comments PHOSPHORUS (BEAKER) (test irzn=868) 3.4 mg/dL 2.3-4.7 [id number] 22:14:00 Test Item Value Reference Range Comments MAGNESIUM (BEAKER) (test fpex=508) 1.7 mg/dL 1.6-2.6 COMPREHENSIVE METABOLIC [id number] 22:14:00 Test Item Value Reference Range Comments TOTAL PROTEIN (BEAKER) 5.5 gm/dL 6.0-8.3 (test zpez=972) ALBUMIN (BEAKER) (test 2.9 g/dL 3.5-5.0 ewcu=8872) ALKALINE PHOSPHATASE 134 U/L 40-150 (BEAKER) (test qzvm=968) BILIRUBIN TOTAL (BEAKER) 0.4 mg/dL 0.2-1.2 (test mzjh=614) SODIUM (BEAKER) (test 138 meq/L 136-145 aupw=879) POTASSIUM (BEAKER) (test 3.6 meq/L 3.5-5.1 fuvu=177) CHLORIDE (BEAKER) (test 97 meq/L 98-107 kcgv=729) CO2 (BEAKER) (test 31 meq/L 22-29 joux=048) BLOOD UREA NITROGEN 20 mg/dL 7-21 (BEAKER) (test mphy=701) CREATININE (BEAKER) (test 0.58 mg/dL 0.57-1.25 ayqk=380) GLUCOSE RANDOM (BEAKER) 75 mg/dL 70-105 (test vrby=829) CALCIUM (BEAKER) (test 8.3 mg/dL 8.4-10.2 csqb=394) AST (SGOT) (BEAKER) (test 31 U/L 5-34 vjoa=385) ALT (SGPT) (BEAKER) (test 30 U/L 6-55 eevi=065) EGFR (BEAKER) (test 106 mL/min/1.73 sq ESTIMATED GFR IS NOT oyxp=7490) m ACCURATE CREATININE CLEARANCE IN PREDICTING GLOMERULAR FILTRATION RATE. ESTIMATED GFR IS NOT APPLICABLE FOR DIALYSIS PATIENTS. CBC W/PLT COUNT & AUTO [id number] 22:11:00 Test Item Value Reference Range Comments WHITE BLOOD CELL COUNT (BEAKER) (test cnhl=046) 6.6 K/ L 3.5-10.5 RED BLOOD CELL COUNT (BEAKER) (test rrbz=016) 3.51 M/ L 3.93-5.22 HEMOGLOBIN (BEAKER) (test ndkj=775) 9.7 GM/DL 11.2-15.7 HEMATOCRIT (BEAKER) (test vptp=797) 31.6 % 34.1-44.9 MEAN CORPUSCULAR VOLUME (BEAKER) (test sdny=734) 90.0 fL 79.4-94.8 MEAN CORPUSCULAR HEMOGLOBIN (BEAKER) (test 27.6 pg 25.6-32.2 btsq=202) MEAN CORPUSCULAR HEMOGLOBIN CONC (BEAKER) (test 30.7 GM/DL 32.2-35.5 imic=301) RED CELL DISTRIBUTION WIDTH (BEAKER) (test 16.0 % 11.7-14.4 iprw=472) PLATELET COUNT (BEAKER) (test jhuf=334) 197 K/CU MM 150-450 MEAN PLATELET VOLUME (BEAKER) (test zobv=942) 11.0 fL 9.4-12.3 NUCLEATED RED BLOOD CELLS (BEAKER) (test 0 /100 WBC 0-0 xqxt=491) NEUTROPHILS RELATIVE PERCENT (BEAKER) (test 92 % hefk=489) LYMPHOCYTES RELATIVE PERCENT (BEAKER) (test 6 % riiu=850) MONOCYTES RELATIVE PERCENT (BEAKER) (test 1 % ttqz=322) EOSINOPHILS RELATIVE PERCENT (BEAKER) (test 0 % lohs=401) BASOPHILS RELATIVE PERCENT (BEAKER) (test 0 % gzjg=414) NEUTROPHILS ABSOLUTE COUNT (BEAKER) (test 6.08 K/ L 1.56-6.13 rtkg=530) LYMPHOCYTES ABSOLUTE COUNT (BEAKER) (test 0.40 K/ L 1.18-3.74 jfbb=378) MONOCYTES ABSOLUTE COUNT (BEAKER) (test 0.08 K/ L 0.24-0.36 hfbc=266) EOSINOPHILS ABSOLUTE COUNT (BEAKER) (test 0.00 K/ L 0.04-0.36 wlyz=239) BASOPHILS ABSOLUTE COUNT (BEAKER) (test 0.01 K/ L 0.01-0.08 dxye=140) IMMATURE GRANULOCYTES-RELATIVE PERCENT (BEAKER) 1 % 0-1 (test dqsz=7839) BLOOD GAS, [id number] 20:15:00 Test Item Value Reference Range Comments PH ARTERIAL (BEAKER) (test yxsx=693) 7.40 7.35-7.45 PCO2 ARTERIAL (BEAKER) (test qgcn=170) 58 mmHg 35-45 PO2 ARTERIAL (BEAKER) (test cfvw=057) 89 mmHg 80-90 O2 SATURATION ARTERIAL (BEAKER) (test xkle=375) 96.6 % 96.0-97.0 HCO3 ARTERIAL (BEAKER) (test dbmd=194) 35 mmol/L 21-29 BASE EXCESS ARTERIAL (BEAKER) (test vpfl=191) 8.7 mmol/L -2.0-3.0 PATIENT TEMPERATURE (BEAKER) (test pzwp=0852) 37.0 C FIO2 (BEAKER) (test fqvx=5499) 24.0 % RAD, CHEST, 1 VIEW, NON [id number] 19:30:00Post-intubationReason for exam:-& gt;transfer from OSH, intubated/respiratory [...] MDReport Verified Date/Time: 02/04/2017 19: 30:53 Reading Location:[address] Reading Room
--- OUTSIDE RECORDS SUMMARY | 2018-06-03 08:39 | XMS REPORT ---
[...] End Status Dosage System Date Date Clonazepam [facility] 89193115309 1 MG Orally Active 1 tablet Once a day Creon [facility] 97736061048 61651-38054 Active not defined UNIT Orally Triamcinolone ND 83956241023 0.5 % August Active 1 application Acetonide Externally 11, to affected Twice a day 2017 area Metoprolol ND 05549161480 25 MG Orally Active 1 tablet with Tartrate Twice a day food Albuterol-Ipratro ND 0 2.5-0.5 MG/3ML Active 3 ml pium Inhalation every 6 hrs ProAir RespiClick [facility] 28958433353 108 (90 Base) Active 2 puffs as MCG/ACT needed Inhalation every 6 hrs Brovana [facility] 70568704309 15 MCG/2ML Active 2 ml Inhalation Twice a day Protonix [facility] 49090266024 40 MG Active 1 EACH ONCE A DAY ORALLY Metformin HCl [facility] 02161719650 500 MG Orally Active 1 tablet with Twice a day meals Magnesium Oxide [facility] 65135168029 400 MG Orally Active 1 tablet as Once a day needed Pantoprazole [facility] 00910756593 40 MG Orally May Active 1 tablet Sodium Once a day 2017 Methadone HCl [facility] 99845253602 10 MG Orally Active 1 tablet Once a day Lasix [facility] 49988149749 20 MG Orally Active 1 tablet Once a day Medrol [facility] 41891468188 4 MG Orally August Active as directed 2017 Prolia [facility] 79738355937 60 MG/ML Active not defined Subcutaneous MiraLax [facility] 59911944552 - Orally Once Active 1 packet a day mixed with 8 ounces of fluid Ergocalciferol [facility] 54529935984 04991 UNIT Active 1 capsule Orally Results No Known Results Summary Purpose eClinicalWorks Submission
--- OUTSIDE RECORDS SUMMARY | 2018-06-03 08:39 | XMS REPORT ---
:1955 Author Organization eClinicalWorks Care Team Providers Name Role Phone Ahuja, Na Provider Role Unavailable Allergies, Adverse Reactions, Alerts Substance Reaction Event Type Keflex Info Not Available Drug Allergy Cyclobenzaprine HCl Info Not Available Drug Allergy Problems Problem Type Condition Code Onset Dates Condition Status Assessment Blood tests for routine general Z00.00 Active physical examination Assessment Encounter for medication monitoring Z51.81 Active Assessment Screening for cardiovascular Z13.6 Active condition Assessment GERD (gastroesophageal reflux K21.9 Active disease) Assessment Nicotine dependence with current F17.200 Active use Assessment Osteoporosis M81.0 Active Problem Back pain M54.9 Active Assessment COPD (chronic obstructive pulmonary J44.9 Active disease) Problem Insomnia G47.00 Active Assessment Lower extremity edema R60.0 Active Problem Osteoporosis M81.0 Active Problem COPD (chronic obstructive pulmonary J44.9 Active disease) Problem GERD (gastroesophageal reflux K21.9 Active disease) Problem Overactive bladder N32.81 Active Problem Nicotine dependence with current F17.200 Active use Assessment Urinary incontinence in female R32 Active Problem Urinary incontinence in female R32 Active Assessment Kyphosis M40.209 Active Problem Nicotine dependence F17.200 Active Problem Degeneration of lumbosacral M51.37 Active intervertebral disc Problem Other chronic pain G89.29 Active Problem Rotator cuff tear arthropathy of M12.811 Active right shoulder Problem Kyphosis M40.209 Active Problem Lower extremity edema R60.0 Active Problem Depression with anxiety F41.8 Active Problem Iron deficiency anemia D50.9 Active Problem Constipation K59.00 Active Problem Lymphedema I89.0 Active Problem Chronic pancreatitis K86.1 Active Problem DJD (degenerative joint disease) M19.90 Active Medications Medication Code Code Instructions Start End Status Dosage System Date Date Pantoprazole [facility] 96204528576 40 MG Orally May Active 1 tablet Sodium Once a day 2017 MiraLax [facility] 77759982220 - Orally Once Active 1 packet a day mixed with 8 ounces of fluid Clonazepam [facility] 70007026039 1 MG Orally Active 1 tablet Once a day Brovana [facility] 28897793608 15 MCG/2ML Active 2 ml Inhalation Twice a day Ergocalciferol [facility] 11928318681 56841 UNIT Active 1 capsule Orally Anoro Ellipta ND 39169292154 62.5mcg/25 mcg Apr 25, Active 1 puff Orally once a 2018 day in AM Triamcinolone [facility] 30159567317 0.5 % August Active 1 application Acetonide Externally 11, to affected Twice a day 2017 area Creon [facility] 58531009172 19767-10829 Active not defined UNIT Orally Metformin HCl [facility] 29309116735 500 MG Orally Active 1 tablet with Twice a day meals Protonix [facility] 89941276430 40 MG Active 1 EACH ONCE A DAY ORALLY Myrbetriq ND 49190700043 25 MG Orally Apr 25, Active 1 tablet Once a day 2018 Lasix [facility] 64869916178 20 MG Orally Active 1 tablet Once a day Methadone HCl [facility] 02245578040 10 MG Orally Active 1 tablet Once a day Protonix [facility] 70739729032 40 Active 1 EACH ONCE A DAY ORALLY Metoprolol [facility] 71844040550 25 MG Orally Active 1 tablet with Tartrate Twice a day food Albuterol-Ipratro [facility] 0 2.5-0.5 MG/3ML Active 3 ml pium Inhalation every 6 hrs Prolia [facility] 45231812768 60 MG/ML Active not defined Subcutaneous ProAir RespiClick [facility] 33478241999 108 (90 Base) Active 2 puffs as MCG/ACT needed Inhalation every 6 hrs Magnesium Oxide [facility] 23824428210 400 MG Orally Active 1 tablet as Once a day needed Results No Known Results Summary Purpose eClinicalWorks Submission
--- OUTSIDE RECORDS SUMMARY | 2018-06-03 08:39 | XMS REPORT ---
[...] Dosage System Date Date Methadone HCl ND 20514635565 10 MG Orally Active 1 tablet Once a day Protonix [facility] 85063975209 40 MG Active 1 EACH ONCE A DAY ORALLY Brovana ND 39304586668 15 MCG/2ML Active 2 ml Inhalation Twice a day ProAir RespiClick [facility] 88677189052 108 (90 Base) Active 2 puffs as MCG/ACT needed Inhalation every 6 hrs Metoprolol ND 95108843681 25 MG Orally Active 1 tablet Tartrate Twice a day with food Pantoprazole ND 34567878970 40 MG Orally March Active 1 tablet Sodium Once a day 2017 Albuterol-Ipratro ND 0 2.5-0.5 MG/3ML Active 3 ml pium Inhalation every 6 hrs Magnesium Oxide ND 54433311188 400 MG Orally Active 1 tablet Once a day as needed Prolia [facility] 15993448588 60 MG/ML Active not Subcutaneous defined MiraLax [facility] 43996476609 - Orally Once a Active 1 packet day mixed with 8 ounces of fluid Ergocalciferol [facility] 71695584043 81819 UNIT Active 1 capsule Orally Metformin HCl [facility] 95100116940 500 MG Orally Active 1 tablet Twice a day with meals Clonazepam [facility] 72535466238 1 MG Orally Active 1 tablet Once a day Creon [facility] 65706727600 05948-14585 Active not UNIT Orally defined Lasix [facility] 78922107278 20 MG Orally Active 1 tablet Once a day Results No Known Results Summary Purpose eClinicalWorks Submission
--- OUTSIDE RECORDS SUMMARY | 2018-06-03 08:40 | XMS REPORT ---
:1955 Author Organization eClinicalWorks Care Team Providers Name Role Phone Ahuja, Na Provider Role Unavailable Allergies No Known Allergies Problems Problem Type Condition Code Onset Dates Condition Status Problem Osteoporosis M81.0 Active Problem COPD (chronic obstructive pulmonary J44.9 Active disease) Problem GERD (gastroesophageal reflux K21.9 Active disease) Problem Overactive bladder N32.81 Active Problem Nicotine dependence with current F17.200 Active use Problem Urinary incontinence in female R32 Active Problem Nicotine dependence F17.200 Active Problem [...] Active Problem Chronic pancreatitis K86.1 Active Problem Back pain M54.9 Active Problem DJD (degenerative joint disease) M19.90 Active Problem Insomnia G47.00 Active Medications No Known Medications Results No Known Results Summary Purpose eClinicalWorks Submission
[2018-06-03] MEDS ORDERED: MORPHINE 2 MG/ML SYR ONE (09:53)
[2018-06-03] MEDS ORDERED: NA CHLORIDE 0.9% 1,000 ML ONE (09:54)
[2018-06-03 10:08] LABS: BUN Blood Urea Nitrogen 11 mg/dL (7-18); Bicarbonate 33 mmol/L (21-32); Glucose Level 76 mg/dL (74-106); Potassium 4.5 mmol/L (3.5-5.1); Sodium Level 138 mmol/L (136-145)
--- NOTE | 2018-06-03 10:54 | RAD REPORT ---
EXAM DESCRIPTION: RAD - Pelvis - 06/03/2018 10:15 am CLINICAL HISTORY: left leg pain Pain and swelling COMPARISON: Pelvis dated 05/01/2018; Pelvis Wo Cont dated 05/01/2018; Hip Right 1 View dated 05/01/2018 FINDINGS: Advanced osteopenia is seen. Hardware is present in both femurs. An acute fracture is not evident.
[2018-06-03 10:57] LABS: Absolute Lymphocytes (CBC) 0.8 K/uL (0.7-4.9); Absolute Monocytes 0.7 K/uL (0.1-1.3); Absolute Neutrophil 6.1 K/uL (1.8-8.0); Basophils % 0.8 % (0-1.3); Eosinophils % 1.4 % (0-4.4); Hematocrit 35.1 % (36.0-45.0); Lymphocytes % 10.2 % (15.3-44.8); MPV 9.7 fL (7.6-11.3); Monocytes % 9.3 % (3.3-12.3); RBC Red Blood Cell Count 4.35 M/uL (3.86-4.86)
--- NOTE | 2018-06-03 10:57 | RAD REPORT ---
EXAM DESCRIPTION: RAD - Femur Left - 06/03/2018 10:24 am CLINICAL HISTORY: PAIN COMPARISON: None FINDINGS: Left femur and left tibia/fibula - multiple projections are submitted Diffuse osteopenia is seen. Small calcaneal spurs evident. Hardware is in place in proximal left femu r. There is evidence of a suprapatellar joint effusion with possible lipohemarthrosis hand soft tissu e swelling about the knee. Detailed assessment of the knee is not possible on this study. Consider de dicated left knee radiographs for further assessment.
[2018-06-03 10:58] LABS: Protime INR 1.05
[2018-06-03] MEDS ORDERED: KETOROLAC 30 MG/ML INJ ONE (12:20)
--- NOTE | 2018-06-03 12:42 | RAD REPORT ---
EXAM DESCRIPTION: US - Extremity Venous Uni Ltd - 06/03/2018 12:25 pm CLINICAL HISTORY: PAIN Leg swelling and edema. COMPARISON: Extremity Venous Uni Ltd dated 02/15/2018 FINDINGS: Left lower extremity venous system was interrogated with Doppler technique. Normal flow, c ompressibility and augmentation was noted. There is no DVT present. IMPRESSION: No evidence of left lower extremity deep venous thrombosis.
--- NOTE | 2018-06-03 13:10 | RAD REPORT ---
EXAM DESCRIPTION: RAD - Knee Left 3 View - 06/03/2018 12:52 pm CLINICAL HISTORY: PAIN COMPARISON: Knee Left 3 view dated 12/13/2012; Knee Left 2 View dated 08/14/2012 FINDINGS: The bones are demineralized. Chondrocalcinosis is seen involving the menisci with a small to moderate joint effusion. No acute fracture or dislocation is evident. If pain persists or progress es, MR imaging followup would be recommended.
[2018-06-03] MEDS ORDERED: FENTANYL CITR 100 MCG/2 ML ONE (13:32)
[2018-06-03] MEDS ORDERED: DIAZEPAM 10 MG/2 ML INJ SYRINGE ONE (13:33)
--- NOTE | 2018-06-03 13:41 | EDPHYS ---
Physician Documentation [facility] Name: Alee Humphrey Age: 63 yrs Sex: Female : 1955 Arrival Date: 06/03/2018 Time: 08:36 Bed 14 Private MD: ED Physician Lan Lizarraga HPI: 06/03 09:04 This 63 yrs old Female presents to ER via EMS with complaints of Knee Pain. cp 09:04 The patient presents with pain, that is chronic, tenderness. The complaints affect the cp right leg. 09:04 Context: resulted from an unknown cause, the patient is not able to bear weight, must cp have assistance, Problem is a result from a previous injury: Yes. left hip and right hip fractures. Onset: The symptoms/episode began/occurred this morning. Associated signs and symptoms: Pertinent positives: calf tenderness, Pertinent negatives fever, swelling, warmth, deformity. Treatment prior to arrival includes: no previous treatment. Historical: - Allergies: 08:44 Cephalexin Monohydrate; tw2 08:44 Flexeril; tw2 08:44 Keflex (Vomiting); tw2 08:44 cyclobenzaprine HCl (Vomiting); tw2 - Home Meds: 08:44 baclofen 10 mg Oral tab 1 tab every 6 hrs PRN for pain [Active]; clonazepam 1 mg Oral tw2 tab at bedtime [Active]; tiotropium bromide inhalation [Active]; Hydrochlorothiazide Oral [Active]; methadone 10 mg Oral tab 4 times a day PRN for pain [Active]; - PMHx: 08:44 CHF; chronic back pain; COPD; Anxiety; Depression; tw2 - PSHx: 08:44 multiple back surgeries; abdomen; tw2 - Immunization history:: Adult Immunizations. - Social history:: Smoking status: Patient uses tobacco products, smokes one pack cigarettes per day. - Ebola Screening: : Patient denies travel to an Ebola-affected area in the 21 days before illness onset. ROS: 09:10 Constitutional: Negative for body aches, chills, fever, poor PO intake. cp 09:10 Eyes: Negative for injury, pain, redness, and discharge. cp 09:10 Cardiovascular: Negative for chest pain, edema, palpitations. 09:10 Respiratory: Negative for cough, shortness of breath, wheezing. 09:10 Abdomen/GI: Negative for abdominal pain, nausea, vomiting, and diarrhea. 09:10 MS/extremity: Positive for pain, tenderness, of the left leg, Negative for injury or acute deformity, paresthesias. 09:10 Skin: Negative for cellulitis, rash. 09:10 Neuro: Negative for altered mental status, headache, weakness. 09:10 All other systems are negative. Exam: 09:20 Constitutional: The patient appears in no acute distress, alert, awake, cp non-diaphoretic, non-toxic, well developed, frail, uncomfortable. 09:20 Head/Face: Normocephalic, atraumatic. cp 09:20 Eyes: Periorbital structures: appear normal, Pupils: equal, round, and reactive to light and accomodation, Conjunctiva: normal, no exudate, no injection, Sclera: no appreciated abnormality, Lids and lashes: appear normal, bilaterally. 09:20 ENT: External ear(s): are unremarkable, Nose: is normal, Mouth: Lips: dry, Oral mucosa: pink and intact, moist, Posterior pharynx: Airway: no evidence of obstruction, patent. 09:20 Neck: ROM/movement: is normal, is supple, without pain, no range of motions limitations, no nuchal rigidity. 09:20 Chest/axilla: Inspection: normal, Palpation: is normal, no crepitus, no tenderness. 09:20 Cardiovascular: Rate: normal, Rhythm: regular, Edema: is not appreciated, JVD: is not appreciated. 09:20 Respiratory: the patient does not display signs of respiratory distress, Respirations: normal, no use of accessory muscles, no retractions, no splinting, no tachypnea, labored breathing, is not present, Breath sounds: are clear throughout, no decreased breath sounds, no stridor, no wheezing. 09:20 Abdomen/GI: Inspection: abdomen appears normal, Bowel sounds: active, all quadrants, Palpation: abdomen is soft and non-tender, in all quadrants. 09:20 Back: pain, is absent, ROM is normal. 09:20 Musculoskeletal/extremity: Extremities: grossly normal except: noted in the left leg: decreased ROM, pain, tenderness, There is no evidence of deformity, erythema, ROM: limited passive range of motion due to pain, in the left hip and left knee, Pulses: noted to be 2+ in the left dorsalis pedis artery, Calf tenderness, of the left lower extremeity, Edema, is not appreciated, Joints: All joints are normal except the left knee displays painful range of motion, swelling, tenderness, the left hip displays painful range of motion, tenderness. 09:20 Skin: cellulitis, is not appreciated, no rash present. 09:20 Neuro: Orientation: to person, place \T\ time. Mentation: is normal. Vital Signs: 08:39 BP 112 / 77; Pulse 74; Resp 17; Temp 98.1(O); Pulse Ox 91% on R/A; Weight 45.36 kg (R); tw2 Height 5 ft. 1 in. (154.94 cm); Pain 10/10; 09:30 BP 111 / 82; Pulse 78; Resp 18; Pulse Ox 95% ; rb1 12:16 BP 112 / 77; Pulse 77; Resp 16; Pulse Ox 95% on R/A; rb1 13:16 BP 112 / 71; Pulse 82; Resp 17; Pulse Ox 95% on R/A; Pain 8/10; rb1 14:15 BP 108 / 78; Pulse 77; Resp 16; Pulse Ox 96% on R/A; rb1 15:15 BP 111 / 79; Pulse 73; Resp 15; Pulse Ox 96% on R/A; Pain 8/10; rb1 08:39 Body Mass Index 18.89 (45.36 kg, 154.94 cm) tw2 08:39 pt w/Hx of COPD tw2 MDM: 09:00 Patient medically screened. cp 10:00 Differential diagnosis: closed fracture, tendonitis, DVT, cellulitis, dislocation. cp 13:38 Data reviewed: vital signs, nurses notes, radiologic studies, plain films, ultrasound. cp 13:38 Test interpretation: by ED physician or midlevel provider: plain radiologic studies. 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 Response to treatment: the patient's symptoms have markedly improved after treatment, and as a result, I will discharge patient. ED course: VSS. Radiology studies negative for acute findings. Pain improved. Will discharge to home for continued monitoring. 06/03 09:07 Order name: CBC with Diff; Complete Time: 11:01 cp 06/03 11:02 Interpretation: Normal except: HGB 10.9; HCT 35.1; MCH 25.1; MCHC 31.1; PLT 151; RDW cp 18.1; HILARIA% 78.3; LYM% 10.2. 06/03 09:07 Order name: BMP; Complete Time: 10:49 cp 06/03 10:49 Interpretation: Normal except: CO2 33; CRE 0.50; CA 8.0. cp 06/03 09:07 Order name: XRAY Pelvis; Complete Time: 11:01 cp 06/03 09:07 Order name: XRAY Femur LEFT; Complete Time: 11:01 cp 06/03 09:07 Order name: XRAY Tib Fib LEFT cp 06/03 09:07 Order name: PT-INR; Complete Time: 11:01 cp 06/03 09:07 Order name: IV; Complete Time: 09:45 cp 06/03 10:49 Order name: US Extremity Venous Unilateral Ltd cp 06/03 11:03 Order name: XRAY Knee LEFT 3 view cp 06/03 09:48 Order name: Labs - recollect needed; Complete Time: 11:58 bd 06/03 12:40 Order name: Misc. Order: ambulate patient; Complete Time: 15:00 cp Administered Medications: 09:44 Drug: NS 0.9% 500 ml Route: IV; Rate: bolus; Site: left antecubital; rb1 09:44 Drug: morphine 2 mg Route: IVP; Site: right antecubital; rb1 10:00 Follow up: Response: No adverse reaction; Pain is decreased rb1 12:15 Drug: TORadol 30 mg {Note: Difficult stick; had to wait for IV start..} Route: IVP; rb1 Site: right forearm; 12:30 Follow up: Response: No adverse reaction; Pain is decreased rb1 13:25 Drug: Diazepam 2 mg Route: IVP; Site: right forearm; rb1 13:40 Follow up: Response: No adverse reaction; Pain is decreased rb1 13:25 Drug: fentaNYL (PF) 25 mcg Route: IVP; Site: right forearm; rb1 13:40 Follow up: Response: No adverse reaction; Pain is decreased rb1 Disposition: 06/04 07:35 Co-signature as Attending Physician, Lan Lizarraga MD I agree with the assessment and [facility] plan of care. Disposition: 06/03/18 13:40 Discharged to Home. Impression: Pain in left leg. - Condition is Stable. - Discharge Instructions: Musculoskeletal Pain. - Prescriptions for Mobic 7.5 mg Oral Tablet - take 1 tablet by ORAL route once daily take with food; 20 tablet. - Medication Reconciliation Form, Thank You Letter, Antibiotic Education, Prescription Opioid Use form. - Follow up: Private Physician; When: 1 - 2 days; Reason: Recheck today's complaints. - Problem is new. - Symptoms have improved. Signatures: Dispatcher [employer] EDMS Geri Harper Corey, MD MD cha Page, Corey, PA PA cp Barber, Rebecca, RN RN rb1 Albina Crow RN RN tw2 Corrections: (The following items were deleted from the chart) 06/03 10:49 10:49 Normal except: CO2 33; CRE 0.50. cp cp 15:26 13:40 06/03/2018 13:40 Discharged to Home. Impression: Pain in left leg. Condition is rb1 Stable. Forms are Medication Reconciliation Form, Thank You Letter, Antibiotic Education, Prescription Opioid Use. Follow up: Private Physician; When: 1 - 2 days; Reason: Recheck today's complaints. Problem is new. Symptoms have improved. cp
--- NOTE | 2018-06-03 13:41 | ER ---
Nurse's Notes [facility] Name: Alee Humphrey Age: 63 yrs Sex: Female : 1955 Arrival Date: 06/03/2018 Time: 08:36 Bed 14 Private MD: Diagnosis: Pain in left leg Presentation: 06/03 08:36 Presenting complaint: EMS states: pt was walking from bed to chair, started having knee tw2 pain, sister tried to move her knee then pain went to 10/10, noted swelling in the LEFT knee, +pedal pulses, no deformity noted, Hx: COPD, normally 90-91 % RA, only uses o2 at night when sleeping. Transition of care: patient was not received from another setting of care. Onset of symptoms was June 03, 2018. Risk Assessment: Do you want to hurt yourself or someone else? Patient reports no desire to harm self or others. Initial Sepsis Screen: Does the patient meet any 2 criteria? No. Patient's initial sepsis screen is negative. Does the patient have a suspected source of infection? No. Patient's initial sepsis screen is negative. Care prior to arrival: None. 08:36 Method Of Arrival: EMS: [facility] tw2 08:36 Acuity: FARHAT 4 tw2 Triage Assessment: 08:40 General: Appears uncomfortable, slender, Behavior is fussy. Pain: Complains of pain in tw2 left knee. Historical: - Allergies: 08:44 Cephalexin Monohydrate; tw2 08:44 Flexeril; tw2 08:44 Keflex (Vomiting); tw2 08:44 cyclobenzaprine HCl (Vomiting); tw2 - Home Meds: 08:44 baclofen 10 mg Oral tab 1 tab every 6 hrs PRN for pain [Active]; clonazepam 1 mg Oral tw2 tab at bedtime [Active]; tiotropium bromide inhalation [Active]; Hydrochlorothiazide Oral [Active]; methadone 10 mg Oral tab 4 times a day PRN for pain [Active]; - PMHx: 08:44 CHF; chronic back pain; COPD; Anxiety; Depression; tw2 - PSHx: 08:44 multiple back surgeries; abdomen; tw2 - Immunization history:: Adult Immunizations. - Social history:: Smoking status: Patient uses tobacco products, smokes one pack cigarettes per day. - Ebola Screening: : Patient denies travel to an Ebola-affected area in the 21 days before illness onset. Screenin:40 Abuse screen: Denies threats or abuse. Nutritional screening: No deficits noted. tw2 Tuberculosis screening: No symptoms or risk factors identified. Fall Risk Secondary diagnosis (15 points) impaired mobility. Assessment: 08:40 General: Appears uncomfortable, slender, Behavior is fussy. Pain: Complains of pain in rb1 left knee Pain currently is 8 out of 10 on a pain scale. Neuro: Level of Consciousness is awake, alert, obeys commands, Oriented to person, place, time, situation. Cardiovascular: Capillary refill < 3 seconds is brisk in bilateral fingers. Respiratory: Airway is patent Respiratory effort is even, unlabored, Respiratory pattern is regular, symmetrical. GI: No signs and/or symptoms were reported involving the gastrointestinal system. : No signs and/or symptoms were reported regarding the genitourinary system. Derm: Skin is dry, Skin is dusky, bilateral lower extremities. Skin temperature is cool. Musculoskeletal: Range of motion: intact in all extremities. 12:17 Reassessment: Patient appears in no apparent distress at this time. Patient and/or rb1 family updated on plan of care and expected duration. Pain level reassessed. Patient is alert, oriented x 3, equal unlabored respirations, skin warm/dry/pink. 13:16 Reassessment: Patient appears in no apparent distress at this time. No changes from rb1 previously documented assessment. 13:50 Reassessment: Pt. reports being too dizzy to ambulate after being medicated. rb1 14:15 Reassessment: Patient appears in no apparent distress at this time. Patient and/or rb1 family updated on plan of care and expected duration. Pain level reassessed. Patient is alert, oriented x 3, equal unlabored respirations, skin warm/dry/pink. 14:20 Reassessment: discharge pending due to transportation. rb1 15:15 Reassessment: Patient appears in no apparent distress at this time. Pt. was able to rb1 ambulate to the restroom without difficulty. Pt. sister is here to transport the pt. home. Vital Signs: 08:39 BP 112 / 77; Pulse 74; Resp 17; Temp 98.1(O); Pulse Ox 91% on R/A; Weight 45.36 kg (R); tw2 Height 5 ft. 1 in. (154.94 cm); Pain 10/10; 09:30 BP 111 / 82; Pulse 78; Resp 18; Pulse Ox 95% ; rb1 12:16 BP 112 / 77; Pulse 77; Resp 16; Pulse Ox 95% on R/A; rb1 13:16 BP 112 / 71; Pulse 82; Resp 17; Pulse Ox 95% on R/A; Pain 8/10; rb1 14:15 BP 108 / 78; Pulse 77; Resp 16; Pulse Ox 96% on R/A; rb1 15:15 BP 111 / 79; Pulse 73; Resp 15; Pulse Ox 96% on R/A; Pain 8/10; rb1 08:39 Body Mass Index 18.89 (45.36 kg, 154.94 cm) tw2 08:39 pt w/Hx of COPD tw2 ED Course: 08:36 Patient arrived in ED. tw2 08:36 Placed in gown. Bed in low position. Side rails up X2. satellite project site monitor on. Pulse ox on. tw2 NIBP on. Warm blanket given. 08:39 Triage completed. tw2 08:40 Arm band placed on. tw2 09:00 Lan Walsh PA is PHCP. cp 09:00 Lan Lizarraga MD is Attending Physician. cp 09:08 Sommer Eason, RN is Primary Nurse. rb1 09:30 Missed attempt(s): 22 gauge in left antecubital area. Tech. [place] Bleeding tw2 controlled, band aid applied, catheter tip intact. Missed attempt(s): 22 gauge in left forearm. by Tech. juancho Bleeding controlled, band aid applied, catheter tip intact. 09:35 Inserted saline lock: 24 gauge in right antecubital area, using aseptic technique. tw2 Blood collected. 10:14 X-ray completed. Portable x-ray completed in exam room. Patient tolerated procedure la2 well. 10:15 XRAY Pelvis In Process Unspecified. EDMS 10:15 XRAY Femur LEFT In Process Unspecified. EDMS 10:15 XRAY Tib Fib LEFT In Process Unspecified. EDMS 11:38 Ultrasound completed. Patient tolerated well. sg3 11:58 Lab(s) recollected, by me, sent to lab. Inserted saline lock: 22 gauge in right ms forearm, using aseptic technique. Blood collected. 12:25 US Extremity Venous Unilateral Ltd In Process Unspecified. EDMS 12:52 XRAY Knee LEFT 3 view In Process Unspecified. EDMS 15:15 IV discontinued, intact, bleeding controlled, No redness/swelling at site. Pressure rb1 dressing applied. 15:24 No provider procedures requiring assistance completed. rb1 Administered Medications: 09:44 Drug: NS 0.9% 500 ml Route: IV; Rate: bolus; Site: left antecubital; rb1 09:44 Drug: morphine 2 mg Route: IVP; Site: right antecubital; rb1 10:00 Follow up: Response: No adverse reaction; Pain is decreased rb1 12:15 Drug: TORadol 30 mg {Note: Difficult stick; had to wait for IV start..} Route: IVP; rb1 Site: right forearm; 12:30 Follow up: Response: No adverse reaction; Pain is decreased rb1 13:25 Drug: Diazepam 2 mg Route: IVP; Site: right forearm; rb1 13:40 Follow up: Response: No adverse reaction; Pain is decreased rb1 13:25 Drug: fentaNYL (PF) 25 mcg Route: IVP; Site: right forearm; rb1 13:40 Follow up: Response: No adverse reaction; Pain is decreased rb1 Outcome: 13:40 Discharge ordered by MD. cp 15:25 Discharged to home via wheelchair, with family. rb1 15:25 Condition: stable 15:25 Discharge instructions given to patient, Instructed on discharge instructions, follow up and referral plans. medication usage, Demonstrated understanding of instructions, follow-up care, medications, Prescriptions given X 1. 15:26 Patient left the ED. rb1 Signatures: Dispatcher [employer] EDWA Bety Roe ms, Corey, PA PA cp Sommer Eason, RN RN rb1 Albina Crow RN RN tw2 Jessy Watson2 Marleni Hanson sg3 Corrections: (The following items were deleted from the chart) 15:05 09:44 morphine 2 mg IVP in right antecubital tw2 rb1 15:05 15:04 Response: No adverse reaction; Pain is decreased rb1 rb1
[2018-06-03 15:40] VITALS: TEMP 98.1
[2018-06-03 15:45] VITALS: BP 108/78; O2SAT 96
--- NOTE | 2018-06-04 12:57 | RAD REPORT ---
EXAM DESCRIPTION: RAD - Tib Fib Left - 06/03/2018 10:24 am CLINICAL HISTORY: PAIN COMPARISON: None FINDINGS: Left femur and left tibia/fibula - multiple projections are submitted Diffuse osteopenia is seen. Small calcaneal spurs evident. Hardware is in place in proximal left femu r. There is evidence of a suprapatellar joint effusion with possible lipohemarthrosis hand soft tissu e swelling about the knee. Detailed assessment of the knee is not possible on this study. Consider de dicated left knee radiographs for further assessment.
== END 2018-06-03 15:26 | disposition home or self-care (01) ==
LOC: ER 08:34
DX: M25.562 Pain in left knee (principal); J44.9 Chronic obstructive pulmonary disease, unspecified; I50.9 Heart failure, unspecified; Z88.1 Allergy status to other antibiotic agents
CPT/HCPCS: 85025; 80048; 36415; 85610; 72170; 73562; 73552; 73590; 93971; 99285; J3360; J3010; J2270; J7030

== ENCOUNTER 2018-07-26 17:05 | Emergency (ER) | payer OTHER ==
--- OUTSIDE RECORDS SUMMARY | 2018-07-26 17:08 | XMS REPORT | Clinical Summary ---
:1955 Author Organization [facility] Address [address] [place] [address] Care Team Providers Name Role Phone Manuel [...] Not on file Results Not on fileafter 07/25/2017 Insurance Payer Benefit Plan / Group Subscriber ID Type Phone Address MEDICARE MEDICARE A B xxxxxxxxxx Medicare MEDICAID MEDICAID [facility] xxxxxxxxx Medicaid Advance Directives For more information, please contact:[place] [phone] [place], [place] [phone] Code Status Date Activated Date Inactivated Comments Full Code 02/04/2017 6:02 PM 02/18/2017 1:43 AM This code status was determined by: Patient
--- OUTSIDE RECORDS SUMMARY | 2018-07-26 17:13 | XMS REPORT ---
:1955 [facility] Address [address] [place] [id number] Care Team Providers Name Role Phone LYNN [...] (BEAKER) (test 175 mg/dL 70-110 TESTED AT [address] mlom=3594) [facility] [address] POCT-GLUCOSE [id number] 08:27:00 Test Item Value Reference Range Comments POC-GLUCOSE METER (BEAKER) 83 mg/dL 70-110 TESTED AT [address] (test sggv=7180) [facility] [address] CBC W/PLT COUNT & AUTO [id number] 07:16:00 Test Item Value Reference Range Comments WHITE BLOOD CELL COUNT (BEAKER) (test davc=894) 17.1 K/ L 3.5-10.5 RED BLOOD CELL COUNT (BEAKER) (test qipo=492) 3.96 M/ L 3.93-5.22 HEMOGLOBIN (BEAKER) (test xyis=696) 10.7 GM/DL 11.2-15.7 HEMATOCRIT (BEAKER) (test sdzo=706) 34.8 % 34.1-44.9 MEAN CORPUSCULAR VOLUME (BEAKER) (test xwwd=323) 87.9 fL 79.4-94.8 MEAN CORPUSCULAR HEMOGLOBIN (BEAKER) (test 27.0 pg 25.6-32.2 ppgi=138) MEAN CORPUSCULAR HEMOGLOBIN CONC (BEAKER) (test 30.7 GM/DL 32.2-35.5 iydq=078) RED CELL DISTRIBUTION WIDTH (BEAKER) (test 15.6 % 11.7-14.4 csxz=635) PLATELET COUNT (BEAKER) (test bgpc=350) 334 K/CU MM 150-450 MEAN PLATELET VOLUME (BEAKER) (test tadi=066) 11.1 fL 9.4-12.3 NUCLEATED RED BLOOD CELLS (BEAKER) (test 0 /100 WBC 0-0 iugv=426) NEUTROPHILS RELATIVE PERCENT (BEAKER) (test 84 % zteq=699) LYMPHOCYTES RELATIVE PERCENT (BEAKER) (test 8 % qcfm=317) MONOCYTES RELATIVE PERCENT (BEAKER) (test 7 % shae=448) EOSINOPHILS RELATIVE PERCENT (BEAKER) (test 0 % taoz=075) BASOPHILS RELATIVE PERCENT (BEAKER) (test 0 % hgza=778) NEUTROPHILS ABSOLUTE COUNT (BEAKER) (test 14.26 K/ L 1.56-6.13 ajtj=001) LYMPHOCYTES ABSOLUTE COUNT (BEAKER) (test 1.43 K/ L 1.18-3.74 npek=270) MONOCYTES ABSOLUTE COUNT (BEAKER) (test 1.10 K/ L 0.24-0.36 rcce=624) EOSINOPHILS ABSOLUTE COUNT (BEAKER) (test 0.05 K/ L 0.04-0.36 mjfj=572) BASOPHILS ABSOLUTE COUNT (BEAKER) (test 0.01 K/ L 0.01-0.08 syof=921) IMMATURE GRANULOCYTES-RELATIVE PERCENT (BEAKER) 1 % 0-1 (test nvin=4782) [id number] 07:00:00 Test Item Value Reference Range Comments MAGNESIUM (BEAKER) (test jusg=114) 2.2 mg/dL 1.6-2.6 BASIC METABOLIC [id number] 07:00:00 Test Item Value Reference Range Comments SODIUM (BEAKER) (test 133 meq/L 136-145 ygbn=296) POTASSIUM (BEAKER) (test 4.3 meq/L 3.5-5.1 lsmg=441) CHLORIDE (BEAKER) (test 91 meq/L 98-107 mxah=882) CO2 (BEAKER) (test 34 meq/L 22-29 oews=870) BLOOD UREA NITROGEN 19 mg/dL 7-21 (BEAKER) (test mgpd=733) CREATININE (BEAKER) (test 0.61 mg/dL 0.57-1.25 qmtx=911) GLUCOSE RANDOM (BEAKER) 61 mg/dL 70-105 (test zptj=922) CALCIUM (BEAKER) (test 8.9 mg/dL 8.4-10.2 veor=312) EGFR (BEAKER) (test 100 mL/min/1.73 sq m ESTIMATED GFR IS NOT zgnm=9425) ACCURATE CREATININE CLEARANCE IN PREDICTING GLOMERULAR FILTRATION RATE. ESTIMATED GFR IS NOT APPLICABLE FOR DIALYSIS PATIENTS. POCT-GLUCOSE [id number] 20:42:00 Test Item Value Reference Range Comments POC-GLUCOSE METER (BEAKER) 183 mg/dL 70-110 TESTED AT [address] (test qoay=7159) [place] [id number] POCT-GLUCOSE [id number] 11:38:00 Test Item Value Reference Range Comments POC-GLUCOSE METER (BEAKER) 130 mg/dL 70-110 TESTED AT [address] (test qret=1465) [facility] [address] POCT-GLUCOSE [id number] 08:08:00 Test Item Value Reference Range Comments POC-GLUCOSE METER (BEAKER) 67 mg/dL 70-110 Will Repeat Test/TESTED AT (test rzti=3145) [address] [address] [id number] 06:51:00 Test Item Value Reference Range Comments MAGNESIUM (BEAKER) (test ffoq=530) 2.0 mg/dL 1.6-2.6 BASIC METABOLIC [id number] 06:51:00 Test Item Value Reference Range Comments SODIUM (BEAKER) (test 134 meq/L 136-145 rjha=242) POTASSIUM (BEAKER) (test 4.4 meq/L 3.5-5.1 dbju=048) CHLORIDE (BEAKER) (test 92 meq/L 98-107 shcb=191) CO2 (BEAKER) (test 34 meq/L 22-29 drdj=541) BLOOD UREA NITROGEN 17 mg/dL 7-21 (BEAKER) (test zcpf=043) CREATININE (BEAKER) (test 0.56 mg/dL 0.57-1.25 bgju=553) GLUCOSE RANDOM (BEAKER) 66 mg/dL 70-105 (test xvkb=045) CALCIUM (BEAKER) (test 8.8 mg/dL 8.4-10.2 atji=676) EGFR (BEAKER) (test 110 mL/min/1.73 sq m ESTIMATED GFR IS NOT ehft=4276) ACCURATE CREATININE CLEARANCE IN PREDICTING GLOMERULAR FILTRATION RATE. ESTIMATED GFR IS NOT APPLICABLE FOR DIALYSIS PATIENTS. CBC W/PLT COUNT & AUTO [id number] 06:00:00 Test Item Value Reference Range Comments WHITE BLOOD CELL COUNT (BEAKER) (test dbmk=405) 17.0 K/ L 3.5-10.5 RED BLOOD CELL COUNT (BEAKER) (test rnja=775) 4.16 M/ L 3.93-5.22 HEMOGLOBIN (BEAKER) (test lidt=951) 11.1 GM/DL 11.2-15.7 HEMATOCRIT (BEAKER) (test tdmb=962) 36.3 % 34.1-44.9 MEAN CORPUSCULAR VOLUME (BEAKER) (test eonp=753) 87.3 fL 79.4-94.8 MEAN CORPUSCULAR HEMOGLOBIN (BEAKER) (test 26.7 pg 25.6-32.2 bcrp=018) MEAN CORPUSCULAR HEMOGLOBIN CONC (BEAKER) (test 30.6 GM/DL 32.2-35.5 zgwa=617) RED CELL DISTRIBUTION WIDTH (BEAKER) (test 15.6 % 11.7-14.4 ksom=218) PLATELET COUNT (BEAKER) (test nevn=580) 293 K/CU MM 150-450 MEAN PLATELET VOLUME (BEAKER) (test khdr=556) 11.7 fL 9.4-12.3 NUCLEATED RED BLOOD CELLS (BEAKER) (test 0 /100 WBC 0-0 jyza=139) NEUTROPHILS RELATIVE PERCENT (BEAKER) (test 81 % illp=057) LYMPHOCYTES RELATIVE PERCENT (BEAKER) (test 9 % durq=729) MONOCYTES RELATIVE PERCENT (BEAKER) (test 8 % xuqz=388) EOSINOPHILS RELATIVE PERCENT (BEAKER) (test 1 % expc=541) BASOPHILS RELATIVE PERCENT (BEAKER) (test 0 % vpwc=395) NEUTROPHILS ABSOLUTE COUNT (BEAKER) (test 13.77 K/ L 1.56-6.13 pkyk=666) LYMPHOCYTES ABSOLUTE COUNT (BEAKER) (test 1.51 K/ L 1.18-3.74 tsuk=124) MONOCYTES ABSOLUTE COUNT (BEAKER) (test 1.35 K/ L 0.24-0.36 fpfj=205) EOSINOPHILS ABSOLUTE COUNT (BEAKER) (test 0.08 K/ L 0.04-0.36 gkgp=395) BASOPHILS ABSOLUTE COUNT (BEAKER) (test 0.04 K/ L 0.01-0.08 evmq=123) IMMATURE GRANULOCYTES-RELATIVE PERCENT (BEAKER) 1 % 0-1 (test epwv=0345) POCT-GLUCOSE [id number] 21:21:00 Test Item Value Reference Range Comments POC-GLUCOSE METER (BEAKER) 177 mg/dL 70-110 TESTED AT [address] (test inro=0262) [facility] [address] POCT-GLUCOSE [id number] 17:52:00 Test Item Value Reference Range Comments POC-GLUCOSE METER (BEAKER) 191 mg/dL 70-110 TESTED AT [address] (test imcq=5056) [facility] [address] POCT-GLUCOSE [id number] 11:46:00 Test Item Value Reference Range Comments POC-GLUCOSE METER (BEAKER) 145 mg/dL 70-110 TESTED AT [address] (test lfnm=7987) [facility] [address] POCT-GLUCOSE [id number] 07:59:00 Test Item Value Reference Range Comments POC-GLUCOSE METER (BEAKER) 89 mg/dL 70-110 TESTED AT [address] (test dtys=3284) [facility] [address] [id number] 04:29:00 Test Item Value Reference Range Comments MAGNESIUM (BEAKER) (test fulc=251) 2.1 mg/dL 1.6-2.6 BASIC METABOLIC [id number] 04:29:00 Test Item Value Reference Range Comments SODIUM (BEAKER) (test 134 meq/L 136-145 gblj=451) POTASSIUM (BEAKER) (test 4.7 meq/L 3.5-5.1 hdxp=389) CHLORIDE (BEAKER) (test 91 meq/L 98-107 ezoi=310) CO2 (BEAKER) (test 36 meq/L 22-29 whzg=077) BLOOD UREA NITROGEN 14 mg/dL 7-21 (BEAKER) (test jecv=429) CREATININE (BEAKER) (test 0.56 mg/dL 0.57-1.25 cxuh=267) GLUCOSE RANDOM (BEAKER) 138 mg/dL 70-105 (test voak=345) CALCIUM (BEAKER) (test 8.3 mg/dL 8.4-10.2 rhda=521) EGFR (BEAKER) (test 110 mL/min/1.73 sq m ESTIMATED GFR IS NOT zmps=2744) ACCURATE CREATININE CLEARANCE IN PREDICTING GLOMERULAR FILTRATION RATE. ESTIMATED GFR IS NOT APPLICABLE FOR DIALYSIS PATIENTS. CBC W/PLT COUNT & AUTO [id number] 04:18:00 Test Item Value Reference Range Comments WHITE BLOOD CELL COUNT (BEAKER) (test kljy=277) 14.1 K/ L 3.5-10.5 RED BLOOD CELL COUNT (BEAKER) (test sfyx=922) 4.06 M/ L 3.93-5.22 HEMOGLOBIN (BEAKER) (test kyaz=654) 11.1 GM/DL 11.2-15.7 HEMATOCRIT (BEAKER) (test dcol=508) 35.9 % 34.1-44.9 MEAN CORPUSCULAR VOLUME (BEAKER) (test gsar=209) 88.4 fL 79.4-94.8 MEAN CORPUSCULAR HEMOGLOBIN (BEAKER) (test 27.3 pg 25.6-32.2 peet=333) MEAN CORPUSCULAR HEMOGLOBIN CONC (BEAKER) (test 30.9 GM/DL 32.2-35.5 ttzg=465) RED CELL DISTRIBUTION WIDTH (BEAKER) (test 15.5 % 11.7-14.4 rxfi=352) PLATELET COUNT (BEAKER) (test kurh=971) 309 K/CU MM 150-450 MEAN PLATELET VOLUME (BEAKER) (test fbum=722) 10.7 fL 9.4-12.3 NUCLEATED RED BLOOD CELLS (BEAKER) (test 0 /100 WBC 0-0 aglh=648) NEUTROPHILS RELATIVE PERCENT (BEAKER) (test 89 % kmbq=249) LYMPHOCYTES RELATIVE PERCENT (BEAKER) (test 5 % qftz=091) MONOCYTES RELATIVE PERCENT (BEAKER) (test 5 % mwec=193) EOSINOPHILS RELATIVE PERCENT (BEAKER) (test 0 % ucje=045) BASOPHILS RELATIVE PERCENT (BEAKER) (test 0 % yayu=499) NEUTROPHILS ABSOLUTE COUNT (BEAKER) (test 12.50 K/ L 1.56-6.13 fyys=529) LYMPHOCYTES ABSOLUTE COUNT (BEAKER) (test 0.68 K/ L 1.18-3.74 rtmb=088) MONOCYTES ABSOLUTE COUNT (BEAKER) (test 0.74 K/ L 0.24-0.36 zgvz=106) EOSINOPHILS ABSOLUTE COUNT (BEAKER) (test 0.00 K/ L 0.04-0.36 dnus=084) BASOPHILS ABSOLUTE COUNT (BEAKER) (test 0.01 K/ L 0.01-0.08 zsle=098) IMMATURE GRANULOCYTES-RELATIVE PERCENT (BEAKER) 1 % 0-1 (test hrjz=8747) POCT-GLUCOSE [id number] 21:24:00 Test Item Value Reference Range Comments POC-GLUCOSE METER (BEAKER) 257 mg/dL 70-110 TESTED AT [address] (test nnqc=9870) [place] [address] POCT-GLUCOSE [id number] 17:18:00 Test Item Value Reference Range Comments POC-GLUCOSE METER (BEAKER) 171 mg/dL 70-110 TESTED AT [address] (test uram=3341) [place] [address] POCT-GLUCOSE [id number] 12:43:00 Test Item Value Reference Range Comments POC-GLUCOSE METER (BEAKER) 178 mg/dL 70-110 TESTED AT [address] (test iaif=8568) [place] [address] CBC W/PLT COUNT & AUTO [id number] 09:33:00 Test Item Value Reference Range Comments WHITE BLOOD CELL COUNT (BEAKER) (test ntcm=468) 15.2 K/ L 3.5-10.5 RED BLOOD CELL COUNT (BEAKER) (test rrsq=943) 4.36 M/ L 3.93-5.22 HEMOGLOBIN (BEAKER) (test matf=020) 11.8 GM/DL 11.2-15.7 HEMATOCRIT (BEAKER) (test oqbm=974) 37.6 % 34.1-44.9 MEAN CORPUSCULAR VOLUME (BEAKER) (test ltye=053) 86.2 fL 79.4-94.8 MEAN CORPUSCULAR HEMOGLOBIN (BEAKER) (test 27.1 pg 25.6-32.2 zoma=627) MEAN CORPUSCULAR HEMOGLOBIN CONC (BEAKER) (test 31.4 GM/DL 32.2-35.5 olpv=246) RED CELL DISTRIBUTION WIDTH (BEAKER) (test 15.6 % 11.7-14.4 yuop=939) PLATELET COUNT (BEAKER) (test rhvk=079) 289 K/CU MM 150-450 MEAN PLATELET VOLUME (BEAKER) (test cvfw=027) 12.1 fL 9.4-12.3 NUCLEATED RED BLOOD CELLS (BEAKER) (test 0 /100 WBC 0-0 nhxg=251) NEUTROPHILS RELATIVE PERCENT (BEAKER) (test 78 % bdrq=241) LYMPHOCYTES RELATIVE PERCENT (BEAKER) (test 10 % sast=066) MONOCYTES RELATIVE PERCENT (BEAKER) (test 10 % oalv=812) EOSINOPHILS RELATIVE PERCENT (BEAKER) (test 1 % sqmx=829) BASOPHILS RELATIVE PERCENT (BEAKER) (test 0 % gcvh=584) NEUTROPHILS ABSOLUTE COUNT (BEAKER) (test 11.75 K/ L 1.56-6.13 lvse=164) LYMPHOCYTES ABSOLUTE COUNT (BEAKER) (test 1.54 K/ L 1.18-3.74 cayi=762) MONOCYTES ABSOLUTE COUNT (BEAKER) (test 1.56 K/ L 0.24-0.36 mguo=448) EOSINOPHILS ABSOLUTE COUNT (BEAKER) (test 0.08 K/ L 0.04-0.36 jsbp=055) BASOPHILS ABSOLUTE COUNT (BEAKER) (test 0.03 K/ L 0.01-0.08 hwvg=679) IMMATURE GRANULOCYTES-RELATIVE PERCENT (BEAKER) 1 % 0-1 (test aitp=9652) POCT-GLUCOSE [id number] 07:00:00 Test Item Value Reference Range Comments POC-GLUCOSE METER (BEAKER) 101 mg/dL 70-[address] [facility] [address] [facility] (test cftn=9007) [facility] [address] [id number] 05:09:00 Test Item Value Reference Range Comments MAGNESIUM (BEAKER) (test 2.3 mg/dL 1.6-2.6 Specimen slightly hemolyzed yigr=729) BASIC METABOLIC [id number] 05:09:00 Test Item Value Reference Range Comments SODIUM (BEAKER) (test 134 meq/L 136-145 whjg=139) POTASSIUM (BEAKER) (test 5.1 meq/L 3.5-5.1 Specimen slightly xidz=335) hemolyzed CHLORIDE (BEAKER) (test 96 meq/L 98-107 wyap=227) CO2 (BEAKER) (test 33 meq/L 22-29 lrxe=492) BLOOD UREA NITROGEN 13 mg/dL 7-21 (BEAKER) (test khfw=334) CREATININE (BEAKER) (test 0.48 mg/dL 0.57-1.25 Specimen slightly xrak=666) hemolyzed GLUCOSE RANDOM (BEAKER) 73 mg/dL 70-105 (test ulgg=170) CALCIUM (BEAKER) (test 8.3 mg/dL 8.4-10.2 iiuf=118) EGFR (BEAKER) (test 131 mL/min/1.73 sq m ESTIMATED GFR IS NOT ssxg=4088) ACCURATE CREATININE CLEARANCE IN PREDICTING GLOMERULAR FILTRATION RATE. ESTIMATED GFR IS NOT APPLICABLE FOR DIALYSIS PATIENTS. POCT-GLUCOSE [id number] 21:25:00 Test Item Value Reference Range Comments POC-GLUCOSE METER (BEAKER) 334 mg/dL 70-110 Will Repeat Test/TESTED AT (test edrx=9585) [address] [address] BLOOD GAS, [id number] 12:45:00 Test Item Value Reference Range Comments PH ARTERIAL (BEAKER) (test adzq=114) 7.47 7.35-7.45 PCO2 ARTERIAL (BEAKER) (test rrfw=800) 60 mmHg 35-45 PO2 ARTERIAL (BEAKER) (test nvhw=505) 79 mmHg 80-90 O2 SATURATION ARTERIAL (BEAKER) (test yqcg=000) 96.2 % 96.0-97.0 HCO3 ARTERIAL (BEAKER) (test kqvk=634) 42 mmol/L 21-29 BASE EXCESS ARTERIAL (BEAKER) (test uhlc=931) 15.6 mmol/L -2.0-3.0 PATIENT TEMPERATURE (BEAKER) (test srjs=2860) 36.7 C FIO2 (BEAKER) (test vmlg=2109) 32.0 % POCT-GLUCOSE [id number] 11:48:00 Test Item Value Reference Range Comments POC-GLUCOSE METER (BEAKER) 140 mg/dL 70-110 TESTED AT [address] (test vocp=9659) [facility] [address] BASIC METABOLIC [id number] 09:02:00 Test Item Value Reference Range Comments SODIUM (BEAKER) (test 135 meq/L 136-145 weym=007) POTASSIUM (BEAKER) (test 3.4 meq/L 3.5-5.1 ngtw=495) CHLORIDE (BEAKER) (test 89 meq/L 98-107 zahw=564) CO2 (BEAKER) (test 43 meq/L 22-29 tivc=922) BLOOD UREA NITROGEN 15 mg/dL 7-21 (BEAKER) (test zbka=985) CREATININE (BEAKER) (test 0.48 mg/dL 0.57-1.25 mmme=023) GLUCOSE RANDOM (BEAKER) 77 mg/dL 70-105 (test hajn=303) CALCIUM (BEAKER) (test 8.1 mg/dL 8.4-10.2 zjla=275) EGFR (BEAKER) (test 131 mL/min/1.73 sq m ESTIMATED GFR IS NOT mpap=9279) ACCURATE CREATININE CLEARANCE IN PREDICTING GLOMERULAR FILTRATION RATE. ESTIMATED GFR IS NOT APPLICABLE FOR DIALYSIS PATIENTS. POCT-GLUCOSE [id number] 06:50:00 Test Item Value Reference Range Comments POC-GLUCOSE METER (BEAKER) 92 mg/dL 70-[address] [facility] [address] [facility] (test czkb=4125) [facility] [address] CBC W/PLT COUNT & AUTO [id number] 04:12:00 Test Item Value Reference Range Comments WHITE BLOOD CELL COUNT (BEAKER) (test ryri=877) 11.7 K/ L 3.5-10.5 RED BLOOD CELL COUNT (BEAKER) (test lpkt=637) 3.67 M/ L 3.93-5.22 HEMOGLOBIN (BEAKER) (test wusb=875) 9.9 GM/DL 11.2-15.7 HEMATOCRIT (BEAKER) (test cqtz=062) 32.5 % 34.1-44.9 MEAN CORPUSCULAR VOLUME (BEAKER) (test zrpv=341) 88.6 fL 79.4-94.8 MEAN CORPUSCULAR HEMOGLOBIN (BEAKER) (test 27.0 pg 25.6-32.2 juxb=233) MEAN CORPUSCULAR HEMOGLOBIN CONC (BEAKER) (test 30.5 GM/DL 32.2-35.5 sikp=070) RED CELL DISTRIBUTION WIDTH (BEAKER) (test 15.2 % 11.7-14.4 skvj=564) PLATELET COUNT (BEAKER) (test yfeb=634) 263 K/CU MM 150-450 MEAN PLATELET VOLUME (BEAKER) (test npvu=300) 10.4 fL 9.4-12.3 NUCLEATED RED BLOOD CELLS (BEAKER) (test 0 /100 WBC 0-0 rlca=220) NEUTROPHILS RELATIVE PERCENT (BEAKER) (test 78 % dauc=023) LYMPHOCYTES RELATIVE PERCENT (BEAKER) (test 11 % kstg=890) MONOCYTES RELATIVE PERCENT (BEAKER) (test 10 % rqoi=616) EOSINOPHILS RELATIVE PERCENT (BEAKER) (test 0 % ryaz=133) BASOPHILS RELATIVE PERCENT (BEAKER) (test 0 % zxpr=823) NEUTROPHILS ABSOLUTE COUNT (BEAKER) (test 9.19 K/ L 1.56-6.13 zinc=602) LYMPHOCYTES ABSOLUTE COUNT (BEAKER) (test 1.26 K/ L 1.18-3.74 oofv=455) MONOCYTES ABSOLUTE COUNT (BEAKER) (test 1.15 K/ L 0.24-0.36 fdey=092) EOSINOPHILS ABSOLUTE COUNT (BEAKER) (test 0.02 K/ L 0.04-0.36 pnja=062) BASOPHILS ABSOLUTE COUNT (BEAKER) (test 0.01 K/ L 0.01-0.08 pybm=382) IMMATURE GRANULOCYTES-RELATIVE PERCENT (BEAKER) 1 % 0-1 (test hthi=0450) POCT-GLUCOSE [id number] 21:22:00 Test Item Value Reference Range Comments POC-GLUCOSE METER (BEAKER) 198 mg/dL 70-110 TESTED AT [address] (test uibl=6223) [place] [address] POCT-GLUCOSE [id number] 16:57:00 Test Item Value Reference Range Comments POC-GLUCOSE METER (BEAKER) 297 mg/dL 70-110 TESTED AT [place] [id number] [facility] (test idke=9476) [place] [address] SPUTUM CULTURE + GRAM [id number] 13:17:00 Test Item Value Reference Range Comments CULTURE (BEAKER) (test 4+ Normal respiratory paul nazz=6677) present GRAM STAIN RESULT (BEAKER) 2+ WBCs (test caal=3736) GRAM STAIN RESULT (BEAKER) 0-5 epithelial cells (test waab=95435) GRAM STAIN RESULT (BEAKER) 4+ gram negative rods (test wfaw=33415) GRAM STAIN RESULT (BEAKER) 4+ gram positive cocci in (test sdrd=405284) clusters GRAM STAIN RESULT (BEAKER) 1+ yeast with pseudohyphae (test irtl=826156) CBC W/PLT COUNT & AUTO [id number] 12:07:00 Test Item Value Reference Range Comments WHITE BLOOD CELL COUNT (BEAKER) (test gslv=548) 16.8 K/ L 3.5-10.5 RED BLOOD CELL COUNT (BEAKER) (test igqd=822) 4.39 M/ L 3.93-5.22 HEMOGLOBIN (BEAKER) (test fizc=482) 12.0 GM/DL 11.2-15.7 HEMATOCRIT (BEAKER) (test lztc=613) 39.3 % 34.1-44.9 MEAN CORPUSCULAR VOLUME (BEAKER) (test ohzi=132) 89.5 fL 79.4-94.8 MEAN CORPUSCULAR HEMOGLOBIN (BEAKER) (test 27.3 pg 25.6-32.2 vqjm=252) MEAN CORPUSCULAR HEMOGLOBIN CONC (BEAKER) (test 30.5 GM/DL 32.2-35.5 jygf=955) RED CELL DISTRIBUTION WIDTH (BEAKER) (test 15.3 % 11.7-14.4 eexe=220) PLATELET COUNT (BEAKER) (test xfbd=236) 312 K/CU MM 150-450 MEAN PLATELET VOLUME (BEAKER) (test cthq=869) 10.9 fL 9.4-12.3 NUCLEATED RED BLOOD CELLS (BEAKER) (test 0 /100 WBC 0-0 fsgf=375) NEUTROPHILS RELATIVE PERCENT (BEAKER) (test 89 % txpc=174) LYMPHOCYTES RELATIVE PERCENT (BEAKER) (test 3 % kztu=901) MONOCYTES RELATIVE PERCENT (BEAKER) (test 7 % xdgn=847) EOSINOPHILS RELATIVE PERCENT (BEAKER) (test 0 % emtf=511) BASOPHILS RELATIVE PERCENT (BEAKER) (test 0 % ecrb=224) NEUTROPHILS ABSOLUTE COUNT (BEAKER) (test 15.01 K/ L 1.56-6.13 ybwb=334) LYMPHOCYTES ABSOLUTE COUNT (BEAKER) (test 0.56 K/ L 1.18-3.74 jmau=802) MONOCYTES ABSOLUTE COUNT (BEAKER) (test 1.11 K/ L 0.24-0.36 rszh=605) EOSINOPHILS ABSOLUTE COUNT (BEAKER) (test 0.00 K/ L 0.04-0.36 wxei=437) BASOPHILS ABSOLUTE COUNT (BEAKER) (test 0.02 K/ L 0.01-0.08 erad=948) IMMATURE GRANULOCYTES-RELATIVE PERCENT (BEAKER) 1 % 0-1 (test xpzn=1105) POCT-GLUCOSE [id number] 11:54:00 Test Item Value Reference Range Comments POC-GLUCOSE METER (BEAKER) 179 mg/dL 70-110 TESTED AT [address] (test jcmo=7862) [place] [address] BASIC METABOLIC [id number] 04:52:00 Test Item Value Reference Range Comments SODIUM (BEAKER) (test 137 meq/L 136-145 kdxq=237) POTASSIUM (BEAKER) (test 3.8 meq/L 3.5-5.1 usaq=759) CHLORIDE (BEAKER) (test 93 meq/L 98-107 swir=470) CO2 (BEAKER) (test 36 meq/L 22-29 gnja=211) BLOOD UREA NITROGEN 17 mg/dL 7-21 (BEAKER) (test ogma=092) CREATININE (BEAKER) (test 0.54 mg/dL 0.57-1.25 qoof=912) GLUCOSE RANDOM (BEAKER) 103 mg/dL 70-105 (test nubo=390) CALCIUM (BEAKER) (test 8.5 mg/dL 8.4-10.2 kemj=294) EGFR (BEAKER) (test 115 mL/min/1.73 sq m ESTIMATED GFR IS NOT uzce=5099) ACCURATE CREATININE CLEARANCE IN PREDICTING GLOMERULAR FILTRATION RATE. ESTIMATED GFR IS NOT APPLICABLE FOR DIALYSIS PATIENTS. POCT-GLUCOSE [id number] 21:10:00 Test Item Value Reference Range Comments POC-GLUCOSE METER (BEAKER) 289 mg/dL 70-110 TESTED AT [address] (test ella=5940) [place] [address] CBC W/PLT COUNT & AUTO [id number] 15:29:00 Test Item Value Reference Range Comments WHITE BLOOD CELL COUNT (BEAKER) (test ihdr=181) 20.2 K/ L 3.5-10.5 RED BLOOD CELL COUNT (BEAKER) (test eeiv=157) 4.70 M/ L 3.93-5.22 HEMOGLOBIN (BEAKER) (test hhkv=057) 12.6 GM/DL 11.2-15.7 HEMATOCRIT (BEAKER) (test oapl=891) 43.3 % 34.1-44.9 MEAN CORPUSCULAR VOLUME (BEAKER) (test lyel=530) 92.1 fL 79.4-94.8 MEAN CORPUSCULAR HEMOGLOBIN (BEAKER) (test 26.8 pg 25.6-32.2 yigl=934) MEAN CORPUSCULAR HEMOGLOBIN CONC (BEAKER) (test 29.1 GM/DL 32.2-35.5 qycd=942) RED CELL DISTRIBUTION WIDTH (BEAKER) (test 15.2 % 11.7-14.4 peht=810) PLATELET COUNT (BEAKER) (test uahe=575) 301 K/CU MM 150-450 MEAN PLATELET VOLUME (BEAKER) (test bzuk=827) 11.0 fL 9.4-12.3 NUCLEATED RED BLOOD CELLS (BEAKER) (test 0 /100 WBC 0-0 flbs=852) NEUTROPHILS RELATIVE PERCENT (BEAKER) (test 95 % icxy=966) LYMPHOCYTES RELATIVE PERCENT (BEAKER) (test 2 % qnks=826) MONOCYTES RELATIVE PERCENT (BEAKER) (test 2 % eemc=388) EOSINOPHILS RELATIVE PERCENT (BEAKER) (test 0 % snax=943) BASOPHILS RELATIVE PERCENT (BEAKER) (test 0 % qveo=657) NEUTROPHILS ABSOLUTE COUNT (BEAKER) (test 19.18 K/ L 1.56-6.13 koyq=074) LYMPHOCYTES ABSOLUTE COUNT (BEAKER) (test 0.40 K/ L 1.18-3.74 zalg=575) MONOCYTES ABSOLUTE COUNT (BEAKER) (test 0.37 K/ L 0.24-0.36 biws=784) EOSINOPHILS ABSOLUTE COUNT (BEAKER) (test 0.00 K/ L 0.04-0.36 ewax=725) BASOPHILS ABSOLUTE COUNT (BEAKER) (test 0.04 K/ L 0.01-0.08 srzl=851) IMMATURE GRANULOCYTES-RELATIVE PERCENT (BEAKER) 1 % 0-1 (test axms=5556) POCT-GLUCOSE [id number] 13:19:00 Test Item Value Reference Range Comments POC-GLUCOSE METER (BEAKER) 198 mg/dL 70-[address] [facility] [address] (test phzd=6402) [facility] [address] BODY FLUID CULTURE + GRAM [id number] 11:22:00 Test Item Value Reference Range Comments CULTURE (BEAKER) (test uvhq=8450) No growth GRAM STAIN RESULT (BEAKER) (test <1+ WBCs xhpq=3200) GRAM STAIN RESULT (BEAKER) (test No organisms seen vlel=73998) RAD, CHEST, 1 VIEW, NON [id number] 08:47:00Reason for exam:->sobShould this be performed at [...] MDReport Verified Date/Time: 02/11/2017 08:47:53 Reading Location: [address] Neuro Reading Room BASIC METABOLIC [id number] 07:36:00 Test Item Value Reference Range Comments SODIUM (BEAKER) (test 138 meq/L 136-145 hvey=111) POTASSIUM (BEAKER) (test 3.7 meq/L 3.5-5.1 tswt=477) CHLORIDE (BEAKER) (test 96 meq/L 98-107 apdy=789) CO2 (BEAKER) (test 33 meq/L 22-29 dwnf=780) BLOOD UREA NITROGEN 18 mg/dL 7-21 (BEAKER) (test tath=287) CREATININE (BEAKER) (test 0.61 mg/dL 0.57-1.25 wdku=023) GLUCOSE RANDOM (BEAKER) 247 mg/dL 70-105 (test vqtg=009) CALCIUM (BEAKER) (test 8.4 mg/dL 8.4-10.2 uryb=570) EGFR (BEAKER) (test 100 mL/min/1.73 sq m ESTIMATED GFR IS NOT wgqd=1385) ACCURATE CREATININE CLEARANCE IN PREDICTING GLOMERULAR FILTRATION RATE. ESTIMATED GFR IS NOT APPLICABLE FOR DIALYSIS PATIENTS. POCT-GLUCOSE [id number] 22:00:00 Test Item Value Reference Range Comments POC-GLUCOSE METER (BEAKER) 366 mg/dL 70-110 Will Repeat Test/TESTED AT (test hvjr=6015) [facility] [address] [facility] [address] (MANUAL DIFFERENTIAL)2017-02-10 19:58:00 Test Item Value Reference Range Comments NEUTROPHILS - REL (DIFF) (BEAKER) (test 89 % zmwp=8876) LYMPHOCYTES - REL (DIFF) (BEAKER) (test 2 % mmdx=3800) MONOCYTES - REL (DIFF) (BEAKER) (test ufbu=8783) 6 % BANDS - REL (DIFF) (BEAKER) (test eknq=4355) 3 % 0-10 NEUTROPHILS - ABS (DIFF) (BEAKER) (test 24.21 K/ L 1.80-8.00 rahb=1265) LYMPHOCYTES - ABS (DIFF) (BEAKER) (test 0.54 K/ L 1.48-4.50 pqmy=2854) MONOCYTES - ABS (DIFF) (BEAKER) (test tzks=3454) 1.63 K/ L 0.00-1.30 BANDS-ABS (DIFF) (BEAKER) (test jssn=6725) 0.8 K/ L 0.0-0.8 TOTAL COUNTED (BEAKER) (test opoo=6175) 100 BANDS + SEGMENTED NEUTROPHILS (BEAKER) (test 25.02 fpoi=8458) WBC MORPHOLOGY (BEAKER) (test voqr=437) Normal PLT MORPHOLOGY (BEAKER) (test ojda=803) Normal RBC MORPHOLOGY (BEAKER) (test brnp=606) Normal CBC W/PLT COUNT & AUTO [id number] 19:57:00 Test Item Value Reference Range Comments WHITE BLOOD CELL COUNT (BEAKER) (test jkyc=711) 27.2 K/ L 3.5-10.5 RED BLOOD CELL COUNT (BEAKER) (test tqdo=251) 4.46 M/ L 3.93-5.22 HEMOGLOBIN (BEAKER) (test hxai=826) 12.1 GM/DL 11.2-15.7 HEMATOCRIT (BEAKER) (test bshv=999) 42.9 % 34.1-44.9 MEAN CORPUSCULAR VOLUME (BEAKER) (test deju=767) 96.2 fL 79.4-94.8 MEAN CORPUSCULAR HEMOGLOBIN (BEAKER) (test 27.1 pg 25.6-32.2 bqxz=952) MEAN CORPUSCULAR HEMOGLOBIN CONC (BEAKER) (test 28.2 GM/DL 32.2-35.5 dqey=635) RED CELL DISTRIBUTION WIDTH (BEAKER) (test 15.6 % 11.7-14.4 vmdx=445) PLATELET COUNT (BEAKER) (test iumy=443) 318 K/CU MM 150-450 MEAN PLATELET VOLUME (BEAKER) (test lzjq=775) 11.0 fL 9.4-12.3 NUCLEATED RED BLOOD CELLS (BEAKER) (test 0 /100 WBC 0-0 evcn=225) IMMATURE GRANULOCYTES-RELATIVE PERCENT (BEAKER) 1 % 0-1 (test wdqv=1222) POCT-GLUCOSE [id number] 17:32:00 Test Item Value Reference Range Comments POC-GLUCOSE METER (BEAKER) 213 mg/dL 70-[address] [facility] [address] [facility] (test dqlv=1495) [facility] [address] BLOOD GAS, [id number] 14:31:00 Test Item Value Reference Range Comments PH ARTERIAL (BEAKER) (test xysq=346) 7.31 7.35-7.45 PCO2 ARTERIAL (BEAKER) (test iykn=981) 70 mmHg 35-45 PO2 ARTERIAL (BEAKER) (test mxxi=680) 50 mmHg 80-90 O2 SATURATION ARTERIAL (BEAKER) (test mtkf=387) 78.5 % 96.0-97.0 HCO3 ARTERIAL (BEAKER) (test obsh=971) 34 mmol/L 21-29 BASE EXCESS ARTERIAL (BEAKER) (test zuwd=531) 6.2 mmol/L -2.0-3.0 PATIENT TEMPERATURE (BEAKER) (test fxym=2388) 37.5 C FIO2 (BEAKER) (test gglu=1986) 21.0 % BLOOD GAS, [id number] 12:37:00 Test Item Value Reference Range Comments PH ARTERIAL (BEAKER) (test shjh=310) 7.27 7.35-7.45 PCO2 ARTERIAL (BEAKER) (test bwpc=688) 76 mmHg 35-45 PO2 ARTERIAL (BEAKER) (test ygim=522) 123 mmHg 80-90 O2 SATURATION ARTERIAL (BEAKER) (test cixc=090) 97.7 % 96.0-97.0 HCO3 ARTERIAL (BEAKER) (test spla=617) 34 mmol/L 21-29 BASE EXCESS ARTERIAL (BEAKER) (test uycu=581) 5.2 mmol/L -2.0-3.0 PATIENT TEMPERATURE (BEAKER) (test jcgs=1746) 37.5 C FIO2 (BEAKER) (test yeoo=8456) 36.0 % LACTIC ACID, VENOUS, WHOLE [id number] 10:45:00 Test Item Value Reference Range Comments LACTATE BLOOD VENOUS (2) (BEAKER) (test 1.8 mmol/L 0.5-2.2 gaxp=7363) Effective 07/15/2015: Units/Reference Range ChangeNew: 0.5-2.2 mmol/L Previous: 5 -20 mg/dLBLOOD GAS, [id number] 10:40:00 Test Item Value Reference Range Comments PH ARTERIAL (BEAKER) (test gnsj=225) 7.19 7.35-7.45 PCO2 ARTERIAL (BEAKER) (test vlsa=216) 93 mmHg 35-45 PO2 ARTERIAL (BEAKER) (test bkko=237) 56 mmHg 80-90 O2 SATURATION ARTERIAL (BEAKER) (test iiti=288) 78.6 % 96.0-97.0 HCO3 ARTERIAL (BEAKER) (test xjok=911) 34 mmol/L 21-29 BASE EXCESS ARTERIAL (BEAKER) (test pawh=529) 3.8 mmol/L -2.0-3.0 PATIENT TEMPERATURE (BEAKER) (test egja=6844) 37.5 C FIO2 (BEAKER) (test nkgf=1618) 21.0 % BLOOD [id number] 10:00:00 Test Item Value Reference Range Comments CULTURE (BEAKER) (test tyid=3355) No growth in 5 days POCT-GLUCOSE [id number] 08:06:00 Test Item Value Reference Range Comments POC-GLUCOSE METER (BEAKER) 297 mg/dL 70-110 TESTED AT [address] (test vhgm=8498) [place] [id number] BASIC METABOLIC [id number] 05:28:00 Test Item Value Reference Range Comments SODIUM (BEAKER) (test 136 meq/L 136-145 ysnc=648) POTASSIUM (BEAKER) (test 4.4 meq/L 3.5-5.1 ndpi=631) CHLORIDE (BEAKER) (test 98 meq/L 98-107 srvs=093) CO2 (BEAKER) (test 30 meq/L 22-29 dvsf=517) BLOOD UREA NITROGEN 23 mg/dL 7-21 (BEAKER) (test kxvi=567) CREATININE (BEAKER) (test 0.82 mg/dL 0.57-1.25 ccyn=912) GLUCOSE RANDOM (BEAKER) 388 mg/dL 70-105 (test yqoc=934) CALCIUM (BEAKER) (test 8.6 mg/dL 8.4-10.2 rclh=567) EGFR (BEAKER) (test 71 mL/min/1.73 sq m ESTIMATED GFR IS NOT yycx=7681) ACCURATE CREATININE CLEARANCE IN PREDICTING GLOMERULAR FILTRATION RATE. ESTIMATED GFR IS NOT APPLICABLE FOR DIALYSIS PATIENTS. BLOOD [id number] 05:02:00 Test Item Value Reference Range Comments CULTURE (BEAKER) (test lnmo=9678) No growth in 5 days POCT-GLUCOSE [id number] 21:15:00 Test Item Value Reference Range Comments POC-GLUCOSE METER (BEAKER) 174 mg/dL 70-110 TESTED AT [place] [id number] [facility] (test ngha=2582) [place] [address] POCT-GLUCOSE [id number] 18:38:00 Test Item Value Reference Range Comments POC-GLUCOSE METER (BEAKER) 202 mg/dL 70-110 TESTED AT [address] (test nila=8872) [facility] [address] RAD, CHEST, 1 VIEW, NON [id number] 15:27:00Reason for exam:->CoughShould this be performed at [...] Valdovinos MDReport Verified Date/Time:02/09/2017 15:27:55 Reading Location: [facility] Radiology Reading Room POCT-GLUCOSE [id number] 12:21:00 Test Item Value Reference Range Comments POC-GLUCOSE METER (BEAKER) 185 mg/dL 70-[address] [facility] [address] [facility] (test twkt=9938) [facility] [address] POCT-GLUCOSE [id number] 07:52:00 Test Item Value Reference Range Comments POC-GLUCOSE METER (BEAKER) 176 mg/dL 70-110 TESTED AT [address] (test lxye=9615) [place] [address] BASIC METABOLIC [id number] 05:59:00 Test Item Value Reference Range Comments SODIUM (BEAKER) (test 137 meq/L 136-145 pbus=954) POTASSIUM (BEAKER) (test 4.4 meq/L 3.5-5.1 yoai=415) CHLORIDE (BEAKER) (test 93 meq/L 98-107 dqmp=179) CO2 (BEAKER) (test 40 meq/L 22-29 lwek=258) BLOOD UREA NITROGEN 16 mg/dL 7-21 (BEAKER) (test txrg=187) CREATININE (BEAKER) (test 0.50 mg/dL 0.57-1.25 gmfn=045) GLUCOSE RANDOM (BEAKER) 181 mg/dL 70-105 (test jbjd=077) CALCIUM (BEAKER) (test 8.1 mg/dL 8.4-10.2 vxds=127) EGFR (BEAKER) (test 125 mL/min/1.73 sq m ESTIMATED GFR IS NOT qgol=1052) ACCURATE CREATININE CLEARANCE IN PREDICTING GLOMERULAR FILTRATION RATE. ESTIMATED GFR IS NOT APPLICABLE FOR DIALYSIS PATIENTS. [id number] 05:04:00 Test Item Value Reference Range Comments MAGNESIUM (BEAKER) (test hiaw=581) 2.1 mg/dL 1.6-2.6 CBC W/PLT COUNT & AUTO [id number] 04:50:00 Test Item Value Reference Range Comments WHITE BLOOD CELL COUNT (BEAKER) (test opnk=605) 10.6 K/ L 3.5-10.5 RED BLOOD CELL COUNT (BEAKER) (test uarc=642) 3.44 M/ L 3.93-5.22 HEMOGLOBIN (BEAKER) (test kobc=570) 9.3 GM/DL 11.2-15.7 HEMATOCRIT (BEAKER) (test adiv=136) 31.9 % 34.1-44.9 MEAN CORPUSCULAR VOLUME (BEAKER) (test uiwg=203) 92.7 fL 79.4-94.8 MEAN CORPUSCULAR HEMOGLOBIN (BEAKER) (test 27.0 pg 25.6-32.2 bgcf=800) MEAN CORPUSCULAR HEMOGLOBIN CONC (BEAKER) (test 29.2 GM/DL 32.2-35.5 arsy=961) RED CELL DISTRIBUTION WIDTH (BEAKER) (test 15.4 % 11.7-14.4 eczt=381) PLATELET COUNT (BEAKER) (test dqhs=092) 156 K/CU MM 150-450 MEAN PLATELET VOLUME (BEAKER) (test xrmb=704) 12.0 fL 9.4-12.3 NUCLEATED RED BLOOD CELLS (BEAKER) (test 0 /100 WBC 0-0 clyd=182) NEUTROPHILS RELATIVE PERCENT (BEAKER) (test 90 % klqt=893) LYMPHOCYTES RELATIVE PERCENT (BEAKER) (test 5 % mjka=012) MONOCYTES RELATIVE PERCENT (BEAKER) (test 4 % zuxg=282) EOSINOPHILS RELATIVE PERCENT (BEAKER) (test 0 % cxcp=332) BASOPHILS RELATIVE PERCENT (BEAKER) (test 0 % ajxx=872) NEUTROPHILS ABSOLUTE COUNT (BEAKER) (test 9.52 K/ L 1.56-6.13 mktd=778) LYMPHOCYTES ABSOLUTE COUNT (BEAKER) (test 0.48 K/ L 1.18-3.74 iqfg=244) MONOCYTES ABSOLUTE COUNT (BEAKER) (test 0.46 K/ L 0.24-0.36 mebg=261) EOSINOPHILS ABSOLUTE COUNT (BEAKER) (test 0.00 K/ L 0.04-0.36 avav=317) BASOPHILS ABSOLUTE COUNT (BEAKER) (test 0.01 K/ L 0.01-0.08 zglh=859) IMMATURE GRANULOCYTES-RELATIVE PERCENT (BEAKER) 1 % 0-1 (test pxkw=2139) POCT-GLUCOSE [id number] 20:33:00 Test Item Value Reference Range Comments POC-GLUCOSE METER (BEAKER) 200 mg/dL 70-110 TESTED AT [address] (test uksk=9457) [place] [address] POCT-GLUCOSE [id number] 19:24:00 Test Item Value Reference Range Comments POC-GLUCOSE METER (BEAKER) 237 mg/dL 70-110 TESTED AT [address] (test twmw=4790) [place] [address] POCT-GLUCOSE [id number] 11:09:00 Test Item Value Reference Range Comments POC-GLUCOSE METER (BEAKER) 301 mg/dL 70-110 TESTED AT [address] (test djqy=5533) [place] [address] HEMOGLOBIN [id number] 10:56:00 Test Item Value Reference Range Comments HEMOGLOBIN A1C (BEAKER) (test vgsj=670) 5.8 % 4.3-6.1 POCT-GLUCOSE [id number] 07:55:00 Test Item Value Reference Range Comments POC-GLUCOSE METER (BEAKER) 216 mg/dL 70-110 TESTED AT [address] (test kthz=9520) [place] [address] HEPATITIS C PCR, [id number] 05:55:00 Test Item Value Reference Range Comments HCV RESULT COMPONENT (BEAKER) HCV RNA not detected HCV RNA not detected (test janp=9861) This test uses a Real-Time Polymerase Chain Reaction (RT-PCR) methodology and was performed using ANN Ampliprep/ANN TaqMan HCV test kit version 2.0 ( [employer]).Reportable range for this assay is 15 - 100,000, 000 IU per mL (1.18 - 8.00 Log IU/mL).This test uses a Real-Time Polymerase Chain Reaction (RT-PCR) methodology and was performed using ANN Ampliprep/ ANN TaqMan HCV test kit version 2.0 ([employer]) .Reportable range for this assay is 15 - 100,000,000 IU per mL (1.18 - 8.00 Log IU/mL).[id number] 05:50:00 Test Item Value Reference Range Comments MAGNESIUM (BEAKER) (test scid=167) 2.0 mg/dL 1.6-2.6 COMPREHENSIVE METABOLIC [id number] 05:50:00 Test Item Value Reference Range Comments TOTAL PROTEIN (BEAKER) 6.0 gm/dL 6.0-8.3 (test ogfm=473) ALBUMIN (BEAKER) (test 3.2 g/dL 3.5-5.0 sogi=7884) ALKALINE PHOSPHATASE 97 U/L 40-150 (BEAKER) (test oqbi=477) BILIRUBIN TOTAL (BEAKER) 0.3 mg/dL 0.2-1.2 (test nmfi=208) SODIUM (BEAKER) (test 139 meq/L 136-145 eprv=068) POTASSIUM (BEAKER) (test 4.7 meq/L 3.5-5.1 qnuz=900) CHLORIDE (BEAKER) (test 96 meq/L 98-107 rqcj=953) CO2 (BEAKER) (test 37 meq/L 22-29 uxtt=042) BLOOD UREA NITROGEN 12 mg/dL 7-21 (BEAKER) (test ccgo=292) CREATININE (BEAKER) (test 0.54 mg/dL 0.57-1.25 jsnr=800) GLUCOSE RANDOM (BEAKER) 172 mg/dL 70-105 (test zusv=209) CALCIUM (BEAKER) (test 8.7 mg/dL 8.4-10.2 cabz=566) AST (SGOT) (BEAKER) (test 33 U/L 5-34 cgtz=727) ALT (SGPT) (BEAKER) (test 33 U/L 6-55 nibi=200) EGFR (BEAKER) (test 115 mL/min/1.73 sq ESTIMATED GFR IS NOT zhaq=8974) m ACCURATE CREATININE CLEARANCE IN PREDICTING GLOMERULAR FILTRATION RATE. ESTIMATED GFR IS NOT APPLICABLE FOR DIALYSIS PATIENTS. CBC W/PLT COUNT & AUTO [id number] 05:32:00 Test Item Value Reference Range Comments WHITE BLOOD CELL COUNT (BEAKER) (test qjxg=894) 17.0 K/ L 3.5-10.5 RED BLOOD CELL COUNT (BEAKER) (test wdrx=850) 3.42 M/ L 3.93-5.22 HEMOGLOBIN (BEAKER) (test wdcm=761) 9.4 GM/DL 11.2-15.7 HEMATOCRIT (BEAKER) (test xxpu=972) 32.0 % 34.1-44.9 MEAN CORPUSCULAR VOLUME (BEAKER) (test jpfr=518) 93.6 fL 79.4-94.8 MEAN CORPUSCULAR HEMOGLOBIN (BEAKER) (test 27.5 pg 25.6-32.2 isnr=938) MEAN CORPUSCULAR HEMOGLOBIN CONC (BEAKER) (test 29.4 GM/DL 32.2-35.5 papw=263) RED CELL DISTRIBUTION WIDTH (BEAKER) (test 15.6 % 11.7-14.4 wibh=386) PLATELET COUNT (BEAKER) (test kbvu=541) 169 K/CU MM 150-450 MEAN PLATELET VOLUME (BEAKER) (test spgz=014) 11.0 fL 9.4-12.3 NUCLEATED RED BLOOD CELLS (BEAKER) (test 0 /100 WBC 0-0 rehx=668) NEUTROPHILS RELATIVE PERCENT (BEAKER) (test 91 % smtn=333) LYMPHOCYTES RELATIVE PERCENT (BEAKER) (test 4 % mbpf=603) MONOCYTES RELATIVE PERCENT (BEAKER) (test 5 % zfpw=605) EOSINOPHILS RELATIVE PERCENT (BEAKER) (test 0 % ttsl=857) BASOPHILS RELATIVE PERCENT (BEAKER) (test 0 % avfq=439) NEUTROPHILS ABSOLUTE COUNT (BEAKER) (test 15.41 K/ L 1.56-6.13 kkqs=812) LYMPHOCYTES ABSOLUTE COUNT (BEAKER) (test 0.60 K/ L 1.18-3.74 jrpu=231) MONOCYTES ABSOLUTE COUNT (BEAKER) (test 0.78 K/ L 0.24-0.36 xlnm=304) EOSINOPHILS ABSOLUTE COUNT (BEAKER) (test 0.00 K/ L 0.04-0.36 yzcg=693) BASOPHILS ABSOLUTE COUNT (BEAKER) (test 0.01 K/ L 0.01-0.08 yiki=671) IMMATURE GRANULOCYTES-RELATIVE PERCENT (BEAKER) 1 % 0-1 (test oyhv=5608) POCT-GLUCOSE [id number] 22:20:00 Test Item Value Reference Range Comments POC-GLUCOSE METER (BEAKER) 323 mg/dL 70-110 Notified GUS PRATT/TESTED AT [facility] (test aqqo=5141) [address] [facility] [address] BODY FLUID CELL COUNT WITH [id number] 21:00:00 Test Item Value Reference Range Comments APPEARANCE FLUID (BEAKER) (test fsla=371) Slightly Cloudy Clear COLOR FLUID (BEAKER) (test yigp=182) Yellow Colorless, Straw RBC FLUID (BEAKER) (test srwu=903) 1000 /cu mm <=1 ADJUSTED WBC FLUID (BEAKER) (test 620 /cu mm <=5 lviz=7925) LINING CELLS (BEAKER) (test fdtc=2373) 74 /cu mm <=1 NEUTROPHILS FLUID (BEAKER) (test aczh=9322) 21 % LYMPHS FLUID (BEAKER) (test wrws=958) 30 % MONO/MACROPHAGE FLUID (BEAKER) (test 49 % djqi=437) EOSINOPHILS FLUID (BEAKER) (test ujqb=570) 0 % BASO FLUID (BEAKER) (test ygjl=799) 0 % CONTAINER BODY FLUID (BEAKER) (test EDTA Tube fpjq=9002) POCT-GLUCOSE [id number] 20:51:00 Test Item Value Reference Range Comments POC-GLUCOSE METER (BEAKER) 343 mg/dL 70-110 Notified GUS PRATT/TESTED AT [facility] (test gyuw=7154) [address] [facility] [address] RAD, CHEST, 1 VIEW, NON [id number] 20:12:00Reason for exam:->right pleural effusion s/p thoracentesis [...] MDReport Verified Date/Time: 02/07/2017 20:12:46 Reading Location: [address] Reading Room LACTATE DEHYDROGENASE (LDH), BODY [id number] 19:12:00 Test Item Value Reference Range Comments LACTATE DEHYDROGENASE FLUID (BEAKER) < U/L Light's criteria identifies (test zwim=548) effusions if one or more are pre Absence of reference range indicates that normals have not been defined.Assay performance has not been validated for this type of specimen.PROTEIN, BODY [id number] 19:12:00 Test Item Value Reference Range Comments PROTEIN FLUID (BEAKER) (test 1.8 g/dL Light's criteria identifies anvj=907) effusions if one or more are pre Absence of reference range indicates that normals have not been defined.Assay performance has not been validated for this type of specimen.POCT-GLUCOSE [id number] 18:28:00 Test Item Value Reference Range Comments POC-GLUCOSE METER (BEAKER) 272 mg/dL 70-110 TESTED AT [address] (test vtju=4971) [facility] [address] U/S, [id number] 18:23:00Laterality?->RightReason for exam:-> Diagnostic and therapeutic thorcaentesisFINAL [...] was prepped and anesthetized and a 5 Serbian needle/catheter was inserted into the right pleural space. Four 25 cc of yellowish fluid were removed. A chest x-ray was ordered. CONCLUSION: Ultrasound-guided thoracentesis Signed: Dell Pacheco MDRepmer[facility] Verified Date/Time: 02/07/2017 18:23:13 Reading Location : [facility] [id number] Ultrasound Reading Room URINE [id number] 15:17:00 Test Item Value Reference Range Comments CULTURE (BEAKER) (test >100,000 col/mL Susan glabrata cwvm=3346) LACTATE DEHYDROGENASE (LDH)2017-02-07 14:18:00 Test Item Value Reference Range Comments LACTATE DEHYDROGENASE (BEAKER) (test ilcm=985) 296 U/L 125-220 PT/[id number] 11:54:00 Test Item Value Reference Range Comments PROTIME (BEAKER) (test hcvl=309) 13.4 seconds 11.7-14.7 INR (BEAKER) (test ifbj=552) 1.0 <=5.9 PARTIAL THROMBOPLASTIN TIME (BEAKER) (test 25.9 seconds 22.5-36.0 ccpt=810) RECOMMENDED COUMADIN/WARFARIN INR THERAPY RANGESSTANDARD DOSE: 2.0 - 3.0 Includes: PROPHYLAXIS forvenous thrombosis, systemic embolization; TREATMENT for venous thrombosis and/or pulmonary embolus.HIGH RISK: Target INR is 2.5-3.5 for patients with mechanical heart valves.[id number] 05:39:00 Test Item Value Reference Range Comments MAGNESIUM (BEAKER) (test zayf=654) 1.9 mg/dL 1.6-2.6 COMPREHENSIVE METABOLIC [id number] 05:39:00 Test Item Value Reference Range Comments TOTAL PROTEIN (BEAKER) 6.6 gm/dL 6.0-8.3 (test lpxw=735) ALBUMIN (BEAKER) (test 3.5 g/dL 3.5-5.0 qkqk=5733) ALKALINE PHOSPHATASE 111 U/L 40-150 (BEAKER) (test sxcp=943) BILIRUBIN TOTAL (BEAKER) < mg/dL 0.2-1.2 (test exfm=483) SODIUM (BEAKER) (test 137 meq/L 136-145 jdxn=031) POTASSIUM (BEAKER) (test 3.8 meq/L 3.5-5.1 sdqe=607) CHLORIDE (BEAKER) (test 99 meq/L 98-107 hcwb=707) CO2 (BEAKER) (test 31 meq/L 22-29 xtsp=643) BLOOD UREA NITROGEN 11 mg/dL 7-21 (BEAKER) (test jzaf=909) CREATININE (BEAKER) (test 0.61 mg/dL 0.57-1.25 ohdw=737) GLUCOSE RANDOM (BEAKER) 221 mg/dL 70-105 (test yhgl=768) CALCIUM (BEAKER) (test 8.5 mg/dL 8.4-10.2 vbxr=048) AST (SGOT) (BEAKER) (test 12 U/L 5-34 lwve=607) ALT (SGPT) (BEAKER) (test 24 U/L 6-55 xxdd=790) EGFR (BEAKER) (test 100 mL/min/1.73 sq ESTIMATED GFR IS NOT nsvg=6904) m ACCURATE CREATININE CLEARANCE IN PREDICTING GLOMERULAR FILTRATION RATE. ESTIMATED GFR IS NOT APPLICABLE FOR DIALYSIS PATIENTS. LIPID [id number] 05:39:00 Test Item Value Reference Range Comments TRIGLYCERIDES (BEAKER) (test wcaj=272) 101 mg/dL CHOLESTEROL (BEAKER) (test nbhb=616) 134 mg/dL HDL CHOLESTEROL (BEAKER) (test ikkc=287) 52 mg/dL LDL CHOLESTEROL CALCULATED (BEAKER) (test 62 mg/dL cmjl=001) Triglyceride Reference Range: Low Risk <150 Borderline 150- 199 High Risk 200-499 Very High Risk >=500Cholesterol Reference Range: Low Risk <200 Borderline 200-239 High Risk > 240HDL Cholesterol Reference Range: Low Risk >=60 High Risk <40LDL Cholesterol Reference Range: Optimal <100 Near Optimal 100-129 Borderline 130-159 High 160-189 Very High >=190CBC W/PLT COUNT & AUTO [id number] 04:29:00 Test Item Value Reference Range Comments WHITE BLOOD CELL COUNT (BEAKER) (test bqbf=085) 11.2 K/ L 3.5-10.5 RED BLOOD CELL COUNT (BEAKER) (test qklw=088) 3.72 M/ L 3.93-5.22 HEMOGLOBIN (BEAKER) (test eomq=582) 10.1 GM/DL 11.2-15.7 HEMATOCRIT (BEAKER) (test bcjl=568) 33.8 % 34.1-44.9 MEAN CORPUSCULAR VOLUME (BEAKER) (test eate=935) 90.9 fL 79.4-94.8 MEAN CORPUSCULAR HEMOGLOBIN (BEAKER) (test 27.2 pg 25.6-32.2 ktqe=452) MEAN CORPUSCULAR HEMOGLOBIN CONC (BEAKER) (test 29.9 GM/DL 32.2-35.5 hjjf=561) RED CELL DISTRIBUTION WIDTH (BEAKER) (test 15.7 % 11.7-14.4 bmvn=628) PLATELET COUNT (BEAKER) (test wraa=145) 238 K/CU MM 150-450 MEAN PLATELET VOLUME (BEAKER) (test buaz=046) 11.1 fL 9.4-12.3 NUCLEATED RED BLOOD CELLS (BEAKER) (test 0 /100 WBC 0-0 ufpc=460) NEUTROPHILS RELATIVE PERCENT (BEAKER) (test 87 % mqlq=739) LYMPHOCYTES RELATIVE PERCENT (BEAKER) (test 6 % case=375) MONOCYTES RELATIVE PERCENT (BEAKER) (test 5 % wscy=916) EOSINOPHILS RELATIVE PERCENT (BEAKER) (test 0 % tdph=216) BASOPHILS RELATIVE PERCENT (BEAKER) (test 0 % bhrg=500) NEUTROPHILS ABSOLUTE COUNT (BEAKER) (test 9.80 K/ L 1.56-6.13 gjld=124) LYMPHOCYTES ABSOLUTE COUNT (BEAKER) (test 0.72 K/ L 1.18-3.74 jkqw=109) MONOCYTES ABSOLUTE COUNT (BEAKER) (test 0.57 K/ L 0.24-0.36 trfz=960) EOSINOPHILS ABSOLUTE COUNT (BEAKER) (test 0.00 K/ L 0.04-0.36 tymf=612) BASOPHILS ABSOLUTE COUNT (BEAKER) (test 0.00 K/ L 0.01-0.08 yzeh=565) IMMATURE GRANULOCYTES-RELATIVE PERCENT (BEAKER) 1 % 0-1 (test ikyp=6607) CT, CHEST, WITHOUT [id number] 23:24:00FINAL REPORT INDICATION: 62-year-old female with hypoxia. [...] Verified Date/Time: 02/06/2017 23: 24:50 Reading Location: [facility] C013W Consult Reading Room TSH/FREE T4 IF [id number] 19:48:00 Test Item Value Reference Range Comments THYROID STIMULATING HORMONE (BEAKER) (test 0.47 uIU/mL 0.35-4.94 wzfw=359) RESPIRATORY PANEL [id number] 14:57:00 Test Item Value Reference Range Comments HUMAN METAPNEUMOVIRUS (BEAKER) (test Not detected Not detected, Inconclusive kwhy=7289) RHINOVIRUS (BEAKER) (test cbll=2326) Not detected Not detected, Inconclusive INFLUENZA A (BEAKER) (test Not detected Not detected, Inconclusive nbyo=6724) INFLUENZA A SUBTYPE H1 (BEAKER) Not detected Not detected, Inconclusive (test tmdp=4770) INFLUENZA A SUBTYPE H3 (BEAKER) Not detected Not detected, Inconclusive (test wwqc=7002) INFLUENZA A SUBTYPE H1-2009 (BEAKER) Not detected Not detected, Inconclusive (test mtve=1917) INFLUENZA B (BEAKER) (test Not detected Not detected, Inconclusive twhw=6158) RESPIRATORY SYNCYTIAL VIRUS (BEAKER) Not detected Not detected, Inconclusive (test wium=9027) PARAINFLUENZA VIRUS 1 (BEAKER) (test Not detected Not detected, Inconclusive ixzl=3487) PARAINFLUENZA VIRUS 2 (BEAKER) (test Not detected Not detected, Inconclusive rols=6428) PARAINFLUENZA VIRUS 3 (BEAKER) (test Not detected Not detected, Inconclusive qjxn=7346) PARAINFLUENZA VIRUS 4 (BEAKER) (test Not detected Not detected, Inconclusive oghy=9095) ADENOVIRUS (BEAKER) (test bgls=1771) Not detected Not detected, Inconclusive CORONAVIRUS 229E (BEAKER) (test Not detected Not detected, Inconclusive gqwk=6164) CORONAVIRUS HKU1 (BEAKER) (test Not detected Not detected, Inconclusive liqu=1048) CORONAVIRUS NL63 (BEAKER) (test Not detected Not detected, Inconclusive ouam=5032) CORONAVIRUS OC43 (BEAKER) (test Not detected Not detected, Inconclusive xiju=0614) BORDETELLA PERTUSSIS (BEAKER) (test Not detected Not detected, Inconclusive wjgy=7839) CHLAMYDOPHILA PNEUMONIAE (BEAKER) Not detected Not detected, Inconclusive (test bhnt=6072) MYCOPLASMA PNEUMONIAE (BEAKER) (test Not detected Not detected, Inconclusive gpmb=6093) TROPONIN [id number] 13:31:00 Test Item Value Reference Range Comments TROPONIN I (BEAKER) (test wxfr=130) 0.08 ng/mL 0.00-0.03 Troponin I (TnI) levels [...] acute neurological disease, and persistent tachyarrhythmia.VANCOMYCIN LEVEL, [id number] 09:30 :00 Test Item Value Reference Range Comments VANCOMYCIN TROUGH (BEAKER) (test jfce=012) 8.6 ug/mL 10.0-20.0 [id number] 07:03:00 Test Item Value Reference Range Comments MAGNESIUM (BEAKER) (test ahrn=684) 1.7 mg/dL 1.6-2.6 COMPREHENSIVE METABOLIC [id number] 07:03:00 Test Item Value Reference Range Comments TOTAL PROTEIN (BEAKER) 5.6 gm/dL 6.0-8.3 (test vhpo=383) ALBUMIN (BEAKER) (test 3.0 g/dL 3.5-5.0 ulwm=3622) ALKALINE PHOSPHATASE 106 U/L 40-150 (BEAKER) (test lxvy=907) BILIRUBIN TOTAL (BEAKER) < mg/dL 0.2-1.2 (test qjyq=491) SODIUM (BEAKER) (test 136 meq/L 136-145 dkmu=824) POTASSIUM (BEAKER) (test 3.8 meq/L 3.5-5.1 dpep=466) CHLORIDE (BEAKER) (test 96 meq/L 98-107 zxxb=962) CO2 (BEAKER) (test 33 meq/L 22-29 rths=113) BLOOD UREA NITROGEN 13 mg/dL 7-21 (BEAKER) (test bocz=421) CREATININE (BEAKER) (test 0.56 mg/dL 0.57-1.25 zvqw=736) GLUCOSE RANDOM (BEAKER) 250 mg/dL 70-105 (test kaim=833) CALCIUM (BEAKER) (test 8.3 mg/dL 8.4-10.2 tmww=512) AST (SGOT) (BEAKER) (test 12 U/L 5-34 xdgi=834) ALT (SGPT) (BEAKER) (test 24 U/L 6-55 rehk=432) EGFR (BEAKER) (test 110 mL/min/1.73 sq ESTIMATED GFR IS NOT cgmp=2252) m ACCURATE CREATININE CLEARANCE IN PREDICTING GLOMERULAR FILTRATION RATE. ESTIMATED GFR IS NOT APPLICABLE FOR DIALYSIS PATIENTS. TROPONIN [id number] 07:00:00 Test Item Value Reference Range Comments TROPONIN I (BEAKER) (test dnue=317) 0.10 ng/mL 0.00-0.03 Troponin I (TnI) levels [...] acidosis, acute neurological disease, and persistent tachyarrhythmia.TROPONIN [id number] 07:00:00 Test Item Value Reference Range Comments TROPONIN I (BEAKER) (test mdex=641) 0.09 ng/mL 0.00-0.03 Troponin I (TnI) levels [...] and persistent tachyarrhythmia.CBC W/PLT COUNT & AUTO [id number] 06:20:00 Test Item Value Reference Range Comments WHITE BLOOD CELL COUNT (BEAKER) (test gmab=849) 10.2 K/ L 3.5-10.5 RED BLOOD CELL COUNT (BEAKER) (test uqli=760) 3.35 M/ L 3.93-5.22 HEMOGLOBIN (BEAKER) (test divl=737) 9.2 GM/DL 11.2-15.7 HEMATOCRIT (BEAKER) (test njvw=508) 29.6 % 34.1-44.9 MEAN CORPUSCULAR VOLUME (BEAKER) (test unjc=754) 88.4 fL 79.4-94.8 MEAN CORPUSCULAR HEMOGLOBIN (BEAKER) (test 27.5 pg 25.6-32.2 npaj=256) MEAN CORPUSCULAR HEMOGLOBIN CONC (BEAKER) (test 31.1 GM/DL 32.2-35.5 takr=445) RED CELL DISTRIBUTION WIDTH (BEAKER) (test 16.1 % 11.7-14.4 uzck=864) PLATELET COUNT (BEAKER) (test suqz=422) 185 K/CU MM 150-450 MEAN PLATELET VOLUME (BEAKER) (test mltj=219) 11.0 fL 9.4-12.3 NUCLEATED RED BLOOD CELLS (BEAKER) (test 0 /100 WBC 0-0 fpgy=553) NEUTROPHILS RELATIVE PERCENT (BEAKER) (test 91 % rxzf=247) LYMPHOCYTES RELATIVE PERCENT (BEAKER) (test 4 % cbbn=124) MONOCYTES RELATIVE PERCENT (BEAKER) (test 4 % kwub=572) EOSINOPHILS RELATIVE PERCENT (BEAKER) (test 0 % vedd=368) BASOPHILS RELATIVE PERCENT (BEAKER) (test 0 % akse=555) NEUTROPHILS ABSOLUTE COUNT (BEAKER) (test 9.34 K/ L 1.56-6.13 irhl=946) LYMPHOCYTES ABSOLUTE COUNT (BEAKER) (test 0.37 K/ L 1.18-3.74 lfcp=434) MONOCYTES ABSOLUTE COUNT (BEAKER) (test 0.45 K/ L 0.24-0.36 fqmo=789) EOSINOPHILS ABSOLUTE COUNT (BEAKER) (test 0.00 K/ L 0.04-0.36 sorh=299) BASOPHILS ABSOLUTE COUNT (BEAKER) (test 0.01 K/ L 0.01-0.08 baab=070) IMMATURE GRANULOCYTES-RELATIVE PERCENT (BEAKER) 1 % 0-1 (test caxk=6407) [id number] 13:17:00 Test Item Value Reference Range Comments PROCALCITONIN (BEAKER) (test nxmi=9155) 0.26 ng/mL <0.05 SEPSIS RISK (ng/mL)Low: 0.05-0.50Intermediate: 0.51-2.00High: & gt;=2.01POCT-GLUCOSE [id number] 11:40:00 Test Item Value Reference Range Comments POC-GLUCOSE METER (BEAKER) 162 mg/dL 70-110 TESTED AT [address] (test unrq=4799) [place] [id number] POCT-GLUCOSE [id number] 07:20:00 Test Item Value Reference Range Comments POC-GLUCOSE METER (BEAKER) 97 mg/dL 70-110 TESTED AT [address] (test wwgr=0817) [facility] [id number] CBC W/PLT COUNT & AUTO [id number] 06:11:00 Test Item Value Reference Range Comments WHITE BLOOD CELL COUNT (BEAKER) (test bnho=931) 7.2 K/ L 3.5-10.5 RED BLOOD CELL COUNT (BEAKER) (test fwyq=682) 3.77 M/ L 3.93-5.22 HEMOGLOBIN (BEAKER) (test nqpy=891) 10.1 GM/DL 11.2-15.7 HEMATOCRIT (BEAKER) (test tsmy=997) 32.9 % 34.1-44.9 MEAN CORPUSCULAR VOLUME (BEAKER) (test cpzf=628) 87.3 fL 79.4-94.8 MEAN CORPUSCULAR HEMOGLOBIN (BEAKER) (test 26.8 pg 25.6-32.2 zjdi=140) MEAN CORPUSCULAR HEMOGLOBIN CONC (BEAKER) (test 30.7 GM/DL 32.2-35.5 rciv=891) RED CELL DISTRIBUTION WIDTH (BEAKER) (test 16.2 % 11.7-14.4 wvmw=152) PLATELET COUNT (BEAKER) (test hjdz=736) 222 K/CU MM 150-450 MEAN PLATELET VOLUME (BEAKER) (test qtgr=802) 11.1 fL 9.4-12.3 NUCLEATED RED BLOOD CELLS (BEAKER) (test 0 /100 WBC 0-0 cnlp=108) NEUTROPHILS RELATIVE PERCENT (BEAKER) (test 90 % ocyc=249) LYMPHOCYTES RELATIVE PERCENT (BEAKER) (test 7 % otvm=779) MONOCYTES RELATIVE PERCENT (BEAKER) (test 2 % vmib=908) EOSINOPHILS RELATIVE PERCENT (BEAKER) (test 0 % umyd=785) BASOPHILS RELATIVE PERCENT (BEAKER) (test 0 % welv=309) NEUTROPHILS ABSOLUTE COUNT (BEAKER) (test 6.45 K/ L 1.56-6.13 zlie=422) LYMPHOCYTES ABSOLUTE COUNT (BEAKER) (test 0.53 K/ L 1.18-3.74 nsnb=361) MONOCYTES ABSOLUTE COUNT (BEAKER) (test 0.16 K/ L 0.24-0.36 wwwa=598) EOSINOPHILS ABSOLUTE COUNT (BEAKER) (test 0.00 K/ L 0.04-0.36 ptvx=119) BASOPHILS ABSOLUTE COUNT (BEAKER) (test 0.01 K/ L 0.01-0.08 mrvm=943) IMMATURE GRANULOCYTES-RELATIVE PERCENT (BEAKER) 1 % 0-1 (test skoj=8213) [id number] 05:50:00 Test Item Value Reference Range Comments MAGNESIUM (BEAKER) (test nnzu=879) 1.4 mg/dL 1.6-2.6 COMPREHENSIVE METABOLIC [id number] 05:50:00 Test Item Value Reference Range Comments TOTAL PROTEIN (BEAKER) 5.8 gm/dL 6.0-8.3 (test dnkh=157) ALBUMIN (BEAKER) (test 2.9 g/dL 3.5-5.0 iyou=7938) ALKALINE PHOSPHATASE 130 U/L 40-150 (BEAKER) (test yauj=992) BILIRUBIN TOTAL (BEAKER) 0.4 mg/dL 0.2-1.2 (test uxqs=290) SODIUM (BEAKER) (test 138 meq/L 136-145 ddbc=621) POTASSIUM (BEAKER) (test 3.0 meq/L 3.5-5.1 aaiu=531) CHLORIDE (BEAKER) (test 93 meq/L 98-107 hing=424) CO2 (BEAKER) (test 32 meq/L 22-29 jzns=140) BLOOD UREA NITROGEN 19 mg/dL 7-21 (BEAKER) (test okat=659) CREATININE (BEAKER) (test 0.63 mg/dL 0.57-1.25 jhfa=226) GLUCOSE RANDOM (BEAKER) 104 mg/dL 70-105 (test ejfr=237) CALCIUM (BEAKER) (test 8.3 mg/dL 8.4-10.2 avjf=363) AST (SGOT) (BEAKER) (test 25 U/L 5-34 cnro=691) ALT (SGPT) (BEAKER) (test 29 U/L 6-55 xixb=609) EGFR (BEAKER) (test 96 mL/min/1.73 sq m ESTIMATED GFR IS NOT bfeg=5471) ACCURATE CREATININE CLEARANCE IN PREDICTING GLOMERULAR FILTRATION RATE. ESTIMATED GFR IS NOT APPLICABLE FOR DIALYSIS PATIENTS. BLOOD GAS, [id number] 05:06:00 Test Item Value Reference Range Comments PH ARTERIAL (BEAKER) (test gyxk=549) 7.48 7.35-7.45 PCO2 ARTERIAL (BEAKER) (test nlai=248) 49 mmHg 35-45 PO2 ARTERIAL (BEAKER) (test dzoa=086) 77 mmHg 80-90 O2 SATURATION ARTERIAL (BEAKER) (test pfkn=671) 96.0 % 96.0-97.0 HCO3 ARTERIAL (BEAKER) (test wlna=917) 36 mmol/L 21-29 BASE EXCESS ARTERIAL (BEAKER) (test oaha=713) 10.7 mmol/L -2.0-3.0 PATIENT TEMPERATURE (BEAKER) (test jcqg=2678) 37.0 C FIO2 (BEAKER) (test tpzx=6958) 24.0 % HEPATITIS C [id number] 01:28:00 Test Item Value Reference Range Comments HEPATITIS C ANTIBODY (BEAKER) (test zlry=741) Equivocal Nonreactive RAPID INFLUENZA A&B [id number] 22:53:00 Test Item Value Reference Range Comments RAPID INFLUENZA A AG (BEAKER) (test Negative Negative, Inconclusive rhnl=5711) RAPID INFLUENZA B AG (BEAKER) (test Negative Negative, Inconclusive acns=7186) URINALYSIS W/ [id number] 22:38:00 Test Item Value Reference Range Comments COLOR (BEAKER) (test wjob=827) Yellow CLARITY (BEAKER) (test jjsx=229) Clear SPECIFIC GRAVITY UA (BEAKER) (test olym=863) 1.019 1.001-1.035 PH UA (BEAKER) (test hmch=646) 5.0 5.0-8.0 PROTEIN UA (BEAKER) (test dqjo=361) 10 mg/dL Negative GLUCOSE UA (BEAKER) (test durv=801) Negative Negative KETONES UA (BEAKER) (test uqgx=366) 80 mg/dL Negative BILIRUBIN UA (BEAKER) (test xlpz=962) Negative Negative BLOOD UA (BEAKER) (test ccqv=987) Negative Negative NITRITE UA (BEAKER) (test eokd=265) Negative Negative LEUKOCYTE ESTERASE UA (BEAKER) (test mbuv=106) Small Negative UROBILINOGEN UA (BEAKER) (test ensp=783) 0.2 mg/dL 0.2-1.0 RBC UA (BEAKER) (test gpzz=585) 1 /HPF WBC UA (BEAKER) (test awpb=716) 9 /HPF BACTERIA (BEAKER) (test oqwj=268) Rare MUCUS (BEAKER) (test tdza=6714) Rare SQUAMOUS EPITHELIAL (BEAKER) (test fzvp=875) 1 /HPF CASTS (BEAKER) (test zpzp=1907) 2 /LPF CRYSTALS, URINE (BEAKER) (test qtin=5340) Rare SOURCE(BEAKER) (test yuab=0623) Urine, [place] HEPATITIS B CORE ANTIBODY, [id number] 22:36:00 Test Item Value Reference Range Comments HEPATITIS B CORE TOTAL ANTIBODY (BEAKER) (test Nonreactive Nonreactive zrzy=166) HIV-1 ANTIGEN WITH HIV-1/2 [id number] 22:36:00 Test Item Value Reference Range Comments HIV-1 ANTIGEN WITH HIV 1\T\2 ANTIBODY (2) Nonreactive Nonreactive (BEAKER) (test wacl=8657) PROTHROMBIN [id number] 22:34:00 Test Item Value Reference Range Comments PROTIME (BEAKER) (test rbwv=949) 14.3 seconds 11.7-14.7 INR (BEAKER) (test tkdn=762) 1.1 <=5.9 RECOMMENDED COUMADIN/WARFARIN INR THERAPY RANGESSTANDARD DOSE: 2.0 - 3.0 Includes: PROPHYLAXIS forvenous thrombosis, systemic embolization; TREATMENT for venous thrombosis and/or pulmonary embolus.HIGH RISK: Target INR is 2.5-3.5 for patients with mechanical heart valves.TROPONIN [id number] 22:24:00 Test Item Value Reference Range Comments TROPONIN I (BEAKER) (test hqfg=655) 0.19 ng/mL 0.00-0.03 Troponin I (TnI) levels [...] NATRIURETIC PEPTIDE (BEAKER) (test 364 pg/mL 0-100 cvfl=628) [id number] 22:14:00 Test Item Value Reference Range Comments PHOSPHORUS (BEAKER) (test lrcm=460) 3.4 mg/dL 2.3-4.7 [id number] 22:14:00 Test Item Value Reference Range Comments MAGNESIUM (BEAKER) (test wcnu=680) 1.7 mg/dL 1.6-2.6 COMPREHENSIVE METABOLIC [id number] 22:14:00 Test Item Value Reference Range Comments TOTAL PROTEIN (BEAKER) 5.5 gm/dL 6.0-8.3 (test wzhj=807) ALBUMIN (BEAKER) (test 2.9 g/dL 3.5-5.0 atnh=9471) ALKALINE PHOSPHATASE 134 U/L 40-150 (BEAKER) (test csnk=130) BILIRUBIN TOTAL (BEAKER) 0.4 mg/dL 0.2-1.2 (test rnmm=916) SODIUM (BEAKER) (test 138 meq/L 136-145 qakh=055) POTASSIUM (BEAKER) (test 3.6 meq/L 3.5-5.1 fdfj=112) CHLORIDE (BEAKER) (test 97 meq/L 98-107 rhlp=307) CO2 (BEAKER) (test 31 meq/L 22-29 kmmj=109) BLOOD UREA NITROGEN 20 mg/dL 7-21 (BEAKER) (test oiau=309) CREATININE (BEAKER) (test 0.58 mg/dL 0.57-1.25 xtvt=006) GLUCOSE RANDOM (BEAKER) 75 mg/dL 70-105 (test vqxm=981) CALCIUM (BEAKER) (test 8.3 mg/dL 8.4-10.2 ixcr=303) AST (SGOT) (BEAKER) (test 31 U/L 5-34 jhgs=267) ALT (SGPT) (BEAKER) (test 30 U/L 6-55 isqt=270) EGFR (BEAKER) (test 106 mL/min/1.73 sq ESTIMATED GFR IS NOT ogos=5368) m ACCURATE CREATININE CLEARANCE IN PREDICTING GLOMERULAR FILTRATION RATE. ESTIMATED GFR IS NOT APPLICABLE FOR DIALYSIS PATIENTS. CBC W/PLT COUNT & AUTO [id number] 22:11:00 Test Item Value Reference Range Comments WHITE BLOOD CELL COUNT (BEAKER) (test ghyv=228) 6.6 K/ L 3.5-10.5 RED BLOOD CELL COUNT (BEAKER) (test ymzc=403) 3.51 M/ L 3.93-5.22 HEMOGLOBIN (BEAKER) (test pgis=376) 9.7 GM/DL 11.2-15.7 HEMATOCRIT (BEAKER) (test xrkj=867) 31.6 % 34.1-44.9 MEAN CORPUSCULAR VOLUME (BEAKER) (test ewgq=913) 90.0 fL 79.4-94.8 MEAN CORPUSCULAR HEMOGLOBIN (BEAKER) (test 27.6 pg 25.6-32.2 xrer=047) MEAN CORPUSCULAR HEMOGLOBIN CONC (BEAKER) (test 30.7 GM/DL 32.2-35.5 xxft=718) RED CELL DISTRIBUTION WIDTH (BEAKER) (test 16.0 % 11.7-14.4 mglr=900) PLATELET COUNT (BEAKER) (test qbvz=446) 197 K/CU MM 150-450 MEAN PLATELET VOLUME (BEAKER) (test vkra=595) 11.0 fL 9.4-12.3 NUCLEATED RED BLOOD CELLS (BEAKER) (test 0 /100 WBC 0-0 jcxd=080) NEUTROPHILS RELATIVE PERCENT (BEAKER) (test 92 % qwhh=305) LYMPHOCYTES RELATIVE PERCENT (BEAKER) (test 6 % bilk=899) MONOCYTES RELATIVE PERCENT (BEAKER) (test 1 % vtlc=662) EOSINOPHILS RELATIVE PERCENT (BEAKER) (test 0 % niye=805) BASOPHILS RELATIVE PERCENT (BEAKER) (test 0 % ctcx=393) NEUTROPHILS ABSOLUTE COUNT (BEAKER) (test 6.08 K/ L 1.56-6.13 mpfw=038) LYMPHOCYTES ABSOLUTE COUNT (BEAKER) (test 0.40 K/ L 1.18-3.74 psmn=932) MONOCYTES ABSOLUTE COUNT (BEAKER) (test 0.08 K/ L 0.24-0.36 pfeh=829) EOSINOPHILS ABSOLUTE COUNT (BEAKER) (test 0.00 K/ L 0.04-0.36 lzyt=481) BASOPHILS ABSOLUTE COUNT (BEAKER) (test 0.01 K/ L 0.01-0.08 jaks=899) IMMATURE GRANULOCYTES-RELATIVE PERCENT (BEAKER) 1 % 0-1 (test xoqu=3089) BLOOD GAS, [id number] 20:15:00 Test Item Value Reference Range Comments PH ARTERIAL (BEAKER) (test mkbn=372) 7.40 7.35-7.45 PCO2 ARTERIAL (BEAKER) (test kegu=935) 58 mmHg 35-45 PO2 ARTERIAL (BEAKER) (test wnks=452) 89 mmHg 80-90 O2 SATURATION ARTERIAL (BEAKER) (test yvhv=309) 96.6 % 96.0-97.0 HCO3 ARTERIAL (BEAKER) (test hsqb=765) 35 mmol/L 21-29 BASE EXCESS ARTERIAL (BEAKER) (test paar=025) 8.7 mmol/L -2.0-3.0 PATIENT TEMPERATURE (BEAKER) (test osnl=1043) 37.0 C FIO2 (BEAKER) (test yboo=8091) 24.0 % RAD, CHEST, 1 VIEW, NON [id number] 19:30:00Post-intubationReason for exam:-& gt;transfer from OSH, intubated/respiratory [...] right rib fracture deformities. Signed: Jalen Simms [facility] Verified Date/Time: 02/04/2017 19: 30:53 Reading Location:[address] Reading Room
--- OUTSIDE RECORDS SUMMARY | 2018-07-26 17:14 | XMS REPORT ---
[...] End Status Dosage System Date Date Pantoprazole [facility] 32425562353 40 MG Orally May Active 1 tablet Sodium Once a day 2017 MiraLax [facility] 21440317787 - Orally Once Active 1 packet a day mixed with 8 ounces of fluid Clonazepam [facility] 89014515873 1 MG Orally Active 1 tablet Once a day Brovana [facility] 16750852757 15 MCG/2ML Active 2 ml Inhalation Twice a day Ergocalciferol [facility] 79188504670 10227 UNIT Active 1 capsule Orally Anoro Ellipta ND 77643790198 62.5mcg/25 mcg Apr 25, Active 1 puff Orally once a 2018 day in AM Triamcinolone [facility] 18512775736 0.5 % August Active 1 application Acetonide Externally 11, to affected Twice a day 2017 area Creon [facility] 12504025461 51567-06876 Active not defined UNIT Orally Metformin HCl [facility] 94899392510 500 MG Orally Active 1 tablet with Twice a day meals Protonix [facility] 55785347766 40 MG Active 1 EACH ONCE A DAY ORALLY Myrbetriq ND 14781013539 25 MG Orally Apr 25, Active 1 tablet Once a day 2018 Lasix [facility] 45450196526 20 MG Orally Active 1 tablet Once a day Methadone HCl [facility] 09943985328 10 MG Orally Active 1 tablet Once a day Protonix [facility] 76812571015 40 Active 1 EACH ONCE A DAY ORALLY Metoprolol [facility] 47286746187 25 MG Orally Active 1 tablet with Tartrate Twice a day food Albuterol-Ipratro [facility] 0 2.5-0.5 MG/3ML Active 3 ml pium Inhalation every 6 hrs Prolia [facility] 13889915259 60 MG/ML Active not defined Subcutaneous ProAir RespiClick [facility] 28640848436 108 (90 Base) Active 2 puffs as MCG/ACT needed Inhalation every 6 hrs Magnesium Oxide [facility] 11453717264 400 MG Orally Active 1 tablet as Once a day needed Results No Known Results Summary Purpose eClinicalWorks Submission
--- OUTSIDE RECORDS SUMMARY | 2018-07-26 17:14 | XMS REPORT ---
[...] Date Clonazepam [facility] 83925544149 1 MG Orally Active 1 tablet Once a day Creon [facility] 22461005900 95244-83389 Active not defined UNIT Orally Triamcinolone ND 95287359232 0.5 % August Active 1 application Acetonide Externally 11, to affected Twice a day 2017 area Metoprolol ND 66231173327 25 MG Orally Active 1 tablet with Tartrate Twice a day food Albuterol-Ipratro ND 0 2.5-0.5 MG/3ML Active 3 ml pium Inhalation every 6 hrs ProAir RespiClick [facility] 34236655123 108 (90 Base) Active 2 puffs as MCG/ACT needed Inhalation every 6 hrs Brovana [facility] 11330185259 15 MCG/2ML Active 2 ml Inhalation Twice a day Protonix [facility] 75962212863 40 MG Active 1 EACH ONCE A DAY ORALLY Metformin HCl [facility] 82249572360 500 MG Orally Active 1 tablet with Twice a day meals Magnesium Oxide [facility] 95898693389 400 MG Orally Active 1 tablet as Once a day needed Pantoprazole [facility] 47557164022 40 MG Orally May Active 1 tablet Sodium Once a day 2017 Methadone HCl [facility] 42641886935 10 MG Orally Active 1 tablet Once a day Lasix [facility] 92080690778 20 MG Orally Active 1 tablet Once a day Medrol [facility] 48554892900 4 MG Orally August Active as directed 2017 Prolia [facility] 52212914110 60 MG/ML Active not defined Subcutaneous MiraLax [facility] 79920201466 - Orally Once Active 1 packet a day mixed with 8 ounces of fluid Ergocalciferol [facility] 34991888144 92241 UNIT Active 1 capsule Orally Results No Known Results Summary Purpose eClinicalWorks Submission
--- OUTSIDE RECORDS SUMMARY | 2018-07-26 17:14 | XMS REPORT ---
[...] Dosage System Date Date Methadone HCl ND 34561089285 10 MG Orally Active 1 tablet Once a day Protonix [facility] 68999795776 40 MG Active 1 EACH ONCE A DAY ORALLY Brovana ND 51308289192 15 MCG/2ML Active 2 ml Inhalation Twice a day ProAir RespiClick [facility] 97994641178 108 (90 Base) Active 2 puffs as MCG/ACT needed Inhalation every 6 hrs Metoprolol ND 59500201793 25 MG Orally Active 1 tablet Tartrate Twice a day with food Pantoprazole ND 56148589765 40 MG Orally March Active 1 tablet Sodium Once a day 2017 Albuterol-Ipratro ND 0 2.5-0.5 MG/3ML Active 3 ml pium Inhalation every 6 hrs Magnesium Oxide ND 66078934407 400 MG Orally Active 1 tablet Once a day as needed Prolia [facility] 32341422455 60 MG/ML Active not Subcutaneous defined MiraLax [facility] 22916982829 - Orally Once a Active 1 packet day mixed with 8 ounces of fluid Ergocalciferol [facility] 82912157487 64196 UNIT Active 1 capsule Orally Metformin HCl [facility] 33605118036 500 MG Orally Active 1 tablet Twice a day with meals Clonazepam [facility] 87272469534 1 MG Orally Active 1 tablet Once a day Creon [facility] 32661026115 76022-65574 Active not UNIT Orally defined Lasix [facility] 64723998202 20 MG Orally Active 1 tablet Once a day Results No Known Results Summary Purpose eClinicalWorks Submission
--- NOTE | 2018-07-26 18:18 | EDPHYS ---
Physician Documentation [facility] Name: Alee Humphrey Age: 63 yrs Sex: Female : 1955 Arrival Date: 07/26/2018 Time: 17:09 Bed 7 Private MD: Carmen Ahuja ED Physician Julio Cesar Arevalo HPI: 07/26 18:21 This 63 yrs old Female presents to ER via Ambulatory with complaints of pm1 Abscess. 18:21 The patient presents with an abscess of the palmar aspect of right forearm. pm1 Description: draining, raised. Onset: The symptoms/episode began/occurred 3 day(s) ago. Possible cause(s): unknown. Associated signs and symptoms: Pertinent positives: discharge, swelling, Pertinent negatives: fever. Modifying factors: the symptoms are alleviated by warm compress, the symptoms are aggravated by squeezing the lesion and expressing the contents, touching. Severity of symptoms: in the emergency department the symptoms are actually worse. The patient has not recently seen a physician, the patient's primary care provider is Dr. Ahuja. Historical: - Allergies: 17:12 Cephalexin Monohydrate; hj 17:12 cyclobenzaprine HCl (Vomiting); hj 17:12 Flexeril; hj 17:12 Keflex (Vomiting); hj - Home Meds: 18:20 baclofen 10 mg Oral tab 1 tab every 6 hrs PRN for pain [Active]; clonazepam 1 mg Oral aa5 tab at bedtime [Active]; Hydrochlorothiazide Oral [Active]; methadone 10 mg Oral tab 4 times a day PRN for pain [Active]; tiotropium bromide inhalation [Active]; - PMHx: 17:12 Anxiety; CHF; chronic back pain; COPD; Depression; hj - PSHx: 17:12 multiple back surgeries; abdomen; hj - Ebola Screening: : No symptoms or risks identified at this time. ROS: 18:21 Constitutional: Negative for fever, chills, and weight loss, Eyes: Negative for injury, pm1 pain, redness, and discharge, ENT: Negative for injury, pain, and discharge, Neck: Negative for injury, pain, and swelling, Cardiovascular: Negative for chest pain, palpitations, and edema, Respiratory: Negative for shortness of breath, cough, wheezing, and pleuritic chest pain, Abdomen/GI: Negative for abdominal pain, nausea, vomiting, diarrhea, and constipation, Back: Negative for injury and pain, : Negative for injury, bleeding, discharge, and swelling, MS/Extremity: Negative for injury and deformity. 18:21 Neuro: Negative for headache, weakness, numbness, tingling, and seizure. 18:21 Skin: Positive for abscess, of the palmar aspect of right forearm. Exam: 18:21 Constitutional: This is a well developed, well nourished patient who is awake, alert, pm1 and in no acute distress. Head/Face: Normocephalic, atraumatic. Eyes: Pupils equal round and reactive to light, extra-ocular motions intact. Lids and lashes normal. Conjunctiva and sclera are non-icteric and not injected. Cornea within normal limits. Periorbital areas with no swelling, redness, or edema. ENT: Nares patent. No nasal discharge, no septal abnormalities noted. Tympanic membranes are normal and external auditory canals are clear. Oropharynx with no redness, swelling, or masses, exudates, or evidence of obstruction, uvula midline. Mucous membranes moist. Neck: Trachea midline, no thyromegaly or masses palpated, and no cervical lymphadenopathy. Supple, full range of motion without nuchal rigidity, or vertebral point tenderness. No Meningismus. Chest/axilla: Normal chest wall appearance and motion. Nontender with no deformity. No lesions are appreciated. Cardiovascular: Regular rate and rhythm with a normal S1 and S2. No gallops, murmurs, or rubs. Normal PMI, no JVD. No pulse deficits. Respiratory: Lungs have equal breath sounds bilaterally, clear to auscultation and percussion. No rales, rhonchi or wheezes noted. No increased work of breathing, no retractions or nasal flaring. Abdomen/GI: Soft, non-tender, with normal bowel sounds. No distension or tympany. No guarding or rebound. No evidence of tenderness throughout. 18:21 Back: kyphosis, that is moderate. 18:21 Skin: Appearance: abscess, that is small, 2 cm x 1 cm area of indurated area. One area of pointing that was deroofed with 18 gauge needed and minuscule amount of white discharge present, of the palmar aspect of right forearm, cellulitis, is not appreciated. 18:21 Neuro: Orientation: is normal, Motor: is normal, moves all fours, Sensation: is normal, no obvious gross deficits. Vital Signs: 17:12 BP 103 / 75; Pulse 91; Resp 18; Temp 100.0; Pulse Ox 95% on R/A; Weight 43.54 kg; hj Height 5 ft. 4 in. (162.56 cm); Pain 10/10; 18:10 Temp 98.3(O); aa5 18:24 BP 91 / 72; Pulse 74; Resp 18; Pulse Ox 96% on R/A; jb1 18:25 Temp 98.2(O); aa5 19:20 BP 118 / 76; Pulse 99; Resp 17; Temp 97.6; Pulse Ox 99% on R/A; rr5 17:12 Body Mass Index 16.48 (43.54 kg, 162.56 cm) hj MDM: 17:58 Patient medically screened. pm1 18:16 Data reviewed: vital signs. Data interpreted: Pulse oximetry: on room air is 95 %. pm1 Interpretation: normal. Counseling: I had a detailed discussion with the patient and/or guardian regarding: the historical points, exam findings, and any diagnostic results supporting the discharge/admit diagnosis, the need for outpatient follow up, to return to the emergency department if symptoms worsen or persist or if there are any questions or concerns that arise at home. Administered Medications: 18:44 Drug: fentaNYL (PF) 25 mcg Route: IM; Site: left deltoid; aa5 19:00 Follow up: Response: No adverse reaction aa5 18:44 Drug: Bactrim (160 mg-800 mg (DS) 1 tablet Route: PO; aa5 19:00 Follow up: Response: No adverse reaction aa5 18:45 Drug: Tetanus-Diphtheria Toxoid Adult 0.5 ml {Reconciling Clerk: [employer]. Exp: aa5 05/10/2020. Lot #: [id number]. } Route: IM; Site: right deltoid; 19:00 Follow up: Response: No adverse reaction aa5 Disposition: 07/27 09:26 Co-signature as Attending Physician, Julio Cesar Arevalo MD. Disposition: 07/26/18 18:17 Discharged to Home. Impression: Cutaneous abscess of right upper limb - forearm. - Condition is Stable. - Discharge Instructions: Skin Abscess. - Prescriptions for Bactrim DS 800- 160 mg Oral Tablet - take 1 tablet by ORAL route every 12 hours for 10 days; 20 tablet. - Medication Reconciliation Form, Thank You Letter, Antibiotic Education, Prescription Opioid Use form. - Follow up: Emergency Department; When: As needed; Reason: Worsening of condition. Follow up: Private Physician; When: 2 - 3 days; Reason: Recheck today's complaints, Continuance of care, Re-evaluation by your physician. - Problem is new. - Symptoms have improved. Signatures: Lian Aceves RN RN aa5 Brian Amin RN RN hj Bravo Vu, FINANCIAL SYSTEMS MANAGER FINANCIAL SYSTEMS MANAGER pm1 Julio Cesar Arevalo MD MD gs Corrections: (The following items were deleted from the chart) 07/26 19:20 18:17 07/26/2018 18:17 Discharged to Home. Impression: Cutaneous abscess of right upper aa5 limb - forearm. Condition is Stable. Forms are Medication Reconciliation Form, Thank You Letter, Antibiotic Education, Prescription Opioid Use. Follow up: Emergency Department; When: As needed; Reason: Worsening of condition. Follow up: Private Physician; When: 2 - 3 days; Reason: Recheck today's complaints, Continuance of care, Re-evaluation by your physician. Problem is new. Symptoms have improved. pm1
--- NOTE | 2018-07-26 18:18 | ER ---
Nurse's Notes [facility] Name: Alee Humphrey Age: 63 yrs Sex: Female : 1955 Arrival Date: 07/26/2018 Time: 17:09 Bed 7 Private MD: Carmen Ahuja Diagnosis: Cutaneous abscess of right upper limb-forearm Presentation: 07/26 17:10 Presenting complaint: Patient states: i have this abscess on my R arm; noticed it hj Monday evening; it has been growing since i noticed it; denies fever and chills;. Transition of care: patient was not received from another setting of care. Onset of symptoms was July 26, 2018. Risk Assessment: Do you want to hurt yourself or someone else? Patient reports no desire to harm self or others. Initial Sepsis Screen: Does the patient meet any 2 criteria? No. Patient's initial sepsis screen is negative. Does the patient have a suspected source of infection? No. Patient's initial sepsis screen is negative. Care prior to arrival: None. 17:10 Method Of Arrival: Ambulatory 17:10 Acuity: FARHAT 4 hj Historical: - Allergies: 17:12 Cephalexin Monohydrate; hj 17:12 cyclobenzaprine HCl (Vomiting); hj 17:12 Flexeril; hj 17:12 Keflex (Vomiting); hj - Home Meds: 18:20 baclofen 10 mg Oral tab 1 tab every 6 hrs PRN for pain [Active]; clonazepam 1 mg Oral aa5 tab at bedtime [Active]; Hydrochlorothiazide Oral [Active]; methadone 10 mg Oral tab 4 times a day PRN for pain [Active]; tiotropium bromide inhalation [Active]; - PMHx: 17:12 Anxiety; CHF; chronic back pain; COPD; Depression; hj - PSHx: 17:12 multiple back surgeries; abdomen; hj - Ebola Screening: : No symptoms or risks identified at this time. Screenin:10 Abuse screen: Denies threats or abuse. Nutritional screening: No deficits noted. aa5 Tuberculosis screening: No symptoms or risk factors identified. Fall Risk None identified. Assessment: 18:10 General: Appears uncomfortable, Behavior is calm, cooperative. Pain: Complains of pain aa5 in palmar aspect of right forearm Pain does not radiate. Pain currently is 10 out of 10 on a pain scale. Quality of pain is described as tender, Is continuous. Neuro: Level of Consciousness is awake, alert, obeys commands, Oriented to person, place, time, situation. Cardiovascular: Patient's skin is warm and dry. Respiratory: Airway is patent Respiratory effort is even, unlabored, Respiratory pattern is regular, symmetrical. GI: No signs and/or symptoms were reported involving the gastrointestinal system. : No signs and/or symptoms were reported regarding the genitourinary system. EENT: No signs and/or symptoms were reported regarding the EENT system. Derm: Skin is pink, warm \T\ dry. 2 raised areas noted to palmar aspect of right forearm with surrounding redness and swelling noted. Sites lanced by PA without any fluid noted. 19:19 Reassessment: Patient is alert, oriented x 3, equal unlabored respirations, skin aa5 warm/dry/pink. Vital Signs: 17:12 BP 103 / 75; Pulse 91; Resp 18; Temp 100.0; Pulse Ox 95% on R/A; Weight 43.54 kg; hj Height 5 ft. 4 in. (162.56 cm); Pain 10/10; 18:10 Temp 98.3(O); aa5 18:24 BP 91 / 72; Pulse 74; Resp 18; Pulse Ox 96% on R/A; jb1 18:25 Temp 98.2(O); aa5 19:20 BP 118 / 76; Pulse 99; Resp 17; Temp 97.6; Pulse Ox 99% on R/A; rr5 17:12 Body Mass Index 16.48 (43.54 kg, 162.56 cm) ED Course: 17:09 Patient arrived in ED. mr 17:09 Carmen Ahuja MD is Private Physician. mr 17:12 Triage completed. hj 17:14 Arm band placed on left wrist. hj 17:58 Bravo Vu NP is PHCP. pm1 17:58 Julio Cesar Arevalo MD is Attending Physician. pm1 18:04 Lian Aceves, GUS is Primary Nurse. aa5 18:10 Patient has correct armband on for positive identification. Bed in low position. Call aa5 light in reach. Side rails up X 1. Adult w/ patient. 19:19 No provider procedures requiring assistance completed. Patient did not have IV access aa5 during this emergency room visit. 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 Exp: aa5 05/10/2020. Lot #: [id number]. } Route: IM; Site: right deltoid; 19:00 Follow up: Response: No adverse reaction aa5 Outcome: 18:17 Discharge ordered by . pm1 19:19 Discharged to home via wheelchair, with family. aa5 19:19 Condition: stable 19:19 Discharge instructions given to patient, Instructed on discharge instructions, follow up and referral plans. medication usage, Demonstrated understanding of instructions, follow-up care, medications, Prescriptions given X 1. 19:20 Patient left the ED. aa5 Signatures: Ruy Hernandez jb1 Nakia Segura mr AcevesLian, RN RN aa5 Brian Amin RN RN Bravo Vu, MENG PAPER PATTERN INSPECTOR pm1 Sarthak Sauer, GUS RN rr5 Corrections: (The following items were deleted from the chart) 17:14 17:12 Pulse 91bpm; Resp 18bpm; Pulse Ox 95% RA; Temp 100.0F; 43.54 kg; Height 5 ft. 4 hj in.; BMI: 16.4; Pain 10/10; hj 19:58 19:30 BP 118 / 76; Pulse 99bpm; Resp 17bpm; Pulse Ox 99% RA; Temp 97.6F; rr5 rr5
[2018-07-26] MEDS ORDERED: SMZ./TMP. 800/160 MG TABLET ONE (18:43)
[2018-07-26] MEDS ORDERED: FENTANYL CITR 100 MCG/2 ML ONE (18:43)
[2018-07-26] MEDS ORDERED: TETANUS & DIPHTHERIA TOX,ADULT 0.5 ML VIAL ONE (18:43)
[2018-07-26 19:35] VITALS: TEMP 98.3
[2018-07-26 19:37] VITALS: BP 91/72; O2SAT 96
== END 2018-07-26 19:20 | disposition home or self-care (01) ==
LOC: ER 17:05
DX: L02.413 Cutaneous abscess of right upper limb (principal); J44.9 Chronic obstructive pulmonary disease, unspecified; G89.29 Other chronic pain; M54.9 Dorsalgia, unspecified; F41.9 Anxiety disorder, unspecified; I50.9 Heart failure, unspecified; Z23 Encounter for immunization
CPT/HCPCS: 90471; 90714; 96372; 99283; J3010

== ENCOUNTER 2018-10-28 14:29 | Inpatient (IN) | payer OTHER ==
--- OUTSIDE RECORDS SUMMARY | 2018-10-28 14:31 | XMS REPORT | Clinical Summary ---
:1955 Author Organization [facility] Address [address] [place] [address] Care Team Providers Name Role Phone Manuel [...] Not on file Results Not on fileafter 10/27/2017 Insurance Payer Benefit Plan / Group Subscriber ID Type Phone Address MEDICARE MEDICARE A B xxxxxxxxxx Medicare MEDICAID MEDICAID [facility] xxxxxxxxx Medicaid Advance Directives For more information, please contact:[place] [phone] [place], [place] [phone] Code Status Date Activated Date Inactivated Comments Full Code 02/04/2017 6:02 PM 02/18/2017 1:43 AM This code status was determined by: Patient
--- OUTSIDE RECORDS SUMMARY | 2018-10-28 14:34 | XMS REPORT ---
:1955 [facility] [address] [place] [id number] Care Team Providers Name Role Phone LYNN [...] (BEAKER) (test 175 mg/dL 70-110 TESTED AT [address] tcwg=8309) [facility] [address] POCT-GLUCOSE [id number] 08:27:00 Test Item Value Reference Range Comments POC-GLUCOSE METER (BEAKER) 83 mg/dL 70-110 TESTED AT [address] (test bioq=9743) [facility] [address] CBC W/PLT COUNT & AUTO [id number] 07:16:00 Test Item Value Reference Range Comments WHITE BLOOD CELL COUNT (BEAKER) (test mxhw=707) 17.1 K/ L 3.5-10.5 RED BLOOD CELL COUNT (BEAKER) (test mlxz=927) 3.96 M/ L 3.93-5.22 HEMOGLOBIN (BEAKER) (test qrmb=169) 10.7 GM/DL 11.2-15.7 HEMATOCRIT (BEAKER) (test lodf=118) 34.8 % 34.1-44.9 MEAN CORPUSCULAR VOLUME (BEAKER) (test ucdd=559) 87.9 fL 79.4-94.8 MEAN CORPUSCULAR HEMOGLOBIN (BEAKER) (test 27.0 pg 25.6-32.2 uiit=770) MEAN CORPUSCULAR HEMOGLOBIN CONC (BEAKER) (test 30.7 GM/DL 32.2-35.5 vxmw=015) RED CELL DISTRIBUTION WIDTH (BEAKER) (test 15.6 % 11.7-14.4 mycl=783) PLATELET COUNT (BEAKER) (test zlrs=694) 334 K/CU MM 150-450 MEAN PLATELET VOLUME (BEAKER) (test hyfs=086) 11.1 fL 9.4-12.3 NUCLEATED RED BLOOD CELLS (BEAKER) (test 0 /100 WBC 0-0 vswk=014) NEUTROPHILS RELATIVE PERCENT (BEAKER) (test 84 % tlpy=583) LYMPHOCYTES RELATIVE PERCENT (BEAKER) (test 8 % xvay=941) MONOCYTES RELATIVE PERCENT (BEAKER) (test 7 % wgdd=885) EOSINOPHILS RELATIVE PERCENT (BEAKER) (test 0 % vjfe=356) BASOPHILS RELATIVE PERCENT (BEAKER) (test 0 % kfws=854) NEUTROPHILS ABSOLUTE COUNT (BEAKER) (test 14.26 K/ L 1.56-6.13 hfho=410) LYMPHOCYTES ABSOLUTE COUNT (BEAKER) (test 1.43 K/ L 1.18-3.74 efaf=132) MONOCYTES ABSOLUTE COUNT (BEAKER) (test 1.10 K/ L 0.24-0.36 xono=685) EOSINOPHILS ABSOLUTE COUNT (BEAKER) (test 0.05 K/ L 0.04-0.36 zqef=108) BASOPHILS ABSOLUTE COUNT (BEAKER) (test 0.01 K/ L 0.01-0.08 ntjy=326) IMMATURE GRANULOCYTES-RELATIVE PERCENT (BEAKER) 1 % 0-1 (test jwku=4932) [id number] 07:00:00 Test Item Value Reference Range Comments MAGNESIUM (BEAKER) (test mgpe=935) 2.2 mg/dL 1.6-2.6 BASIC METABOLIC [id number] 07:00:00 Test Item Value Reference Range Comments SODIUM (BEAKER) (test 133 meq/L 136-145 gewz=583) POTASSIUM (BEAKER) (test 4.3 meq/L 3.5-5.1 mopk=373) CHLORIDE (BEAKER) (test 91 meq/L 98-107 mvyh=534) CO2 (BEAKER) (test 34 meq/L 22-29 vxtp=738) BLOOD UREA NITROGEN 19 mg/dL 7-21 (BEAKER) (test nytd=911) CREATININE (BEAKER) (test 0.61 mg/dL 0.57-1.25 ydbt=473) GLUCOSE RANDOM (BEAKER) 61 mg/dL 70-105 (test pahc=917) CALCIUM (BEAKER) (test 8.9 mg/dL 8.4-10.2 mwrz=615) EGFR (BEAKER) (test 100 mL/min/1.73 sq m ESTIMATED GFR IS NOT ilpk=9193) ACCURATE CREATININE CLEARANCE IN PREDICTING GLOMERULAR FILTRATION RATE. ESTIMATED GFR IS NOT APPLICABLE FOR DIALYSIS PATIENTS. POCT-GLUCOSE [id number] 20:42:00 Test Item Value Reference Range Comments POC-GLUCOSE METER (BEAKER) 183 mg/dL 70-110 TESTED AT [address] (test wjvr=2749) [place] [id number] POCT-GLUCOSE [id number] 11:38:00 Test Item Value Reference Range Comments POC-GLUCOSE METER (BEAKER) 130 mg/dL 70-110 TESTED AT [address] (test ifts=3560) [facility] [address] POCT-GLUCOSE [id number] 08:08:00 Test Item Value Reference Range Comments POC-GLUCOSE METER (BEAKER) 67 mg/dL 70-110 Will Repeat Test/TESTED AT (test gnri=2550) [address] [address] [id number] 06:51:00 Test Item Value Reference Range Comments MAGNESIUM (BEAKER) (test fsvs=750) 2.0 mg/dL 1.6-2.6 BASIC METABOLIC [id number] 06:51:00 Test Item Value Reference Range Comments SODIUM (BEAKER) (test 134 meq/L 136-145 kopi=767) POTASSIUM (BEAKER) (test 4.4 meq/L 3.5-5.1 ubov=296) CHLORIDE (BEAKER) (test 92 meq/L 98-107 qkew=704) CO2 (BEAKER) (test 34 meq/L 22-29 fkou=505) BLOOD UREA NITROGEN 17 mg/dL 7-21 (BEAKER) (test yqwy=968) CREATININE (BEAKER) (test 0.56 mg/dL 0.57-1.25 ypxr=520) GLUCOSE RANDOM (BEAKER) 66 mg/dL 70-105 (test atuz=905) CALCIUM (BEAKER) (test 8.8 mg/dL 8.4-10.2 njpl=485) EGFR (BEAKER) (test 110 mL/min/1.73 sq m ESTIMATED GFR IS NOT dnqs=9743) ACCURATE CREATININE CLEARANCE IN PREDICTING GLOMERULAR FILTRATION RATE. ESTIMATED GFR IS NOT APPLICABLE FOR DIALYSIS PATIENTS. CBC W/PLT COUNT & AUTO [id number] 06:00:00 Test Item Value Reference Range Comments WHITE BLOOD CELL COUNT (BEAKER) (test qdbj=964) 17.0 K/ L 3.5-10.5 RED BLOOD CELL COUNT (BEAKER) (test rkqh=994) 4.16 M/ L 3.93-5.22 HEMOGLOBIN (BEAKER) (test ltqv=755) 11.1 GM/DL 11.2-15.7 HEMATOCRIT (BEAKER) (test veue=176) 36.3 % 34.1-44.9 MEAN CORPUSCULAR VOLUME (BEAKER) (test yoxd=408) 87.3 fL 79.4-94.8 MEAN CORPUSCULAR HEMOGLOBIN (BEAKER) (test 26.7 pg 25.6-32.2 fxnh=735) MEAN CORPUSCULAR HEMOGLOBIN CONC (BEAKER) (test 30.6 GM/DL 32.2-35.5 chxg=459) RED CELL DISTRIBUTION WIDTH (BEAKER) (test 15.6 % 11.7-14.4 fujv=884) PLATELET COUNT (BEAKER) (test kemm=939) 293 K/CU MM 150-450 MEAN PLATELET VOLUME (BEAKER) (test osrf=724) 11.7 fL 9.4-12.3 NUCLEATED RED BLOOD CELLS (BEAKER) (test 0 /100 WBC 0-0 ncff=172) NEUTROPHILS RELATIVE PERCENT (BEAKER) (test 81 % iapk=041) LYMPHOCYTES RELATIVE PERCENT (BEAKER) (test 9 % mqaf=435) MONOCYTES RELATIVE PERCENT (BEAKER) (test 8 % hild=882) EOSINOPHILS RELATIVE PERCENT (BEAKER) (test 1 % sgeb=426) BASOPHILS RELATIVE PERCENT (BEAKER) (test 0 % muhh=622) NEUTROPHILS ABSOLUTE COUNT (BEAKER) (test 13.77 K/ L 1.56-6.13 iyme=333) LYMPHOCYTES ABSOLUTE COUNT (BEAKER) (test 1.51 K/ L 1.18-3.74 kmor=918) MONOCYTES ABSOLUTE COUNT (BEAKER) (test 1.35 K/ L 0.24-0.36 ucuu=744) EOSINOPHILS ABSOLUTE COUNT (BEAKER) (test 0.08 K/ L 0.04-0.36 kbve=497) BASOPHILS ABSOLUTE COUNT (BEAKER) (test 0.04 K/ L 0.01-0.08 mvew=689) IMMATURE GRANULOCYTES-RELATIVE PERCENT (BEAKER) 1 % 0-1 (test txpu=6523) POCT-GLUCOSE [id number] 21:21:00 Test Item Value Reference Range Comments POC-GLUCOSE METER (BEAKER) 177 mg/dL 70-110 TESTED AT [address] (test mscm=2672) [facility] [address] POCT-GLUCOSE [id number] 17:52:00 Test Item Value Reference Range Comments POC-GLUCOSE METER (BEAKER) 191 mg/dL 70-110 TESTED AT [address] (test ekvc=2411) [facility] [address] POCT-GLUCOSE [id number] 11:46:00 Test Item Value Reference Range Comments POC-GLUCOSE METER (BEAKER) 145 mg/dL 70-110 TESTED AT [address] (test klhf=3535) [facility] [address] POCT-GLUCOSE [id number] 07:59:00 Test Item Value Reference Range Comments POC-GLUCOSE METER (BEAKER) 89 mg/dL 70-110 TESTED AT [address] (test dcod=1374) [facility] [address] [id number] 04:29:00 Test Item Value Reference Range Comments MAGNESIUM (BEAKER) (test ummm=868) 2.1 mg/dL 1.6-2.6 BASIC METABOLIC [id number] 04:29:00 Test Item Value Reference Range Comments SODIUM (BEAKER) (test 134 meq/L 136-145 lhki=850) POTASSIUM (BEAKER) (test 4.7 meq/L 3.5-5.1 ystp=319) CHLORIDE (BEAKER) (test 91 meq/L 98-107 gipx=838) CO2 (BEAKER) (test 36 meq/L 22-29 sueq=265) BLOOD UREA NITROGEN 14 mg/dL 7-21 (BEAKER) (test ioul=692) CREATININE (BEAKER) (test 0.56 mg/dL 0.57-1.25 kdvk=859) GLUCOSE RANDOM (BEAKER) 138 mg/dL 70-105 (test vbbe=179) CALCIUM (BEAKER) (test 8.3 mg/dL 8.4-10.2 yhkb=879) EGFR (BEAKER) (test 110 mL/min/1.73 sq m ESTIMATED GFR IS NOT pisz=4819) ACCURATE CREATININE CLEARANCE IN PREDICTING GLOMERULAR FILTRATION RATE. ESTIMATED GFR IS NOT APPLICABLE FOR DIALYSIS PATIENTS. CBC W/PLT COUNT & AUTO [id number] 04:18:00 Test Item Value Reference Range Comments WHITE BLOOD CELL COUNT (BEAKER) (test gykz=585) 14.1 K/ L 3.5-10.5 RED BLOOD CELL COUNT (BEAKER) (test dbfk=272) 4.06 M/ L 3.93-5.22 HEMOGLOBIN (BEAKER) (test wjvw=431) 11.1 GM/DL 11.2-15.7 HEMATOCRIT (BEAKER) (test akgx=664) 35.9 % 34.1-44.9 MEAN CORPUSCULAR VOLUME (BEAKER) (test owdb=370) 88.4 fL 79.4-94.8 MEAN CORPUSCULAR HEMOGLOBIN (BEAKER) (test 27.3 pg 25.6-32.2 eywv=237) MEAN CORPUSCULAR HEMOGLOBIN CONC (BEAKER) (test 30.9 GM/DL 32.2-35.5 xiqm=605) RED CELL DISTRIBUTION WIDTH (BEAKER) (test 15.5 % 11.7-14.4 wwed=696) PLATELET COUNT (BEAKER) (test nmid=008) 309 K/CU MM 150-450 MEAN PLATELET VOLUME (BEAKER) (test glas=773) 10.7 fL 9.4-12.3 NUCLEATED RED BLOOD CELLS (BEAKER) (test 0 /100 WBC 0-0 wmmx=549) NEUTROPHILS RELATIVE PERCENT (BEAKER) (test 89 % iczw=389) LYMPHOCYTES RELATIVE PERCENT (BEAKER) (test 5 % rgkn=291) MONOCYTES RELATIVE PERCENT (BEAKER) (test 5 % znfp=888) EOSINOPHILS RELATIVE PERCENT (BEAKER) (test 0 % jkcy=861) BASOPHILS RELATIVE PERCENT (BEAKER) (test 0 % gydl=512) NEUTROPHILS ABSOLUTE COUNT (BEAKER) (test 12.50 K/ L 1.56-6.13 sbhf=151) LYMPHOCYTES ABSOLUTE COUNT (BEAKER) (test 0.68 K/ L 1.18-3.74 krel=354) MONOCYTES ABSOLUTE COUNT (BEAKER) (test 0.74 K/ L 0.24-0.36 bzeg=906) EOSINOPHILS ABSOLUTE COUNT (BEAKER) (test 0.00 K/ L 0.04-0.36 zzrj=045) BASOPHILS ABSOLUTE COUNT (BEAKER) (test 0.01 K/ L 0.01-0.08 xguv=677) IMMATURE GRANULOCYTES-RELATIVE PERCENT (BEAKER) 1 % 0-1 (test tkih=4693) POCT-GLUCOSE [id number] 21:24:00 Test Item Value Reference Range Comments POC-GLUCOSE METER (BEAKER) 257 mg/dL 70-110 TESTED AT [address] (test aanp=4833) [place] [id number] POCT-GLUCOSE [id number] 17:18:00 Test Item Value Reference Range Comments POC-GLUCOSE METER (BEAKER) 171 mg/dL 70-110 TESTED AT [address] (test cqkq=7845) [place] [id number] POCT-GLUCOSE [id number] 12:43:00 Test Item Value Reference Range Comments POC-GLUCOSE METER (BEAKER) 178 mg/dL 70-110 TESTED AT [address] (test olbo=4882) [place] [id number] CBC W/PLT COUNT & AUTO [id number] 09:33:00 Test Item Value Reference Range Comments WHITE BLOOD CELL COUNT (BEAKER) (test nvvg=347) 15.2 K/ L 3.5-10.5 RED BLOOD CELL COUNT (BEAKER) (test veda=175) 4.36 M/ L 3.93-5.22 HEMOGLOBIN (BEAKER) (test xonw=880) 11.8 GM/DL 11.2-15.7 HEMATOCRIT (BEAKER) (test sazl=828) 37.6 % 34.1-44.9 MEAN CORPUSCULAR VOLUME (BEAKER) (test uldi=864) 86.2 fL 79.4-94.8 MEAN CORPUSCULAR HEMOGLOBIN (BEAKER) (test 27.1 pg 25.6-32.2 xykg=378) MEAN CORPUSCULAR HEMOGLOBIN CONC (BEAKER) (test 31.4 GM/DL 32.2-35.5 lijs=183) RED CELL DISTRIBUTION WIDTH (BEAKER) (test 15.6 % 11.7-14.4 bxui=215) PLATELET COUNT (BEAKER) (test vgpi=375) 289 K/CU MM 150-450 MEAN PLATELET VOLUME (BEAKER) (test xrld=068) 12.1 fL 9.4-12.3 NUCLEATED RED BLOOD CELLS (BEAKER) (test 0 /100 WBC 0-0 qduj=213) NEUTROPHILS RELATIVE PERCENT (BEAKER) (test 78 % dpks=302) LYMPHOCYTES RELATIVE PERCENT (BEAKER) (test 10 % alvp=176) MONOCYTES RELATIVE PERCENT (BEAKER) (test 10 % enjb=299) EOSINOPHILS RELATIVE PERCENT (BEAKER) (test 1 % lfod=294) BASOPHILS RELATIVE PERCENT (BEAKER) (test 0 % kkrn=436) NEUTROPHILS ABSOLUTE COUNT (BEAKER) (test 11.75 K/ L 1.56-6.13 twje=137) LYMPHOCYTES ABSOLUTE COUNT (BEAKER) (test 1.54 K/ L 1.18-3.74 ezwh=791) MONOCYTES ABSOLUTE COUNT (BEAKER) (test 1.56 K/ L 0.24-0.36 wnrq=364) EOSINOPHILS ABSOLUTE COUNT (BEAKER) (test 0.08 K/ L 0.04-0.36 lkvp=794) BASOPHILS ABSOLUTE COUNT (BEAKER) (test 0.03 K/ L 0.01-0.08 zuzq=210) IMMATURE GRANULOCYTES-RELATIVE PERCENT (BEAKER) 1 % 0-1 (test gzkg=5875) POCT-GLUCOSE [id number] 07:00:00 Test Item Value Reference Range Comments POC-GLUCOSE METER (BEAKER) 101 mg/dL 70-110 TESTED AT [facility] [address] [facility] (test wtkz=4345) [facility] [address] [id number] 05:09:00 Test Item Value Reference Range Comments MAGNESIUM (BEAKER) (test 2.3 mg/dL 1.6-2.6 Specimen slightly hemolyzed foel=382) BASIC METABOLIC [id number] 05:09:00 Test Item Value Reference Range Comments SODIUM (BEAKER) (test 134 meq/L 136-145 cwyk=966) POTASSIUM (BEAKER) (test 5.1 meq/L 3.5-5.1 Specimen slightly poyd=906) hemolyzed CHLORIDE (BEAKER) (test 96 meq/L 98-107 jfpe=977) CO2 (BEAKER) (test 33 meq/L 22-29 oodu=408) BLOOD UREA NITROGEN 13 mg/dL 7-21 (BEAKER) (test htlt=387) CREATININE (BEAKER) (test 0.48 mg/dL 0.57-1.25 Specimen slightly ljql=701) hemolyzed GLUCOSE RANDOM (BEAKER) 73 mg/dL 70-105 (test pflf=506) CALCIUM (BEAKER) (test 8.3 mg/dL 8.4-10.2 dggk=486) EGFR (BEAKER) (test 131 mL/min/1.73 sq m ESTIMATED GFR IS NOT bqae=9156) ACCURATE CREATININE CLEARANCE IN PREDICTING GLOMERULAR FILTRATION RATE. ESTIMATED GFR IS NOT APPLICABLE FOR DIALYSIS PATIENTS. POCT-GLUCOSE [id number] 21:25:00 Test Item Value Reference Range Comments POC-GLUCOSE METER (BEAKER) 334 mg/dL 70-110 Will Repeat Test/TESTED AT (test jaxx=3675) [address] [address] BLOOD GAS, [id number] 12:45:00 Test Item Value Reference Range Comments PH ARTERIAL (BEAKER) (test gmre=823) 7.47 7.35-7.45 PCO2 ARTERIAL (BEAKER) (test wvez=642) 60 mmHg 35-45 PO2 ARTERIAL (BEAKER) (test gebq=043) 79 mmHg 80-90 O2 SATURATION ARTERIAL (BEAKER) (test ndfb=503) 96.2 % 96.0-97.0 HCO3 ARTERIAL (BEAKER) (test sedu=605) 42 mmol/L 21-29 BASE EXCESS ARTERIAL (BEAKER) (test ozoy=187) 15.6 mmol/L -2.0-3.0 PATIENT TEMPERATURE (BEAKER) (test tnnu=4865) 36.7 C FIO2 (BEAKER) (test kltd=2309) 32.0 % POCT-GLUCOSE [id number] 11:48:00 Test Item Value Reference Range Comments POC-GLUCOSE METER (BEAKER) 140 mg/dL 70-110 TESTED AT [address] (test vwha=5968) [facility] [address] BASIC METABOLIC [id number] 09:02:00 Test Item Value Reference Range Comments SODIUM (BEAKER) (test 135 meq/L 136-145 poeh=767) POTASSIUM (BEAKER) (test 3.4 meq/L 3.5-5.1 jtxl=698) CHLORIDE (BEAKER) (test 89 meq/L 98-107 whwj=021) CO2 (BEAKER) (test 43 meq/L 22-29 mbtc=914) BLOOD UREA NITROGEN 15 mg/dL 7-21 (BEAKER) (test grag=347) CREATININE (BEAKER) (test 0.48 mg/dL 0.57-1.25 krqz=243) GLUCOSE RANDOM (BEAKER) 77 mg/dL 70-105 (test ypqq=558) CALCIUM (BEAKER) (test 8.1 mg/dL 8.4-10.2 wfmf=666) EGFR (BEAKER) (test 131 mL/min/1.73 sq m ESTIMATED GFR IS NOT fkfh=4338) ACCURATE CREATININE CLEARANCE IN PREDICTING GLOMERULAR FILTRATION RATE. ESTIMATED GFR IS NOT APPLICABLE FOR DIALYSIS PATIENTS. POCT-GLUCOSE [id number] 06:50:00 Test Item Value Reference Range Comments POC-GLUCOSE METER (BEAKER) 92 mg/dL 70-110 TESTED AT [facility] [address] [facility] (test ukix=5972) [facility] [address] CBC W/PLT COUNT & AUTO [id number] 04:12:00 Test Item Value Reference Range Comments WHITE BLOOD CELL COUNT (BEAKER) (test ahpe=619) 11.7 K/ L 3.5-10.5 RED BLOOD CELL COUNT (BEAKER) (test ivyl=231) 3.67 M/ L 3.93-5.22 HEMOGLOBIN (BEAKER) (test nmlb=436) 9.9 GM/DL 11.2-15.7 HEMATOCRIT (BEAKER) (test ivvd=834) 32.5 % 34.1-44.9 MEAN CORPUSCULAR VOLUME (BEAKER) (test pmol=675) 88.6 fL 79.4-94.8 MEAN CORPUSCULAR HEMOGLOBIN (BEAKER) (test 27.0 pg 25.6-32.2 jxgp=979) MEAN CORPUSCULAR HEMOGLOBIN CONC (BEAKER) (test 30.5 GM/DL 32.2-35.5 vypg=963) RED CELL DISTRIBUTION WIDTH (BEAKER) (test 15.2 % 11.7-14.4 tjaf=111) PLATELET COUNT (BEAKER) (test nrpt=173) 263 K/CU MM 150-450 MEAN PLATELET VOLUME (BEAKER) (test efzf=218) 10.4 fL 9.4-12.3 NUCLEATED RED BLOOD CELLS (BEAKER) (test 0 /100 WBC 0-0 akiz=585) NEUTROPHILS RELATIVE PERCENT (BEAKER) (test 78 % kqij=298) LYMPHOCYTES RELATIVE PERCENT (BEAKER) (test 11 % mavy=620) MONOCYTES RELATIVE PERCENT (BEAKER) (test 10 % srhk=803) EOSINOPHILS RELATIVE PERCENT (BEAKER) (test 0 % kcos=516) BASOPHILS RELATIVE PERCENT (BEAKER) (test 0 % pkui=887) NEUTROPHILS ABSOLUTE COUNT (BEAKER) (test 9.19 K/ L 1.56-6.13 rnif=231) LYMPHOCYTES ABSOLUTE COUNT (BEAKER) (test 1.26 K/ L 1.18-3.74 pjmy=483) MONOCYTES ABSOLUTE COUNT (BEAKER) (test 1.15 K/ L 0.24-0.36 nrwo=618) EOSINOPHILS ABSOLUTE COUNT (BEAKER) (test 0.02 K/ L 0.04-0.36 czhq=337) BASOPHILS ABSOLUTE COUNT (BEAKER) (test 0.01 K/ L 0.01-0.08 zzei=452) IMMATURE GRANULOCYTES-RELATIVE PERCENT (BEAKER) 1 % 0-1 (test zsbr=7887) POCT-GLUCOSE [id number] 21:22:00 Test Item Value Reference Range Comments POC-GLUCOSE METER (BEAKER) 198 mg/dL 70-110 TESTED AT [address] (test nkxw=1162) [place] [address] POCT-GLUCOSE [id number] 16:57:00 Test Item Value Reference Range Comments POC-GLUCOSE METER (BEAKER) 297 mg/dL 70-110 TESTED AT [place] [id number] [facility] (test imks=6284) [place] [address] SPUTUM CULTURE + GRAM [id number] 13:17:00 Test Item Value Reference Range Comments CULTURE (BEAKER) (test 4+ Normal respiratory paul rhbr=1608) present GRAM STAIN RESULT (BEAKER) 2+ WBCs (test bywx=3760) GRAM STAIN RESULT (BEAKER) 0-5 epithelial cells (test qbkk=25159) GRAM STAIN RESULT (BEAKER) 4+ gram negative rods (test igng=27797) GRAM STAIN RESULT (BEAKER) 4+ gram positive cocci in (test bgnl=697627) clusters GRAM STAIN RESULT (BEAKER) 1+ yeast with pseudohyphae (test ppfy=653660) CBC W/PLT COUNT & AUTO [id number] 12:07:00 Test Item Value Reference Range Comments WHITE BLOOD CELL COUNT (BEAKER) (test srrm=540) 16.8 K/ L 3.5-10.5 RED BLOOD CELL COUNT (BEAKER) (test ycmf=047) 4.39 M/ L 3.93-5.22 HEMOGLOBIN (BEAKER) (test ermm=491) 12.0 GM/DL 11.2-15.7 HEMATOCRIT (BEAKER) (test lrjd=241) 39.3 % 34.1-44.9 MEAN CORPUSCULAR VOLUME (BEAKER) (test jizc=212) 89.5 fL 79.4-94.8 MEAN CORPUSCULAR HEMOGLOBIN (BEAKER) (test 27.3 pg 25.6-32.2 cyie=689) MEAN CORPUSCULAR HEMOGLOBIN CONC (BEAKER) (test 30.5 GM/DL 32.2-35.5 yefd=888) RED CELL DISTRIBUTION WIDTH (BEAKER) (test 15.3 % 11.7-14.4 yant=457) PLATELET COUNT (BEAKER) (test asol=898) 312 K/CU MM 150-450 MEAN PLATELET VOLUME (BEAKER) (test fwje=868) 10.9 fL 9.4-12.3 NUCLEATED RED BLOOD CELLS (BEAKER) (test 0 /100 WBC 0-0 kfaw=812) NEUTROPHILS RELATIVE PERCENT (BEAKER) (test 89 % jawf=943) LYMPHOCYTES RELATIVE PERCENT (BEAKER) (test 3 % ibgi=286) MONOCYTES RELATIVE PERCENT (BEAKER) (test 7 % tqxu=685) EOSINOPHILS RELATIVE PERCENT (BEAKER) (test 0 % eyyd=556) BASOPHILS RELATIVE PERCENT (BEAKER) (test 0 % srjk=079) NEUTROPHILS ABSOLUTE COUNT (BEAKER) (test 15.01 K/ L 1.56-6.13 qmhi=120) LYMPHOCYTES ABSOLUTE COUNT (BEAKER) (test 0.56 K/ L 1.18-3.74 kiaf=152) MONOCYTES ABSOLUTE COUNT (BEAKER) (test 1.11 K/ L 0.24-0.36 trih=834) EOSINOPHILS ABSOLUTE COUNT (BEAKER) (test 0.00 K/ L 0.04-0.36 eugf=528) BASOPHILS ABSOLUTE COUNT (BEAKER) (test 0.02 K/ L 0.01-0.08 djfk=479) IMMATURE GRANULOCYTES-RELATIVE PERCENT (BEAKER) 1 % 0-1 (test aunz=5254) POCT-GLUCOSE [id number] 11:54:00 Test Item Value Reference Range Comments POC-GLUCOSE METER (BEAKER) 179 mg/dL 70-110 TESTED AT [address] (test iweq=9963) [place] [address] BASIC METABOLIC [id number] 04:52:00 Test Item Value Reference Range Comments SODIUM (BEAKER) (test 137 meq/L 136-145 qfum=932) POTASSIUM (BEAKER) (test 3.8 meq/L 3.5-5.1 ebtw=728) CHLORIDE (BEAKER) (test 93 meq/L 98-107 wzol=033) CO2 (BEAKER) (test 36 meq/L 22-29 xnwq=872) BLOOD UREA NITROGEN 17 mg/dL 7-21 (BEAKER) (test pwfe=032) CREATININE (BEAKER) (test 0.54 mg/dL 0.57-1.25 lxpf=621) GLUCOSE RANDOM (BEAKER) 103 mg/dL 70-105 (test qorr=033) CALCIUM (BEAKER) (test 8.5 mg/dL 8.4-10.2 wxaa=195) EGFR (BEAKER) (test 115 mL/min/1.73 sq m ESTIMATED GFR IS NOT btmg=8628) ACCURATE CREATININE CLEARANCE IN PREDICTING GLOMERULAR FILTRATION RATE. ESTIMATED GFR IS NOT APPLICABLE FOR DIALYSIS PATIENTS. POCT-GLUCOSE [id number] 21:10:00 Test Item Value Reference Range Comments POC-GLUCOSE METER (BEAKER) 289 mg/dL 70-110 TESTED AT [address] (test osxb=2783) [place] [address] CBC W/PLT COUNT & AUTO [id number] 15:29:00 Test Item Value Reference Range Comments WHITE BLOOD CELL COUNT (BEAKER) (test hbut=017) 20.2 K/ L 3.5-10.5 RED BLOOD CELL COUNT (BEAKER) (test hcfj=442) 4.70 M/ L 3.93-5.22 HEMOGLOBIN (BEAKER) (test yqvl=075) 12.6 GM/DL 11.2-15.7 HEMATOCRIT (BEAKER) (test hoew=623) 43.3 % 34.1-44.9 MEAN CORPUSCULAR VOLUME (BEAKER) (test olnj=994) 92.1 fL 79.4-94.8 MEAN CORPUSCULAR HEMOGLOBIN (BEAKER) (test 26.8 pg 25.6-32.2 buvv=356) MEAN CORPUSCULAR HEMOGLOBIN CONC (BEAKER) (test 29.1 GM/DL 32.2-35.5 efca=303) RED CELL DISTRIBUTION WIDTH (BEAKER) (test 15.2 % 11.7-14.4 prtr=612) PLATELET COUNT (BEAKER) (test roco=243) 301 K/CU MM 150-450 MEAN PLATELET VOLUME (BEAKER) (test fgiv=529) 11.0 fL 9.4-12.3 NUCLEATED RED BLOOD CELLS (BEAKER) (test 0 /100 WBC 0-0 cmuv=842) NEUTROPHILS RELATIVE PERCENT (BEAKER) (test 95 % qibc=843) LYMPHOCYTES RELATIVE PERCENT (BEAKER) (test 2 % dzne=227) MONOCYTES RELATIVE PERCENT (BEAKER) (test 2 % ehcs=631) EOSINOPHILS RELATIVE PERCENT (BEAKER) (test 0 % htaj=606) BASOPHILS RELATIVE PERCENT (BEAKER) (test 0 % vrqj=649) NEUTROPHILS ABSOLUTE COUNT (BEAKER) (test 19.18 K/ L 1.56-6.13 xupq=129) LYMPHOCYTES ABSOLUTE COUNT (BEAKER) (test 0.40 K/ L 1.18-3.74 ugwj=700) MONOCYTES ABSOLUTE COUNT (BEAKER) (test 0.37 K/ L 0.24-0.36 rjiq=589) EOSINOPHILS ABSOLUTE COUNT (BEAKER) (test 0.00 K/ L 0.04-0.36 mixz=219) BASOPHILS ABSOLUTE COUNT (BEAKER) (test 0.04 K/ L 0.01-0.08 idpx=611) IMMATURE GRANULOCYTES-RELATIVE PERCENT (BEAKER) 1 % 0-1 (test eqnm=8803) POCT-GLUCOSE [id number] 13:19:00 Test Item Value Reference Range Comments POC-GLUCOSE METER (BEAKER) 198 mg/dL 70-110 TESTED AT [facility] [address] (test rodm=2332) [facility] [address] BODY FLUID CULTURE + GRAM [id number] 11:22:00 Test Item Value Reference Range Comments CULTURE (BEAKER) (test eyjh=5151) No growth GRAM STAIN RESULT (BEAKER) (test <1+ WBCs ebkl=8165) GRAM STAIN RESULT (BEAKER) (test No organisms seen hisv=86325) RAD, CHEST, 1 VIEW, NON [id number] 08:47:00Reason for exam:->sobShould this be performed at [...] MDReport Verified Date/Time: 02/11/2017 08:47:53 Reading Location: [address] Neuro Reading Room BASIC METABOLIC [id number] 07:36:00 Test Item Value Reference Range Comments SODIUM (BEAKER) (test 138 meq/L 136-145 gvin=738) POTASSIUM (BEAKER) (test 3.7 meq/L 3.5-5.1 wccb=545) CHLORIDE (BEAKER) (test 96 meq/L 98-107 ptyw=805) CO2 (BEAKER) (test 33 meq/L 22-29 nemk=151) BLOOD UREA NITROGEN 18 mg/dL 7-21 (BEAKER) (test cqur=804) CREATININE (BEAKER) (test 0.61 mg/dL 0.57-1.25 mesm=646) GLUCOSE RANDOM (BEAKER) 247 mg/dL 70-105 (test nymr=912) CALCIUM (BEAKER) (test 8.4 mg/dL 8.4-10.2 plxc=804) EGFR (BEAKER) (test 100 mL/min/1.73 sq m ESTIMATED GFR IS NOT xbui=0524) ACCURATE CREATININE CLEARANCE IN PREDICTING GLOMERULAR FILTRATION RATE. ESTIMATED GFR IS NOT APPLICABLE FOR DIALYSIS PATIENTS. POCT-GLUCOSE [id number] 22:00:00 Test Item Value Reference Range Comments POC-GLUCOSE METER (BEAKER) 366 mg/dL 70-110 Will Repeat Test/TESTED AT (test aezf=0667) [facility] [address] [facility] [address] (MANUAL DIFFERENTIAL)2017-02-10 19:58:00 Test Item Value Reference Range Comments NEUTROPHILS - REL (DIFF) (BEAKER) (test 89 % oyhm=6571) LYMPHOCYTES - REL (DIFF) (BEAKER) (test 2 % eoan=6731) MONOCYTES - REL (DIFF) (BEAKER) (test kuov=6124) 6 % BANDS - REL (DIFF) (BEAKER) (test hagk=1537) 3 % 0-10 NEUTROPHILS - ABS (DIFF) (BEAKER) (test 24.21 K/ L 1.80-8.00 dnmy=6600) LYMPHOCYTES - ABS (DIFF) (BEAKER) (test 0.54 K/ L 1.48-4.50 jgsi=0687) MONOCYTES - ABS (DIFF) (BEAKER) (test pfaf=0682) 1.63 K/ L 0.00-1.30 BANDS-ABS (DIFF) (BEAKER) (test vqul=3881) 0.8 K/ L 0.0-0.8 TOTAL COUNTED (BEAKER) (test xupu=7332) 100 BANDS + SEGMENTED NEUTROPHILS (BEAKER) (test 25.02 ophg=5186) WBC MORPHOLOGY (BEAKER) (test dbsd=178) Normal PLT MORPHOLOGY (BEAKER) (test pzir=083) Normal RBC MORPHOLOGY (BEAKER) (test kskr=862) Normal CBC W/PLT COUNT & AUTO [id number] 19:57:00 Test Item Value Reference Range Comments WHITE BLOOD CELL COUNT (BEAKER) (test gtyc=712) 27.2 K/ L 3.5-10.5 RED BLOOD CELL COUNT (BEAKER) (test twgd=683) 4.46 M/ L 3.93-5.22 HEMOGLOBIN (BEAKER) (test peaw=121) 12.1 GM/DL 11.2-15.7 HEMATOCRIT (BEAKER) (test mefl=435) 42.9 % 34.1-44.9 MEAN CORPUSCULAR VOLUME (BEAKER) (test jtjg=136) 96.2 fL 79.4-94.8 MEAN CORPUSCULAR HEMOGLOBIN (BEAKER) (test 27.1 pg 25.6-32.2 jjrh=163) MEAN CORPUSCULAR HEMOGLOBIN CONC (BEAKER) (test 28.2 GM/DL 32.2-35.5 mcgy=340) RED CELL DISTRIBUTION WIDTH (BEAKER) (test 15.6 % 11.7-14.4 guie=817) PLATELET COUNT (BEAKER) (test ljki=237) 318 K/CU MM 150-450 MEAN PLATELET VOLUME (BEAKER) (test bwlb=553) 11.0 fL 9.4-12.3 NUCLEATED RED BLOOD CELLS (BEAKER) (test 0 /100 WBC 0-0 fqpq=556) IMMATURE GRANULOCYTES-RELATIVE PERCENT (BEAKER) 1 % 0-1 (test ptxt=0459) POCT-GLUCOSE [id number] 17:32:00 Test Item Value Reference Range Comments POC-GLUCOSE METER (BEAKER) 213 mg/dL 70-110 TESTED AT [facility] [address] [facility] (test etmz=1442) [facility] [address] BLOOD GAS, [id number] 14:31:00 Test Item Value Reference Range Comments PH ARTERIAL (BEAKER) (test vdwc=794) 7.31 7.35-7.45 PCO2 ARTERIAL (BEAKER) (test sbqs=695) 70 mmHg 35-45 PO2 ARTERIAL (BEAKER) (test fgve=372) 50 mmHg 80-90 O2 SATURATION ARTERIAL (BEAKER) (test epse=589) 78.5 % 96.0-97.0 HCO3 ARTERIAL (BEAKER) (test iado=000) 34 mmol/L 21-29 BASE EXCESS ARTERIAL (BEAKER) (test psjg=758) 6.2 mmol/L -2.0-3.0 PATIENT TEMPERATURE (BEAKER) (test xuam=8262) 37.5 C FIO2 (BEAKER) (test zkpn=3685) 21.0 % BLOOD GAS, [id number] 12:37:00 Test Item Value Reference Range Comments PH ARTERIAL (BEAKER) (test rcsy=092) 7.27 7.35-7.45 PCO2 ARTERIAL (BEAKER) (test roog=865) 76 mmHg 35-45 PO2 ARTERIAL (BEAKER) (test fmht=370) 123 mmHg 80-90 O2 SATURATION ARTERIAL (BEAKER) (test lyfj=763) 97.7 % 96.0-97.0 HCO3 ARTERIAL (BEAKER) (test brkg=055) 34 mmol/L 21-29 BASE EXCESS ARTERIAL (BEAKER) (test fygf=060) 5.2 mmol/L -2.0-3.0 PATIENT TEMPERATURE (BEAKER) (test awrc=7607) 37.5 C FIO2 (BEAKER) (test glij=0058) 36.0 % LACTIC ACID, VENOUS, WHOLE [id number] 10:45:00 Test Item Value Reference Range Comments LACTATE BLOOD VENOUS (2) (BEAKER) (test 1.8 mmol/L 0.5-2.2 ltbh=7203) Effective 07/15/2015: Units/Reference Range ChangeNew: 0.5-2.2 mmol/L Previous: 5 -20 mg/dLBLOOD GAS, [id number] 10:40:00 Test Item Value Reference Range Comments PH ARTERIAL (BEAKER) (test mluy=805) 7.19 7.35-7.45 PCO2 ARTERIAL (BEAKER) (test fnkq=435) 93 mmHg 35-45 PO2 ARTERIAL (BEAKER) (test kfgj=872) 56 mmHg 80-90 O2 SATURATION ARTERIAL (BEAKER) (test baxn=517) 78.6 % 96.0-97.0 HCO3 ARTERIAL (BEAKER) (test tbqr=459) 34 mmol/L 21-29 BASE EXCESS ARTERIAL (BEAKER) (test orch=526) 3.8 mmol/L -2.0-3.0 PATIENT TEMPERATURE (BEAKER) (test pvim=3468) 37.5 C FIO2 (BEAKER) (test ugdi=2270) 21.0 % BLOOD [id number] 10:00:00 Test Item Value Reference Range Comments CULTURE (BEAKER) (test pziq=6530) No growth in 5 days POCT-GLUCOSE [id number] 08:06:00 Test Item Value Reference Range Comments POC-GLUCOSE METER (BEAKER) 297 mg/dL 70-110 TESTED AT [address] (test ajau=2044) [place] [id number] BASIC METABOLIC [id number] 05:28:00 Test Item Value Reference Range Comments SODIUM (BEAKER) (test 136 meq/L 136-145 ybvz=841) POTASSIUM (BEAKER) (test 4.4 meq/L 3.5-5.1 izev=843) CHLORIDE (BEAKER) (test 98 meq/L 98-107 ozwa=956) CO2 (BEAKER) (test 30 meq/L 22-29 oker=149) BLOOD UREA NITROGEN 23 mg/dL 7-21 (BEAKER) (test hzql=772) CREATININE (BEAKER) (test 0.82 mg/dL 0.57-1.25 qsmc=942) GLUCOSE RANDOM (BEAKER) 388 mg/dL 70-105 (test xhki=892) CALCIUM (BEAKER) (test 8.6 mg/dL 8.4-10.2 sllf=581) EGFR (BEAKER) (test 71 mL/min/1.73 sq m ESTIMATED GFR IS NOT rrtp=0936) ACCURATE CREATININE CLEARANCE IN PREDICTING GLOMERULAR FILTRATION RATE. ESTIMATED GFR IS NOT APPLICABLE FOR DIALYSIS PATIENTS. BLOOD [id number] 05:02:00 Test Item Value Reference Range Comments CULTURE (BEAKER) (test mgye=2726) No growth in 5 days POCT-GLUCOSE [id number] 21:15:00 Test Item Value Reference Range Comments POC-GLUCOSE METER (BEAKER) 174 mg/dL 70-110 TESTED AT [place] [id number] [facility] (test tqsr=0147) [place] [id number] POCT-GLUCOSE [id number] 18:38:00 Test Item Value Reference Range Comments POC-GLUCOSE METER (BEAKER) 202 mg/dL 70-110 TESTED AT [address] (test wlup=3138) [facility] [address] RAD, CHEST, 1 VIEW, NON [id number] 15:27:00Reason for exam:->CoughShould this be performed at [...] Valdovinos MDReport Verified Date/Time:02/09/2017 15:27:55 Reading Location: [facility] Radiology Reading Room POCT-GLUCOSE [id number] 12:21:00 Test Item Value Reference Range Comments POC-GLUCOSE METER (BEAKER) 185 mg/dL 70-110 TESTED AT [facility] [address] [facility] (test piou=5257) [facility] [address] POCT-GLUCOSE [id number] 07:52:00 Test Item Value Reference Range Comments POC-GLUCOSE METER (BEAKER) 176 mg/dL 70-110 TESTED AT [address] (test jogk=8413) [place] [id number] BASIC METABOLIC [id number] 05:59:00 Test Item Value Reference Range Comments SODIUM (BEAKER) (test 137 meq/L 136-145 rftn=065) POTASSIUM (BEAKER) (test 4.4 meq/L 3.5-5.1 wwgm=913) CHLORIDE (BEAKER) (test 93 meq/L 98-107 wodt=353) CO2 (BEAKER) (test 40 meq/L 22-29 ezfu=212) BLOOD UREA NITROGEN 16 mg/dL 7-21 (BEAKER) (test mjzi=334) CREATININE (BEAKER) (test 0.50 mg/dL 0.57-1.25 dblv=259) GLUCOSE RANDOM (BEAKER) 181 mg/dL 70-105 (test yijg=868) CALCIUM (BEAKER) (test 8.1 mg/dL 8.4-10.2 pjor=013) EGFR (BEAKER) (test 125 mL/min/1.73 sq m ESTIMATED GFR IS NOT pyqx=7737) ACCURATE CREATININE CLEARANCE IN PREDICTING GLOMERULAR FILTRATION RATE. ESTIMATED GFR IS NOT APPLICABLE FOR DIALYSIS PATIENTS. [id number] 05:04:00 Test Item Value Reference Range Comments MAGNESIUM (BEAKER) (test swdd=882) 2.1 mg/dL 1.6-2.6 CBC W/PLT COUNT & AUTO [id number] 04:50:00 Test Item Value Reference Range Comments WHITE BLOOD CELL COUNT (BEAKER) (test twix=534) 10.6 K/ L 3.5-10.5 RED BLOOD CELL COUNT (BEAKER) (test ecbd=640) 3.44 M/ L 3.93-5.22 HEMOGLOBIN (BEAKER) (test vvxc=569) 9.3 GM/DL 11.2-15.7 HEMATOCRIT (BEAKER) (test pukr=696) 31.9 % 34.1-44.9 MEAN CORPUSCULAR VOLUME (BEAKER) (test ybsj=387) 92.7 fL 79.4-94.8 MEAN CORPUSCULAR HEMOGLOBIN (BEAKER) (test 27.0 pg 25.6-32.2 hezf=063) MEAN CORPUSCULAR HEMOGLOBIN CONC (BEAKER) (test 29.2 GM/DL 32.2-35.5 ahcr=486) RED CELL DISTRIBUTION WIDTH (BEAKER) (test 15.4 % 11.7-14.4 jyyh=234) PLATELET COUNT (BEAKER) (test rdsp=353) 156 K/CU MM 150-450 MEAN PLATELET VOLUME (BEAKER) (test lczm=679) 12.0 fL 9.4-12.3 NUCLEATED RED BLOOD CELLS (BEAKER) (test 0 /100 WBC 0-0 huas=530) NEUTROPHILS RELATIVE PERCENT (BEAKER) (test 90 % hhdm=546) LYMPHOCYTES RELATIVE PERCENT (BEAKER) (test 5 % nyig=145) MONOCYTES RELATIVE PERCENT (BEAKER) (test 4 % bnrp=788) EOSINOPHILS RELATIVE PERCENT (BEAKER) (test 0 % jgtf=949) BASOPHILS RELATIVE PERCENT (BEAKER) (test 0 % lple=609) NEUTROPHILS ABSOLUTE COUNT (BEAKER) (test 9.52 K/ L 1.56-6.13 uqri=801) LYMPHOCYTES ABSOLUTE COUNT (BEAKER) (test 0.48 K/ L 1.18-3.74 svpk=566) MONOCYTES ABSOLUTE COUNT (BEAKER) (test 0.46 K/ L 0.24-0.36 qbxf=329) EOSINOPHILS ABSOLUTE COUNT (BEAKER) (test 0.00 K/ L 0.04-0.36 deww=902) BASOPHILS ABSOLUTE COUNT (BEAKER) (test 0.01 K/ L 0.01-0.08 mgie=301) IMMATURE GRANULOCYTES-RELATIVE PERCENT (BEAKER) 1 % 0-1 (test jbuk=5818) POCT-GLUCOSE [id number] 20:33:00 Test Item Value Reference Range Comments POC-GLUCOSE METER (BEAKER) 200 mg/dL 70-110 TESTED AT [address] (test zjya=5443) [place] [address] POCT-GLUCOSE [id number] 19:24:00 Test Item Value Reference Range Comments POC-GLUCOSE METER (BEAKER) 237 mg/dL 70-110 TESTED AT [address] (test iagf=2673) [place] [address] POCT-GLUCOSE [id number] 11:09:00 Test Item Value Reference Range Comments POC-GLUCOSE METER (BEAKER) 301 mg/dL 70-110 TESTED AT [address] (test aidr=1121) [place] [address] HEMOGLOBIN [id number] 10:56:00 Test Item Value Reference Range Comments HEMOGLOBIN A1C (BEAKER) (test kdgz=204) 5.8 % 4.3-6.1 POCT-GLUCOSE [id number] 07:55:00 Test Item Value Reference Range Comments POC-GLUCOSE METER (BEAKER) 216 mg/dL 70-110 TESTED AT [address] (test fvvj=7759) [place] [address] HEPATITIS C PCR, [id number] 05:55:00 Test Item Value Reference Range Comments HCV RESULT COMPONENT (BEAKER) HCV RNA not detected HCV RNA not detected (test pylx=2477) This test uses a Real-Time Polymerase Chain Reaction (RT-PCR) methodology and was performed using ANN Ampliprep/ANN TaqMan HCV test kit version 2.0 ( [employer]).Reportable range for this assay is 15 - 100,000, 000 IU per mL (1.18 - 8.00 Log IU/mL).This test uses a Real-Time Polymerase Chain Reaction (RT-PCR) methodology and was performed using ANN Ampliprep/ ANN TaqMan HCV test kit version 2.0 ([employer]) .Reportable range for this assay is 15 - 100,000,000 IU per mL (1.18 - 8.00 Log IU/mL).[id number] 05:50:00 Test Item Value Reference Range Comments MAGNESIUM (BEAKER) (test yfcy=210) 2.0 mg/dL 1.6-2.6 COMPREHENSIVE METABOLIC [id number] 05:50:00 Test Item Value Reference Range Comments TOTAL PROTEIN (BEAKER) 6.0 gm/dL 6.0-8.3 (test cbnd=310) ALBUMIN (BEAKER) (test 3.2 g/dL 3.5-5.0 ltgm=5113) ALKALINE PHOSPHATASE 97 U/L 40-150 (BEAKER) (test semp=908) BILIRUBIN TOTAL (BEAKER) 0.3 mg/dL 0.2-1.2 (test lkik=826) SODIUM (BEAKER) (test 139 meq/L 136-145 fxcu=736) POTASSIUM (BEAKER) (test 4.7 meq/L 3.5-5.1 byqp=578) CHLORIDE (BEAKER) (test 96 meq/L 98-107 reot=629) CO2 (BEAKER) (test 37 meq/L 22-29 gzpl=721) BLOOD UREA NITROGEN 12 mg/dL 7-21 (BEAKER) (test sgkj=315) CREATININE (BEAKER) (test 0.54 mg/dL 0.57-1.25 gprh=305) GLUCOSE RANDOM (BEAKER) 172 mg/dL 70-105 (test cwyz=832) CALCIUM (BEAKER) (test 8.7 mg/dL 8.4-10.2 clhn=011) AST (SGOT) (BEAKER) (test 33 U/L 5-34 hdes=197) ALT (SGPT) (BEAKER) (test 33 U/L 6-55 mqcf=677) EGFR (BEAKER) (test 115 mL/min/1.73 sq ESTIMATED GFR IS NOT pxph=8561) m ACCURATE CREATININE CLEARANCE IN PREDICTING GLOMERULAR FILTRATION RATE. ESTIMATED GFR IS NOT APPLICABLE FOR DIALYSIS PATIENTS. CBC W/PLT COUNT & AUTO [id number] 05:32:00 Test Item Value Reference Range Comments WHITE BLOOD CELL COUNT (BEAKER) (test flzr=408) 17.0 K/ L 3.5-10.5 RED BLOOD CELL COUNT (BEAKER) (test cbyu=569) 3.42 M/ L 3.93-5.22 HEMOGLOBIN (BEAKER) (test dwyp=505) 9.4 GM/DL 11.2-15.7 HEMATOCRIT (BEAKER) (test imfx=055) 32.0 % 34.1-44.9 MEAN CORPUSCULAR VOLUME (BEAKER) (test yavu=512) 93.6 fL 79.4-94.8 MEAN CORPUSCULAR HEMOGLOBIN (BEAKER) (test 27.5 pg 25.6-32.2 oxze=896) MEAN CORPUSCULAR HEMOGLOBIN CONC (BEAKER) (test 29.4 GM/DL 32.2-35.5 fmub=632) RED CELL DISTRIBUTION WIDTH (BEAKER) (test 15.6 % 11.7-14.4 obnq=177) PLATELET COUNT (BEAKER) (test zynt=211) 169 K/CU MM 150-450 MEAN PLATELET VOLUME (BEAKER) (test etig=251) 11.0 fL 9.4-12.3 NUCLEATED RED BLOOD CELLS (BEAKER) (test 0 /100 WBC 0-0 txlz=280) NEUTROPHILS RELATIVE PERCENT (BEAKER) (test 91 % jngx=825) LYMPHOCYTES RELATIVE PERCENT (BEAKER) (test 4 % gtqd=922) MONOCYTES RELATIVE PERCENT (BEAKER) (test 5 % curt=996) EOSINOPHILS RELATIVE PERCENT (BEAKER) (test 0 % zfxo=316) BASOPHILS RELATIVE PERCENT (BEAKER) (test 0 % weat=204) NEUTROPHILS ABSOLUTE COUNT (BEAKER) (test 15.41 K/ L 1.56-6.13 detq=608) LYMPHOCYTES ABSOLUTE COUNT (BEAKER) (test 0.60 K/ L 1.18-3.74 varg=736) MONOCYTES ABSOLUTE COUNT (BEAKER) (test 0.78 K/ L 0.24-0.36 yqdf=633) EOSINOPHILS ABSOLUTE COUNT (BEAKER) (test 0.00 K/ L 0.04-0.36 hyks=647) BASOPHILS ABSOLUTE COUNT (BEAKER) (test 0.01 K/ L 0.01-0.08 igos=468) IMMATURE GRANULOCYTES-RELATIVE PERCENT (BEAKER) 1 % 0-1 (test xhih=0498) POCT-GLUCOSE [id number] 22:20:00 Test Item Value Reference Range Comments POC-GLUCOSE METER (BEAKER) 323 mg/dL 70-110 Notified GUS PRATT/TESTED AT [facility] (test iueu=0414) [address] [facility] [address] BODY FLUID CELL COUNT WITH [id number] 21:00:00 Test Item Value Reference Range Comments APPEARANCE FLUID (BEAKER) (test znyg=326) Slightly Cloudy Clear COLOR FLUID (BEAKER) (test lctq=234) Yellow Colorless, Straw RBC FLUID (BEAKER) (test haes=968) 1000 /cu mm <=1 ADJUSTED WBC FLUID (BEAKER) (test 620 /cu mm <=5 aqgz=3719) LINING CELLS (BEAKER) (test xgng=3972) 74 /cu mm <=1 NEUTROPHILS FLUID (BEAKER) (test satw=2728) 21 % LYMPHS FLUID (BEAKER) (test szsu=050) 30 % MONO/MACROPHAGE FLUID (BEAKER) (test 49 % trkr=996) EOSINOPHILS FLUID (BEAKER) (test civt=990) 0 % BASO FLUID (BEAKER) (test bxpa=583) 0 % CONTAINER BODY FLUID (BEAKER) (test EDTA Tube ucgy=4058) POCT-GLUCOSE [id number] 20:51:00 Test Item Value Reference Range Comments POC-GLUCOSE METER (BEAKER) 343 mg/dL 70-110 Notified GUS PRATT/TESTED AT [facility] (test pnkd=7222) [address] [facility] [address] RAD, CHEST, 1 VIEW, NON [id number] 20:12:00Reason for exam:->right pleural effusion s/p thoracentesis [...] MDReport Verified Date/Time: 02/07/2017 20:12:46 Reading Location: [address] Reading Room LACTATE DEHYDROGENASE (LDH), BODY [id number] 19:12:00 Test Item Value Reference Range Comments LACTATE DEHYDROGENASE FLUID (BEAKER) < U/L Light's criteria identifies (test hnyv=656) effusions if one or more are pre Absence of reference range indicates that normals have not been defined.Assay performance has not been validated for this type of specimen.PROTEIN, BODY [id number] 19:12:00 Test Item Value Reference Range Comments PROTEIN FLUID (BEAKER) (test 1.8 g/dL Light's criteria identifies ueck=599) effusions if one or more are pre Absence of reference range indicates that normals have not been defined.Assay performance has not been validated for this type of specimen.POCT-GLUCOSE [id number] 18:28:00 Test Item Value Reference Range Comments POC-GLUCOSE METER (BEAKER) 272 mg/dL 70-110 TESTED AT [address] (test qeuk=8816) [facility] [address] U/S, [id number] 18:23:00Laterality?->RightReason for exam:-> Diagnostic and therapeutic thorcaentesisFINAL [...] was prepped and anesthetized and a 5 Belarusian needle/catheter was inserted into the right pleural space. Four 25 cc of yellowish fluid were removed. A chest x-ray was ordered. CONCLUSION: Ultrasound-guided thoracentesis Signed: Dell Pacheco [facility] Verified Date/Time: 02/07/2017 18:23:13 Reading Location : [facility] [id number] Ultrasound Reading Room URINE [id number] 15:17:00 Test Item Value Reference Range Comments CULTURE (BEAKER) (test >100,000 col/mL Susan glabrata rmsq=0796) LACTATE DEHYDROGENASE (LDH)2017-02-07 14:18:00 Test Item Value Reference Range Comments LACTATE DEHYDROGENASE (BEAKER) (test rlkc=900) 296 U/L 125-220 [id number] 11:54:00 Test Item Value Reference Range Comments PROTIME (BEAKER) (test rbjs=855) 13.4 seconds 11.7-14.7 INR (BEAKER) (test ocqt=348) 1.0 <=5.9 PARTIAL THROMBOPLASTIN TIME (BEAKER) (test 25.9 seconds 22.5-36.0 ptai=916) RECOMMENDED COUMADIN/WARFARIN INR THERAPY RANGESSTANDARD DOSE: 2.0 - 3.0 Includes: PROPHYLAXIS forvenous thrombosis, systemic embolization; TREATMENT for venous thrombosis and/or pulmonary embolus.HIGH RISK: Target INR is 2.5-3.5 for patients with mechanical heart valves.[id number] 05:39:00 Test Item Value Reference Range Comments MAGNESIUM (BEAKER) (test jzde=500) 1.9 mg/dL 1.6-2.6 COMPREHENSIVE METABOLIC [id number] 05:39:00 Test Item Value Reference Range Comments TOTAL PROTEIN (BEAKER) 6.6 gm/dL 6.0-8.3 (test hwem=252) ALBUMIN (BEAKER) (test 3.5 g/dL 3.5-5.0 eavs=3585) ALKALINE PHOSPHATASE 111 U/L 40-150 (BEAKER) (test jxlv=083) BILIRUBIN TOTAL (BEAKER) < mg/dL 0.2-1.2 (test eflf=310) SODIUM (BEAKER) (test 137 meq/L 136-145 edns=686) POTASSIUM (BEAKER) (test 3.8 meq/L 3.5-5.1 njuv=011) CHLORIDE (BEAKER) (test 99 meq/L 98-107 ydzw=921) CO2 (BEAKER) (test 31 meq/L 22-29 dwfu=449) BLOOD UREA NITROGEN 11 mg/dL 7-21 (BEAKER) (test skmm=683) CREATININE (BEAKER) (test 0.61 mg/dL 0.57-1.25 qshc=677) GLUCOSE RANDOM (BEAKER) 221 mg/dL 70-105 (test fkbc=593) CALCIUM (BEAKER) (test 8.5 mg/dL 8.4-10.2 nicu=629) AST (SGOT) (BEAKER) (test 12 U/L 5-34 ndfb=890) ALT (SGPT) (BEAKER) (test 24 U/L 6-55 hpty=417) EGFR (BEAKER) (test 100 mL/min/1.73 sq ESTIMATED GFR IS NOT zvbe=2005) m ACCURATE CREATININE CLEARANCE IN PREDICTING GLOMERULAR FILTRATION RATE. ESTIMATED GFR IS NOT APPLICABLE FOR DIALYSIS PATIENTS. LIPID [id number] 05:39:00 Test Item Value Reference Range Comments TRIGLYCERIDES (BEAKER) (test ihes=504) 101 mg/dL CHOLESTEROL (BEAKER) (test lmlf=285) 134 mg/dL HDL CHOLESTEROL (BEAKER) (test mvml=264) 52 mg/dL LDL CHOLESTEROL CALCULATED (BEAKER) (test 62 mg/dL bokb=433) Triglyceride Reference Range: Low Risk <150 Borderline 150- 199 High Risk 200-499 Very High Risk >=500Cholesterol Reference Range: Low Risk <200 Borderline 200-239 High Risk > 240HDL Cholesterol Reference Range: Low Risk >=60 High Risk <40LDL Cholesterol Reference Range: Optimal <100 Near Optimal 100-129 Borderline 130-159 High 160-189 Very High >=190CBC W/PLT COUNT & AUTO [id number] 04:29:00 Test Item Value Reference Range Comments WHITE BLOOD CELL COUNT (BEAKER) (test xksb=942) 11.2 K/ L 3.5-10.5 RED BLOOD CELL COUNT (BEAKER) (test fsyt=127) 3.72 M/ L 3.93-5.22 HEMOGLOBIN (BEAKER) (test jjaz=191) 10.1 GM/DL 11.2-15.7 HEMATOCRIT (BEAKER) (test unyg=222) 33.8 % 34.1-44.9 MEAN CORPUSCULAR VOLUME (BEAKER) (test mrxf=804) 90.9 fL 79.4-94.8 MEAN CORPUSCULAR HEMOGLOBIN (BEAKER) (test 27.2 pg 25.6-32.2 ndgj=384) MEAN CORPUSCULAR HEMOGLOBIN CONC (BEAKER) (test 29.9 GM/DL 32.2-35.5 vivx=189) RED CELL DISTRIBUTION WIDTH (BEAKER) (test 15.7 % 11.7-14.4 tmem=682) PLATELET COUNT (BEAKER) (test etof=586) 238 K/CU MM 150-450 MEAN PLATELET VOLUME (BEAKER) (test pxkg=680) 11.1 fL 9.4-12.3 NUCLEATED RED BLOOD CELLS (BEAKER) (test 0 /100 WBC 0-0 lqql=020) NEUTROPHILS RELATIVE PERCENT (BEAKER) (test 87 % hcto=653) LYMPHOCYTES RELATIVE PERCENT (BEAKER) (test 6 % wrpj=150) MONOCYTES RELATIVE PERCENT (BEAKER) (test 5 % vamk=113) EOSINOPHILS RELATIVE PERCENT (BEAKER) (test 0 % pfqr=999) BASOPHILS RELATIVE PERCENT (BEAKER) (test 0 % nlfz=786) NEUTROPHILS ABSOLUTE COUNT (BEAKER) (test 9.80 K/ L 1.56-6.13 ryyy=885) LYMPHOCYTES ABSOLUTE COUNT (BEAKER) (test 0.72 K/ L 1.18-3.74 okwn=568) MONOCYTES ABSOLUTE COUNT (BEAKER) (test 0.57 K/ L 0.24-0.36 ansn=557) EOSINOPHILS ABSOLUTE COUNT (BEAKER) (test 0.00 K/ L 0.04-0.36 zrep=648) BASOPHILS ABSOLUTE COUNT (BEAKER) (test 0.00 K/ L 0.01-0.08 kkes=756) IMMATURE GRANULOCYTES-RELATIVE PERCENT (BEAKER) 1 % 0-1 (test ytdr=2993) CT, CHEST, WITHOUT [id number] 23:24:00FINAL REPORT INDICATION: 62-year-old female with hypoxia. [...] Verified Date/Time: 02/06/2017 23: 24:50 Reading Location: [facility] [id number] Consult Reading Room TSH/FREE T4 IF [id number] 19:48:00 Test Item Value Reference Range Comments THYROID STIMULATING HORMONE (BEAKER) (test 0.47 uIU/mL 0.35-4.94 sybl=895) RESPIRATORY PANEL [id number] 14:57:00 Test Item Value Reference Range Comments HUMAN METAPNEUMOVIRUS (BEAKER) (test Not detected Not detected, Inconclusive iror=8074) RHINOVIRUS (BEAKER) (test htca=6901) Not detected Not detected, Inconclusive INFLUENZA A (BEAKER) (test Not detected Not detected, Inconclusive gtga=8368) INFLUENZA A SUBTYPE H1 (BEAKER) Not detected Not detected, Inconclusive (test dpel=2417) INFLUENZA A SUBTYPE H3 (BEAKER) Not detected Not detected, Inconclusive (test okcz=5906) INFLUENZA A SUBTYPE H1-2009 (BEAKER) Not detected Not detected, Inconclusive (test ciif=2232) INFLUENZA B (BEAKER) (test Not detected Not detected, Inconclusive dihg=9658) RESPIRATORY SYNCYTIAL VIRUS (BEAKER) Not detected Not detected, Inconclusive (test sjwf=6784) PARAINFLUENZA VIRUS 1 (BEAKER) (test Not detected Not detected, Inconclusive mcla=1113) PARAINFLUENZA VIRUS 2 (BEAKER) (test Not detected Not detected, Inconclusive tueg=8019) PARAINFLUENZA VIRUS 3 (BEAKER) (test Not detected Not detected, Inconclusive mwyn=4975) PARAINFLUENZA VIRUS 4 (BEAKER) (test Not detected Not detected, Inconclusive rxnk=9092) ADENOVIRUS (BEAKER) (test aumf=3304) Not detected Not detected, Inconclusive CORONAVIRUS 229E (BEAKER) (test Not detected Not detected, Inconclusive xelp=4131) CORONAVIRUS HKU1 (BEAKER) (test Not detected Not detected, Inconclusive yhfy=8115) CORONAVIRUS NL63 (BEAKER) (test Not detected Not detected, Inconclusive ohsi=8072) CORONAVIRUS OC43 (BEAKER) (test Not detected Not detected, Inconclusive eubk=0513) BORDETELLA PERTUSSIS (BEAKER) (test Not detected Not detected, Inconclusive myvo=8071) CHLAMYDOPHILA PNEUMONIAE (BEAKER) Not detected Not detected, Inconclusive (test jdfe=7586) MYCOPLASMA PNEUMONIAE (BEAKER) (test Not detected Not detected, Inconclusive erjb=1860) TROPONIN [id number] 13:31:00 Test Item Value Reference Range Comments TROPONIN I (BEAKER) (test gryt=282) 0.08 ng/mL 0.00-0.03 Troponin I (TnI) levels [...] acute neurological disease, and persistent tachyarrhythmia.VANCOMYCIN LEVEL, [id number] 09:30 :00 Test Item Value Reference Range Comments VANCOMYCIN TROUGH (BEAKER) (test ybxq=247) 8.6 ug/mL 10.0-20.0 [id number] 07:03:00 Test Item Value Reference Range Comments MAGNESIUM (BEAKER) (test tysz=485) 1.7 mg/dL 1.6-2.6 COMPREHENSIVE METABOLIC [id number] 07:03:00 Test Item Value Reference Range Comments TOTAL PROTEIN (BEAKER) 5.6 gm/dL 6.0-8.3 (test dbhb=514) ALBUMIN (BEAKER) (test 3.0 g/dL 3.5-5.0 ovxb=0503) ALKALINE PHOSPHATASE 106 U/L 40-150 (BEAKER) (test purt=490) BILIRUBIN TOTAL (BEAKER) < mg/dL 0.2-1.2 (test exvx=841) SODIUM (BEAKER) (test 136 meq/L 136-145 ywvz=171) POTASSIUM (BEAKER) (test 3.8 meq/L 3.5-5.1 ujmg=967) CHLORIDE (BEAKER) (test 96 meq/L 98-107 dgsf=449) CO2 (BEAKER) (test 33 meq/L 22-29 dral=081) BLOOD UREA NITROGEN 13 mg/dL 7-21 (BEAKER) (test brnz=844) CREATININE (BEAKER) (test 0.56 mg/dL 0.57-1.25 uodx=613) GLUCOSE RANDOM (BEAKER) 250 mg/dL 70-105 (test swjw=076) CALCIUM (BEAKER) (test 8.3 mg/dL 8.4-10.2 ykio=942) AST (SGOT) (BEAKER) (test 12 U/L 5-34 uodx=692) ALT (SGPT) (BEAKER) (test 24 U/L 6-55 hqls=778) EGFR (BEAKER) (test 110 mL/min/1.73 sq ESTIMATED GFR IS NOT taac=1848) m ACCURATE CREATININE CLEARANCE IN PREDICTING GLOMERULAR FILTRATION RATE. ESTIMATED GFR IS NOT APPLICABLE FOR DIALYSIS PATIENTS. TROPONIN [id number] 07:00:00 Test Item Value Reference Range Comments TROPONIN I (BEAKER) (test okhe=000) 0.10 ng/mL 0.00-0.03 Troponin I (TnI) levels [...] acidosis, acute neurological disease, and persistent tachyarrhythmia.TROPONIN [id number] 07:00:00 Test Item Value Reference Range Comments TROPONIN I (BEAKER) (test hkti=118) 0.09 ng/mL 0.00-0.03 Troponin I (TnI) levels [...] and persistent tachyarrhythmia.CBC W/PLT COUNT & AUTO [id number] 06:20:00 Test Item Value Reference Range Comments WHITE BLOOD CELL COUNT (BEAKER) (test wacm=369) 10.2 K/ L 3.5-10.5 RED BLOOD CELL COUNT (BEAKER) (test bzvk=099) 3.35 M/ L 3.93-5.22 HEMOGLOBIN (BEAKER) (test lbqy=768) 9.2 GM/DL 11.2-15.7 HEMATOCRIT (BEAKER) (test njjo=306) 29.6 % 34.1-44.9 MEAN CORPUSCULAR VOLUME (BEAKER) (test ocka=454) 88.4 fL 79.4-94.8 MEAN CORPUSCULAR HEMOGLOBIN (BEAKER) (test 27.5 pg 25.6-32.2 snrc=138) MEAN CORPUSCULAR HEMOGLOBIN CONC (BEAKER) (test 31.1 GM/DL 32.2-35.5 qmyx=571) RED CELL DISTRIBUTION WIDTH (BEAKER) (test 16.1 % 11.7-14.4 pgaf=665) PLATELET COUNT (BEAKER) (test aakq=645) 185 K/CU MM 150-450 MEAN PLATELET VOLUME (BEAKER) (test myvd=178) 11.0 fL 9.4-12.3 NUCLEATED RED BLOOD CELLS (BEAKER) (test 0 /100 WBC 0-0 pkla=387) NEUTROPHILS RELATIVE PERCENT (BEAKER) (test 91 % tygb=689) LYMPHOCYTES RELATIVE PERCENT (BEAKER) (test 4 % mzmf=503) MONOCYTES RELATIVE PERCENT (BEAKER) (test 4 % scca=476) EOSINOPHILS RELATIVE PERCENT (BEAKER) (test 0 % pkqr=274) BASOPHILS RELATIVE PERCENT (BEAKER) (test 0 % pcgz=918) NEUTROPHILS ABSOLUTE COUNT (BEAKER) (test 9.34 K/ L 1.56-6.13 rrro=046) LYMPHOCYTES ABSOLUTE COUNT (BEAKER) (test 0.37 K/ L 1.18-3.74 jbvr=335) MONOCYTES ABSOLUTE COUNT (BEAKER) (test 0.45 K/ L 0.24-0.36 mepr=899) EOSINOPHILS ABSOLUTE COUNT (BEAKER) (test 0.00 K/ L 0.04-0.36 pftl=156) BASOPHILS ABSOLUTE COUNT (BEAKER) (test 0.01 K/ L 0.01-0.08 xdch=435) IMMATURE GRANULOCYTES-RELATIVE PERCENT (BEAKER) 1 % 0-1 (test bazn=1262) [id number] 13:17:00 Test Item Value Reference Range Comments PROCALCITONIN (BEAKER) (test ugpz=0386) 0.26 ng/mL <0.05 SEPSIS RISK (ng/mL)Low: 0.05-0.50Intermediate: 0.51-2.00High: & gt;=2.01POCT-GLUCOSE [id number] 11:40:00 Test Item Value Reference Range Comments POC-GLUCOSE METER (BEAKER) 162 mg/dL 70-110 TESTED AT [address] (test ysjx=7282) [place] [id number] POCT-GLUCOSE [id number] 07:20:00 Test Item Value Reference Range Comments POC-GLUCOSE METER (BEAKER) 97 mg/dL 70-110 TESTED AT [address] (test forw=1655) [facility] [id number] CBC W/PLT COUNT & AUTO [id number] 06:11:00 Test Item Value Reference Range Comments WHITE BLOOD CELL COUNT (BEAKER) (test oqcr=572) 7.2 K/ L 3.5-10.5 RED BLOOD CELL COUNT (BEAKER) (test nuix=605) 3.77 M/ L 3.93-5.22 HEMOGLOBIN (BEAKER) (test fsli=249) 10.1 GM/DL 11.2-15.7 HEMATOCRIT (BEAKER) (test ivyi=776) 32.9 % 34.1-44.9 MEAN CORPUSCULAR VOLUME (BEAKER) (test tcmc=418) 87.3 fL 79.4-94.8 MEAN CORPUSCULAR HEMOGLOBIN (BEAKER) (test 26.8 pg 25.6-32.2 kqbp=741) MEAN CORPUSCULAR HEMOGLOBIN CONC (BEAKER) (test 30.7 GM/DL 32.2-35.5 ryvf=534) RED CELL DISTRIBUTION WIDTH (BEAKER) (test 16.2 % 11.7-14.4 tguv=654) PLATELET COUNT (BEAKER) (test uxwr=391) 222 K/CU MM 150-450 MEAN PLATELET VOLUME (BEAKER) (test tlhd=650) 11.1 fL 9.4-12.3 NUCLEATED RED BLOOD CELLS (BEAKER) (test 0 /100 WBC 0-0 buqf=881) NEUTROPHILS RELATIVE PERCENT (BEAKER) (test 90 % mmsm=264) LYMPHOCYTES RELATIVE PERCENT (BEAKER) (test 7 % biuh=113) MONOCYTES RELATIVE PERCENT (BEAKER) (test 2 % ethd=113) EOSINOPHILS RELATIVE PERCENT (BEAKER) (test 0 % dyfu=239) BASOPHILS RELATIVE PERCENT (BEAKER) (test 0 % lyyg=713) NEUTROPHILS ABSOLUTE COUNT (BEAKER) (test 6.45 K/ L 1.56-6.13 xecu=162) LYMPHOCYTES ABSOLUTE COUNT (BEAKER) (test 0.53 K/ L 1.18-3.74 edka=394) MONOCYTES ABSOLUTE COUNT (BEAKER) (test 0.16 K/ L 0.24-0.36 giff=966) EOSINOPHILS ABSOLUTE COUNT (BEAKER) (test 0.00 K/ L 0.04-0.36 wbse=154) BASOPHILS ABSOLUTE COUNT (BEAKER) (test 0.01 K/ L 0.01-0.08 acji=388) IMMATURE GRANULOCYTES-RELATIVE PERCENT (BEAKER) 1 % 0-1 (test folz=3478) [id number] 05:50:00 Test Item Value Reference Range Comments MAGNESIUM (BEAKER) (test epdu=072) 1.4 mg/dL 1.6-2.6 COMPREHENSIVE METABOLIC [id number] 05:50:00 Test Item Value Reference Range Comments TOTAL PROTEIN (BEAKER) 5.8 gm/dL 6.0-8.3 (test jelf=936) ALBUMIN (BEAKER) (test 2.9 g/dL 3.5-5.0 wrsk=1709) ALKALINE PHOSPHATASE 130 U/L 40-150 (BEAKER) (test wxfu=488) BILIRUBIN TOTAL (BEAKER) 0.4 mg/dL 0.2-1.2 (test zfym=369) SODIUM (BEAKER) (test 138 meq/L 136-145 ytaj=416) POTASSIUM (BEAKER) (test 3.0 meq/L 3.5-5.1 adbq=299) CHLORIDE (BEAKER) (test 93 meq/L 98-107 thhu=049) CO2 (BEAKER) (test 32 meq/L 22-29 dfdk=885) BLOOD UREA NITROGEN 19 mg/dL 7-21 (BEAKER) (test gxil=260) CREATININE (BEAKER) (test 0.63 mg/dL 0.57-1.25 mseg=021) GLUCOSE RANDOM (BEAKER) 104 mg/dL 70-105 (test bhky=694) CALCIUM (BEAKER) (test 8.3 mg/dL 8.4-10.2 hheh=300) AST (SGOT) (BEAKER) (test 25 U/L 5-34 malz=769) ALT (SGPT) (BEAKER) (test 29 U/L 6-55 njxc=960) EGFR (BEAKER) (test 96 mL/min/1.73 sq m ESTIMATED GFR IS NOT mybn=2849) ACCURATE CREATININE CLEARANCE IN PREDICTING GLOMERULAR FILTRATION RATE. ESTIMATED GFR IS NOT APPLICABLE FOR DIALYSIS PATIENTS. BLOOD GAS, [id number] 05:06:00 Test Item Value Reference Range Comments PH ARTERIAL (BEAKER) (test ukis=716) 7.48 7.35-7.45 PCO2 ARTERIAL (BEAKER) (test youv=334) 49 mmHg 35-45 PO2 ARTERIAL (BEAKER) (test nibn=479) 77 mmHg 80-90 O2 SATURATION ARTERIAL (BEAKER) (test ulbi=707) 96.0 % 96.0-97.0 HCO3 ARTERIAL (BEAKER) (test zhlz=196) 36 mmol/L 21-29 BASE EXCESS ARTERIAL (BEAKER) (test zoow=021) 10.7 mmol/L -2.0-3.0 PATIENT TEMPERATURE (BEAKER) (test fksa=9457) 37.0 C FIO2 (BEAKER) (test wbra=3846) 24.0 % HEPATITIS C [id number] 01:28:00 Test Item Value Reference Range Comments HEPATITIS C ANTIBODY (BEAKER) (test smbt=442) Equivocal Nonreactive RAPID INFLUENZA A&B [id number] 22:53:00 Test Item Value Reference Range Comments RAPID INFLUENZA A AG (BEAKER) (test Negative Negative, Inconclusive qvdc=6141) RAPID INFLUENZA B AG (BEAKER) (test Negative Negative, Inconclusive mgdr=7017) URINALYSIS W/ [id number] 22:38:00 Test Item Value Reference Range Comments COLOR (BEAKER) (test shhg=014) Yellow CLARITY (BEAKER) (test rupi=498) Clear SPECIFIC GRAVITY UA (BEAKER) (test rhmf=067) 1.019 1.001-1.035 PH UA (BEAKER) (test adpn=542) 5.0 5.0-8.0 PROTEIN UA (BEAKER) (test ccqj=183) 10 mg/dL Negative GLUCOSE UA (BEAKER) (test xlab=532) Negative Negative KETONES UA (BEAKER) (test ikwn=761) 80 mg/dL Negative BILIRUBIN UA (BEAKER) (test bixd=798) Negative Negative BLOOD UA (BEAKER) (test rfyj=521) Negative Negative NITRITE UA (BEAKER) (test jhta=008) Negative Negative LEUKOCYTE ESTERASE UA (BEAKER) (test ahyi=547) Small Negative UROBILINOGEN UA (BEAKER) (test xiqy=999) 0.2 mg/dL 0.2-1.0 RBC UA (BEAKER) (test zgrt=902) 1 /HPF WBC UA (BEAKER) (test gses=458) 9 /HPF BACTERIA (BEAKER) (test bojl=211) Rare MUCUS (BEAKER) (test mbrg=2910) Rare SQUAMOUS EPITHELIAL (BEAKER) (test sjjf=250) 1 /HPF CASTS (BEAKER) (test ftay=2387) 2 /LPF CRYSTALS, URINE (BEAKER) (test vvbs=5746) Rare SOURCE(BEAKER) (test smty=7089) Urine, [place] HEPATITIS B CORE ANTIBODY, [id number] 22:36:00 Test Item Value Reference Range Comments HEPATITIS B CORE TOTAL ANTIBODY (BEAKER) (test Nonreactive Nonreactive dgny=088) HIV-1 ANTIGEN WITH HIV-1/2 [id number] 22:36:00 Test Item Value Reference Range Comments HIV-1 ANTIGEN WITH HIV 1\T\2 ANTIBODY (2) Nonreactive Nonreactive (BEAKER) (test okan=1134) PROTHROMBIN [id number] 22:34:00 Test Item Value Reference Range Comments PROTIME (BEAKER) (test cfsp=940) 14.3 seconds 11.7-14.7 INR (BEAKER) (test nmzd=447) 1.1 <=5.9 RECOMMENDED COUMADIN/WARFARIN INR THERAPY RANGESSTANDARD DOSE: 2.0 - 3.0 Includes: PROPHYLAXIS forvenous thrombosis, systemic embolization; TREATMENT for venous thrombosis and/or pulmonary embolus.HIGH RISK: Target INR is 2.5-3.5 for patients with mechanical heart valves.TROPONIN [id number] 22:24:00 Test Item Value Reference Range Comments TROPONIN I (BEAKER) (test lpwv=050) 0.19 ng/mL 0.00-0.03 Troponin I (TnI) levels [...] NATRIURETIC PEPTIDE (BEAKER) (test 364 pg/mL 0-100 xjnq=394) [id number] 22:14:00 Test Item Value Reference Range Comments PHOSPHORUS (BEAKER) (test hbxe=473) 3.4 mg/dL 2.3-4.7 [id number] 22:14:00 Test Item Value Reference Range Comments MAGNESIUM (BEAKER) (test poco=763) 1.7 mg/dL 1.6-2.6 COMPREHENSIVE METABOLIC [id number] 22:14:00 Test Item Value Reference Range Comments TOTAL PROTEIN (BEAKER) 5.5 gm/dL 6.0-8.3 (test ottm=149) ALBUMIN (BEAKER) (test 2.9 g/dL 3.5-5.0 sgju=2741) ALKALINE PHOSPHATASE 134 U/L 40-150 (BEAKER) (test rlin=695) BILIRUBIN TOTAL (BEAKER) 0.4 mg/dL 0.2-1.2 (test czin=682) SODIUM (BEAKER) (test 138 meq/L 136-145 uznc=520) POTASSIUM (BEAKER) (test 3.6 meq/L 3.5-5.1 hbhs=892) CHLORIDE (BEAKER) (test 97 meq/L 98-107 bwkd=488) CO2 (BEAKER) (test 31 meq/L 22-29 svhi=903) BLOOD UREA NITROGEN 20 mg/dL 7-21 (BEAKER) (test pplv=136) CREATININE (BEAKER) (test 0.58 mg/dL 0.57-1.25 gfyo=252) GLUCOSE RANDOM (BEAKER) 75 mg/dL 70-105 (test qgkn=771) CALCIUM (BEAKER) (test 8.3 mg/dL 8.4-10.2 hxda=457) AST (SGOT) (BEAKER) (test 31 U/L 5-34 hlpx=066) ALT (SGPT) (BEAKER) (test 30 U/L 6-55 bihr=883) EGFR (BEAKER) (test 106 mL/min/1.73 sq ESTIMATED GFR IS NOT mccc=2266) m ACCURATE CREATININE CLEARANCE IN PREDICTING GLOMERULAR FILTRATION RATE. ESTIMATED GFR IS NOT APPLICABLE FOR DIALYSIS PATIENTS. CBC W/PLT COUNT & AUTO [id number] 22:11:00 Test Item Value Reference Range Comments WHITE BLOOD CELL COUNT (BEAKER) (test dubh=559) 6.6 K/ L 3.5-10.5 RED BLOOD CELL COUNT (BEAKER) (test dfjm=061) 3.51 M/ L 3.93-5.22 HEMOGLOBIN (BEAKER) (test qgwp=688) 9.7 GM/DL 11.2-15.7 HEMATOCRIT (BEAKER) (test vebw=399) 31.6 % 34.1-44.9 MEAN CORPUSCULAR VOLUME (BEAKER) (test wweq=062) 90.0 fL 79.4-94.8 MEAN CORPUSCULAR HEMOGLOBIN (BEAKER) (test 27.6 pg 25.6-32.2 kpzv=680) MEAN CORPUSCULAR HEMOGLOBIN CONC (BEAKER) (test 30.7 GM/DL 32.2-35.5 nfal=225) RED CELL DISTRIBUTION WIDTH (BEAKER) (test 16.0 % 11.7-14.4 amyh=436) PLATELET COUNT (BEAKER) (test juvu=123) 197 K/CU MM 150-450 MEAN PLATELET VOLUME (BEAKER) (test pifz=455) 11.0 fL 9.4-12.3 NUCLEATED RED BLOOD CELLS (BEAKER) (test 0 /100 WBC 0-0 fnlv=001) NEUTROPHILS RELATIVE PERCENT (BEAKER) (test 92 % ondf=120) LYMPHOCYTES RELATIVE PERCENT (BEAKER) (test 6 % qfdq=085) MONOCYTES RELATIVE PERCENT (BEAKER) (test 1 % icdk=120) EOSINOPHILS RELATIVE PERCENT (BEAKER) (test 0 % ndqr=358) BASOPHILS RELATIVE PERCENT (BEAKER) (test 0 % ufkb=780) NEUTROPHILS ABSOLUTE COUNT (BEAKER) (test 6.08 K/ L 1.56-6.13 axuv=052) LYMPHOCYTES ABSOLUTE COUNT (BEAKER) (test 0.40 K/ L 1.18-3.74 achc=756) MONOCYTES ABSOLUTE COUNT (BEAKER) (test 0.08 K/ L 0.24-0.36 jwqv=114) EOSINOPHILS ABSOLUTE COUNT (BEAKER) (test 0.00 K/ L 0.04-0.36 lldq=526) BASOPHILS ABSOLUTE COUNT (BEAKER) (test 0.01 K/ L 0.01-0.08 lseu=787) IMMATURE GRANULOCYTES-RELATIVE PERCENT (BEAKER) 1 % 0-1 (test vkkf=3303) BLOOD GAS, [id number] 20:15:00 Test Item Value Reference Range Comments PH ARTERIAL (BEAKER) (test hgtq=671) 7.40 7.35-7.45 PCO2 ARTERIAL (BEAKER) (test mbsy=356) 58 mmHg 35-45 PO2 ARTERIAL (BEAKER) (test rsno=101) 89 mmHg 80-90 O2 SATURATION ARTERIAL (BEAKER) (test wxkc=285) 96.6 % 96.0-97.0 HCO3 ARTERIAL (BEAKER) (test albg=238) 35 mmol/L 21-29 BASE EXCESS ARTERIAL (BEAKER) (test jpgp=934) 8.7 mmol/L -2.0-3.0 PATIENT TEMPERATURE (BEAKER) (test gsad=3328) 37.0 C FIO2 (BEAKER) (test oorh=7406) 24.0 % RAD, CHEST, 1 VIEW, NON [id number] 19:30:00Post-intubationReason for exam:-& gt;transfer from OSH, intubated/respiratory [...] right rib fracture deformities. Signed: Jalen Simms [facility] Verified Date/Time: 02/04/2017 19: 30:53 Reading Location:[address] Reading Room
--- OUTSIDE RECORDS SUMMARY | 2018-10-28 14:34 | XMS REPORT ---
[...] Dosage System Date Date Methadone HCl ND 16805274008 10 MG Orally Active 1 tablet Once a day Protonix [facility] 69521949926 40 MG Active 1 EACH ONCE A DAY ORALLY Brovana ND 72562769494 15 MCG/2ML Active 2 ml Inhalation Twice a day ProAir RespiClick [facility] 80937555855 108 (90 Base) Active 2 puffs as MCG/ACT needed Inhalation every 6 hrs Metoprolol ND 24762703049 25 MG Orally Active 1 tablet Tartrate Twice a day with food Pantoprazole ND 60856883333 40 MG Orally March Active 1 tablet Sodium Once a day 2017 Albuterol-Ipratro ND 0 2.5-0.5 MG/3ML Active 3 ml pium Inhalation every 6 hrs Magnesium Oxide ND 99388044930 400 MG Orally Active 1 tablet Once a day as needed Prolia [facility] 37540375008 60 MG/ML Active not Subcutaneous defined MiraLax [facility] 96195165145 - Orally Once a Active 1 packet day mixed with 8 ounces of fluid Ergocalciferol [facility] 42730727341 04518 UNIT Active 1 capsule Orally Metformin HCl [facility] 33379791682 500 MG Orally Active 1 tablet Twice a day with meals Clonazepam [facility] 40849930335 1 MG Orally Active 1 tablet Once a day Creon [facility] 15015030631 72865-74984 Active not UNIT Orally defined Lasix [facility] 32480905981 20 MG Orally Active 1 tablet Once a day Results No Known Results Summary Purpose eClinicalWorks Submission
--- OUTSIDE RECORDS SUMMARY | 2018-10-28 14:34 | XMS REPORT ---
[...] End Status Dosage System Date Date Pantoprazole [facility] 50181870182 40 MG Orally May Active 1 tablet Sodium Once a day 2017 MiraLax [facility] 17157758909 - Orally Once Active 1 packet a day mixed with 8 ounces of fluid Clonazepam [facility] 26146031562 1 MG Orally Active 1 tablet Once a day Brovana [facility] 05226201547 15 MCG/2ML Active 2 ml Inhalation Twice a day Ergocalciferol [facility] 16396468046 21483 UNIT Active 1 capsule Orally Anoro Ellipta ND 39303580935 62.5mcg/25 mcg Apr 25, Active 1 puff Orally once a 2018 day in AM Triamcinolone [facility] 38768410057 0.5 % August Active 1 application Acetonide Externally 11, to affected Twice a day 2017 area Creon [facility] 46922674810 89059-27448 Active not defined UNIT Orally Metformin HCl [facility] 61688027703 500 MG Orally Active 1 tablet with Twice a day meals Protonix [facility] 02955007955 40 MG Active 1 EACH ONCE A DAY ORALLY Myrbetriq ND 65614969192 25 MG Orally Apr 25, Active 1 tablet Once a day 2018 Lasix [facility] 60959750220 20 MG Orally Active 1 tablet Once a day Methadone HCl [facility] 41345478904 10 MG Orally Active 1 tablet Once a day Protonix [facility] 71707083643 40 Active 1 EACH ONCE A DAY ORALLY Metoprolol [facility] 26101565894 25 MG Orally Active 1 tablet with Tartrate Twice a day food Albuterol-Ipratro [facility] 0 2.5-0.5 MG/3ML Active 3 ml pium Inhalation every 6 hrs Prolia [facility] 17434046736 60 MG/ML Active not defined Subcutaneous ProAir RespiClick [facility] 52215068344 108 (90 Base) Active 2 puffs as MCG/ACT needed Inhalation every 6 hrs Magnesium Oxide [facility] 54178407067 400 MG Orally Active 1 tablet as Once a day needed Results No Known Results Summary Purpose eClinicalWorks Submission
--- OUTSIDE RECORDS SUMMARY | 2018-10-28 14:35 | XMS REPORT ---
:1955 Author Organization eClinicalWorks Care Team Providers Name Role Phone Ahuja, Na Provider Role Unavailable Allergies, Adverse Reactions, Alerts Substance Reaction Event Type Keflex Info Not Available Drug Allergy Cyclobenzaprine HCl Info Not Available Drug Allergy Problems Problem Type Condition Code Onset Dates Condition Status Assessment Anemia, unspecified type D64.9 Active Assessment Nicotine dependence with current F17.200 Active use Assessment GERD (gastroesophageal reflux K21.9 Active disease) Assessment Prediabetes R73.03 Active Assessment Osteoporosis M81.0 Active Assessment COPD (chronic obstructive pulmonary J44.9 Active disease) Assessment Pale stool R19.5 Active Assessment Unspecified Escherichia coli [E. B96.20 Active coli] as the cause of diseases classified elsewhere Assessment Urinary tract infection, site not N39.0 Active specified Problem Back pain M54.9 Active Assessment Urinary incontinence in female R32 Active Problem Insomnia G47.00 Active Assessment Abdominal pain, right upper R10.11 Active quadrant Problem Osteoporosis M81.0 Active Problem COPD (chronic obstructive pulmonary J44.9 Active disease) Problem GERD (gastroesophageal reflux K21.9 Active disease) Problem Overactive bladder N32.81 Active Problem Nicotine dependence with current F17.200 Active use Assessment Medicare annual wellness visit, Z00.00 Active subsequent Problem Urinary incontinence in female R32 Active Assessment Rib pain on left side R07.81 Active Problem Nicotine dependence F17.200 Active Problem Degeneration of lumbosacral M51.37 Active intervertebral disc Problem Other chronic pain G89.29 Active Problem Rotator cuff tear arthropathy of M12.811 Active right shoulder Assessment Encounter for screening mammogram Z12.31 Active for breast cancer Problem Kyphosis M40.209 Active Assessment Encounter for screening for Z13.820 Active osteoporosis Problem Lower extremity edema R60.0 Active Problem Depression with anxiety F41.8 Active Assessment Screening for colon cancer Z12.11 Active Problem Iron deficiency anemia D50.9 Active Problem Constipation K59.00 Active Problem Lymphedema I89.0 Active Problem Chronic pancreatitis K86.1 Active Problem DJD (degenerative joint disease) M19.90 Active Medications Medication Code Code Instructions Start End Status Dosage System Date Date Protonix [facility] 46605080303 40 Active 1 EACH ONCE A DAY ORALLY Myrbetriq [facility] 40702794846 25 MG Orally Active 1 tablet Once a day Anoro Ellipta [facility] 54832520771 62.5mcg/25 mcg Active 1 puff Orally once a day in AM MiraLax [facility] 71227469563 - Orally Once Active 1 packet a day mixed with 8 ounces of fluid Ergocalciferol [facility] 43210666487 55954 UNIT Active 1 capsule Orally Ranitidine HCl [facility] 06802771587 150 MG Orally August Active 1 capsule Twice a day 2018 Metoprolol [facility] 75743462580 25 MG Orally Active 1 tablet with Tartrate Twice a day food Pantoprazole [facility] 62682123751 40 MG Orally May Active 1 tablet Sodium Once a day 2017 Creon [facility] 73256186949 76760-54316 Active not defined UNIT Orally Triamcinolone [facility] 45503034915 0.5 % August Active 1 application Acetonide Externally 11, to affected Twice a day 2017 area Lasix [facility] 72746322337 20 MG Orally Active 1 tablet Once a day Macrobid [facility] 14930436605 100 MG Orally August Active 1 capsule every 12 hrs 18, 25, with food 2018 2018 Protonix [facility] 97513115293 40 MG Active 1 EACH ONCE A DAY ORALLY Albuterol-Ipratro [facility] 0 2.5-0.5 MG/3ML Active 3 ml pium Inhalation every 6 hrs Brovana [facility] 68956140858 15 MCG/2ML Active 2 ml Inhalation Twice a day Clonazepam [facility] 76809740818 1 MG Orally Active 1 tablet Once a day Methadone HCl [facility] 37280079068 10 MG Orally Active 1 tablet Once a day Metformin HCl [facility] 92210855975 500 MG Orally Active 1 tablet with Twice a day meals Pantoprazole [facility] 45486289707 40 Active TAKE 1 TABLET Sodium BY MOUTH ONCE A DAY ProAir RespiClick [facility] 68686387738 108 (90 Base) Active 2 puffs as MCG/ACT needed Inhalation every 6 hrs Prolia [facility] 44643916227 60 MG/ML Active not defined Subcutaneous Magnesium Oxide [facility] 20128801771 400 MG Orally Active 1 tablet as Once a day needed Results No Known Results Summary Purpose eClinicalWorks Submission
--- OUTSIDE RECORDS SUMMARY | 2018-10-28 14:35 | XMS REPORT ---
[...] M19.90 Active Problem Insomnia G47.00 Active Medications Medication Code System Code Instructions Start End Date Status Dosage Date Macrobid [facility] 2001 09581420696 100 MG Orally August 28, September 04, Active 1 capsule every 12 hrs 2018 2018 with food Results No Known Results Summary Purpose eClinicalWorks Submission
[2018-10-28] MEDS ORDERED: ALBUTEROL 2.5 MG/3 ML NEB SOL ONE (15:16)
[2018-10-28] MEDS ORDERED: IPRATROPIUM BROM 0.5MG/2.5ML ONE (15:16)
[2018-10-28] MEDS ORDERED: RSI MEDICATION KIT IV ONE (15:41)
[2018-10-28] MEDS ORDERED: MIDAZOLAM HCL 2 MG/2 ML INJ ONE (15:41)
[2018-10-28] MEDS ORDERED: NALOXONE 0.4 MG/ML VIAL ONE (15:44)
[2018-10-28] MEDS ORDERED: NALOXONE HCL 2 MG/2 ML VIAL ONE (15:44)
[2018-10-28 15:49] LABS: Absolute Lymphocytes (CBC) 0.8 K/uL (0.7-4.9); Basophils % 0.4 % (0-1.3); Hematocrit 26.4 % (36.0-45.0); Lymphocytes % 5.2 % (15.3-44.8); MPV 9.7 fL (7.6-11.3); RBC Red Blood Cell Count 3.44 M/uL (3.86-4.86)
[2018-10-28 15:53] LABS: Protime INR 0.99
[2018-10-28 16:07] LABS: ALT/SGPT 29 U/L (12-78); AST/SGOT 45 U/L (15-37); Albumin 3.4 g/dL (3.4-5.0); Alkaline Phosphatase 183 U/L (45-117); BUN Blood Urea Nitrogen 12 mg/dL (7-18); Bicarbonate 30 mmol/L (21-32); Bilirubin Direct 0.3 mg/dL (0-0.2); Bilirubin Total 0.7 mg/dL (0.2-1.0); Glucose Level 70 mg/dL (74-106); Magnesium 2.3 mg/dL (1.8-2.4); NT PRO-BNP 703 pg/mL (<125); Potassium 3.7 mmol/L (3.5-5.1); Sodium Level 136 mmol/L (136-145); Troponin (Emerg Dept Use Only) < 0.02 ng/mL (0.0-0.045)
[2018-10-28 16:20] LABS: Arterial Blood Carboxyhemoglob 3.5 % (0-1.5); Blood O2 Saturation 99.3 % (92-98.5)
[2018-10-28] MEDS ORDERED: NA CHLORIDE 0.9% 500 ML ONE (17:21)
[2018-10-28 17:22] LABS: Anisocytosis 1+; Blood Morphology Comment NOTED (NOT SEEN); Platelet Estimate ADEQ; Urine White Blood Cell Casts OK
[2018-10-28] MEDS ORDERED: Levofloxacin500mg IV 500 MG/100 ML BAG IV ONE (17:58)
[2018-10-28] MEDS ORDERED: NA CHLORIDE 0.9% 1,000 ML ONE (17:58)
--- NOTE | 2018-10-28 18:00 | ER ---
Nurse's Notes [facility] Name: Alee Humphrey Age: 63 yrs Sex: Female : 1955 Arrival Date: 10/28/2018 Time: 14:35 Bed 2 Private MD: Diagnosis: Respiratory failure, unspecified with hypoxia;Cellulitis of left lower limb;Cellulitis of right lower limb Presentation: 10/28 14:37 Presenting complaint: EMS states: Worsening SOB x 2-3 days, daughter on scene reports hb pt lethargic and slow to respond today. SPO2 81% on RA, HR 80s, ETCO2 70, BGL 73. 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 Transition of care: patient was not received from another setting of care. Onset of symptoms was October 27, 2018. Risk Assessment: Do you want to hurt yourself or someone else? Patient reports no desire to harm self or others. Care prior to arrival: IV initiated. 20 GA, in the left forearm, Glucose check: 73 Oxygen administered. via nasal cannula. 14:37 Method Of Arrival: EMS: [facility] hb 14:37 Acuity: FARHAT 2 hb 14:40 Initial Sepsis Screen: Does the patient meet any 2 criteria? HR > 90 bpm. Does the hb patient have a suspected source of infection? No. Patient's initial sepsis screen is negative. Triage Assessment: 15:07 Respiratory: Reports. hb Historical: - Allergies: 14:41 Cephalexin Monohydrate; hb 14:41 cyclobenzaprine HCl (Vomiting); hb 14:41 Flexeril; hb 14:41 Keflex (Vomiting); hb - Home Meds: 14:41 baclofen 10 mg Oral tab 1 tab every 6 hrs PRN for pain [Active]; clonazepam 1 mg Oral hb tab at bedtime [Active]; Hydrochlorothiazide Oral [Active]; methadone 10 mg Oral tab 4 times a day PRN for pain [Active]; tiotropium bromide inhalation [Active]; - PMHx: 14:41 Anxiety; CHF; chronic back pain; COPD; Depression; hb - PSHx: 14:41 multiple back surgeries; abdomen; hb - Immunization history:: Adult Immunizations up to date. - Social history:: Smoking status: Patient/guardian denies using tobacco. - Ebola Screening: : No symptoms or risks identified at this time. Screenin:42 Abuse screen: Denies threats or abuse. Denies injuries from another. Nutritional hb screening: No deficits noted. Tuberculosis screening: No symptoms or risk factors identified. Fall Risk Total Drummond Fall Scale indicates High Risk Score (45 or more points). Fall prevention measures have been instituted. Side Rails Up X 2 Frequent Obs/Assessments Occuring As available patient and family educated on Fall Prevention Program and Strategies. Assessment: 14:45 General: Appears distressed, Behavior is cooperative, lethargic. Pain: Pain currently hb is 2 out of 10 on a pain scale. at worst was 6 out of 10 on a pain scale. Neuro: Level of Consciousness is obeys commands, lethargic, Oriented to person, place, situation. Cardiovascular: Heart tones S1 S2 present Capillary refill < 3 seconds Patient's skin is warm and dry. Rhythm is regular. Respiratory: Airway is patent Trachea midline Respiratory effort is labored, Respiratory pattern is tachypnea Breath sounds are coarse bilaterally. GI: No signs and/or symptoms were reported involving the gastrointestinal system. : No signs and/or symptoms were reported regarding the genitourinary system. EENT: No signs and/or symptoms were reported regarding the EENT system. Derm: bilateral lower leg, ankles, and feet red and hot to touch. Musculoskeletal: No signs and/or symptoms reported regarding the musculoskeletal system. Kyphosis noted. 15:34 Reassessment: BIPAP 14/7, R17, FiO2 40%. hb 15:45 Reassessment: Pt obtunded, Dr. Arevalo and POOJA Walsh notified. hb 15:48 Reassessment: Narcan adminstered as ordered, Dr. Arevalo and POOJA Walsh at bedside. hb 16:15 Reassessment: Pt lethargic, responds to verbal stimuli. BIPAP continues. hb 17:24 Reassessment: Patient appears in no apparent distress at this time. No changes from hb previously documented assessment. 17:25 Reassessment: Sister Tracy Lizarraga [phone]. hb 18:14 Reassessment: Patient appears in no apparent distress at this time. No changes from hb previously documented assessment. BIPAP continues, pt lethargic. Dr. Carmen Walsh aware. 18:55 Reassessment: Dr Guevara at the bedside. sv 19:15 General: Appears in no apparent distress. comfortable, Behavior is calm, cooperative, rr5 appropriate for age. Neuro: Level of Consciousness is awake, alert, obeys commands, Oriented to person, place, time, situation, Cardiovascular: Capillary refill < 3 seconds Patient's skin is warm and dry. Respiratory: Airway is patent Respiratory effort is even, unlabored, Respiratory pattern is regular, barrel chested. 19:15 GI: No signs and/or symptoms were reported involving the gastrointestinal system. : rr5 No signs and/or symptoms were reported regarding the genitourinary system. EENT: No signs and/or symptoms were reported regarding the EENT system. Derm: Skin is thin, with poor turgor Skin temperature is warm. Musculoskeletal: Kyphosis noted Swelling present in right leg and left leg. 19:15 Reassessment: AO x4 on BIPAP maintaining O2 sat AT 100%, vitally stable, with IV rr5 cannula G20 bilateral forearm. complaining of pain at IV site. with ny catheter to urine bag. for transfer to ICU bed 7. 20:20 Reassessment: transfer to ICU no complaints made, vitally stable, accompanied by RT rr5 staff. Vital Signs: 14:38 BP 121 / 81; Pulse 82; Resp 17; Temp 97.8; Pulse Ox 83% on R/A; Weight 37.19 kg; Height hb 4 ft. 11 in. (149.86 cm); Pain 2/10; 15:06 BP 120 / 78; Pulse 105; Resp 24; Pulse Ox 97% on 4 lpm NC; Pain 4/10; hb 15:45 BP 122 / 76; Pulse 100; Resp 19; Pulse Ox 98% on 40% BiPAP; hb 16:30 BP 139 / 88; Pulse 122; Resp 20; Pulse Ox 100% ; sv 17:00 BP 123 / 68; Pulse 107; Resp 20; Pulse Ox 100% on 40% BiPAP; hb 17:15 BP 101 / 63; Pulse 91; Resp 18; Pulse Ox 99% on 40% BiPAP; hb 18:13 BP 101 / 65; Pulse 83; Resp 17; Pulse Ox 100% on 40% BiPAP; hb 18:34 BP 118 / 76; Pulse 85; Resp 16; Pulse Ox 100% ; sv 19:07 BP 121 / 81; Pulse 91; Resp 16; Temp 97.8; Pulse Ox 100% on 40% BiPAP; ak1 20:15 BP 105 / 75; Pulse 92; Resp 19; Temp 97.9; Pulse Ox 100% on BiPAP; rr5 14:38 Body Mass Index 16.56 (37.19 kg, 149.86 cm) hb ED Course: 14:35 Patient arrived in ED. hb 14:40 Triage completed. hb 14:42 Arm band placed on right wrist. hb 14:42 EKG done, by ED staff, reviewed by Julio Cesar Arevalo MD. jb1 14:45 Patient has correct armband on for positive identification. Bed in low position. Call hb light in reach. Side rails up X2. kiln operator helper on. Pulse ox on. NIBP on. 15:00 Lan Walsh PA is PHCP. cp 15:00 Julio Cesar Arevalo MD is Attending Physician. cp 15:02 Caroline Schwarz, RN is Primary Nurse. hb 16:19 Basic Metabolic Panel Sent. sv 16:19 CBC with Diff Sent. sv 16:19 LFT's Sent. sv 16:29 XRAY Chest (1 view) In Process Unspecified. EDMS 16:49 Ny cath inserted, using sterile technique, 16 Fr., by ED staff, balloon inflated, to sv gravity drainage, returned none. 17:57 Yovani Guevara MD is Hospitalizing Provider. cp 18:39 Add On-Lab Sent. sv 19:10 Inserted saline lock: 20 gauge in right in left forearm, using aseptic technique. rr5 ,using aseptic technique. received from AM shift. 19:15 IV discontinued, patient complaining of pain bilateral IV cannula. rr5 19:20 Inserted saline lock: 20 gauge in right forearm, using aseptic technique. rr5 19:35 No provider procedures requiring assistance completed. Patient admitted, IV remains in rr5 place. intact, No redness/swelling at site. Administered Medications: 15:30 Drug: Albuterol - atroVENT (3:1) (2.5 mg - 0.5 mg) 3 ml Route: Nebulizer; sv 16:30 Follow up: Response: No adverse reaction hb 15:46 Drug: NARcan 0.2 mg Route: IVP; Site: right forearm; sv 16:15 Follow up: Response: No adverse reaction hb 17:23 Drug: NS 0.9% 500 ml Route: IV; Rate: bolus; Site: right forearm; hb 18:02 Follow up: Response: No adverse reaction; IV Status: Completed infusion; IV Intake: hb 500ml 18:01 Drug: LevaQUIN 500 mg Volume: 100 ml; Route: IVPB; Infused Over: 60 mins; Site: right hb forearm; 19:00 Follow up: Response: No adverse reaction; IV Status: Completed infusion; IV Intake: rr5 100ml 18:07 Drug: NS 0.9% 500 ml Route: IV; Rate: bolus; Site: right forearm; sv 18:52 Follow up: Response: No adverse reaction; IV Status: Completed infusion; IV Intake: hb 500ml 18:30 Drug: vancoMYCIN 1 grams Route: IVPB; Infused Over: 2 hrs; Site: right forearm; hb 19:36 Follow up: Response: No adverse reaction; IV Status: Infusion continued upon admission; rr5 IV Intake: 50ml 18:52 Drug: NS 0.9% 1000 ml Route: IV; Rate: 75 ml/hr; Site: right forearm; hb 19:36 Follow up: Response: No adverse reaction; IV Status: Infusion continued upon admission; rr5 IV Intake: 75ml Intake: 18:02 IV: 500ml; Total: 500ml. hb 18:52 IV: 500ml; Total: 1000ml. hb 19:00 IV: 100ml; Total: 1100ml. rr5 19:36 IV: 75ml; Total: 1175ml. rr5 19:36 IV: 50ml; Total: 1225ml. rr5 Outcome: 17:59 Decision to Hospitalize by Provider. cp 19:35 Admitted to ICU accompanied by nurse, via stretcher, room ICU 7, with oxygen, on rr5 monitor, with chart, Report called to sergio 19:35 Condition: stable 19:35 Instructed on the need for admit. 20:30 Patient left the ED. rr5 Signatures: Dispatcher [employer] EDMS Ruy Hernandez Stephanie, RN RN Monalisa Cordova RN RN ak1 Lan Walsh PA PA Caroline Cali RN RN hb Roque, Raymond RN RN rr5 Corrections: (The following items were deleted from the chart) 15:03 14:37 Presenting complaint: EMS states: Worsening SOB x 2-3 days, daughter on scene hb reports pt lethargic and slow to respond today. SPO2 81% on RA, HR 80s, ETCO2 70, BGL 73 hb 17:27 14:38 BP 121 / 81; Pulse 82bpm; Resp 17bpm; Pulse Ox 83% RA; Temp 97.8F; 39.92 kg; hb Height 4 ft. 11 in.; BMI: 17.7; Pain 2/10; hb 18:14 17:00 BP 123 / 68; Pulse 107bpm; Resp 20bpm; Pulse Ox 100% BiPAP; sv hb 18:14 17:15 BP 101 / 63; Pulse 91bpm; Resp 18bpm; Pulse Ox 99% BiPAP; sv hb 18:22 16:49 Ny cath inserted, using sterile technique, 16 Fr., by ED staff, balloon sv inflated, to gravity drainage, sv
--- NOTE | 2018-10-28 18:01 | EDPHYS ---
Physician Documentation [facility] Name: Alee Humphrey Age: 63 yrs Sex: Female : 1955 Arrival Date: 10/28/2018 Time: 14:35 Bed 2 Private MD: ED Physician Julio Cesar Arevalo HPI: 10/28 15:10 This 63 yrs old Female presents to ER via EMS with complaints of Shortness Of cp Breath, Lethargy. 15:10 The patient has shortness of breath at rest. Onset: The symptoms/episode began/occurred cp today. Duration: The symptoms are continuous, and are steadily getting worse. Associated signs and symptoms: Pertinent negatives: productive cough, diaphoresis, fever, hemoptysis. Severity of symptoms: in the emergency department the symptoms have improved mildly. The patient has experienced similar episodes in the past, chronically. Historical: - Allergies: 14:41 Cephalexin Monohydrate; hb 14:41 cyclobenzaprine HCl (Vomiting); hb 14:41 Flexeril; hb 14:41 Keflex (Vomiting); hb - Home Meds: 14:41 baclofen 10 mg Oral tab 1 tab every 6 hrs PRN for pain [Active]; clonazepam 1 mg Oral hb tab at bedtime [Active]; Hydrochlorothiazide Oral [Active]; methadone 10 mg Oral tab 4 times a day PRN for pain [Active]; tiotropium bromide inhalation [Active]; - PMHx: 14:41 Anxiety; CHF; chronic back pain; COPD; Depression; hb - PSHx: 14:41 multiple back surgeries; abdomen; hb - Immunization history:: Adult Immunizations up to date. - Social history:: Smoking status: Patient/guardian denies using tobacco. - Ebola Screening: : No symptoms or risks identified at this time. ROS: 15:15 Constitutional: Negative for body aches, chills, fever, poor PO intake. cp 15:15 Eyes: Negative for injury, pain, redness, and discharge. cp 15:15 ENT: Negative for drainage from ear(s), ear pain, sore throat, difficulty swallowing, difficulty handling secretions. 15:15 Cardiovascular: Negative for chest pain, edema, palpitations. 15:15 Respiratory: Positive for shortness of breath, at rest. Negative for wheezing. 15:15 Abdomen/GI: Negative for abdominal pain, nausea, vomiting, and diarrhea. 15:15 MS/extremity: Positive for pain, of the right lower leg and left lower leg. 15:15 Neuro: Positive for altered mental status. 15:15 All other systems are negative. Exam: 15:20 Constitutional: The patient appears in no acute distress, alert, awake, cp non-diaphoretic, non-toxic, well developed, well nourished. 15:20 Head/Face: Normocephalic, atraumatic. cp 15:20 Eyes: Periorbital structures: appear normal, Pupils: pinpoint, bilaterally, Extraocular movements: intact throughout, Conjunctiva: normal, no exudate, no injection, Sclera: no appreciated abnormality, Lids and lashes: appear normal, bilaterally. 15:20 ENT: External ear(s): are unremarkable, Ear canal(s): are normal, clear, TM's: dullness, bilaterally, Nose: is normal, Mouth: Lips: dry, Oral mucosa: pink and intact, moist, Posterior pharynx: is normal, airway is patent, no erythema, no exudate. 15:20 Neck: ROM/movement: is normal, is supple, without pain, no range of motions limitations, no meningismus, no nuchal rigidity. 15:20 Chest/axilla: Inspection: normal, Palpation: is normal, no crepitus, no tenderness. 15:20 Cardiovascular: Rate: tachycardic, Rhythm: regular, Heart sounds: rub, not appreciated, gallop, not appreciated, Edema: is not appreciated, JVD: is not appreciated. 15:20 Respiratory: mild respiratory distress is noted, Respirations: labored breathing, that is mild, intercostal retractions, are absent, shallow respirations, that is mild, Breath sounds: decreased breath sounds, that are moderate, throughout. 15:20 Abdomen/GI: Inspection: abdomen appears normal, Palpation: abdomen is soft and non-tender, in all quadrants. 15:20 Back: kyphosis, that is marked. 15:20 Skin: cellulitis, that is moderate, irregular, on the left lower leg and right lower cp leg. 15:20 Neuro: Orientation: to person, place, Mentation: somnolent, Cerebellar function: is cp grossly normal, Motor: moves all fours, strength is normal, Sensation: no obvious gross deficits. Vital Signs: 14:38 BP 121 / 81; Pulse 82; Resp 17; Temp 97.8; Pulse Ox 83% on R/A; Weight 37.19 kg; Height hb 4 ft. 11 in. (149.86 cm); Pain 2/10; 15:06 BP 120 / 78; Pulse 105; Resp 24; Pulse Ox 97% on 4 lpm NC; Pain 4/10; hb 15:45 BP 122 / 76; Pulse 100; Resp 19; Pulse Ox 98% on 40% BiPAP; hb 16:30 BP 139 / 88; Pulse 122; Resp 20; Pulse Ox 100% ; sv 17:00 BP 123 / 68; Pulse 107; Resp 20; Pulse Ox 100% on 40% BiPAP; hb 17:15 BP 101 / 63; Pulse 91; Resp 18; Pulse Ox 99% on 40% BiPAP; hb 18:13 BP 101 / 65; Pulse 83; Resp 17; Pulse Ox 100% on 40% BiPAP; hb 18:34 BP 118 / 76; Pulse 85; Resp 16; Pulse Ox 100% ; sv 19:07 BP 121 / 81; Pulse 91; Resp 16; Temp 97.8; Pulse Ox 100% on 40% BiPAP; ak1 20:15 BP 105 / 75; Pulse 92; Resp 19; Temp 97.9; Pulse Ox 100% on BiPAP; rr5 14:38 Body Mass Index 16.56 (37.19 kg, 149.86 cm) hb MDM: 15:05 Patient medically screened. cp 18:00 Data reviewed: vital signs, nurses notes, lab test result(s), radiologic studies, plain cp films, I have discussed the patient's presentation/case with the attending Emergency Department Physician;. 18:00 Physician consultation: Yovani Guevara MD was called at 17:55, was contacted at 17:55, cp regarding admission, to the ICU, patient's condition, and will see patient in ED, shortly. 10/28 15:06 Order name: Basic Metabolic Panel cp 10/28 15:06 Order name: CBC with Diff cp 10/28 15:06 Order name: LFT's cp 10/28 15:06 Order name: Magnesium; Complete Time: 19:05 cp 10/28 15:06 Order name: NT PRO-BNP; Complete Time: 19:05 cp 08/18 17:20 Interpretation: Abnormal: NT PRO-BNP 703. cp /18 15:06 Order name: PT-INR; Complete Time: 17:20 cp 10/28 15:06 Order name: Troponin (emerg Dept Use Only); Complete Time: 19:05 cp 10/28 15:06 Order name: Procalcitonin; Complete Time: 17:20 cp 10/28 15:06 Order name: Lactate; Complete Time: 17:20 cp 10/28 15:06 Order name: Blood Culture Adult (2) cp 10/28 15:07 Order name: Basic Metabolic Panel; Complete Time: 19:05 EDMS 18 17:22 Interpretation: Normal except: GLUC 70; CRE 0.50; CA 8.2. / 15:07 Order name: CBC with Automated Diff; Complete Time: 17:46 EDMS 10/28 17:21 Interpretation: Reviewed. 10/28 15:07 Order name: Liver (Hepatic) Function; Complete Time: 19:05 EDMS 10/28 17:21 Interpretation: Normal except: AST 45; ALK 183; BILID 0.3; GLOB 3.6; A/G 0.9. cp 10/28 15:38 Order name: UDS 10/28 15:06 Order name: XRAY Chest (1 view); Complete Time: 19:05 10/28 19:06 Interpretation: Report review. 10/28 15:06 Order name: EKG; Complete Time: 15:08 cp 10/28 15:38 Order name: ABG; Complete Time: 17:20 10/28 16:13 Order name: CBC Smear Scan; Complete Time: 17:46 EDMS 18 17:49 Order name: Type And Screen 10/28 18:08 Order name: Vancomycin Level Trough EDMS 10/28 18:20 Order name: Add On-Lab 10/28 18:21 Order name: Ferritin; Complete Time: 19:05 EDMS 10/28 15:06 Order name: Cardiac monitoring; Complete Time: 15:25 cp 10/28 15:06 Order name: EKG - Nurse/Tech; Complete Time: 15:25 cp 10/28 15:06 Order name: IV Saline Lock; Complete Time: 16:02 cp 10/28 15:06 Order name: Labs collected and sent; Complete Time: 16:02 10/28 15:06 Order name: O2 Per Protocol; Complete Time: 15:25 cp 10/28 15:06 Order name: O2 Sat Monitoring; Complete Time: 15:25 cp 10/28 18:11 Order name: Solorio; Complete Time: 18:12 hb 0818 18:14 Order name: Respiratory Therapy Consult EDMS Administered Medications: 15:30 Drug: Albuterol - atroVENT (3:1) (2.5 mg - 0.5 mg) 3 ml Route: Nebulizer; sv 16:30 Follow up: Response: No adverse reaction hb 15:46 Drug: NARcan 0.2 mg Route: IVP; Site: right forearm; sv 16:15 Follow up: Response: No adverse reaction hb 17:23 Drug: NS 0.9% 500 ml Route: IV; Rate: bolus; Site: right forearm; hb 18:02 Follow up: Response: No adverse reaction; IV Status: Completed infusion; IV Intake: hb 500ml 18:01 Drug: LevaQUIN 500 mg Volume: 100 ml; Route: IVPB; Infused Over: 60 mins; Site: right hb forearm; 19:00 Follow up: Response: No adverse reaction; IV Status: Completed infusion; IV Intake: rr5 100ml 18:07 Drug: NS 0.9% 500 ml Route: IV; Rate: bolus; Site: right forearm; sv 18:52 Follow up: Response: No adverse reaction; IV Status: Completed infusion; IV Intake: hb 500ml 18:30 Drug: vancoMYCIN 1 grams Route: IVPB; Infused Over: 2 hrs; Site: right forearm; hb 19:36 Follow up: Response: No adverse reaction; IV Status: Infusion continued upon admission; rr5 IV Intake: 50ml 18:52 Drug: NS 0.9% 1000 ml Route: IV; Rate: 75 ml/hr; Site: right forearm; hb 19:36 Follow up: Response: No adverse reaction; IV Status: Infusion continued upon admission; rr5 IV Intake: 75ml Disposition: 20:30 Critical Care:. cp Disposition: 10/28/18 17:59 Hospitalization ordered by Yovani Guevara for Inpatient Admission. Preliminary diagnosis are Respiratory failure, unspecified with hypoxia, Cellulitis of left lower limb, Cellulitis of right lower limb. - Bed requested for Intensive Care Unit. - Status is Inpatient Admission. rr5 - Condition is Stable. - Problem is an acute exacerbation. - Symptoms have improved. UTI on Admission? No Critical care time excluding procedures: 20:30 Critical care time: Bedside Care: 10 minutes, Consultation: 20 minutes, Family cp Intervention: 5 minutes. Total time: 35 minutes Addendum: 10/30/2018 15:36 Co-signature as Attending Physician, Julio Cesar Arevalo MD. g s Signatures: Dispatcher [employer] [facility] Crystal Andrews RN RN sv Woody, Diana, RN RN dw Page, Corey, PA PA Caroline Cali RN RN hb Starr, Gregory, MD MD Sarthak Sauer RN RN rr5 Corrections: (The following items were deleted from the chart) 10/28 17:22 17:20 Normal except: GLUC 70; CRE 0.50. cp cp 18:21 18:15 Ferritin ordered. [facility] 18:24 17:59 Hospitalization Ordered by Yovani Guevara MD for Inpatient Admission. Preliminary diagnosis is Respiratory failure, unspecified with hypoxia; Cellulitis of left lower limb; Cellulitis of right lower limb. Bed requested for Intensive Care Unit. Status is Inpatient Admission. Condition is Stable. Problem is an acute exacerbation. Symptoms have improved. UTI on Admission? No. cp 18:34 18:24 10/28/2018 17:59 Hospitalization Ordered by Yovani Guevara MD for Inpatient dw Admission. Preliminary diagnosis is Respiratory failure, unspecified with hypoxia; Cellulitis of left lower limb; Cellulitis of right lower limb. Bed requested for Intensive Care Unit. Status is Inpatient Admission. Condition is Stable. Problem is an acute exacerbation. Symptoms have improved. UTI on Admission? No. dw 20:30 18:34 10/28/2018 17:59 Hospitalization Ordered by Yovani Guevara MD for Inpatient rr5 Admission. Preliminary diagnosis is Respiratory failure, unspecified with hypoxia; Cellulitis of left lower limb; Cellulitis of right lower limb. Bed requested for Intensive Care Unit. Status is Inpatient Admission. Condition is Stable. Problem is an acute exacerbation. Symptoms have improved. UTI on Admission? No. dw
[2018-10-28] MEDS ORDERED: ALBUTEROL 2.5 MG/3 ML NEB SOL NEB PRN (18:06)
[2018-10-28 18:37] LABS: Ferritin 9.9 ng/mL (8-388)
--- NOTE | 2018-10-28 18:49 | RAD REPORT ---
EXAM DESCRIPTION: Coleen Single View10/28/2018 4:28 pm CLINICAL HISTORY: sob COMPARISON: September 2018 FINDINGS: The lungs appear clear of acute infiltrate. The heart is normal size IMPRESSION: No acute abnormalities displayed
[2018-10-28] MEDS ORDERED: METHYLPREDNISOLONE 40 MG INJ IV SCH (19:00)
[2018-10-28] MEDS ORDERED: D5 0.45 NS 1,000 ML IV SCH (19:00)
[2018-10-28] MEDS ORDERED: VANCOMYCIN 750 MG in NA CHLORIDE 0.9% 150 ML IVPB SCH (19:00)
[2018-10-28] MEDS: IPRATROPIUM BROM 0.5MG/2.5ML NEB SCH (20:00)
--- NOTE | 2018-10-28 20:30 | P.HP ---
Certification for Inpatient With expected LOS: <2 Midnights Patient will require the following post-hospital care: None Practitioner: I am a practitioner with admitting privileges, knowledge of patient current condition, hospital course, and medical plan of care. Services: Services provided to patient in accordance with Admission requirements found in Title 42 Section 412.3 of the Code of Federal Regulations Patient History Date of Service: 10/28/18 Reason for admission: Altered mental status History of Present Illness: Pt has a hx of COPA. Non compliant with NIV and nebs. C/o left shoulder pain today. Pt foud unresponisve by sisterMildred Avelar. No fever or chills. No Hx of GI bleeding Pt zenon Methadone. Loss of short term memory. On benzo's Allergies cephalexin monohydrate [From Keflex] Allergy (Intermediate, Verified 03/31/17 01 :22) Hives/Rash cyclobenzaprine HCl [From Flexeril] Allergy (Intermediate, Verified 03/31/17 01: 22) Hives/Rash Home Medications: ALPRAZolam [Xanax*] 1 mg PO TID PRN 03/31/17 Arformoterol Tartrate [Brovana] 15 mcg IH BID 03/31/17 Baclofen [Lioresal*] 10 mg PO Q6H PRN 03/31/17 Ipratropium Neb [Atrovent*] 0.5 mg IH Q6H 03/31/17 Methadone HCl [Methadone HCl*] 10 mg PO QID 03/31/17 clonazePAM [Klonopin*] 1 mg PO BEDTIME 03/31/17 Ensure Enlive 237 ml PO BID can 04/01/17 Ferrous Sulfate [Ferrous Sulfate*] 325 mg PO DAILY #30 tab 04/01/17 Smz./Tmp. [Bactrim Ds 800 MG/160 MG] 1 tab PO BID #4 tab 04/01/17 - Past Medical/Surgical History Diabetic: No -: COPD -: History of pancreatitis, pancreatic tumor removed-benign -: Chronic back pain -: Severe scoliosis -: Tobacco abuse -: GERD -: Depression with anxiety -: Insomnia -: Hysterectomy, 1982 -: Whipple surgery to remove pancreatic mass,2008 -: Subsequent GI surgery to remove more benign tumors, 2009 -: Numerous Back surgeries -: Bilateral Hip surgery repairs. 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 - Social History Alcohol use: No CD- Drugs: No Caffeine use: Yes Review of Systems General: Weakness Respiratory: Shortness of Breath Musculoskeletal: Back Pain Physical Examination - Physical Exam General: Alert, Oriented x3, Other (on BIPAP) Neck: Supple Respiratory: Clear to auscultation bilaterally, Diminished Cardiovascular: No edema, Regular rate/rhythm Gastrointestinal: Normal bowel sounds, Soft and benign Musculoskeletal: Kyphosis (Discolraton of LE) - Studies Laboratory Data (last 24 hrs) 10/28/18 15:20: PT 11.7, INR 0.99 10/28/18 15:20: WBC 15.0 H, Hgb 7.7 L*, Hct 26.4 L, Plt Count 212 10/28/18 15:20: Sodium 136, Potassium 3.7, BUN 12, Creatinine 0.50 L, Glucose 70 L, Magnesium 2.3, Total Bilirubin 0.7, AST 45 H, ALT 29, Alkaline Phosphatase 183 H Assessment and Plan - Problems (Diagnosis) (1) Acute and chronic respiratory failure ([id number]) Current Visit: No Status: Acute Plan: AW AMS. Non comliant. Excessive of Benzo's ? On Methadone. PT needs to weaned off Benzo's taking xanax and clonazepam and methadone. CXry cear. Noncomplaint with NIV ventialtor and neulizers Doubt sepsis. PCT neg. Qualifiers: Respiratory failure complication: unspecified whether with hypoxia or hypercapnia Qualified Code(s): J96.20 - Acute and chronic respiratory failure , unspecified whether with hypoxia or hypercapnia (2) Anemia Current Visit: Yes Status: Acute Plan: Iron def anemia. [place] to see GI. Transfus eiron Sec to chronic GI bleed Qualifiers: Anemia type: iron deficiency - Advance Directives Does patient have a Living Will: No Does patient have a Durable POA for Healthcare: No
[2018-10-28] MEDS: ENOXAPARIN 40 MG/0.4 ML SQ SCH (21:55)
[2018-10-28] MEDS: CEFTRIAXONE/SWI 1gm 1 GM/10 ML SYR IVP SCH (21:57)
[2018-10-28] MEDS: FAMOTIDINE 20 MG/2 ML VIAL IV SCH (21:57)
[2018-10-29 00:18] VITALS: O2SAT 98; BMI 13.4
[2018-10-29 01:42] LABS: Urine Appearance CLOUDY; Urine Bilirubin NEGATIVE (NEG); Urine Blood NEGATIVE (NEG); Urine Color YELLOW; Urine Glucose NEGATIVE (NEG); Urine Microscopic Reflex ORDER UMIC; Urine Protein NEGATIVE (NEG); Urine Urobilinogen 0.2 mg/dL (0.2-1.0)
[2018-10-29 01:51] LABS: Urine Bacteria >50 /HPF (<20); Urine Culture Reflex Order REFLEXED; Urine RBC <5 /HPF (NONE SEEN)
[2018-10-29 02:16] LABS: Barbiturates NEGATIVE (NEGATIVE); Benzodiazepines NEGATIVE (NEGATIVE); Cocaine NEGATIVE (NEGATIVE); METHAMPHETAM NEGATIVE (NEGATIVE); Methadone POSITIVE (NEGATIVE); Opiates NEGATIVE (NEGATIVE); Phencyclidine NEGATIVE (NEGATIVE); THC Cannibis POSITIVE (NEGATIVE)
[2018-10-29] MEDS: METHYLPREDNISOLONE 40 MG INJ IV SCH ×2 (03:26→09:30)
[2018-10-29] MEDS: IPRATROPIUM BROM 0.5MG/2.5ML NEB SCH ×4 (04:00→11:44)
[2018-10-29 05:48] LABS: Absolute Lymphocytes (CBC) 0.6 K/uL (0.7-4.9); Basophils % 0.1 % (0-1.3); Hematocrit 27.9 % (36.0-45.0); Lymphocytes % 6.2 % (15.3-44.8); MPV 10.3 fL (7.6-11.3); RBC Red Blood Cell Count 3.65 M/uL (3.86-4.86)
[2018-10-29 06:29] LABS: BUN Blood Urea Nitrogen 9 mg/dL (7-18); Bicarbonate 31 mmol/L (21-32); Ferritin 10.9 ng/mL (8-388); Glucose Level 157 mg/dL (74-106); HDL Cholesterol 45 mg/dL (40-60); LDL Cholesterol, Calculated 36 (<130); Magnesium 2.2 mg/dL (1.8-2.4); Potassium 4.3 mmol/L (3.5-5.1); Sodium Level 138 mmol/L (136-145); Thyroid Stimulating Hormone 0.607 uIU/mL (0.360-3.740); Transferrin 273 mg/dL (200-360)
[2018-10-29 06:41] LABS: Arterial Blood Carboxyhemoglob 1.5 % (0-1.5); Blood Gas Oxyhemoglobin 93.7 % (94-97)
--- NOTE | 2018-10-29 07:20 | RAD REPORT ---
EXAM DESCRIPTION: RAD - Chest Single View - 10/29/2018 7:04 am CLINICAL HISTORY: Shortness of breath, COPD exacerbation COMPARISON: October 28 TECHNIQUE: AP portable chest image was obtained 0658 hours . FINDINGS: Lung volumes are low. No focal mass or consolidations seen. Interstitial markings are prom inent. Pattern is not substantially different from the prior study. A mild diffuse interstitial edema or infiltrate can be masked by the shallow inspiration and chronic lung disease. Mediastinum is subs tantially distorted by a significant rotation. Heart and vasculature are normal. No measurable pleura l effusion and no pneumothorax. No acute bony abnormality seen. No acute aortic findings suspected. IMPRESSION: Limited shallow inspiration portable examination shows no focal mass or consolidation. Diffusely prominent interstitial markings from COPD could mask diffuse interstitial edema or infiltra te. This pattern is not substantially different from the prior day study.
--- NOTE | 2018-10-29 07:53 | EKG ---
Test Date: 2018-10-28 Test Time: 14:38:02 Mud Analysis Supervisor: BENITA MEASUREMENT RESULTS: Intervals: Rate: 86 NH: 124 QRSD: 92 QT: 372 QTc: 445 [place]: P: 68 NH: 124 QRS: 71 T: 264 INTERPRETIVE STATEMENTS: Sinus rhythm with premature atrial complexes Incomplete right bundle branch block Moderate voltage criteria for LVH, may be normal variant T wave abnormality, consider inferolateral ischemia Abnormal ECG Compared to ECG 03/30/2017 21:05:05 Incomplete right bundle-branch block now present Possible ischemia still present Electronically Signed On 10-29-18 07:52:58 CDT by Cisco Harrison
[2018-10-29] MEDS ORDERED: ARFORMOTEROL TARTRATE 15 MCG/2 ML VIAL.NEB NEB SCH (08:00)
[2018-10-29] MEDS: CEFTRIAXONE/SWI 1gm 1 GM/10 ML SYR IVP SCH (09:00)
[2018-10-29] MEDS ORDERED: SOD FERRIC GLUC COMPLX/SUCROSE 125 MG in NA CHLORIDE 0.9% 100 ML IV SCH (09:00)
[2018-10-29] MEDS: FAMOTIDINE 20 MG/2 ML VIAL IV SCH (09:30)
[2018-10-29] MEDS: ENOXAPARIN 40 MG/0.4 ML SQ SCH (09:30)
[2018-10-29] MEDS ORDERED: BACLOFEN 10 MG TAB PO SCH (11:00)
[2018-10-29] MEDS ORDERED: METHADONE HCL 10 MG TAB PO SCH (11:00)
--- NOTE | 2018-10-29 12:55 | P.DS ---
Admission Date: 10/28/18 Discharge Date: 10/29/18 Primary Care Provider: Dr. Low; Pulmonary-Dr. Guevara; Chronic pain-Dr. Amador([place]) Disposition: MD HOME/HOME HEALTH CARE Discharge Condition: GOOD Reason for Admission: Altered mental status Consultations: Pulmonary-Dr. Guevara Procedures: CXR: FINDINGS: Lung volumes are low. No focal mass or consolidations seen. Interstitial markings are prominent. Pattern is not substantially different from the prior study. A mild diffuse interstitial edema or infiltrate can be masked by the shallow inspiration and chronic lung disease. Mediastinum is substantially distorted by a significant rotation. Heart and vasculature are normal. No measurable pleural effusion and no pneumothorax. No acute bony abnormality seen. No acute aortic findings suspected. IMPRESSION: Limited shallow inspiration portable examination shows no focal mass or consolidation. Diffusely prominent interstitial markings from COPD could mask diffuse interstitial edema or infiltrate. This pattern is not substantially different from the prior day study. Medical problem list: Altered mental status secondary to encephalopathy related to overmedication with acute on chronic respiratory failure with hypoxia complicated with COPD on chronic oxygen Anemia of chronic disease with iron deficiency UTI Chronic pain Anxiety Chronic wound to the right lower extremity Moderate malnutrition BMI 14.8 Brief History of Present Illness: 63-year-old female with major medical problems of COPD, anxiety and chronic pain. Patient presented to the ER after she was found by her sister with altered mental status. Patient was seen in the ER and required BiPAP. Patient found to have acute on chronic respiratory failure likely from over medication as she takes multiple medications for chronic pain and anxiety. Patient was admitted for further treatment. Hospital Course: Patient presented with altered mental status secondary to encephalopathy related to overmedication. Patient with history of chronic pain and anxiety. She takes multiple medications including baclofen, Klonopin and methadone. She is seen by chronic pain management. Patient had acute on chronic respiratory failure with hypoxia complicated with COPD on chronic oxygen. Patient has home oxygen and noninvasive ventilator. Patient non compliant with noninvasive ventilator. Patient was transition off BiPAP to nasal cannula. Patient back to baseline. Patient seen and evaluated by pulmonology. Pulmonology recommends discharge. At discharge she is without any significant chest pain or shortness of breath. Patient understands that she needs to limit her pain medication. It is recommended that she keep a pill box to make sure she is getting the appropriate amount of medication. Patient understands the risk of overmedication. She also understands the importance of using noninvasive ventilator. At discharge patient will continue with home oxygen to maintain sats above 90%. She will continue to use noninvasive ventilator at night and as needed. Patient will continue with COPD medication Brovana 1 unit dose twice daily, albuterol 1 unit dose 4 times a day as needed for shortness of breath and Atrovent 1 unit dose 4 times a day as needed for shortness of breath. Recommend to follow up with pulmonology in 1 week to follow up this hospitalization. Will help arrange for home health at discharge to help educate and make sure she is compliant with medication regimen and oxygen/ noninvasive ventilator. Patient with anemia of chronic disease with iron deficiency. At discharge patient will continue with iron 325 mg 1 pill twice daily. Recommend recheck lab-CBC in 2-4 weeks to monitor progress. Patient with chronic pain. Patient sees pain management in [facility]. Patient will continue with methadone 10 mg 4 times a day and baclofen 10 mg 4 times a day. Patient is to keep medications in a pillbox to make sure she is not over medicating herself. Recommend follow up with pain management this week to further address and monitor. Home health to help with this. Patient with anxiety. Patient will continue with Klonopin 1 mg at bedtime. Will recommend to wean off medication as this may increase sedation. Patient with moderate malnutrition, BMI 14.8. Patient will continue with Ensure 1 can twice daily. Patient found to have UTI. Previous cultures reviewed. Pro calcitonin negative. At discharge she will continue with doxycycline 100 mg twice daily for 7 days. UTI prevention education provided. Patient has chronic right lower extremity wound. Patient recently on Bactroban. Will discontinue Bactrim since the patient will start doxycycline. Patient will continue with current wound care. Vital Signs/Physical Exam: Temp Pulse Resp BP Pulse Ox 97.7 F 96 H 23 H 91/66 99 10/29/18 12:00 10/29/18 12:00 10/29/18 12:00 10/29/18 12:00 10/29/18 12:00 General: Alert, In no apparent distress, Oriented x3, Cooperative HEENT: Atraumatic Neck: Supple Respiratory: Clear to auscultation bilaterally, Normal air movement Cardiovascular: Normal pulses, Regular rate/rhythm Gastrointestinal: Normal bowel sounds, Soft and benign, Non-distended, No tenderness, No masses, No rebound, No guarding Musculoskeletal: No warmth, Other (Patient has chronic wound to the right lower extremity. Venous stasis noted.) Integumentary: No warmth, No cyanosis Neurological: Normal speech, Normal strength at 5/5 x4 extr, Normal tone, Normal affect, Other (Muscle wasting throughout. Patient appears malnourished) Laboratory Data at Discharge: WBC 9.7 K/uL (4.3-10.9) D 10/29/18 05:13 Hgb 8.4 g/dL (12.0-15.0) L 10/29/18 05:13 Hct 27.9 % (36.0-45.0) L 10/29/18 05:13 Plt Count 165 K/uL (152-406) D 10/29/18 05:13 PT 11.7 SECONDS (9.5-12.5) 10/28/18 15:20 INR 0.99 10/28/18 15:20 Sodium 138 mmol/L (136-145) 10/29/18 05:13 Potassium 4.3 mmol/L (3.5-5.1) 10/29/18 05:13 BUN 9 mg/dL (7-18) 10/29/18 05:13 Creatinine 0.44 mg/dL (0.55-1.3) L 10/29/18 05:13 Glucose 157 mg/dL (74-106) H 10/29/18 05:13 Magnesium 2.2 mg/dL (1.8-2.4) 10/29/18 05:13 Total Bilirubin 0.7 mg/dL (0.2-1.0) 10/28/18 15:20 AST 45 U/L (15-37) H 10/28/18 15:20 ALT 29 U/L (12-78) 10/28/18 15:20 Alkaline Phosphatase 183 U/L (45-117) H 10/28/18 15:20 Triglycerides 26 mg/dL (<150) 10/29/18 05:13 Cholesterol 86 mg/dL (<200) 10/29/18 05:13 HDL Cholesterol 45 mg/dL (40-60) 10/29/18 05:13 Cholesterol/HDL Ratio 1.91 10/29/18 05:13 Home Medications: Arformoterol Tartrate [Brovana] 15 mcg IH BID 03/31/17 Baclofen [Lioresal*] 10 mg PO Q6H PRN 03/31/17 Ipratropium Neb [Atrovent*] 0.5 mg IH Q6H 03/31/17 Methadone HCl [Methadone HCl*] 10 mg PO QID 03/31/17 clonazePAM [Klonopin*] 1 mg PO BEDTIME 03/31/17 Ensure Enlive 237 ml PO BID can 04/01/17 Doxycycline Hyclate 100 mg PO BID #14 tablet 10/29/18 Ferrous Sulfate [Iron] 325 mg PO BID #60 tablet 10/29/18 New Medications: Doxycycline Hyclate 100 mg PO BID #14 tablet Ferrous Sulfate [Iron] 325 mg PO BID #60 tablet Patient Discharge Instructions: 1. Recommend a follow up with PCP within 1 week. 2. Patient presented with altered mental status secondary to encephalopathy related to overmedication. Patient with history of chronic pain and anxiety. She takes multiple medications including baclofen, Klonopin and methadone. She is seen by chronic pain management. Patient had acute on chronic respiratory failure with hypoxia complicated with COPD on chronic oxygen. Patient has home oxygen and noninvasive ventilator. Patient non compliant with noninvasive ventilator. Patient was transition off BiPAP to nasal cannula. Patient back to baseline. Patient seen and evaluated by pulmonology. Pulmonology recommends discharge. At discharge she is without any significant chest pain or shortness of breath. Patient understands that she needs to limit her pain medication. It is recommended that she keep a pill box to make sure she is getting the appropriate amount of medication. Patient understands the risk of overmedication. She also understands the importance of using noninvasive ventilator. At discharge patient will continue with home oxygen to maintain sats above 90%. She will continue to use noninvasive ventilator at night and as needed. Patient will continue with COPD medication Brovana 1 unit dose twice daily, albuterol 1 unit dose 4 times a day as needed for shortness of breath and Atrovent 1 unit dose 4 times a day as needed for shortness of breath. Recommend to follow up with pulmonology in 1 week to follow up this hospitalization. Will help arrange for home health at discharge to help educate and make sure she is compliant with medication regimen and oxygen/noninvasive ventilator. 3. Patient with anemia of chronic disease with iron deficiency. At discharge patient will continue with iron 325 mg 1 pill twice daily. Recommend recheck lab-CBC in 2-4 weeks to monitor progress. 4. Patient with chronic pain. Patient sees pain management in [facility]. Patient will continue with methadone 10 mg 4 times a day and baclofen 10 mg 4 times a day. Patient is to keep medications in a pillbox to make sure she is not over medicating herself. Recommend follow up with pain management this week to further address and monitor. Home health to help with this. 5. Patient with anxiety. Patient will continue with Klonopin 1 mg at bedtime. Will recommend to wean off medication as this may increase sedation. 6. Patient with moderate malnutrition, BMI 14.8. Patient will continue with Ensure 1 can twice daily. 7. Patient found to have UTI. Previous cultures reviewed. Pro calcitonin negative. At discharge she will continue with doxycycline 100 mg twice daily for 7 days. UTI prevention education provided. 8. Patient has chronic right lower extremity wound. Patient recently on Bactroban. Will discontinue Bactrim since the patient will start doxycycline. Patient will continue with current wound care. Diet: Regular Activity: Fall precautions Time spent managing pt's care (in minutes): 55
[2018-10-29 15:17] VITALS: BP 99/67; TEMP 98.1
== END 2018-10-29 15:05 | disposition home health service (06) | DRG 91 ==
LOC: SUPCPDRO 14:29 → ER 14:29 → ERHOLD 18:25 → 3RD-ICU 19:33
PROVIDERS: ADMIT Internal Medicine Sleep Medicine; ATTEND Internal Medicine Sleep Medicine
DX: G92 Toxic encephalopathy (principal); J96.21 Acute and chronic respiratory failure with hypoxia; E44.0 Moderate protein-calorie malnutrition; Z68.1 Body mass index [BMI] 19.9 or less, adult; N39.0 Urinary tract infection, site not specified; T42.4X5A Adverse effect of benzodiazepines, initial encounter; T42.8X5A Adverse effect of antiparkinsonism drugs and other central muscle-tone depressants, initial encounter; T40.3X5A Adverse effect of methadone, initial encounter; J44.9 Chronic obstructive pulmonary disease, unspecified; D50.9 Iron deficiency anemia, unspecified; G89.29 Other chronic pain; F41.9 Anxiety disorder, unspecified; S80.921A Unspecified superficial injury of right lower leg, initial encounter; Z99.81 Dependence on supplemental oxygen
CPT/HCPCS: 36415; 51702; 71045; 80048; 80061; 80076; 80307; 81003; 81015; 82607; 82728; 82805; 83540; 83605; 83735; 83880; 84145; 84439; 84443; 84466; 84484; 85025; 85610; 86850; 86870; 86900; 86901; 87040; 87077; 87086; 87088; 87186; 93005; 94640; 94660; 96361; 96365; 96368; 96375; 99291; 99292; J0696; J1650; J2250; J2310; J2916; J2920; J7030; J7605

== ENCOUNTER 2018-12-13 20:22 | Emergency (ER) | payer OTHER ==
[2018-12-13 21:11] LABS: Absolute Lymphocytes (CBC) 1.8 K/uL (0.7-4.9); Basophils % 1.1 % (0-1.3); Hematocrit 37.3 % (36.0-45.0); Lymphocytes % 25.1 % (15.3-44.8); MPV 10.4 fL (7.6-11.3); RBC Red Blood Cell Count 4.73 M/uL (3.86-4.86)
[2018-12-13 21:26] LABS: ALT/SGPT 43 U/L (12-78); AST/SGOT 42 U/L (15-37); Albumin 3.4 g/dL (3.4-5.0); Alkaline Phosphatase 144 U/L (45-117); BUN Blood Urea Nitrogen 10 mg/dL (7-18); Bicarbonate 36 mmol/L (21-32); Bilirubin Direct 0.1 mg/dL (0-0.2); Bilirubin Total 0.4 mg/dL (0.2-1.0); CKMB Creatine Kinase MB 3.5 ng/mL (0.3-3.6); Creatine Phosphokinase 92 U/L (26-192); Glucose Level 83 mg/dL (74-106); Lipase 27 U/L (73-393); Magnesium 2.1 mg/dL (1.8-2.4); NT PRO-BNP 1134 pg/mL (<125); Potassium 4.2 mmol/L (3.5-5.1); Protein, Total 6.8 g/dL (6.4-8.2); Sodium Level 139 mmol/L (136-145); Troponin (Emerg Dept Use Only) < 0.02 ng/mL (0.0-0.045)
[2018-12-13 21:54] LABS: Protime INR 0.98
--- NOTE | 2018-12-13 22:10 | EDPHYS ---
Physician Documentation [facility] Name: Alee Humphrey Age: 63 yrs Sex: Female : 1955 Arrival Date: 12/13/2018 Time: 20:28 Bed 24 Private MD: ED Physician Negro Clement HPI: 12/13 20:53 This 63 yrs old Female presents to ER via EMS with complaints of COPD ps1 Exacerbation. 20:53 Patient called EMS for respiratory distress. Hx of advance COPD complicated by severe ps1 scoliosis. Patient was on BIPAP and went to use the bathroom and became hypoxic without O2. Called EMS and found to be markedly hypoxic in 50's. Placed on CPAP and given Solu-Medrol and A\T\A. Usually on 2L BNC. Pt denies fever. . Historical: - Allergies: 20:40 Cephalexin Monohydrate; fc 20:40 cyclobenzaprine HCl (Vomiting); fc 20:40 Flexeril; fc 20:40 Keflex (Vomiting); fc - Home Meds: 20:40 methadone 10 mg Oral tab 4 times a day PRN for pain [Active]; baclofen 10 mg Oral tab 1 fc tab every 6 hrs PRN for pain [Active]; clonazepam 1 mg Oral tab at bedtime [Active]; - PMHx: 20:40 Anxiety; chronic back pain; COPD; Depression; CHF; fc - PSHx: 20:40 multiple back surgeries; abdomen; fc - Immunization history:: Last tetanus immunization: up to date Flu vaccine is not up to date. It has been more than one year since last vaccine. - Social history:: Smoking status: Patient uses tobacco products, smokes one-half pack cigarettes per day, Patient/guardian denies using alcohol, street drugs. - Ebola Screening: : Patient negative for fever greater than or equal to 101.5 degrees Fahrenheit, and additional compatible Ebola Virus Disease symptoms Patient denies exposure to infectious person Patient denies travel to an Ebola-affected area in the 21 days before illness onset. ROS: 20:53 Constitutional: Negative for fever, chills, and weight loss, Eyes: Negative for injury, ps1 pain, redness, and discharge, ENT: Negative for injury, pain, and discharge, Cardiovascular: Negative for chest pain, palpitations, and edema, Abdomen/GI: Negative for abdominal pain, nausea, vomiting, diarrhea, and constipation, MS/Extremity: Negative for injury and deformity, Skin: Negative for injury, rash, and discoloration, Neuro: Negative for headache, weakness, numbness, tingling, and seizure. 20:53 Respiratory: Positive for cough, shortness of breath, wheezing. 20:53 Back: Positive for pain with movement, chronic. 20:53 MS/extremity: Exam: 20:53 Constitutional: This is a well developed, well nourished patient who is awake, alert, ps1 and in no acute distress. Head/Face: Normocephalic, atraumatic. Eyes: Pupils equal round and reactive to light, extra-ocular motions intact. Lids and lashes normal. Conjunctiva and sclera are non-icteric and not injected. ENT: Nares patent. No nasal discharge, no septal abnormalities noted. Tympanic membranes are normal and external auditory canals are clear. Oropharynx with no redness, swelling, or masses, exudates, or evidence of obstruction, uvula midline. Mucous membranes moist. Chest/axilla: Normal chest wall appearance and motion. Nontender with no deformity. No lesions are appreciated. Abdomen/GI: Soft, non-tender, with normal bowel sounds. No distension or tympany. No guarding or rebound. No evidence of tenderness throughout. 20:53 Cardiovascular: Rate: tachycardic, Rhythm: regular, Pulses: no pulse deficits are appreciated. 20:53 Respiratory: the patient does not display signs of respiratory distress, Respirations: shallow respirations, tachypnea, Breath sounds: bronchial sounds. 20:53 Back: pain, is absent, ROM is painful, kyphosis, that is marked. Vital Signs: 20:18 BP 136 / 95; Pulse 101; Resp 26; Temp 98.0(A); Pulse Ox 78% on R/A; Weight 40.37 kg fc (R); Height 5 ft. 6 in. (167.64 cm) (R); Pain 8/10; 20:20 Pulse Ox 94% on 50% BiPAP; fc 20:39 Pulse Ox 97% on 35% BiPAP; fc 21:00 BP 120 / 87; Pulse 83; Resp 13 A; Pulse Ox 100% on 35% BiPAP; ca1 21:30 BP 127 / 83; Pulse 78; Resp 15 S; Pulse Ox 99% on 2 lpm NC; ca1 22:30 BP 117 / 90; Pulse 93; Resp 19 S; Pulse Ox 99% on 2 lpm NC; ca1 20:18 Body Mass Index 14.36 (40.37 kg, 167.64 cm) fc MDM: 20:52 Patient medically screened. ps1 22:05 Data reviewed: vital signs, nurses notes, lab test result(s), EKG, radiologic studies, ps1 and as a result, I will discharge patient. Counseling: I had a detailed discussion with the patient and/or guardian regarding: the historical points, exam findings, and any diagnostic results supporting the discharge/admit diagnosis, lab results, radiology results, to return to the emergency department if symptoms worsen or persist or if there are any questions or concerns that arise at home, patient is back to baseline. Does not want to be admitted. On 2L BNC which is baseline. Believes it was 2/2 leaving O2 while ambulating. Maintaining O2 sats >95%. . 12/13 20:44 Order name: Blood Culture Adult (2) ca1 12/13 20:44 Order name: BMP; Complete Time: 21:30 ca1 12/13 20:44 Order name: CBC with Diff; Complete Time: 23:02 ca1 12/13 20:44 Order name: Ckmb; Complete Time: 21:30 ca1 12/13 20:44 Order name: CPK; Complete Time: 21:30 ca1 12/13 20:44 Order name: D-Dimer; Complete Time: 22:01 ca1 12/13 20:44 Order name: Hepatic Function; Complete Time: 21:30 ca1 12/13 20:44 Order name: Lipase; Complete Time: 21:30 ca1 12/13 20:44 Order name: Magnesium; Complete Time: 21:30 ca1 12/13 20:44 Order name: NT PRO-BNP; Complete Time: 21:30 ca1 12/13 20:44 Order name: PT-INR; Complete Time: 22: ca1 12/13 20:44 Order name: Ptt, Activated; Complete Time: 22: ca1 12/13 20:44 Order name: Troponin (emerg Dept Use Only); Complete Time: 21:30 ca1 12/13 21:15 Order name: CBC Smear Scan; Complete Time: 23:02 EDMS 12/13 20:44 Order name: EKG; Complete Time: 20:45 ca1 12/13 20:44 Order name: Cardiac monitoring; Complete Time: 20:45 ca1 12/13 20:44 Order name: EKG - Nurse/Tech; Complete Time: 21:21 ca1 12/13 20:44 Order name: IV Saline Lock; Complete Time: 20:46 ca1 12/13 20:44 Order name: Labs collected and sent; Complete Time: 20:46 ca1 12/13 20:44 Order name: O2 Per Protocol; Complete Time: 20:46 ca1 12/13 20:44 Order name: O2 Sat Monitoring; Complete Time: 20:46 ca1 Administered Medications: No medications were administered Disposition: 12/13/18 22:09 Discharged to Home. Impression: COPD exacerbation. - Condition is Stable. - Discharge Instructions: Chronic Obstructive Pulmonary Disease Exacerbation. - Medication Reconciliation Form, Thank You Letter, Antibiotic Education, Prescription Opioid Use form. - Follow up: Private Physician; When: 24 Hours; Reason: Recheck today's complaints, Continuance of care, Re-evaluation by your physician. Follow up: Emergency Department; When: As needed; Reason: Fever > 102 F, Trouble breathing, Worsening of condition. - Problem is an ongoing problem. - Symptoms have improved. Signatures: Dispatcher [employer] EDMS Edith Genao RN RN Negro Clement MD MD ps1 Jacqueline Bragg RN RN ca1 Corrections: (The following items were deleted from the chart) 23:15 22:09 12/13/2018 22:09 Discharged to Home. Impression: COPD exacerbation. Condition is ca1 Stable. Forms are Medication Reconciliation Form, Thank You Letter, Antibiotic Education, Prescription Opioid Use. Follow up: Private Physician; When: 24 Hours; Reason: Recheck today's complaints, Continuance of care, Re-evaluation by your physician. Follow up: Emergency Department; When: As needed; Reason: Fever > 102 F, Trouble breathing, Worsening of condition. Problem is an ongoing problem. Symptoms have improved. ps1
--- NOTE | 2018-12-13 22:10 | ER ---
Nurse's Notes [facility] Name: Alee Humphrey Age: 63 yrs Sex: Female : 1955 Arrival Date: 12/13/2018 Time: 20:28 Bed 24 Private MD: Diagnosis: COPD exacerbation Presentation: 12/13 20:18 Acuity: FARHAT 2 fc 20:18 Presenting complaint: EMS states: that pt has been short of breath all day and fc lethargic. She took off her o2 to go to bathroom and her sats down to 56% on room air. She then called EMS. Transition of care: patient was not received from another setting of care. Onset of symptoms was December 13, 2018. Risk Assessment: Do you want to hurt yourself or someone else? Patient reports no desire to harm self or others. Initial Sepsis Screen: Does the patient meet any 2 criteria? RR > 20 per min. HR > 90 bpm. Yes Does the patient have a suspected source of infection? No. Patient's initial sepsis screen is negative. If YES to both, name of provider notified: Negro Clement MD. Care prior to arrival: CPAP Medication(s) given: Albuterol Neb x 1, Atrovent Neb x 1, SoluMedrol 125 mg ivp IV initiated. 22 GA, in the left forearm, Oxygen administered. via CPAP or BiPAP. 20:18 Method Of Arrival: EMS: [facility] fc Historical: - Allergies: 20:40 Cephalexin Monohydrate; fc 20:40 cyclobenzaprine HCl (Vomiting); fc 20:40 Flexeril; fc 20:40 Keflex (Vomiting); fc - Home Meds: 20:40 methadone 10 mg Oral tab 4 times a day PRN for pain [Active]; baclofen 10 mg Oral tab 1 fc tab every 6 hrs PRN for pain [Active]; clonazepam 1 mg Oral tab at bedtime [Active]; - PMHx: 20:40 Anxiety; chronic back pain; COPD; Depression; CHF; fc - PSHx: 20:40 multiple back surgeries; abdomen; fc - Immunization history:: Last tetanus immunization: up to date Flu vaccine is not up to date. It has been more than one year since last vaccine. - Social history:: Smoking status: Patient uses tobacco products, smokes one-half pack cigarettes per day, Patient/guardian denies using alcohol, street drugs. - Ebola Screening: : Patient negative for fever greater than or equal to 101.5 degrees Fahrenheit, and additional compatible Ebola Virus Disease symptoms Patient denies exposure to infectious person Patient denies travel to an Ebola-affected area in the 21 days before illness onset. Screenin:18 Abuse screen: Denies threats or abuse. Nutritional screening: No deficits noted. fc Tuberculosis screening: No symptoms or risk factors identified. Fall Risk Fall in past 12 months (25 points). Secondary diagnosis (15 points) impaired mobility, IV access (20 points). Ambulatory Aid- Crutches/Cane/Walker (15 pts). Gait- Weak (10 pts.). Mental Status- Overestimates/Forgets Limitations (15 pts.). Total Drummond Fall Scale indicates High Risk Score (45 or more points). Fall prevention measures have been instituted. Side Rails Up X 2 Placed Close to Nursing Station Frequent Obs/Assessments Occuring As available patient and family educated on Fall Prevention Program and Strategies. Assessment: 20:40 General: Appears in no apparent distress. ill, slender, Behavior is calm, cooperative, ca1 appropriate for age. Pain: Complains of pain in face and scalp Pain currently is 5 out of 10 on a pain scale. Neuro: Level of Consciousness is awake, alert, obeys commands, Oriented to person, place, time, situation. Cardiovascular: Heart tones S1 S2 present Capillary refill < 3 seconds Patient's skin is warm and dry. Rhythm is sinus rhythm. Respiratory: Reports cough that is non-productive, Airway is patent Respiratory effort is even, unlabored, Respiratory pattern is regular, symmetrical, tachypnea Breath sounds are diminished in left posterior upper lobe and left posterior lower lobe Breath sounds with wheezes in right posterior upper lobe and right posterior middle lobe. GI: Abdomen is flat, non-distended, Bowel sounds present X 4 quads. Abd is soft and non tender X 4 quads. : No deficits noted. No signs and/or symptoms were reported regarding the genitourinary system. EENT: No deficits noted. No signs and/or symptoms were reported regarding the EENT system. Derm: Skin is intact, is healthy with good turgor, Skin is pink, warm \T\ dry. Musculoskeletal: Circulation, motion, and sensation intact. Capillary refill < 3 seconds, Range of motion: intact in all extremities. 21:26 Reassessment: Patient appears in no apparent distress at this time. Patient and/or ca1 family updated on plan of care and expected duration. Pain level reassessed. Patient is alert, oriented x 3, equal unlabored respirations, skin warm/dry/pink. Patient states feeling better. 21:37 Reassessment: RT changed from BiPAP to 2LPM via NC. Pt's SPO2 at 99%. Pt tolerating ca1 well. Notified provider. 22:30 Reassessment: Patient appears in no apparent distress at this time. Patient and/or ca1 family updated on plan of care and expected duration. Pain level reassessed. Patient is alert, oriented x 3, equal unlabored respirations, skin warm/dry/pink. Patient states feeling better. Patient states symptoms have improved. 22:53 Reassessment: Awaiting for sister to come pickling solution maker pt. ca1 Vital Signs: 20:18 BP 136 / 95; Pulse 101; Resp 26; Temp 98.0(A); Pulse Ox 78% on R/A; Weight 40.37 kg fc (R); Height 5 ft. 6 in. (167.64 cm) (R); Pain 8/10; 20:20 Pulse Ox 94% on 50% BiPAP; fc 20:39 Pulse Ox 97% on 35% BiPAP; fc 21:00 BP 120 / 87; Pulse 83; Resp 13 A; Pulse Ox 100% on 35% BiPAP; ca1 21:30 BP 127 / 83; Pulse 78; Resp 15 S; Pulse Ox 99% on 2 lpm NC; ca1 22:30 BP 117 / 90; Pulse 93; Resp 19 S; Pulse Ox 99% on 2 lpm NC; ca1 20:18 Body Mass Index 14.36 (40.37 kg, 167.64 cm) ED Course: 20:18 Arm band placed on Patient placed in an exam room, on a stretcher. 20:18 Patient has correct armband on for positive identification. Bed in low position. Call fc light in reach. Side rails up X2. case monitor on. Pulse ox on. NIBP on. Warm blanket given. Pillow given. 20:18 No provider procedures requiring assistance completed. Maintain EMS IV. Dressing fc intact. Good blood return noted. Site clean \T\ dry. Gauge \T\ site: 22 gauge to left forearm. 20:20 O2 via Bipap 12/6, Rate of 15, Fio2 of 50%. fc 20:28 Patient arrived in ED. fc 20:35 Triage completed. fc 20:35 Jacqueline Bragg, RN is Primary Nurse. ca1 20:39 O2 via Bipap 10/5, Rate 12 and FIO2 of 35%. fc 20:45 Initial lab(s) drawn, by me, sent to lab. First set of blood cultures drawn by me. ca1 20:46 Inserted saline lock: 22 gauge in right antecubital area, using aseptic technique. ca1 Blood collected. 20:49 Negro Clement MD is Attending Physician. ps1 22:53 IV discontinued, intact, bleeding controlled, No redness/swelling at site. Pressure ca1 dressing applied. Administered Medications: No medications were administered Outcome: 22:09 Discharge ordered by . ps1 23:14 Discharged to home via wheelchair, with family, sister ca1 23:14 Condition: stable 23:14 Discharge instructions given to patient, Instructed on discharge instructions, follow up and referral plans. Demonstrated understanding of instructions, follow-up care. 23:15 Patient left the ED. ca1 Signatures: Edith Genao RN RN Negro Clement MD MD ps1 Jacqueline Bragg RN RN ca1 Corrections: (The following items were deleted from the chart) 21:29 20:40 Respiratory: Airway is patent Respiratory effort is even, unlabored, Respiratory ca1 pattern is regular, symmetrical, Breath sounds are diminished bilaterally. ca1 21:39 21:24 BP 120 / 87; Pulse 83bpm; Resp 13bpm; Assisted; Pulse Ox 100% 02 35% BiPAP; ca1 ca1
[2018-12-13 22:15] LABS: Anisocytosis SLIGHT; Blood Morphology Comment NOTED (NOT SEEN); Platelet Estimate ADEQ; Urine White Blood Cell Casts OK
[2018-12-14 00:38] VITALS: O2SAT 99
[2018-12-14 00:40] VITALS: BP 117/90
--- NOTE | 2018-12-15 04:44 | EKG ---
Test Date: 2018-12-13 Test Time: 21:18:51 [employer]: MARIN MEASUREMENT RESULTS: Intervals: Rate: 80 SD: 102 QRSD: 88 QT: 378 QTc: 435 [place]: P: 78 SD: 102 QRS: 55 T: 22 INTERPRETIVE STATEMENTS: Sinus rhythm with short SD Otherwise normal ECG Compared to ECG 10/28/2018 14:38:02 Short SD interval now present Atrial premature complex(es) no longer present Left ventricular hypertrophy no longer present Electronically Signed On 12-15-18 04:44:25 CDT by Cisco Harrison
== END 2018-12-13 23:15 | disposition home or self-care (01) ==
LOC: ER 20:22
DX: J44.1 Chronic obstructive pulmonary disease with (acute) exacerbation (principal); F17.210 Nicotine dependence, cigarettes, uncomplicated; I50.9 Heart failure, unspecified; F32.9 Major depressive disorder, single episode, unspecified; F41.9 Anxiety disorder, unspecified; Z88.1 Allergy status to other antibiotic agents; Z88.8 Allergy status to other drugs, medicaments and biological substances
CPT/HCPCS: 36415; 80048; 80076; 82550; 82553; 83690; 83735; 83880; 84484; 85025; 85379; 85610; 85730; 87040; 93005; 99285

== ENCOUNTER 2018-12-26 09:57 | Emergency (ER) | payer OTHER ==
[2018-12-26] MEDS ORDERED: EPINEPHrine 1 MG/10 ML SYR IV ONE (09:58)
--- NOTE | 2018-12-26 12:13 | EDPHYS ---
Physician Documentation [facility] Name: Alee Humphrey Age: 63 yrs Sex: Female : 1955 Arrival Date: 12/26/2018 Time: 10:00 Bed 4 Private MD: ED Physician Adan Orozco HPI: 12/26 10:08 This 63 yrs old Female presents to ER via Unassigned with complaints of CPR. kdr 10:08 Preceding the arrest, the patient was found down by family. The arrest occurred at [facility] home. Pre-hospital course: Bystanders at the scene did not perform CPR. EMS care prior to arrival: initiation of ACLS, peripheral IV, oxygen, EMS on scene time was 30 minutes were spent at scene. Time elapsed prior to ACLS is unknown. ACLS has been in progress for 45 minutes. ACLS details: Initial rhythm was PEA. The presenting rhythm is asystole. Airway: oral intubation, Medications given by EMS prior to arrival - Epinephrine IV x 4 doses, Response to therapy: continued arrest. The patient has not experienced similar symptoms in the past. The patient has not recently seen a physician. Historical: - Allergies: 10:20 Cephalexin Monohydrate; sg 10:20 cyclobenzaprine HCl (Vomiting); sg 10:20 Flexeril; sg 10:20 Keflex (Vomiting); sg - Home Meds: 10:20 baclofen 10 mg Oral tab 1 tab every 6 hrs PRN for pain [Active]; clonazepam 1 mg Oral sg tab at bedtime [Active]; methadone 10 mg Oral tab 4 times a day PRN for pain [Active]; Magnesium Oxide Oral [Active]; Albuterol Inhl [Active]; Ferrous Sulfate Oral [Active]; - PMHx: 10:20 Anxiety; CHF; chronic back pain; COPD; Depression; sg - PSHx: 10:20 multiple back surgeries; abdomen; sg - Immunization history:: Adult Immunizations unknown. - Social history:: Smoking status: unknown. - Ebola Screening: : Unable to complete screening because patient is unresponsive, patient is intubated. ROS: 10:08 Constitutional: Unobtainable - EMS brought Pt to ED without family kdr 10:08 Unable to obtain ROS due to comatose state, patient is on ventilator. Exam: 10:08 Constitutional: This is a well developed, poorly nourished patient who is unresponsive kdr Head/Face: Normocephalic, atraumatic. Eyes: Puplis fixed and dialated Vital Signs: 10:03 Pulse 0; Resp 0; Weight 45.36 kg; Height 5 ft. 2 in. (157.48 cm); sg 10:03 Temp 92.2; sg 10:03 Body Mass Index 18.29 (45.36 kg, 157.48 cm) sg MDM: 11:32 Data reviewed: vital signs, nurses notes, lab test result(s), radiologic studies. kdr Counseling: I had a detailed discussion with the patient and/or guardian regarding: the historical points, exam findings, and any diagnostic results supporting the discharge/admit diagnosis. 12:12 Patient medically screened. kdr 12:12 ED course: Upon arrival, the patient had been unresponsive with a non-perfusing rhythm kdr for approximately 45 minutes. Standard ACLS management was continued in the ED - see the nursing notes. Given the extent of down-time, I d/w daughter the patient's extremely poor prognosis and she indicated that she understood and that we could cease resuscitation efforts. 12/26 10:09 Order name: [facility] - FOR PT WITH NO ID sg Administered Medications: 09:58 Drug: EPINEPHrine 0.1mg/mL 1:10,000 1 mg Route: IVP; Site: left antecubital; sg 10:01 Drug: EPINEPHrine 0.1mg/mL 1:10,000 1 mg Route: IVP; Site: left antecubital; sg Point of Care Testing: Blood Glucose: 10:01 Blood Glucose: 219 mg/dL; sg Ranges: Critical Glucose Levels:Adult <50 mg/dl or >400 mg/dl <40 mg/dl or >180 mg/dl Disposition: 11:31 Critical Care:. . kdr Disposition: Patient pronounced on 12/26/18 10:03 by Adan Orozco. Impression: Cardiopulmonary arrest. - Released to Home. Critical care time excluding procedures: 11:31 Critical care time: Bedside Care: 20 minutes, Family Intervention: 15 minutes. Total kdr time: 35 minutes Signatures: Dispatcher [employer] EDMS Richard Carson RN RN sg Rittger, Kevin, MD MD kdr Corrections: (The following items were deleted from the chart) 12:24 12:12 12/26/2018 12:12 Patient pronounced on 12/26/2018 at 10:03 by Adan Orozco. lulu Impression: Cardiopulmonary arrest. Released to Home. kdr
--- NOTE | 2018-12-26 12:13 | ER ---
Nurse's Notes [facility] Name: Alee Humphrey Age: 63 yrs Sex: Female : 1955 Arrival Date: 12/26/2018 Time: 10:00 Bed 4 Private MD: Diagnosis: Cardiopulmonary arrest Presentation: 12/26 09:48 Presenting complaint: EMS states: pt sister found pt to be unresponsive with warm skin sg temperature but blue in face and chest at around 0900 this morning, EMS report initiating CPR at 0914, last known well at 0100 this AM. 09:48 Care prior to arrival: Medication(s) given: Normal saline infusion, 1000 mL, D1O IV, 50 sg sodium bicarb IV Epinephrin IVP x4. Compressions began at 09:14. 09:48 Method Of Arrival: EMS: [facility] 09:48 Acuity: FARHAT 1 09:48 Care prior to arrival: Assisted ventilation, Oral intubation, CPR manually performed by EMS and is still in progress IV initiated. I/O to RLE Glucose check: 67 Oxygen administered. via AMBU bag upon arrival, D10 given IVP, rechecked result of 146. 09:48 Transition of care: patient was not received from another setting of care. Activity sg prior to arrival: unresponsive. Historical: - Allergies: 10:20 Cephalexin Monohydrate; sg 10:20 cyclobenzaprine HCl (Vomiting); sg 10:20 Flexeril; sg 10:20 Keflex (Vomiting); sg - Home Meds: 10:20 baclofen 10 mg Oral tab 1 tab every 6 hrs PRN for pain [Active]; clonazepam 1 mg Oral sg tab at bedtime [Active]; methadone 10 mg Oral tab 4 times a day PRN for pain [Active]; Magnesium Oxide Oral [Active]; Albuterol Inhl [Active]; Ferrous Sulfate Oral [Active]; - PMHx: 10:20 Anxiety; CHF; chronic back pain; COPD; Depression; sg - PSHx: 10:20 multiple back surgeries; abdomen; sg - Immunization history:: Adult Immunizations unknown. - Social history:: Smoking status: unknown. - Ebola Screening: : Unable to complete screening because patient is unresponsive, patient is intubated. Screenin:48 Abuse screen: N/A. Exposure risk/Travel Screening: None identified. sg Assessment: 09:58 CPR assessment: unresponsive, pupils pinpoint, no respiratory effort, intubated, Ambu sg ventilation, cyanotic, pulses present w/ compressions. Cardiac rhythm is PEA. Neuro: Level of Consciousness is unresponsive. Cardiovascular: Capillary refill is sluggish in bilateral fingers. Respiratory: Airway is patent via oral intubation Trachea midline Respiratory effort is no effort noted, pt is ventilated with no resistance per BLOCK TESTER via BVM. Derm: Skin is dry, Skin is dusky, mottled, pale, Skin temperature is cold. 10:01 CPR assessment: unresponsive, pupils pinpoint, no respiratory effort, intubated, Ambu sg ventilation, cyanotic, pulses present w/ compressions. Cardiac rhythm is PEA. Neuro: Level of Consciousness is unresponsive. Cardiovascular: Rhythm is PEA. Respiratory: Airway is patent via oral intubation Respiratory effort is no respiratory effort noted, pt is easy to bag per BLOCK TESTER. Vital Signs: 10:03 Pulse 0; Resp 0; Weight 45.36 kg; Height 5 ft. 2 in. (157.48 cm); sg 10:03 Temp 92.2; sg 10:03 Body Mass Index 18.29 (45.36 kg, 157.48 cm) sg ED Course: 09:48 sueding machine tender on. Pulse ox on. NIBP on. sg 09:48 Bed in low position. sg 09:50 Missed attempt(s): 20 gauge in left antecubital area. Bleeding controlled, band aid sv applied, catheter tip intact. 09:52 Inserted saline lock: 20 gauge in left upper arm, using aseptic technique. Flushed sv right with 5 ml normal saline. 10:00 Patient arrived in ED. iw 10:02 Arm band placed on. sg 10:03 No provider procedures requiring assistance completed. sg 10:08 Adan Orozco MD is Attending Physician. kdr 10:10 Richard Carson, GUS is Primary Nurse. sg 10:15 Triage completed. sg 10:23 notified sifter operator to come out. bd 12:11 Adan Orozco MD is Pronouncing Provider. kdr Administered Medications: 09:58 Drug: EPINEPHrine 0.1mg/mL 1:10,000 1 mg Route: IVP; Site: left antecubital; sg 10:01 Drug: EPINEPHrine 0.1mg/mL 1:10,000 1 mg Route: IVP; Site: left antecubital; sg Point of Care Testing: Blood Glucose: 10:01 Blood Glucose: 219 mg/dL; sg Ranges: Outcome: 10:03 Outcome Patient sg 10:03 Patient : Time of 10:03 Pronounced by Adan Orozco MD 10:03 Condition: 12:24 Patient left the ED. sg Signatures: Geri Harper Stephanie, RN RN sv Richard Carson RN RN sg Adan Orozco MD MD [facility] Ratna Lynn RN RN Corrections: (The following items were deleted from the chart) 10:15 10:02 Presenting complaint: EMS states: pt sister found pt to be unresponsive with warm sg skin temperature but blue in face and chest at around 0900 this morning, EMS report initiating CPR at 0914, last known well at 0100 this AM sg 10:36 09:48 Patient has correct armband on for positive identification. Bed in low position. sg Call light in reach. Side rails up X2. sg
[2018-12-26 12:28] VITALS: TEMP 92.2
== END 2018-12-26 12:24 | disposition expired ==
LOC: ER 09:57
DX: I46.9 Cardiac arrest, cause unspecified (principal); I50.9 Heart failure, unspecified; J44.9 Chronic obstructive pulmonary disease, unspecified; F41.8 Other specified anxiety disorders; Z88.1 Allergy status to other antibiotic agents
CPT/HCPCS: 36415; 82962; 96374; 92950; 99285; J0171